=== PATIENT | female | born 1940 | race Caucasian/White ===

== ENCOUNTER 2017-11-26 13:28 | Emergency (ER) | payer MEDICARE ==
[~2017-11-26] VITALS: Ht 162.6 cm; Wt 90.7 kg
[~2017-11-26 13:28] MED LIST: ALTOPREV20 MG PO; AMBIEN10 MG PO; BACTRIM 400-801 EACH PO; BACTRIM DS TAB1 EACH PO; CIPRO500 MG PO; CYCLOBENZAPRINE10 MG PO; FLAGYL500 MG PO; FORTAMET500 MG PO; HYDROCODON-ACE1 EA11 PO; LIPITOR10 MG PO; LISINOPRIL10 MG PO; LISINOPRIL20 MG PO; MELOXICAM15 MG PO; METFORMIN HCL500 M1 PO; METFORMIN HCL500 MG PO; MIRALAX17 GM PO; NORCO 5-325 TA1 EACH PO; NORCO 7.5-3251 EACH PO; OMEPRAZOLE20 MG PO; ONDANSETRON ODT4 MG SL; OXECTA7.5 MG PO; PAROXETINE HCL20 MG PO; PAXIL20 MG PO; PERCOCET 5-3251 EACH PO; POTASSIUM99 MG PO; SUDOGEST30 MG PO; TRAMADOL HCL50 MG PO; VITAMIN D2000 UNIT PO; XARELTO10 MG PO; ZOFRAN4 MG PO
== END 2017-11-26 13:44 | disposition home or self-care (01) ==
LOC: ED 13:28
DX: R30.9 Painful micturition, unspecified (principal); Z87.891 Personal history of nicotine dependence

== ENCOUNTER 2018-07-31 07:55 | Day surgery (SDC) | payer MEDICARE ==
[~2018-07-31] VITALS: Ht 162.6 cm; Wt 90.7 kg
[~2018-07-31 07:55] MED LIST changes: +COQ-10100 MG PO
--- NOTE | 2018-07-31 11:09 | NUR ---
07/31/18 1109 Frida Bryant 1005- PT ARRIVES TO PACU FROM OR ON 6 L MASK WITH SATS 100%. RESP EVEN AND UNLABORED. PT UNRESPONSIVE TO VERBAL STIMULUS. NASAL PACKING AND GAUZE CDI. 1009- PT SITS UP IN BED AND BEGINS COUGHING FORCEFULLY. RN SUCTIONS AT BEDISDE. SWING DRIVER TAKES OVER ON SUCTION AND PT'S AIRWAY SUCTIONED. BLOODY DRAINAGE.
--- NOTE | 2018-07-31 12:35 | NUR ---
1200: PATIENT BACK IN DAY SURGERY ROOM FROM PACU. PATIENT C/O HEADACHE. UNABLE TO RATE PAIN, BUT STATES SHE IS HAVING PAIN. USING ICE PACK TO FOREHEAD. PATIENT HAS NASAL PACKING IN PLACE WITH MOUSTACHE DRESSING WITH MODERATE RED DRAINAGE. LEFT SIDE OF FACE BOTTOM OF CHEEK SLIGHTLY SWOLLEN, SOFT. DR. BLACKWOOD AWARE. PATIENT OFFERED SOMETHING TO EAT SO SHE COULD BE MEDICATED WITH PO PAIN PILLS. PATIENT DECLINED EATING AT THIS TIME. VS CHECKED. CALL LIGHT WITHIN REACH. SCDs ON. 1225: MOUSTACHE DRESSING CHANGED. PATIENT COUGHING INTERMITTENTLY. PRODUCTIVE COUGH, WITH BLOOD TINGED SPUTUM. PATIENT ASSISTED OOB AND TO BATHROOM. GAIT STEADY. PATIENT HAD SOME INCONTINENCE IN BED. BED SHEETS CHANGED. VOID WITHOUT DIFFICULTY IN BATHROOM. PATIENT ASSISTED BACK TO ROOM. GAIT STEADY. SCDs REPLACED. CALL LIGHT WITHIN REACH. 1230: PATIENT GIVEN JELLO TO EAT, THEN MEDICATED FOR 5/10 HEADACHE PAIN WITH 2 TABS OF NORCO.
--- NOTE | 2018-07-31 13:02 | NUR ---
TOWEL GIVEN TO COVER HER HEAD D/T LIGHT COMING INTO THE ROOM. PATIENT DENIES WANTING THE CURTAIN CLOSED SHE IS "CLAUSTROPHOBIC". PATIENT ASSISTED TO THE BATHROOM. FAMILY @ BS. PATIENT AMBULATES WELL AND DENIES DIZZINESS. CALL LIGHT W/IN REACH.
[2018-07-31] MEDS ORDERED: KEFLEX500 MG PO (13:51)
[2018-07-31] MEDS ORDERED: NORCO 5-325 TA1 EACH PO (13:51)
--- NOTE | 2018-07-31 14:33 | NUR ---
1405: PATIENT TOLERATED MORE JELLO AND ICE CREAM. WATCHING TV. STATES SHE'S FEELING MUCH BETTER. CALL LIGHT WITHIN REACH. SCDs ON.
--- NOTE | 2018-07-31 14:40 | NUR ---
MOKAILEYACHE DRESSING CHANGED X 2.
--- NOTE | 2018-07-31 15:17 | NUR ---
1455: PATIENT STATES READY TO GO HOME. DRESSED WITH HELP FROM FRIEND. DISCHARGE INSTRUCTIONS GIVEN TO PATIENT AND FRIEND. IV DC'D WNL. TIP INTACT. DRESSING APPLIED. PATIENT DISCHARGED TO HOME WITH FRIEND VIA WHEELCHAIR.
--- NOTE | 2018-08-07 12:22 | OR ---
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 POSTOPERATIVE DIAGNOSIS: Nasal obstruction due to septal deformity and inferior turbinate hypertrophy. PROCEDURE: Septoplasty. Cautery of the inferior turbinates, submucosal. SURGEON: Erasmo Monson MD ANESTHESIA: General LMA. ROTARY LITHOGRAPHIC PRESS OPERATOR Philip. PREOPERATIVE HISTORY: Tree is a 78-year-old lady with nasal obstruction, sinus headaches due to inferior turbinate hypertrophy and septal deformity. Sinus CT has otherwise been negative. She is taken to the operating room for the above-mentioned procedures after failure of appropriate medications to alleviate her condition. OPERATIVE PROCEDURE AND FINDINGS: After informed consent, the patient was taken to the operating room, placed in the supine position where general LMA anesthesia was induced. The patient and procedure were verified. The patient received preoperative intranasal oxymetazoline and intravenous Ancef. Headlight speculum exam of the nasal cavity showed a significant septal deformity, left-sided, partially obstructive with this large spur back posteriorly. The septal mucosa was injected with 1% lidocaine with epi. The mucosa was elevated off the deviated bone and cartilage and that bone and cartilage was removed with the Arlene. The septum was medialized, and airway improved in this manner. The inferior turbinates were then cauterized with a long handle needle point cautery, multiple passes starting on the right medial and inferior surface of the inferior turbinate extending all the way back posteriorly. Excellent decongestion of the inferior turbinate, shrinkage in size was obtained. Same procedure on the left inferior turbinate. Bleeding was minimal, stopped afterwards. Packing was placed, trimmed. Electronically Signed By: ERASMO MONSON MD 08/07/18 1222 PATIENT NAME: TREE GARCIA OPERATIVE REPORT DATE OF : 44 REPORT #: [id number] PHYSICIAN: ERASMO MONSON MD PCP: KING CAPUTO REPORT IS CONFIDENTIAL AND NOT TO BE RELEASED WITHOUT AUTHORIZATION [facility] [address] [place], [place] [address] Signed Merocel equal amount each side coated with Neosporin tied anteriorly over a pad. The pharynx was suctioned clear of blood and secretions. The patient was then awakened, extubated, transported to the recovery room in good condition. No complications. BLOOD LOSS: Minimal. SPECIMENS: Septal cartilage to pathology packing one piece of mesh with Merocel each nostril. Blood loss minimal. No complications and no drains. Erasmo Monson MD GC/MODL /[id number] Copies: ~ Electronically Signed By: ERASMO MONSON MD 08/07/18 1222 PATIENT NAME: TREE GARCIA OPERATIVE REPORT DATE OF : 44 REPORT #: [id number] PHYSICIAN: ERASMO MONSON MD PCP: KING CAPUTO REPORT IS CONFIDENTIAL AND NOT TO BE RELEASED WITHOUT AUTHORIZATION
== END 2018-07-31 15:10 | disposition home or self-care (01) ==
LOC: DS 07:55
PROVIDERS: Otolaryngology
PROC: 09SM0ZZ Reposition Nasal Septum, Open Approach (ICD-10-PCS; principal; 2018-07-31 09:45)
PROC: 095L0ZZ Destruction of Nasal Turbinate, Open Approach (ICD-10-PCS; 2018-07-31 09:45)
DX: J34.2 Deviated nasal septum (principal); J34.3 Hypertrophy of nasal turbinates; J34.89 Other specified disorders of nose and nasal sinuses; I10 Essential (primary) hypertension; E78.00 Pure hypercholesterolemia, unspecified; H91.90 Unspecified hearing loss, unspecified ear; Z79.899 Other long term (current) drug therapy; Z79.84 Long term (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 hypoglycemic drugs
CPT/HCPCS: 00160; 88304; 88311; J0690; J2405; J2704; J2765; J3010; J7120

== ENCOUNTER 2019-03-21 04:41 | Emergency (ER) | payer MEDICARE ==
[~2019-03-21] VITALS: Ht 162.6 cm; Wt 90.7 kg
[~2019-03-21 04:41] MED LIST changes: +KEFLEX500 MG PO
--- OUTSIDE RECORDS SUMMARY | 2019-03-21 04:44 | XMS ---
PreManage Notification: TREE GARCIA Security Boiler Erector Events No recent Security Events currently on file CRITERIA MET - [facility] CARE PROVIDERS Johnathan Quintero Primary Care Current PHONE: Unknown yue Case or Cisco Certified Internetwork Expert Current PHONE: Unknown Fortunato Cavalier Baljeet Current Orthopedic Surgery \T\ Fracture Clinic PHONE: Unknown Artis has no Care Guidelines for this patient. ECherelle VISIT COUNT (12 MO.) [facility] TOTAL 2 NOTE: Visits indicate total known visits. ED/UCC VISIT TRACKING (12 MO.) 03/21/2019 04:42 [facility] TYPE: Emergency COMPLAINT: - FALL, DIZZINESS,BLOOD SUGAR PROBLEM 10/01/2018 00:50 [facility] TYPE: Emergency DIAGNOSES: - Low back pain - Dorsalgia, unspecified - Back Pain INPATIENT VISIT TRACKING (12 MO.) No inpatient visits to display in this time frame [email or web address]
[2019-03-21] MEDS ORDERED: LISINOPRIL10 MG PO (05:01)
[2019-03-21] MEDS ORDERED: NEURONTIN300 MG PO (05:07)
[2019-03-21] MEDS ORDERED: FLONASE ALLERG9.9 ML NAS (05:07)
[2019-03-21] MEDS ORDERED: KRILL OIL 3501 EACH PO (05:08)
[2019-03-21] MEDS ORDERED: ROSUVASTATIN CA10 MG PO (05:08)
[2019-03-21] MEDS ORDERED: TRAMADOL HCL50 MG PO (06:28)
--- NOTE | 2019-03-21 14:35 | EKG ---
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
== END 2019-03-21 06:50 | disposition home or self-care (01) ==
LOC: ED 04:41
DX: S06.0X0A Concussion without loss of consciousness, initial encounter (principal); S80.01XA Contusion of right knee, initial encounter; I10 Essential (primary) hypertension; E11.9 Type 2 diabetes mellitus without complications; E78.5 Hyperlipidemia, unspecified; Z87.891 Personal history of nicotine dependence; Z88.5 Allergy status to narcotic agent; Z79.84 Long term (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 hypoglycemic drugs; Z79.899 Other long term (current) drug therapy; W01.198A Fall on same level from slipping, tripping and stumbling with subsequent striking against other object, initial encounter
CPT/HCPCS: 70450; 72125; 73560; 80053; 81001; 83735; 84484; 85025; 85610; 85730; 93005; 93010; 96361; 96374; 96375; 99285-25; J2270; J2405; J7040

== ENCOUNTER 2019-03-31 23:55 | Day surgery (SDC) | payer MEDICARE ==
[~2019-03-31] VITALS: Ht 162.6 cm; Wt 88.5 kg
[~2019-03-31 23:55] MED LIST changes: +FLONASE ALLERG9.9 ML NAS; +KRILL OIL 3501 EACH PO; +NEURONTIN300 MG PO; +ROSUVASTATIN CA10 MG PO
--- OUTSIDE RECORDS SUMMARY | 2019-03-31 23:58 | XMS ---
PreManage Notification: TREE GARCIA Security Court Registry Officer Events No recent Security Events currently on file CRITERIA MET - [facility] - [facility] - 2 Visits in 30 Days CARE PROVIDERS KING CAPUTO Nurse Practitioner: 03/21/2019-Current PHONE: Unknown Johnathan Quintero Primary Care Current PHONE: Unknown yue Case or Straddle Truck Operator Current PHONE: Unknown Fortunato Delong Current Orthopedic Surgery \T\ Fracture Clinic PHONE: Unknown Artis has no Care Guidelines for this patient. Angelica VISIT COUNT (12 MO.) 1 [facility] 2 [facility] TOTAL 3 NOTE: Visits indicate total known visits. ED/UCC VISIT TRACKING (12 MO.) 03/31/2019 23:55 [facility] TYPE: Emergency COMPLAINT: - CHEST PAIN 03/21/2019 04:42 [facility] TYPE: Emergency COMPLAINT: - FALL, DIZZINESS,BLOOD SUGAR PROBLEM DIAGNOSES: - Contusion of right knee, initial encounter - Fall on same level from slipping, tripping and stumbling with subsequent striking against other object, initial encounter - Personal history of nicotine dependence - Hyperlipidemia, unspecified - Allergy status to narcotic agent status - skilled nursing (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 hypoglycemic drugs - Type 2 diabetes mellitus without complications - Other buttermaker continuous churn (current) drug therapy - Concussion without loss of consciousness, initial encounter - Dizziness and giddiness - Essential (primary) hypertension [facility]01/2018 00:50 [facility]: [facility] DIAGNOSES: - Low back pain - Dorsalgia, unspecified - Back Pain INPATIENT VISIT TRACKING (12 MO.) No inpatient visits to display in this time frame [email or web address]
--- NOTE | 2019-04-01 09:32 | NUR ---
PT CALL LIGHT ALARMING. PT REQUESTS TO USE BATHROOM. PT AMBULATES IN [place] WITH STAND BY ASSIST FROM THIS RN. PT ABLE TO VOID WITHOUT DIFFICULTY AND AMBULATES BACK TO BED. CALL LIGHT WITHIN REACH
--- NOTE | 2019-04-01 09:59 | NUR ---
04/01/19 0959 Malathi Sheppard 0902 PT ARRIVED TO PACU ON 4L VIA NC, RESP EVEN AND UNLABORED.
--- NOTE | 2019-04-02 09:18 | EKG ---
[facility] [address] 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
--- NOTE | 2019-04-02 12:36 | OR ---
[facility] [address] [place], [place] [address] Signed DATE OF OPERATION: SURGEON: Marcelo Long MD PREOPERATIVE DIAGNOSIS: Dysphagia. POSTOPERATIVE DIAGNOSES: 1. Dysphagia. 2. Erosive gastritis. PROCEDURE PERFORMED: EGD with biopsies. ANESTHESIA: MAC sedation. ESTIMATED BLOOD LOSS: Scant. SPECIMENS ACQUIRED: Biopsies of distal antrum, angularis, and EG junction. COMPLICATIONS: No complications incurred. INDICATIONS FOR PROCEDURE: This 78-year-old woman experienced dysphagia with lodging of a meat bolus in her esophagus 4 days ago that she was able to dislodge and expectorate within 5 minutes. However, she thereafter experienced ongoing dysphagia and pain in her mid chest from swallowing solid foods, radiating into her back and right shoulder. She was able to ingest liquids without difficulty and experienced no recurrent obstruction of her esophagus. FINDINGS AND DESCRIPTION OF PROCEDURE: The patient was maintained in the left recumbent position while time was paused to verify her identity, proposed procedure and safety check list. After induction of MAC sedation, a bite block was placed and the flexible gastroscope inserted, passed uneventfully beyond the esophagus and into the stomach that was insufflated Electronically Signed By: MARCELO LONG MD 04/02/19 1236 PATIENT NAME: TREE GARCIA OPERATIVE REPORT DATE OF : 44 REPORT #: [id number] PHYSICIAN: MARCELO LONG MD PCP: KING CAPUTO VAMP STITCHER REPORT IS CONFIDENTIAL AND NOT TO BE RELEASED WITHOUT AUTHORIZATION [facility] [address] [place], [place] [address] Signed for better visualization. Retroflexion of the endoscope to view the esophageal inlet revealed no varices, Agueda-Sams tear, stenosis, neoplasia, hiatal hernia, or active ulcers. Scattered superficial erosive gastritis was present in the fundus and antrum, with a questionable small prepyloric ulcer versus nondescript mucosal edema. The endoscope was advanced beyond the pylorus into the duodenum, inspecting the bulb, second portion and third portions of the duodenum and noting no evidence of active ulcers, erosion, duodenitis, Dieulafoy lesion, stenosis, neoplasia, or other visible abnormalities. The endoscope was retracted into the stomach and the distal antrum once again inspected, next acquiring biopsies for histology as well as JAMARCUS test. Blood loss was scant and hemostasis was spontaneous, then careful re-inspection of the cardia, fundus, body and antrum revealed no additional abnormalities. The stomach was desufflated and the endoscope retracted into the distal esophagus, identifying the EG junction at 35 cm from the incisors. No varices, Gonzalez changes, web, ring, achalasia, neoplasm, mass impingement or stenosis were recognized. An additional biopsy was acquired from the EG junction, then the endoscope carefully withdrawn throughout the length of the esophagus to inspect the distal, middle, proximal and inlet regions of the esophagus where no stenosis, narrowing, mass impingement or inflammation was identified. Secretions were aspirated from the pharynx and the larynx briefly examined, noting no gross abnormalities. Again, no pharyngeal neoplasm was recognized, therefore, the endoscope was removed to conclude the endoscopic procedure. The patient was awakened from her sedation and transported to the PACU in satisfactory condition prior to her release. She may thereafter follow up with her PCP. Marcelo Long MD Electronically Signed By: MARCELO LONG MD 04/02/19 1236 PATIENT NAME: TREE GARCIA OPERATIVE REPORT DATE OF : 44 REPORT #: [id number] PHYSICIAN: MARCELO LONG MD PCP: KING CAPUTO REPORT IS CONFIDENTIAL AND NOT TO BE RELEASED WITHOUT AUTHORIZATION [facility] [address] [place] [address] Signed ZAHRA /[id number] Copies: ~ Electronically Signed By: MARCELO LONG MD 04/02/19 1236 PATIENT NAME: TREE GARCIA OPERATIVE REPORT DATE OF : 44 REPORT #: [id number] PHYSICIAN: MARCELO LONG MD PCP: KING CAPUTO REPORT IS CONFIDENTIAL AND NOT TO BE RELEASED WITHOUT AUTHORIZATION
--- NOTE | 2019-04-02 12:45 | HP ---
[facility] [address] [place], [place] [address] Signed ADMISSION DATE: 04/01/2019 DATE OF ADMISSION: 04/01/2019 HISTORICAL SUMMARY: This 78-year-old female was evaluated in the emergency department today with complaints of ongoing dysphagia for the last 4 days. She swallowed a bolus of meat 4 days ago and experienced dysphagia with the bolus sticking in her mid esophagus, causing pain in the mid chest region radiating into her back and right shoulder. After 5 minutes, she was able to dislodge and expectorate the meat bolus, but has since experienced ongoing discomfort in the same region of her chest for the last 4 days with eating. She is able to handle her oral secretions and drink water and other liquids without difficulty, yet has confined herself to a soft diet that still causes her discomfort when she swallows. She denied GI bleeding or prior history of food impactions. Aside from GERD, for which she takes Tums, she denied ulcers or other gastrointestinal disorders. PAST MEDICAL HISTORY: Remarkable for hypercholesterolemia for which she takes statin drugs every other day, hypertension treated with lisinopril and prediabetes managed with Metformin. She also has restless leg syndrome for which she takes gabapentin and occasionally Flexeril, and has an "attitude" problem that is treated with Paxil. She denied any other illnesses, prescription medications or history of venous thromboembolism, use of anticoagulants or tobacco consumption. Her surgical history was remarkable for a tubal treated with left salpingectomy in 1972 with incidental appendectomy. She also underwent D&C's for miscarriages, right hip replacement in January of 2003, left hip replacement in May of 2003, right shoulder replacement in 2006, left shoulder replacement in 2010, EGD more than 5 years ago and left knee replacement in 2016. Electronically Signed By: KAMI CHENG MD 04/02/19 1245 PATIENT NAME: TREE GARCIA HISTORY AND PHYSICAL DATE OF : 44 REPORT #: [id number] PHYSICIAN: KAMI CHENG MD PCP: KING CAPUTO REPORT IS CONFIDENTIAL AND NOT TO BE RELEASED WITHOUT AUTHORIZATION [facility] [address] [place], [place] [address] Signed There were no other operations recalled and she denied additional chronic medical illnesses. Ethanol intake is occasional and she is allergic to Dilaudid that causes headaches and vomiting. She received a blood transfusion in 1969 during one of her miscarriages. REVIEW OF SYSTEMS: Noncontributory. PHYSICAL EXAMINATION: GENERAL: Revealed a well-developed, well-nourished, overweight elderly female who was alert and articulate, in no acute physical discomfort. HEENT: Negative for jaundice, pallor, cyanosis, cervical lymphadenopathy, thyromegaly, crepitus, edema, masses, bruits, hemangiomas or tenderness. NECK: Muscles were supple with full range of motion, no acute oropharyngeal lesions were recognized and Mallampati was type 2. HEART: Tones were distant with no audible murmur, gallop, click or rub. LUNGS: Clear by ausculation bilaterally with full and symmetrical breath sounds heard posteriorly and no audible rales, wheezes, stridor or rhonchi. STUDIES: A chest x-ray film obtained in the emergency department overnight was unremarkable. ECG illustrated an inferior infarction, age undetermined, with no other acute changes described. IMPRESSION: A 78-year-old female with persistent dysphagia after a solitary initial episode of food impaction 4 days ago. Consideration must be given to esophagitis, neoplasia or stricture as potential underlying causes. PLAN: The patient was counseled about the possibilities, her treatment alternatives, the scope in nature of EGD with possible biopsies, rationale, risks, potential complications and other relevant concerns. Her questions were answered fully to her understanding and satisfaction and she granted her informed consent for esophagogastroduodenoscopy with possible biopsies that will be conducted under MAC sedation with anesthesia standby. Electronically Signed By: KAMI CHENG MD 04/02/19 1245 PATIENT NAME: TREE GARCIA HISTORY AND PHYSICAL DATE OF : 44 REPORT #: [id number] PHYSICIAN: KAMI CHENG MD PCP: KING CAPUTO REPORT IS CONFIDENTIAL AND NOT TO BE RELEASED WITHOUT AUTHORIZATION [address] [address] Signed The endoscopy staff has been notified and arrangements are pending. MD IGNACIO Duran/OMER /[id number] Copies: ~ Electronically Signed By: KAMI CHENG MD 04/02/19 1245 PATIENT NAME: TREE GARCIA HISTORY AND PHYSICAL DATE OF : 44 REPORT #: [id number] PHYSICIAN: KAMI CHENG MD PCP: KING CAPUTO REPORT IS CONFIDENTIAL AND NOT TO BE RELEASED WITHOUT AUTHORIZATION
== END 2019-04-01 10:55 | disposition home or self-care (01) ==
LOC: ED 23:55 → DS 04-01 08:18
PROVIDERS: Surgery
PROC: 0DB68ZX Excision of Stomach, Via Natural or Artificial Opening Endoscopic, Diagnostic (ICD-10-PCS; 2019-04-01)
PROC: 0DB48ZX Excision of Esophagogastric Junction, Via Natural or Artificial Opening Endoscopic, Diagnostic (ICD-10-PCS; principal; 2019-04-01 10:00)
DX: K29.60 Other gastritis without bleeding (principal); K20.9 Esophagitis, unspecified; I10 Essential (primary) hypertension; E78.00 Pure hypercholesterolemia, unspecified
CPT/HCPCS: 71046; 80053; 84484; 85025; 85610; 85730; 86677; 93005; 93010; 96365; 96366; 99285-25; J2704; J3480; J7040; J7120

== ENCOUNTER 2019-04-04 16:56 | Emergency (ER) | payer MEDICARE ==
[~2019-04-04] VITALS: Ht 162.6 cm; Wt 88.5 kg
--- OUTSIDE RECORDS SUMMARY | 2019-04-04 17:00 | XMS ---
PreManage Notification: TREE GARCIA Security Automobile Service Advisor Events No recent Security Events currently on file CRITERIA MET - [facility] - Has Care Guidelines - PDMP - [facility] - 2 Visits in 30 Days CARE PROVIDERS KING CAPUTO Nurse Practitioner: 03/21/2019-Current PHONE: Unknown Johnathan Quintero Primary Care Ann LOPEZ PHONE: Unknown yue Case or Punch Press Feeder Current PHONE: Unknown Fortunato Delong Current Orthopedic Surgery \T\ Fracture Clinic PHONE: Unknown Artis has no Care Guidelines for this patient. Care History Medical/Surgical 04/02/2019 [facility] - Patient is currently established with [facility]. If patient is seen in the ED during business hours. Please contact CHWs at [facility]. Care Recommendation: This patient has had 5 or more Emergency Department visits in the last 12 months.\T\nbsp; Patient requires education on the scope and purpose of the ED as an acute care provider not a Primary Care Provider and should not be utilized for chronic conditions.\T\nbsp; These are guidelines and the provider should exercise clinical judgment when providing care. E.D. VISIT COUNT (12 MO[address] 1 [facility] 3 [facility] TOTAL 4 NOTE: Visits indicate total known visits. ED/UCC VISIT TRACKING (12 MO.) 04/04/2019 16:57 [facility] TYPE: Emergency COMPLAINT: - HEAD/ LEFT ELBOW INJURY 03/31/2019 23:55 [facility] TYPE: Emergency [...] Allergy status to narcotic agent status - global consumer sector vice president (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 hypoglycemic drugs - Type 2 diabetes mellitus without complications - Other nursing home (current) drug therapy - Concussion without loss of consciousness, initial encounter - Dizziness and giddiness - Essential (primary) hypertension [facility]/2018 00:[facility] TYPE: Emergency DIAGNOSES: - Low back pain - Dorsalgia, unspecified - Back Pain INPATIENT VISIT TRACKING (12 MO.) No inpatient visits to display in this time frame [email or web address]
== END 2019-04-04 17:52 | disposition home or self-care (01) ==
LOC: ED 16:56
DX: S50.312A Abrasion of left elbow, initial encounter (principal); I10 Essential (primary) hypertension; E11.9 Type 2 diabetes mellitus without complications; E78.5 Hyperlipidemia, unspecified; Z88.5 Allergy status to narcotic agent; Z79.899 Other long term (current) drug therapy; Z79.84 Long term (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 hypoglycemic drugs; W18.30XA Fall on same level, unspecified, initial encounter
CPT/HCPCS: 99283

== ENCOUNTER 2019-05-29 07:45 | Emergency (ER) | payer MEDICARE ==
[~2019-05-29] VITALS: Ht 162.6 cm; Wt 88.5 kg
--- OUTSIDE RECORDS SUMMARY | ~2019-05-29 | XMS | Encounter Summary ---
Demographics + + + | Address | [address] | | | [place] [address] | + + + | Home Phone | | + + + | Preferred Language | Unknown | + + + | Marital Status | | + + + | Restorationist Affiliation | 1041 | + + + | Race | Unknown | + + + | Ethnic Group | Unknown | + + + Author + + + | Author | [facility] | | | and [place] | + + + | Organization | [facility] | | | and [...] [place], [place] | | | | | [address] | | + + + + + | Mercedes Lemus | ECON | [place] | | | | | [address] | | + + + + + Care Team Providers + +------+ + | Care Shovel Mechanic Name | Role | Phone | + +------+ + | Martell Hilario NP | PCP | | + +------+ + Encounter Details +--------+ + + + + | Date | Type | Department | Care Team | Description | +--------+ + + + + | 03/21/ | Imaging | JESIKA ARMANDO | Provider, | | | 2019 | Exam | [facility] | MD [address] | | | | | IMAGING | Gagandeep Tran | | | | | [phone] | [place] [address] | | +--------+ + + + + [...] + +---------+ + | Alcohol Use | Drinks/We | oz/Week | Comments | | | ek | | | + + +---------+ + | Yes | 0 | 0.0 | Alcoholic Drinks/day: socially | | | Standard | | | | | drinks or | | | | | | | | | | equivalen | | | | | t | | | + + +---------+ + [...] this | | CONTRAST | e | 0:00 PDT | | procedure are in the | | | | | | results section. | + +--------+ + + + documented in this encounter Results CT Cervical Spine wo Contrast (03/21/2019 0:00 PDT) + + | Specimen | + [...]
--- OUTSIDE RECORDS SUMMARY | ~2019-05-29 | XMS | Encounter Summary ---
Demographics + + + | Address | [address] | | | [place] [address] | + + + | Home Phone | | + + + | Preferred Language | Unknown | + + + | Marital Status | | + + + | Druze Affiliation | 1041 | + + + | Race | Unknown | + + + | Ethnic Group | Unknown | + + + Author + + + | Author | [facility] | | | and [place] | + + + | Organization | [facility] | | | [...] [place], [place] | | | | | [address] | | + + + + + | Mercedes Lemus | ECON | [place] | | | | | [address] | | + + + + + Care Team Providers + +------+ + | Care Method Consultant Name | Role | Phone | + [...] Gagandeep Tran | | | | | [phone] | [place] [address] | | +--------+ + + + + [...] + documented in this encounter Results CT Head wo Contrast (03/21/2019 0:05 [...]
--- OUTSIDE RECORDS SUMMARY | ~2019-05-29 | XMS | Encounter Summary ---
Demographics + + + | Address | [address] | | | [place] [address] | + + + | Home Phone | | + + + | Preferred Language | Unknown | + + + | Marital Status | | + + + | Tenriism Affiliation | 1041 | + + + | Race | Unknown | + + + | Ethnic Group | Unknown | + + + Author + + + | Author | [facility] | | | and [place] | + + + | Organization | [facility] | | | [...] [place], [place] | | | | | [address] | | + + + + + | Mercedes Lemus | ECON | [place] | | | | | [address] | | + + + + + Care Team Providers + +------+ + | Care Medical Office Manager Name | Role | Phone | [...] Gagandeep Tran | | | | | [phone] | [place] [address] | | +--------+ + + + + [...]
--- OUTSIDE RECORDS SUMMARY | ~2019-05-29 | XMS | Clinical Summary ---
Demographics + + + | Address | [address] | | | [place] [address] | + + + | Home Phone | | + + + | Preferred Language | Unknown | + + + | Marital Status | | + + + | Caodaism Affiliation | 1041 | + + + | Race | Unknown | + + + | Ethnic Group | Unknown | + + + Author + + + | Author | [facility] | | | and [place] | + + + | Organization | [facility] | | | and [...] [place], [place] | | | | | [address] | | + + + + + | Mercedes Lemus | ECON | [place] | | | | | [address] | | + + + + + Care Team Providers + +------+ + | Care Contact Center Agent Name | Role | Phone | + [...] +--------+ +---------+--------+ | MEDICARE | MEDICA | [id number] | | [phone] | | Medica | [...] | Self | [birth year] | [address] | | | al/[place]quale | | 1940 | [phone] | [place] | | | dayna | | | 1 (Home) | [address] | + +--------+ +--------+ + + Advance Directives Patient has advance care planning documents on file. For more information, please contact:[facility] [place] [address]
--- OUTSIDE RECORDS SUMMARY | ~2019-05-29 | XMS | Clinical Summary ---
Demographics + + + | Address | [address] | | | [place] [address] | + + + | Home Phone | | + + + | Preferred Language | Unknown | + + + | Marital Status | | + + + | Advent Affiliation | 1041 | + + + | Race | Unknown | + + + | Ethnic Group | Unknown | + + + Author + + + | Author | [facility] | | | and [place] | + + + | Organization | [facility] | | [...] [place], [place] | | | | | [address] | | + + + + + | Mercedes Lemus | ECON | [place] | | | | | [address] | | + + + + + Care Team Providers + +------+ + | Care Animal Rides Manager Name | Role | Phone | [...] +--------+ +---------+--------+ | MEDICARE | MEDICA | [id number] | | [phone] | | Medica | [...] | Self | [birth year] | | [address] | | | al/[place] | | 1940 | [phone] | [place] | | | dayna | | | 1 (Home) | [address] | + +--------+ +--------+ + + Advance Directives Patient has advance care planning documents on file. For more information, please contact:[facility] [place] [address]
--- OUTSIDE RECORDS SUMMARY | ~2019-05-29 | XMS | Clinical Summary ---
Demographics + + + | Address | [address] | | | [place] [address] | + + + | Home Phone | | + + + | Preferred Language | Unknown | + + + | Marital Status | | + + + | Episcopal Affiliation | 1041 | + + + | Race | Unknown | + + + | Ethnic Group | Unknown | + + + Author + + + | Author | [employer] (Historical as of | | | 03-09-19) | + + + | Organization | [facility] (Historical as of | | | 03-09-19) [...] [place] | | | | | [address] | | + + + + + | Mercedes Lemus | ECON | Unknown | | + + + + + Care Team Providers + +------+ + | Care Water Resource Agent Name | Role | Phone | [...] +------+-------+ + | MEDICARE | MEDICA | [id number] | | | [address] | | | RE | | | | [place] [address] | | | IP-OP | | | [...] Self | [birth year] | Home: | [address] | | | al/Fam | | 1940 | [phone] | [place] | | | [place] | | | [address] | [address] | + +--------+ +--------+ + +
--- OUTSIDE RECORDS SUMMARY | ~2019-05-29 | XMS | Encounter Summary ---
Demographics + + + | Address | [address] | | | [place] [address] | + + + | Home Phone | | + + + | Preferred Language | Unknown | + + + | Marital Status | | + + + | Samaritan Affiliation | 1041 | + + + | Race | Unknown | + + + | Ethnic Group | Unknown | + + + Author + + + | Author | [facility] | | | and [place] | + + + | Organization | [facility] | | | [...] [place], [place] | | | | | [address] | | + + + + + | Mercedes Lemus | ECON | [place] | | | | | [address] | | + + + + + Care Team Providers + +------+ + | Care Strap Buckler Name | Role | Phone | + [...] Gagandeep Tran | | | | | [phone] | [place] [address] | | +--------+ + + + + [...]
--- OUTSIDE RECORDS SUMMARY | ~2019-05-29 | XMS | Clinical Summary ---
Demographics + + + | Address | [address] | | | [place] [address] | + + + | Home Phone | | + + + | Preferred Language | Unknown | + + + | Marital Status | | + + + | Tenriism Affiliation | 1041 | + + + | Race | Unknown | + + + | Ethnic Group | Unknown | + + + Author + + + | Author | [employer] (Historical as of | | | 03-09-19) | + + + | Organization | [facility] [employer] (Historical as of | | | 03-09-19) [...] [place] | | | | | [address] | | + + + + + | Mercedes Lemus | ECON | Unknown | | + + + + + Care Team Providers + +------+ + | Care Event Planning Intern Name | Role | Phone | + [...] +------+-------+ + | MEDICARE | MEDICA | [id number] | | | [address] | | | RE | | | | [place] [address] | | | IP-OP | | | [...] Self | [birth year] | Home: | [address] | | | al/Fam | | 1940 | [phone] | [place] | | | [place] | | | [address] | [address] | + +--------+ +--------+ + +
--- OUTSIDE RECORDS SUMMARY | 2019-05-29 07:46 | XMS ---
PreManage Notification: TREE GARCIA Security Music Typographer Events No recent Security Events currently on file CRITERIA MET - [facility] KING CAPUTO Nurse Practitioner: 03/21/2019-Current PHONE: Unknown Jonhathan Quintero Primary Care Current PHONE: Unknown yue Suazo or Marketing Director Current PHONE: Unknown Fortunato Delong Current Orthopedic Surgery \T\ Fracture Clinic PHONE: Unknown Artis has no Care Guidelines for this patient. Care History Medical/Surgical 04/02/2019 [facility] - PATIENT HAS PCP FOLLOW UP APT ON 04/18/19 WITH KING CAPUTO. - Patient is currently established with [facility]. If patient is seen in the ED during business hours. Please contact CHWs at [facility]. Care Recommendation: This patient has had 5 [...] care. E.D. VISIT COUNT (12 MO.) [address] TOTAL 5 NOTE: Visits indicate total known visits. ED/UCC VISIT TRACKING (12 MO.) 05/29/2019 07:45 [facility] TYPE: Emergency COMPLAINT: - VOMITING 04/04/2019 16:57 [facility] TYPE: Emergency COMPLAINT: - HEAD/ LEFT ELBOW INJURY DIAGNOSES: - terminal supervisor (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 hypoglycemic drugs - Essential (primary) hypertension - Unspecified injury of head, initial encounter - Other intermodal owner operator truck driver (current) drug therapy - Abrasion of left elbow, initial encounter - 1 Type 2 diabetes mellitus without complications - Fall on same level, unspecified, initial encounter - Hyperlipidemia, unspecified - Allergy status to narcotic agent status 03/31/2019 23:55 [facility] TYPE: Emergency COMPLAINT: - CHEST PAIN 03/21/2019 04:42 [facility] TYPE: Emergency COMPLAINT: - FALL, DIZZINESS,BLOOD SUGAR PROBLEM DIAGNOSES: - Contusion of right knee, initial encounter - Fall same lev from slip/trip w strike agnst oth object, init - Personal history of nicotine dependence - Hyperlipidemia, unspecified - Allergy status to narcotic agent status - detention (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 hypoglycemic drugs - 1 Type 2 diabetes mellitus without complications - Other intermodal owner operator truck driver (current) drug therapy - Concussion without loss of consciousness, initial encounter - Dizziness and giddiness - Essential (primary) hypertension [facility]01/2018 00:50 [facility] DIAGNOSES: - Low back pain - Dorsalgia, unspecified - Back Pain INPATIENT VISIT TRACKING (12 MO.) No inpatient visits to display in this time frame [email or web address]
[2019-05-29] MEDS ORDERED: ZOFRAN4 MG PO (09:53)
[2019-05-30] MEDS ORDERED: REGLAN10 MG PO (21:16)
[2019-05-30] MEDS ORDERED: POTASSIUM CHLO10 MEQ PO (21:16)
== END 2019-05-29 10:09 | disposition home or self-care (01) ==
LOC: ED 07:45
DX: R11.2 Nausea with vomiting, unspecified (principal); E11.9 Type 2 diabetes mellitus without complications; I10 Essential (primary) hypertension; E78.5 Hyperlipidemia, unspecified; Z87.891 Personal history of nicotine dependence; Z79.899 Other long term (current) drug therapy; Z79.84 Long term (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 hypoglycemic drugs
CPT/HCPCS: 80048; 96374; 99284-25; J1885; J7030

== ENCOUNTER 2019-05-30 19:16 | Emergency (ER) | payer MEDICARE ==
[~2019-05-30] VITALS: Ht 162.6 cm; Wt 88.5 kg
--- OUTSIDE RECORDS SUMMARY | ~2019-05-30 | XMS | Clinical Summary ---
Demographics + + + | Address | [address] | | | [place] [address] | + + + | Home Phone | | + + + | Preferred Language | Unknown | + + + | Marital Status | | + + + | Anabaptist Affiliation | 1041 | + + + | Race | Unknown | + + + | Ethnic Group | Unknown | + + + Author + + + | Author | [facility] | | | and [place] | + + + | Organization | [facility] | | | and [place] | + + + | Address | Unknown | + + + | Phone | Unavailable | + + + Support + + + + + | Name | Relationship | Address | Phone | + + + + + | Law Collado | ECON | [address] | | | | | [place], [place] | | | | | [address] | | + + + + + | Mercedes Lemus | ECON | [place] | | | | | [address] | | + + + + + Care Team Providers + +------+ + | Care Retail Client Manager Name | Role | Phone | + [...] fusion | 11/05/2012 | + + + Encounters +--------+ + + + + | Date | Type | Specialty | Care Team | Description | +--------+ + + + + | 03/21/ | Imaging | Radiology | Provider, | | | 2018 | Exam | | MD Kristin | | +--------+ + + + + | 03/21/ | Imaging | Radiology | Provider, | | | 2018 | Exam | | MD Kristin | | +--------+ + + + + from Last 3 Months Family History + + +------+ + | [...] Filed Vital Signs + + + + | Vital Sign | Reading | Time Taken | + + + + | Blood Pressure | 174/78 | 10/01/2018 0258 PDT | + + + + | Pulse | 69 | 10/01/2018257 PDT | + + + + | Temperature | 36.5 C (97.7 F) | 10/01/2018257 PDT | + + + + | Respiratory Rate | 17 | 10/01/2018257 PDT | + + + + | Oxygen Saturation | - | - | + + + + | Inhaled Oxygen | - | - | | Concentration | | | + + + + | Weight | 88.5 kg (195 lb) | 10/01/2018257 PDT | + + + + | Height | 162.6 cm (5' 4") | 04/11/2018 1050 PDT | + + + + | Body Mass Index | 33.47 | 04/11/2018 1050 PDT | + + + + Plan of Treatment + + + + + | Health Maintenance | Due Date | Last Done | Comments | + + + + + | Vaccine: | | | | | Dtap/Tdap/Td (1 - | 1 | | | | Tdap) | | | | + + + + + | Vaccine: Zoster (1 | | | | | of 2) | 2 | | | + + + + + | Breast Cancer | | | | | Screening | 7 | | | + + + + + | Vaccine: | | | | | Pneumococcal 65+ | 7 | | | | Low/Medium Risk (1 | | | | | of 2 - PCV13) | | | | + + + + + | Adult Annual | | | | | Wellness Visit | 5 | | | + + + + + | Vaccine: Influenza | | 06/13/2018, 03/15/2017, | | | (#1) | 9 | 05/12/2016, Additional history | | | | | exists | | + + + + + Procedures + +--------+ + + + | Procedure Name | Priori | Date/Time | Associated Diagnosis | Comments | | | ty | | | | + +--------+ + + + | CT HEAD WO CONTRAST | Routin | 03/21/2019 | | Results for this | | | e | 0:05 PDT | | procedure are in the | | | | | | results section. | + +--------+ + + + | CT CERVICAL SPINE WO | Routin | 03/21/2019 | | Results for this | | CONTRAST | e | 0:00 PDT | | procedure are in the | | | | | | results section. | + +--------+ + + + from Last [address] Head wo Contrast (03/21/2019 0:05 PDT) + + | Specimen | + [...] | | | + +---------+ + + CT Cervical Spine wo Contrast (03/21/2019 0:00 [...] | | | + +---------+ + + from Last 3 Months Insurance + +--------+ +--------+ +---------+--------+ | Payer | Benefi | Subscriber | Effect | Phone | Address | Type | | | t Plan | ID | danial | | | | | | / | | Dates | | | | | | Group | | | | | | + +--------+ +--------+ +---------+--------+ | MEDICARE | MEDICA | [id number] | | [phone] | | Medica | [...] | Self | [birth year] | [address] | | | al/[place] | | 1940 | [phone] | [place] | | | [place] | | | 1 (Home) | [address] | + +--------+ +--------+ + + Advance Directives Patient has advance care planning documents on file. For more information, please contact:[facility] [place] [address]
--- OUTSIDE RECORDS SUMMARY | ~2019-05-30 | XMS | Clinical Summary ---
Demographics + + + | Address | [address] | | | [place] [address] | + + + | Home Phone | | + + + | Preferred Language | Unknown | + + + | Marital Status | | + + + | Church Affiliation | 1041 | + + + | Race | Unknown | + + + | Ethnic Group | Unknown | + + + Author + + + | Author | [employer] (Historical as of | | | 03-09-19) | + + + | Organization | [facility] [employer] (Historical as of | | | 03-09-19) | + + + | Address | Unknown | + + + | Phone | Unavailable | + + + Support + + + + + | Name | Relationship | Address | Phone | + + + + + | Law Collado | ECON | [address] | | | | | [place] | | | | | [address] | | + + + + + | Mercedes Lemus | ECON | Unknown | | + + + + + Care Team Providers + +------+ + | Care Paste Up Artist Name | Role | Phone | + +------+ + | Ron Mccoy DO | PP | | + +------+ + Allergies + + + + + + | Active Allergy | Reactions | Severity | Noted | Comments | | | | | Date | | + + + + + + | Hydromorphone | GI Distress | Low | 12/09/19 | | | | | | 15 | | + + + + + + Current Medications + + +--------+---------+------+------+-------+ | Prescription | Sig. | Disp. | Refills | Star | End | Statu | | | | | | t | Date | s | | | | | | Date | | | + + +--------+---------+------+------+-------+ | zolpidem (AMBIEN) | Take 5 mg by mouth | | | | | Activ | | 5 MG tablet | nightly as needed | | | | | e | | | for Sleep. | | | | | | + + +--------+---------+------+------+-------+ | | Take 1 tablet by | | | | | Activ | | oxyCODONE-acetaminop | mouth every 4 (four) | | | | | e | | hen (PERCOCET) 5-325 | hours as needed for | | | | | | | MG per tablet | Pain. | | | | | | + + +--------+---------+------+------+-------+ | cyclobenzaprine | Take 10 mg by mouth | | | | | Activ | | (FLEXERIL) 10 MG | 3 (three) times | | | | | e | | tablet | daily as needed for | | | | | | | | Muscle spasms. | | | | | | + + +--------+---------+------+------+-------+ | | Take 1 tablet by | | | | | Activ | | HYDROcodone-acetamin | mouth every 6 (six) | | | | | e | | ophen (NORCO) 5-325 | hours as needed for | | | | | | | MG per tablet | Pain. | | | | | | + + +--------+---------+------+------+-------+ | | Take 1 tablet by | 20 | 0 | 03/ | | Activ | | acetaminophen-codein | mouth every 6 (six) | tablet | | 08/12 | | e | | e (TYLENOL #3) | hours as needed for | | | 19 | | | | 300-30 MG per tablet | Pain. Do not take | | | | | | | | Tylenol with this | | | | | | | | medication. It has | | | | | | | | Tylenol in it. | | | | | | + + +--------+---------+------+------+-------+ Active Problems + + + | Problem | Noted Date | + + + | Chest pain, unspecified | 12/09/2014 | + + + | Unspecified essential hypertension | 12/09/2014 | + + + | Chronic back pain | 12/09/2014 | + + + Social History + +-------+ +--------+------+ | Tobacco Use | Types | Packs/Day | Years | Date | | | | | Used | | + +-------+ +--------+------+ | Never Smoker | | | | | + +-------+ +--------+------+ + +---+---+---+ | Smokeless Tobacco: | | | | | Never Used | | | | + +---+---+---+ + + +---------+ + | Alcohol Use | Drinks/We | oz/Week | Comments | | | ek | | | + + +---------+ + | Yes | | | socially | + + +---------+ + + + + | Sex Assigned at | Date Recorded | | | | + + + | Not on file | | + + + Last Filed Vital Signs + + + + | Vital Sign | Reading | Time Taken | + + + + | Blood Pressure | 174/78 | 10/01/2018 2:58 AM PDT | + + + + | Pulse | 69 | 10/01/2018 2:58 AM PDT | + + + + | Temperature | 36.5 C (97.7 F) | 10/01/2018 12:54 AM PDT | + + + + | Respiratory Rate | 17 | 10/01/2018 2:58 AM PDT | + + + + | Oxygen Saturation | 96% | 10/01/2018 2:58 AM PDT | + + + + | Inhaled Oxygen | - | - | | Concentration | | | + + + + | Weight | 88.5 kg (195 lb) | 10/01/2018 12:54 AM PDT | + + + + | Height | 162.6 cm (5' 4") | 12/09/2014 2:24 AM PDT | + + + + | Body Mass Index | 33.47 | 10/01/2018 12:54 AM PDT | + + + + Plan of Treatment Not on file Results Not on filefrom Last 3 Months Insurance + +--------+ +------+-------+ + | Payer | Benefi | Subscriber | Type | Phone | Address | | | t Plan | ID | | | | | | / | | | | | | | Group | | | | | + +--------+ +------+-------+ + | MEDICARE | MEDICA | [id number] | | | [address] | | | RE | | | | [place] [address] | | | IP-OP | | | | | + +--------+ +------+-------+ + + +--------+ +--------+ + + | Guarantor Name | Accoun | Relation to | Date | Phone | Billing Address | | | t Type | Patient | of | | | | | | | | | | + +--------+ +--------+ + + | MARY COLLADO | Person | Self [birth year] | Home: | [address] | | | al/Fam | | 1940 | [phone] | [place] | | | [place] | | | [address] | [address] | + +--------+ +--------+ + +
--- OUTSIDE RECORDS SUMMARY | ~2019-05-30 | XMS | Encounter Summary ---
Demographics + + + | Address | [address] | | | [place] [address] | + + + | Home Phone | | + + + | Preferred Language | Unknown | + + + | Marital Status | | + + + | Latter-Day Affiliation | 1041 | + + + [...] [place], [place] | | | | | [address] | | + + + + + | Mercedes Lemus | ECON | [place] | | | | | [address] | | + + + + + Care Team Providers + +------+ + | Care Application Integration Architect Name | Role | Phone | + [...] Gagandeep Tran | | | | | [phone] | [place] [address] | | +--------+ + + + + [...]
--- OUTSIDE RECORDS SUMMARY | ~2019-05-30 | XMS | Encounter Summary ---
Demographics + + + | Address | [address] | | | [place] [address] | + + + | Home Phone [...] [place], [place] | | | | | [address] | | + + + + + | Mercedes Lemus | ECON | [place] | | | | | [address] | | + + + + + Care Team Providers + +------+ + | Care Art History Instructor Name | Role | Phone | + [...] Gagandeep Tran | | | | | [phone] | [place] [address] | | +--------+ + + + + [...]
--- OUTSIDE RECORDS SUMMARY | ~2019-05-30 | XMS | Encounter Summary ---
Demographics + + + | Address | [address] | | | [place] [address] | + + + | Home Phone | | + + + | Preferred Language | Unknown | + + + | Marital Status | | + + + | Jehovah'S Witness Affiliation | 1041 | + + + | Race | Unknown | + + + | Ethnic Group | Unknown | + + + Author + + + | Author | [facility] | | | and [place] | + + + | Organization | [facility] | | | [...] [place], [place] | | | | | [address] | | + + + + + | Mercedes Lemus | ECON | [place] | | | | | [address] | | + + + + + Care Team Providers + +------+ + | Care Hospice Bereavement Coordinator Name | Role | Phone | [...] Gagandeep Tran | | | | | [phone] | [place] [address] | | +--------+ + + + + [...]
--- OUTSIDE RECORDS SUMMARY | ~2019-05-30 | XMS | Clinical Summary ---
Demographics + + + | Address | [address] | | | [place] [address] | + + + | Home Phone | | + + + | Preferred Language | Unknown | + + + | Marital Status | | + + + | Temple Affiliation | 1041 | + + + | Race | Unknown | + + + | Ethnic Group | Unknown | + + + Author + + + | Author | [employer] (Historical as of | | | 03-09-19) | + + + | Organization | [facility] [employer] (Historical as of | | | 03-09-19) [...] [place] | | | | | [address] | | + + + + + | Mercedes Lemus | ECON | Unknown | | + + + + + Care Team Providers + +------+ + | Care School Crossing Guard Supervisor Name | Role | Phone | [...] +------+-------+ + | MEDICARE | MEDICA | [id number] | | | [address] | | | RE | | | | [place] [address] | | | IP-OP | | | [...] Self | [birth year] | Home: | [address] | | | al/Fam | | 1940 | [phone] | [place] | | | [place] | | | [address] | [address] | + +--------+ +--------+ + +
--- OUTSIDE RECORDS SUMMARY | ~2019-05-30 | XMS | Encounter Summary ---
Demographics + + + | Address | [address] | | | [place] [address] | + + + | Home Phone | | + + + | Preferred Language | Unknown | + + + | Marital Status | | + + + | Christianity Affiliation | 1041 | + + + | Race | Unknown | + + + | Ethnic Group | Unknown | + + + Author + + + | Author | [facility] | | | and [place] | + + + | Organization | [facility] | | [...] [place], [place] | | | | | [address] | | + + + + + | Mercedes Lemus | ECON | [place] | | | | | [address] | | + + + + + Care Team Providers + +------+ + | Care Seat Cover Maker Name | Role | Phone | + [...] Gagandeep Tran | | | | | [phone] | [place] [address] | | +--------+ + + + + [...]
--- OUTSIDE RECORDS SUMMARY | ~2019-05-30 | XMS | Clinical Summary ---
Demographics + + + | Address | [address] | | | [place] [address] | + + + | Home Phone | | + + + | Preferred Language | Unknown | + + + | Marital Status | | + + + | Synagogue Affiliation | 1041 | + + + | Race | Unknown | + + + | Ethnic Group | Unknown | + + + Author + + + | Author | [facility] | | | and [place] | + + + | Organization | [facility] | | | [...] [place], [place] | | | | | [address] | | + + + + + | Mercedes Lemus | ECON | [place] | | | | | [address] | | + + + + + Care Team Providers + +------+ + | Care Retail Training Manager Name | Role | Phone | [...] +--------+ +---------+--------+ | MEDICARE | MEDICA | [id number] | | [phone] | | Medica | [...] | Self | [birth year] | [address] | | | al/Pasquale | | 1940 | [phone] | [place] | | | dayna | | | 1 (Home) | [address] | + +--------+ +--------+ + + Advance Directives Patient has advance care planning documents on file. For more information, please contact:[facility] [place] [address]
--- OUTSIDE RECORDS SUMMARY | 2019-05-30 19:20 | XMS ---
PreManage Notification: TREE GARCIA Security Urgent Care Physician Events No recent Security Events currently on file CRITERIA MET - [facility] - Has Care Guidelines - PDMP - [facility] - 2 Visits in 30 Days CARE PROVIDERS KING CAPUTO Nurse Practitioner: 03/21/2019-Current PHONE: Unknown Johnathan Quintero Primary Care Ann LOPEZ PHONE: Unknown yue Case or Wireless Sales Manager Current PHONE: Unknown Fortunato Delong Current Orthopedic Surgery \T\ Fracture Clinic PHONE: Unknown [facility] has no Care Guidelines for this patient. Care History Medical/Surgical 04/02/2019 [facility] - PATIENT HAS PCP FOLLOW UP APT ON 04/18/19 WITH KING CAPUTO. - Patient is currently established with [facility]. If patient is seen in the ED during business hours. Please contact [facility] at [facility]. Care Recommendation: This patient has had 5 [...] care. E.D. VISIT COUNT (12 MO.) 1 [facility] 5 [facility] TOTAL 6 NOTE: Visits indicate total known visits. 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 - Abrasion of left elbow, initial encounter - 1 Type 2 diabetes mellitus without complications - Fall on same level, unspecified, initial encounter - Hyperlipidemia, unspecified - Allergy status to narcotic agent status 03/31/2019 23:55 [facility] Maloneony Rosa Isela [place] TYPE: Emergency COMPLAINT: - CHEST PAIN 03/21/2019 04:42 [facility] Weinstein AgustinaSwapna [place] TYPE: Emergency COMPLAINT: - FALL, DIZZINESS,BLOOD SUGAR PROBLEM DIAGNOSES: - Contusion of right knee, initial encounter - Fall same lev from slip/trip w strike agnst oth object, init - Personal history of nicotine dependence - Hyperlipidemia, unspecified - Allergy status to narcotic agent status - 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: Emergency DIAGNOSES: - Low back pain - Dorsalgia, unspecified - Back Pain INPATIENT VISIT TRACKING (12 MO.) No inpatient visits to display in this time frame [email or web address]
[2019-05-30] MEDS ORDERED: REGLAN10 MG PO (21:16)
[2019-05-30] MEDS ORDERED: POTASSIUM CHLO10 MEQ PO (21:16)
== END 2019-05-30 21:30 | disposition home or self-care (01) ==
LOC: ED 19:16
DX: B34.9 Viral infection, unspecified (principal); E11.9 Type 2 diabetes mellitus without complications; I10 Essential (primary) hypertension; E78.5 Hyperlipidemia, unspecified; Z87.891 Personal history of nicotine dependence; Z79.899 Other long term (current) drug therapy; Z79.84 Long term (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 hypoglycemic drugs
CPT/HCPCS: 70450; 80053; 81001; 83690; 85025; 96361; 96374; 96375; 99284-25; J1200; J2765; J7030

== ENCOUNTER 2019-12-13 11:15 | Emergency (ER) | payer MEDICARE ==
[~2019-12-13] VITALS: Ht 162.6 cm; Wt 88.5 kg
--- OUTSIDE RECORDS SUMMARY | ~2019-12-13 | XMS | Encounter Summary ---
Demographics + + + | Address | [address] | | | [place] [address] | + + + | Home Phone | | + + + | Preferred Language | Unknown | + + + | Marital Status | | + + + | Taoism Affiliation | 1041 | + + + | Race | Unknown | + + + | Ethnic Group | Unknown | + + + Author + + + | Author | [facility] | | | and [place] | + + + | Organization | [facility] | | | and [place] | + + + | Address | Unknown | + + + | Phone | Unavailable | + + + Support + + + + + | Name | Relationship | Address | Phone | + + + + + | Law Collado | ECON | [address] | | | | | [place], [place] | | | | | [address] | | + + + + + | Mercedes Lemus | ECON | [place] | | | | | [address] | | + + + + + Care Team Providers + +------+ + | Care Plywood And Veneer Repairer Name | Role | Phone | + +------+ + | Hector Mccoy DO | PCP | | + +------+ + Reason for Visit +--------+ + | Reason | Comments | +--------+ + | Other | restrictions | +--------+ + Encounter Details +--------+ + + + + | Date | Type | Department | Care Team | Description | +--------+ + + + + | 06/20/ | Telephone | [facility] | Jose Juan Bo | Other (restrictions) | | 2011 | | NEUROSURGERY [address] | [address] | | | | | [address] [facility] [address] | [place], [place] | | | | | [place], [place] | [address] | | | | | [address] | [phone] | | | | [phone] | | | +--------+ + + + + Social History + +-------+ +--------+------+ | Tobacco Use | Types | Packs/Day | Years | Date | | | | | Used | | + +-------+ +--------+------+ | Never Smoker | | | | | + +-------+ +--------+------+ + + + | Sex Assigned at | Date Recorded | | | | + + + | Not on file | | + + + + + + + | Job Start Date | Occupation | Industry | + + + + | Not on file | Not on file | Not on file | + + + + + + + + | Travel History | Travel Start | Travel End | + + + + + + | No recent travel history available. | + + documented as of this encounter Plan of Treatment Not on filedocumented as of this encounter Visit Diagnoses Not on filedocumented in this encounter"
--- OUTSIDE RECORDS SUMMARY | ~2019-12-13 | XMS | Encounter Summary ---
Demographics + + + | Address | [address] | | | [place] [address] | + + + | Home Phone | | + + + | Preferred Language | Unknown | + + + | Marital Status | | + + + | Temple Affiliation | 1041 | + + + | Race | Unknown | + + + | Ethnic Group | Unknown | + + + Author + + + | Author | [facility] | | | and [place] | + + + | Organization | [facility] | | | [...] [place], [place] | | | | | [address] | | + + + + + | Mercedes Lemus | ECON | [place] | | | | | [address] | | + + + + + Care Team Providers + +------+ + | Care Batch Heat Treat Operator Name | Role | Phone | + +------+ + | Hector Mccoy DO | PCP | | + +------+ + Encounter Details +--------+ + + + + | Date | Type | Department | Care Team | Description | +--------+ + + + + | 06/19/ | Hospital | [facility] | Jose Juan Bo | Status post lumbar | | 2011 - | Encounter | MED CTR XRAY [address] | [address] | spinal fusion | | | | [address] [place] | [place], [place] | | | 06/21/ | | [place] [address] | [address] | | | 2011 | | [phone] | | | | | | | | +--------+ + + + [...] + + documented as of this encounter Medications at Time of Discharge + + + +---------+--------+ + | Medication | Sig | Dispensed | Refills | Start | End Date | | | | | | Date | | + + + +---------+--------+ + | lisinopril | Take 20 mg by mouth | | 0 | | | | (PRINIVIL, ZESTRIL) | Daily. | | | | | | 20 mg tablet | | | | | | + + + +---------+--------+ + | metFORMIN | Take 500 mg by mouth | | 0 | | | | (GLUCOPHAGE) 500 mg | daily (with | | | | | | tablet | breakfast). | | | | | + + + +---------+--------+ + | PARoxetine (PAXIL) | Take 20 mg by mouth | | 0 | | | | 20 mg tablet | nightly. | | | | | + + + +---------+--------+ + | zolpidem (AMBIEN) | Take 5 mg by mouth | | 0 | | | | 10 mg tablet | nightly as needed. | | | | | + + + +---------+--------+ + | cyclobenzaprine | Take 10 mg by mouth | | 0 | | | | (FLEXERIL) 10 mg | 3 times daily as | | | | 7 | | tablet | needed. | | | | | + + + +---------+--------+ + | lovastatin | Take 20 mg by mouth | | 0 | | | | (MEVACOR) 20 mg | Daily (with dinner). | | | | 7 | | tablet | | | | | | + + + +---------+--------+ + | | Take 1-2 tablets by | | 0 | | | | oxyCODONE-acetaminop | mouth every 4 hours | | | | 3 | | hen (PERCOCET) | as needed. | | | | | | 7.5-325 mg per | | | | | | | tablet | | | | | | + + + +---------+--------+ + documented as of this encounter Plan of Treatment Not on filedocumented as of this encounter Procedures + +--------+ + + + | Procedure Name | Priori | Date/Time | Associated Diagnosis | Comments | | | ty | | | | + +--------+ + + + | XR LUMBAR SPINE 2 OR | Routin | 06/19/2012 | Status post lumbar | Results for this | | 3 VW | e | 3:19 PM | spinal fusion | procedure are in the | | | | PST | | results section. | + +--------+ + + + documented in this encounter Results XR Lumbar Spine 2 or 3 Vw (06/19/2012 3:19 PM PST) + + | Specimen | + + | | + + + + + | Narrative | Performed At | + + + | [facility] | [place] | | Department [address] [place], [place] [address] | [facility] | | [ rep [address]] [ rep [facility] | | st zip] Signed | - IMAGING | | | | | Patient Name: MARY COLLADO Physician: | | | ARRE.01 : 1940 Age: 71 Sex: F Unit #: [id number] | | | Exam Date: 06/19/12 Location: [facility] | | | Report #: [id number] Page: | | | %(RAD)RES..mtdd.print.filter("pg") of %(RAD) | | | RES..mtdd.print.filter("tpg") | | | | | | Accession Number: [id number] | | | LUMBAR SPINE CLINICAL HISTORY: FOLLOW UP FUSION. | | | COMPARISON: 05/18/2012 FINDINGS: Posterior | | | pedicle screw and cate fixation is present across L4-5 and L5-S1 with | | | interbody spacers at each interspace. Fixation components are in | | | stable position. Vertebral alignment is normal and unchanged. 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 Heavy aortic calcification is also seen with | | | normal caliber to the aorta. IMPRESSION: 1. | | | STABLE L4-5, L5-S1 POSTERIOR PEDICLE SCREW AND INTERBODY FUSIONS. | | | Dictated Date/Time: 06/19/2012 15:19 Transcribed | | | Date/Time: 06/19/2012 15:31 Ecologist Technician: | | | <<Signature on File>> | | | | | | Johnathan Alford MD06/19/12 7730 <Electronically signed by | | | Johnathan Alford MD> Johnathan Alford MD 06/19/12 | | | 1519 Ecologist Technician: Lubna Mqvvscvtuuxve04/27/12 1531 | | | Jose Juan Bo MD | | + + + + + + + + | Performing | Address | City/State/Zipcode | Phone Number | | Organization | | | | + + + + + | [address] | [address] | [place] | [phone] | | [facility] | | [address] | | | - IMAGING | | | | + + + + + documented in this encounter Visit Diagnoses + + | Diagnosis | + + | Status post lumbar spinal fusion Arthrodesis status | + + documented in this encounter
--- OUTSIDE RECORDS SUMMARY | ~2019-12-13 | XMS | Encounter Summary ---
Demographics + + + | Address | [address] | | | [place] [address] | + + + | Home Phone | | + + + | Preferred Language | Unknown | + + + | Marital Status | | + + + | Baptism Affiliation | 1041 | + + + | Race | Unknown | + + + | Ethnic Group | Unknown | + + + Author + + + | Author | [facility] | | | and [place] | + + + | Organization | [facility] | | | and [...] [place], [place] | | | | | [address] | | + + + + + | Mercedes Lemus | ECON | [place] | | | | | [address] | | + + + + + Care Team Providers + +------+ + | Care Family Practice Medical Doctor Name | Role | Phone | + +------+ + | Martell Hilario NP | PCP | | + +------+ + Reason for Referral Diagnostic/Screening (Routine) +--------+--------+ + + + + | Status | Reason | Specialty | Diagnoses / | Referred By | Referred To | | | | | Procedures | Contact | Contact | +--------+--------+ + + + + | Closed | | Radiology | Diagnoses | | | | | | | Chronic | Radhadalaz, | | | | | | pain of | Ana, | | | | | | right knee | PA-C [address] | | | | | | Procedures | [address], | | | | | | [place] Asp | [address] | | | | | | and/or Inj | [place] | | | | | | Major Joint | [address] | | | | | | Right | Phone: | | | | | | | [phone] | | | | | | | Fax: | | | | | | | [phone] | | +--------+--------+ + + + + Reason for Visit Service/Procedure (Routine) +--------+--------+ + + + + | Status | Reason | Specialty | Diagnoses / | Referred By | Referred To | | | | | Procedures | Contact | Contact | +--------+--------+ + + + + | Closed | | Radiology | Diagnoses | | [facility] | | | | | Lumbar | [place], | [address] | | | | | radiculopath | Cecilio Ortiz MD | [place], | | | | | y | [address] | [place] | | | | | Procedures | ST [place] | [address] | | | | | OR INJECT | [place], [place] | Phone: | | | | | ANES/STEROID | [address] | [phone] | | | | | FORAMEN | Phone: | Fax: | | | | | LUMBAR/SACRA | [phone] | [phone] | | | | | [address] IMG | Fax: | | | | | | GUIDE ,1 | [phone] | | | | | | LEVEL OR | | | | | | | TRIAMCINOLON | | | | | | | E ACET INJ | | | | | | | NOS, 10 MG | | | | | | | Bilateral | | | | | | | L4-L5 TFESI | | | +--------+--------+ + + + + Encounter Details +--------+ + + + + | Date | Type | Department | Care Team | Description | +--------+ + + + + | 04/16/ | Hospital | [facility] | Angus, | Spinal stenosis of | | 2018 | Encounter | MED CTR XRAY [address] | DANIA Perez [address] | lumbar region with | | | | [place] | [address] | radiculopathy; S/P | | | | [place] [address] | [place] [address] | lumbar fusion; | | | | [phone] | [phone] | Chronic pain of | | | | | | right knee | | | | | [place] [employer] | | | | | | [place] | | +--------+ + + + + [...] this encounter Last Filed Vital Signs + +---------+ + + | Vital Sign | Reading | Time Taken | Comments | + +---------+ + + | Blood Pressure | 165/88 | 04/16/2018 2:00 PM | | | | | PDT | | + +---------+ + + | Pulse | 91 | 04/16/2018 2:00 PM | | | | | PDT | | + +---------+ + + | Temperature | - | - | | + +---------+ + + | Respiratory Rate | - | - | | + +---------+ + + | Oxygen Saturation | - | - | | + +---------+ + + | Inhaled Oxygen | - | - | | | Concentration | | | | + +---------+ + + | Weight | - | - | | + +---------+ + + | Height | - | - | | + +---------+ + + | Body Mass Index | - | - | | + +---------+ + + documented in this encounter Medications at Time of Discharge + + + +---------+--------+ + | Medication | Sig | Dispensed | Refills | Start | End Date | | | | | | Date | | + + + +---------+--------+ + | Cholecalciferol | Take 1 tablet by | | 0 | | | | (VITAMIN D-1000 MAX | mouth Daily. | | | | | | ST PO) | | | | | | + + + +---------+--------+ + | Coenzyme Q10 | Take 1 capsule by | | 0 | | | | (COQ10) 100 MG CAPS | mouth Daily. | | | | | + + + +---------+--------+ + | cyclobenzaprine | Take 5 mg by mouth | | 0 | | | | (FLEXERIL) 5 MG | as needed for Muscle | | | | | | tablet | spasms. | | | | | + + + +---------+--------+ + | | Take by mouth. | [...] | + + + +---------+--------+ + | meloxicam (MOBIC) | Take 15 [...] | + + + +---------+--------+ + | omeprazole | Take 20 mg by mouth | | 0 | | | | (PRILOSEC) 20 mg | every morning | | | | | | capsule | (before breakfast). | | | | | + + + +---------+--------+ + | | Take 1 tablet by [...] | + + + +---------+--------+ + | ROSUVASTATIN | Take by mouth. [...] as of this encounter Plan of Treatment + +---------+--------+ + + | Name | Type | Priori | Associated Diagnoses | Order Schedule | | | | ty | | | + +---------+--------+ + + | FL Asp and/or Inj | Imaging | Routin | Chronic pain of | 1 Occurrences | | Major Joint Right | | e | right knee | starting 04/16/2018 | | | | | | until 04/16/2018 | + +---------+--------+ + + documented as of this encounter Procedures + +--------+ + + + | Procedure Name | Priori | Date/Time | Associated Diagnosis | Comments | | | ty | | | | + +--------+ + + + | FL EPIDURAL STEROID | Routin | 04/16/2018 | Spinal stenosis of | Results for this | | INJECTION LUMBAR | e | 1:55 PM | lumbar region with | procedure are in the | | TRANSFORAMINAL | | PDT | radiculopathy S/P | results section. | | | | | lumbar fusion | | + +--------+ + + + documented in this encounter Results FL ELOISA Lumbar Transforaminal [...] Spinal stenosis of lumbar region with radiculopathy Spinal stenosis, lumbar region, | | without neurogenic claudication | + + | S/P lumbar fusion Arthrodesis status | + + | Chronic pain of right knee | + + documented in this encounter Administered Medications + +--------+ +-------+------+------+ | Medication Order | MAR | Action | Dose | Rate | Site | | | Action | Date | | | | + +--------+ +-------+------+------+ | dexamethasone (PF) 10 mg/mL | Given | 04/16/20 | 10 mg | | | | injection 15 mg 15 mg, Other, | | 18 2:00 | | | | | ONCE, Mon04/16/18 at 1400, For 1 | | PM PDT | | | | | dose | | | | | | + +--------+ +-------+------+------+ +---+---+ | | | +---+---+ + +-------+ +-------+---+---+ | iohexol (OMNIPAQUE 300) 300 | Given | 04/16/20 | 4 mLs | | | | mg/mL injection 4 mL 4 mL, | | 18 2:06 | | | | | Other, ONCE, Mon04/16/18 at 1400, | | PM PDT | | | | | For 1 dose | | | | | | + +-------+ +-------+---+---+ +---+---+ | | | +---+---+ + +-------+ +-------+---+---+ | lidocaine (PF) 1% injection 2 | Given | 04/16/20 | 2 mLs | | | | mL 2 mL, Other, ONCE, Mon | | 18 2:06 | | | | | 04/16/18 at 1400, For 1 dose | | PM PDT | | | | + +-------+ +-------+---+---+ +---+---+ | | | +---+---+ + +-------+ +-------+---+ + | lidocaine buffered 1.3% | Given | 04/16/20 | 6 mLs | | Other | | injection 6 mL 6 mL, | | 18 2:06 | | | (Comment | | Intradermal, ONCE, 04/16/18 at | | PM PDT | | | ) | | 1400, For 1 dose | | | | | | + +-------+ +-------+---+ + +---+---+ | | | +---+---+ + +-------+ +-------+---+---+ | triamcinolone acetonide | Given | 04/16/20 | 40 mg | | | | (KENALOG-40) 40 mg/mL injection | | 18 2:06 | | | | | 40 mg 40 mg, Intra-articular, | | PM PDT | | | | | ONCE, 04/16/18 at 1430, For 1 | | | | | | | dose, Shake well. Not for IV | | | | | | | use., | | | | | | + +-------+ +-------+---+---+ +---+---+ | | | +---+---+ documented in this encounter"
--- OUTSIDE RECORDS SUMMARY | ~2019-12-13 | XMS | Encounter Summary ---
Demographics + + + | Address | [address] | | | [place] [address] | + + + | Home Phone | | + + + | Preferred Language | Unknown | + + + | Marital Status | | + + + | Taoism Affiliation | 1041 | + + + | Race | Unknown | + + + | Ethnic Group | Unknown | + + + Author + + + | Author | [facility] | | | and [place] | + + + | Organization | [facility] | | | [...] [place], [place] | | | | | [address] | | + + + + + | Mercedes Lemus | ECON | [place] | | | | | [address] | | + + + + + Care Team Providers + +------+ + | Care Title One Teacher Name | Role | Phone | + +------+ + | Hector Mccoy DO | PCP | | + +------+ + Reason for Visit + + + | Reason | Comments | + + + | Back Pain | 2 Month Post Op | + + + Encounter Details +--------+---------+ + + + | Date | Type | Department | Care Team | Description | +--------+---------+ + + + | 06/19/ | Office | [facility] | Shen Guston | Scoliosis of lumbar | | 2011 | Visit | NEUROSURGERY [address] | [address] | spine (Primary Dx); | | | | [address] | [address] | Spondylolisthesis of | | | | [place], [place] | [place] [address] | lumbar region; | | | | [address] | [phone] | Degenerative disc | | | | [phone] | | disease, lumbar; | | | | | | Neurogenic | | | | | | claudication due to | | | | | | lumbar spinal | | | | | | stenosis; Spinal | | | | | | stenosis | +--------+---------+ + + + Social History + +-------+ [...] + + + | Blood Pressure | 130/88 | 06/19/2012 1:48 PM | | | | | PST | | + + + + + | Pulse | 95 | 06/19/2012 1:48 PM | | | | | PST | | + + + + + | Temperature | - | - | | + + + + + | Respiratory Rate | 18 | 06/19/2012 1:48 PM | | | | | PST | | + + + + + | Oxygen Saturation | - | - | | + + + + + | Inhaled Oxygen | - | - | | | Concentration | | | | + + + + + | Weight | 87.1 kg (192 lb) | 06/19/2012 1:48 PM | | | | | PST | | + + + + + | Height | 162.6 cm (5' 4") | 06/19/2012 1:48 PM | | | | | PST | | + + + + + | Body Mass Index | 32.96 | 06/19/2012 1:48 PM | | | | | PST | | + + + + + documented in this encounter Patient Instructions Patient Instructions Nish Gotti PA-C - 06/19/2012 2:11 PM PSTWean your brace. Continue with your walking. Follow up with your primary Dr and see us in about 1 year with Xrays. documented in this encounter Progress Notes Nish Gotti PA-C - 06/19/2012 3:11 PM PSTFormatting of this note might be differ ent from the original. MARIJA Brooks [address] [place] [address], [address] [place], [place] [id number] FAX: NEUROSURGERY SURGICAL FOLLOW-UP CHIEF COMPLAINT: Chief Complaint Patient presents with Back Pain 2 Month Post Op HISTORY OF PRESENT ILLNESS: The patient is a 71 y.o. female that had a lateral anterior in terbody fusion of L4-5 L5-S1. Shows had posterior pedicle screws with onlay fusion. She is here for her 6 week followup. The patient feels like she is doing very well prior to her s urgery she has significant problems with balance issue leg weakness with walking and inabili ty to stand because of back discomfort. All of these symptoms have resolved since having he r surgery. She is quite happy with the way she feels. She has been using her bone stimulat or has finished with physical therapy. She has been walking up to a mile a day. She has al ready been weaning herself off of her brace and only uses it when she is out of the house. CURRENT MEDICATIONS: Current Outpatient Prescriptions Medication Sig Dispense Refill zolpidem (AMBIEN) 10 mg tablet Take 10 mg by mouth nightly as needed. PARoxetine (PAXIL) 20 mg tablet Take 20 mg by mouth every morning. oxyCODONE-acetaminophen (PERCOCET) 7.5-325 mg per tablet Take 1-2 tablets by mouth ever y 4 hours as needed. metFORMIN (GLUCOPHAGE) 500 mg tablet Take 500 mg by mouth daily (with breakfast). lovastatin (MEVACOR) 20 mg tablet Take 20 mg by mouth Daily (with dinner). lisinopril (PRINIVIL, ZESTRIL) 20 mg tablet Take 20 mg by mouth Daily. cyclobenzaprine (FLEXERIL) 10 mg tablet Take 10 mg by mouth 3 times daily as needed. ALLERGIES: No Known Allergies SOCIAL HISTORY: The patient does not have a smoking history on file. She does not have any smokeless tobac co history on file. INTERIM PHYSICAL EXAMINATION: Blood pressure 130/88, pulse 95, resp. rate 18, height 1.626 m (5' 4"), weight 87.091 kg (1 92 lb). Body mass index is 32.96 kg/(m^2). GENERAL: Mary Collado is in no acute distress with unlabored respirations. SPINE: The patient s incisions are healing well without drainage, significant erythema, o r discharge EXTREMITIES: No lower extremity edema. NEUROLOGICAL EXAMINATION: MENTAL STATUS: The patient is awake, alert, and oriented. She follows simple and complex commands MOTOR EXAM: Motor strength is improved from the preoperative exam with now 5 over 5 strengt h. SENSORY EXAM: The sensory examination improved from the preoperative exam. REFLEXES: Reflexes are unchanged from her preoperative history and physical.with patellar r eflexes being absent RADIOGRAPHIC REVIEW: The patient s postoperative x-rays show stable instrumentation and alignment and were rev iewed with the patient today. There have been no interval changes since the immediate posto perative films. Complete fusion has not yet occurred, but this is normal and would not be e xpected at this time. ASSESSMENT: S/P lateral anterior interbody fusion with posterior pedicle screw fixation L4-5 L5-S1 and significant improvement of neurologic symptoms. Encounter Diagnoses Name Primary? Scoliosis of lumbar spine Yes Spondylolisthesis of lumbar region Degenerative disc disease, lumbar Neurogenic claudication due to lumbar spinal stenosis Spinal stenosis History reviewed. No pertinent past medical history. PLAN: Overall, the patient is doing well I increased the patient s activities slowly now allowing 15 pound lifting and also will b egin the process of brace weaning. I would like the patient to advance slowly with this pro cess and discussed this at length during today's visit. I would also like the patient to co ntinue with postoperative rehabilitation and to advance with therapy as tolerated. I am hoping to see improvement over the coming weeks to months. Best the patient to continue following with her primary care provider in to see us in about one year with x-rays but have encouraged her to call with any problems questions or concern s or any changes in her condition. ELECTRONICALLY SIGNED BY: MARIJA Brooks, 06/19/2012 15:11 documented in this encounter Plan of Treatment Not on filedocumented as of this encounter Visit Diagnoses + + | Diagnosis | + + | Scoliosis of lumbar spine - Primary Scoliosis (and kyphoscoliosis), idiopathic | + + | Spondylolisthesis of lumbar region Acquired spondylolisthesis | + + | Degenerative disc disease, lumbar Degeneration of lumbar or lumbosacral | | intervertebral disc | + + | Neurogenic claudication due to lumbar spinal stenosis Spinal stenosis, lumbar region, | | with neurogenic claudication | + + | Spinal stenosis Spinal stenosis, unspecified region other than cervical | + + documented in this encounter
--- OUTSIDE RECORDS SUMMARY | ~2019-12-13 | XMS | Encounter Summary ---
Demographics + + + | Address | [address] | | | [place] [address] | + + + | Home Phone | | + + + | Preferred Language | Unknown | + + + | Marital Status | | + + + | Pentecostalism Affiliation | 1041 | + + + | Race | Unknown | + + + | Ethnic Group | Unknown | + + + Author + + + | Author | [facility] | | | and [place] | + + + | Organization | [facility] | | | [...] [place], [place] | | | | | [address] | | + + + + + | Mercedes Lemus | ECON | [place] | | | | | [address] | | + + + + + Care Team Providers + +------+ + | Care Inside Parts Sales Name | Role | Phone | + +------+ + | Martell Hilario NP | PCP | | + +------+ + Encounter Details +--------+ + + + + | Date | Type | Department | Care Team | Description | +--------+ + + + + | 03/22/ | Imaging | [facility] | Provider, | | | 2019 | Exam | [facility] | MD Kristin [address] | | | | | IMAGING [address] | [address] | | | | | [address] | [place] [address] | | | | | [place] [address] | | | | | | [phone] | | | +--------+ + + + [...] | + +--------+ + + + | CT CERVICAL SPINE WO | Routin | 03/21/2019 | | Results for this | | CONTRAST | e | 12:00 AM | | procedure are in the | | | | PDT | | results section. | + +--------+ + + + documented in this encounter Results CT Cervical Spine wo Contrast (03/21/2019 12:00 AM PDT) + + | Specimen | + + | | + + + + + | Narrative | Performed At | + + + | External films for comparison only | [facility] | | | | | No results will be in the chart. | | + + + + +---------+ + + | Performing | Address | City/State/Zipcode | Phone Number | | Organization | | | | + +---------+ + + | [facility] | | | | + +---------+ + + documented in this encounter Visit Diagnoses Not on filedocumented in this encounter"
--- OUTSIDE RECORDS SUMMARY | ~2019-12-13 | XMS | Clinical Summary ---
Demographics + + + | Address | [address] | | | [place] [address] | + + + | Home Phone | | + + + | Preferred Language | Unknown | + + + | Marital Status | | + + + | Druze Affiliation | 1041 | + + + | Race | Unknown | + + + | Ethnic Group | Unknown | + + + Author + + + | Author | [facility] | | | and [place] | + + + | Organization | [facility] | | | and [...] [place], [place] | | | | | [address] | | + + + + + | Mercedes Lemus | ECON | [place] | | | | | [address] | | + + + + + Care Team Providers + +------+ + | Care Chemical Processing Supervisor Name | Role | Phone | + +------+ + | Martell Hilario NP | PCP | | + +------+ + Allergies + + + + + + | Active Allergy | Reactions | Severity | Noted | Comments | | | | | Date | | + + + + + + | Hydromorphone | Nausea And Vomiting | Low | 12/09/19 | | | | | | 15 | | + + + + + + Medications + + + +---------+------+------+-------+ | Medication | Sig | Dispensed | Refills | Star | End | Statu | | | | | | t | Date | s | | | | | | Date | | | + + + +---------+------+------+-------+ | zolpidem (AMBIEN) | Take 5 mg by mouth | | 0 | | | Activ | | 10 mg tablet | nightly as needed. | | | | | e | + + + +---------+------+------+-------+ | PARoxetine (PAXIL) | Take 20 mg by mouth | | 0 | | | Activ | | 20 mg tablet | nightly. | | | | | e | + + + +---------+------+------+-------+ | metFORMIN | Take 500 mg by mouth | | 0 | | | Activ | | (GLUCOPHAGE) 500 mg | daily (with | | | | | e | | tablet | breakfast). | | | | | | + + + +---------+------+------+-------+ | lisinopril | Take 20 mg by mouth | | 0 | | | Activ | | (PRINIVIL, ZESTRIL) | Daily. | | | | | e | | 20 mg tablet | | | | | | | + + + +---------+------+------+-------+ | | Take by mouth. | | 0 | | | Activ | | Hydrocodone-Acetamin | | | | | | e | | ophen (NORCO PO) | | | | | | | + + + +---------+------+------+-------+ | | Take 1 tablet by | | 0 | | | Activ | | oxyCODONE-acetaminop | mouth every 4 hours | | | | | e | | hen (PERCOCET) 5-325 | as needed for Pain. | | | | | | | mg per tablet | | | | | | | + + + +---------+------+------+-------+ | meloxicam (MOBIC) | Take 15 mg by mouth | | 0 | | | Activ | | 15 mg tablet | Daily. | | | | | e | + + + +---------+------+------+-------+ | omeprazole | Take 20 mg by mouth | | 0 | | | Activ | | (PRILOSEC) 20 mg | every morning | | | | | e | | capsule | (before breakfast). | | | | | | + + + +---------+------+------+-------+ | cyclobenzaprine | Take 5 mg by mouth | | 0 | | | Activ | | (FLEXERIL) 5 MG | as needed for Muscle | | | | | e | | tablet | spasms. | | | | | | + + + +---------+------+------+-------+ | Coenzyme Q10 | Take 1 capsule by | | 0 | | | Activ | | (COQ10) 100 MG CAPS | mouth Daily. | | | | | e | + + + +---------+------+------+-------+ | Cholecalciferol | Take 1 tablet by | | 0 | | | Activ | | (VITAMIN D-1000 MAX | mouth Daily. | | | | | e | | ST PO) | | | | | | | + + + +---------+------+------+-------+ | ROSUVASTATIN | Take by mouth. | | 0 | | | Activ | | CALCIUM PO | Patient takes | | | | | e | | | medication on | | | | | | | | Monday, Monday, | | | | | | | | and Monday | | | | | | + + + +---------+------+------+-------+ | | Take 1 tablet by | | 0 | 09/21 | | Activ | | acetaminophen-codein | mouth every 6 (six) | | | 08/12 | | e | | e (TYLENOL #3) | hours as needed for | | | 19 | | | | 300-30 mg per tablet | Pain. Do not take | | | | | | | | Tylenol with this | | | | | | | | medication. It has | | | | | | | | Tylenol in it. | | | | | | + + + +---------+------+------+-------+ Active Problems + + + | Problem | Noted Date | + + + | Spinal stenosis of lumbar region with radiculopathy | 10/14/2016 | + + + | Lumbar radiculopathy | 10/11/2016 | + + + | S/P lumbar fusion | 10/11/2016 | + + + | Osteoarthritis of spine with radiculopathy, lumbar region | 10/11/2016 | + + + | Essential hypertension | 12/09/2014 | + + + | Chest pain, unspecified | 12/09/2014 | + + + | Status post lumbar spinal fusion | 11/05/2012 | + + + Family History + + +------+ + | Medical History | Relation | Name | Comments | + + +------+ + | No known problems | Child | | | + + +------+ + | No known problems | Child | | | + + +------+ + | Colon cancer | Father | | | + + +------+ + | Gout | Father | | | + + +------+ + | Cancer | Maternal | | | | | Aunt | | | + + +------+ + | Stroke | Maternal | | | | | Grandfath | | | | | er | | | + + +------+ + | Cancer | Maternal | | | | | Grandmoth | | | | | er | | | + + +------+ + | No known problems | Maternal | | | | | Uncle | | | + + +------+ + | Alcohol abuse | Mother | | | + + +------+ + | Cancer | Mother | | | + + +------+ + | No known problems | Paternal | | | | | Aunt | | | + + +------+ + | Colon cancer | Paternal | | | | | Grandfath | | | | | er | | | + + +------+ + | No known problems | Paternal | | | | | Grandmoth | | | | | er | | | + + +------+ + | No known problems | Paternal | | | | | Uncle | | | + + +------+ + | Breast cancer | Sister | | | + + +------+ + | Cancer | Sister | | Bladder | + + +------+ + | Cancer | Sister | | Uterine | + + +------+ + + +------+--------+ + | Relation | Name | Status | Comments | + +------+--------+ + | Child | | Alive | | + +------+--------+ + | Child | | Alive | | + +------+--------+ + | Child | | | | + +------+--------+ + | Child | | | | + +------+--------+ + | Father | | Other | Status Unknown | + +------+--------+ + | Maternal Aunt | | Other | | + +------+--------+ + | Maternal Aunt | | | | + +------+--------+ + | Maternal Grandfather | | Other | Status Unknown | + +------+--------+ + | Maternal Grandmother | | Other | Status Unknown | + +------+--------+ + | Maternal Uncle | | Other | | + +------+--------+ + | Maternal Uncle | | | | + +------+--------+ + | Mother | | Other | Status Unknown | + +------+--------+ + | Paternal Aunt | | Other | Status Unknown | + +------+--------+ + | Paternal Aunt | | | | + +------+--------+ + | Paternal Grandfather | | Other | Status Unknown | + +------+--------+ + | Paternal Grandmother | | Other | Status Unknown | + +------+--------+ + | Paternal Uncle | | Other | Status Unknown | + +------+--------+ + | Paternal Uncle | | | | + +------+--------+ + | Sister | | Other | Status Unknown | + +------+--------+ + | Sister | | | | + +------+--------+ + | Sister | | | | + +------+--------+ + | Sister | | | | + +------+--------+ + Social History + + + +--------+ [...] recent travel history available. | + + Last Filed Vital Signs + + + [...] Height | 162.6 cm (5' 4") | 04/11/2018 10:50 AM | | | | | PDT | | + + + + + | Body Mass Index | 33.3 | 04/11/2018 10:50 AM | | | | | PDT | | + + + + + Plan of Treatment + + + + + | Health Maintenance | Due Date | Last Done | Comments | + + + + + | Vaccine: | | | | | Dtap/Tdap/Td (1 - | 3 | | | | Tdap) | | | | + + + + + | Vaccine: Zoster (1 | | | | | of 2) | 2 | | | + + + + + | Breast Cancer | | | | | Screening | 7 | | | + + + + + | Vaccine: | | | | | Pneumococcal 65+ (1 | 7 | | | | of 2 - PCV13) | | | | + + + + + | Adult Annual | | | | | Wellness Visit | 5 | | | + + + + + | Vaccine: Influenza | Completed | 06/05/2019, 06/13/2018, | | | | | 03/15/2017, Additional history | | | | | exists | | + + + + + Results Not on filefrom Last 3 Months Insurance + +--------+ +--------+ +---------+--------+ | Payer | Benefi | Subscriber | Effect | Phone | Address | Type | | | t Plan | ID | danial | | | | | | / | | Dates | | | | | | Group | | | | | | + +--------+ +--------+ +---------+--------+ | MEDICARE | MEDICA | [id number] | | [phone] | | Medica | | | RE | | 007-Pr | 5 | | re | | | PART A | | esent | | | | | | AND B | | | | | | + +--------+ +--------+ +---------+--------+ | MEDICARE | MEDICA | [id number] | | [phone] | | Medica | | | RE | | 012-Pr | 5 | | re | | | PART A | | esent | | | | | | AND B | | | | | | + +--------+ +--------+ +---------+--------+ + +--------+ +--------+ + + | Guarantor Name | Accoun | Relation to | Date | Phone | Billing Address | | | t Type | Patient | of | | | | | | | | | | + +--------+ +--------+ + + | Mary Collado | Person | Self [birth year] | [address] | | | al/Fam [birth year] | 1940 | [phone] | [place], [place] | | | [place]na | | | 1 (Home) | [address] | + +--------+ +--------+ + + | Mary Collado | Person | Self [birth year] | [address] | | | al/Fam | | 1940 | [phone] | [place], [place] | | | [place] | | | 1 (Home) | [address] | + +--------+ +--------+ + + Advance Directives + + + + + | Type | Date Recorded | Patient | Explanation | | | | 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
--- OUTSIDE RECORDS SUMMARY | ~2019-12-13 | XMS | Encounter Summary ---
Demographics + + + | Address | [address] | | | [place] [address] | + + + | Home Phone | | + + + | Preferred Language | Unknown | + + + | Marital Status | | + + + | Cheondoism Affiliation | 1041 | + + + | Race | Unknown | + + + | Ethnic Group | Unknown | + + + Author + + + | Author | [facility] | | | and [place] | + + + | Organization | [facility] | | [...] [place], [place] | | | | | [address] | | + + + + + | Mercedes Lemus | ECON | [place] | | | | | [address] | | + + + + + Care Team Providers + +------+ + | Care Waiter/Waitress Third Class Name | Role | Phone | + +------+ + | Hector Mccoy DO | PCP | | + +------+ + Reason for Visit +--------+ + | Reason | Comments | +--------+ + | Other | One year x-ray results | +--------+ + Encounter Details +--------+ + + + + | Date | Type | Department | Care Team | Description | +--------+ + + + + | 06/07/ | Telephone | [facility] | Jose Juan Bo | Other (One year | | 2012 | | [address] | MD [address] [place] | x-ray results ) | | | | [address] | [place], [place] | | | | | [place], [place] | [address] | | | | | [address] | [phone] | | | | | [phone] | | | +--------+ + + + + Social History + +-------+ +--------+ + | Tobacco Use | Types | Packs/Day | Years | Date | | | | | Used | | + +-------+ +--------+ + | Former Smoker | | | | Quit: 11/05/1989 | + +-------+ +--------+ + + +---+---+---+ | Smokeless Tobacco: | | | | | Never Used | | | | + +---+---+---+ + + +---------+ + | Alcohol Use | Drinks/Week | oz/Week | Comments | + + +---------+ + | Yes | | | Rarely | + + +---------+ + + + [...]
--- OUTSIDE RECORDS SUMMARY | ~2019-12-13 | XMS | Encounter Summary ---
Demographics + + + | Address | [address] | | | [place] [address] | + + + | Home Phone | | + + + | Preferred Language | Unknown | + + + | Marital Status | | + + + | Druze Affiliation | 1041 | + + + | Race | Unknown | + + + | Ethnic Group | Unknown | + + + Author + + + | Author | [facility] | | | and [place] | + + + | Organization | [facility] | | | [...] [place], [place] | | | | | [address] | | + + + + + | Mercedes Lemus | ECON | [place] | | | | | [address] | | + + + + + Care Team Providers + +------+ + | Care Padded Box Sewer Name | Role | Phone | + +------+ + | Hector Mccoy DO | PCP | | + +------+ + Reason for Visit + + + | Reason | Comments | + + + | Back Pain | low back radiating into left leg | + + + Encounter Details +--------+---------+ + + + | Date | Type | Department | Care Team | Description | +--------+---------+ + + + | 03/14/ | Office | [facility] | Cecilio Ram | Lumbar radiculopathy | | 2017 | Visit | PHYSIATRY [address] | MD Diana [address] | (Primary Dx); | | | | [address] | [facility] [place] [facility] [place] | Status post lumbar | | | | [place] | [id number] | spinal fusion; | | | | [address] | | Spinal stenosis of | | | | [phone] | | lumbar region with | | | | | | radiculopathy | +--------+---------+ + + + Social History + + [...] + + + | Blood Pressure | 126/81 | 03/14/2017 10:57 AM | | | | | PDT | | + + + + + | Pulse | 87 | 03/14/2017 10:57 AM | | | | | PDT | | + + + + + | Temperature | - | - | | + + + + + | Respiratory Rate | - | - | | + + + + + | Oxygen Saturation | - | - | | + + + + + | Inhaled Oxygen | - | - | | | Concentration | | | | + + + + + | Weight | 87.1 kg (192 lb) | 03/14/2017 10:57 AM | | | | | PDT | | + + + + + | Height | 162.6 cm (5' 4") | 03/14/2017 10:57 AM | | | | | PDT | | + + + + + | Body Mass Index | 32.96 | 03/14/2017 10:57 AM | | | | | PDT | | + + + + + documented in this encounter Patient Instructions Patient Instructions Jessica Stewart Aide - 03/14/2017 10:50 AM PDT Follow-up at the hospital thirty minutes before your scheduled procedure to allow for time to check in. You may eat and drink as usual on the day of the procedure. If you are scheduled for an epidural injection do not take any blood thinning medications f or at least 5-7 days prior to your procedure unless you have been instructed by another phys ician not to discontinue blood thinning medications. If you are having a procedure other than an epidural injection (i.e. facet injection, media l branch block, SI joint injection or other joint injection) it is not absolutely necessary to discontinue blood thinning medications but doing so will decrease the risk of bruising or bleeding. If you have had a prior stroke, DVT or PE or if you are taking blood thinning medication be cause you have atrial fibrillation, a prosthetic cardiac valve replacement or heart stenting do not stop taking your blood thinning medications unless you have permission from your car diologist or primary care provider. All other medications should be taken as usual on the day of the procedure. Common blood thinning medications include: Aspirin (a baby aspirin is o.k.) Ibuprofen (Advil or Motrin) Naproxen (Aleve) Nabumetone (Relafen) Clopidogrel (Plavix) Dipyridamole/ASA (Aggrenox) Warfarin (Coumadin) Dabigatran (Pradaxa) Rivaroxaban (Xarelto) There are many others. If you have questions about your medications and whether or not you should stop any medications please contact our office. If you are having an epidural injection or if you take any medication for relaxation/sedati on on the day of the procedure you must provide a backhaul driver to take you home. For all procedur es it is recommended that someone else drive you home. documented in this encounter Progress Notes Cecilio Ram MD - 03/14/2017 10:50 AM PDT Cecilio Ram MD [address] [facility], [address] [place], [place] [address] FAX: PHYSICAL MEDICINE AND REHABILITATION H&P CHIEF COMPLAINT: Chief Complaint Patient presents with Back Pain low back radiating into left leg HISTORY OF PRESENT ILLNESS: The patient is a 76 y.o. female being seen today in follow up for the complaint of low back pain that began in 1984 when the patient reports that she was jumping into a pool and twisted wrong when she jumped in noticing immediate pain at that rubio e. The symptoms have been gradually worsening. The patient has a history of a prior lumbar fusion at L4-L5, L5-S1 which was performed by Dr. Jose Juan Simmons on May 082011 . The patient reports 1-2 years of relief following this surgery. At the end of the patient' s last visit I recommended she have a new MRI done. That MRI did show spinal stenosis above her fusion. The results were discussed with the patient by phone and an epidural steroid in jection was recommended. However the patient was already scheduled to have a total knee rep lacement and she did not want to do anything that might postpone the surgery so an injection was never performed. The patient did have the surgery, a left knee replacement in November 2016 . She rates the pain as moderate. The symptoms are continuous. She describes the pain as ac bruna, sharp and throbbing. The patient describes leg symptoms that occur on the left side. The leg symptoms account f or greater than or equal to 50% of her symptoms. The leg symptoms are persistent and the sy mptoms travel from the low back to below the knee. The patient does report numbness in the left leg. She does report weakness of the left leg. The patient does not report any change in bowel or bladder function or saddle anesthesia re cently. Her symptoms improve with rest. Her symptoms worsen with standing,walking for long distances and prolonged sitting. She has tried PT, NSAIDS and Braces. The patient had prior lumbar surgery with Dr. Jose Juan Bo as noted above in HPI. CURRENT MEDICATIONS: Current Outpatient Prescriptions Medication Sig Dispense Refill cyclobenzaprine (FLEXERIL) 5 MG tablet Take 5 mg by mouth as needed for Muscle spasms. Hydrocodone-Acetaminophen (NORCO PO) Take by mouth. lisinopril (PRINIVIL, ZESTRIL) 20 mg tablet Take 20 mg by mouth Daily. meloxicam (MOBIC) 15 mg tablet Take 15 mg by mouth Daily. metFORMIN (GLUCOPHAGE) 500 mg tablet Take 500 mg by mouth daily (with breakfast). omeprazole (PRILOSEC) 20 mg capsule Take 20 mg by mouth every morning (before breakfast ). oxyCODONE-acetaminophen (PERCOCET) 5-325 mg per tablet Take 1 tablet by mouth every 4 h ours as needed for Pain. PARoxetine (PAXIL) 20 mg tablet Take 20 mg by mouth nightly. zolpidem (AMBIEN) 10 mg tablet Take 5 mg by mouth nightly as needed. No current facility-administered medications for this visit. ALLERGIES: No Known Allergies REVIEW OF SYSTEMS: GENERALLY: No fever, no night sweats, no anemia, no fatigue, no recent profound weight ch anges. EYES: No eye problems, no use of corrective lenses, no eye injury, no double vision, no bl indness. EARS, NOSE, AND THROAT: No changes in taste or smell, no hearing difficulty, no ringing in the ears, no ear drainage, no dizziness, no voice changes, no difficulty swallowing, no sig nificant snoring, no sleep apnea, no sinus problems, no major dental work. NEUROLOGICALLY:The patient has no numbness/pain of arms, + numbness/pain of legs, no awake with numbness/pain, + weakness, no muscle aching, no coordination difficulty, no change in w alk, no head injury, no neck injury, + back injury, + pain in neck, + pain in back, no strok e, no fainting spells, no loss of consciousness, no tremor/shaking, no seizures, + headaches , no migraine, no memory loss, no speech difficulty, no confusion and no numbness of face. PSYCHIATRIC: + depression, + sleep disorders, no anxiety, no bipolar disorder, no psychoti c episodes. CARDIOVASCULAR: No heart attacks, no heart murmur, no heart fluttering, no chest pain, no ankle swelling. LUNG DISEASE: No shortness of breath, no cough, no tuberculosis, no bloody cough, no asth ma, no emphysema/COPD. GASTROINTESTINAL: No bowel disease, no nausea or vomiting, no rectal bleeding, no constipa tion, no stool incontinence, no liver disease, no gallbladder disease, no abdominal pain, no ulcers. KIDNEY DISEASE: No urinary frequency, no painful or difficult urination, no incontinence. ENDOCRINE: No diabetes, no thyroid disease, no osteopenia or osteoporosis, no breast drain age. SKIN: No breast lumps, no skin changes, no rashes, no itches. HEMATOLOGIC/LYMPHATIC: No enlarged lymph nodes, no easy or unusual bleeding, no personal h istory of cancer. RHEUMATOLOGIC: + joint arthritis, no rheumatoid arthritis. PHYSICAL EXAMINATION: Blood pressure 126/81, pulse 87, height 1.626 m (5' 4"), weight 87.1 kg (192 lb). Body mass index is 32.96 kg/m. GENERAL: The patient is well developed and well nourished. She does not appear uncomfortab le when seated. HEENT: HEAD/FACE: EYES: Normocephalic and atraumatic. There are no areas of recent trauma. Normal sclerae without icterus. SKIN Limited skin exam shows no significant rashes or lesions. There are scars in the lumb ar region. CHEST: The patient is in no acute respiratory distress with unlabored respirations. HEART: There is not lower extremity edema. ABDOMEN: The patient is overweight. NEUROLOGIC: The patient is awake, alert, and oriented to time, place, person. She follows simple and complex commands. Her speech is fluent. She comprehends speech well. She has no apparent deficits with short or usp memory. She has appropriate fund of knowledge Cranial nerves 2-12 appear grossly intact. Sensory exam does not show diminished sensation to light touch in the upper and lower extre mities. REFLEX: RIGHT LEFT PATELLAR 1+ 1+ ACHILLES 1+ 1+ PLANTAR Downgoing Downgoing MUSCULOSKELETAL There is no major palpable deformity of the spine. Straight leg raise and slump-sit are positive on the left. Edy's maneuver and impingem ent testing were negative for any groin pain. There was no tenderness to palpation over th e greater trochanters or sacral sulci. The patient localized the majority of the pain to th e left lower lumbar region and radiating down the left leg in an L5 distribution. Lumbar fa cet loading was positive. She also had increased pain with leaning backwards. Strength testi ng showed 5/5 strength throughout the lower extremities. The patient was able to heel and to e walk without difficulty. There was no redness, effusion, warmth or joint line tenderness in the knees or ankles. RADIOGRAPHIC REVIEW: The patient's imaging was reviewed with her an her daughter in detail. An MRI of the lumba r spine from 10/25/2016 shows evidence of the lumbar fusion from L4-S1 and central canal steno sis above that at L3-L4. IMPRESSION: Encounter Diagnoses Name Primary? Lumbar radiculopathy Yes Status post lumbar spinal fusion Spinal stenosis of lumbar region with radiculopathy PLAN: 1. Previously it has been recommended the patient have a trial of lumbar epidural steroid injection below the level of greatest stenosis. Her symptoms are primarily on the left side and therefore I did offer a left L4 transforaminal epidural steroid injection. The patient was interested in pursuing that option and so be scheduled for the near future. 2. The patient has several medications for pain already. I did not make any changes in he r medications today. I, Dr. Cecilio Ram, personally performed the services described in this documentatio n, as scribed by SANCHEZ Edgar in my presence, and it is both accurate and complete. ELECTRONICALLY EDITED AND SIGNED BY: Cecilio Ram MD, 03/15/2017 documented in this encounter Plan of Treatment Not on filedocumented as of this encounter Results [facility] ELOISA Lumbar Transforaminal (04/05/2017 4:02 PM PDT) + + | Specimen | + + | | + + + + + | Narrative | Performed At | + + + | 04/05/2017 | [facility] | | Transforaminal Epidural Steroid InjectionDiagnosis: Lumbar | [facility] | | radiculopathyICD-10 Code M54.16 Mary Collado presents to the [facility] | | fluoroscopy suite for a fluoroscopically-guided left L4-L5 | - IMAGING | | transforaminal epidural steroid injection as part of conservative | | | management for chronic pain with lumbar radiculopathy and degenerative | | | disk disease. After informed consent was obtained, the patient lay | | | in the prone position on the fluoroscopy table. The area was | | | identified under fluoroscopic guidance. The area was prepped and | | | draped in sterile fashion. A 25-gauge, 1.5-inch needle was inserted | | | into this region and approximately 3 mL of buffered 1% lidocaine was | | | infused. Then, a 22-gauge spinal needle was inserted into the | | | posterior superior transforaminal space and advanced into the epidural | | | space under fluoroscopic guidance. Confirmation into the epidural | | | space was obtained with infusion of approximately 1 mL of Omnipaque | | | contrast which showed epidural flow as well as nerve sheath flow. | | | Then, a combination of 1.5 mL of 1% lidocaine and 1 mL of 10 | | | mg/mL Dexamethasone was infused. The patient tolerated the procedure | | | well without complications. Pre- and post-procedure blood pressures | | | were stable. The patient was given verbal as well as written | | | follow-up instructions. Prior to the start of the procedure, the | | | following were performed and/or verified, including correct patient | | | identity, correct site/side marked and visible, agreement on the | | | procedure to be done, correct patient positioning and an accurate | | | procedure consent form. Any safety precautions based on clinical | | | history and/or medication use have been addressed. I personally | | | performed the procedure above. Estimated blood loss: | | | MinimalComplications: NoneFindings: As expectedAnesthesia: Local | | | 1% Lidocaine | | |I personally performed the procedure above. | | | | | |Estimated blood loss: Minimal | | |Complications: None | | |Findings: As expected | | |Anesthesia: Local 1% Lidocaine | | | | | + + + + + + + + | Performing | Address | City/State/Zipcode | Phone Number | | Organization | | | | + + + + + | [facility] | [address] | [place] | [phone] | | [facility] | | [id number] | | | - IMAGING | | | | + + + + + documented in this encounter Visit Diagnoses + + | Diagnosis | + + | Lumbar radiculopathy - Primary Thoracic or lumbosacral neuritis or radiculitis, | | unspecified | + + | Status post lumbar spinal fusion Arthrodesis status | + + | Spinal stenosis of lumbar region with radiculopathy Spinal stenosis, lumbar region, | | without neurogenic claudication | + + documented in this encounter
--- OUTSIDE RECORDS SUMMARY | ~2019-12-13 | XMS | Encounter Summary ---
Demographics + + + | Address | [address] | | | [place] [address] | + + + | Home Phone | | + + + | Preferred Language | Unknown | + + + | Marital Status | | + + + | Bahai Affiliation | 1041 | + + + | Race | Unknown | + + + | Ethnic Group | Unknown | + + + Author + + + | Author | [facility] | | | and [place] | + + + | Organization | [facility] | | | and [place] | + + + | Address | Unknown | + + + | Phone | Unavailable | + + + Support + + + + + | Name | Relationship | Address | Phone | + + + + + | Law Collado | ECON | [address] | | | | | [place], [place] | | | | | [address] | | + + + + + | Mercedes Lemus | ECON | [place] | | | | | [address] | | + + + + + Care Team Providers + +------+ + | Care Circuit Breaker Assembler Name | Role | Phone | + +------+ + PCP | Unavailable | + +------+ + Encounter Details +--------+ + + + + | Date | Type | Department | Care Team | Description | +--------+ + + + + | 03/21/ | Hospital | [facility] | Jose Juan Bo | | | 2011 | Encounter | [facility] | MD [place] [address] | | | | | [address] [place] | [address] [place], [place] | | | | | [place], [place] | [address] | | | | | [address] | [phone] | | | | | [phone] | | | +--------+ + + + [...] | + +--------+ + + + | CULTURE, MRSA | Routin | 03/21/2012 | | | | | e | 4:17 PM | | | | | | PDT | | | + +--------+ + + + | PTT | Routin | 03/21/2012 | | Results for this | | | e | 4:17 PM | | procedure are in the | | | | PDT | | results section. | + +--------+ + + + | PROTIME INR | Routin | 03/21/2012 | | Results for this | | | e | 4:17 PM | | procedure are in the | | | | PDT | | results section. | + +--------+ + + + | CBC NO DIFFERENTIAL | Routin | 03/21/2012 | | Results for this | | | e | 4:17 PM | | procedure are in the | | | | PDT | | results section. | + +--------+ + + + | COMPREHENSIVE | Routin | 03/21/2012 | | Results for this | | METABOLIC PANEL | e | 4:17 PM | | procedure are in the | | | | PDT | | results section. | + +--------+ + + + documented in this encounter Results Culture, MRSA (03/21/2012 4:17 PM PDT) + + | Specimen | + + | | + + + + + + + | Performing | Address | City/State/Zipcode | Phone Number | | Organization | | | | + + + + + | [facility] | [address] | [place] | [phone] | | [facility] | | [address] | | | - LABORATORY | | | | + + + + + Protime INR (03/21/2012 4:17 PM PDT) + + + + + + | Component | Value | Ref Range | Performed | Pathologist | | | | | At | Signature | + + + + + + | Prothrombin | 12.9 | 11.3 - 13.9 | [facility] | | | Time | | seconds | [facility] | | | | | | MEDICAL | | | | | | CENTER - | | | | | | LABORATORY | | + + + + + + | PATIENT | 12.9 | seconds | [facility] | | | NORMAL MEAN | | | [facility] | | | | | | MEDICAL | | | | | | CENTER - | | | | | | LABORATORY | | + + + + + + | INR | 1.0Comment: INR: USUAL | 0.9 - 1.1 | [facility] | | | | ORAL ANTICOAGULATION | | [facility] | | | | RANGE | | MEDICAL | | | | 2.0-3.0 | | CENTER - | | | | HIGH LEVEL ORAL | | LABORATORY | | | | ANTICOAGULATION RANGE | | | | | | 2.5-3.5 | | | | + + + + + + + + | Specimen | + + | | + + + + + + + | Performing | Address | City/State/Zipcode | Phone Number | | Organization | | | | + + + + + | [facility] | [address] | [place], [place] | [phone] | | [facility] | | [address] | | | - LABORATORY | | | | + + + + + | [facility] | [address] | [place], [place] | | | [facility] | | [address], [facility] | | | - LABORATORY | | | | + + + + + PTT (03/21/2012 4:17 PM PDT) + + + + + + | Component | Value | Ref Range | Performed | Pathologist | | | | | At | Signature | + + + + + + | aPTT | 32.6Comment: Normal | 22.1 - 36.0 | [facility] | | | | Patient Mean Value: 29.0 | seconds | [facility] | | | | seconds | | MEDICAL | | | | | | CENTER - | | | | | | LABORATORY | | + + + + + + + + | Specimen | + + | | + + + + + + + | Performing | Address | City/State/Zipcode | Phone Number | | Organization | | | | + + + + + | [facility] | [address] | [place] | [phone] | | [facility] | | [address] | | | - LABORATORY | | | | + + + + + | [facility] | [address] | [place] | | | [facility] | | [address], [facility] | | | - LABORATORY | | | | + + + + + Comprehensive Metabolic Panel (03/21/2012 4:17 PM PDT) + + + + + + | Component | Value | Ref Range | Performed | Pathologist | | | | | At | Signature | + + + + + + | Glucose | 102 | 70 - 109 mg/dL | [facility] | | | | | | [facility] | | | | | | MEDICAL | | | | | | CENTER - | | | | | | LABORATORY | | + + + + + + | Calcium | 8.5 | 8.3 - 10.5 | [facility] | | | | | mg/dL | [facility] | | | | | | MEDICAL | | | | | | CENTER - | | | | | | LABORATORY | | + + + + + + | Alkaline | 90 | 40 - 110 IU/L | [facility] | | | Phosphatase | | | [facility] | | | | | | MEDICAL | | | | | | CENTER - | | | | | | LABORATORY | | + + + + + + | AST | 62 (H) | 10 - 42 IU/L | [facility] | | | | | | [facility] | | | | | | MEDICAL | | | | | | CENTER - | | | | | | LABORATORY | | + + + + + + | ALT | 57 (H) | 6 - 45 IU/L | [facility] | | | | | | [facility] | | | | | | MEDICAL | | | | | | CENTER - | | | | | | LABORATORY | | + + + + + + | Bilirubin | 0.8 | 0.2 - 1.0 mg/dL | [facility] | | | Total | | | [facility] | | | | | | MEDICAL | | | | | | CENTER - | | | | | | LABORATORY | | + + + + + + | Total | 6.2 | 6.0 - 7.8 gm/dL | [facility] | | | Protein | | | [facility] | | | | | | MEDICAL | | | | | | CENTER - | | | | | | LABORATORY | | + + + + + + | Albumin | 3.7 | 3.2 - 5.0 gm/dL | [facility] | | | | | | [facility] | | | | | | MEDICAL | | | | | | CENTER - | | | | | | LABORATORY | | + + + + + + | BUN | 7 | 7 - 18 mg/dL | [facility] | | | | | | [facility] | | | | | | MEDICAL | | | | | | CENTER - | | | | | | LABORATORY | | + + + + + + | Creatinine | 0.62 | 0.60 - 1.30 | [facility] | | | | | mg/dL | [facility] | | | | | | MEDICAL | | | | | | CENTER - | | | | | | LABORATORY | | + + + + + + | Estimated | >60Comment: For | >60 mL/min/A | [facility] | | | GFR | -Americans, | | [facility] | | | | please multiply the | | MEDICAL | | | | result by 1.210 | | CENTER - | | | | This is an estimated | | LABORATORY | | | | GFR and is based on a | | | | | | standard adult | | | | | | body mass (A=1.73m2) and | | | | | | serum creatinine | | | | + + + + + + | BUN/Creatin | 11.3 (L) | 12 - 20 | [facility] | | | ine Ratio | | | [facility] | | | | | | MEDICAL | | | | | | CENTER - | | | | | | LABORATORY | | + + + + + + | Na | 134 (L) | 136 - 149 mEq/L | [facility] | | | | | | [facility] | | | | | | MEDICAL | | | | | | CENTER - | | | | | | LABORATORY | | + + + + + + | K | 3.5 | 3.5 - 5.1 mEq/l | [facility] | | | | | | [facility] | | | | | | MEDICAL | | | | | | CENTER - | | | | | | LABORATORY | | + + + + + + | Cl | 103 | 98 - 109 mEq/l | [facility] | | | | | | [facility] | | | | | | MEDICAL | | | | | | CENTER - | | | | | | LABORATORY | | + + + + + + | CO2 | 26 | 24 - 31 mEq/L | [facility] | | | | | | [facility] | | | | | | MEDICAL | | | | | | CENTER - | | | | | | LABORATORY | | + + + + + + | Anion Gap | 8.5 | 6.0 - 17.0 | [facility] | | | | | | [facility] | | | | | | MEDICAL | | | | | | CENTER - | | | | | | LABORATORY | | + + + + + + + + | Specimen | + + | | + + + + + + + | Performing | Address | City/State/Zipcode | Phone Number | | Organization | | | | + + + + + | [facility] | [address] | [place], [place] | [phone] | | [facility] | | [address] | | | - LABORATORY | | | | + + + + + | [facility] | [address] | [place], [place] | | | [facility] | | [address], [facility] | | | - LABORATORY | | | | + + + + + CBC no Differential (03/21/2012 4:17 PM PDT) + +-------+ + + + | Component | Value | Ref Range | Performed | Pathologist | | | | | At | Signature | + +-------+ + + + | WBC | 5.1 | 4.0 - 11.0 K/uL | [facility] | | | | | | [facility] | | | | | | MEDICAL | | | | | | CENTER - | | | | | | LABORATORY | | + +-------+ + + + | RBC | 4.12 | 3.70 - 5.20 | [facility] | | | | | M/uL | [facility] | | | | | | MEDICAL | | | | | | CENTER - | | | | | | LABORATORY | | + +-------+ + + + | Hemoglobin | 13.7 | 11.5 - 16.0 | [facility] | | | | | gm/dL | [facility] | | | | | | MEDICAL | | | | | | CENTER - | | | | | | LABORATORY | | + +-------+ + + + | Hematocrit | 39.9 | 34.0 - 47.0 % | [facility] | | | | | | [facility] | | | | | | MEDICAL | | | | | | CENTER - | | | | | | LABORATORY | | + +-------+ + + + | MCV | 96.9 | 83.0 - 101.0 fL | [facility] | | | | | | [facility] | | | | | | MEDICAL | | | | | | CENTER - | | | | | | LABORATORY | | + +-------+ + + + | MCH | 33.3 | 28.0 - 35.0 pg | [facility] | | | | | | [facility] | | | | | | MEDICAL | | | | | | CENTER - | | | | | | LABORATORY | | + +-------+ + + + | MCHC | 34.4 | 32.0 - 36.0 | [facility] | | | | | g/dL | [facility] | | | | | | MEDICAL | | | | | | CENTER - | | | | | | LABORATORY | | + +-------+ + + + | RDW-CV | 12.6 | <15.0 % | [facility] | | | | | | [facility] | | | | | | MEDICAL | | | | | | CENTER - | | | | | | LABORATORY | | + +-------+ + + + | Platelet | 203 | 140 - 440 K/uL | [facility] | | | Count | | | [facility] | | | | | | MEDICAL | | | | | | CENTER - | | | | | | LABORATORY | | + +-------+ + + + + + | Specimen | + + | | + + + + + + + | Performing | Address | City/State/[facility] | Phone Number | | Organization | | | | + + + + + | [facility] | [address] | [place] | [phone] | | [facility] | | [address] | | | - LABORATORY | | | | + + + + + | [facility] | [address] | [place] | | | [facility] | | [address], [facility] | | | - LABORATORY | | | | + + + + + documented in this encounter Visit Diagnoses Not on filedocumented in this encounter"
--- OUTSIDE RECORDS SUMMARY | ~2019-12-13 | XMS | Encounter Summary ---
Demographics + + + | Address | [address] | | | [place] [address] | + + + | Home Phone | | + + + | Preferred Language | Unknown | + + + | Marital Status | | + + + | Zoroastrianism Affiliation | 1041 | + + + | Race | Unknown | + + + | Ethnic Group | Unknown | + + + Author + + + | Author | [facility] | | | and [place] | + + + | Organization | [facility] | | | [...] [place], [place] | | | | | [address] | | + + + + + | Mercedes Lemus | ECON | [place] | | | | | [address] | | + + + + + Care Team Providers + +------+ + | Care Cardiovascular Radiologic Technologist Name | Role | Phone | + +------+ + | Hector Mccoy DO | PCP | | + +------+ + Encounter Details +--------+ + + + + | Date | Type | Department | Care Team | Description | +--------+ + + + + | 08/24/ | Abstract | [facility] [place] | [facility], | | | 2016 | | PHYSIATRY [address] | DANIA Perez [address] | | | | | [address] | [address] | | | | | [place], [place] | [place] [address] | | | | | [address] | [phone] | | | | | [phone] | | | +--------+ + + + [...]
--- OUTSIDE RECORDS SUMMARY | ~2019-12-13 | XMS | Encounter Summary ---
Demographics + + + | Address | [address] | | | [place] [address] | + + + | Home Phone | | + + + | Preferred Language | Unknown | + + + | Marital Status | | + + + | Catholic Affiliation | 1041 | + + + | Race | Unknown | + + + | Ethnic Group | Unknown | + + + Author + + + | Author | [facility] | | | and [place] | + + + | Organization | [facility] | | | [...] [place], [place] | | | | | [address] | | + + + + + | Mercedes Lemus | ECON | [place] | | | | | [address] | | + + + + + Care Team Providers + +------+ + | Care Geodetic Technician Name | Role | Phone | + +------+ + | Hector Harris DO | PCP | | + +------+ + Encounter Details +--------+ + + + + | Date | Type | Department | Care Team | Description | +--------+ + + + + | 12/08/ | Hospital | [facility] | Zac, | Chest pain | | 2015 - | Encounter | [facility] | MD [address] | | | | | CLINICAL DECISION | [address] | | | 12/09/ | | [address] | [place] [address] | | | 2015 | | [place], [place] | [phone] | | | | | [address] | | | | | | [phone] | | | +--------+ + + + [...] Summaries by Scott Woods MD at 12/09/14 1853 Author: Scott Woods MD Service: Hospitalist Author Type: Physician Filed: 12/14/14 4004 Date of Service: 12/09/14 0449 Status: Signed Email Campaign Manager: Scott Woods MD (Physician) Related Notes: Original Note by Scott Woods MD (Physician) filed at 12/09/14 16 42 [facility] Service: Hospitalist Physician Discharge Summary Pt: Tree Collado AGE/SEX: 74 y.o. female ROOM: 1121/1121-1 PCP: SUSIE HARRIS : 1940 Admit date: [...] of cardiac enzymes were negative for acute MD. Nuclear m edicine stress test was ordered [...] aortic stenosis and I would suggest to [facility] physician to repeat echocardiogram in about 1 year from now. In my opinion, the patie nt can be discharged home as she insists on going home today and does not to wait until wilma rrow. I will request primary care physician to [...] NEUTOPHILPCT 54.12 MONOPCT 11.70 Recent Labs Lab 12/09/14414 NA 137 K 3.8 CL 103 CO2 26 BUN 21 CREATININE 0.72 PROT 6.2* BILITOT 0.6 ALT 42 AST 43 Invalid input(s): LABALBU Recent Labs Lab 12/09/14414 MG 2.1 No results for input(s): AMYLASE in the last 168 hours. No results for input(s): PHART, PO2ART, WEM2HIS, B0XHKTBC, BEART in the last 168 hours. No results for input(s): APTT, INR, PTT in the last 168 hours. Recent Labs Lab 12/09/14414 CKTOTAL 53 TROPONINI <0.020 CKMBINDEX 1.1 Disposition: [...] documented as of this encounter Progress Notes Conversion Transaction, Provider Unknown - 12/09/2014 4:45 PM PDTFormatting of this note m ight be different from the original. Nurse Progress Note by Abby Weeks RN at 12/09/141644 Author: Abby Weeks RN Service: (none) Author Type: Registered Nurse Filed: 12/09/14 1648 Date of Service: 12/09/141644 Status: Signed Email Campaign Manager: Abby Weeks RN (Registered Nurse) Pt stable [...] Nurse Filed: 12/09/14 1622 Date of Service: 12/09/141609 Status: Signed Email Campaign Manager: Abby Weeks RN (Registered Nurse) Dr Chuck perla. onver wong Transaction, Provider Unknown - 12/09/2014 3:34 PM PDT Case Management by Kristi Perez RN at 12/09/141533 Author: Kristi Perez RN Service: (none) Author Type: Registered Nurse Filed: 12/09/141533 Date of Service: 12/09/141533 Status: Signed Email Campaign Manager: Kristi Perez RN (Registered Nurse) Discharge planning: [...] Progress Note by Abby Weeks RN at 12/09/14422 Author: Abby Weeks RN Service: (none) Author Type: Registered Nurse Filed: 12/09/14 1520 Date of Service: 12/09/14422 Status: Addendum Email Campaign Manager: Abby Weeks RN (Registered Nurse) Related Notes: Original Note by Abby Weeks RN (Registered Nurse) filed at 12/09/14 14 55 Removed nitro patch now. onver wong Transaction, Provider Unknown - 12/09/2014 4:16 AM PDT Progress Notes by Carlita Aj RPH at 12/09/14415 Author: Carlita Aj RPH Service: (none) Author Type: Pharmacist Filed: 12/09/14415 Date of Service: 12/09/14415 Status: Signed Email Campaign Manager: Carlita Aj RPH (Pharmacist) Clinical Pharmacy Note: Renal Monitoring Tree Collado 74 y.o. female Height: 162.6 cm Weight: 91.2 kg Serum Creatinine: 0.64 mg/dL (from [facility]) Estimated creatinine clearance - Cockcroft-Gault CrCl: 87 mL/min Pharmacy dosing for renal function per Dr. Gaspar. Currently there are no medications needing to be adjusted. Pharmacy will continue to monito r for changes in medication orders and in renal function and adjust accordingly per protocol . Carlita Aj, PharmD 12/09/2014 4:15 AM docume nted in this encounter Plan of [...] | | D-E Excursion: 1.62 cm E-F Mcminn: 0.04 m/s EPSS: 0.48 cm | | [...] | | | 0.53 m/s TV Dec Mcminn: 3.06 m/s2 TV Dec Time: 141.74 ms TV E | | | Darrell: 0.43 m/s TV E/A Ratio: 0.80 Laminating Press Operator: LUDY | | | Authenticated by: Lawrence Ortiz MD, FACC, FACP, FASDC Report | | | Date/Time: -- [id number] | | + + + + + | Procedure Note | + + | Scottie, Rad Conversion - 03/08/2019 12:59 AM PDT Patient Name: Yo COLLADO | | of : 1940 Performing Physician: Lawrence Ortiz MD, FACC, | | FACP, | | FASNC INDICATIONS--------- [...] mlLAESV Index (A-L): 17.95 ml/m2LAAs A2C: 13.96 [id number] A-L A2C: 33.02 mlLALs | | A2C: 5.01 cmLAAs A4C: 13.50 [id number] A-L A4C: 34.03 mlLALs A4C: 4.54 cm%FS: | | 45.07 %EDV(Teich): 82.16 mlEF(Teich): 76.69 %ESV(Teich): 19.14 mlIVSd: 1.08 | | cmIVSs: 1.80 cmLVIDd: 4.28 cmLVIDs: 2.35 cmLVPWd: 1.26 cmLVPWs: 1.44 | | cmSV(Teich): 63.01 mlD-E Excursion: 1.62 cmE-F Mcminn: 0.04 m/sEPSS: 0.48 cmIVC | | diameter: 1.95 cmIVC collapse: 1.02 cmIVC % collapse: 45.86 %HR: 77.28 BPMAV | | maxP.15 mmHgAV meanP.15 mmHgAV Vmax: 2.07 m/Magdaleno Vmean: 1.68 m/Magdaleno VTI: | | 44.75 cmAVA Vmax: 1.46 cm2AVA (VTI): 1.35 ej3EMXC Dopp: 2.72 l/ljmc8HXEG Dopp: | | 5.34 l/minHR: 87.96 BPMLVOT [...] A Darrell: | | 0.53 m/sTV Dec Mcminn: 3.06 m/s2TV Dec Time: 141.74 msTV E Darrell: 0.43 m/sTV E/A | | Ratio: 0.80 Laminating Press Operator: MIKAuthenticated by: Lawrence Ortiz MD, FACC, FACP, | | FASNCReport Date/Time: -- [id number] IMPRESSION: 1. Overall left ventricular | | [...] | |D-E Excursion: 1.62 cm | |E-F Mcminn: 0.04 m/s | |EPSS: 0.48 cm | [...] A Darrell: 0.53 m/s | |TV Dec Mcminn: 3.06 m/s2 | |TV Dec Time: 141.74 ms | |TV E Darrell: 0.43 m/s | |TV E/A Ratio: 0.80 | | | |Laminating Press Operator: LUDY | |Authenticated by: Lawrence Ortiz MD, FAC, FACP, [facility] | |Report Date/Time: -- [id number] | | | |IMPRESSION: | |1. Overall [...] + + | Historically converted procedure from [facility] Epic environment | EXTERNAL LAB | + + + + +---------+ + + | Performing | Address | City/State/Zipcode | Phone Number | | Organization | | | | + +---------+ + + | EXTERNAL LAB | | | | + +---------+ + + CK-[facility] (12/09/2014 4:15 AM PDT) + + + + + -+ | Component | Value | Ref Range | Performed | Pathologist | | | | | At | Signature | + + + + + -+ | CK-MB | 0.6Comment: Testing | 0.5 - 3.6 ng/mL | EXTERNAL | | | | performed at [facility];[address] | | LAB | | | | [address];[place], [place] | | | | | | [address] | | | | + + + [...] | | | | | | ACUTE MD Testing | | | | | | performed at [facility];[address] | | | | | | [facility];[place], [place] | | | | | | [address] | | | | + + + + + + + + | Specimen | + + | Blood specimen | | (specimen) | + + + +---------+ + + | Performing | Address | City/State/Zipcode | Phone Number | | Organization | | | | + +---------+ + + | EXTERNAL LAB | | | | + +---------+ + + External Lab: CBC (12/09/2014 4:15 AM PDT) + + + + + + | Component | Value | Ref Range | Performed | Pathologist | | | | | At | Signature | + + + + + + | WBC | 7.55Comment: Testing | 3.80 - 11.00 | EXTERNAL | | | | performed at [facility], [address] | K/uL | LAB | | | | [address], | | | | | | [place] [address] | | | | + + + + + + | Red Blood | 4.39Comment: Testing | 3.70 - 5.10 | EXTERNAL | | | Cells | performed at [facility], [address] | M/uL | LAB | | | Counted | [address], | | | | | | [place], [place] [address] | | | | + + + + + + | Hemoglobin | 14.3Comment: Testing | 11.3 - 15.5 | EXTERNAL | | | | performed at [facility], [address] | g/dL | LAB | | | | [address], | | | | | | [place] [address] | | | | + + + + + + | Hematocrit, | 43.1Comment: Testing | 34.0 - 46.0 % | EXTERNAL | | | POC | performed at [facility], [address] | | LAB | | | | [address], | | | | | | [place] [address] | | | | + + + + + + | MCV | 98.2Comment: Testing | 80.0 - 100.0 fl | EXTERNAL | | | | performed at [facility], [address] | | LAB | | | | [address], | | | | | | [place] [address] | | | | + + + + + + | MCH | 32.7Comment: Testing | 27.0 - 34.0 pg | EXTERNAL | | | | performed at [facility], [address] | | LAB | | | | [address], | | | | | | [place] [address] | | | | + + + + + + | MCHC | 33.3Comment: Testing | 32.0 - 35.5 | EXTERNAL | | | | performed at [facility], [address] | g/dL | LAB | | | | [address], | | | | | | [place] [address] | | | | + + + + + + | RDW-CV | 44.2Comment: Testing | 37 - 53 fl | EXTERNAL | | | | performed at [facility], [address] | | LAB | | | | [address], | | | | | | [place] [address] | | | | + + + + + + | Platelet | 251Comment: Testing | 150 - 400 K/uL | EXTERNAL | | | Count | performed at [facility], [address] | | LAB | | | Plasma | [address], | | | | | | [place] [address] | | | | + + + + + + | MPV | 9.0Comment: Testing | fl | EXTERNAL | | | | performed at [facility], [address] | | LAB | | | | [address], | | | | | | [place] [address] | | | | + + + + + + | Differentia | AUTOMATEDComment: | | EXTERNAL | | | l Type | Testing performed at | | LAB | | | | [facility], [address] | | | | | | [place] | | | | | | [address] | | | | + + + + + + | % Segmented | 54.12Comment: Testing | % | EXTERNAL | | | | performed at [facility], [address] | | LAB | | | Neutrophils | [address], | | | | | | [place] [address] | | | | + + + + + + | % | 27.06Comment: Testing | % | EXTERNAL | | | Lymphocytes | performed at [facility], [address] | | LAB | | | | [address], | | | | | | [place], [place] [address] | | | | + + + + + + | % Monocytes | 11.70Comment: Testing | % | EXTERNAL | | | | performed at [facility], [address] | | LAB | | | | [address], | | | | | | [place], [place] [address] | | | | + + + + + + | % | 6.04Comment: Testing | % | EXTERNAL | | | Eosinophils | performed at [facility], [address] | | LAB | | | | [address], | | | | | | [place] [address] | | | | + + + + + + | % Basophils | 1.08Comment: Testing | % | EXTERNAL | | | | performed at [facility], [address] | | LAB | | | | [address], | | | | | | [place] [address] | | | | + + + + + + | Absolute | 4.09Comment: Testing | 1.90 - 7.40 | EXTERNAL | | | Segmented | performed at [facility], [address] | K/uL | LAB | | | Neutrophils | [address], | | | | | | [place] [address] | | | | + + + + + + | Absolute | 2.04Comment: Testing | 1.00 - 3.90 | EXTERNAL | | | Lymphocytes | performed at [facility], [address] | K/uL | LAB | | | | [address], | | | | | | [place] [address] | | | | + + + + + + | Absolute | 0.88 (H)Comment: Testing | 0.00 - 0.80 | EXTERNAL | | | Monocytes | performed at [facility], [address] | K/uL | LAB | | | | [address], | | | | | | [place] [address] | | | | + + + + + + | Absolute | 0.46Comment: Testing | 0.00 - 0.50 | EXTERNAL | | | Eosinophils | performed at [facility], [address] | K/uL | LAB | | | | [address], | | | | | | [place] [address] | | | | + + + + + + | Absolute | 0.08Comment: Testing | 0.00 - 0.10 | EXTERNAL | | | Basophils | performed at [facility], [address] | K/uL | LAB | | | | [address], | | | | | | [place] [address] | | | | + + + [...] EXTERNAL | | | | performed at [facility], [address] | uIU/mL | LAB | | | | [address], | | | | | | [place] [address] | | | | + + + [...] EXTERNAL | | | | performed at [facility], [address] | | LAB | | | | [address], | | | | | | [place] [address] | | | | + + + [...] EXTERNAL | | | | performed at [facility], [address] | | LAB | | | | [address], | | | | | | [place] [address] | | | | + + + [...] EXTERNAL | | | | performed at [facility];[address] | | LAB | | | | [address];[place], [place] | | | | | | [address] | | | | + + + [...] | | | | | [place] [address] | | | | + + + + + + | Triglycerid | 174 (H)Comment: Testing | mg/dL | EXTERNAL | | | es | performed at [facility], [address] | | LAB | | | | [address], | | | | | | [place] [address] | | | | + + + + + + | HDL | 46Comment: Testing | mg/dL | EXTERNAL | | | | performed at [facility], [address] | | LAB | | | | [address], | | | | | | [place] [address] | | | | + + + + + + | LDL, | 115 (H)Comment: Testing | mg/dL | EXTERNAL | | | Calculated | performed at [facility], [address] | | LAB | | | | [address], | | | | | | [place] [address] | | | | + + + [...] mmol/L | LAB | | | | [address], | | | | | | [place] [address] | | | | + + + + + + | K | 3.8Comment: Testing | 3.5 - 4.9 | EXTERNAL | | | | performed at [facility], [address] | mmol/L | LAB | | | [address], | | | | | | [place] [address] | | | | + + + + + + | Cl | 103Comment: Testing | 99 - 109 mmol/L | EXTERNAL | | | | performed at [facility], [address] | | LAB | | | | [address], | | | | | | [place] [address] | | | | + + + + + + | CO2 | 26Comment: Testing | 23 - 32 mmol/L | EXTERNAL | | | | performed at [facility], [address] | | LAB | | | | [address], | | | | | | [place] [address] | | | | + + + + + + | Anion Gap | 12Comment: Testing | 5 - 20 mmol/L | EXTERNAL | | | | performed at [facility], [address] | | LAB | | | | [address], | | | | | | [place] [address] | | | | + + + + + + | Glucose, | 134 (H)Comment: Testing | 65 - 99 mg/dL | EXTERNAL | | | Fasting | performed at [facility], [address] | | LAB | | | | [address], | | | | | | [place] [address] | | | | + + + + + + | BUN | 21Comment: Testing | 8 - 25 mg/dL | EXTERNAL | | | | performed at [facility], [address] | | LAB | | | | [address], | | | | | | [place] [address] | | | | + + + + + + | Creatinine | 0.72Comment: Testing | 0.50 - 1.00 | EXTERNAL | | | | performed at [facility], [address] | mg/dL | LAB | | | | [address], | | | | | | [place] [address] | | | | + + + + + + | BUN/Creatin | 29Comment: Testing | | EXTERNAL | | | ine Ratio | performed at [facility], [address] | | LAB | | | | [address], | | | | | | [place] [address] | | | | + + + + + + | Calcium | 9.0Comment: Testing | 8.5 - 10.5 | EXTERNAL | | | | performed at [facility], [address] | mg/dL | LAB | | | | [address], | | | | | | [place] [address] | | | | + + + + + + | Protein, | 6.2 (L)Comment: Testing | 6.3 - 8.2 g/dL | EXTERNAL | | | Total | performed at [facility], [address] | | LAB | | | | [address], | | | | | | [place] [address] | | | | + + + + + + | Albumin | 3.6Comment: Testing | 3.3 - 4.8 g/dL | EXTERNAL | | | | performed at [facility], [address] | | LAB | | | | [address], | | | | | | [place] [address] | | | | + + + + + + | Globulin | 2.6Comment: Testing | 1.3 - 4.9 g/dL | EXTERNAL | | | | performed at [facility], [address] | | LAB | | | | [address], | | | | | | [place] [address] | | | | + + + + + + | A/G Ratio | 1.4Comment: Testing | 1.0 - 2.4 | EXTERNAL | | | | performed at [facility], [address] | | LAB | | | | [address], | | | | | | [place] [address] | | | | + + + + + + | Bilirubin | 0.6Comment: Testing | 0.1 - 1.5 mg/dL | EXTERNAL | | | Total | performed at [facility], [address] | | LAB | | | | [address], | | | | | | [place] [address] | | | | + + + + + + | ALP, | 106Comment: Testing | 35 - 115 U/L | EXTERNAL | | | External | performed at [facility], [address] | | LAB | | | | [address], | | | | | | [place] [address] | | | | + + + + + + | AST | 43Comment: Testing | 10 - 45 U/L | EXTERNAL | | | | performed at [facility], [address] | | LAB | | | | [address], | | | | | | [place] [address] | | | | + + + + + + | ALT | 42Comment: Testing | 10 - 65 U/L | EXTERNAL | | | | performed at [facility], [address] | | LAB | | | | [address], | | | | | | [place] [address] | | | | + + + [...] | | | | | | at [facility], [address] | | | | | | [address], | | | | | | [place] [address] | | | | + + + [...] | | | | | performed at [facility] | | | | | | [facility];[place], [place] | | | | | | [address] | | | | + + + [...] | | | | | ONLY, -COMPUTER ([id number]), | | | | | | development editor Bruna Torre | | | | | | (25) on 12/09/2014 | | | | | | 1:40:05 AM | | | | + + + + + + + + | Specimen | + + | | + + + + + | Narrative | Performed At | + + + | [facility] | EXTERNAL LAB | + + [...] unspecified | + + documented in this encounter"
--- OUTSIDE RECORDS SUMMARY | ~2019-12-13 | XMS | Encounter Summary ---
Demographics + + + | Address | [address] | | | [place] [address] | + + + | Home Phone | | + + + | Preferred Language | Unknown | + + + | Marital Status | | + + + | Moravian Affiliation | 1041 | + + + | Race | Unknown | + + + | Ethnic Group | Unknown | + + + Author + + + | Author | [facility] | | | and [place] | + + + | Organization | [facility] | [...] [place], [place] | | | | | [address] | | + + + + + | Mercedes Lemus | ECON | [place] | | | | | [address] | | + + + + + Care Team Providers + +------+ + | Care Fruit Culler Name | Role | Phone | + +------+ + | Hector Mccoy DO | PCP | | + +------+ + Reason for Visit + + + | Reason | Comments | + + + | Injections | | + + + Encounter Details +--------+ + + + + | Date | Type | Department | Care Team | Description | +--------+ + + + + | 09/01/ | Telephone | [facility] | Cecilio Ram | Injections | | 2017 | | PHYSIATRY [address] | [address] | | | | [address] | [place], [place] | | | | | [place], [place] | [address] | | | | | [address] | | | | | | [phone] | | | +--------+ + + + [...]
--- OUTSIDE RECORDS SUMMARY | ~2019-12-13 | XMS | Encounter Summary ---
Demographics + + + | Address | [address] | | | [place] [address] | + + + | Home Phone | | + + + | Preferred Language | Unknown | + + + | Marital Status | | + + + | Baptist Affiliation | 1041 | + + + | Race | Unknown | + + + | Ethnic Group | Unknown | + + + Author + + + | Author | [facility] | | | and [place] | + + + | Organization | [facility] | | | [...] [place], [place] | | | | | [address] | | + + + + + | Mercedes Lemus | ECON | [place] | | | | | [address] | | + + + + + Care Team Providers + +------+ + | Care Craft Coordinator Name | Role | Phone | + +------+ + | Martell Hilario NP | PCP | | + +------+ + Encounter Details +--------+ + + + + | Date | Type | Department | Care Team | Description | +--------+ + + + + | 10/01/ | Emergency | [facility] | Wilman Campbell, | Acute left-sided low | | 2019 | | MEDICAL CENTER | MD [address]ae[address] | back pain without | | | | EMERGENCY CENTER | [place] [address] | sciatica | | | | [address] | [phone] | | | | | [place], [place] | | | | | | [address] | | | | | | [phone] | | | +--------+ + + + [...] + + + | Blood Pressure | 174/78 | 10/01/2018 2:58 AM | | | | | PDT | | + + + + + | Pulse | 69 | 10/01/2018 2:58 AM | | | | | PDT | | + + + + + | Temperature | 36.5 C (97.7 F) | 10/01/2018 2:58 AM | | | | | PDT | | + + + + + | Respiratory Rate | 17 | 10/01/2018 2:58 AM | | | | | PDT | | + + + + + | Oxygen Saturation | - | - | | + + + + + | Inhaled Oxygen | - | - | | | Concentration | | | | + + + + + | Weight | 88.5 kg (195 lb) | 10/01/2018 2:58 AM | | | | | PDT | | + + + + + | Height | - | - | | + + + + + | Body Mass Index | 33.47 | 04/11/2018 10:50 AM | | | | | PDT | | + + + + + documented in this encounter Medications [...] LUMBAR SPINE 2 OR | Routin | 10/01/2018 | | Results for this | | 3 VW | e | 1:54 AM | | procedure are in the | | | | PDT | | results section. | + +--------+ + + + documented in this encounter Results XR Lumbar Spine 2 or 3 Vw (10/01/2018 1:54 AM PDT) + + | Specimen | + + | | + + + + + | Impressions | Performed At | + + + | No definite acute findings. Stable appearing postsurgical changes | | | of a lumbosacral fusion from L4 through S1. Signed by: MD Soledad, | | | Yg Sign Date/Time: 10/01/2018 2:25 AM | | + + + + + + | Narrative | Performed At | + + + | LUMBAR SPINE TWO VIEWS CLINICAL INFORMATION: Lower back pain after | | | a fall. COMPARISON: [place] EPIDURAL STEROID INJECTION LUMBAR | | | TRANSFORAMINAL (04/16/2018); [place] EPID[place]ID INJECTION LUMBAR | | | TRANSFORAMINAL (08/31/2017); [place] EPID[place]EROID INJECTION LUMBAR | | | TRANSFORAMINAL (04/05/2017); MRI LUMBAR SPINE WO CONTRAST (10/25/2016); | | | CT LUMBAR SPINE WO CONTRAST (05/26/2016); FINDINGS: Alignment: | | | Stable subtle retrolisthesis of L1 on L2. Alignment otherwise | | | normal. Vertebrae: Stable postsurgical changes of a lumbosacral | | | fusion from L4 through S1. Hardware is stable in position with no | | | evidence of hardware fracture or loosening. Intervertebral disc | | | cages stable. No vertebral fractures. Diffuse mild spondylosis. | | | Lumbar Disc Levels: Stable mild narrowing of the intervertebral disc | | | spaces at L1-L2 and L2-L3. anterior fusions at L4-L5 and L5-S1. | | | Facets and Posterior Spinal Elements: Grossly intact. | | + + + + + | Procedure Note | + + | Scottie, Rad Conversion - 03/05/2019 6:35 PM PDT LUMBAR SPINE TWO VIEWS | | CLINICAL INFORMATION: | | Lower back pain after a fall. | | COMPARISON: | | [place] EP[place]ID INJECTION LUMBAR TRANSFORAMINAL (04/16/2018); [place] | | EPID[place]EROID INJECTION LUMBAR TRANSFORAMINAL (08/31/2017); [place] | | EPIDURAL STEROID INJECTION LUMBAR TRANSFORAMINAL (04/05/2017); MRI | | LUMBAR SPINE WO CONTRAST (10/25/2016); CT LUMBAR SPINE WO CONTRAST | | (05/26/2016); | | FINDINGS: | | Alignment: Stable subtle retrolisthesis of L1 on L2. Alignment | | otherwise normal. | | Vertebrae: Stable postsurgical changes of a lumbosacral fusion from L4 | | through S1. Hardware is stable in position with no evidence of | | hardware fracture or loosening. Intervertebral disc cages stable. No | | vertebral fractures. Diffuse mild spondylosis. | | Lumbar Disc Levels: Stable mild narrowing of the intervertebral disc | | spaces at L1-L2 and L2-L3. anterior fusions at L4-L5 and L5-S1. | | Facets and Posterior Spinal Elements: Grossly intact. | | IMPRESSION: | | No definite acute findings. Stable appearing postsurgical changes of a | | lumbosacral fusion from L4 through S1. | | Signed by: MD Rowe Robin | | Sign Date/Time: 10/01/2018 2:25 AM | + + documented in this encounter Visit Diagnoses + + | Diagnosis | + + | Acute left-sided low back pain without sciatica | + + documented in this encounter"
--- OUTSIDE RECORDS SUMMARY | ~2019-12-13 | XMS | Encounter Summary ---
Demographics + + + | Address | [address] | | | [place] [address] | + + + | Home Phone | | + + + | Preferred Language | Unknown | + + + | Marital Status | | + + + | Christian Affiliation | 1041 | + + + | Race | Unknown | + + + | Ethnic Group | Unknown | + + + Author + + + | Author | [facility] | | | and [place] | + + + | Organization | [facility] | | | [...] [place], [place] | | | | | [address] | | + + + + + | Mercedes Lemus | ECON | [place] | | | | | [address] | | + + + + + Care Team Providers + +------+ + | Care Elevator Examiner And Adjuster Name | Role | Phone | + [...] | | | | Major Joint | [address] | | | | | | Right | Phone: | | | | | | | [phone] | | | | | | | Fax: | | | | | | | [phone] | | +--------+--------+ + + + + [...] | Lumbar | [place], | [address] | | | | | radiculopath | Cecilio Ortiz MD | [place], | | | | | y | [address] | [place] | | | | | Procedures | [place] | [address] | | | | | [place] INJECT | [place], [place] | Phone: | | | | | ANES/STEROID | [address] | [phone] | | | | | FORAMEN | Phone: | Fax: | | | | | LUMBAR/SACRA | [phone] | [phone] | | | | | L W IMG | Fax: | | | | | | GUIDE ,1 | [phone] | | | | | | [place]EVEL [place] | | | | | | | [...] + + | 04/16/ | Hospital | [facility] | Angus, | Spinal stenosis of | | 2018 | Encounter | MED CTR XRAY [address] | DANIA [address] | lumbar region with | | | | [place] [place] | [address] , [address] | radiculopathy; S/P | | | | [place] [address] | [place] [address] | lumbar fusion; | | | | [phone] | [phone] | Chronic pain of | | | | | | right knee | | | | | International 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
--- OUTSIDE RECORDS SUMMARY | ~2019-12-13 | XMS | Encounter Summary ---
Demographics + + + | Address | [address] | | | [place] [address] | + + + | Home Phone [...] [place], [place] | | | | | [address] | | + + + + + | Mercedes Lemus | ECON | [place] | | | | | [address] | | + + + + + Care Team Providers + +------+ + | Care Buttermilk Drier Operator Name | Role | Phone | [...] [address] | MD Kelby [address] [place] | spondylolisthesis | | | | [address] | [place] | (Primary Dx) | | | | [place] | [address] | | | | | [address] | [phone] | | | | | [phone] | | | +--------+ + + + [...]
--- OUTSIDE RECORDS SUMMARY | ~2019-12-13 | XMS | Encounter Summary ---
Demographics + + + | Address | [address] | | | [place] [address] | + + + | Home Phone | | + + + | Preferred Language | Unknown | + + + | Marital Status | | + + + | Presybeterian Affiliation | 1041 | + + + | Race | Unknown | + + + | Ethnic Group | Unknown | + + + Author + + + | Author | [facility] | | | and [place] | + + + | Organization | [facility] | | | [...] [place], [place] | | | | | [address] | | + + + + + | Mercedes Lemus | ECON | [place] | | | | | [address] | | + + + + + Care Team Providers + +------+ + | Care Fbi Sharpshooter Name | Role | Phone | + +------+ + | Hector Mccoy DO | PCP | | + +------+ + Reason for Referral Evaluate & Treat (Routine) +--------+ + + + + + | Status | Reason | Specialty | Diagnoses / | Referred By | Referred To | | | | | Procedures | Contact | Contact | +--------+ + + + + + | Closed | Specialty | Physical | Diagnoses | [facility] | | | | Services | Therapy | Status post | Neurosurgery | | | | Required | | lumbar | [address] | | | | | | spinal | [address] | | | | | | fusion | [address] | | | | | | Procedures | [place], | | | | | | PT | [place] | | | | | | | [address] | | | | | | | Phone: | | | | | | | [phone] | | | | | | | Fax: | | | | | | | [phone] | | +--------+ + + + + + + + | Scheduling Instructions | + + | PHYSICAL THERAPY: TEACH LUMBAR HYGIENE; SAFETY, ERGONOMICS, MECHANICS, POSTURE, & | | BALANCE FOR 1-2 VISITS. LIFTING LIMITS ARE FOLLOWS: MONTH 1: 5 POUNDS | | MONTH 2: 15-25 POUNDS MONTH 3: 25-30 POUNDS AFTER THAT TOLERATED PLEASE FAX | | RESULTS UPON COMPLETION TO [phone] | + + Reason for Visit + + + | Reason | Comments | + + + | Wound Check | Post-op 2 week follow-up | + + + Encounter Details +--------+ + + + + | Date | Type | Department | Care Team | Description | +--------+ + + + + | 05/22/ | Clinical | [facility] | | Status post lumbar | | 2011 | Support | NEUROSURGERY [address] | | spinal fusion | | | | [address] | | (Primary Dx) | | | | [place] | | | | | | [address] | | | | | | [phone] | | | +--------+ + + + [...] + + documented as of this encounter Patient Instructions Patient Instructions Kamini Alegria - 05/22/2012 9:29 AM PDTLIFTING LIMITS ARE FOLL OWS: MONTH 1: 5 POUNDS MONTH 2: 15-25 POUNDS MONTH 3: 25-30 POUNDS AFTER THAT TOLERATED Physical Therapy and lifting limits to began on 06/07/12. documented in this encounter Progress Notes Kamini Alegria - 05/22/2012 9:52 AM PDT Neurosurgery Postoperative Wound Check/Nurse Visit Wound Information: Location: Back Photo Attached: no Wound Type: Surgical Incisions-X3 Wound Size: Wound Bed: WNL Wound Edges: Well approximated and intact Drainage (Amount): no Drainage (Color): no Odor: no Treatment/Dressing: Open to air Lab Orders: None Clinical/Plan: Pain (0-10): 4-5/10 Pain Management: Percocet 7.5/325mg, 1-3 tabs daily Effective Pain Mgmt: Yes Refill Needed: No Notes: Tree states that she has fall twice last week, the last fall was on Monday. She was taken to [facility] on 05/18/12, and was released that same day. Tree sta lissa that the falls were a result of her not using her FWW and losing her balance. She state s that she will be using her walker at all times. No complaints of numbness or tingling sin ce surgery. She is up walking as much as she can, using her FWW. Therapy Plans: Given X-Rays: Prior to next appointment Plan/Follow-Up: Appointment with Dr. Bo in about one month documented in this en counter Plan of Treatment + + +--------+ + + | Name | Type | Priori | Associated Diagnoses | Order Schedule | | | | ty | | | + + +--------+ + + | Ambulatory referral | Outpatient | Routin | Status post lumbar | 1 Occurrences | | to Physical Therapy | Referral | e | spinal fusion | starting 05/22/2012 | | | | | | until 07/08/2012 | + + +--------+ + + documented as of this encounter Results XR Lumbar Spine 2 or 3 Vw (06/19/2012 3:19 PM PST) + + | Specimen | + + | | + + + + + | Narrative | Performed At | + + + | [facility] | [place] | | Department [facility] [place] | [facility] | | [ rep ct [phone]] [ rep ct [facility] | | st zip] Signed | - IMAGING | | | | | Patient Name: TREE COLLADO Physician: | | | ARRE. : 1940 Age: 71 Sex: F Unit #: [id number] | | | Exam Date: 06/19/12 Location: [facility] | | | Report #: [id number] Page: | | | %(RAD)RES..mtdd.print.filter("pg") of %(RAD) | | | RES..mtdd.print.filter("tpg") | | | | | | Accession Number: [id number] | | | LUMBAR SPINE CLINICAL HISTORY: [...] Transcribed | | | Date/Time: 06/19/2012 15:31 Space Control Agent: | | | <<Signature on File>> | | | | | | Johnathan Alford MD06/19/12 1720 <Electronically signed by | | | Johnathan Alford MD> Johnathan Alford MD 06/19/12 | | | 1519 Space Control Agent: [employer] [id number]/27/12 1530 | | | Jose Juan Bo MD | | + + + + + + + + | Performing | Address | City/State/Zipcode | Phone Number | | Organization | | | | + + + + + | [facility] | [address] | [place] | [phone] | | [facility] | | [address] | | | - IMAGING | | | | + + + + + documented in this encounter Visit Diagnoses + + | Diagnosis | + + | Status post lumbar spinal fusion - Primary Arthrodesis status | + + documented in this encounter
--- OUTSIDE RECORDS SUMMARY | ~2019-12-13 | XMS | Encounter Summary ---
Demographics + + + | Address | [address] | | | [place] [address] | + + + | Home Phone | | + + + | Preferred Language | Unknown | + + + | Marital Status | | + + + | Jewish Affiliation | 1041 | + + + | Race | Unknown | + + + | Ethnic Group | Unknown | + + + Author + + + | Author | [facility] | | | and [place] | + + + | Organization | [facility] | | [...] [place], [place] | | | | | [address] | | + + + + + | Mercedes Lemus | ECON | [place] | | | | | [address] | | + + + + + Care Team Providers + +------+ + | Care Tax Expert Name | Role | Phone | + +------+ + | Hector Mccoy DO | PCP | | + +------+ + Reason for Visit +---------+ + | Reason | Comments | +---------+ + | Results | | +---------+ + Encounter Details +--------+ + + + + | Date | Type | Department | Care Team | Description | +--------+ + + + + | 11/02/ | Telephone | [facility] | Cecilio Ram | Results | | 2016 | | PHYSIATRY [address] | TMD [address] | | | | | [address] | [place], [place] | | | | | [place], [place] | [address] | | | | | [address] | | | | | | [phone] | | | +--------+ + + + [...]
--- OUTSIDE RECORDS SUMMARY | ~2019-12-13 | XMS | Encounter Summary ---
Demographics + + + | Address | [address] | | | [place] [address] | + + + | Home Phone | | + + + | Preferred Language | Unknown | + + + | Marital Status | | + + + | Episcopal Affiliation | 1041 | + + + | Race | Unknown | + + + | Ethnic Group | Unknown | + + + Author + + + | Author | [facility] | | | and [place] | + + + | Organization | [facility] | | | [...] [place], [place] | | | | | [address] | | + + + + + | Mercedes Lemus | ECON | [place] | | | | | [address] | | + + + + + Care Team Providers + +------+ + | Care Mobile Designer Name | Role | Phone | + [...] | | | | | Chronic | Bogdanowicz, | | | | | | pain of | Ana, | | | | | | right knee | PA-C [address] | | | | | | Procedures | [address], | | | | | | [place] Asp | [address] | | | | | | and/or Inj | [place] | | | | | | Major Joint | [address] | | | | | | Right | Phone: | | | | | | | [phone] | | | | | | | Fax: | | | | | | | [phone] | | +--------+--------+ + + + + Reason for Visit + + + | Reason | Comments | + + + | Back Pain | | + + + Encounter Details +--------+---------+ + + + | Date | Type | Department | Care Team | Description | +--------+---------+ + + + | 04/11/ | Office | [facility] | Bogdakendallcz, | Lumbar radiculopathy | | 2017 | Visit | PHYSIATRY [address] | [address]IA [address] | (Primary Dx); | | | | [address] | [address] | Spinal stenosis of | | | | [place], [place] | [place] [address] | lumbar region with | | | | [address] | [phone] | radiculopathy; S/P | | | | [phone] | | lumbar fusion; | | | | | | Osteoarthritis of | | | | | | spine with | | | | | | radiculopathy, | | | | | | lumbar region; | | | | | | Status post lumbar | | | | | | spinal fusion; | | | | | | Chronic pain of | | | | | | right knee | +--------+---------+ + + + Social History [...] + + + | Blood Pressure | 145/91 | 04/11/2018 10:50 AM | | | | | PDT | | + + + + + | Pulse | 77 | 04/11/2018 10:50 AM | | | [...] Weight | 87.1 kg (192 lb) | 04/11/2018 10:50 AM | | | | | PDT | | + + + + + | Height | 162.6 cm (5' 4") | 04/11/2018 10:50 AM | | | | | PDT | | + + + + + | Body Mass Index | 32.96 | 04/11/2018 10:50 AM | | | | | PDT | | + + + + + documented in this encounter Patient Instructions Patient Instructions Ana Greco PA-C - 04/11/2018 10:40 AM PDTEpidural steroid in jection with Dr. Ram Spinal Stenosis: Stenosis refers to the narrowing of the spinal cord. This most often occurs with age and generative changes of the spine. Narrowing of the spinal cord causes compression and inflam mation of nerves in the lower back and can cause numbness, pain, and weakness in the back, b uttocks and legs. You may notice you have more pain with standing and walking. It feels be tter to walk more bent over at the waist, while pushing a grocery cart or walker. You get r elief with sitting down. Treatment includes pain medicine, gabapentin, transforaminal epidu ral steroid injections to help reduce swelling, physical therapy and surgery. Steroids are a very strong anti-inflammatory, this helps reduce pain by reducing swelling. Complications of steroids are bleeding, infection, and an increase of blood sugars if you are diabetic. MCFP risk can lead to osteoporosis which is why we limited the number of injections to 3 times per year. Epidural injections target the spinal stenosis by putting the steroid around the nerves that come out of the spine with hopes the steroid gets into t he region of the stenosis. The procedure is about 20 minutes long. You will lie on your marco k while x-rays are taken. Once the region is marked, it is numbed and then injected with st eroids. Follow-up at the hospital thirty minutes before [...] of the procedure you must provide a tractor trailer truck driver to take you home. For all procedur es it is recommended that someone else drive you home. documented in this encounter Progress Notes Ana Greco PA-C - 04/11/2018 10:40 AM PDTFormatting of this note might be differe nt from the original. Ana Greco PA-C [address] [facility], [address] [place] [address] FAX: PHYSICAL MEDICINE AND REHABILITATION H&P CHIEF COMPLAINT: Chief Complaint Patient presents with Back Pain HISTORY OF PRESENT ILLNESS: The patient is a 77 y.o. female being seen today in follow up for the complaint of low back pain. The patient has a history of a prior lumbar fusion at L 4-L5, L5-S1 which was performed by Dr. Jose Juan Simmons on May 082011. She has d eveloped adjacent segment disease, a bilateral L4/L5 TFESI was performed by Dr. Yo sanchez on 08/31/2017 giving her over 80% relief for 4 months. She rates the pain as moderate. The symptoms are continuous. She describes the pain as ac bruna, sharp and throbbing. Her symptoms improve with rest and prior injection. Her symptoms worsen with standing,walking for long distances and prolonged sitting. The patient describes leg symptoms that occur on the left side. The leg symptoms account f or greater than or equal to 40% of her symptoms. The leg symptoms are persistent and the sy mptoms travel from the low back to below the knee. The patient does report numbness in the left leg. She does report weakness of the left leg. She fell in January onto her right knee an d now walks with a limp. She received xray of the right knee and was told she has arthritis . She is wondering if she can have a right knee injection performed. The patient does not report any change in bowel or bladder function or saddle anesthesia re cently. She has tried PT, NSAIDS and Braces. [...] tablet Take 20 mg by mouth nightly. ROSUVASTATIN CALCIUM PO Take by mouth. Patient takes medication on Monday, Monday, and Monday zolpidem (AMBIEN) 10 mg tablet Take 5 mg by mouth nightly as needed. No current facility-administered medications for this visit. ALLERGIES: Allergies Allergen Reactions Hydromorphone Nausea And Vomiting REVIEW OF SYSTEMS: A multisystem review of system checklist was reviewed with the patient and shows only the p ain and/or parasthesias and other complaints as in HPI. All remaining review of systems was negative. PHYSICAL EXAMINATION: Vitals: 04/11/18 1050 BP: (!) 145/91 Pulse: 77 PainSc: 3 PainLoc: Back Body mass index is 32.96 kg/m. GENERAL: [...] has no apparent deficits with short or senior living memory. She has appropriate fund of knowledge [...] difficulty. There was no redness, effusion, warmth in the knees or ankles. She does have right medial joint line tenderness. RADIOGRAPHIC REVIEW: The patient's imaging was reviewed [...] Osteoarthritis of spine with radiculopathy, lumbar region Status post lumbar spinal fusion PLAN: 1. The patient has had significant conservative care including medications (NSAIDS and jose roberto cotics), PT (multiple sessions over the years) and ostomy care nurse. Unfortunately she cont inues to have significant discomfort. It appears to me that the pain is primarily coming fr om the adjacent segment disease above the fusion. I did feel that she would be a good andrade date for interventional procedures and I offered bilateral L4-L5 transforaminal epidural [place] roid injections as the next step as this has helped in the past to be done along with a righ t knee steroid injection by Dr. Ram as requested by the patient. 2. The patient has several medications for pain already. I did not make any changes in he r medications today. 3. She will be scheduled for a same day injection the end of July 2018 ELECTRONICALLY EDITED AND SIGNED BY: Ana Greco PA-C, 04/11/2018 documented in t his encounter Plan of Treatment + +---------+--------+ + + | Name | Type | Priori | Associated Diagnoses | Order Schedule | | | | ty | | | + +---------+--------+ + + | FL Asp and/or Inj | Imaging | Routin | Chronic pain of | Expected: | | Major Joint Right | | e | right knee | 04/11/2018, Expires: | | | | | | 04/12/2019 | + +---------+--------+ + + documented as of this encounter Visit Diagnoses + [...] with radiculopathy, lumbar region | + + | Status post lumbar spinal fusion Arthrodesis status | + + | Chronic pain of right knee | + + documented in this encounter
--- OUTSIDE RECORDS SUMMARY | ~2019-12-13 | XMS | Encounter Summary ---
Demographics + + + | Address | [address] | | | [place] [address] | + + + | Home Phone | | + + + | Preferred Language | Unknown | + + + | Marital Status | | + + + | Druze Affiliation | 1041 | + + + | Race | Unknown | + + + | Ethnic Group | Unknown | + + + Author + + + | Author | [facility] | | | and [place] | + + + | Organization | [facility] | | | [...] [place], [place] | | | | | [address] | | + + + + + | Mercedes Lemus | ECON | [place] | | | | | [address] | | + + + + + Care Team Providers + +------+ + | Care Vehicle Painter Name | Role | Phone | + [...] [address] | MD Kelby [address] [place] | spondylolisthesis | | | | [address] | [place] | (Primary Dx) | | | | [place] | [address] | | | | | [address] | [phone] | | | | | [phone] | | | +--------+ + + + [...]
--- OUTSIDE RECORDS SUMMARY | ~2019-12-13 | XMS | Encounter Summary ---
Demographics + + + | Address | [address] | | | [place] [address] | + + + | Home Phone [...] [place], [place] | | | | | [address] | | + + + + + | Mercedes Lemus | ECON | [place] | | | | | [address] | | + + + + + Care Team Providers + +------+ + | Care Out Of School Hours Care Worker Name | Role | Phone | [...] + + + | Closed | | | Diagnoses | | [facility] | | | | | Lumbar | Yo, | [facility] | | | | | radiculopath | Cecilio Ortiz MD | [facility] | | | | | y S/P | [address] | MEDICAL | | | | | lumbar | [place] | CENTER [address] | | | | | fusion | [place], [place] | [place] | | | | | Procedures | [address] | [place], | | | | | MRI Lumbar | Phone: | [place] [address] | | | | | Spine wo | [phone] | Phone: | | | | | Contrast | Fax: | [phone] | | | | | Faxed 10/20 | [phone] | Fax: | | | | | | | [phone] | +--------+--------+ + + + + Reason for Visit + + + | Reason | Comments | + + + | Back Pain | Low back pain that radiates into the left leg | + + + Evaluate & Treat (Routine) +--------+--------+ + + + + | Status | Reason | Specialty | Diagnoses / | Referred By | Referred To | | | | | Procedures | Contact | Contact | +--------+--------+ + + + + | Closed | | Physical | Diagnoses | Nadine, | Yo, | | | | Medicine and | Other | Hector Jameson, | Cecilio Ortiz MD | | | | Rehabilitatio | intervertebr | DO [address] | [address] | | | | n | al disc | [place] | [place] | | | | | degeneration | [place], [place] | [place], [place] | | | | | , lumbar | [address] | [address] Phone: | | | | | region | Phone: | [phone] | | | | | | [phone] | Fax: | | | | | | Fax: | [phone] | | | | | | [phone] | | +--------+--------+ + + + + Encounter Details +--------+---------+ + + + | Date | Type | Department | Care Team | Description | +--------+---------+ + + + | 10/05/ | Office | [facility] | Cecilio Ram | Lumbar radiculopathy | | 2017 | Visit | PHYSIATRY [address] | TMD [address] | (Primary Dx); S/P | | | | [address] | [place] | lumbar fusion; | | | | [place] | [address] | Osteoarthritis of | | | | [address] | | spine with | | | | [phone] | | radiculopathy, | | | | | | lumbar region; | | | | | | Status post lumbar | | | | | | spinal fusion; | | | | | | Spinal stenosis of | | | | | | lumbar region with | | [...] + + + | Blood Pressure | 128/76 | 10/11/2016 11:16 AM | | | | | PDT | | + + + + + | Pulse | 63 | 10/11/2016 11:16 AM | | | | | PDT [...] Weight | 87.1 kg (192 lb) | 10/11/2016 11:16 AM | | | | | PDT | | + + + + + | Height | 162.6 cm (5' 4") | 10/11/2016 11:16 AM | | | | | PDT | | + + + + + | Body Mass Index | 32.96 | 10/11/2016 11:16 AM | | | | | PDT | | + + + + + documented in this encounter Progress Notes Cecilio Ram MD - 10/11/2016 11:17 AM PDT Cecilio Ram MD [address] [facility], [address] [place] [address] FAX: PHYSICAL MEDICINE AND REHABILITATION H&P CHIEF COMPLAINT: Chief Complaint Patient presents with Back Pain Low back pain that radiates into the left leg HISTORY OF PRESENT ILLNESS: The patient is a 76 y.o. female being seen today at the [facility] t of Dr. Ron Mccoy for the complaint of low back pain that began in 1984 when the patien t reports that she was jumping into a pool and twisted wrong when she jumped in noticing imm ediate pain at that time. The symptoms have been gradually worsening. The patient has a his tory of a prior lumbar fusion at L4-L5, L5-S1 which was performed by Dr. Jose Juan Simmons on May 082011. The patient reports 1-2 years of relief following this surgery. She rates the pain as moderate to severe. The symptoms are continuous. She describes the pain as aching, sharp and throbbing. The patient describes leg symptoms that occur on left side. The leg symptoms account for g reater than or equal to 50% of her symptoms. The leg symptoms are persistent and the sympto ms travel from the low back to below [...] Juan Bo as noted above in HPI. PAST MEDICAL HISTORY: Past Medical History Diagnosis Date Hypertension Hyperlipidemia Arthritis Degeneration of intervertebral disc of lumbar region Abnormal kidney function Actinic keratosis Cellulitis of ankle RIGHT Cervical spondylosis Chronic liver disease Lymphadenopathy Type 2 diabetes mellitus (HCC) Dyslipidemia Hypertension, benign Neoplasm Sciatica Seborrheic keratoses Acute sialoadenitis Skin neoplasm UTI (urinary tract infection) Xerosis cutis Miscarriage 1967, 1968,1977 Depression Acute bronchitis Cervical dysphagia Osteoarthritis Diverticulosis History of blood transfusion Facet syndrome Lumbar spondylosis Lumbar radiculopathy S/P lumbar fusion 10/11/2016 Spondylosis of lumbar region without myelopathy or radiculopathy 10/11/2016 PAST SURGICAL HISTORY: Past Surgical History Procedure Laterality Date Total hip arthroplasty 2002 Shoulder arthroplasty Right 2008 Ectopic surgery 1973 Skin lesion resected Tonsillectomy and adenoidectomy Colonoscopy 2013 Lumbar disc surgery 2012 L4-S1 arthrodesis and pedicle screw fixation and decompression Shoulder arthroplasty Left 2009 CURRENT MEDICATIONS: Current Outpatient Prescriptions Medication Sig Dispense Refill atorvaSTATin (LIPITOR) 10 mg tablet Take 10 mg by mouth nightly. calcium carbonate (TUMS) 500 mg chewable tablet Take 1 tablet by mouth Daily. Cholecalciferol (VITAMIN D3) 2000 UNITS CAPS Take 2,000 Units by mouth nightly. cyclobenzaprine (FLEXERIL) 5 MG tablet Take 5 mg by mouth as needed for Muscle spasms. Hydrocodone-Acetaminophen (NORCO PO) Take by mouth. lisinopril (PRINIVIL, ZESTRIL) 20 mg tablet Take 20 mg by mouth Daily. LORazepam (ATIVAN) 1 mg tablet Take 1 tablet by mouth an hour prior to procedure, repea t in 30 minutes if needed. Patient must have a over the road driver. 2 tablet 0 lovastatin (MEVACOR) 20 mg tablet Take 20 mg by mouth Daily (with dinner). meloxicam (MOBIC) 15 mg tablet Take 15 [...] tablet Take 20 mg by mouth nightly. traMADol (ULTRAM) 50 mg tablet Take 50 mg by mouth every 6 hours as needed for Pain. zolpidem (AMBIEN) 10 mg tablet Take 5 mg by mouth nightly as needed. No current facility-administered medications for this visit. ALLERGIES: No Known Allergies SOCIAL HISTORY: The patient reports that she quit smoking about 26 years ago. Her smoking use included Cig arettes. She has a 30 pack-year smoking history. She has never used smokeless tobacco. She r eports that she drinks alcohol. She reports that she does not use illicit drugs. FAMILY HISTORY: Family History Problem Relation Age of Onset Gout Father Colon cancer Father Cancer Mother Alcohol abuse Mother Breast cancer Sister Cancer Sister Bladder Cancer Sister Uterine No Known Problems Child No Known Problems Child Colon cancer Paternal Grandfather No Known Problems Paternal Grandmother Stroke Maternal Grandfather Cancer Maternal Grandmother No Known Problems Paternal Uncle No Known Problems Paternal Aunt No Known Problems Maternal Uncle Cancer Maternal Aunt REVIEW OF SYSTEMS: GENERALLY: No fever, no [...] no rheumatoid arthritis. PHYSICAL EXAMINATION: Blood pressure 128/76, pulse 63, height 1.626 m (5' 4"), weight 87.091 kg (192 lb). Body ma ss index is 32.94 kg/(m^2). GENERAL: The patient is well developed and [...] has no apparent deficits with short or skilled nursing memory. She has appropriate fund of knowledge Cranial nerves 2-12 appear grossly intact. Sensory exam does not show diminished sensation to light touch in the upper and lower extre mities. REFLEX: RIGHT LEFT PATELLAR 1+ 1+ ACHILLES 1+ 1+ PLANTAR Downgoing Downgoing MUSCULOSKELETAL There is no major palpable deformity of the spine. Straight leg raise and slump-sit are negative. Edy's maneuver and impingement testing were negative for any groin pain. There was no tenderness to palpation over the greater tr ochanters or sacral sulci. The patient localized the majority of the pain to the middle of the fusion, possibly as low as the L5-S1 region. Lumbar facet loading was positive especial ly to the left. She also had increased pain with leaning backwards. Strength testing showed 5/5 strength throughout the lower extremities. The patient was able to heel and toe walk wit hout difficulty. There was no redness, effusion, warmth or joint line tenderness in the kne es or ankles. RADIOGRAPHIC REVIEW: The patient's imaging was reviewed personaly by me in detail with the patient during today' s visit. The non-myelogram CT from 05/26/16 shows transitional lumbar anatomy with sacraliza tion of the L5 vertebral body. This makes counting somewhat difficult but the fusion is moon cribed as being from L3-L5 which would suggest counting down from the first non-rib bearing vertebrae. There is severe facet arthritis at the L2-L3 level which appears to result in fa irly severe central canal stenosis, although this is difficult to assess completely in a non -myelogram study. IMPRESSION: Encounter Diagnoses Name Primary? Lumbar radiculopathy Yes S/P lumbar fusion Spondylosis of lumbar region without myelopathy or radiculopathy PLAN: 1. We discussed that she has not had an MRI recently and I don't see an obvious reason why she couldn't have an MRI. I recommend an MRI of the lumbar spine as the next step. An order for this MRI will be placed today. She wishes to have this done in [place] as [place] irena ser to home. 2. Patient reports that she is claustrophobic and does not feel that she can tolerate the M RI machine without a medication for anxiety. The patient was offered a prescription for Ativ an 1 mg which she agrees to try. A prescription for this medication will be called in to the patient's pharmacy today. 3. Further plan of care will be determined after the MRI of the lumbar spine is reviewed. ELECTRONICALLY EDITED AND SIGNED BY: MD Kishan Harris MA-R am personally scribing these notes in presence of Dr. Cecilio almanzar on 10/05/16 documented in this encounter Plan of Treatment + +---------+--------+ + + | Name | Type | Priori | Associated Diagnoses | Order Schedule | | | | ty | | | + +---------+--------+ + + | MRI Lumbar Spine wo | Imaging | Routin | Lumbar | Expected: | | Contrast | | e | radiculopathy S/P | 10/11/2016, Expires: | | | | | lumbar fusion | 10/11/2017 | + +---------+--------+ + + documented as of this encounter Visit Diagnoses + + | Diagnosis | + + | Lumbar radiculopathy - Primary Thoracic or lumbosacral neuritis or radiculitis, | | unspecified | + + | S/P lumbar fusion [...]
--- OUTSIDE RECORDS SUMMARY | ~2019-12-13 | XMS | Encounter Summary ---
Demographics + + + | Address | [address] | | | [place] [address] | + + + | Home Phone | | + + + | Preferred Language | Unknown | + + + | Marital Status | | + + + | Sabianism Affiliation | 1041 | + + + | Race | Unknown | + + + | Ethnic Group | Unknown | + + + Author + + + | Author | [facility] | | | and [place] | + + + | Organization | [facility] | | | [...] [place], [place] | | | | | [address] | | + + + + + | Mercedes Lemus | ECON | [place] | | | | | [address] | | + + + + + Care Team Providers + +------+ + | Care Nuclear Security Officer Name | Role | Phone | + +------+ + | Hector Mccoy DO | PCP | | + +------+ + Reason for Visit +--------+ + | Reason | Comments | +--------+ + | Other | One year post operative update | +--------+ + Encounter Details +--------+ + + + + | Date | Type | Department | Care Team | Description | +--------+ + + + + | 05/14/ | Telephone | [facility] | Jose Juan Bo | Other (One year post | | 2012 | | NEUROSURGERY [address] | F[address] | operative update ) | | | | [address] | [address] [place] | | | | | [place] | [address] | | | | | [address] | [phone] | | | | | [phone] | | | +--------+ + + + [...]
--- OUTSIDE RECORDS SUMMARY | ~2019-12-13 | XMS | Encounter Summary ---
Demographics + + + | Address | [address] | | | [place] [address] | + + + | Home Phone | | + + + | Preferred Language | Unknown | + + + | Marital Status | | + + + | Faith Affiliation | 1041 | + + + [...] [place], [place] | | | | | [address] | | + + + + + | Mercedes Lemus | ECON | [place] | | | | | [address] | | + + + + + Care Team Providers + +------+ + | Care Broach Setter Name | Role | Phone | + +------+ + PCP | Unavailable | + +------+ + Encounter Details +--------+ + + + + | Date | Type | Department | Care Team | Description | +--------+ + + + + | 10/07/ | Hospital | [facility] | Vance Joel | Coronary | | 2010 | Encounter | [facility] | MD [address] | atherosclerosis of | | | | CLINICAL DECISION | Marguerite Lance | [place] coronary | | | | [address] | [place] [address] | artery | | | | [place], [place] | [phone] | | | | | [address] | | | | | | [phone] | | | +--------+ + + + [...] (RUIZ caudal, RUIZ cranial, | | | GERMAN cranial and GERMAN caudal). After this, the injection system was [...] and standard views | | | obtained (GERMAN cranial, RUIZ). After this, the injection system [...] 50 mL. | | | P A HANG/terry/[id number]/ | | | Read by VANCE JOEL DO 10/11/2010 01:08 P Electronically | | | signed by Vance Joel DO on 06/04/2013 2:48 PM | | + + + + + | Procedure Note | + + | Scottie, Niranjan Conversion - 03/16/2019 5:20 PM PDT PREOPERATIVE [...] | | views (RUIZ caudal, RUIZ cranial, GERMAN cranial and GERMAN caudal). After this, | | the injection [...] ostium and standard | | views obtained (GERMAN cranial, RUIZ). After this, the injection system [...] | P | | A | | HANG/terry/[id number]/ | | | | Read by | | VANCE JOEL DO 10/11/2010 01:08 P | | | | | + + documented in this encounter Visit Diagnoses + + | Diagnosis | + + | Coronary atherosclerosis of [place] coronary artery | + + documented in this encounter"
--- OUTSIDE RECORDS SUMMARY | ~2019-12-13 | XMS | Encounter Summary ---
Demographics + + + | Address | [address] | | | [place] [address] | + + + | Home Phone | | + + + | Preferred Language | Unknown | + + + | Marital Status | | + + + | Yarsanism Affiliation | 1041 | + + + [...] [place], [place] | | | | | [address] | | + + + + + | Mercedes Lemus | ECON | [place] | | | | | [address] | | + + + + + Care Team Providers + +------+ + | Care Front Office Associate Name | Role | Phone | + [...] | | fusion | [place], [place] | [place] | | | | | Procedures | [address] | [place], | | | | | MRI Lumbar | Phone: | [place] [address] | | | | | Spine wo | [phone] | Phone: | | | | | Contrast | Fax: | [phone] | | | | | Faxed 10/20 | [phone] | Fax: | | | | | | | [phone] | +--------+--------+ + + + + Reason [...] | | | | , lumbar | [address] | [address] Phone: | | | | | region | Phone: | [phone] | | | | | | [phone] | Fax: | | | | | | Fax: | [phone] | | | | | | [phone] | | +--------+--------+ + + + + Encounter Details +--------+---------+ + + + | Date | Type | Department | Care Team | Description | +--------+---------+ + + + | 10/05/ | Office | [facility] | Cecilio Ram | Lumbar radiculopathy | | 2017 | Visit | PH[address]SIATRY [address] | TMD [address] | (Primary Dx); S/P | | | | [address] | [address] [place] | lumbar fusion; | | | | [place] | [address] | Osteoarthritis of | | | | [address] | | spine with | | | | [phone] | | radiculopathy, | | | | [...] 11:17 AM PDT Cecilio Ram MD [address] [facility], [address] [place] [address] FAX: PHYSICAL MEDICINE AND REHABILITATION H&P CHIEF COMPLAINT: Chief Complaint Patient presents with Back Pain Low back pain that radiates into the left leg HISTORY OF PRESENT ILLNESS: The patient is a 76 y.o. female being seen today at the [facility] t of Dr. Ron Mccoy for the [...] minutes if needed. Patient must have a utility worker driver. 2 tablet 0 lovastatin (MEVACOR) 20 [...] has no apparent deficits with short or correction memory. She has appropriate fund of knowledge [...] She wishes to have this done in [place] as [place] is irena ser to home. [...]
--- OUTSIDE RECORDS SUMMARY | ~2019-12-13 | XMS | Encounter Summary ---
Demographics + + + | Address | [address] | | | [place] [address] | + + + | Home Phone | | + + + | Preferred Language | Unknown | + + + | Marital Status | | + + + | Jain Affiliation | 1041 | + + + | Race | Unknown | + + + | Ethnic Group | Unknown | + + + Author + + + | Author | [facility] | | | and [place] | + + + | Organization | [facility] | | | [...] [place], [place] | | | | | [address] | | + + + + + | Mercedes Lemus | ECON | [place] | | | | | [address] | | + + + + + Care Team Providers + +------+ + | Care Property Worker Name | Role | Phone | + +------+ + | Hector Mccoy DO | PCP | | + +------+ + Reason for Visit Service/Procedure (Urgent) +--------+--------+ + + + + | Status | Reason | Specialty | Diagnoses / | Referred By | Referred To | | | | | Procedures | Contact | Contact | +--------+--------+ + + + + | Closed | | Radiology | Diagnoses | | [facility] | | | | | Lumbar | Yo, | [address] | | | | | radiculopath | Cecilio Ortiz MD | [place], | | | | | y | [address] | [place] | | | | | Procedures | [place] | [address] | | | | | [place] INJECT | [place], [place] | Phone: | | | | | ANES/STEROID | [address] | [phone] | | | | | FORAMEN | Phone: | Fax: | | | | | LUMBAR/SACRA | [phone] | [phone] | | | | | L W IMG | Fax: | | | | | | GUIDE ,1 | [phone] | | | | | | LEVEL NM | | | | | | | TRIAMCINOLON | | | | | | | E ACET INJ | | | | | | | NOS, 10 MG | | | | | | | Bilateral | | | | | | | L4-L5 | | | | | | | TFESI-TODAY | | | +--------+--------+ + + + + Encounter Details +--------+ + + + + | Date | Type | Department | Care Team | Description | +--------+ + + + + | 08/31/ | Hospital | [facility] | Cecilio Ram | Lumbar radiculopathy | | 2018 | Encounter | MED CTR XRAY [address] | T, [address] | | | | | [place] | [place] | | | | | [place] [address] | [address] | | | | | [phone] | | | | | | | Branch Sales ManagerShukri | | | | | [...] +---------+ + + | Blood Pressure | 152/70 | 08/31/2017 2:07 PM | | | | | PST | | + +---------+ + + | Pulse | - | - | | + [...] | [place] EPIDURAL STEROID | Routin | 08/31/2017 | Lumbar | Results for this | | INJECTION LUMBAR | e | 2:34 PM | radiculopathy | procedure are in the | | TRANSFORAMINAL | | PST | | results section. [...] + + | Performing | Address | City/State/[facility] | Phone Number | | Organization | | | | + +---------+ + + | [facility] | | | | + +---------+ + + documented in this encounter Visit Diagnoses + + | Diagnosis | + + | Lumbar radiculopathy Thoracic or lumbosacral neuritis or radiculitis, unspecified | + + documented in this encounter Administered Medications + +--------+ +-------+------+------+ | Medication Order | MAR | Action | Dose | Rate | Site | | | Action | Date | | | | + +--------+ +-------+------+------+ | dexamethasone (PF) 10 mg/mL | Given | 08/31/19 | 15 mg | | | | injection 15 mg 15 mg, Other, | | 18 2:15 | | | | | ONCE, [facility] 08/31/17 at 1430, For 1 | | PM PST | | | | | dose | | | | | | + +--------+ +-------+------+------+ +---+---+ | | | +---+---+ + +-------+ +-------+---+---+ | iohexol (OMNIPAQUE 300) 300 | Given | 08/31/19 | 4 mLs | | | | mg/mL injection 4 mL 4 mL, | | 18 2:10 | | | | | Other, ONCE, [facility] 08/31/17 at 1430, | | PM PST | | | | | For 1 dose | | | | | | + +-------+ +-------+---+---+ +---+---+ | | | +---+---+ + +-------+ +-------+---+---+ | lidocaine (PF) 1% injection 2 | Given | 08/31/19 | 2 mLs | | | | mL 2 mL, Other, ONCE, [facility] 08/31/17 | | 18 2:15 | | | | | at 1430, For 1 dose | | PM PST | | | | + +-------+ +-------+---+---+ +---+---+ | | | +---+---+ + +-------+ +--------+---+ + | lidocaine buffered 1% injection | Given | 08/31/19 | 10 mLs | | Other | | 10 mL 10 mL, Intradermal, ONCE, | | 18 2:05 | | | (Comment | | [facility] 08/31/17 at 1430, For 1 dose | | PM PST | | | ) | + +-------+ +--------+---+ + +---+---+ | | | +---+---+ documented in this encounter"
--- OUTSIDE RECORDS SUMMARY | ~2019-12-13 | XMS | Encounter Summary ---
Demographics + + + | Address | [address] | | | [place] [address] | + + + | Home Phone | | + + + | Preferred Language | Unknown | + + + | Marital Status | | + + + | Anabaptism Affiliation | 1041 | + + + [...] [place], [place] | | | | | [address] | | + + + + + | Mercedes Lemus | ECON | [place] | | | | | [address] | | + + + + + Care Team Providers + +------+ + | Care Assembly Machine Tool Setter Name | Role | Phone | [...] + + | 06/19/ | Office | [facility] | [place] | Scoliosis of lumbar | | 2011 | Visit | NEUROSURGERY [address] | [address] | spine (Primary Dx); | | | | [address] | [address] | Spondylolisthesis of | | | | [place], [place] | [place] [address] | lumbar region; | | | | [address] | [phone] | Degenerative disc | | | | [phone] | | disease, lumbar; | | | [...] differ ent from the original. MARIJA Brooks [address] [place] [address], [address] [place], [place] [id number] FAX: NEUROSURGERY SURGICAL FOLLOW-UP CHIEF COMPLAINT: Chief [...]
--- OUTSIDE RECORDS SUMMARY | ~2019-12-13 | XMS | Encounter Summary ---
Demographics + + + | Address | [address] | | | [place] [address] | + + + | Home Phone | | + + + | Preferred Language | Unknown | + + + | Marital Status | | + + + | Adventist Affiliation | 1041 | + + + | Race | Unknown | + + + | Ethnic Group | Unknown | + + + Author + + + | Author | [facility] | | | and [place] | + + + | Organization | [facility] | | [...] [place], [place] | | | | | [address] | | + + + + + | Mercedes Lemus | ECON | [place] | | | | | [address] | | + + + + + Care Team Providers + +------+ + | Care Suction Drum Drier Operator Name | Role | Phone [...] | | | | | | | [address] | | | | | | | Phone: | | | | | | | [phone] | | | | | | | Fax: | | | | | | | [phone] | | +--------+ + + + + + + + | Scheduling Instructions | + + | PHYSICAL THERAPY: TEACH LUMBAR HYGIENE; SAFETY, ERGONOMICS, MECHANICS, POSTURE, & | | BALANCE FOR 1-2 VISITS. LIFTING LIMITS ARE FOLLOWS: MONTH 1: 5 POUNDS | | MONTH 2: 15-25 POUNDS MONTH 3: 25-30 POUNDS AFTER THAT TOLERATED PLEASE FAX | | RESULTS UPON COMPLETION TO [phone] | + + Reason for Visit + [...] [place] | | | | | | [address] | | | | | | [phone] | | | +--------+ + + + [...] was on Monday. She was taken to [facility] on 05/18/12, and was released that same [...] Performed At | + + + | [facility] | [place] | | Department [facility] [place] | [facility] | | [ rep [address]] [ rep ct [facility] | | st zip] Signed | - IMAGING | | | | | Patient Name: TREE COLLADO Physician: | | | ARRE. : 1940 Age: 71 Sex: F Unit #: [id number] | | | Exam Date: 06/19/12 Location: [facility] | | | Report #: [id number] Page: | | | %(RAD)RES..mtdd.print.filter("pg") of %(RAD) | | | RES..mtdd.print.filter("tpg") | | | | | | Accession Number: [id number] | | | LUMBAR SPINE CLINICAL HISTORY: [...] Transcribed | | | Date/Time: 06/19/2012 15:31 Cafe Worker: | | | <<Signature on File>> | | | | | | Johnathan Alford MD06/19/12 1720 <Electronically signed by | | | Johnathan Alford MD> Johnathan Alford MD 06/19/12 | | | 1519 Cafe Worker: Cadent Tnopoovweeqss90/27/12 1538 | | | Jose Juan Bo MD | | + + + + + + + + | Performing | Address | City/State/Zipcode | Phone Number | | Organization | | | | + + + + + | [address] | [address] | [place] | [phone] | | [facility] | | [address] | | | - IMAGING | | | | + + + + + documented in this encounter Visit Diagnoses + + | Diagnosis | + + | Status post lumbar spinal fusion - Primary Arthrodesis status | + + documented in this encounter
--- OUTSIDE RECORDS SUMMARY | ~2019-12-13 | XMS | Encounter Summary ---
Demographics + + + | Address | [address] | | | [place] [address] | + + + | Home Phone | | + + + | Preferred Language | Unknown | + + + | Marital Status | | + + + | Anabaptist Affiliation | 1041 | + + + | Race | Unknown | + + + | Ethnic Group | Unknown | + + + Author + + + | Author | [facility] | | | and [place] | + + + | Organization | [facility] | | | and [place] | + + + | Address | Unknown | + + + | Phone | Unavailable | + + + Support + + + + + | Name | Relationship | Address | Phone | + + + + + | Law Collado | ECON | [address] | | | | | [place], [place] | | | | | [address] | | + + + + + | Mercedes Lemus | ECON | [place] | | | | | [address] | | + + + + + Care Team Providers + +------+ + | Care Outside Industrial Sales Representative Name | Role | Phone | + +------+ + PCP | Unavailable | + +------+ + Encounter Details +--------+ + + + + | Date | Type | Department | Care Team | Description | +--------+ + + + + | 05/10/ | Hospital | [facility] | Delbert Castro | | | 2011 - | Encounter | MED CTR IRF [address] | [address] | | | | | [employer] [place], | [place] [facility] [place] | | | 05/16/ | | [place] [address] | [place] [address] | | | 2011 | | [phone] | [phone] | | | | | | | [...] documented as of this encounter Discharge Summaries Delbert Castro MD - 05/16/2012 11:09 AM [facility] [place] [id number] Patient Name: TREE COLLADO Provider: Fercho Castro MD [id number] 1940 ADMISSION DATE: 05/10/2012 DISCHARGE DATE: 05/16/2012 DISCHARGE DIAGNOSES 1. LUMBAR STENOSIS WITH L4 THROUGH S1 DECOMPRESSION, FUSION AND ARTHRODESIS, WITH LEFT ANK LE WEAKNESS. 2. URINARY RETENTION. 3. OBESITY. 4. DIABETES. 5. BILATERAL KNEE OSTEOARTHRITIS. 6. DELIRIUM. HISTORY: This 71-year-old woman had progressive back and left leg pain and weakness, refra ctory to conservative treatment. Thus, on 05/07/2012, Jose Juan Bo MD, did an L4 t hrough S1 arthrodesis and pedicle screw fixation and decompression, with excellent benefit. Postoperatively, she had problems with left leg pain and weakness, with comorbid issues of obesity, diabetes and transient delirium. Thus, once she was medically ready, she was magaña sferred to [facility] for further rehabilitation o n 05/11/2012. She was minimal assistance for lower body dressing, moderate assistance in to ileting and in and out of bed, prior to admission to rehabilitation. PERTINENT POSITIVES ON PHYSICAL EXAMINATION ON ADMISSION: Shoulder strength 4, elbow stren gth and airconditioning plant operator 4+, right hip strength 3, left hip 2+, right knee 4, left 4-, right ankle 4, l eft 2+. She could feel light touch in the lower extremities. She was slightly sedated, but could follow 1- and 2-step commands, and knew approximately the right date, as well as the name of the hospital. This is consistent with the resolving delirium. HOSPITAL COURSE: Overall, she did very well and is able to be discharged home in [facility] care actually sooner than I expected. Her delirium resolved through adjustment of the medications. No significant problems with her diabetes during her hospitalization. Blood sugars 103 thr ough 141 shortly before discharge. Followup labs showed hemoglobin still good at 13.3. WBC normal 8.9. Sodium 136, potassium 4.1, BUN 8. Creatinine 0.65. Urinalysis on admission nega tive for any sign of infection. Blood pressure was good in the 118 through 148 range, heart rate in the 70s to 90s. O2 saturations 93% on room air. No incontinence of bowel and bladd er during hospitalization. Good fluid intake. She reported significant osteoarthritis of her knees, but it was not a serious barrier dur ing therapies in that she did not have a flare-up. Her obesity did slow her rehab some. BMI is about 35, so it is not morbid obesity, but it still was more of a minor barrier. She had some mild urinary retention initially, with a PVR of 320 mL, but this resolved. It was down to 75 mL by discharge. Shortly before discharge, right hip strength 3+, knee 4+, ankle 4, left hip 3+, knee 4, an kle 3. She could feel light touch in the lower extremities. She was oriented x3 and alert. THERAPIES: By discharge the patient was modified independent in bed mobility, transfers an d gait over 150 feet with a front-wheel walker, as well as standby to modified independent in dressing. came in for training and is able to manage her at the level of [facility], and thus she was able to be discharge home to [place] about 2 days earlier than I expe cted. On discharge the patient did not want home health nor did she want outpatient therapies, s aying she was tired of getting therapies. In discussing with PT, they thought that was acce ptable, given her high level of function. The gait was over 150 feet, 200 to 300 feet. DISCHARGE MEDICATIONS 1. Flexeril 10 mg t.i.d. p.r.n. 2. Lortab 7.5/325, dispensed #60, 1 to 2 q 4 hours p.r.n. 3. Lovastatin 20 mg daily. 4. Metformin 500 mg daily. 5. Paxil 20 mg in the morning. 6. Prinivil 20 mg in the morning. 7. Zolpidem 10 mg at bedtime p.r.n. 8. Detrol 2 mg twice a day. 9. Percocet 7.5/325, 1 to 2 tablets q 4 to 6 hours for severe pain. She was given #50 of t he Percocet. 10. Gaston for more moderate pain. FOLLOWUP: Follow up with Ron Mccoy DO, in approximately 2 weeks. No home health or ou tpatient therapies are set up, the patient did not feel she needed them or wanted them. Fol low up with Dr. Bo in 3 weeks. DICTATED BY: Fercho Castro MD, PHD Physiatry JOB #: [id number] EXT JOB #:[id number] cc: Ron Mccoy, DO Jose Juan Bo MD <<Signature on File>> Fercho Castro MD05/16/12 9022 < documented in this encounter Plan of Treatment Not on filedocumented as of this encounter Procedures + +--------+ + + + | Procedure Name | Priori | Date/Time | Associated Diagnosis | Comments | | | ty | | | | + +--------+ + + + | URINALYSIS, REFLEX | Routin | 05/11/2012 | | Results for this | | MICROSCOPIC AND/OR | e | 6:27 PM | | procedure are in the | | CULTURE | | PDT | | results section. | + +--------+ + + + | CBC WITH | Routin | 05/11/2012 | | Results for this | | DIFFERENTIAL | e | 7:01 AM | | procedure are in the | | | | PDT | | results section. | + +--------+ + + + | BASIC METABOLIC | Routin | 05/11/2012 | | Results for this | | PANEL | e | 7:01 AM | | procedure are in the | | | | PDT | | results section. | + +--------+ + + + | UA, MICROSCOPIC, | Routin | 05/10/2012 | | Results for this | | REFLEX | e | 9:18 PM | | procedure are in the | | | | PDT | | results section. | + +--------+ + + + | URINALYSIS, REFLEX | Routin | 05/10/2012 | | Results for this | | MICROSCOPIC AND/OR | e | 9:18 PM | | procedure are in the | | CULTURE | | PDT | | results section. | + +--------+ + + + documented in this encounter Results Urinalysis, Reflex Microscopic and/or Culture (05/11/2012 6:27 PM PDT) + + + + + + | Component | Value | Ref Range | Performed | Pathologist | | | | | At | Signature | + + + + + + | COLLECTION | VOID | | [facility] | | | METHOD [...] + + | Specific | 1.015 | 1.001 - 1.030 | [facility] | | | [place], | | | [facility] | | [...] + + + | pH, Urine | 6.0 | 5.0 - 8.0 | [facility] | [...] + | [facility] | [address] | [place], [place] | [phone] | | [facility] | | [address] | | | - LABORATORY | | | | + + + + + | [facility] | [address] | [place] | | | [facility] | | [address] [place] [place] [address] | | | - LABORATORY | | | | + + + + + CBC with Differential (05/11/2012 7:01 AM PDT) + + + + + + | Component | Value | Ref Range | Performed | Pathologist | | | | | At | Signature | + + + + + + | MANUAL | NO | | [facility] | | | DIFFERENTIA | | | [facility] | | | L ? | | | MEDICAL | | | | | | CENTER - | | | | | | LABORATORY | | + + + + + + | WBC | 8.9 | 4.0 - 11.0 K/uL | [facility] | | | | | | [facility] | | | | | | MEDICAL | | | | | | CENTER - | | | | | | LABORATORY | | + + + + + + | RBC | 3.95 | 3.70 - 5.20 | [facility] | | | | | M/uL | [facility] | | | | | | MEDICAL | | | | | | CENTER - | | | | | | LABORATORY | | + + + + + + | Hemoglobin | 13.3 | 11.5 - 16.0 | [facility] | | | | | gm/dL | [facility] | | | | | | MEDICAL | | | | | | CENTER - | | | | | | LABORATORY | | + + + + + + | Hematocrit | 38.6 | 34.0 - 47.0 % | [facility] | | | | | | [facility] | | | | | | MEDICAL | | | | | | CENTER - | | | | | | LABORATORY | | + + + + + + | MCV | 98.0 | 83.0 - 101.0 fL | [facility] | | | | | | [facility] | | | | | | MEDICAL | | | | | | CENTER - | | | | | | LABORATORY | | + + + + + + | MCH | 33.6 | 28.0 - 35.0 pg | [facility] | | | | | | [facility] | | | | | | MEDICAL | | | | | | CENTER - | | | | | | LABORATORY | | + + + + + + | MCHC | 34.3 | 32.0 - 36.0 | [facility] | | | | | g/dL | [facility] | | | | | | MEDICAL | | | | | | CENTER - | | | | | | LABORATORY | | + + + + + + | RDW-CV | 13.6 | <15.0 % | [facility] | | | | | | [facility] | | | | | | MEDICAL | | | | | | CENTER - | | | | | | LABORATORY | | + + + + + + | Platelet | 257 | 140 - 440 K/uL | [facility] | | | Count | | | [facility] | | | | | | MEDICAL | | | | | | CENTER - | | | | | | LABORATORY | | + + + + + + | % | 68.0 | 45 - 75 % | [facility] | | | Neutrophils | | | [facility] | | | | | | MEDICAL | | | | | | CENTER - | | | | | | LABORATORY | | + + + + + + | % | 14.2 (L) | 20 - 45 % | [facility] | | | Lymphocytes | | | [facility] | | | | | | MEDICAL | | | | | | CENTER - | | | | | | LABORATORY | | + + + + + + | % Monocytes | 11.9 | 4 - 12 % | [facility] | | | | | | [facility] | | | | | | MEDICAL | | | | | | CENTER - | | | | | | LABORATORY | | + + + + + + | % | 5.5 (H) | 0 - 5 % | [facility] | | | Eosinophils | | | [facility] | | | | | | MEDICAL | | | | | | CENTER - | | | | | | LABORATORY | | + + + + + + | % Basophils | 0.4 | 0 - 1 % | [facility] | | | | | | [facility] | | | | | | MEDICAL | | | | | | CENTER - | | | | | | LABORATORY | | + + + + + + | Absolute | 6.0 | 1.5 - 6.6 K/uL | [facility] | | | Neutrophils | | | [facility] | | | | | | MEDICAL | | | | | | CENTER - | | | | | | LABORATORY | | + + + + + + | Absolute | 1.3 | 0.6 - 3.2 K/uL | [facility] | | | Lymphocytes | | | [facility] | | | | | | MEDICAL | | | | | | CENTER - | | | | | | LABORATORY | | + + + + + + | Absolute | 1.1 (H) | 0.0 - 1.0 K/uL | [facility] | | | Monocytes | | | [facility] | | | | | | MEDICAL | | | | | | CENTER - | | | | | | LABORATORY | | + + + + + + | Absolute | 0.5 (H) | 0.0 - 0.4 K/uL | [facility] | | | Eosinophils | | | [facility] | | | | | | MEDICAL | | | | | | CENTER - | | | | | | LABORATORY | | + + + + + + | Absolute | 0.0 | 0.0 - 0.1 K/uL | [facility] | | | Basophils | | | [facility] | | [...] | [facility] | [address] | [place] | [phone] | | [facility] | | [address] | | | - LABORATORY | | | | + + + + + | [facility] | [address] | [place] | | | [facility] | | [id number] | | | - LABORATORY | | | | + + + + + Basic Metabolic Panel (05/11/2012 7:01 AM PDT) + + + + + + | Component | Value | Ref Range | Performed | Pathologist | | | | | At | Signature | + + + + + + | Glucose | 99 | 70 - 109 mg/dL | [facility] | | | | | | [facility] | | | | | | MEDICAL | | | | | | CENTER - | | | | | | LABORATORY | | + + + + + + | Calcium | 8.4 | 8.3 - 10.5 | [facility] | | | | | mg/dL | [facility] | | | | | | MEDICAL | | | | | | CENTER - | | | | | | LABORATORY | | + + + + + + | BUN | 8 | 7 - 18 mg/dL | [facility] | | | | | | [facility] | | | | | | MEDICAL | | | | | | CENTER - | | | | | | LABORATORY | | + + + + + + | Creatinine | 0.65 | 0.60 - 1.30 | [facility] | | | | | mg/dL | [facility] | | | | | | MEDICAL | | | | | | CENTER - | | | | | | LABORATORY | | + + + + + + | Estimated | >60Comment: For | >60 mL/min/A | [facility] | | | GFR | -Americans, | | [facility] | | | | please multiply the [...] + + + + | BUN/Creatin | 12.3 | 12 - 20 | [facility] | | | ine Ratio | | | [facility] | | | | | | MEDICAL | | | | | | CENTER - | | | | | | LABORATORY | | + + + + + + | Na | 136 | 136 - 149 mEq/L | [facility] | | | | | | [facility] | | | | | | MEDICAL | | | | | | CENTER - | | | | | | LABORATORY | | + + + + + + | K | 4.1 | 3.5 - 5.1 mEq/l | [facility] | | | | | | [facility] | | | | | | MEDICAL | | | | | | CENTER - | | | | | | LABORATORY | | + + + + + + | Cl | 99 | 98 - 109 mEq/l | [facility] | | | | | | [facility] | | | | | | MEDICAL | | | | | | CENTER - | | | | | | LABORATORY | | + + + + + + | CO2 | 31 | 24 - 31 mEq/L | [facility] | | | | | | [facility] | | | | | | MEDICAL | | | | | | CENTER - | | | | | | LABORATORY | | + + + + + + | Anion Gap | 10.1 | 6.0 - 17.0 | [facility] | [...] + | [facility] | [address] | [place], [place] | [phone] | | [facility] | | [address] | | | - LABORATORY | | | | + + + + + | [facility] | [address] | [place], [place] | | | [facility] | | [address], [facility] | | | - LABORATORY | | | | + + + + + Bam NAJERA, Serafin (05/10/2012 9:18 PM PDT) + + + + + + | Component | Value | Ref Range | Performed | Pathologist | | | | | At | Signature | + + + + + + | White Blood | 0-2 | 0 - 1 /hpf | [facility] | | | Cells, | | | [facility] | | | Urine | | | MEDICAL | | | | | | CENTER - | | | | | | LABORATORY | | + + + + + + | Red Blood | NONE | 0 - 4 /hpf | [facility] | | | Cells, | | | [facility] | | | Urine | | | MEDICAL | | | | | | CENTER - | | | | | | LABORATORY | | + + + + + + | Squamous | FEW | FEW /hps | [facility] | | | Epithelial | | | [facility] | | | Cells, | | | MEDICAL | | | Urine | | | CENTER - | | | | | | LABORATORY | | + + + + + + | Bacteria, | MODERATE | NONE /hpf | [facility] | | | Urine | | | [facility] | | | | | | MEDICAL | | | | | | CENTER - | | | | | | LABORATORY | | + + + + + + | Culture | NO | | [facility] | | | Indicated | | | [facility] | | [...] | [facility] | [address] | [place] | [phone] | | [facility] | | [address] | | | - LABORATORY | | | | + + + + + | [facility] | [address] | [place] | | | [facility] | | [address], [facility] | | | - LABORATORY | | | | + + + + + Urinalysis, Reflex Microscopic and/or Culture (05/10/2012 9:18 PM PDT) + + + + + + | Component | Value | Ref Range | Performed | Pathologist | | | | | At | Signature | + + + + + + | COLLECTION | VOID | | [facility] | | | METHOD 1 | | | [facility] | | | | | | MEDICAL | | | | | | CENTER - | | | | | | LABORATORY | | + + + + + + | Color, | KELLI | | [facility] | | | Urine | | | [facility] | | | | | | MEDICAL | | | | | | CENTER - | | | | | | LABORATORY | | + + + + + + | Clarity | HAZY | | [facility] | | | | [...] + + + + | Specific | 1.010 | 1.001 - 1.030 | [facility] | | | [place], | | | [facility] | | [...] + + + | pH, Urine | 7.0 | 5.0 - 8.0 | [facility] | [...] + + + + | Nitrite, | POSITIVE | NEGATIVE | [facility] | | | Urine | | | [facility] | | | | | | MEDICAL | | | | | | CENTER - | | | | | | LABORATORY | | + + + + + + | Leukocyte | TRACE | NEGATIVE | [facility] | | | Esterase, | | | [facility] | | | Urine | | | MEDICAL | | | | | | CENTER - | | | | | | LABORATORY | | + + + + + + | MICROSCOPIC | YES | | [facility] | | | ? [...] + | [facility] | [address] | [place], [place] | [phone] | | [facility] | | [address] | | | - LABORATORY | | | | + + + + + | [facility] | [address] | [place], [place] | | | [facility] | | [id number] [place] [address] | | | - LABORATORY | | | | + + + + + documented in this encounter Visit Diagnoses Not on filedocumented in this encounter"
--- OUTSIDE RECORDS SUMMARY | ~2019-12-13 | XMS | Encounter Summary ---
Demographics + + + | Address | [address] | | | [place] [address] | + + + | Home Phone [...] + + | Author | [facility] | | | and [place] | + + + | Organization | [facility] | | | and [place] | + [...] [place], [place] | | | | | [address] | | + + + + + | Mercedes Lemus | ECON | [place] | | | | | [address] | | + + + + + Care Team Providers + +------+ + | Care Surgical Garment Fitter Name | Role | Phone | + +------+ + | Hector Mccoy DO | PCP | | + +------+ + Reason for Visit Service/Procedure (Routine) +--------+--------+ [...] | Lumbar | [place], | [address] | | | | | radiculopath | Cecilio Ortiz MD | [facility], | | | | | y | [address] | [place] | | | | | Procedures | [place] | [address] | | | | | DE INJECT | [place], [place] | Phone: | | | | | ANES/STEROID | [address] | [phone] | | | | | FORAMEN | Phone: | Fax: | | | | | LUMBAR/SACRA | [phone] | [phone] | | | | | L W IMG | Fax: | | | | | | GUIDE ,1 | [phone] | | | | | | LEVEL DE | | | | | | | TRIAMCINOLON | | | | | | | E ACET INJ | | | | | | | NOS, 10 MG | | | | | | | Appt: 04/05 | | | | | | | -Left L4/5 | | | | | | | TFESI | | | +--------+--------+ + + + + Encounter Details +--------+ + + + + | Date | Type | Department | Care Team | Description | +--------+ + + + + | 04/05/ | [facility] | [facility] | Cecilio Ram | Lumbar radiculopathy | | 2017 | Encounter | MED CTR XRAY [address] | T, [address] | | | | | [place] | [facility] [place] [address] | | | | | [place] [address] | [address] | | | | | [phone] | | | | | | | Back Roll Lathe OperatorShukri | | | | | | bac[place] | | +--------+ + + + + [...] +---------+ + + | Blood Pressure | 176/84 | 04/05/2017 4:20 PM | | | | | PDT [...] | FL EPIDURAL STEROID | Routin | 04/05/2017 | Lumbar | Results for this | | INJECTION LUMBAR | e | 4:02 PM | radiculopathy | procedure are in the | | TRANSFORAMINAL | | PDT | | results section. | + +--------+ + + + documented in this encounter Results FL ELOISA Lumbar Transforaminal (04/05/2017 4:02 PM PDT) + + | Specimen | + + | | + + + + + | Narrative | Performed At | + + + | 04/05/2017 | [facility] | | Transforaminal Epidural Steroid InjectionDiagnosis: Lumbar | [facility] | | radiculopathyICD-10 Code M54.16 Mary Collado presents to the | [facility] | | fluoroscopy suite for a fluoroscopically-guided [...] ST. | [address] | [place] | [phone] | | [facility] | | [address] | | | - IMAGING | | [...] dexamethasone (PF) 10 mg/mL | Given | 04/05/20 | 20 mg | | | | injection 20 mg 20 mg, | | 17 4:12 | | | | | Intra-articular, ONCE, Wed | | PM PDT | | | | | 04/05/17 at 1615, For 1 dose | | | | | | + +--------+ +-------+------+------+ +---+---+ | | | +---+---+ + +-------+ +-------+---+---+ | iohexol (OMNIPAQUE 300) 300 | Given | 04/05/20 | 4 mLs | | | | mg/mL injection 4 mL 4 mL, | | 17 4:10 | | | | | INTRATHECAL, ONCE, 04/05/17 at | | PM PDT | | | | | 1615, For 1 dose | | | | | | + +-------+ +-------+---+---+ +---+---+ | | | +---+---+ + +-------+ +-------+---+---+ | lidocaine (PF) 1% injection 2 | Given | 04/05/20 | 2 mLs | | | | mL 2 mL, Other, ONCE, Wed | | 17 4:12 | | | | | 04/05/17 at 1615, For 1 dose | | PM PDT | | | | + +-------+ +-------+---+---+ +---+---+ | | | +---+---+ + +-------+ +--------+---+ + | lidocaine buffered 1% injection | Given | 04/05/20 | 10 mLs | | Other | | 10 mL 10 mL, Intradermal, ONCE, | | 17 4:08 | | | (Comment | | 04/05/17 at 1615, For 1 dose | | PM PDT | | | ) | + +-------+ +--------+---+ + +---+---+ | | | +---+---+ documented in this encounter"
--- OUTSIDE RECORDS SUMMARY | ~2019-12-13 | XMS | Encounter Summary ---
Demographics + + + | Address | [address] | | | [place] [address] | + + + | Home Phone | | + + + | Preferred Language | Unknown | + + + | Marital Status | | + + + | Scientology Affiliation | 1041 | + + + | Race | Unknown | + + + | Ethnic Group | Unknown | + + + Author + + + | Author | [facility] | | | and [place] | + + + | Organization | [facility] | | | [...] [place], [place] | | | | | [address] | | + + + + + | Mercedes Lemus | ECON | [place] | | | | | [address] | | + + + + + Care Team Providers + +------+ + | Care Professor Of Early Childhood Education Name | Role | Phone | + [...] + + | 11/02/ | Telephone | [facility] | Cecilio Ram | Results | | 2016 | | PHYSIATRY [address] | [address] | | | | | [address] | [place], [place] | | | | | [place], [place] | [address] | | | | | [address] | | | | | | [phone] | | | +--------+ + + + [...]
--- OUTSIDE RECORDS SUMMARY | ~2019-12-13 | XMS | Encounter Summary ---
Demographics + + + | Address | [address] | | | [place] [address] | + + + | Home Phone | | + + + | Preferred Language | Unknown | + + + | Marital Status | | + + + | Yazidism Affiliation | 1041 | + + + | Race | Unknown | + + + | Ethnic Group | Unknown | + + + Author + + + | Author | [facility] | | | and [place] | + + + | Organization | [facility] | | | and [...] [place], [place] | | | | | [address] | | + + + + + | Mercedes Lemus | ECON | [place] | | | | | [address] | | + + + + + Care Team Providers + +------+ + | Care Carpenters Supervisor Name | Role | Phone | + +------+ + | Martell Hilario NP | PCP | | + +------+ + Reason for Visit + + + | Reason | Comments | + + + | Hyperglycemia | | + + + Encounter Details +--------+ + + + + | Date | Type | Department | Care Team | Description | +--------+ + + + + | 04/17/ | Telephone | [facility] | Cecilio Ram | Hyperglycemia | | 2018 | | PHYSIATRY [address] | [address] | | | | | [address] | [place] | | | | | [place] | [address] | | | | | [address] | | | | | | [phone] | | | +--------+ + + + [...]
--- OUTSIDE RECORDS SUMMARY | ~2019-12-13 | XMS | Encounter Summary ---
Demographics + + + | Address | [address] | | | [place] [address] | + + + | Home Phone | | + + + | Preferred Language | Unknown | + + + | Marital Status | | + + + | Congregation Affiliation | 1041 | + + + | Race | Unknown | + + + | Ethnic Group | Unknown | + + + Author + + + | Author | [facility] | | | and [place] | + + + | Organization | [facility] | | | [...] [place], [place] | | | | | [address] | | + + + + + | Mercedes Lemus | ECON | [place] | | | | | [address] | | + + + + + Care Team Providers + +------+ + | Care Pediatrician Managing Partner Name | Role | Phone | + [...] + + | 09/01/ | Telephone | [facility] | Cecilio Ram | Injections | | 2017 | | PHYSIATRY [address] | [address] | | | | | [address] | [place], [place] | | | | | [place], [place] | [address] | | | | | [address] | | | | | | [phone] | | | +--------+ + + + [...]
--- OUTSIDE RECORDS SUMMARY | ~2019-12-13 | XMS | Encounter Summary ---
Demographics + + + | Address | [address] | | | [place] [address] | + + + | Home Phone | | + + + | Preferred Language | Unknown | + + + | Marital Status | | + + + | Gnosticism Affiliation | 1041 | + + + [...] [place], [place] | | | | | [address] | | + + + + + | Mercedes Lemus | ECON | [place] | | | | | [address] | | + + + + + Care Team Providers + +------+ + | Care Radiologic Technology Teacher Name | Role | Phone | + +------+ + PCP | Unavailable | + +------+ + Encounter Details +--------+ + + + + | Date | Type | Department | Care Team | Description | +--------+ + + + + | 03/21/ | Hospital | [facility] | Jose Juan Bo | | | 2011 | Encounter | MED CTR LABORATORY | MD Kelby [address] | | | | | [address] [place] | [address] [place], [place] | | | | | [place], [place] | [address] | | | | | [address] | [phone] | | | | [phone] | | | +--------+ + + + [...] + | [facility] | [address] | [place] | [phone] | | [facility] | | [address] | | | - LABORATORY | | [...] + | [facility] | [address] | [place], [place] | [phone] | | [facility] | | [address] | | | - LABORATORY | | | | + + + + + | [facility] | [address] | [place], [place] | | | [facility] | | [address], [facility] | | | - LABORATORY | | [...] [address] | [place] | [phone] | | [facility] | | [address] | | | - LABORATORY | | | | + + + + + | [facility] | [address] | [place] | | | [facility] | | [address], [facility] | | | - LABORATORY | | [...] 7 | 7 - 18 mg/dL | [facility] | | | | | | Swapna [...] + | [facility] | [address] | [place], [place] | [phone] | | [facility] | | [address] | | | - LABORATORY | | | | + + + + + | [facility] | [address] | [place], [place] | | | [facility] | | [address], [facility] | | | - LABORATORY | | [...] + + | Performing | Address | City/State/[facility] | Phone Number | | Organization | | | | + + + + + | [facility] | [address] | [place] | [phone] | | [facility] | | [address] | | | - LABORATORY | | | | + + + + + | [facility] | [address] | [place] | | | [facility] | | [address], [facility] | | | - LABORATORY | | | | + + + + + documented in this encounter Visit Diagnoses Not on filedocumented in this encounter"
--- OUTSIDE RECORDS SUMMARY | ~2019-12-13 | XMS | Encounter Summary ---
Demographics + + + | Address | [address] | | | [place] [address] | + + + | Home Phone | | + + + | Preferred Language | Unknown | + + + | Marital Status | | + + + | Protestant Affiliation | 1041 | + + + | Race | Unknown | + + + | Ethnic Group | Unknown | + + + Author + + + | Author | [facility] | | | and [place] | + + + | Organization | 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 For all procedur es it is recommended that someone else drive you home. documented in this encounter Progress Notes Cecilio Ram MD - 08/31/2017 9:30 AM PST Cecilio Ram MD [address] [place] [address], [address] [place] [address] FAX: PHYSICAL MEDICINE AND REHABILITATION H&P CHIEF [...] has no apparent deficits with short or superintendent terminal memory. She has appropriate fund of knowledge [...] increased pain with leaning backwards. Strength testi showed 5/5 strength throughout the lower extremities. [...] | | radiculopathy ICD-10 Code M54.16 Mary oCllado presents to the | | | fluoroscopy [...]
--- OUTSIDE RECORDS SUMMARY | ~2019-12-13 | XMS | Encounter Summary ---
Demographics + + + | Address | [address] | | | [place] [address] | + + + | Home Phone [...] [place], [place] | | | | | [address] | | + + + + + | Mercedes Lemus | ECON | [place] | | | | | [address] | | + + + + + Care Team Providers + +------+ + | Care Sharepoint Designer Developer Name | Role | Phone | + [...] | | | [address] [place] | [place] [address] | | | | | [place] [address] | | | | | | [phone] | | | +--------+ + + + [...]
--- OUTSIDE RECORDS SUMMARY | ~2019-12-13 | XMS | Encounter Summary ---
Demographics + + + | Address | [address] | | | [place] [address] | + + + | Home Phone | | + + + | Preferred Language | Unknown | + + + | Marital Status | | + + + | Islam Affiliation | 1041 | + + + | Race | Unknown | + + + | Ethnic Group | Unknown | + + + Author + + + | Author | [facility] | | | and [place] | + + + | Organization | [facility] | | | [...] [place], [place] | | | | | [address] | | + + + + + | Mercedes Lemus | ECON | [place] | | | | | [address] | | + + + + + Care Team Providers + +------+ + | Care Typewriter Tester Name | Role | Phone | + +------+ + | Hector Mccoy DO | PCP | | + +------+ + Encounter Details +--------+ + + + + | Date | Type | Department | Care Team | Description | +--------+ + + + + | 11/05/ | Hospital | [facility] | Jose Juan Bo | Status post lumbar | | 2012 | Encounter | MED CTR XRAY [address] | FMD [address] | spinal fusion | | | | [place] | [place], [place] | | | | | [place] [address] | [address] | | | | | [phone] | [phone] | | | | | | | [...] Performed At | + + + | [facility] | [facility] | | Department [address] [facility] | [facility] | | [ rep ct street[address]] [ rep [facility] | | [facility]] Signed | - IMAGING | | | | | Patient Name: TREE COLLADO Physician: | | | ARRE.01 : 1940 Age: 72 Sex: F Unit #: [id number] | | | Exam Date: 11/05/12 Location: [facility] | | | Report #: [id number] Page: | | | %(RAD)RES..mtdd.print.filter("pg") of %(RAD) | | | RES..mtdd.print.filter("tpg") | | | | | | Accession Number: [id number] | | | LUMBAR SPINE LIMITED X-RAY, [...] Transcribed Date/Time: | | | 11/05/2012 11:58 Mail Clerks Supervisor: | | | <<Signature on File>> | | | Parker | | | Gisell Deluna MD11/05/12 1944 <Electronically signed by Parker Jameson | | | Regi LOPEZ> Parker Deluna MD 11/05/12 110 | | | Mail Clerks Supervisor: Lubna Eofhygqpxryhi00/15/13 0178 | | | Jose Juan Bo MD | | + + + + + + + + | Performing | Address | City/State/Zipcode | Phone Number | | Organization | | | | + + + + + | [facility] | [address] | [place] | [phone] | | [facility] | | [address] | | | - IMAGING | | | | + + + + + documented in this encounter Visit Diagnoses + + | Diagnosis | + + | Status post lumbar spinal fusion Arthrodesis status | + + documented in this encounter
--- OUTSIDE RECORDS SUMMARY | ~2019-12-13 | XMS | Encounter Summary ---
Demographics + + + | Address | [address] | | | [place] [address] | + + + | Home Phone [...] [place], [place] | | | | | [address] | | + + + + + | Mercedes Lemus | ECON | [place] | | | | | [address] | | + + + + + Care Team Providers + +------+ + | Care Trolley Wire Installer Name | Role | Phone | [...] + + | 08/03/ | Emergency | [facility] | Parker Arellano, | Cough (Primary Dx); | | 2019 | | MEDICAL CENTER | [address] | Rib pain on right | | | | EMERGENCY CENTER | [place] [address] | side | | | | [address] | [phone] | | | | | [place], [place] | | | | | | [address] | | | | | | [phone] | | | +--------+ + + + [...] through Care Everywhere.Chest Pain, Unc ertain Cause (Comoran)Cough, Chronic, Uncertain Cause (Adult) (Comoran)documented in this en counter Medications at Time [...] of this encounter Plan of Treatment + +------+--------+ + + [...] - | | | | | | 2019 | | | 11:13 | | | [...] | | | FICATI | | | ON?/ | | | | | | 0 | | | 12? | | | BANDUC | | | CI, | | | MARILO | | | U?MRN: | | | | | | [id number] | | | [id number] | | | riteri | | | [...] | | | St. | | | [place] | | | y | | | [...] | | | St | | | [place] | | | y | | | [...] St | | | | | | [place] | | | y | | | [...] | | | St. | | | [place] | | | y | | | [...] | | | St. | | | [place] | | | y H. | | [...] | | | St. | | | [place] | | | y H. | | [...] | | | St. | | | [place] | | | y H. | | [...] | | | St. | | | [place] | | | y H. | | [...] | | | St. | | | [place] | | | y H. | | [...] | | [place] | | | R, BREAST SURGEON | | | Nurse | | | [...] | | | n | | | [place] | | | | | | Orthop [...] | | | | Signed by: Christiano Aldana, Joe | | Sign Date/Time: 08/03/2019 1:08 PM [...] - 1.030 | [facility] | | | [place], | | | LABORATORY | | | [...] | | | Urine | performed at [facility] | | LABORATORY | | | | [address];[place] | | | | | | [address] | | | | + + + [...] | + + + + + | [facility] | [address] | [place] [address] | [phone] | + + + + + documented [...]
--- OUTSIDE RECORDS SUMMARY | ~2019-12-13 | XMS | Clinical Summary ---
Demographics + + + | Address | [address] | | | [place] [address] | + + + | Home Phone | | + + + | Preferred Language | Unknown | + + + | Marital Status | | + + + | Latter-Day Affiliation | 1041 | + + + | Race | Unknown | + + + | Ethnic Group | Unknown | + + + Author + + + | Author | [facility] (Historical as of | | | 03-09-19) | + + + | Organization | [facility] (Historical as of | | | 03-09-19) [...] [place] | | | | | [address] | | + + + + + | Mercedes Lemus | ECON | Unknown | | + + + + + Care Team Providers + +------+ + | Care Applications Systems Engineer Name | Role | Phone | + [...] +------+-------+ + | MEDICARE | MEDICA | [id number] | | | [address] | | | RE | | | | [place] [address] | | | IP-OP | | | [...] Self | [birth year] | Home: | [address] | | | al/Fam | | 1940 | [phone] | [place] | | | dayna | | | [birth year] | [address] | + +--------+ +--------+ + +
--- OUTSIDE RECORDS SUMMARY | ~2019-12-13 | XMS | Encounter Summary ---
Demographics + + + | Address | [address] | | | [place] [address] | + + + | Home Phone [...] [place], [place] | | | | | [address] | | + + + + + | Mercedes Lemus | ECON | [place] | | | | | [address] | | + + + + + Care Team Providers + +------+ + | Care Release Of Information Clerk Name | Role | Phone | + [...] + + | 06/20/ | Telephone | [facility] | Jose Juan Bo | Other (restrictions) | | 2011 | | NEUROSURGERY [address] | FMD [address] | | | | | [address] [facility] | [place], [place] | | | | | [place], [place] | [address] | | | | | [address] | [phone] | | | | | [phone] | | | +--------+ + + + [...]
--- OUTSIDE RECORDS SUMMARY | ~2019-12-13 | XMS | Encounter Summary ---
Demographics + + + | Address | [address] | | | [place] [address] | + + + | Home Phone | | + + + | Preferred Language | Unknown | + + + | Marital Status | | + + + | Samaritan Affiliation | 1041 | + + + [...] [place], [place] | | | | | [address] | | + + + + + | Mercedes Lemus | ECON | [place] | | | | | [address] | | + + + + + Care Team Providers + +------+ + | Care Scout Sniper Name | Role | Phone | + +------+ + | Martell Hilario NP | PCP | | + +------+ + Encounter Details +--------+ + + + + | Date | Type | Department | Care Team | Description | +--------+ + + + + | 10/01/ | Emergency | [facility] | Wilman Campbell, | Acute left-sided low | | 2019 | | MEDICAL CENTER | MD [address] | back pain without | | | | EMERGENCY CENTER | [place] [address] | sciatica | | | | [address] | [phone] | | | | | [place], [place] | | | | | | [address] | | | | | | [phone] | | | +--------+ + + + [...]
--- OUTSIDE RECORDS SUMMARY | ~2019-12-13 | XMS | Encounter Summary ---
Demographics + + + | Address | [address] | | | [place] [address] | + + + | Home Phone | | + + + | Preferred Language | Unknown | + + + | Marital Status | | + + + | Cheondoism Affiliation | 1041 | + + + | Race | Unknown | + + + | Ethnic Group | Unknown | + + + Author + + + | Author | [facility] | | | and [place] | + + + | Organization | [facility] | | | and [place] | + + + | Address | Unknown | + + + | Phone | Unavailable | + + + Support + + + + + | Name | Relationship | Address | Phone | + + + + + | Law Collado | ECON | [address] | | | | | [place], [place] | | | | | [address] | | + + + + + | Mercedes Lemus | ECON | [place] | | | | | [address] | | + + + + + Care Team Providers + +------+ + | Care Balancer Scale Name | Role | Phone | + +------+ + | Hector Mccoy DO | PCP | | + +------+ + Encounter Details +--------+ + + + + | Date | Type | Department | Care Team | Description | +--------+ + + + + | 11/05/ | Hospital | [facility] | Jose Juan Bo | Status post lumbar | | 2012 | Encounter | MED CTR XRAY [address] | FMD [address] | spinal fusion | | | | [address] [place] | [place], [place] | | | | | [place] [address] | [address] | | | | | [phone] | | | | | | | [...] Performed At | + + + | [facility] Diagnostic Imaging | [place] | | Department [address] [facility] | [facility] | | [ rep ct street1[address]] [ rep [facility] | | st [facility]] Signed | - IMAGING | | | | | Patient Name: TREE COLLADO Physician: | | | ARRE.01 : 1940 Age: 72 Sex: F Unit #: [id number] | | | Exam Date: 11/05/12 Location: [facility] | | | Report #: [id number] Page: | | | %(RAD)RES..mtdd.print.filter("pg") of %(RAD) | | | RES..mtdd.print.filter("tpg") | | | | | | Accession Number: [id number] | | | LUMBAR SPINE LIMITED X-RAY, [...] Transcribed Date/Time: | | | 11/05/2012 11:58 Coffee Supervisor: | | | <<Signature on File>> | | | Parker | | | Gisell Deluna MD11/05/12 1944 <Electronically signed by Parker Jameson | | | Regi LOPEZ> Parker Deluna MD 11/05/12 110 | | | Coffee Supervisor: Lubna Txqaodzfzbuzf92/15/13 3548 | | | Jose Juan Bo MD | | + + + + + + + + | Performing | Address | City/State/Zipcode | Phone Number | | Organization | | | | + + + + + | [facility] | [address] | [place] | [phone] | | [facility] | | [address] | | | - IMAGING | | | | + + + + + documented in this encounter Visit Diagnoses + + | Diagnosis | + + | Status post lumbar spinal fusion Arthrodesis status | + + documented in this encounter
--- OUTSIDE RECORDS SUMMARY | ~2019-12-13 | XMS | Encounter Summary ---
Demographics + + + | Address | [address] | | | [place] [address] | + + + | Home Phone | | + + + | Preferred Language | Unknown | + + + | Marital Status | | + + + | Hoahaoism Affiliation | 1041 | + + + | Race | Unknown | + + + | Ethnic Group | Unknown | + + + Author + + + | Author | [facility] | | | and [place] | + + + | Organization | [facility] | | | [...] [place], [place] | | | | | [address] | | + + + + + | Mercedes Lemus | ECON | [place] | | | | | [address] | | + + + + + Care Team Providers + +------+ + | Care Dowel Pin Man Name | Role | Phone | + [...] + + | 11/05/ | Office | [facility] | Jose Juan Bo | Status post lumbar | | 2012 | Visit | NEUROSURGERY [address] | FMD [address] | spinal fusion | | | | [address] | St [place] [employer] | (Primary Dx) | | | | [place] | [address] | | | | | [address] | [phone] | | | | | [phone] | | | +--------+---------+ + + + [...] stimulator! documented in this encounter Progress Notes Bo, Jose Juan F, MD - 11/05/2012 10:42 AM PDTFormatting of this note might be differen t from the original. Jose Juan Bo MD [address] [facility] [address] [place] [address] FAX: NEUROSURGERY FOLLOW-UP CHIEF COMPLAINT: Chief Complaint [...] Surgical History Procedure Date Topical hip replacement 2001 Shoulder replacement bilaterally Miscarriages 1967, 1968, and [...] At | + + + | [facility] Diagnostic Imaging | [place] | | Department [address] [facility] [place] [facility] | | [ rep ct [address]2] [ rep ct [facility] | | st zip] Signed | - IMAGING | | | | | Patient Name: TREE COLLADO Physician: | | | ARRE.01 : 1940 Age: 72 Sex: F Unit #: [id number] | | | Exam Date: 11/05/12 Location: [facility] | | | Report #: [id number] Page: | | | %(RAD)RES..mtdd.print.filter("pg") of %(RAD) | | | RES..mtdd.print.filter("tpg") | | | | | | Accession Number: [id number] | | | LUMBAR SPINE LIMITED X-RAY, [...] Transcribed Date/Time: | | | 11/05/2012 11:58 Cash Management Clerk: | | | <<Signature on File>> | | | Parker | | | Gisell Deluna MD11/05/121943 <Electronically signed by Parker Jameson | | | Regi LOPEZ> Parker Deluna MD 11/05/12 1102 | | | Cash Management Clerk: [employer] Epeupydzubgbr58/15/13 1158 | | | Jose Juan Bo MD | | + + + + + + + + | Performing | Address | City/State/Zipcode | Phone Number | | Organization | | | | + + + + + | [facility] | [address] | [place] | [phone] | | [facility] | | [address] | | | - IMAGING | | | | + + + + + documented in this encounter Visit Diagnoses + + | Diagnosis | + + | Status post lumbar spinal fusion - Primary Arthrodesis status | + + documented in this encounter
--- OUTSIDE RECORDS SUMMARY | ~2019-12-13 | XMS | Encounter Summary ---
Demographics + + + | Address | [address] | | | [place] [address] | + + + | Home Phone | | + + + | Preferred Language | Unknown | + + + | Marital Status | | + + + | Tenriism Affiliation | 1041 | + + + | Race | Unknown | + + + | Ethnic Group | Unknown | + + + Author + + + | Author | [facility] | | | and [place] | + + + | Organization | [facility] | | | [...] [place], [place] | | | | | [address] | | + + + + + | Mercedes Lemus | ECON | [place] | | | | | [address] | | + + + + + Care Team Providers + +------+ + | Care Prop Sawyer Name | Role | Phone | [...] | | | | Major Joint | [address] | | | | | | Right | Phone: | | | | | | | [phone] | | | | | | | Fax: | | | | | | | [phone] | | +--------+--------+ + + + + Reason for Visit + + + | Reason | Comments | + + + | Back Pain | | + + + Encounter Details +--------+---------+ + + + | Date | Type | Department | Care Team | Description | +--------+---------+ + + + | 04/11/ | Office | [facility] | Bogdakendallcz, | Lumbar radiculopathy | | 2017 | Visit | PHYSIATRY [address] | [address] | (Primary Dx); | | | | [address] | [address] | Spinal stenosis of | | | | [place], [place] | [place] [address] | lumbar region with | | | | [address] | [phone] | radiculopathy; S/P | | | | [phone] | | lumbar fusion; | | | [...] of blood sugars if you are diabetic. FDC risk can lead to osteoporosis which is [...] of the procedure you must provide a solid waste truck driver to take you home. For all procedur es it is recommended that someone else drive you home. documented in this encounter Progress Notes Ana Greco PA-C - 04/11/2018 10:40 AM PDTFormatting of this note might be differe nt from the original. Ana Greco PA-C [address] [facility] [place], [address] [place] [address] FAX: PHYSICAL MEDICINE AND REHABILITATION H&P CHIEF [...] has no apparent deficits with short or long-term memory. She has appropriate fund of knowledge [...] PT (multiple sessions over the years) and health care coach. Unfortunately she cont inues to have significant [...]
--- OUTSIDE RECORDS SUMMARY | ~2019-12-13 | XMS | Encounter Summary ---
Demographics + + + | Address | [address] | | | [place] [address] | + + + | Home Phone | | + + + | Preferred Language | Unknown | + + + | Marital Status | | + + + | Shinto Affiliation | 1041 | + + + | Race | Unknown | + + + | Ethnic Group | Unknown | + + + Author + + + | Author | [facility] | | | and [place] | + + + | Organization | [facility] | | [...] [place], [place] | | | | | [address] | | + + + + + | Mercedes Lemus | ECON | [place] | | | | | [address] | | + + + + + Care Team Providers + +------+ + | Care Side Sawyer Name | Role | Phone | [...] | Lumbar | Yo, | [address] | | | | | radiculopath | Cecilio Ortiz MD | [place], | | | | | y | [address] | [place] | | | | | Procedures | [place] | [address] | | | | | [place] INJECT | [place], [place] | Phone: | | | | | ANES/STEROID | [address] | [phone] | | | | | FORAMEN | Phone: | Fax: | | | | | LUMBAR/SACRA | [phone] | [phone] | | | | | L W IMG | Fax: | | | | | | GUIDE ,1 | [phone] | | | | | | LEVEL SC | | | | | | | [...] + + + + | 04/05/ | [facility] | [facility] | Cecilio Ram | Lumbar radiculopathy | | 2017 | Encounter | MED CTR XRAY [address] | T, [address] | | | | | [place] | [facility] [place] | | | | | [place] [address] | [id number] | | | | | [phone] | | | | | | | Scrub NurseShukri | | | | | | bacilio [...] | Transforaminal Epidural Steroid InjectionDiagnosis: Lumbar | [facility] | | radiculopathyICD-10 Code M54.16 Mary Collado presents to the | [facility] | | fluoroscopy suite for a [...] [address] | [place] | [phone] | | [facility] | | [address] | | | - IMAGING | | [...]
--- OUTSIDE RECORDS SUMMARY | ~2019-12-13 | XMS | Encounter Summary ---
Demographics + + + | Address | [address] | | | [place] [address] | + + + | Home Phone | | + + + | Preferred Language | Unknown | + + + | Marital Status | | + + + | Restorationism Affiliation | 1041 | + + + | Race | Unknown | + + + | Ethnic Group | Unknown | + + + Author + + + | Author | [facility] | | | and [place] | + + + | Organization | [facility] | | | and [...] [place], [place] | | | | | [address] | | + + + + + | Mercedes Lemus | ECON | [place] | | | | | [address] | | + + + + + Care Team Providers + +------+ + | Care Tour Production Supervisor Name | Role | Phone | + +------+ + | Hector Mccoy DO | PCP | | + +------+ + Reason for Visit +--------+ + | Reason | Comments | +--------+ + | Other | return to work | +--------+ + Encounter Details +--------+ + + + + | Date | Type | Department | Care Team | Description | +--------+ + + + + | 05/22/ | Telephone | [facility] | Jose Juan Bo | Other (return to | | 2011 | | NEUROSURGERY [address] | F, [address] | work ) | | | | [address] | [place] | | | | | [place] | [address] | | | | | [address] | [phone] | | | | | [phone] | | | +--------+ + + + [...]
--- OUTSIDE RECORDS SUMMARY | ~2019-12-13 | XMS | Encounter Summary ---
Demographics + + + | Address | [address] | | | [place] [address] | + + + | Home Phone | | + + + | Preferred Language | Unknown | + + + | Marital Status | | + + + | Orthodoxy Affiliation | 1041 | + + + | Race | Unknown | + + + | Ethnic Group | Unknown | + + + Author + + + | Author | [facility] | | | and [place] | + + + | Organization | [facility] | | | [...] [place], [place] | | | | | [address] | | + + + + + | Mercedes Lemus | ECON | [place] | | | | | [address] | | + + + + + Care Team Providers + +------+ + | Care Construction Producer Name | Role | Phone | + +------+ + PCP | Unavailable | + +------+ + Encounter Details +--------+ + + + + | Date | Type | Department | Care Team | Description | +--------+ + + + + | 05/07/ | Hospital | [facility] | Jose Juan Bo | | | 2011 - | Encounter | MED CTR SURGICAL | MD Kelby [address] | | | | | [address] | St [place], [place] | | | 05/10/ | | [place] [address] | [address] | | | 2011 | | [phone] | | | | | | | [...] Pako Norman PA-C - 08/10/2012 2:35 [place] [address] Patient Name: TREE COLLADO Provider: Jose Juan Bo MD Unit #: [id number] Locati on: 3ES : 1940 ADMISSION DATE: [...] well and postoperatively was [facility] where she remained hemodynamically stable and afebrile [...] condition and ready for discharge to rehab [facility]. DISCHARGE DISPOSITION: To Rehab DISCHARGE CONDITION: Good [...] Jose Juan Bo MD Neurosurgery JOB #: [id number] EXT JOB #:[id number] documented in t his encounter Plan of Treatment Not on filedocumented [...] - 1.030 | [facility] | | | [place], | | | [facility] | | [...] | | ? | | | [facility] | | [...] | [facility] [facility] | [address] | [place] | [phone] | | [facility] | | [address] | | | - LABORATORY | | | | + + + + + | [address] [facility] | [address] [facility] | [place], [place] | | | [facility] | | [address], [facility] | | | - LABORATORY | | | | + + + + + XR Lumbar Spine 2 or 3 Vw (05/08/2012 11:18 AM PDT) + + | Specimen | + + | | + + + + + | Narrative | Performed At | + + + | [facility] Diagnostic Imaging | [place] | | Department [address] , [place] | [facility] | | [ rep ct street[address]] [ rep [facility] | | st zip] Signed | - IMAGING | | | | | Patient Name: TREE COLLADO Physician: | | | JOSIE. : 1940 Age: 71 Sex: F Unit #: [id number] | | | Exam Date: 05/08/12 Location: [address] [place] [address] | | | Report #: [id number] Page: | | | %(RAD)RES..mtdd.print.filter("pg") of %(RAD) | | | RES..mtdd.print.filter("tpg") | | | | | | Accession Number: [id number] | | | LUMBAR SPINE LIMITED, 05/08/2012 CLINICAL HISTORY: | | | POSTOP SURGERY. COMPARISON: Preoperative radiograph | | | 01/26/2012 from [facility]. FINDINGS: | | | Frontal and [...] | | | Transcribed Date/Time: 05/08/2012 11:47 Lieutenant General: | | | MR.MS1 <<Signature on File>> | | | Roger | | | Diana Leonard MD05/08/12 1718 <Electronically signed by Roger Ortiz | | | Aisha LOPEZ> Roger Leonard MD 05/08/12 1118 | | | Lieutenant General: To8to Lrjwkxornnacu40/16/12 1137 | | | Jose Juan Bo MD | | + + + + + + + + | Performing | Address | City/State/Zipcode | Phone Number | | Organization | | | | + + + + + | [facility] | [address] | [place] | [phone] | | [facility] | | [address] | | | - IMAGING | | | | + + + + + documented in this encounter Visit Diagnoses Not on filedocumented in this encounter
--- OUTSIDE RECORDS SUMMARY | ~2019-12-13 | XMS | Encounter Summary ---
Demographics + + + | Address | [address] | | | [place] [address] | + + + | Home Phone | | + + + | Preferred Language | Unknown | + + + | Marital Status | | + + + | Mosque Affiliation | 1041 | + + + [...] [place], [place] | | | | | [address] | | + + + + + | Mercedes Lemus | ECON | [place] | | | | | [address] | | + + + + + Care Team Providers + +------+ + | Care Neuropathologist Name | Role | Phone | + [...] + + | 05/22/ | Telephone | [facility] | Jose Juan Bo | Other (return to | | 2011 | | NEUROSURGERY [address] | F, [address] | work ) | | | | [address] | [place] | | | | | [place] | [address] | | | | | [address] | [phone] | | | | | [phone] | | | +--------+ + + + [...]
--- OUTSIDE RECORDS SUMMARY | ~2019-12-13 | XMS | Clinical Summary ---
Demographics + + + | Address | [address] | | | [place] [address] | + + + | Home Phone | | + + + | Preferred Language | Unknown | + + + | Marital Status | | + + + | Rastafari Affiliation | 1041 | + + + | Race | Unknown | + + + | Ethnic Group | Unknown | + + + Author + + + | Author | [employer] (Historical as of | | | 03-09-19) | + + + | Organization | [facility] [employer] (Historical as of | | | 03-09-19) [...] [place] | | | | | [address] | | + + + + + | Mercedes Lemus | ECON | Unknown | | + + + + + Care Team Providers + +------+ + | Care Color Blender Name | Role | Phone | + [...] +------+-------+ + | MEDICARE | MEDICA | [id number] | | | [address] | | | [place] | | | | [place] [address] | | | IP-OP | | | [...] Self | [birth year] | Home: | [address] | | | al/Fam | | 1940 | [phone] | [place] | | | [place] | | | [phone] | [address] | + +--------+ +--------+ + +
--- OUTSIDE RECORDS SUMMARY | ~2019-12-13 | XMS | Encounter Summary ---
Demographics + + + | Address | [address] | | | [place] [address] | + + + | Home Phone | | + + + | Preferred Language | Unknown | + + + | Marital Status | | + + + | Rastafarian Affiliation | 1041 | + + + [...] [place], [place] | | | | | [address] | | + + + + + | Mercedes Lemus | ECON | [place] | | | | | [address] | | + + + + + Care Team Providers + +------+ + | Care Survey Analyst Name | Role | Phone | + [...] | | | [address] [place] | [place] [address] | | | | | [place] [address] | | | | | | [phone] | | | +--------+ + + + [...]
--- OUTSIDE RECORDS SUMMARY | ~2019-12-13 | XMS | Encounter Summary ---
Demographics + + + | Address | [address] | | | [place] [address] | + + + | Home Phone | | + + + | Preferred Language | Unknown | + + + | Marital Status | | + + + | Muslim Affiliation | 1041 | + + + [...] [place], [place] | | | | | [address] | | + + + + + | Mercedes Lemus | ECON | [place] | | | | | [address] | | + + + + + Care Team Providers + +------+ + | Care Vice President Lending Name | Role | Phone | + [...] | Lumbar | Yo, | [address] | | | | | radiculopath | Cecilio Ortiz MD | [place], | | | | | y | [address] | [place] | | | | | Procedures | [place] | [address] | | | | | [place] INJECT | [place], [place] | Phone: | | | | | ANES/STEROID | [address] | [phone] | | | | | FORAMEN | Phone: | Fax: | | | | | LUMBAR/SACRA | [phone] | [phone] | | | | | L W IMG | Fax: | | | | | | GUIDE ,1 | [phone] | | | | | | [place] | | | | | | [...] | 08/31/ | Hospital | [facility] | Cecilio Ram | Lumbar radiculopathy | | 2018 | Encounter | MED CTR XRAY [address] | T, [address] | | | | | [place] | ST [place] | | | | | [place] [address] | [address] | | | | | [phone] | | | | | | | Dishwashing Machine RepairerShukri | | | | | | [place] [...] + + | Performing | Address | City/State/[facility] | Phone Number | | Organization | [...] 2:15 | | | | | ONCE, [facility] 08/31/17 at 1430, For 1 | | [...]
--- OUTSIDE RECORDS SUMMARY | ~2019-12-13 | XMS | Encounter Summary ---
Demographics + + + | Address | [address] | | | [place] [address] | + + + | Home Phone | | + + + | Preferred Language | Unknown | + + + | Marital Status | | + + + | Uatsdin Affiliation | 1041 | + + + | Race | Unknown | + + + | Ethnic Group | Unknown | + + + Author + + + | Author | [facility] | | | and [place] | + + + | Organization | [facility] | | | [...] [place], [place] | | | | | [address] | | + + + + + | Mercedes Lemus | ECON | [place] | | | | | [address] | | + + + + + Care Team Providers + +------+ + | Care Staff Developer Name | Role | Phone | [...] | | | [place] | [place] [address] | (Primary Dx); S/P | | | | [address] | [phone] | lumbar fusion | | | | [phone] | | | +--------+ + + + [...]
--- OUTSIDE RECORDS SUMMARY | ~2019-12-13 | XMS | Encounter Summary ---
Demographics + + + | Address | [address] | | | [place] [address] | + + + | Home Phone | | + + + | Preferred Language | Unknown | + + + | Marital Status | | + + + | Scientologist Affiliation | 1041 | + + + | Race | Unknown | + + + | Ethnic Group | Unknown | + + + Author + + + | Author | [facility] | | | and [place] | + + + | Organization | [facility] | | | and [...] [place], [place] | | | | | [address] | | + + + + + | Mercedes Lemus | ECON | [place] | | | | | [address] | | + + + + + Care Team Providers + +------+ + | Care Foundry Engineer Name | Role | Phone | [...] | | | [place] | [place] [address] | (Primary Dx); S/P | | | | [address] | [phone] | lumbar fusion | | | | [phone] | | | +--------+ + + + [...]
--- OUTSIDE RECORDS SUMMARY | ~2019-12-13 | XMS | Encounter Summary ---
Demographics + + + | Address | [address] | | | [place] [address] | + + + | Home Phone [...] [place], [place] | | | | | [address] | | + + + + + | Mercedes Lemus | ECON | [place] | | | | | [address] | | + + + + + Care Team Providers + +------+ + | Care Asbestos Cloth Inspector Name | Role | Phone | [...] + + | 06/07/ | Telephone | [facility] | Jose Juan Bo | Other (One year | | 2012 | | [address] | MD Kelby [address] | x-ray results ) | | | | [address] | St [place], [place] | | | | | [place], [place] | [address] | | | | | [address] | [phone] | | | | | [phone] | | | +--------+ + + + [...]
--- OUTSIDE RECORDS SUMMARY | ~2019-12-13 | XMS | Encounter Summary ---
Demographics + + + | Address | [address] | | | [place] [address] | + + + | Home Phone [...] [place], [place] | | | | | [address] | | + + + + + | Mercedes Lemus | ECON | [place] | | | | | [address] | | + + + + + Care Team Providers + +------+ + | Care Crewman Armoured Personnel Carrier M113 Name | Role | Phone | + [...] + + | 05/14/ | Telephone | [facility] | Jose Juan Bo | Other (One year post | | 2012 | | NEUROSURGERY [address] | [address] | operative update ) | | | | [address] | [address] [place] | | | | | [place] | [address] | | | | | [address] | [phone] | | | | | [phone] | | | +--------+ + + + [...]
--- OUTSIDE RECORDS SUMMARY | ~2019-12-13 | XMS | Encounter Summary ---
Demographics + + + | Address | [address] | | | [place] [address] | + + + | Home Phone | | + + + | Preferred Language | Unknown | + + + | Marital Status | | + + + | Zoroastrianism Affiliation | 1041 | + + + | Race | Unknown | + + + | Ethnic Group | Unknown | + + + Author + + + | Author | [facility] | | | and [place] | + + + | Organization | [facility] | | | [...] [place], [place] | | | | | [address] | | + + + + + | Mercedes Lemus | ECON | [place] | | | | | [address] | | + + + + + Care Team Providers + +------+ + | Care Homeland Security Program Specialist Name | Role | Phone | [...] + + | 04/17/ | Telephone | [facility] | Cecilio Ram | Hyperglycemia | | 2018 | | PHYSIATRY [address] | T, [address] | | | | | [address] | [place] | | | | | [place] | [address] | | | | | [address] | | | | | | [phone] | | | +--------+ + + + [...]
--- OUTSIDE RECORDS SUMMARY | ~2019-12-13 | XMS | Encounter Summary ---
Demographics + + + | Address | [address] | | | [place] [address] | + + + | Home Phone [...] [place], [place] | | | | | [address] | | + + + + + | Mercedes Lemus | ECON | [place] | | | | | [address] | | + + + + + Care Team Providers + +------+ + | Care Turf Grower Name | Role | Phone | + +------+ + | Martell Hilario NP | PCP | | + +------+ + Encounter Details +--------+ + + + + | Date | Type | Department | Care Team | Description | +--------+ + + + + | 02/20/ | Orders Only | [facility] | Provider, | | | 2019 | | SYSTEM GENERIC OP | MD [address] | | | | | CONVERSION [address] | [address] | | | | | [address] [place], [place] | [place] [address] | | | | | [address] | | | | | | [phone] | | | +--------+ + + + [...]
--- OUTSIDE RECORDS SUMMARY | ~2019-12-13 | XMS | Clinical Summary ---
Demographics + + + | Address | [address] | | | [place] [address] | + + + | Home Phone [...] [place], [place] | | | | | [address] | | + + + + + | Mercedes Lemus | ECON | [place] | | | | | [address] | | + + + + + Care Team Providers + +------+ + | Care Molder Inflated Ball Name | Role | Phone | + [...] +--------+ +---------+--------+ | MEDICARE | MEDICA | [id number] | | [phone] | | Medica | | | RE | | 007-Pr | 5 | | re | | | PART A | | esent | | | | | | AND B | | | | | | + +--------+ +--------+ +---------+--------+ | MEDICARE | MEDICA | [id number] | | [phone] | | Medica | [...] [place] | | | 1 (Home) | [address] | + +--------+ +--------+ + + | Mary Collado | Person | Self | [birth year] | [address] | | | al/Fam | | 1940 | [phone] | [place], [place] | | | [place] | | | 1 (Home) | [address] | + +--------+ +--------+ + + Advance Directives + + + + + | Type | Date Recorded | Patient | Explanation | | | | Kier Drier | | + + + + + | Power of | | | | | Meringuer | | | | + + + + + | Advance | 04/16/2018 12:20 | | | | Directive | PM | | | + + + + +
--- OUTSIDE RECORDS SUMMARY | ~2019-12-13 | XMS | Encounter Summary ---
Demographics + + + | Address | [address] | | | [place] [address] | + + + | Home Phone | | + + + | Preferred Language | Unknown | + + + | Marital Status | | + + + | Muslim Affiliation | 1041 | + + + | Race | Unknown | + + + | Ethnic Group | Unknown | + + + Author + + + | Author | [facility] | | | and [place] | + + + | Organization | [facility] | | [...] [place], [place] | | | | | [address] | | + + + + + | Mercedes Lemus | ECON | [place] | | | | | [address] | | + + + + + Care Team Providers + +------+ + | Care Clinical Trials Assistant Name | Role | Phone | + [...] + + | 03/14/ | Office | [facility] | Cecilio Ram | Lumbar radiculopathy | | 2017 | Visit | [address]SIATRY [address] | MD Diana [address] | (Primary Dx); | | | | [address] | [address] [place] [facility] [place] | Status post lumbar | | | | [place] | [address] | spinal fusion; | | | | [address] | | Spinal stenosis of | | | | [phone] | | lumbar region with | | [...] of the procedure you must provide a show horse driver to take you home. For all procedur es it is recommended that someone else drive you home. documented in this encounter Progress Notes Cecilio Ram MD - 03/14/2017 10:50 AM PDT Cecilio Ram MD [address] [facility], [address] [place], [place] [address] FAX: PHYSICAL MEDICINE AND REHABILITATION H&P CHIEF [...] has no apparent deficits with short or shelter memory. She has appropriate fund of knowledge [...] | Transforaminal Epidural Steroid InjectionDiagnosis: Lumbar | [facility] | | radiculopathyICD-10 Code M54.16 Mary Collado presents to the [facility] | | fluoroscopy suite for a [...] + | [facility] [facility] | [address] | [place] | [phone] | | [facility] | | [address] | | | - IMAGING | | [...]
--- OUTSIDE RECORDS SUMMARY | ~2019-12-13 | XMS | Encounter Summary ---
Demographics + + + | Address | [address] | | | [place] [address] | + + + | Home Phone | | + + + | Preferred Language | Unknown | + + + | Marital Status | | + + + | Baptist Affiliation | 1041 | + + + | Race | Unknown | + + + | Ethnic Group | Unknown | + + + Author + + + | Author | [facility] | | | and [place] | + + + | Organization | [facility] | | [...] [place], [place] | | | | | [address] | | + + + + + | Mercedes Lemus | ECON | [place] | | | | | [address] | | + + + + + Care Team Providers + +------+ + | Care Industrial Machine Assembler Name | Role | Phone | + +------+ + | Hector Mccoy DO | PCP | | + +------+ + Encounter Details +--------+ + + + + | Date | Type | Department | Care Team | Description | +--------+ + + + + | 06/19/ | Hospital | [facility] | Jose Juan Bo | Status post lumbar | | 2011 - | Encounter | MED CTR XRAY [address] | [address] | spinal fusion | | | | [address] [place] | [place], [place] | | | 06/21/ | | [place] [address] | [address] | | | 2011 | | [phone] | | | | | | | [...] Performed At | + + + | [facility] | [place] | | Department [address] [place], [place] [address]MyriamHoward [place] | [facility] | | [ rep ct [address]] [ rep [facility] | | st zip] Signed | - IMAGING | | | | | Patient Name: MARY COLLADO Physician: | | | ARRE.01 : 1940 Age: 71 Sex: F Unit #: [id number] | | | Exam Date: 06/19/12 [place] [facility] | | | Report #: [id number] Page: | | | %(RAD)RES..mtdd.print.filter("pg") of %(RAD) | | | RES..mtdd.print.filter("tpg") | | | | | | Accession Number: [id number] | | | LUMBAR SPINE CLINICAL HISTORY: [...] Transcribed | | | Date/Time: 06/19/2012 15:31 Scientific Programmer Analyst: | | | <<Signature on File>> | | | | | | Johnathan Alford MD06/19/12 0010 <Electronically signed by | | | Johnathan Alford MD> Johnathan Alford MD 06/19/12 | | | 1519 Scientific Programmer Analyst: Lubna Nlnnujvyjjjdv00/27/12 1531 | | | Jose Juan Bo MD | | + + + + + + + + | Performing | Address | City/State/Zipcode | Phone Number | | Organization | | | | + + + + + | [address] | [address] | [place] | [phone] | | [facility] | | [address] | | | - IMAGING | | | | + + + + + documented in this encounter Visit Diagnoses + + | Diagnosis | + + | Status post lumbar spinal fusion Arthrodesis status | + + documented in this encounter
--- OUTSIDE RECORDS SUMMARY | ~2019-12-13 | XMS | Encounter Summary ---
Demographics + + + | Address | [address] | | | [place] [address] | + + + | Home Phone [...] [place], [place] | | | | | [address] | | + + + + + | Mercedes Lemus | ECON | [place] | | | | | [address] | | + + + + + Care Team Providers + +------+ + | Care Pit Furnace Melter Name | Role | Phone | + [...] + + | 08/31/ | Office | [facility] | Cecilio Ram | Lumbar radiculopathy | | 2018 | Visit | PHYSIATRY [address] | MD Diana [address] | (Primary Dx); | | | | [address] | ST [place], [place] | Spinal stenosis of | | | | [place], [place] | [address] | lumbar region with | | | | [address] | | radiculopathy; S/P | | | | [phone] | | lumbar fusion; | | | [...] of the procedure you must provide a cab driver to take you home. For all procedur es it is recommended that someone else drive you home. documented in this encounter Progress Notes Cecilio Ram MD - 08/31/2017 9:30 AM PST Cecilio Ram MD [address] [place] [address], [address] [place] [address] FAX: PHYSICAL MEDICINE AND REHABILITATION H&P CHIEF [...] has no apparent deficits with short or music therapy teacher memory. She has appropriate fund of knowledge [...]
--- OUTSIDE RECORDS SUMMARY | ~2019-12-13 | XMS | Encounter Summary ---
Demographics + + + | Address | [address] | | | [place] [address] | + + + | Home Phone | | + + + | Preferred Language | Unknown | + + + | Marital Status | | + + + | Latter-Day Affiliation | 1041 | + + + | Race | Unknown | + + + | Ethnic Group | Unknown | + + + Author + + + | Author | [facility] | | | and [place] | + + + | Organization | [facility] | | | [...] [place], [place] | | | | | [address] | | + + + + + | Mercedes Lemus | ECON | [place] | | | | | [address] | | + + + + + Care Team Providers + +------+ + | Care Counselor Nurs[employer] Name | Role | Phone | + [...] | | | | | [place], [place] | [place] [address] | | | | | [address] | [phone] | | | | | [phone] | | | +--------+ + + + [...]
--- OUTSIDE RECORDS SUMMARY | ~2019-12-13 | XMS | Encounter Summary ---
Demographics + + + | Address | [address] | | | [place] [address] | + + + | Home Phone [...] [place], [place] | | | | | [address] | | + + + + + | Mercedes Lemus | ECON | [place] | | | | | [address] | | + + + + + Care Team Providers + +------+ + | Care Corporate Director Name | Role | Phone | + +------+ + PCP | Unavailable | + +------+ + Encounter Details +--------+ + + + + | Date | Type | Department | Care Team | Description | +--------+ + + + + | 05/07/ | Hospital | [facility] | Jose Juan Bo | | | 2011 - | Encounter | MED CTR SURGICAL | MD [address]by [address] | | | | | [address] | [address] [place], [place] | | | 05/10/ | | [place] [address] | [address] | | | 2011 | | [phone] | [phone] | | | | | | [...] Norman PA-C - 08/10/2012 2:35 PM [place] [address] Patient Name: TREE COLLADO Provider: Jose Juan Bo MD Unit #: [id number] Locati on: 3ES : 1940 ADMISSION DATE: [...] well and postoperatively was transferred to the [facility] where she remained hemodynamically stable and afebrile [...] condition and ready for discharge to rehab [facility]. DISCHARGE DISPOSITION: To Rehab DISCHARGE [...] Jose Juan Bo MD Neurosurgery JOB #: [id number] EXT JOB #:[id number] documented in t his encounter Plan of [...] - 1.030 | [facility] | | | [place], | | | [facility] | | [...] [address] | [place] | [phone] | | [facility] | | [address] | | | - LABORATORY | | | | + + + + + | [address] | [address] [facility] | [place], [place] | | | [facility] | | [address], [facility] | | | - LABORATORY | | | | + + + + + XR Lumbar Spine 2 or 3 Vw (05/08/2012 11:18 AM PDT) + + | Specimen | + + | | + + + + + | Narrative | Performed At | + + + | [facility] Diagnostic Imaging | [facility] | | Department [address] , [place] | [facility] | | [ rep ct [address]] [ rep ct [facility] | | st zip] Signed | - IMAGING | | | | | Patient Name: TREE COLLADO Physician: | | | JOSIE. : 1940 Age: 71 Sex: F Unit #: [id number] | | | Exam Date: 05/08/12 Location: [address] [place] [address] | | | Report #: [id number] Page: | | | %(RAD)RES..mtdd.print.filter("pg") of %(RAD) | | | RES..mtdd.print.filter("tpg") | | | | | | Accession Number: [id number] | | | LUMBAR SPINE LIMITED, 05/08/2012 CLINICAL HISTORY: | | | POSTOP SURGERY. COMPARISON: Preoperative radiograph | | | 01/26/2012 from [facility]. FINDINGS: | | | Frontal [...] | | | Transcribed Date/Time: 05/08/2012 11:47 Packing Machine Can Feeder: | | | MR.MS1 <<Signature on File>> | | | Roger | | | Diana Leonard MD05/08/12 1718 <Electronically signed by Roger Ortiz | | | Aisha LOPEZ> Roger Leonard MD 05/08/12 1118 | | | Packing Machine Can Feeder: [employer] Tkjjetuvrxeer88/16/12 1357 | | | Jose Juan Bo MD | | + + + + + + + + | Performing | Address | City/State/Zipcode | Phone Number | | Organization | | | | + + + + + | [facility] | [address] | [place] | [phone] | | [facility] | | [address] | | | - IMAGING | | | | + + + + + documented in this encounter Visit Diagnoses Not on filedocumented in this encounter
--- OUTSIDE RECORDS SUMMARY | ~2019-12-13 | XMS | Encounter Summary ---
Demographics + + + | Address | [address] | | | [place] [address] | + + + | Home Phone | | + + + | Preferred Language | Unknown | + + + | Marital Status | | + + + | Jain Affiliation | 1041 | + + + | Race | Unknown | + + + | Ethnic Group | Unknown | + + + Author + + + | Author | [facility] | | | and [place] | + + + | Organization | [facility] | | | [...] [place], [place] | | | | | [address] | | + + + + + | Mercedes Lemus | ECON | [place] | | | | | [address] | | + + + + + Care Team Providers + +------+ + | Care Location Man Name | Role | Phone | [...] | | | [address] | [place] [address] | | | | | [place] [address] | | | | | | [phone] | | | +--------+ + + + [...]
--- OUTSIDE RECORDS SUMMARY | ~2019-12-13 | XMS | Encounter Summary ---
Demographics + + + | Address | [address] | | | [place] [address] | + + + | Home Phone | | + + + | Preferred Language | Unknown | + + + | Marital Status | | + + + | Pentecostal Affiliation | 1041 | + + + | Race | Unknown | + + + | Ethnic Group | Unknown | + + + Author + + + | Author | [facility] | | | and [place] | + + + | Organization | [facility] | | [...] [place], [place] | | | | | [address] | | + + + + + | Mercedes Lemus | ECON | [place] | | | | | [address] | | + + + + + Care Team Providers + +------+ + | Care Intelligence Specialist Name | Role | Phone | + +------+ + PCP | Unavailable | + +------+ + Encounter Details +--------+ + + + + | Date | Type | Department | Care Team | Description | +--------+ + + + + | 10/07/ | Hospital | [facility] | Vance Joel | Coronary | | 2010 | Encounter | [facility] | MD [address] | atherosclerosis of | | | | CLINICAL DECISION | Marguerite Lance | [place] coronary | | | | [address] | [place] [address] | artery | | | | [place], [place] | [phone] | | | | | [address] | | | | | | [phone] | | | +--------+ + + + [...] (RUIZ caudal, RUIZ cranial, | | | CZECH cranial and CZECH caudal). After this, the injection system was [...] and standard views | | | obtained (CZECH cranial, RUIZ). After this, the injection system [...] 50 mL. | | | P A HANG/terry/[id number]/ | | | Read by VANCE JOEL [...] | | views (RUIZ caudal, RUIZ cranial, CZECH cranial and CZECH caudal). After this, | | the injection [...] ostium and standard | | views obtained (CZECH cranial, RUIZ). After this, the injection system [...] | P | | A | | HANG/terry/[id number]/ | | | | Read by | | VANCE JOEL DO 10/11/2010 01:08 P | | | | | + + documented in this encounter Visit Diagnoses + + | Diagnosis | + + | Coronary atherosclerosis of [place] coronary artery | + + documented in this encounter"
--- OUTSIDE RECORDS SUMMARY | ~2019-12-13 | XMS | Encounter Summary ---
Demographics + + + | Address | [address] | | | [place] [address] | + + + | Home Phone | | + + + | Preferred Language | Unknown | + + + | Marital Status | | + + + | Yazidi Affiliation | 1041 | + + + | Race | Unknown | + + + | Ethnic Group | Unknown | + + + Author + + + | Author | [facility] | | | and [place] | + + + | Organization | [facility] | | [...] [place], [place] | | | | | [address] | | + + + + + | Mercedes Lemus | ECON | [place] | | | | | [address] | | + + + + + Care Team Providers + +------+ + | Care Alignment Mechanic Name | Role | Phone | + +------+ + | Hector Harris DO | PCP | | + +------+ + Encounter Details +--------+ + + + + | Date | Type | Department | Care Team | Description | +--------+ + + + + | 12/08/ | Hospital | [facility] | Zac, | Chest pain | | 2015 - | Encounter | [facility] | MD [address] | | | | | CLINICAL DECISION | [address] | | | 12/09/ | | [address] | [place] [address] | | | 2015 | | [place], [place] | [phone] | | | | | [address] | | | | | | [phone] | | | +--------+ + + + [...] Summaries by Scott Woods MD at 12/09/14 8898 Author: Scott Woods MD Service: Hospitalist Author Type: Physician Filed: 12/14/14 4827 Date of Service: 12/09/14 0087 Status: Signed Resident Manager: Scott Woods MD (Physician) Related Notes: Original Note by Scott Woods MD (Physician) filed at 12/09/14 16 42 [facility] Service: Hospitalist Physician Discharge Summary Pt: Tree [...] of cardiac enzymes were negative for acute LA. Nuclear m edicine stress test was ordered [...] aortic stenosis and I would suggest to [facility] physician to repeat echocardiogram in about 1 [...] hours. No results for input(s): PHART, PO2ART, KRH5EES, I7EFOSEG, BEART in the last 168 hours. No [...] 1648 Date of Service: 12/09/141644 Status: Signed Resident Manager: Abby Weeks RN (Registered Nurse) Pt [...] 1622 Date of Service: 12/09/141609 Status: Signed Resident Manager: Abby Weeks RN (Registered Nurse) Dr Chuck perla. onver wong Transaction, Provider Unknown - 12/09/2014 3:34 PM PDT Case Management by Kristi Perez RN at 12/09/141533 Author: Kristi Perez RN Service: (none) Author Type: Registered Nurse Filed: 12/09/141533 Date of Service: 12/09/141533 Status: Signed Resident Manager: Kristi Perez RN (Registered Nurse) Discharge [...] 1520 Date of Service: 12/09/14422 Status: Addendum Resident Manager: Abby Weeks RN (Registered Nurse) Related Notes: Original Note by Abby Weeks RN (Registered Nurse) filed at 12/09/14 14 55 Removed nitro patch now. onver wong Transaction, Provider Unknown - 12/09/2014 4:16 AM PDT Progress Notes by Carlita Aj RPH at 12/09/14415 Author: Carlita Aj RPH Service: (none) Author Type: Pharmacist Filed: 12/09/14415 Date of Service: 12/09/14415 Status: Signed Resident Manager: Carlita Aj RPH (Pharmacist) Clinical Pharmacy Note: Renal Monitoring Tree Collado 74 y.o. female Height: 162.6 cm Weight: 91.2 kg Serum Creatinine: 0.64 mg/dL (from [facility]) Estimated creatinine clearance - Cockcroft-Gault CrCl: 87 mL/min Pharmacy dosing for renal function per Dr. Gaspar. Currently there are no medications needing to be adjusted. Pharmacy will continue to monito r for changes in medication orders and in renal function and adjust accordingly per protocol . Calrita Aj, PharmD 12/09/2014 4:15 AM docume nted [...] | | D-E Excursion: 1.62 cm E-F Comanche: 0.04 m/s EPSS: 0.48 cm | | [...] | | | 0.53 m/s TV Dec Comanche: 3.06 m/s2 TV Dec Time: 141.74 ms TV E | | | Darrell: 0.43 m/s TV E/A Ratio: 0.80 Microwave Supervisor: LUDY | | | Authenticated by: Lawrence Ortiz MD, FACC, FACP, FASSC Report | | | Date/Time: -- 05_31-99-5223_74:27:20 | | + + + + + | Procedure Note | + + | Scottie, Rad Conversion - 03/08/2019 12:59 AM PDT Patient Name: Yo COLLADO | | of : 1940 Performing Physician: Lawrence Oritz MD, FACC, | | FACP, | | [...] mlLAESV Index (A-L): 17.95 ml/m2LAAs A2C: 13.96 mr5JGCWQ A-L A2C: 33.02 mlLALs | | A2C: 5.01 cmLAAs A4C: 13.50 wc0USFWT A-L A4C: 34.03 mlLALs A4C: 4.54 cm%FS: | | 45.07 %EDV(Teich): 82.16 mlEF(Teich): 76.69 %ESV(Teich): 19.14 mlIVSd: 1.08 | | cmIVSs: 1.80 cmLVIDd: 4.28 cmLVIDs: 2.35 cmLVPWd: 1.26 cmLVPWs: 1.44 | | cmSV(Teich): 63.01 mlD-E Excursion: 1.62 cmE-F Comanche: 0.04 m/sEPSS: 0.48 cmIVC | | diameter: 1.95 cmIVC collapse: 1.02 cmIVC % collapse: 45.86 %HR: 77.28 BPMAV | | maxP.15 mmHgAV meanP.15 mmHgAV Vmax: 2.07 m/Magdaleno Vmean: 1.68 m/Magdaleno VTI: | | 44.75 cmAVA Vmax: 1.46 cm2AVA (VTI): 1.35 wt6XSOV Dopp: 2.72 l/qsbi5HRMY Dopp: | | 5.34 l/minHR: 87.96 BPMLVOT [...] A Darrell: | | 0.53 m/sTV Dec Comanche: 3.06 m/s2TV Dec Time: 141.74 msTV E Darrell: 0.43 m/sTV E/A | | Ratio: 0.80 Microwave Supervisor: MIKAuthenticated by: Lawrence Ortiz MD, FACC, FACP, | | FASNCReport Date/Time: -- 84_[id number]:27:20 IMPRESSION: 1. Overall left ventricular | | [...] | |D-E Excursion: 1.62 cm | |E-F Comanche: 0.04 m/s | |EPSS: 0.48 cm | [...] A Darrell: 0.53 m/s | |TV Dec Comanche: 3.06 m/s2 | |TV Dec Time: 141.74 ms | |TV E Darrell: 0.43 m/s | |TV E/A Ratio: 0.80 | | | |Microwave Supervisor: LUDY | |Authenticated by: Lawrence Ortiz MD, FAC, FACP, [facility] | |Report Date/Time: -- 53_[id number]:27:20 | | | |IMPRESSION: | |1. Overall [...] + + | Historically converted procedure from [facility] Epic environment | EXTERNAL LAB | + [...] EXTERNAL | | | | performed at [facility];[address] | | LAB | | | | [address];[place], [place] | | | | | | [address] | | | | + + + [...] | | | | | | ACUTE LA Testing | | | | | | performed at [facility];[address] | | | | | | [facility];[place], [place] | | | | | | [address] | | | | + + + [...] EXTERNAL | | | | performed at [facility], [address] | K/uL | LAB | | | | [address], | | | | | | [place] [address] | | | | + + + + + + | Red Blood | 4.39Comment: Testing | 3.70 - 5.10 | EXTERNAL | | | Cells | performed at [facility], [address] | M/uL | LAB | | | Counted | [address], | | | | | | [place], [place] [address] | | | | + + + + + + | Hemoglobin | 14.3Comment: Testing | 11.3 - 15.5 | EXTERNAL | | | | performed at [facility], [address] | g/dL | LAB | | | | [address], | | | | | | [place] [address] | | | | + + + + + + | Hematocrit, | 43.1Comment: Testing | 34.0 - 46.0 % | EXTERNAL | | | POC | performed at [facility], [address] | | LAB | | | | [address], | | | | | | [place] [address] | | | | + + + + + + | MCV | 98.2Comment: Testing | 80.0 - 100.0 fl | EXTERNAL | | | | performed at [facility], [address] | | LAB | | | | [address], | | | | | | [place] [address] | | | | + + + + + + | MCH | 32.7Comment: Testing | 27.0 - 34.0 pg | EXTERNAL | | | | performed at [facility], [address] | | LAB | | | | [address], | | | | | | [place] [address] | | | | + + + + + + | MCHC | 33.3Comment: Testing | 32.0 - 35.5 | EXTERNAL | | | | performed at [facility], [address] | g/dL | LAB | | | | [address], | | | | | | [place] [address] | | | | + + + + + + | RDW-CV | 44.2Comment: Testing | 37 - 53 fl | EXTERNAL | | | | performed at [facility], [address] | | LAB | | | | [address], | | | | | | [place] [address] | | | | + + + + + + | Platelet | 251Comment: Testing | 150 - 400 K/uL | EXTERNAL | | | Count | performed at [facility], [address] | | LAB | | | Plasma | [address], | | | | | | [place] [address] | | | | + + + + + + | MPV | 9.0Comment: Testing | fl | EXTERNAL | | | | performed at [facility], [address] | | LAB | | | | [address], | | | | | | [place] [address] | | | | + + + + + + | Differentia | AUTOMATEDComment: | | EXTERNAL | | | l Type | Testing performed at | | LAB | | | | [facility], [address] | | | | | | [place] | | | | | | [address] | | | | + + + + + + | % Segmented | 54.12Comment: Testing | % | EXTERNAL | | | | performed at [facility], [address] | | LAB | | | Neutrophils | [address], | | | | | | [place] [address] | | | | + + + + + + | % | 27.06Comment: Testing | % | EXTERNAL | | | Lymphocytes | performed at [facility], [address] | | LAB | | | | [address], | | | | | | [place], [place] [address] | | | | + + + + + + | % Monocytes | 11.70Comment: Testing | % | EXTERNAL | | | | performed at [facility], [address] | | LAB | | | | [address], | | | | | | [place], [place] [address] | | | | + + + + + + | % | 6.04Comment: Testing | % | EXTERNAL | | | Eosinophils | performed at [facility], [address] | | LAB | | | | [address], | | | | | | [place] [address] | | | | + + + + + + | % Basophils | 1.08Comment: Testing | % | EXTERNAL | | | | performed at [facility], [address] | | LAB | | | | [address], | | | | | | [place] [address] | | | | + + + + + + | Absolute | 4.09Comment: Testing | 1.90 - 7.40 | EXTERNAL | | | Segmented | performed at [facility], [address] | K/uL | LAB | | | Neutrophils | [address], | | | | | | [place] [address] | | | | + + + + + + | Absolute | 2.04Comment: Testing | 1.00 - 3.90 | EXTERNAL | | | Lymphocytes | performed at [facility], [address] | K/uL | LAB | | | | [address], | | | | | | [place] [address] | | | | + + + + + + | Absolute | 0.88 (H)Comment: Testing | 0.00 - 0.80 | EXTERNAL | | | Monocytes | performed at [facility], [address] | K/uL | LAB | | | | [address], | | | | | | [place] [address] | | | | + + + + + + | Absolute | 0.46Comment: Testing | 0.00 - 0.50 | EXTERNAL | | | Eosinophils | performed at [facility], [address] | K/uL | LAB | | | | [address], | | | | | | [place] [address] | | | | + + + + + + | Absolute | 0.08Comment: Testing | 0.00 - 0.10 | EXTERNAL | | | Basophils | performed at [facility], [address] | K/uL | LAB | | | | [address], | | | | | | [place] [address] | | | | + + + [...] EXTERNAL | | | | performed at [facility], [address] | uIU/mL | LAB | | | | [address], | | | | | | [place] [address] | | | | + + + [...] EXTERNAL | | | | performed at [facility], [address] | | LAB | | | | [address], | | | | | | [place] [address] | | | | + + + [...] EXTERNAL | | | | performed at [facility], [address] | | LAB | | | | [address], | | | | | | [place] [address] | | | | + + + [...] EXTERNAL | | | | performed at [facility];[address] | | LAB | | | | [address];[place], [place] | | | | | | [address] | | | | + + + [...] | | | | | [place] [address] | | | | + + + + + + | Triglycerid | 174 (H)Comment: Testing | mg/dL | EXTERNAL | | | es | performed at [facility], [address] | | LAB | | | | [address], | | | | | | [place] [address] | | | | + + + + + + | HDL | 46Comment: Testing | mg/dL | EXTERNAL | | | | performed at [facility], [address] | | LAB | | | | [address], | | | | | | [place] [address] | | | | + + + + + + | LDL, | 115 (H)Comment: Testing | mg/dL | EXTERNAL | | | Calculated | performed at [facility], [address] | | LAB | | | | [address], | | | | | | [place] [address] | | | | + + + [...] | | | | | [place] [address] | | | | + + + + + + | K | 3.8Comment: Testing | 3.5 - 4.9 | EXTERNAL | | | | performed at [facility], [address] | mmol/L | LAB | | | [address], | | | | | | [place] [address] | | | | + + + + + + | Cl | 103Comment: Testing | 99 - 109 mmol/L | EXTERNAL | | | | performed at [facility], [address] | | LAB | | | | [address], | | | | | | [place] [address] | | | | + + + + + + | CO2 | 26Comment: Testing | 23 - 32 mmol/L | EXTERNAL | | | | performed at [facility], [address] | | LAB | | | | [address], | | | | | | [place] [address] | | | | + + + + + + | Anion Gap | 12Comment: Testing | 5 - 20 mmol/L | EXTERNAL | | | | performed at [facility], [address] | | LAB | | | | [address], | | | | | | [place] [address] | | | | + + + + + + | Glucose, | 134 (H)Comment: Testing | 65 - 99 mg/dL | EXTERNAL | | | Fasting | performed at [facility], [address] | | LAB | | | | [address], | | | | | | [place] [address] | | | | + + + + + + | BUN | 21Comment: Testing | 8 - 25 mg/dL | EXTERNAL | | | | performed at [facility], [address] | | LAB | | | | [address], | | | | | | [place] [address] | | | | + + + + + + | Creatinine | 0.72Comment: Testing | 0.50 - 1.00 | EXTERNAL | | | | performed at [facility], [address] | mg/dL | LAB | | | | [address], | | | | | | [place] [address] | | | | + + + + + + | BUN/Creatin | 29Comment: Testing | | EXTERNAL | | | ine Ratio | performed at [facility], [address] | | LAB | | | | [address], | | | | | | [place] [address] | | | | + + + + + + | Calcium | 9.0Comment: Testing | 8.5 - 10.5 | EXTERNAL | | | | performed at [facility], [address] | mg/dL | LAB | | | | [address], | | | | | | [place] [address] | | | | + + + + + + | Protein, | 6.2 (L)Comment: Testing | 6.3 - 8.2 g/dL | EXTERNAL | | | Total | performed at [facility], [address] | | LAB | | | | [address], | | | | | | [place] [address] | | | | + + + + + + | Albumin | 3.6Comment: Testing | 3.3 - 4.8 g/dL | EXTERNAL | | | | performed at [facility], [address] | | LAB | | | | [address], | | | | | | [place] [address] | | | | + + + + + + | Globulin | 2.6Comment: Testing | 1.3 - 4.9 g/dL | EXTERNAL | | | | performed at [facility], [address] | | LAB | | | | [address], | | | | | | [place] [address] | | | | + + + + + + | A/G Ratio | 1.4Comment: Testing | 1.0 - 2.4 | EXTERNAL | | | | performed at [facility], [address] | | LAB | | | | [address], | | | | | | [place] [address] | | | | + + + + + + | Bilirubin | 0.6Comment: Testing | 0.1 - 1.5 mg/dL | EXTERNAL | | | Total | performed at [facility], [address] | | LAB | | | | [address], | | | | | | [place] [address] | | | | + + + + + + | ALP, | 106Comment: Testing | 35 - 115 U/L | EXTERNAL | | | External | performed at [facility], [address] | | LAB | | | | [address], | | | | | | [place] [address] | | | | + + + + + + | AST | 43Comment: Testing | 10 - 45 U/L | EXTERNAL | | | | performed at [facility], [address] | | LAB | | | | [address], | | | | | | [place] [address] | | | | + + + + + + | ALT | 42Comment: Testing | 10 - 65 U/L | EXTERNAL | | | | performed at [facility], [address] | | LAB | | | | [address], | | | | | | [place] [address] | | | | + + + [...] | | | | | | at [facility], [address] | | | | | | [address], | | | | | | [place] [address] | | | | + + + [...] | | | | | performed at [facility] | | | | | | [facility];[place], [place] | | | | | | [address] | | | | + + + [...] | | | | | ONLY, -COMPUTER ([id number]), | | | | | | editorial specialist Bruna Torre | | | | | | (25) on 12/09/2014 | | | | | | 1:40:05 AM | | | | + + + + + + + + | Specimen | + + | | + + + + + | Narrative | Performed At | + + + | [facility] | EXTERNAL LAB | + + [...]
--- OUTSIDE RECORDS SUMMARY | ~2019-12-13 | XMS | Encounter Summary ---
Demographics + + + | Address | [address] | | | [place] [address] | + + + | Home Phone [...] [place], [place] | | | | | [address] | | + + + + + | Mercedes Lemus | ECON | [place] | | | | | [address] | | + + + + + Care Team Providers + +------+ + | Care Guard Lieutenant Name | Role | Phone | + +------+ + | Martell Hilario NP | PCP | | + +------+ + Encounter Details +--------+ + + + + | Date | Type | Department | Care Team | Description | +--------+ + + + + | 02/20/ | Orders Only | [facility] | Provider, | | | 2019 | | SYSTEM GENERIC OP | MD [address] | | | | | CONVERSION [address] | [address] | | | | | [address] [place], [place] | [place] [address] | | | | | [address] | | | | | | [phone] | | | +--------+ + + + [...]
--- OUTSIDE RECORDS SUMMARY | ~2019-12-13 | XMS | Encounter Summary ---
Demographics + + + | Address | [address] | | | [place] [address] | + + + | Home Phone [...] [place], [place] | | | | | [address] | | + + + + + | Mercedes Lemus | ECON | [place] | | | | | [address] | | + + + + + Care Team Providers + +------+ + | Care Radio Repairer Name | Role | Phone | + +------+ + PCP | Unavailable | + +------+ + Encounter Details +--------+ + + + + | Date | Type | Department | Care Team | Description | +--------+ + + + + | 05/10/ | Hospital | [facility] | Delbert Castro | | | 2011 - | Encounter | MED CTR IRF [address] | [address] | | | | | [place], | [place] | | | 05/16/ | | [place] [address] | [place] [address] | | | 2011 | | [phone] | [phone] | | | | | | | [...] Delbert Castro MD - 05/16/2012 11:09 AM [facility] [place] [address] Patient Name: TREE COLLADO Provider: Fercho Castro MD Unit [facility] [id number] [facility] : 1940 ADMISSION DATE: 05/10/2012 [...] once she was medically ready, she was magñaa sferred to [facility] for further rehabilitation o n 05/11/2012. She was minimal assistance for lower body dressing, moderate assistance in to ileting and in and out of bed, prior to admission to rehabilitation. PERTINENT POSITIVES ON PHYSICAL EXAMINATION ON ADMISSION: Shoulder strength 4, elbow stren gth and rn integrated 4+, right hip strength 3, left hip [...] able to be discharged home in her [facility] care actually sooner than I expected. Her [...] to manage her at the level of [facility], and thus she was able to be discharge home to [place] about 2 days earlier than I expe [...] given #50 of t he Percocet. 10. [place] for more moderate pain. FOLLOWUP: Follow up with Ron Mccoy DO, in approximately 2 weeks. No home health or ou tpatient therapies are set up, the patient did not feel she needed them or wanted them. Fol low up with Dr. Bo in 3 weeks. DICTATED BY: Fercho Castro MD, PHD Physiatry JOB #: [id number] EXT JOB #:[id number] cc: Ron Mccoy, DO Jose Juan Bo MD <<Signature on File>> Fercho Castro MD05/16/12 6762 < documented in this encounter Plan of [...] - 1.030 | [facility] | | | [place], | | | [facility] | | [...] + | [facility] | [address] | [place], [place] | [phone] | | [facility] | | [address] | | | - LABORATORY | | | | + + + + + | [facility] | [address] | [place] | | | [facility] | | [address] [place] [address] | | | - LABORATORY | | [...] [address] | [place] | [phone] | | [facility] | | [address] | | | - LABORATORY | | | | + + + + + | [facility] | [address] | [place] | | | [facility] | | [address] | | | - LABORATORY [...] + | [facility] | [address] | [place], [place] | [phone] | | [facility] | | [address] | | | - LABORATORY | | | | + + + + + | [facility] | [address] | [place], [place] | | | [facility] | | [address], [facility] | | | - [...] [address] | [place] | [phone] | | [facility] | | [address] | | | - LABORATORY | | | | + + + + + | [facility] | [address] | [place] | | | [facility] | | [address], [facility] | | | - [...] - 1.030 | [facility] | | | [place], | | | [facility] | | [...] + | [facility] | [address] | [place], [place] | [phone] | | [facility] | | [address] | | | - LABORATORY | | | | + + + + + | [facility] | [address] | [place], [place] | | | [facility] | | [id number] [place] [address] | | | - LABORATORY | | | | + + + + + documented in this encounter Visit Diagnoses Not on filedocumented in this encounter"
--- OUTSIDE RECORDS SUMMARY | ~2019-12-13 | XMS | Encounter Summary ---
Demographics + + + | Address | [address] | | | [place] [address] | + + + | Home Phone [...] [place], [place] | | | | | [address] | | + + + + + | Mercedes Lemus | ECON | [place] | | | | | [address] | | + + + + + Care Team Providers + +------+ + | Care Clothes Drier Repairer Name | Role | Phone | [...] + + | 11/05/ | Office | [facility] | Jose Juan Bo | Status post lumbar | | 2012 | Visit | NEUROSURGERY [address] | [facility] [address] [place] | spinal fusion | | | | [address] | [place], [place] | (Primary Dx) | | | | [place] | [address] | | | | | [address] | [phone] | | | | | [phone] | | | +--------+---------+ + + + [...] the original. Jose Juan Bo MD [address] [facility], [address] [place] [address] FAX: NEUROSURGERY FOLLOW-UP CHIEF COMPLAINT: Chief Complaint [...] [facility] | [place] | | Department [address] [facility] [place] | [facility] | | [ rep ct street[address]] [ rep ct [facility] | | st zip] Signed | - IMAGING | | | | | Patient Name: TREE COLLADO Physician: | | | ARRE.01 : 1940 Age: 72 Sex: F Unit #: [id number] | | | Exam Date: 11/05/12 Location: [facility] | | | Report #: [id number] Page: | | | %(RAD)RES..mtdd.print.filter("pg") of %(RAD) | | | RES..mtdd.print.filter("tpg") | | | | | | Accession Number: [id number] | | | LUMBAR SPINE LIMITED X-RAY, [...] Transcribed Date/Time: | | | 11/05/2012 11:58 Director Of Estate: | | | <<Signature on File>> | | | Parker | | | Gisell Deluna MD11/05/121943 <Electronically signed by Parker Jameson | | | Regi LOPEZ> Parker Deluna MD 11/05/12 1102 | | | Director Of Estate: [employer] Utrgptqzhuisw13/15/13 1158 | | | Jose Juan Bo MD | | + + + + + + + + | Performing | Address | City/State/Zipcode | Phone Number | | Organization | | | | + + + + + | [facility] | [address] | [place] | [phone] | | [facility] | | [address] | | | - IMAGING | | | | + + + + + documented in this encounter Visit Diagnoses + + | Diagnosis | + + | Status post lumbar spinal fusion - Primary Arthrodesis status | + + documented in this encounter
--- OUTSIDE RECORDS SUMMARY | ~2019-12-13 | XMS | Encounter Summary ---
Demographics + + + | Address | [address] | | | [place] [address] | + + + | Home Phone [...] [place], [place] | | | | | [address] | | + + + + + | Mercedes Lmeus | ECON | [place] | | | | | [address] | | + + + + + Care Team Providers + +------+ + | Care On Air Host Name | Role | Phone | + [...] + + | 08/03/ | Emergency | [facility] | Parker Arellano, | Cough (Primary Dx); | | 2019 | | MEDICAL CENTER | [address] | Rib pain on right | | | | EMERGENCY CENTER | [place] [address] | side | | | | [address] | [phone] | | | | | [place], [place] | | | | | | [address] | | | | | | [phone] | | | +--------+ + + + [...] through Care Everywhere.Chest Pain, Unc ertain Cause (Bhutanese)Cough, Chronic, Uncertain Cause (Adult) (Bhutanese)documented in this en counter Medications at Time [...] U?MRN: | | | | | | [id number] | | | [id number] | | | riteri | | | [...] | | | St. | | | [place] | | | y | | | [...] | | | St | | | [place] | | | y | | | [...] St | | | | | | [place] | | | y | | | [...] | | | St. | | | [place] | | | y | | | [...] | | | St. | | | [place] | | | y H. | | [...] | | | St. | | | [place] | | | y H. | | [...] | | | St. | | | [place] | | | y H. | | [...] | | | St. | | | [place] | | | y H. | | [...] | | | St. | | | [place] | | | y H. | | [...] | | MARTELL | | | R, BRAILLE TYPIST | | | Nurse | | | [...] | | n | | | [place] | | | | | | Orthop [...] - 1.030 | [facility] | | | [place], | | | LABORATORY | | | [...] | | | Urine | performed at [facility] | | LABORATORY | | | | [address];[place] | | | | | | [address] | | | | + + + [...] | + + + + + | [facility] | [address] | [place] [address] | [phone] | + + + + + documented [...]
[~2019-12-13 11:15] MED LIST changes: +POTASSIUM CHLO10 MEQ PO; +REGLAN10 MG PO
--- OUTSIDE RECORDS SUMMARY | 2019-12-13 11:18 | XMS ---
PreManage Notification: TREE GARCIA Security Butcher Head Events No recent Security Events currently on file CRITERIA MET - [facility] - Has Care Guidelines CARE PROVIDERS KING CAPUTO Nurse Practitioner: Family 03/21/2019-Current PHONE: [phone] Artis has no Care Guidelines for this patient. Care History Medical/Surgical 04/02/2019 [facility] - PATIENT HAS PCP FOLLOW UP APT ON 04/18/19 WITH KING CAPUTO. - Patient is currently established with [facility]. If patient is seen in the ED during business hours. Please contact CHWs at [facility]. Care Recommendation: This patient has [...] care. E.D. VISIT COUNT (12 MO.) [address] [place] [address] [place] TOTAL 7 NOTE: Visits indicate total known visits. ED/UCC VISIT TRACKING (12 MO.) 12/13/2019 11:15 [facility] [place] TYPE: Emergency COMPLAINT: - EYE PAIN 08/03/2019 11:[address] 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 - Other intermediate (current) drug therapy - Personal history of nicotine dependence - Headache - Hyperlipidemia, unspecified - Essential (primary) hypertension - Viral infection, unspecified 05/29/2019 07:45 [facility] [place] TYPE: Emergency COMPLAINT: - VOMITING DIAGNOSES: - Nausea with vomiting, unspecified - termite exterminator helper (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 hypoglycemic drugs - Other terminal clerk (current) drug therapy - Essential (primary) hypertension - Hyperlipidemia, unspecified - Type 2 diabetes mellitus without complications - Personal history of nicotine dependence 04/04/2019 16:57 [facility] [place] TYPE: Emergency COMPLAINT: - HEAD/ LEFT ELBOW INJURY DIAGNOSES: - nursing home (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 hypoglycemic drugs - Essential (primary) hypertension - Unspecified injury of head, initial encounter - Other intermediate (current) drug therapy - Abrasion of left elbow, initial encounter - Type 2 diabetes mellitus without complications [...] level from slipping, tripping and stumbling with - Personal history of nicotine dependence - Hyperlipidemia, unspecified - Allergy status to narcotic agent status - termite exterminator helper (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
[2019-12-13] MEDS ORDERED: ERYTHROMYCIN1 GM OP (12:27)
== END 2019-12-13 12:48 | disposition home or self-care (01) ==
LOC: ED 11:15
DX: H57.12 Ocular pain, left eye (principal); H57.89 Other specified disorders of eye and adnexa; E11.9 Type 2 diabetes mellitus without complications; I10 Essential (primary) hypertension; E78.5 Hyperlipidemia, unspecified; Z87.891 Personal history of nicotine dependence; Z79.899 Other long term (current) drug therapy
CPT/HCPCS: 99283

== ENCOUNTER 2020-01-18 16:10 | Emergency (ER) | payer MEDICARE ==
[~2020-01-18] VITALS: Ht 162.6 cm; Wt 88.5 kg
--- OUTSIDE RECORDS SUMMARY | ~2020-01-18 | XMS | Encounter Summary ---
Demographics + + + | Address | [address] | | | [place] [address] | + + + | Home Phone | | + + + | Preferred Language | Unknown | + + + | Marital Status | | + + + | Druze Affiliation | [id number] | + + + | Race | Unknown | + + + | Ethnic Group | Unknown | + + + Author + + + | Author | [facility] | | | and [place] | + + + | Organization | [facility] | | | [...] [place], [place] | | | | | [address] | | + + + + + | Mercedes Lemus | ECON | [place] | | | | | [address] | | + + + + + Care Team Providers + +------+ + | Care Waterproof Bag Sewer Name | Role | Phone | + +------+ + | Martell Hilario NP | PCP | | + +------+ + Reason for Visit + + + | Reason | Comments | + + + | Flank Pain | x couple days. left sided flank pain. | + + + Encounter Details +--------+ + + + + | Date | Type | Department | Care Team | Description | +--------+ + + + + | 08/03/ | Emergency | [facility] | Parker Arellano, | Cough (Primary Dx); | | 2019 | | MEDICAL CENTER | [address] | Rib pain on right | | | | EMERGENCY CENTER | [place] [address] | side | | | | [address] | [phone] | | | | | [place], [place] | | | | | | [address] | | | | | | [phone] | | | +--------+ + + + + Social History + + + +--------+ + | Tobacco Use | Types | Packs/Day | Years | Date | | | | | Used | | + + + +--------+ + | Never Smoker | Cigarettes | 1.5 | 20 | Quit: 11/05/1989 | + + + +--------+ + + +---+---+---+ | Smokeless Tobacco: | | | | | Never Used | | | | + +---+---+---+ + + +---------+ + | Alcohol Use | Drinks/Week | oz/Week | Comments | + + +---------+ + | Yes | 0 Standard drinks | 0.0 | Alcoholic | | | or equivalent | | Drinks/day: socially | + + +---------+ + + + + | Sex Assigned at | Date Recorded | | | | + + + | Not on file | | + + + documented as of this encounter Last Filed Vital Signs + + + + + | Vital Sign | Reading | Time Taken | Comments | + + + + + | Blood Pressure | 161/80 | 08/03/2019 1:26 PM | | | | | PST | | + + + + + | Pulse | 97 | 08/03/2019 1:26 PM | | | | | PST | | + + + + + | Temperature | 37.2 C (99 F) | 08/03/2019 11:16 AM | | | | | PST | | + + + + + | Respiratory Rate | 19 | 08/03/2019 1:26 PM | | | | | PST | | + + + + + | Oxygen Saturation | 95% | 08/03/2019 1:26 PM | | | | | PST | | + + + + + | Inhaled Oxygen | - | - | | | Concentration | | | | + + + + + | Weight | 88 kg (194 lb 0.1 | 08/03/2019 11:16 AM | | | | oz) | PST | | + + + + + | Height | - | - | | + + + + + | Body Mass Index | 33.3 | 04/11/2018 10:50 AM | | | | | PDT | | + + + + + documented in this encounter Discharge Instructions AttachmentsThe following attachments cannot be sent through Care Everywhere.Chest Pain, Unc ertain Cause (Bulgarian)Cough, Chronic, Uncertain Cause (Adult) (Bulgarian)documented in this en counter Medications at Time of Discharge + + + +---------+ + + | Medication | Sig | Dispensed | Refills | Start | End Date | | | | | | Date | | + + + +---------+ + + | | Take 1 tablet by | | 0 | 10/02/19 | | | acetaminophen-codein | mouth every 6 (six) | | | 19 | | | e (TYLENOL #3) | hours as needed for | | | | | | 300-30 mg per tablet | Pain. Do not take | | | | | | | Tylenol with this | | | | | | | medication. It has | | | | | | | Tylenol in it. | | | | | + + + +---------+ + + | Cholecalciferol | Take 1 tablet by | | 0 | | | | (VITAMIN D-1000 MAX | mouth Daily. | | | | | | ST PO) | | | | | | + + + +---------+ + + | Coenzyme Q10 | Take 1 capsule by | | 0 | | | | (COQ10) 100 MG CAPS | mouth Daily. | | | | | + + + +---------+ + + | cyclobenzaprine | Take 5 mg by mouth | | 0 | | | | (FLEXERIL) 5 MG | as needed for Muscle | | | | | | tablet | spasms. | | | | | + + + +---------+ + + | | Take by mouth. | | 0 | | | | Hydrocodone-Acetamin | | | | | | | ophen (NORCO PO) | | | | | | + + + +---------+ + + | lisinopril | Take 20 mg by mouth | | 0 | | | | (PRINIVIL, ZESTRIL) | Daily. | | | | | | 20 mg tablet | | | | | | + + + +---------+ + + | meloxicam (MOBIC) | Take 15 mg by mouth | | 0 | | | | 15 mg tablet | Daily. | | | | | + + + +---------+ + + | metFORMIN | Take 500 mg by mouth | | 0 | | | | (GLUCOPHAGE) 500 mg | daily (with | | | | | | tablet | breakfast). | | | | | + + + +---------+ + + | omeprazole | Take 20 mg by mouth | | 0 | | | | (PRILOSEC) 20 mg | every morning | | | | | | capsule | (before breakfast). | | | | | + + + +---------+ + + | | Take 1 tablet by | | 0 | | | | oxyCODONE-acetaminop | mouth every 4 hours | | | | | | hen (PERCOCET) 5-325 | as needed for Pain. | | | | | | mg per tablet | | | | | | + + + +---------+ + + | PARoxetine (PAXIL) | Take 20 mg by mouth | | 0 | | | | 20 mg tablet | nightly. | | | | | + + + +---------+ + + | ROSUVASTATIN | Take by mouth. | | 0 | | | | CALCIUM PO | Patient takes | | | | | | | medication on | | | | | | | Monday, Monday, | | | | | | | and Monday | | | | | + + + +---------+ + + | zolpidem (AMBIEN) | Take 5 mg by mouth | | 0 | | | | 10 mg tablet | nightly as needed. | | | | | + + + +---------+ + + documented as of this encounter ED Notes Parker Arellano MD - 08/03/2019 2:05 PM PSTFormatting of this note might be different fro m the original. [facility] Department of Emergency Medicine History of Present Illness Patient Identification Mary Collado is a 79 y.o. female. Patient presented to the Emergency Department by: Car Chief Complaint Chief Complaint Patient presents with Flank Pain x couple days. left sided flank pain. 79 y.o. female presenting with a chief complaint of flank pain Location: left upper Onset/Duration: several days Quality: achy Severity: moderate Associated Symptoms: cough Context: She has been coughing now for a week. She started having pain over the left later al chest wall left lower ribs. The pain is worse with any type of movement. The pain is wo rse with coughing. The pain is fine when she is still. PCP: Martell Hilario NP Past Medical History: Diagnosis Date Abnormal kidney function Actinic keratosis Acute bronchitis Acute sialoadenitis Arthritis Cellulitis of ankle RIGHT Cervical dysphagia Cervical spondylosis Chronic liver disease Coronary artery disease Degeneration of intervertebral disc of lumbar region Depression Diabetes mellitus, type 2 (HCC) Diverticulosis Dyslipidemia Facet syndrome History of blood transfusion Hyperlipidemia Hyperlipidemia Hypertension Hypertension Hypertension, benign Lumbar radiculopathy Lumbar spondylosis Lymphadenopathy Miscarriage 1967, 1968,1977 Neoplasm Osteoarthritis S/P lumbar fusion 10/11/2016 Sciatica Seborrheic keratoses Skin neoplasm Spondylosis of lumbar region without myelopathy or radiculopathy 10/11/2016 Type 2 diabetes mellitus (HCC) UTI (urinary tract infection) Xerosis cutis Past Surgical History: Procedure Laterality Date COLONOSCOPY 2013 ECTOPIC SURGERY 1973 KNEE SURGERY Left 11/21/2016 [facility] LUMBAR DISC SURGERY 2012 L4-S1 arthrodesis and pedicle screw fixation and decompression SHOULDER ARTHROPLASTY Right 2008 SHOULDER ARTHROPLASTY Left 2009 Skin Lesion Resected TONSILLECTOMY AND ADENOIDECTOMY TOTAL HIP ARTHROPLASTY 2001 Prior to Admission medications Medication Sig Start Date End Date Taking? Authorizing Provider acetaminophen-codeine (TYLENOL #3) 300-30 mg per tablet Take 1 tablet by mouth every 6 (six ) hours as needed for Pain. Do not take Tylenol with this medication. It has Tylenol in it. 10/01/18 Historical Provider, Cholecalciferol (VITAMIN D-[address] PO) Take 1 tablet by mouth Daily. Historical Prov MD nain Coenzyme Q10 (COQ10) 100 MG CAPS Take 1 capsule by mouth Daily. Historical Provider, cyclobenzaprine (FLEXERIL) 5 MG tablet Take 5 mg by mouth as needed for Muscle spasms. H istorical Provider, Hydrocodone-Acetaminophen (NORCO PO) Take by mouth. Historical Provider, lisinopril (PRINIVIL, ZESTRIL) 20 mg tablet Take 20 mg by mouth Daily. Historical Daniella gillette MD meloxicam (MOBIC) 15 mg tablet Take 15 mg by mouth Daily. Historical Provider, metFORMIN (GLUCOPHAGE) 500 mg tablet Take 500 mg by mouth daily (with breakfast). Hist orical Provider, omeprazole (PRILOSEC) 20 mg capsule Take 20 mg by mouth every morning (before breakfast). Historical Provider, oxyCODONE-acetaminophen (PERCOCET) 5-325 mg per tablet Take 1 tablet by mouth every 4 hours as needed for Pain. Historical Provider, PARoxetine (PAXIL) 20 mg tablet Take 20 mg by mouth nightly. Historical Provider, ROSUVASTATIN CALCIUM PO Take by mouth. Patient takes medication on Monday, Monday, and Monday Historical Provider, zolpidem (AMBIEN) 10 mg tablet Take 5 mg by mouth nightly as needed. Historical Provider , Allergies Allergen Reactions Hydromorphone Nausea And Vomiting Social History Socioeconomic History Marital status: Spouse name: Law Number of children: 2 Years of education: AA Highest education level: Not on file Occupational History Not on file Social Needs Financial resource strain: Not on file Food insecurity: Worry: Not on file Inability: Not on file Transportation needs: Medical: Not on file Non-medical: Not on file Tobacco Use Smoking status: Never Smoker Smokeless tobacco: Never Used Substance and Sexual Activity Alcohol use: Yes Alcohol/week: 0.0 standard drinks Comment: Alcoholic Drinks/day: socially Drug use: No Comment: Drug use: No Sexual activity: Never Lifestyle Physical activity: Days per week: Not on file Minutes per session: Not on file Stress: Not on file Relationships Social connections: Talks on phone: Not on file Gets together: Not on file Attends latter-day service: Not on file Active member of club or organization: Not on file Attends meetings of clubs or organizations: Not on file Relationship status: Not on file Intimate partner violence: Fear of current or ex partner: Not on file Emotionally abused: Not on file Physically abused: Not on file Forced sexual activity: Not on file Other Topics Concern Not on file Social History Narrative Not on file Family History Problem Relation Age of Onset Gout Father Colon cancer Father Cancer Mother Alcohol abuse Mother Colon cancer Paternal Grandfather No known problems Paternal Grandmother Stroke Maternal Grandfather Cancer Maternal Grandmother Breast cancer Sister Cancer Sister Bladder Cancer Sister Uterine No known problems Child No known problems Child No known problems Paternal Uncle No known problems Paternal Aunt No known problems Maternal Uncle Cancer Maternal Aunt Review of Systems Constitutional: Negative for fever Eyes: Negative for vision changes ENT: Negative for earache CV positive for chest pain, Resp: Negative for [id number], positive for cough GI: Negative for abdominal pain, nausea, vomiting, diarrhea : Negative for urinary problems Musculoskeletal: Negative for back pain, joint pain Skin: Negative for rash Neuro/Psych: Negative for headache Physical Exam Temp: 37.2 C (99 F) Pulse: 107 Resp: 17 BP: 170/81 SpO2: 97 % Vital signs interpretation: Mild tachycardia General: Alert, in no apparent distress Eyes: Normal inspection, pupils equal and round, non-icteric ENT: MMM, NCAT Neck: Normal inspection, Supple CV: Mild tachycardia, no murmurs. Tenderness palpation of left lower lateral chest wall. No rashes to suggest shingles Respiratory: Lungs clear to auscultation bilaterally, Normal WOB Abdomen: Soft, non-tender, non-distended, No rebound or guarding Ext: No edema or trauma noted Skin: Warm and dry, No rash Neuro: Normal facial symmetry, Moving extremities spontaneously Medical Decision Making and Emergency Department Course ED Department Course Patient presents to ED with complaints of flank/chest wall pain. Labs/EKG/Imaging: Chest x-ray, rib x-rays are negative for acute process. I do not feel the patient symptoms are indicative of ACS. I discussed all ED results and my clinical impression with the patient. Patient is ready fo r discharge. I advised patient to follow up with a PCP and we discussed the emergent signs a nd symptoms that would necessitate a return to ED. All questions and concerns addressed. Vitals: 08/03/19 1116 08/03/19 1326 BP: 170/81 161/80 Pulse: 107 97 Resp: 17 19 Temp: 37.2 C (99 F) TempSrc: Temporal SpO2: 97% 95% Weight: 88 kg (194 lb 0.1 oz) Medications - No data to display Records Reviewed Old Medical Records Laboratory Evaluation Results Procedure Component Value Ref Range Date/Time Urinalysis With Microscopic [[id number]] (Abnormal) Collected: 08/03/19 1148 Order Status: Completed Specimen: Urine, Clean Catch Updated: 08/03/19 1156 Color, UA YELLOW Clarity, UA CLEAR Specific Latimer, Urine 1.015 1.002 - 1.030 Leukocyte esterase, UA NEGATIVE NEG Nitrite, UA NEGATIVE NEG Urobilinogen, Ur NORMAL <1.6 mg/dL Protein, Urine (mg/dL) NEGATIVE NEG mg/dL pH, Urine 5.0 5.0 - 8.0 Blood, UA SMALL NEG Ketones, UA NEGATIVE NEG mg/dL Bilirubin, UA NEGATIVE NEG Glucose, Ur NEGATIVE NEG mg/dL WBC UA 0-2 0 - 5 /hpf RBC UA 0-2 0 - 5 /hpf SQUAMOUS EPITHELIAL UA 11-15 /lpf BACTERIA UA 1+ NONE MUCUS UA 1+ I personally reviewed the lab results and they have been posted to the chart. Pertinent po sitive and negative findings have been addressed appropriately. Radiology Evaluation Imaging Results XR Ribs Left w PA Chest (Final result) Result time 08/03/19 13:08:49 Final result by Joe Aldana MD (08/03/19 13:08:49) Impression: Negative left ribs and PA chest. Signed by: Christiano Aldana Jeffrey Sign Date/Time: 08/03/2019 1:08 PM Narrative: LEFT RIBS THREE-VIEWS AND PA CHEST CLINICAL INFORMATION: Flank pain. COMPARISON: None FINDINGS: Heart, lungs and vessels normal. No pneumothorax, pleural effusion or adenopathy. No displaced left rib fractures. Discharge Diagnosis: 1. Cough 2. Rib pain on right side Disposition: ED Disposition Discharge Stable Follow-up Information Schedule an appointment as soon as possible for a visit with Martell Hilario NP. Specialty: Nurse Practitioner Contact information: [address] [facility] [address] [place] [address] [facility]. Specialty: Emergency Medicine Why: If symptoms worsen Contact information: [address] [facility] [address] Discharge Medications: Dictation software, [employer], used which may contain error for similar sounding words even af ter review. Personal communication requested for any clarification. MD Parker Kahn MD 08/03/19 1405 documented in this en counter Plan of Treatment + +------+--------+ + + | Name | Type | Priori | Associated Diagnoses | Date/Time | | | | ty | | | + +------+--------+ + + | ED INFORMATION | CARLITA | Routin | | 08/03/2019 11:12 AM | | EXCHANGE | | e | | PST | + +------+--------+ + + documented as of this encounter Procedures + +--------+ + + + | Procedure Name | Priori | Date/Time | Associated Diagnosis | Comments | | | ty | | | | + +--------+ + + + | XR RIBS LEFT W PA | NIKOLE | 08/03/2019 | | Results for this | | CHEST | | 1:04 PM | | procedure are in the | | | | PST | | results section. | + +--------+ + + + | URINALYSIS WITH | STAT | 08/03/2019 | | Results for this | | MICROSCOPIC | | 11:48 AM | | procedure are in the | | | | PST | | results section. | + +--------+ + + + | ED INFORMATION | Routin | 08/03/2019 | | | | EXCHANGE | e | 11:12 AM | | | | | | PST | | | + +--------+ + + + +---+--------+ | | | | | Proced | | | ure | | | Note - | | | Scottie, | | | Lab In | | | | | | Hlseve | | | n - | | | | | | 2020 | | | 11:13 | | | AM PST | | | | | | Format | | | ting | | | of | | | this | | | note | | | might | | | be | | | differ | | | ent | | | from | | | the | | | origin | | | al.COL | | | LECTIV | | | E?NOTI | | | FICATI | | | ON?01/ | | | 11/202 | | | 0 | | | 11:12? | | | BANDUC | | | CI, | | | MARILO | | | U?MRN: | | | | | | [id number] | | | [id number] | | | riteri | | | a Met | | | Care | | | Guidel | | | inesSe | | | curity | | | and | | | Safety | | | No | | | recent | | | | | | Securi | | | ty | | | Events | | | | | | curren | | | tly on | | | | | | fileED | | | Care | | | Guidel | | | inesTh | | | ere | | | are | | | curren | | | tly no | | | ED | | | Care | | | Guidel | | | idalia | | | for | | | this | | | patien | | | t. | | | Please | | | check | | | your | | | facili | | | ty's | | | medica | | | l | | | record | | | s | | | system | | | .Care | | | Histor | | | yMedic | | | al/Rachel | | | [email or web address] | | | /10/19 | | | 12:00 | | | AM | | | [facility] | | | al | | | PATIEN | | | T HAS | | | PCP | | | FOLLOW | | | UP | | | APT ON | | | | | | 09/26/ | | | 19 | | | WITH | | | [facility] | | | [facility] | | | ER. | | | Patien | | | t is | | | curren | | | tly | | | establ | | | ished | | | with | | | St | | | [facility] | | | . If | | | patien | | | t is | | | seen | | | in the | | | ED | | | during | | | | | | busine | | | ss | | | hours. | | | | | | Please | | | | | | contac | | | t [facility] at [facility] | | | | | [facility] | | | Clinic | | | .Care | | | Recomm | | | endati | | | on:Thi | | | s | | | patien | | | t has | | | had 5 | | | or | | | more | | | Emerge | | | ncy | | | Depart | | | ment | | | visits | | | in | | | the | | | last | | | 12 | | | months | | | .? | | | Patien | | | t | | | requir | | | es | | | educat | | | ion on | | | the | | | scope | | | and | | | purpos | | | e of | | | the ED | | | as an | | | acute | | | care | | | provid | | | er not | | | a | | | Primar | | | y Care | | | | | | Provid | | | er and | | | | | | should | | | not | | | be | | | utiliz | | | ed for | | | | | | chroni | | | c | | | condit | | | ions.? | | | These | | | are | | | guidel | | | idalia | | | and | | | the | | | provid | | | er | | | should | | | | | | exerci | | | se | | | clinic | | | al | | | judgme | | | nt | | | when | | | provid | | | ing | | | care.P | | | rescri | | | ption | | | Drug | | | Report | | | (12 | | | Mo.)PD | | | MP | | | query | | | found | | | no | | | report | | | .E.D. | | | Visit | | | Count | | | (12 | | | mo.)Fa | | | cility | | | | | | Visits | | | Low | | | [facility] | | | | | | [facility] | | | | | | [facility] | | | al | | | Medica | | | l | | | Center | | | 2 0 | | | [facility] | | [facility] | | | al 5 0 | | | Total | | | 7 0 | | | Note: | | | Visits | | | | | | indica | | | te | | | total | | | known | | | visits | | | . | | | Medica | | | id Low | | | | | | Acuity | | | Dx | | | are | | | the | | | number | | | of | | | primar | | | y | | | diagno | | | ses on | | | the | | | Medica | | | id's | | | Low | | | Acuity | | | dx | | | list. | | | | | | Recent | | | | | | Emerge | | | ncy | | | Depart | | | ment | | | Visit | | | [facility] | | | yDate | | | Facili | | | ty | | | City | | | State | | | Type | | | Diagno | | | ses or | | | Chief | | | | | | Compla | | | int | | | Jay | | | 11, | | | 2020 | | | [facility] | | | | | | [facility] | | | al | | | [facility] | | | [place] | | | [place] | | | Emerge | | | ncy | | | Nov 7, | | | 2019 | | | [facility] | [facility] | | | [place] | | | [place] | | | Emerge | | | ncy | | | | | | Headac | | | he | | | Viral | | | infect | | | ion, | | | unspec | | | ified | | | 1 | | | Type 2 | | | | | | diabet | | | es | | | mellit | | | us | | | withou | | | t | | | compli | | | cation | | | s | | | Long | | | term | | | (curre | | | nt) | | | use of | | | oral | | | hypogl | | | ycemic | | | drugs | | | | | | Other | | | long | | | term | | | (curre | | | nt) | | | drug | | | therap | | | y | | | Person | | | al | | | histor | | | y of | | | nicoti | | | ne | | | depend | | | ence | | | | | | Hyperl | | | ipidem | | | ia, | | | unspec | | | ified | | | | | | Essent | | | ial | | | (prima | | | ry) | | | hypert | | | ension | | | Nov | | | 6, | | | 2019 | | | [facility] | | | [place] | | | [place] | | | Emerge | | | ncy | | | | | | Nausea | | | with | | | vomiti | | | ng, | | | unspec | | | ified | | | | | | Long | | | term | | | (curre | | | nt) | | | use of | | | oral | | | hypogl | | | ycemic | | | drugs | | | | | | Other | | | long | | | term | | | (curre | | | nt) | | | drug | | | therap | | | y | | | Essent | | | ial | | | (prima | | | ry) | | | hypert | | | ension | | | | | | Hyperl | | | ipidem | | | ia, | | | unspec | | | ified | | | 1 | | | Type 2 | | | | | | diabet | | | es | | | mellit | | | us | | | withou | | | t | | | compli | | | cation | | | s | | | Person | | | al | | | histor | | | y of | | | nicoti | | | ne | | | depend | | | ence | | | Sep | | | 12, | | | 2019 | | | [facility] | | | [place] | | | [place] | | | Emerge | | | ncy | | | | | | Essent | | | ial | | | (prima | | | ry) | | | hypert | | | ension | | | | | | Unspec | | | ified | | | injury | | | of | | | head, | | | initia | | | l | | | encoun | | | ter | | | Other | | | long | | | term | | | (curre | | | nt) | | | drug | | | therap | | | y | | | Abrasi | | | on of | | | left | | | elbow, | | | | | | initia | | | l | | | encoun | | | ter | | | 1 | | | Type 2 | | | | | | diabet | | | es | | | mellit | | | us | | | withou | | | t | | | compli | | | cation | | | s | | | Fall | | | on | | | same | | | level, | | | | | | unspec | | | ified, | | | | | | initia | | | l | | | encoun | | | ter | | | | | | Hyperl | | | ipidem | | | ia, | | | unspec | | | ified | | | | | | Allerg | | | y | | | status | | | to | | | narcot | | | ic | | | agent | | | status | | | | | | Long | | | term | | | (curre | | | nt) | | | use of | | | oral | | | hypogl | | | ycemic | | | drugs | | | Sep | | | 8, | | | 2019 | | | [facility] | | | [place] | | | [place] | | | Emerge | | | ncy | | | Chief | | | Compla | | | int: | | | CHEST | | | PAIN | | | Aug | | | 29, | | | 2019 | | | [facility] | | | [place] | | | [place] | | | Emerge | | | ncy | | | | | | Contus | | | ion of | | | right | | | knee, | | | | | | initia | | | l | | | encoun | | | ter | | | Fall | | | same | | | lev | | | from | | | slip/t | | | rip w | | | strike | | | agnst | | | oth | | | object | | | , init | | | | | | Person | | | al | | | histor | | | y of | | | nicoti | | | ne | | | depend | | | ence | | | | | | Hyperl | | | ipidem | | | ia, | | | unspec | | | ified | | | | | | Allerg | | | y | | | status | | | to | | | narcot | | | ic | | | agent | | | status | | | | | | Long | | | term | | | (curre | | | nt) | | | use of | | | oral | | | hypogl | | | ycemic | | | drugs | | | 1 | | | Type 2 | | | | | | diabet | | | es | | | mellit | | | us | | | withou | | | t | | | compli | | | cation | | | s | | | Other | | | long | | | term | | | (curre | | | nt) | | | drug | | | therap | | | y | | | Concus | | | wong | | | withou | | | t loss | | | of | | | consci | | | ousnes | | | s, | | | initia | | | l | | | encoun | | | ter | | | | | | Dizzin | | | ess | | | and | | | giddin | | | ess | | | Mar | | | 11, | | | 2019 | | | [facility] | | | | | | [facility] | | | al | | | [facility] | | | [place] | | | [place] | | | Emerge | | | ncy | | | Back | | | Pain | | | | | | Dorsal | | | rodrigue, | | | unspec | | | ified | | | Low | | | back | | | pain | | | Recent | | | | | | Inpati | | | ent | | | Visit | | | [facility] | | | yNo | | | record | | | ed | | | inpati | | | ent | | | visits | | | . Care | | | | | | TeamPr | | | ovider | | | | | | Specia | | | lty | | | Phone | | | Fax | | | Servic | | | e | | | Dates | | | [facility] | | | ER, | | | [facility] | | | R, [employer] | | | Nurse | | | | | | Practi | | | tioner | | | : | | | Family | | | Aug | | | 29, | | | 2019 - | | | | | | Curren | | | t | | | Quintero, | | | | | | Bradle | | | y | | | Emeka | | | MD | | | Primar | | | y Care | | | | | | Curren | | | t | | | or_pra | | | xis | | | Case | | | or | | | Care | | | Manage | | | r | | | Curren | | | t | | | Easter | | | n | | | [place] | | | | | | Orthop | | | edic | | | Surger | | | y and | | | Fractu | | | re | | | Clinic | | | Other | | | | | | Curren | | | t | | | Collec | | | tive | | | Portal | | | This | | | patien | | | t has | | | regist | | | ered | | | at the | | | | | | [facility] | | | | | | Region | | | al | | | Medica | | | l | | | Center | | | | | | Emerge | | | ncy | | | Depart | | | ment | | | For | | | more | | | inform | | | ation | | | visit: | | | | | | https: | | | //secu | | | [email or web address] | | | lectiv | | | emedic | | | [email or web address] | | | /notif | | | [email or web address] | | | [id number] | | | [email or web address] | | | [email or web address] | | | [email or web address] | | | [email or web address] | | | 7a | | | PLEASE | | | NOTE: | | | 1. | | | Any | | | care | | | recomm | | | endati | | | ons | | | and | | | other | | | clinic | | | al | | | inform | | | ation | | | are | | | provid | | | ed as | | | guidel | | | idalia | | | or for | | | | | | histor | | | ical | | | purpos | | | es | | | only, | | | and | | | provid | | | ers | | | should | | | | | | exerci | | | se | | | their | | | own | | | clinic | | | al | | | judgme | | | nt | | | when | | | provid | | | ing | | | care. | | | 2. | | | You | | | may | | | only | | | use | | | this | | | inform | | | ation | | | for | | | purpos | | | es of | | | treatm | | | ent, | | | paymen | | | t or | | | health | | | care | | | operat | | | ions | | | activi | | | ties, | | | and | | | subjec | | | t to | | | the | | | limita | | | tions | | | of | | | applic | | | able | | | Collec | | | tive | | | Polici | | | es. | | | 3. | | | You | | | should | | | | | | consul | | | t | | | direct | | | ly | | | with | | | the | | | organi | | | zation | | | that | | | provid | | | ed a | | | care | | | guidel | | | ine or | | | other | | | | | | clinic | | | al | | | histor | | | y with | | | any | | | questi | | | ons | | | about | | | additi | | | onal | | | inform | | | ation | | | or | | | accura | | | cy or | | | comple | | | teness | | | of | | | inform | | | ation | | | provid | | | ed.? | | | 2019 | | | Collec | | | tive | | | Medica | | | l | | | Techno | | | logies | | | , Inc. | | | - | | | [email or web address] | | | llecti | | | vemedi | | | [email or web address] | | | m | +---+--------+ documented in this encounter Results XR Ribs Left w PA Chest (08/03/2019 1:04 PM PST) + + | Specimen | + + | | + + + + + | Impressions | Performed At | + + + | Negative left ribs and PA chest. Signed by: Christiano Aldana, | [facility] | | Joe Sign Date/Time: 08/03/2019 1:08 PM | | + + + + + + | Narrative | Performed At | + + + | LEFT RIBS THREE-VIEWS AND PA CHEST CLINICAL INFORMATION: | [facility] | | Flank pain. COMPARISON: None FINDINGS: Heart, lungs and | | | vessels normal. No pneumothorax, pleural effusion or adenopathy. | | | No displaced left rib fractures. | | + + + + + | Procedure Note | + + | Scottie, Rad Results In - 08/03/2019 1:12 PM PST | | LEFT RIBS THREE-VIEWS AND PA CHEST | | | | CLINICAL INFORMATION: | | Flank pain. | | | | COMPARISON: | | None | | | | FINDINGS: | | Heart, lungs and vessels normal. No pneumothorax, pleural effusion or | | adenopathy. | | | | No displaced left rib fractures. | | | | IMPRESSION: | | Negative left ribs and PA chest. | | | | | | | | Signed by: Christiano Aldana Jeffrey | | Sign Date/Time: 08/03/2019 1:08 PM | + + + +---------+ + + | Performing | Address | City/State/Zipcode | Phone Number | | Organization | | | | + +---------+ + + | [facility] | | | | + +---------+ + + Urinalysis With Microscopic (08/03/2019 11:48 AM PST) + + + + + + | Component | Value | Ref Range | Performed | Pathologist | | | | | At | Signature | + + + + + + | Color, UA | YELLOW | | [facility] | | | | | | LABORATORY | | + + + + + + | Clarity, UA | CLEAR | | [facility] | | | | | | LABORATORY | | + + + + + + | Specific | 1.015 | 1.002 - 1.030 | [facility] | | | [place], | | | LABORATORY | | | Urine | | | | | + + + + + + | Leukocyte | NEGATIVE | NEG | [facility] | | | esterase, | | | LABORATORY | | | UA | | | | | + + + + + + | Nitrite, UA | NEGATIVE | NEG | [facility] | | | | | | LABORATORY | | + + + + + + | Urobilinoge | NORMAL | <1.6 mg/dL | [facility] | | | n, Ur | | | LABORATORY | | + + + + + + | Protein, | NEGATIVE | NEG mg/dL | [facility] | | | Urine | | | LABORATORY | | | (mg/dL) | | | | | + + + + + + | pH, Urine | 5.0 | 5.0 - 8.0 | [facility] | | | | | | LABORATORY | | + + + + + + | Blood, UA | SMALL (A) | NEG | [facility] | | | | | | LABORATORY | | + + + + + + | Ketones, UA | NEGATIVE | NEG mg/dL | [facility] | | | | | | LABORATORY | | + + + + + + | Bilirubin, | NEGATIVE | NEG | [facility] | | | UA | | | LABORATORY | | + + + + + + | Glucose, Ur | NEGATIVE | NEG mg/dL | [facility] | | | | | | LABORATORY | | + + + + + + | WBC UA | 0-2 | 0 - 5 /hpf | [facility] | | | | | | LABORATORY | | + + + + + + | Red Blood | 0-2 | 0 - 5 /hpf | [facility] | | | Cells, | | | LABORATORY | | | Urine | | | | | + + + + + + | Squamous | 11-15 | /lpf | [facility] | | | Epithelial | | | LABORATORY | | | Cells, | | | | | | Urine | | | | | + + + + + + | Bacteria, | 1+ (A) | NONE | [facility] | | | Urine | | | LABORATORY | | + + + + + + | Mucus, | 1+Comment: Testing | | [facility] | | | Urine | performed at [facility];[address] | | LABORATORY | | | | [address];[place] | | | | | | [address] | | | | + + + + + + + + | Specimen | + + | Urine - Urine | | specimen obtained by | | clean catch | | procedure (specimen) | + + + + + + + | Performing | Address | City/State/Zipcode | Phone Number | | Organization | | | | + + + + + | [facility] | [address] | [place] [address] | [phone] | + + + + + documented in this encounter Visit Diagnoses + + | Diagnosis | + + | Cough - Primary | + + | Rib pain on right side Chest pain, unspecified | + + documented in this encounter Administered Medications + +--------+ +--------+------+------+ | Medication Order | MAR | Action | Dose | Rate | Site | | | Action | Date | | | | + +--------+ +--------+------+------+ | acetaminophen (TYLENOL) tablet | Given | 08/03/19 | 650 mg | | | | 650 mg 650 mg, Oral, ONCE, Sat | | 20 2:15 | | | | | 08/03/19 at 1415, For 1 dose | | PM PST | | | | + +--------+ +--------+------+------+ +---+---+ | | | +---+---+ documented in this encounter"
--- OUTSIDE RECORDS SUMMARY | ~2020-01-18 | XMS | Encounter Summary ---
Demographics + + + | Address | [address] | | | [place] [address] | + + + | Home Phone | | + + + | Preferred Language | Unknown | + + + | Marital Status | | + + + | Jewish Affiliation | 1041 | + + + | Race | Unknown | + + + | Ethnic Group | Unknown | + + + Author + + + | Author | [facility] | | | and [place] | + + + | Organization | [facility] | | | and [...] [place], [place] | | | | | [address] | | + + + + + | Mercedes Lemus | ECON | [place] | | | | | [address] | | + + + + + Care Team Providers + +------+ + | Care Hardness Inspector Name | Role | Phone | + [...] [address] | MD Kelby [address] [place] | spondylolisthesis | | | | [address] | [place] | (Primary Dx) | | | | [place] | [address] | | | | | [address] | [phone] | | | | | [phone] | | | +--------+ + + + [...]
--- OUTSIDE RECORDS SUMMARY | ~2020-01-18 | XMS | Encounter Summary ---
Demographics + + + | Address | [address] | | | [place] [address] | + + + | Home Phone | | + + + | Preferred Language | Unknown | + + + | Marital Status | | + + + | Adventism Affiliation | 1041 | + + + | Race | Unknown | + + + | Ethnic Group | Unknown | + + + Author + + + | Author | [facility] | | | and [place] | + + + | Organization | [facility] | | | [...] [place], [place] | | | | | [address] | | + + + + + | Mercedes Lemus | ECON | [place] | | | | | [address] | | + + + + + Care Team Providers + +------+ + | Care Cook Railroad Name | Role | Phone | + [...] | | | [address] | [place] [address] | | | | | [place] [address] | | | | | | [phone] | | | +--------+ + + + [...]
--- OUTSIDE RECORDS SUMMARY | ~2020-01-18 | XMS | Encounter Summary ---
Demographics + + + | Address | [address] | | | [place] [address] | + + + | Home Phone | | + + + | Preferred Language | Unknown | + + + | Marital Status | | + + + | Caodaism Affiliation | 1041 | + + + [...] [place], [place] | | | | | [address] | | + + + + + | Mercedes Lemus | ECON | [place] | | | | | [address] | | + + + + + Care Team Providers + +------+ + | Care Biomass Facilitator Name | Role | Phone | + +------+ + | Hector Mccoy DO | PCP | | + +------+ + Encounter Details +--------+ + + + + | Date | Type | Department | Care Team | Description | +--------+ + + + + | 06/19/ | Hospital | [facility] | Jose Juan Bo | Status post lumbar | | 2011 - | Encounter | MED CTR XRAY [address] | F[address] | spinal fusion | | | | [place] | [place], [place] | | | 06/21/ | | [place] [address] | [address] | | | 2011 | | [phone] | [phone] | | | | | | | [...] Performed At | + + + | [facility] | [place] | | Department [facility] [address] [facility] | [facility] | | [ rep ct [address]] [ rep ct [facility] | | st zip] Signed | - IMAGING | | | | | Patient Name: MARY COLLADO Physician: | | | ARRE.01 : 1940 Age: 71 Sex: F Unit #: [id number] | | | Exam Date: 06/19/12 Location: [facility] | | | Report #: [id number] Page: | | | %(RAD)RES..mtdd.print.filter("pg") of %(RAD) | | | RES..mtdd.print.filter("tpg") | | | | | | Accession Number: [id number] | | | LUMBAR SPINE CLINICAL HISTORY: [...] Transcribed | | | Date/Time: 06/19/2012 15:31 [facility] Psychiatrist: | | | <<Signature on File>> | | | | | | Johnathan Alford MD06/19/12 1720 <Electronically signed by | | | Johnathan Alford MD> Johnathan Alford MD 06/19/12 | | | 1519 [facility] Psychiatrist: Omedix Fhoopygkawqer14/27/12 1531 | | | Jose Juan Bo MD | | + + + + + + + + | Performing | Address | City/State/[facility] | Phone Number | | Organization | | | | + + + + + | J[facility]IKA [facility] | [address] | [place] | [phone] | | [facility] | | [address] | | | - IMAGING | | | | + + + + + documented in this encounter Visit Diagnoses + + | Diagnosis | + + | Status post lumbar spinal fusion Arthrodesis status | + + documented in this encounter
--- OUTSIDE RECORDS SUMMARY | ~2020-01-18 | XMS | Encounter Summary ---
Demographics + + + | Address | [address] | | | [place] [address] | + + + | Home Phone | | + + + | Preferred Language | Unknown | + + + | Marital Status | | + + + | Zoroastrianism Affiliation | 1041 | + + + | Race | Unknown | + + + | Ethnic Group | Unknown | + + + Author + + + | Author | [facility] | | | and [place] | + + + | Organization | [facility] | [...] [place], [place] | | | | | [address] | | + + + + + | Mercedes Lemus | ECON | [place] | | | | | [address] | | + + + + + Care Team Providers + +------+ + | Care Ship'S Master Name | Role | Phone | + +------+ + | Hector Mccoy DO | PCP | | + +------+ + Encounter Details +--------+ + + + + | Date | Type | Department | Care Team | Description | +--------+ + + + + | 11/05/ | Hospital | [facility] | Jose Juan Bo | Status post lumbar | | 2012 | Encounter | MED CTR XRAY [address] | F[address] | spinal fusion | | | | [place] | [place], [place] | | | | | [place] [address] | [address] | | | | | [phone] | | | | | | | [...] LUMBAR SPINE 2 OR | Routin | 11/05/2012 | Status post lumbar | Results for this | | 3 VW | e | 11:02 AM | spinal fusion | procedure are in the | | | | PDT | | results section. | + +--------+ + + + documented in this encounter Results XR Lumbar Spine 2 or 3 Vw (11/05/2012 11:02 AM PDT) + + | Specimen | + + | | + + + + + | Narrative | Performed At | + + + | [facility] | [place] | | Department [address] [facility] | [facility] | | [ rep ct [address]] [ rep [facility] | | st zip] Signed | - IMAGING | | | | | Patient Name: TREE COLLADO Physician: | | | Oliver : 1940 Age: 72 Sex: F Unit #: [id number] | | | Exam Date: 11/05/12 Location: [facility] | | | Report #: [id number] Page: | | | %(RAD)RES..mtdd.print.filter("pg") of %(RAD) | | | RES..mtdd.print.filter("tpg") | | | | | | Accession Number: [id number] | | | LUMBAR SPINE LIMITED X-RAY, 11/05/2012 CLINICAL HISTORY: | | | STATUS POST LUMBAR FUSION. COMPARISON: 06/19/2012. | | | FINDINGS: Posterior spinal fusion hardware is again seen | | | extending from the levels of L4 through S1, with disk spacers at the | | | intervening levels. Hardware is in stable position. Vertebral body | | | alignment is normal and unchanged, as are vertebral body heights. | | | Bilateral hip prostheses are seen. There is extensive | | | atherosclerotic calcification of the aorta and its branches. | | | IMPRESSION: STABLE L4-5, L5-S1 POSTERIOR PEDICLE SCREW AND | | | INTERBODY FUSIONS, WITHOUT EVIDENCE OF COMPLICATION. | | | Dictated Date/Time: 11/05/2012 11:02 Transcribed Date/Time: | | | 11/05/2012 11:58 Auto Machinist: ELVI | | | <<Signature on File>> | | | Parker | | | Gisell Deluna MD11/05/121943 <Electronically signed by Parker Elena | | Regi LOPEZ> Parker Deluna MD 11/05/12 1102 | | | Auto Machinist: Supercool Schoolchrystal Hbulvmrfrzjeb10/15/13 1158 | | | Jose Juan Bo MD | | + + + + + + + + | Performing | Address | City/State/Zipcode | Phone Number | | Organization | | | | + + + + + | [address] | [address] | [place] | [phone] | | [facility] | | [address] | | | - IMAGING | | | | + + + + + documented in this encounter Visit Diagnoses + + | Diagnosis | + + | Status post lumbar spinal fusion Arthrodesis status | + + documented in this encounter
--- OUTSIDE RECORDS SUMMARY | ~2020-01-18 | XMS | Encounter Summary ---
Demographics + + + | Address | [address] | | | [place] [address] | + + + | Home Phone | | + + + | Preferred Language | Unknown | + + + | Marital Status | | + + + | Episcopal Affiliation | 1041 | + + + | Race | Unknown | + + + | Ethnic Group | Unknown | + + + Author + + + | Author | [facility] | | | and [place] | + + + | Organization | [facility] | | | [...] [place], [place] | | | | | [address] | | + + + + + | Mercedes Lemus | ECON | [place] | | | | | [address] | | + + + + + Care Team Providers + +------+ + | Care Rv Body Mechanic Name | Role | Phone | + +------+ + | Hector Mccoy DO | PCP | | + +------+ + Reason for Visit +--------+--------+ + | Reason | Onset | Comments | | | Date | | +--------+--------+ + | Other | 06/20/ | restrictions | | | 2011 | | +--------+--------+ + Encounter Details +--------+ + + + + | Date | Type | Department | Care Team | Description | +--------+ + + + + | 06/20/ | Telephone | [facility] | Jose Juan Bo | Other (restrictions) | | 2011 | | NEUROSURGERY [address] | [address] | | | | | [address] | [address] [place] | | | | | [place] | [address] | | | | | [address] | [phone] | | | | | [phone] | | | +--------+ + + + [...] Miscellaneous Notes Telephone Encounter - Bonny Decker - 07/31/2012 2:56 PM PSTScheduled in October 2012Electro nically signed by Bonny Decker at 07/31/2012 2:57 PM PSTTelephone Encounter - Deana Bo MD - 07/31/2012 2:27 PM PSTSure!Electronically signed by MD cleopatra Portillo t 07/31/2012 2:27 PM PSTTelephone Encounter - Bonny Decker - 07/31/2012 11:46 AM PSTWould a 6 month post op appointment with you be acceptable? Thank you, Bonny elephone Encounter - Bonny Decker - 06/21/2012 1:10 PM PSTI spoke with Mary and she is feeling well, but is requesting to see before her one year follow-up. When would you like to see her back? Bonny elephone Encounter - Bonny Decker - 06/21/2012 9:17 AM PSTLeft message requesting a call back to discuss return to work. Bonny elephone Encounter - Jose Juan Bo MD - 06/21/2012 8:22 AM PSTUntil at least Aug 08.Electronically sig cruz by Jose Juan Bo MD at 06/21/2012 8:23 AM PSTTelephone Encounter - Bonny Decker - 06/20/2012 3:57 PM PSTMarilou calls asking how long she has to remain on light duty with work. She saw Bob in office yesterday for her two month post op appointment. Please advi se. Bonny documented in this enc ounter Plan of Treatment Not on filedocumented as of this encounter Visit Diagnoses Not on filedocumented in this encounter"
--- OUTSIDE RECORDS SUMMARY | ~2020-01-18 | XMS | Encounter Summary ---
Demographics + + + | Address | [address] | | | [place] [address] | + + + | Home Phone | | + + + | Preferred Language | Unknown | + + + | Marital Status | | + + + | Worship Affiliation | 1041 | + + + [...] [place], [place] | | | | | [address] | | + + + + + | Mercedes Lemus | ECON | [place] | | | | | [address] | | + + + + + Care Team Providers + +------+ + | Care Type Caster Name | Role | Phone | + +------+ + | Hector Mccoy DO | PCP | | + +------+ + Reason for Visit +--------+--------+ + | Reason | Onset | Comments | | | Date | | +--------+--------+ + | Other | 05/22/ | return to work | | | 2011 | | +--------+--------+ + Encounter Details +--------+ + + + + | Date | Type | Department | Care Team | Description | +--------+ + + + + | 05/22/ | Telephone | [facility] | Jose Juan Bo | Other (return to | | 2011 | | NEUROSURGERY [address] | [address] | work ) | | | | [address] | [address] [place] | | | | | [place] | [address] | | | | | [address] | [phone] | | | | | [phone] | | | +--------+ + + + [...] Notes Telephone Encounter - Bonny Decker - 05/23/2012 11:27 AM PDTSpoke with Mary, she is oka y with the restrictions. I will fax the letter to her employer today. Bonny Decker elephone Shahbaz lewis - Jose Juan Bo MD - 05/23/2012 11:07 AM PDTWow, that's quick. 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 Don't say progress as tolerated. Let's keep it restrictive. Thank you. eleph one Encounter - Bonny Decker - 05/23/2012 9:58 AM PDTWants the note to say "can work no mo re than 4 hours daily, as tolerated by pain." Electronically signed by Bonny Decker at 05/23 9:58 AM PDTTelephone Encounter - Bonny Decker - 05/22/2012 1:05 PM Babs calls today and wants to know when she can return to work? 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 Please advise. Bonny Decker documented in this encounter Plan of Treatment Not on filedocumented as of this encounter Visit Diagnoses Not on filedocumented in this encounter
--- OUTSIDE RECORDS SUMMARY | ~2020-01-18 | XMS | Encounter Summary ---
Demographics + + + | Address | [address] | | | [place] [address] | + + + | Home Phone [...] [place], [place] | | | | | [address] | | + + + + + | Mercedes Lemus | ECON | [place] | | | | | [address] | | + + + + + Care Team Providers + +------+ + | Care Ash Pit Worker Name | Role | Phone | + +------+ + | Martell Hilario NP | PCP | | + +------+ + Reason for Visit + +--------+ + | Reason | Onset | Comments | | | Date | | + +--------+ + | Hyperglycemia | 04/17/ | | | | 2017 | | + +--------+ + Encounter Details +--------+ + + + + | Date | Type | Department | Care Team | Description | +--------+ + + + + | 04/17/ | Telephone | [facility] | Cecilio Ram | Hyperglycemia | | 2017 | | PHYSIATRY [address] | [address] | | | | | [address] | [address] [place] | | | | | [place] | [address] | | | | | [address] | | | | | | [phone] | | | +--------+ + + + [...] this encounter Miscellaneous Notes Telephone Encounter - Ting Rutherford - 04/17/2018 10:58 AM PDTPatient called to make sure t hat Dr. Ram was aware that after steroid injection yesterday she had elevated blood s ugar (over 400) that night. She states that it has now gone down and seems to be resolving, but just wanted Dr. Enriquez to be aware. documented in this encounter Plan of Treatment Not on filedocumented as of this encounter Visit Diagnoses Not on filedocumented in this encounter"
--- OUTSIDE RECORDS SUMMARY | ~2020-01-18 | XMS | Encounter Summary ---
Demographics + + + | Address | [address] | | | [place] [address] | + + + | Home Phone | | + + + | Preferred Language | Unknown | + + + | Marital Status | | + + + | Sabianist Affiliation | 1041 | + + + | Race | Unknown | + + + | Ethnic Group | Unknown | + + + Author + + + | Author | [facility] | | | and [place] | + + + | Organization | [facility] | | [...] [place], [place] | | | | | [address] | | + + + + + | Mercedes Lemus | ECON | [place] | | | | | [address] | | + + + + + Care Team Providers + +------+ + | Care Swimming Pool Maintenance Name | Role | Phone | + [...] | | | | [place] | [address] | | | | | | Right | Phone: | | | | | | | [phone] | | | | | | | Fax: | | | | | | | [phone] | | +--------+--------+ + + + + Reason for Visit + + + | Reason | Comments | + + + | Back Pain | | + + + Encounter Details +--------+---------+ + + + | Date | Type | Department | Care Team | Description | +--------+---------+ + + + | 04/11/ | Office | [facility] | Bogdakendallcz, | Lumbar radiculopathy | | 2017 | Visit | PHYSIATRY [address] | [address]ANIA [address] | (Primary Dx); | | | | [address] | [address] | Spinal stenosis of | | | | [place], [place] | [place] [address] | lumbar region with | | | | [address] | [phone] | radiculopathy; S/P | | | | [phone] | | lumbar fusion; | | | [...] of blood sugars if you are diabetic. FCI risk can lead to osteoporosis which is [...] of the procedure you must provide a assembly line driver to take you home. For all procedur es it is recommended that someone else drive you home. documented in this encounter Progress Notes Ana Greco PA-C - 04/11/2018 10:40 AM PDTFormatting of this note might be differe nt from the original. Ana Greco PA-C [address] [facility], [address] [place], [place] [id number] FAX: PHYSICAL MEDICINE AND REHABILITATION H&P CHIEF [...] has no apparent deficits with short or fci memory. 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 Unfortunately she cont inues to have significant [...]
--- OUTSIDE RECORDS SUMMARY | ~2020-01-18 | XMS | Encounter Summary ---
Demographics + + + | Address | [address] | | | [place] [address] | + + + | Home Phone | | + + + | Preferred Language | Unknown | + + + | Marital Status | | + + + | Bahai Affiliation | 1041 | + + + | Race | Unknown | + + + | Ethnic Group | Unknown | + + + Author + + + | Author | [facility] | | | and [place] | + + + | Organization | [facility] | | | [...] [place], [place] | | | | | [address] | | + + + + + | Mercedes Lemus | ECON | [place] | | | | | [address] | | + + + + + Care Team Providers + +------+ + | Care Security Shift Supervisor Name | Role | Phone | + +------+ + PCP | Unavailable | + +------+ + Encounter Details +--------+ + + + + | Date | Type | Department | Care Team | Description | +--------+ + + + + | 05/07/ | Hospital | [facility] | Jose Juan Bo | | | 2011 - | Encounter | MED CTR SURGICAL | MD [place] [address] | | | | | [address] | [address] [place], [place] | | | 05/10/ | | [place] [address] | [address] | | | 2011 | | [phone] | [phone] | | | | | | | [...] documented as of this encounter Discharge Summaries Pako Norman PA-C - 08/10/2012 2:35 PM [place], [place] [address] Patient Name: TREE COLLADO Provider: Jose Juan Bo MD Unit #: [id number] Locati on: 3ES : 1940 ADMISSION DATE: 05/07/2012 DISCHARGE DATE: 05/10/2012 ADMITTING DIAGNOSIS: 1. Scoliosis. 2. Lumbar instability. 3. Lumbar spondylolisthesis. DISCHARGE DIAGNOSIS: 1. SCOLIOSIS. 2. LUMBAR INSTABILITY. 3. LUMBAR SPONDYLOLISTHESIS 4. S/P L4-5 LAIF and L5-S1 TLIF PROCEDURES: L4-5 Lateral anterior interbody fusion and L5-S1 TLIF with bilateral pedicle sc rew fixation CONSULTS: Dr. Castro, Rehab Medicine. BRIEF HISTORY:MRs. Collado is a 72 year old female with a long standing history of severe back pain. She has attempted conservative therapy and failed this. Therefore after a disc ussion of the risks, alternatives, and benefits of surgical intervention she has elected to proceed with surgical treatment. HOSPITAL COURSE: Mrs. Collado was admitted and underwnet the surgical procedure the same day. SHe tolerated the procedure well and postoperatively was transferred to the [facility] where she remained hemodynamically stable and afebrile during the course of her stay. Neurologically she remained excellenet with good strength and improved sensation in both l ower extremeties. Pain control was eventually achieved with oral medications. She worked well with physical therapy and was able to ambulate progressively. Therefore on postoperat danial day she was deemed to be stable in good condition and ready for discharge to rehab [facility]. DISCHARGE DISPOSITION: To Rehab DISCHARGE CONDITION: Good DISCHARGE DIET: She is instructed to resume her preoperative diet. DISCHARGE INSTRUCTIONS: She is to remain on lumbrosacral precautions. This includes no hea vy lifting anything greater than 5 pounds for the first month. No bending or twisting. No sitting for greater than 45 minutes at a time. She is to be up and out of bed most of the day. She is to wear her LSO brace at all times when she is up and out of bed. She is to remove it when she is in bed. She is encouraged to wear this brace over a shirt. She is t o keep her incisions clean and dry. She may shower but it to avoid baths, hot tubs, swimmi ng pools, or any immersion of the wounds in water for 1 month. Should her dressings become wet for any reason she is instructed to change them. She may removed the current dressing after approximately 4 days. DISCHARGE MEDICATIONS: She is to resume her preoperatived medications with the following e xceptions: Aspirin she is to hold for one week. Plavix she is to hold for two weeks. Enb rel she is to hold for one month. She is to avoid all nonsteroidal anti-inflammatory medic ations until further notice. Additionally she is provided with prescriptions for tranxene and percocet. FOLLOWUP: With Dr. Bo's office as previously scheduled in approximately two weeks. DICTATED BY: HUMBERTO Steele Dictated For: Jose Juan Bo MD Neurosurgery JOB #: [id number] EXT JOB #:[id number] documented in t his encounter Miscellaneous Notes Op Note - Jose Juan Bo MD - 05/07/2012 6:40 PM [place] [address] Patient Name: TREE COLLADO Provider: Jose Juan Bo MD Unit #: [id number] Locati on: 3ES : 1940 DATE: 05/07/2012 PROCEDURE TITLE 1. L4-5 lateral anterior arthrodesis with interbody device. 2. L5-S1 lateral anterior a rthrodesis with interbody device. 3. L4-5 and L5-S1 bilateral posterior segmental pedicle screw arthrodesis. 4. L4-L5 and L5-S1 posterior onlay arthrodesis. 5. Intraoperative neuromonitoring. 6. Microsurgical technique. 7. Bone marrow aspirate. SURGEON: Jose Juan Bo MD CHICKEN VACCINATOR: MARIJA Lowe ANESTHESIA: General endotracheal by Bakari Ryan MD PREOPERATIVE DIAGNOSES 1. Scoliosis. 2. Lumbar spondylolisthesis L4-L5, L5-S1. 3. Lumbar instability L4-5, L5-S1. 4. Neural foraminal stenosis L4-5, L5-S1. 5. Degenerative disk disease. 6. Diabetes. 7. Obesity. 8. Hypertension. 9. Hyperlipidemia. POSTOPERATIVE DIAGNOSES: 1. SCOLIOSIS. 2. LUMBAR SPONDYLOLISTHESIS L4-L5, L5-S1. 3. LUMBAR INSTABILITY L4-5, L5-S1. 4. NEURAL FORAMINAL STENOSIS L4-5, L5-S1. 5. DEGENERATIVE DISK DISEASE. 6. DIABETES. 7. OBESITY. 8. HYPERTENSION. 9. HYPERLIPIDEMIA. INTRAOPERATIVE FINDINGS 1. Scoliosis. 2. Lumbar spondylolisthesis L4-L5, L5-S1. 3. Lumbar instability L4-5, L5-S1. 4. Neural foraminal stenosis L4-5, L5-S1. 5. Degenerative disk disease. 6. Diabetes. 7. Obesity. 8. Hypertension. 9. Hyperlipidemia. SPECIMENS: None. ESTIMATED BLOOD LOSS: 55 mL. COMPLICATIONS: None. PROCEDURE TIME: 3-1/2 hours. INDICATIONS: Ms. Collado is a 71-year-old female with a significant history of back and l eft lower extremity pain that has been refractory to conservative management and progressiv e. After discussion of the risks, alternatives, and benefits of surgical intervention in cl in, she has elected to provide informed consent for the following procedure. PROCEDURE DESCRIPTION: Ms. Collado was brought in the operative suite in supine position on a stretcher and placed under general anesthesia without difficulty. She received 2 g Anc ef prophylactic antibiosis, also 5 mg Decadron and 20 mg of Pepcid. She then had neuromonit oring placed and a Reagan catheter placed in a sterile technique. She was then placed in the left lateral decubitus position on the OSI axis imaging flat top table and all the pressur e points carefully padded and cushioned. This included maintaining neutral cervical alignme nt, axillary roll placement, and flexing her hips and knees and placing a pillow between he r legs. She was then flexed to approximately 25 degrees. The right lateral flank was then m arked with assistance of AP and lateral fluoroscopy for access into the L4-5 and L5-S1 inte rspaces. The skin was prepped and draped in usual sterile fashion. A #10 blade was employed to perform a 3 cm transverse incision. Immaculate hemostasis was obtained with monopolar cautery and then a blunt dissection ensued down to the external obl ique muscle fascia. The muscle fascia and the muscle was then split in a muscle-splitting, muscle-sparing technique, which allowed access to the retroperitoneum. The retroperitoneum was then dissected in a blunt finger- sweeping fashion and this allowed access to the later al psoas. The [place] Cross-Fusion retractor system was employed to perform a transpsoas ap proach employing intraoperative neuromonitoring. It should be noted that there were no sign ificant neural elements in the vicinity of the dissection. Once the retractor was positione d, then good visualization of the lateral annulus at L4-5 was obtained. The diskectomy then ensued. The diskectomy was to prepare the endplates for arthrodesis as well as provide for direct and indirect decompression. The cartilaginous endplates were resected and the bony endplates were preserved. A combination of broaches, rongeurs and curettes were employed to perform the diskectomy. Once performed, then biomechanical spacer trials were placed. Ultim ately, a 22 mm x 50 mm x 13 mm, 60 degree lordotic biomechanical spacer was placed and felt to be appropriate. The Jamshidi style needle was employed to perform a bone marrow aspirat e of the body of L4, and then this was combined with Mastergraft and Eric and extra, ext ra small bone morphogenic protein. This was then placed into position under direct visualiz ation as well as assistance of AP and lateral fluoroscopy. Once positioned, then copious ir rigation was applied, immaculate hemostasis obtained. The retractor was collapsed and then withdrawn under direct visualization to ensure immaculate hemostasis. Attention was then turned to the L5-S1 level, where, in a similar fashion through a separa te fascial incision, a muscle-splitting, muscle-sparing technique was employed to access th e retroperitoneum and then a transpsoas approach was performed in a similar fashion. Once again diskectomy was performed and at this level an 18 mm x 45 mm x 11 mm biomechanical 60 degree lordotic biomechanical spacer was placed. This again was packed with extra, extra s mall bone morphogenic protein, Mastergraft, and [place] with bone marrow aspirate. Once aga in, copious irrigation was applied, immaculate hemostasis obtained. The retractor was colla psed and withdrawn under direct visualization to ensure immaculate hemostasis. The external oblique muscle fascia was closed and reapproximated with interrupted inverted 0 Vicryl sut ure, Nguyen fascia closed with interrupted inverted 0 Vicryl sutures, deep dermis was close d with interrupted inverted 2-0 Vicryl sutures, and the dermis was closed with interrupted inverted 3-0 Vicryl sutures, and over the surface of the skin Dermabond was applied. The pat ient was turned to the neutral position, returned to the supine position, and then returned to regular stretcher while the bed was converted to a Kurt frame. Once the bed was converted, the patient was placed in the prone position with a ProneView pillow and all her pressure points were carefully padded and cushioned. The lumbar skin was prepped and draped in usual sterile fashion. With assistance of AP and lateral fluoroscopy and a spinal needle two 3 cm longitudinal incisions were marked approximately 3.5 cm later al to midline. This was to allow access to the pedicles of L4, L5, and S1. Once the incisio ns were marked, then the skin was infused with approximately 10 mL of 0.5% Marcaine with ep inephrine on each side and then a #10 blade was employed to perform the longitudinal incisi ons. Immaculate hemostasis was obtained with monopolar cautery and then the I-PAS needles w ere employed to cannulate the pedicles. This was performed without difficulty with AP and l ateral fluoroscopy as well as with intraoperative neuromonitoring. The right-sided L4 pedic le cannulation was redirected due to an unacceptably low EMG stimulation. However, once re positioned good signal was obtained. Once cannulation was performed, then bone marrow aspira te was obtained and then the guidewires were placed, then the needles were withdrawn. Attention was then turned to the posterior onlay arthrodesis was performed at L4-5 as well as L5-S1 on the left side at the facet joint and through the METRx sequential tubular dila tion system was performed a transmuscular muscle-splitting, muscle-sparing approach to the L4-5 and L5-S1 levels. A microscope was brought in the field and then the facet was denuded . The pars and spinous process as well as the root of the transverse process were visualize d and then roughed up and then a combination of Eric and Mastergraft with bone marrow as pirate were placed in onlay fashion. The retractor was withdrawn and then once this was per formed at both L4-5 and L5-S1, attention was turned to placing pedicle screws. These were t he Orthofix minimally invasive screw set. At the L4 and S1 levels they were 7.5 x 40 mm sc rews, and, at the L5 level, 7.5 x 45 mm screws. Once these screws were positioned, then the guidewires were removed. Copious irrigation was applied, immaculate hemostasis obtained. Th e two 65 mm rods were passed in a submuscular fashion into the tulips and then locked into position with top nuts and then torqued to ball holder specification. Towers were then bro allyssa off. Copious irrigation was applied, immaculate hemostasis obtained. The external muscl e fascia was then closed and reapproximated with interrupted inverted 0 Vicryl sutures. Sca rpa fascia was closed with interrupted inverted 0 Vicryl sutures. The deep dermis was close d with interrupted inverted 2-0 Vicryl sutures, and the dermis was closed with interrupted inverted 3-0 Vicryl sutures, and then over the surface of the skin Dermabond was applied. The patient was then returned to the supine position, the Reagan catheter and the neuromoni toring electrodes were removed and she was awoken from general anesthesia without apparent complications, having tolerated the procedure well. It should be noted that timeout was per formed prior to initiation of the procedure, and all counts were reported as correct at the end of the procedure. DICTATED BY: Jose Juan Bo MD Neurosurgery JOB #: [id number] EXT JOB #:[id number] cc: MARIJA Bearden <<Signature on File>> Jose Juan Bo MD05/16/12 1733 < documented in this encounter Plan of Treatment Not on filedocumented as of this encounter Procedures + +--------+ + + + | Procedure Name | Priori | Date/Time | Associated Diagnosis | Comments | | | ty | | | | + +--------+ + + + | URINALYSIS, REFLEX | Routin | 05/08/2012 | | Results for this | | MICROSCOPIC AND/OR | e | 6:46 PM | | procedure are in the | | CULTURE | | PDT | | results section. | + +--------+ + + + | XR LUMBAR SPINE 2 OR | Routin | 05/08/2012 | | Results for this | | 3 VW | e | 11:18 AM | | procedure are in the | | | | PDT | | results section. | + +--------+ + + + documented in this encounter Results Urinalysis, Reflex Microscopic and/or Culture (05/08/2012 6:46 PM PDT) + + + + + + | Component | Value | Ref Range | Performed | Pathologist | | | | | At | Signature | + + + + + + | COLLECTION | . | | [facility] | | | [facility] | | | [facility] | | | | | | [facility] | | | | | | [facility] - | | | | | | LABORATORY | | + + + + + + | Color, | YELLOW | | [facility] | | | Urine | | | [facility] | | | | | | [facility] | | | | | | C[facility] - | | | | | | LABORATORY | | + + + + + + | Clarity | CLEAR | | [facility] | | | | | | [facility] | | | | | | [facility] | | | | | | [facility] - | | | | | | LABORATORY | | + + + + + + | Glucose, | NEGATIVE | NEGATIVE mg/dL | [facility] | | | Urine | | | [facility] | | | | | | MEDICAL | | | | | | CENTER - | | | | | | LABORATORY | | + + + + + + | Bilirubin, | NEGATIVE | NEGATIVE | [facility] | | | Urine | | | [facility] | | | | | | MEDICAL | | | | | | CENTER - | | | | | | LABORATORY | | + + + + + + | Ketones, | NEGATIVE | NEGATIVE | [facility] | | | Urine | | | [facility] | | | | | | MEDICAL | | | | | | CENTER - | | | | | | LABORATORY | | + + + + + + | Specific | 1.020 | 1.001 - 1.030 | [facility] | | | [place], | | | [facility] | | | Urine | | | MEDICAL | | | | | | CENTER - | | | | | | LABORATORY | | + + + + + + | Blood, | NEGATIVE | NEGATIVE | [facility] | | | Urine | | | [facility] | | | | | | MEDICAL | | | | | | CENTER - | | | | | | LABORATORY | | + + + + + + | pH, Urine | 5.5 | 5.0 - 8.0 | [facility] | | | | | | [facility] | | | | | | MEDICAL | | | | | | CENTER - | | | | | | LABORATORY | | + + + + + + | Protein, | NEGATIVE | NEGATIVE mg/dL | [facility] | | | Urine | | | [facility] | | | | | | MEDICAL | | | | | | CENTER - | | | | | | LABORATORY | | + + + + + + | Urobilinoge | NORMAL | NORMAL EU/dL | [facility] | | | n, Urine | | | [facility] | | | | | | MEDICAL | | | | | | CENTER - | | | | | | LABORATORY | | + + + + + + | Nitrite, | NEGATIVE | NEGATIVE | [facility] | | | Urine | | | [facility] | | | | | | MEDICAL | | | | | | CENTER - | | | | | | LABORATORY | | + + + + + + | Leukocyte | NEGATIVE | NEGATIVE | [facility] | | | Esterase, | | | [facility] | | | Urine | | | MEDICAL | | | | | | CENTER - | | | | | | LABORATORY | | + + + + + + | MICROSCOPIC | NO | | [facility] | | | ? | | | [facility] | | [...] + | [facility] | [address] | [place], [place] | [phone] | | [facility] | | [address] | | | - LABORATORY | | | | + + + + + | [facility] | [address] | [place], [place] | | | [facility] | | [address], [facility] | | | - LABORATORY | | | | + + + + + XR Lumbar Spine 2 or 3 Vw (05/08/2012 11:18 AM PDT) + + | Specimen | + + | | + + + + + | Narrative | Performed At | + + + | [facility] | [facility] | | Department [address] [facility] [address] [place] | [facility] | | [ rep [address]] [ rep [facility] | | st zip] Signed | - IMAGING | | | | | Patient Name: TREE COLLADO Physician: | | | [email or web address] : 1940 Age: 71 Sex: F Unit #: [id number] | | | Exam Date: 05/08/12 Location: [address] [place] [address] | | | Report #: [id number] Page: | | | %(RAD)RES..mtdd.print.filter("pg") of %(RAD) | | | RES..mtdd.print.filter("tpg") | | | | | | Accession Number: [id number] | | | LUMBAR SPINE LIMITED, 05/08/2012 CLINICAL HISTORY: | | | POSTOP SURGERY. COMPARISON: Preoperative radiograph | | | 01/26/2012 from [facility]. FINDINGS: | | | Frontal and lateral views of the lumbar spine. Interval fusion | | | with posterior transpedicular screws and vertical rods at L3, L4, | | | L5, and S1. Interbody grafts at the intervening disk spaces. No | | | evidence for immediate complication. Less scoliotic curvature. No | | | interval compression deformities. Operative changes in both hips, | | | incompletely evaluated. IMPRESSION: 1. | | | POSTOPERATIVE FUSION OF L3 THROUGH S1 WITHOUT EVIDENCE FOR IMMEDIATE | | | COMPLICATION. Dictated Date/Time: 05/08/2012 11:18 | | | Transcribed Date/Time: 05/08/2012 11:47 [employer] Administrator: | | | <<Signature on File>> | | | Roger | | | Diana Leonard MD05/08/12 6751 <Electronically signed by Roger Ortiz | | | Aisha LOPEZ> Roger Leonard MD 05/08/12 1118 | | | [employer] Administrator: Lubna Rasheed05/08/12 1147 | | | Jose Juan Bo MD | | + + + + + + + + | Performing | Address | City/State/Zipcode | Phone Number | | Organization | | | | + + + + + | [facility] | [address] | [place] | [phone] | | [facility] | | [address] | | | - IMAGING | | | | + + + + + documented in this encounter Visit Diagnoses Not on filedocumented in this encounter
--- OUTSIDE RECORDS SUMMARY | ~2020-01-18 | XMS | Clinical Summary ---
Demographics + + + | Address | [address] | | | [place] [address] | + + + | Home Phone | | + + + | Preferred Language | Unknown | + + + | Marital Status | | + + + | Moravian Affiliation | 1041 | + + + | Race | Unknown | + + + | Ethnic Group | Unknown | + + + Author + + + | Author | [facility] | | | and [place] | + + + | Organization | [facility] | | | and [...] [place], [place] | | | | | [address] | | + + + + + | Mercedes Lemus | ECON | [place] | | | | | [address] | | + + + + + Care Team Providers + +------+ + | Care Client Services Vice President Name | Role | Phone | + [...] Health Maintenance | Due Date | Last | Comments | | | | Done | | + + + + + [...] | 7 | | | | of 1 - PPSV23) | | | | + + + + + | Adult Annual | | | | | Wellness Visit | 5 | | | + + + + + | Vaccine: Influenza | Completed | 06/05/20 | | | | | 19, | | | | | 06/13/20 | | | | | 18, | | | | | 03/15/20 | | | | | 17, | | | | | Addition | | | | | al | | | | | history | | | | | exists [...] +--------+ +---------+--------+ | MEDICARE | MEDICA | [id number] | | [phone] | | Medica | | | RE | | 007-Pr | 5 | | re | | | PART A | | esent | | | | | | AND B | | | | | | + +--------+ +--------+ +---------+--------+ | MEDICARE | MEDICA | [id number] | | [phone] | | Medica | [...] [place] | | | 1 (Home) | [phone] | + +--------+ +--------+ + + | Mary Collado | Person | Self [birth year] | [address] | | | al/Fam | | 1940 | [phone] | [place], [place] | | | [place] | | | 1 (Home) | [phone] | + +--------+ +--------+ + + Advance Directives + + + + + | Type | Date Recorded | Patient | Explanation | | | | 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
--- OUTSIDE RECORDS SUMMARY | ~2020-01-18 | XMS | Encounter Summary ---
Demographics + + + | Address | [address] | | | [place] [address] | + + + | Home Phone [...] [place], [place] | | | | | [address] | | + + + + + | Mercedes Lemus | ECON | [place] | | | | | [address] | | + + + + + Care Team Providers + +------+ + | Care Architectural Representative Name | Role | Phone | + +------+ + PCP | Unavailable | + +------+ + Encounter Details +--------+ + + + + | Date | Type | Department | Care Team | Description | +--------+ + + + + | 10/07/ | Hospital | [facility] | Vance Joel | Coronary | | 2010 | Encounter | [facility] | [address] | atherosclerosis of | | | | CLINICAL DECISION | Marguerite Lance | lac vieux coronary | | | | [address] | [place] [address] | artery | | | | [place], [place] | [phone] | | | | | [address] | | | | | | [phone] | | | +--------+ + + + [...] | + +--------+ + + + | CV CARDIAC PROCEDURE | Routin | 10/07/2010 | | Results for this | | | e | 1:15 PM | | procedure are in the | | | | PDT | | results section. | + +--------+ + + + documented in this encounter Results CV CARDIAC PROCEDURE (10/07/2010 1:15 PM PDT) + + | Specimen | + + | | + + + + + | Narrative | Performed At | + + + | PREOPERATIVE DIAGNOSES 1. Chest pain. 2. Coronary artery disease. | | | POSTOPERATIVE DIAGNOSES 1. Chest pain. 2. Coronary artery | | | disease. PROCEDURES 1. Left heart catheterization. 2. Left | | | ventriculogram. 3. Coronary angiography. INDICATIONS This is a | | | 70-year-old white female with left shoulder discomfort thought to be | | | arthritic in nature. Orthopedic procedure anticipated. She has a | | | number of risk factors for coronary disease. Undergoes noninvasive | | | evaluation. Found to have abnormal stress test. With this in mind | | | coronary angiography is recommended. CONSENT Risks and benefits | | | explained. Informed consent was obtained. PROCEDURES PERFORMED | | | Left heart catheterization via the right femoral artery, a Kyle | | | technique. At the end of the procedure, hemostasis was obtained with a | | | Mynx closure device. For complete details, see the procedural logs. | | | FINDINGS 1. The coronary angiography reveals a co-dominant | | | system. The left main is free of focal stenosis. Trifurcates into an | | | LAD, ramus, and left circumflex system. The LAD has a 40% proximal | | | lesion slightly after a small first diagonal vessel. The remainder of | | | the LAD is free of significant disease. The LAD is perhaps 2.75 mm | | | at its origin. The ramus vessel is a moderate-sized vessel, perhaps 2 | | | mm at its origin, and supplies the lateral wall. The left circumflex | | | is a 2.75 mm vessel at its origin, giving off a principal marginal | | | vessel that is perhaps 2.5 mm at its origin; and then the left | | | posterolateral branches come from the circumflex. The left circumflex | | | and its branches are free of significant disease. The right coronary | | | artery is a codominant vessel, perhaps 2.75 mm at its origin, giving | | | off a clonus branch, RV branch, and the true posterior descending | | | artery. The system is free of focal stenosis. 2. Left heart | | | catheterization reveals a systemic blood pressure of 143/80 with left | | | ventricular end-diastolic pressure 10 mmHg. There is no significant | | | transaortic gradient. 3. Left ventriculogram demonstrates normal | | | contractility. Ejection fraction is 60%. No obvious wall motion | | | abnormalities. The mitral valve is competent with no evidence of | | | mitral regurgitation. The aortic valve appears normal. IMPRESSION | | | Low-grade single-vessel coronary artery disease with normal left | | | ventricular systolic and diastolic function. RECOMMENDATIONS | | | Medical therapy. DESCRIPTION OF PROCEDURE After the patient | | | arrived in the cardiac catheterization lab, prepped and draped in a | | | sterile manner, the right groin was anesthetized with 1% lidocaine, | | | plain. Using a large-bore needle, a single-wall puncture was made, | | | with entry into the right femoral artery. Through this needle, a | | | guidewire was inserted into the right femoral artery, the needle | | | removed, and then a hemostatic sheath with its dilator was advanced | | | over the guidewire into the right femoral artery. The guidewire and | | | the dilator were removed; the hemostatic sheath was then flushed with | | | normal saline. After this, the pigtail catheter was inserted with | | | its guidewire through the hemostatic sheath and passed into the left | | | ventricular cavity. This guidewire was then removed and the pigtail | | | catheter was then connected to the injection system. Left ventricular | | | pressures were obtained. After this, the left ventriculogram was | | | obtained in the standard RUIZ view. After this, the drawback pressure | | | was obtained, pulling the pigtail catheter back from the left | | | ventricle across the aortic valve into the aortic root. After this, | | | the injection system was disconnected from the pigtail catheter, a | | | guidewire was inserted into the catheter and the catheter removed | | | leaving the guidewire in place. After this, the left coronary | | | catheter was advanced over the guidewire to the aortic root. The | | | guidewire was removed and then the left coronary catheter connected | | | to the injection system. The left main ostium was then engaged | | | with the catheter, and multiple injections of the left coronary | | | system were obtained in the standard views (RUIZ caudal, RUIZ cranial, | | | CYMRAES cranial and CYMRAES caudal). After this, the injection system was | | | disengaged from the catheter, a guidewire inserted up the catheter, | | | and the left coronary catheter removed, leaving the guidewire in | | | place. The right coronary catheter was then advanced over the | | | guidewire up to the aortic root, the guidewire removed and the right | | | coronary catheter attached to the injection system. The catheter was | | | then engaged into the right coronary ostium and standard views | | | obtained (CYMRAES cranial, RUIZ). After this, the injection system was | | | disconnected from the catheter, the guidewire was advanced up the | | | catheter, and the catheter and guidewire removed intact. The injection | | | system was then attached to the hemostatic sheath and an injection | | | was made of the right iliac artery. For complete details, see | | | procedural logs. ESTIMATED BLOOD LOSS Less than 50 mL. | | | P A HANG/terry/[id number]/ | | | Read by VANCE JOEL DO 10/11/2010 01:08 P Electronically | | | signed by Vance Joel DO on 06/04/2013 2:48 PM | | + + + + + | Procedure Note | + + | Scottie, Rad Conversion - 03/16/2019 5:20 PM PDT PREOPERATIVE DIAGNOSES | | 1. Chest pain. | | 2. Coronary artery disease. | | | | POSTOPERATIVE DIAGNOSES | | 1. Chest pain. | | 2. Coronary artery disease. | | | | PROCEDURES | | 1. Left heart catheterization. | | 2. Left ventriculogram. | | 3. Coronary angiography. | | | | INDICATIONS | | This is a 70-year-old white female with left shoulder discomfort thought | | to be arthritic in nature. Orthopedic procedure anticipated. She has a | | number of risk factors for coronary disease. Undergoes noninvasive | | evaluation. Found to have abnormal stress test. With this in mind | | coronary angiography is recommended. | | | | CONSENT | | Risks and benefits explained. Informed consent was obtained. | | | | PROCEDURES PERFORMED | | Left heart catheterization via the right femoral artery, a Kyle | | technique. At the end of the procedure, hemostasis was obtained with a | | Mynx closure device. For complete details, see the procedural logs. | | | | FINDINGS | | 1. The coronary angiography reveals a co-dominant system. The left main | | is free of focal stenosis. Trifurcates into an LAD, ramus, and left | | circumflex system. The LAD has a 40% proximal lesion slightly after a | | small first diagonal vessel. The remainder of the LAD is free of | | significant disease. The LAD is perhaps 2.75 mm at its origin. The | | ramus vessel is a moderate-sized vessel, perhaps 2 mm at its origin, | | and supplies the lateral wall. The left circumflex is a 2.75 mm | | vessel at its origin, giving off a principal marginal vessel that is | | perhaps 2.5 mm at its origin; and then the left posterolateral | | branches come from the circumflex. The left circumflex and its | | branches are free of significant disease. The right coronary artery | | is a codominant vessel, perhaps 2.75 mm at its origin, giving off a | | clonus branch, RV branch, and the true posterior descending artery. | | The system is free of focal stenosis. | | 2. Left heart catheterization reveals a systemic blood pressure of | | 143/80 with left ventricular end-diastolic pressure 10 mmHg. There is | | no significant transaortic gradient. | | 3. Left ventriculogram demonstrates normal contractility. Ejection | | fraction is 60%. No obvious wall motion abnormalities. The mitral | | valve is competent with no evidence of mitral regurgitation. The | | aortic valve appears normal. | | | | IMPRESSION | | Low-grade single-vessel coronary artery disease with normal left | | ventricular systolic and diastolic function. | | | | RECOMMENDATIONS | | Medical therapy. | | | | DESCRIPTION OF PROCEDURE | | After the patient arrived in the cardiac catheterization lab, prepped | | and draped in a sterile manner, the right groin was anesthetized with 1% | | lidocaine, plain. | | | | Using a large-bore needle, a single-wall puncture was made, with entry | | into the right femoral artery. Through this needle, a guidewire was | | inserted into the right femoral artery, the needle removed, and then a | | hemostatic sheath with its dilator was advanced over the guidewire into | | the right femoral artery. The guidewire and the dilator were removed; | | the hemostatic sheath was then flushed with normal saline. After this, | | the pigtail catheter was inserted with its guidewire through the | | hemostatic sheath and passed into the left ventricular cavity. This | | guidewire was then removed and the pigtail catheter was then connected | | to the injection system. Left ventricular pressures were obtained. After | | this, the left ventriculogram was obtained in the standard RUIZ view. | | After this, the drawback pressure was obtained, pulling the pigtail | | catheter back from the left ventricle across the aortic valve into the | | aortic root. After this, the injection system was disconnected from the | | pigtail catheter, a guidewire was inserted into the catheter and the | | catheter removed leaving the guidewire in place. After this, the left | | coronary catheter was advanced over the guidewire to the aortic root. | | The guidewire was removed and then the left coronary catheter connected | | to the injection system. | | | | The left main ostium was then engaged with the catheter, and multiple | | injections of the left coronary system were obtained in the standard | | views (RUIZ caudal, RUIZ cranial, CYMRAES cranial and CYMRAES caudal). After this, | | the injection system was disengaged from the catheter, a guidewire | | inserted up the catheter, and the left coronary catheter removed, | | leaving the guidewire in place. The right coronary catheter was then | | advanced over the guidewire up to the aortic root, the guidewire removed | | and the right coronary catheter attached to the injection system. The | | catheter was then engaged into the right coronary ostium and standard | | views obtained (CYMRAES cranial, RUIZ). After this, the injection system was | | disconnected from the catheter, the guidewire was advanced up the | | catheter, and the catheter and guidewire removed intact. The injection | | system was then attached to the hemostatic sheath and an injection was | | made of the right iliac artery. For complete details, see procedural | | logs. | | | | ESTIMATED BLOOD LOSS | | Less than 50 mL. 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
--- OUTSIDE RECORDS SUMMARY | ~2020-01-18 | XMS | Encounter Summary ---
Demographics + + + | Address | [address] | | | [place] [address] | + + + | Home Phone [...] [place], [place] | | | | | [address] | | + + + + + | Mercedes Lemus | ECON | [place] | | | | | [address] | | + + + + + Care Team Providers + +------+ + | Care Sheeter Operator Name | Role | Phone | [...] + + | 03/14/ | Office | [facility] | Cecilio Ram | Lumbar radiculopathy | | 2017 | Visit | PHYSIATRY [address] | MD [address] | (Primary Dx); | | | | [address] | [address] [facility] [place] | Status post lumbar | | | | [place] | [id number] | spinal fusion; | | | | [address] | | Spinal stenosis of | | | | [phone] | | lumbar region with | | [...] of the procedure you must provide a truck driver rubbish collector to take you home. For all procedur es it is recommended that someone else drive you home. documented in this encounter Progress Notes Cecilio Ram MD - 03/14/2017 10:50 AM PDT Cecilio Ram MD [address] [facility] [place], [place] [address] FAX: PHYSICAL MEDICINE AND REHABILITATION H&P CHIEF [...] has no apparent deficits with short or intermediate memory. She has appropriate fund of knowledge [...] | Transforaminal Epidural Steroid InjectionDiagnosis: Lumbar | [facility] | | radiculopathyICD-10 Code M54.16 Mary Collado presents to the [facility] | | fluoroscopy suite for [...] + + | Performing | Address | City/State/[facility] | Phone Number | | Organization | | | | + + + + + | [facility] | [address] | [place] | [phone] | | [facility] | | [address] | | | - IMAGING | | [...]
--- OUTSIDE RECORDS SUMMARY | ~2020-01-18 | XMS | Encounter Summary ---
Demographics + + + | Address | [address] | | | [place] [address] | + + + | Home Phone | | + + + | Preferred Language | Unknown | + + + | Marital Status | | + + + | Scientologist Affiliation | 1041 | + + + | Race | Unknown | + + + | Ethnic Group | Unknown | + + + Author + + + | Author | [facility] | | | and [place] | + + + | Organization | [facility] | | | [...] [place], [place] | | | | | [address] | | + + + + + | Mercedes Lemus | ECON | [place] | | | | | [address] | | + + + + + Care Team Providers + +------+ + | Care Mounted Police Name | Role | Phone | + +------+ + | Hector Harris DO | PCP | | + +------+ + Encounter Details +--------+ + + + + | Date | Type | Department | Care Team | Description | +--------+ + + + + | 12/08/ | Hospital | [facility] | Zac, | Chest pain | | 2015 - | Encounter | [facility] | MD [address] | | | | | CLINICAL DECISION | [address] | | | 12/09/ | | [address] | [place] [address] | | | 2015 | | [place], [place] | [phone] | | | | | [address] | | | | | | [phone] | | | +--------+ + + + [...] Service: Hospitalist Author Type: Physician Filed: 12/14/14 1028 Date of Service: 12/09/141633 Status: Signed Hardener Helper: Scott Woods MD (Physician) Related Notes: Original Note by Scott Woods MD (Physician) filed at 12/09/14 16 42 [facility] Service: Hospitalist Physician Discharge Summary Pt: Tree Collado AGE/SEX: 74 y.o. female ROOM: [facility]/1121-1 PCP: SUSIE HARRIS : 1940 Admit date: [...] of cardiac enzymes were negative for acute [place]. Nuclear m edicine stress test was ordered [...] aortic stenosis and I would suggest to [place] to repeat echocardiogram in about [...] hours. No results for input(s): PHART, PO2ART, QEA3OLJ, C2GQLKRF, BEART in the last 168 hours. No [...] 12/09/141647 Date of Service: 12/09/141644 Status: Signed Hardener Helper: Abby Weeks RN (Registered Nurse) Pt stable [...] Date of Service: 12/09/14 1610 Status: Signed Hardener Helper: Abby Weeks RN (Registered Nurse) Dr Chuck perla. onver wong Transaction, Provider Unknown - 12/09/2014 3:34 PM PDT Case Management by Kristi Perez RN at 12/09/14 1534 Author: Kristi Perez RN Service: (none) Author Type: Registered Nurse Filed: 12/09/14 1534 Date of Service: 12/09/14 1534 Status: Signed Hardener Helper: Kristi Perez RN (Registered Nurse) Discharge planning: [...] Date of Service: 12/09/14 0423 Status: Addendum Hardener Helper: Abby Weeks RN (Registered Nurse) Related Notes: Original Note by Abby Weeks RN (Registered Nurse) filed at 12/09/14 14 55 Removed nitro patch now. onver wong Transaction, Provider Unknown - 12/09/2014 4:16 AM PDT Progress Notes by Carlita Aj RPH at 12/09/14415 Author: Carlita Aj RPH Service: (none) Author Type: Pharmacist Filed: 12/09/14415 Date of Service: 12/09/14415 Status: Signed Hardener Helper: Carlita Aj RPH (Pharmacist) Clinical Pharmacy Note: Renal Monitoring Tree Collado 74 y.o. female Height: 162.6 cm Weight: 91.2 kg Serum Creatinine: 0.64 mg/dL (from [facility]) Estimated creatinine clearance - Cockcroft-Gault CrCl: [...] 0103 Date of Service: 12/09/1440 Status: Signed Hardener Helper: Tod Frank MD (Physician) [facility] Service: Hospitalist Admission History & Physical Date of Admission: 12/08/2014 Requesting Physician: Dr Guillen, Emergency Department Reason for Admission: Chest pain / Transfer from [facility] History Obtained From: patient CHIEF COMPLAINT: Chest [...] Component Value Units Date/Time D -Dimer, Quantitative [[id number]] Collected: 12/08/145 Specimen Information: Blood Updated: 12/09/14 [...] Notes by Parag Guillen MD at 12/08/14 8589 Author: Parag Guillen MD Service: (none) Author Type: Physician Filed: 12/09/14 0454 Date of Service: 12/08/142307 Status: Signed Hardener Helper: Parag Guillen MD (Physician) [facility] Department of Emergency Medicine History of Present Illness Patient Identification Tree Collado is a 74 y.o. female. Patient information was obtained from patient. History/Exam limitations: none. Patient presented to the Emergency Department [facility] Room:1121/1121-1 Chief Complaint Chief Complaint Patient presents with Chest Pain transfer from [facility] The patient presents to ED with [...] arm. She states she prese nted to [facility] for evaluation and she was transferred to [facility] ED for further evaluat ion. Patient reports pain with inspiration, SOB, nausea, vomiting, and headache. Patient den ies fever, vision changes, cough, diarrhea, leg pain/swelling, or skin rash. Patient reports she was given NTG at [facility] with some relief. Patient reports she [...] alexis with its contents. Parag Guillen MD [facility] Parag Guillen MD 12/09/14 0454 onversio n Transaction, Provider Unknown - 12/08/2014 10:29 PM PDTFormatting of this note might be di fferent from the original. ED Notes by Cyndie Sousa at 12/08/142228 Author: Cyndie Sousa Service: (none) Author Type: Production Control Coordinator Filed: 12/08/142228 Date of Service: 12/08/142228 Status: Signed Hardener Helper: Cyndie Sousa (Production Control Coordinator) Michelle/Service Unit Operator contacted Cyndie Sousa 12/08/142228 onver wong Transaction, Provider Unknown - 12/08/2014 10:28 PM PDT ED Notes by Cyndie Sousa at 12/08/142227 Author: Cyndie Sousa Service: (none) Author Type: Production Control Coordinator Filed: 12/08/142227 Date of Service: 12/08/142227 Status: Signed Hardener Helper: Cyndie Sousa (Production Control Coordinator) EKG reviewed by Dr. Wilmer Sousa 12/08/142227 onver wong Transaction, Provider Unknown - 12/08/2014 10:26 PM PDT ED Notes by Mayte Velasquez RN at 12/08/142225 Author: Mayte Velasquez RN Service: (none) Author Type: Registered Nurse Filed: 12/08/142225 Date of Service: 12/08/142225 Status: Signed Hardener Helper: Mayte Velasquez RN (Registered Nurse) Bed: 11 Expected date: Expected time: Means of arrival: Comments: onver wong Transaction, Provider Unknown - 12/08/2014 10:24 PM PDT ED Notes by Mayte Velasquez RN at 12/08/142223 Author: Mayte Velasquez RN Service: (none) Author Type: Registered Nurse Filed: 12/08/142223 Date of Service: 12/08/142223 Status: Signed Hardener Helper: Mayte Velasquez RN (Registered Nurse) EKG in progress by MAUREEN Agee RN 12/08/142223 onver wong Transaction, Provider Unknown - 12/08/2014 8:52 PM PDT ED Notes by Sherif Edwards RN at 12/08/142051 Author: Sherif Edwards RN Service: (none) Author Type: Registered Nurse Filed: 12/08/142054 Date of Service: 12/08/142051 Status: Signed Hardener Helper: Sherif Edwards RN (Registered Nurse) Report from [facility]. Pt c/o chest pain while eating today. 3 sublingual nitro , 324 aspirin, 4 mg morhpine, and 20 mg metoprolol at [facility]. Hx: Smoking, , diabet es, HTN, [...] | | D-E Excursion: 1.62 cm E-F Mccone: 0.04 m/s EPSS: 0.48 cm | | [...] | | | 0.53 m/s TV Dec Mccone: 3.06 m/s2 TV Dec Time: 141.74 ms TV E | | | Darrell: 0.43 m/s TV E/A Ratio: 0.80 Iron Launder Operator: LUDY | | | Authenticated by: Lawrence Ortiz MD, FACC, FACP, FASIA Report | | | Date/Time: -- [id number] | | + + + + + | Procedure Note | + + | Scottie Rad Conversion - 03/08/2019 12:59 AM PDT Patient Name: Yo COLLADO | | of : 1940 Performing Physician: Lawrence Ortiz MD, [facility], | | FACP, | | FASNC [...] mlLAESV Index (A-L): 17.95 ml/m2LAAs A2C: 13.96 zq2PLSEK A-L A2C: 33.02 mlLALs | | A2C: 5.01 cmLAAs A4C: 13.50 ct7NLKMP A-L A4C: 34.03 mlLALs A4C: 4.54 cm%FS: | | 45.07 %EDV(Teich): 82.16 mlEF(Teich): 76.69 %ESV(Teich): 19.14 mlIVSd: 1.08 | | cmIVSs: 1.80 cmLVIDd: 4.28 cmLVIDs: 2.35 cmLVPWd: 1.26 cmLVPWs: 1.44 | | cmSV(Teich): 63.01 mlD-E Excursion: 1.62 cmE-F Mccone: 0.04 m/sEPSS: 0.48 cmIVC | | diameter: 1.95 cmIVC collapse: 1.02 cmIVC % collapse: 45.86 %HR: 77.28 BPMAV | | maxP.15 mmHgAV meanP.15 mmHgAV Vmax: 2.07 m/Magdaleno Vmean: 1.68 m/Magdaleno VTI: | | 44.75 cmAVA Vmax: 1.46 cm2AVA (VTI): 1.35 gz1IGMP Dopp: 2.72 l/dowj1NTFH Dopp: | | 5.34 l/minHR: 87.96 BPMLVOT [...] A Darrell: | | 0.53 m/sTV Dec Mccone: 3.06 m/s2TV Dec Time: 141.74 msTV E Darrell: 0.43 m/sTV E/A | | Ratio: 0.80 Iron Launder Operator: MIKAuthenticated by: Lawrence Ortiz MD, FACC, FACP, | | FASNCReport Date/Time: [id number]:27:20 IMPRESSION: 1. Overall left ventricular | | [...] | |D-E Excursion: 1.62 cm | |E-F Mccone: 0.04 m/s | |EPSS: 0.48 cm | [...] A Darrell: 0.53 m/s | |TV Dec Mccone: 3.06 m/s2 | |TV Dec Time: 141.74 ms | |TV E Darrell: 0.43 m/s | |TV E/A Ratio: 0.80 | | | |Iron Launder Operator: LUDY | |Authenticated by: Lawrence Ortiz MD, FACC, FACP, [facility] | |Report Date/Time: -- [id number]:27:20 | | | |IMPRESSION: | |1. Overall [...] + + | Historically converted procedure from [facility] environment | EXTERNAL LAB | + + [...] EXTERNAL | | | | performed at [facility];[address] | | LAB | | | | [facility];[place], [place] | | | | | | [address] | | | | + + + [...] | | | | | | ACUTE [place] Testing | | | | | | performed at [facility];[address] | | | | | | [facility];[place], [place] | | | | | | [address] | | | | + + + [...] | | | | | [place] [address] | | | | + + + + + + | Red Blood | 4.39Comment: Testing | 3.70 - 5.10 | EXTERNAL | | | Cells | performed at [facility], [address] | M/uL | LAB | | | Counted | [place], | | | | | | [place] [address] | | | | + + + + + + | Hemoglobin | 14.3Comment: Testing | 11.3 - 15.5 | EXTERNAL | | | | performed at [facility], [address] | g/dL | LAB | | | | [place], | | | | | | [place] [address] | | | | + + + + + + | Hematocrit, | 43.1Comment: Testing | 34.0 - 46.0 % | EXTERNAL | | | POC | performed at [facility], [address] | | LAB | | | | [address], | | | | | | [place] [address] | | | | + + + + + + | MCV | 98.2Comment: Testing | 80.0 - 100.0 fl | EXTERNAL | | | | performed at [facility], [address] | | LAB | | | | [address], | | | | | | [place] [address] | | | | + + + + + + | MCH | 32.7Comment: Testing | 27.0 - 34.0 pg | EXTERNAL | | | | performed at [facility], [address] | | LAB | | | | [address], | | | | | | [place] [address] | | | | + + + + + + | MCHC | 33.3Comment: Testing | 32.0 - 35.5 | EXTERNAL | | | | performed at [facility], [address] | g/dL | LAB | | | | [address], | | | | | | [place] [address] | | | | + + + + + + | RDW-CV | 44.2Comment: Testing | 37 - 53 fl | EXTERNAL | | | | performed at [facility], [address] | | LAB | | | | [address], | | | | | | [place] [address] | | | | + + + + + + | Platelet | 251Comment: Testing | 150 - 400 K/uL | EXTERNAL | | | Count | performed at [facility], [address] | | LAB | | | Plasma | [address], | | | | | | [place] [address] | | | | + + + + + + | MPV | 9.0Comment: Testing | fl | EXTERNAL | | | | performed at [facility], [address] | | LAB | | | | [address], | | | | | | [place] [address] | | | | + + + + + + | Differentia | AUTOMATEDComment: | | EXTERNAL | | | l Type | Testing performed at | | LAB | | | | [facility], [address] | | | | | | [place] | | | | | | [address] | | | | + + + + + + | % Segmented | 54.12Comment: Testing | % | EXTERNAL | | | | performed at [facility], [address] | | LAB | | | Neutrophils | [address], | | | | | | [place] [address] | | | | + + + + + + | % | 27.06Comment: Testing | % | EXTERNAL | | | Lymphocytes | performed at [facility], [address] | | LAB | | | | [place] [address], | | | | | | [place] [address] | | | | + + + + + + | % Monocytes | 11.70Comment: Testing | % | EXTERNAL | | | | performed at [facility], [address] | | LAB | | | | [address], | | | | | | [place] [address] | | | | + + + + + + | % | 6.04Comment: Testing | % | EXTERNAL | | | Eosinophils | performed at [facility], [address] | | LAB | | | | [address], | | | | | | [place] [address] | | | | + + + + + + | % Basophils | 1.08Comment: Testing | % | EXTERNAL | | | | performed at [facility], [address] | | LAB | | | | [address], | | | | | | [place] [address] | | | | + + + + + + | Absolute | 4.09Comment: Testing | 1.90 - 7.40 | EXTERNAL | | | Segmented | performed at [facility], [address] | K/uL | LAB | | | Neutrophils | [address], | | | | | | [place] [address] | | | | + + + + + + | Absolute | 2.04Comment: Testing | 1.00 - 3.90 | EXTERNAL | | | Lymphocytes | performed at [facility], [address] | K/uL | LAB | | | | [address], | | | | | | [place] [address] | | | | + + + + + + | Absolute | 0.88 (H)Comment: Testing | 0.00 - 0.80 | EXTERNAL | | | Monocytes | performed at [facility], [address] | K/uL | LAB | | | | [address], | | | | | | [place] [address] | | | | + + + + + + | Absolute | 0.46Comment: Testing | 0.00 - 0.50 | EXTERNAL | | | Eosinophils | performed at [facility], [address] | K/uL | LAB | | | | [address], | | | | | | [place] [address] | | | | + + + + + + | Absolute | 0.08Comment: Testing | 0.00 - 0.10 | EXTERNAL | | | Basophils | performed at [facility], [address] | K/uL | LAB | | | | [address], | | | | | | [place] [address] | | | | + + + [...] | | | | | [place] [address] | | | | + + + [...] EXTERNAL | | | | performed at [facility], [address] | | LAB | | | | [place] [address], | | | | | | [place] [address] | | | | + + + [...] EXTERNAL | | | | performed at [facility], [address] | | LAB | | | | [place] [address], | | | | | | [place] [address] | | | | + + + [...] EXTERNAL | | | | performed at [facility];[address] | | LAB | | | | [address] [place] | | | | | | [address] | | | | + + + [...] EXTERNAL | | | | performed at [facility], [address] | | LAB | | | | [address], | | | | | | [place], [place] [address] | | | | + + + + + + | Triglycerid | 174 (H)Comment: Testing | mg/dL | EXTERNAL | | | es | performed at [facility], [address] | | LAB | | | | [address], | | | | | | [place], [place] [address] | | | | + + + + + + | HDL | 46Comment: Testing | mg/dL | EXTERNAL | | | | performed at [facility], [address] | | LAB | | | | [address], | | | | | | [place], [place] [address] | | | | + + + + + + | LDL, | 115 (H)Comment: Testing | mg/dL | EXTERNAL | | | Calculated | performed at [facility], [address] | | LAB | | | | [address], | | | | | | [place], [place] [address] | | | | + + + [...] | | | | | [place] [address] | | | | + + + + + + | K | 3.8Comment: Testing | 3.5 - 4.9 | EXTERNAL | | | | performed at [facility], [address] | mmol/L | LAB | | | | [address], | | | | | | [place] [address] | | | | + + + + + + | Cl | 103Comment: Testing | 99 - 109 mmol/L | EXTERNAL | | | | performed at [facility], [address] | | LAB | | | | [address], | | | | | | [place] [address] | | | | + + + + + + | CO2 | 26Comment: Testing | 23 - 32 mmol/L | EXTERNAL | | | | performed at [facility], [address] | | LAB | | | | [address], | | | | | | [place] [address] | | | | + + + + + + | Anion Gap | 12Comment: Testing | 5 - 20 mmol/L | EXTERNAL | | | | performed at [facility], [address] | | LAB | | | | [address], | | | | | | [place] [address] | | | | + + + + + + | Glucose, | 134 (H)Comment: Testing | 65 - 99 mg/dL | EXTERNAL | | | Fasting | performed at [facility], [address] | | LAB | | | | [address], | | | | | | [place] [address] | | | | + + + + + + | BUN | 21Comment: Testing | 8 - 25 mg/dL | EXTERNAL | | | | performed at [facility], [address] | | LAB | | | | [address], | | | | | | [place] [address] | | | | + + + + + + | Creatinine | 0.72Comment: Testing | 0.50 - 1.00 | EXTERNAL | | | | performed at [facility], [address] | mg/dL | LAB | | | | [address], | | | | | | [place] [address] | | | | + + + + + + | BUN/Creatin | 29Comment: Testing | | EXTERNAL | | | ine Ratio | performed at [facility], [address] | | LAB | | | | [address], | | | | | | [place] [address] | | | | + + + + + + | Calcium | 9.0Comment: Testing | 8.5 - 10.5 | EXTERNAL | | | | performed at [facility], [address] | mg/dL | LAB | | | | [address], | | | | | | [place] [address] | | | | + + + + + + | Protein, | 6.2 (L)Comment: Testing | 6.3 - 8.2 g/dL | EXTERNAL | | | Total | performed at [facility], [address] | | LAB | | | | [place] [address], | | | | | | [place] [address] | | | | + + + + + + | Albumin | 3.6Comment: Testing | 3.3 - 4.8 g/dL | EXTERNAL | | | | performed at [facility], [address] | | LAB | | | | [place], | | | | | | [place] [address] | | | | + + + + + + | Globulin | 2.6Comment: Testing | 1.3 - 4.9 g/dL | EXTERNAL | | | | performed at [facility], [address] | | LAB | | | | [place], | | | | | | [place] [address] | | | | + + + + + + | A/G Ratio | 1.4Comment: Testing | 1.0 - 2.4 | EXTERNAL | | | | performed at [facility], [address] | | LAB | | | | [place] [address], | | | | | | [place] [address] | | | | + + + + + + | Bilirubin | 0.6Comment: Testing | 0.1 - 1.5 mg/dL | EXTERNAL | | | Total | performed at [facility], [address] | | LAB | | | | [address], | | | | | | [place] [address] | | | | + + + + + + | ALP, | 106Comment: Testing | 35 - 115 U/L | EXTERNAL | | | External | performed at [facility], [address] | | LAB | | | | [address], | | | | | | [place] [address] | | | | + + + + + + | AST | 43Comment: Testing | 10 - 45 U/L | EXTERNAL | | | | performed at [facility], [address] | | LAB | | | | [address], | | | | | | [place] [address] | | | | + + + + + + | ALT | 42Comment: Testing | 10 - 65 U/L | EXTERNAL | | | | performed at [facility], [address] | | LAB | | | | [address] [place], | | | | | | [place] [address] | | | | + + + [...] | | | | | | at [facility], [address] | | | | | | [address], | | | | | | [place] [address] | | | | + + + [...] | | | | | performed at [facility];[address] | | | | | | [facility];[place], [place] | | | | | | [address] | | | | + + + [...] (500), | | | | | | make up editor Bruna Torre | | | | | | (25) on 12/09/2014 | | | | | | 1:40:05 AM | | | | + + + + + + + + | Specimen | + + | | + + + + + | Narrative | Performed At | + + + | Historically converted procedure from [facility] environment | EXTERNAL LAB | + [...]
--- OUTSIDE RECORDS SUMMARY | ~2020-01-18 | XMS | Encounter Summary ---
Demographics + + + | Address | [address] | | | [place] [address] | + + + | Home Phone [...] [place], [place] | | | | | [address] | | + + + + + | Mercedes Lemus | ECON | [place] | | | | | [address] | | + + + + + Care Team Providers + +------+ + | Care Health Science Instructor Name | Role | Phone | + +------+ + PCP | Unavailable | + +------+ + Encounter Details +--------+ + + + + | Date | Type | Department | Care Team | Description | +--------+ + + + + | 03/21/ | Hospital | [facility] | Jose Juan Bo | | | 2011 | Encounter | [facility] | MD [address]by [address] | | | | | [address] [place] | [address] [place], [place] | | | | | [place], [place] | [address] | | | | | [address] | [phone] | | | | | [phone] | | | +--------+ + + + [...] | [facility] | [address] | [place] | [phone] | | [facility] | | [address] | | | - LABORATORY | | [...] | | Time | | seconds | [facility] | | | | [...] + | [facility] | [address] | [place] | [phone] | | [facility] | | [address] | | | - LABORATORY | | | | + + + + + | [facility] | [address] | [place], [place] | | | [facility] | | [address] [place] [address] | | | - LABORATORY | | [...] + | [facility] | [address] | [place], [place] | [phone] | | [facility] | | [address] | | | - LABORATORY | | | | + + + + + | [facility] | [address] | [place], [place] | | | [facility] | | [address], [facility] | | | - LABORATORY | | | | + + + + + Comprehensive Metabolic Panel (03/21/2012 4:17 PM PDT) + + + + + + | Component | Value | Ref Range | Performed | Pathologist | | | | | At | Signature | + + + + + + | Glucose | 102 | 70 - 109 mg/dL | [facility] | | | | [...] | | | Protein | | | [facility] | | | | | | [facility] | | | | | | C[facility] - | | | | | | LABORATORY | | + + + + + + | Albumin | 3.7 | 3.2 - 5.0 gm/dL | [facility] | | | | | | [facility] | | | | | [facility] | | | | | | [facility] - | | | | | | LABORATORY | | + + + + + + | BUN | 7 | 7 - 18 mg/dL | [facility] | | | | | | [facility] | | | | | | MEDICAL | | | | | | CENTER - | | | | | | LABORATORY | | + + + + + + | Creatinine | 0.62 | 0.60 - 1.30 | [facility] | | | | | mg/dL | [facility] | | | | | | MEDICAL [...] | | ine Ratio | | | [facility] | | | [...] + | [facility] | [address] | [place], [place] | [phone] | | [facility] | | [address] | | | - LABORATORY | | | | + + + + + | [facility] | [address] | [place], [place] | | | [facility] | | [id number] [place] [address] | | | - LABORATORY | | [...] + | [facility] | [address] | [place], [place] | [phone] | | [facility] | | [address] | | | - LABORATORY | | | | + + + + + | [facility] | [address] | [place], [place] | | | [facility] | | [address] | | | - LABORATORY | | | | + + + + + documented in this encounter Visit Diagnoses Not on filedocumented in this encounter"
--- OUTSIDE RECORDS SUMMARY | ~2020-01-18 | XMS | Encounter Summary ---
Demographics + + + | Address | [address] | | | [place] [address] | + + + | Home Phone | | + + + | Preferred Language | Unknown | + + + | Marital Status | | + + + | Roman Catholic Affiliation | 1041 | + + [...] [place], [place] | | | | | [address] | | + + + + + | Mercedes Lemus | ECON | [place] | | | | | [address] | | + + + + + Care Team Providers + +------+ + | Care Director Religious Education Name | Role | Phone | [...] + + | 06/07/ | Telephone | [facility] | Jose Juan Bo | Other (One year | | 2012 | | NEUROSURGERY [address] | MD [address] | x-ray results ) | | | | [address] [facility] [address] | [address] [place] | | | | | [place] | [address] | | | | | [address] | [phone] | | | | | [phone] | | | +--------+ + + + [...]
--- OUTSIDE RECORDS SUMMARY | ~2020-01-18 | XMS | Encounter Summary ---
Demographics + + + | Address | [address] | | | [place] [address] | + + + | Home Phone | | + + + | Preferred Language | Unknown | + + + | Marital Status | | + + + | Pentecostal Affiliation | 1041 | + + + [...] [place], [place] | | | | | [address] | | + + + + + | Mercedes Lemus | ECON | [place] | | | | | [address] | | + + + + + Care Team Providers + +------+ + | Care Fruit Grader Operator Name | Role | Phone | [...] | | | | Major Joint | [address] | | | | | | Right | Phone: | | | | | | | [phone] | | | | | | | Fax: | | | | | | | [phone] | | +--------+--------+ + + + + [...] | Lumbar | [place], | [address] | | | | | radiculopath | Cecilio Ortiz MD | [place], | | | | | y | [address] | [place] | | | | | Procedures | [place] | [address] | | | | | AL INJECT | [place], [place] | Phone: | | | | | ANES/STEROID | [address] | [phone] | | | | | FORAMEN | Phone: | Fax: | | | | | LUMBAR/SACRA | [phone] | [phone] | | | | | L W IMG | Fax: | | | | | | GUIDE ,1 | [phone] | | | | | | LEVEL AL | | | | | | | [...] + + | 04/16/ | Hospital | [facility] | Angus, | Spinal stenosis of | | 2018 | Encounter | MED CTR XRAY [address] | DANIA Perez [address] | lumbar region with | | | | [place] | [address] , [address] | radiculopathy; S/P | | | | [place] [address] | [place] [address] | lumbar fusion; | | | | [phone] | [phone] | Chronic pain of | | | | | | right knee | | | | | Business Development ProfessionalShukri | | | | | | [place] [...] + + | Performing | Address | City[facility] | Phone Number | | Organization | [...] 2:00 | | | | | ONCE, 04/16/18 at 1400, For 1 | | PM [...] | | | | | Other, ONCE, 04/16/18 at 1400, | | PM PDT | [...] | | (Comment | | Intradermal, ONCE, Mon04/16/18 at | | PM PDT | | [...] PDT | | | | | ONCE, Mon04/16/18 at 1430, For 1 | | | | | | | dose, Shake well. Not for IV | | | | | | | use., | | | | | | + +-------+ +-------+---+---+ +---+---+ | | | +---+---+ documented in this encounter"
--- OUTSIDE RECORDS SUMMARY | ~2020-01-18 | XMS | Encounter Summary ---
Demographics + + + | Address | [address] | | | [place] [address] | + + + | Home Phone | | + + + | Preferred Language | Unknown | + + + | Marital Status | | + + + | Lutheran Affiliation | 1041 | + + + [...] [place], [place] | | | | | [address] | | + + + + + | Mercedes Lemus | ECON | [place] | | | | | [address] | | + + + + + Care Team Providers + +------+ + | Care Billet Sawyer Name | Role | Phone | + [...] + + | 08/31/ | Office | [facility] | Cecilio Ram | Lumbar radiculopathy | | 2018 | Visit | PHYSIATRY [address] | MD Diana [address] | (Primary Dx); | | | | [address] | ST [place], [place] | Spinal stenosis of | | | | [place], [place] | [address] | lumbar region with | | | | [address] | | radiculopathy; S/P | | | | [phone] | | lumbar fusion; | | | [...] of the procedure you must provide a regional refrigerated cdl truck driver to take you home. For all procedur es it is recommended that someone else drive you home. documented in this encounter Progress Notes Cecilio Ram MD - 08/31/2017 9:30 AM PST Cecilio Ram MD [address] [facility], [address] [place] [address] FAX: PHYSICAL MEDICINE AND REHABILITATION [...] and the sy mptoms [facility] back to below the knee. The [...] has no apparent deficits with short or horse racing analyst memory. She has appropriate fund of knowledge [...]
--- OUTSIDE RECORDS SUMMARY | ~2020-01-18 | XMS | Encounter Summary ---
Demographics + + + | Address | [address] | | | [place] [address] | + + + | Home Phone | | + + + | Preferred Language | Unknown | + + + | Marital Status | | + + + | Religion Affiliation | 1041 | + + + | Race | Unknown | + + + | Ethnic Group | Unknown | + + + Author + + + | Author | [facility] | | | and [place] | + + + | Organization | [facility] | | | [...] [place], [place] | | | | | [address] | | + + + + + | Mercedes Lemus | ECON | [place] | | | | | [address] | | + + + + + Care Team Providers + +------+ + | Care Aircraft Electronics Technical Officer Name | Role | Phone | [...] | | fusion | [place], [place] | [place] | | | | | Procedures | [address] | [place], | | | | | MRI Lumbar | Phone: | [place] [address] | | | | | Spine wo | [phone] | Phone: | | | | | Contrast | Fax: | [phone] | | | | | Faxed 10/20 | [phone] | Fax: | | | | | | | [phone] | +--------+--------+ + + + + Reason [...] | | | | , lumbar | [address] | [address] Phone: | | | | | region | Phone: | [phone] | | | | | | [phone] | Fax: | | | | | | Fax: | [phone] | | | | | | [phone] | | +--------+--------+ + + + + Encounter Details +--------+---------+ + + + | Date | Type | Department | Care Team | Description | +--------+---------+ + + + | 10/05/ | Office | [facility] | Cecilio Ram | Lumbar radiculopathy | | 2017 | Visit | [address]YSIATRY [address] | TMD [address] | (Primary Dx); S/P | | | | [address] | [place] | lumbar fusion; | | | | [place] | [address] | 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 female being seen today at the [facility] t of Dr. Ron Mccoy for [...] minutes if needed. Patient must have a warehouse associate driver. 2 tablet 0 lovastatin (MEVACOR) 20 [...] has no apparent deficits with short or termite renewal inspector memory. She has appropriate fund of knowledge [...] She wishes to have this done in [place] as that is irena ser to home. [...]
--- OUTSIDE RECORDS SUMMARY | ~2020-01-18 | XMS | Encounter Summary ---
Demographics + + + | Address | [address] | | | [place] [address] | + + + | Home Phone | | + + + | Preferred Language | Unknown | + + + | Marital Status | | + + + | Rastafari Affiliation | 1041 | + + + [...] [place], [place] | | | | | [address] | | + + + + + | Mercedes Lemus | ECON | [place] | | | | | [address] | | + + + + + Care Team Providers + +------+ + | Care Graduate Advisor Name | Role | Phone | + [...] + + | 09/01/ | Telephone | [facility] | Cecilio Ram | Injections | | 2017 | | PHYSIATRY [address] | T, [address] | | | | | [address] | [place] | | | | | [place] | [address] | | | | | [address] | | | | | | [phone] | | | +--------+ + + + [...]
--- OUTSIDE RECORDS SUMMARY | ~2020-01-18 | XMS | Encounter Summary ---
Demographics + + + | Address | [address] | | | [place] [address] | + + + | Home Phone [...] [place], [place] | | | | | [address] | | + + + + + | Mercedes Lemus | ECON | [place] | | | | | [address] | | + + + + + Care Team Providers + +------+ + | Care Lacing Operator Name | Role | Phone | [...] with | | | | [address] | [address] | radiculopathy | | | | [place] | [place] [address] | (Primary Dx); S/P | | | | [address] | [phone] | lumbar fusion | | | | [phone] | | | +--------+ + + + [...]
--- OUTSIDE RECORDS SUMMARY | ~2020-01-18 | XMS | Encounter Summary ---
Demographics + + + | Address | [address] | | | [place] [address] | + + + | Home Phone | | + + + | Preferred Language | Unknown | + + + | Marital Status | | + + + | Jain Affiliation | 1041 | + + + | Race | Unknown | + + + | Ethnic Group | Unknown | + + + Author + + + | Author | [facility] | | | and [place] | + + + | Organization | [facility] | | [...] [place], [place] | | | | | [address] | | + + + + + | Mercedes Lemus | ECON | [place] | | | | | [address] | | + + + + + Care Team Providers + +------+ + | Care Timber Girdler Name | Role | Phone | + [...] | Lumbar | [place], | [address] | | | | | radiculopath | Cecilio Ortiz MD | [place], | | | | | y | [address] | [place] | | | | | Procedures | [place] | [address] | | | | | [place] INJECT | [place], [place] | Phone: | | | | | ANES/STEROID | [address] | [phone] | | | | | FORAMEN | Phone: | Fax: | | | | | LUMBAR/SACRA | [phone] | [phone] | | | | | [address] W IMG | Fax: | | | | | | GUIDE ,1 | [phone] | | | | | | LEVEL [place] | | | | | | | [...] + + + + | 04/05/ | [facility] | [facility] | Cecilio Ram | Lumbar radiculopathy | | 2017 | Encounter | MED CTR XRAY [address] | T, [address] | | | | | [place] | [facility] [place] | | | | | [place] [address] | [address] | | | | | [phone] | | | | | | | Administrative Assistant Office ManagerShukri | | | | | | evans [...] Code M54.16 Mary Collado presents to the [facility] | | fluoroscopy suite for a [...] [address] | [address] | [place] | [phone] | | [facility] | | [address] | | | - IMAGING | | [...]
--- OUTSIDE RECORDS SUMMARY | ~2020-01-18 | XMS | Encounter Summary ---
Demographics + + + | Address | [address] | | | [place] [address] | + + + | Home Phone [...] [place], [place] | | | | | [address] | | + + + + + | Mercedes Lemus | ECON | [place] | | | | | [address] | | + + + + + Care Team Providers + +------+ + | Care Device Test Engineer Name | Role | Phone | [...] | Lumbar | [place], | [address] | | | | | radiculopath | Cecilio Ortiz MD | [place], | | | | | y | [address] | [place] | | | | | Procedures | [place] | [address] | | | | | [place] INJECT | [place], [place] | Phone: | | | | | ANES/STEROID | [address] | [phone] | | | | | [place] | Phone: | Fax: | | | | | LUMBAR/SACRA | [phone] | [phone] | | | | | [address] W IMG | Fax: | | | | | | GUIDE ,1 | [phone] | | | | | | LEVEL [...] + + | 08/31/ | Hospital | [facility] | Cecilio Ram | Lumbar radiculopathy | | 2018 | Encounter | MED CTR XRAY [address] | T, [address] | | | | | [place] | [place] | | | | | [place] [address] | [address] | | | | | [phone] | | | | | | | Platform AttendantShukri | | | | | | [place] [...] 2:15 | | | | | ONCE, [facility] 08/31/17 at 1430, For 1 | | [...] | | | | | Other, ONCE, [facility] 08/31/17 at 1430, | | PM PST [...]
--- OUTSIDE RECORDS SUMMARY | ~2020-01-18 | XMS | Encounter Summary ---
Demographics + + + | Address | [address] | | | [place] [address] | + + + | Home Phone | | + + + | Preferred Language | Unknown | + + + | Marital Status | | + + + | Taoist Affiliation | 1041 | + + + | Race | Unknown | + + + | Ethnic Group | Unknown | + + + Author + + + | Author | [facility] | | | and [place] | + + + | Organization | [facility] | | | [...] [place], [place] | | | | | [address] | | + + + + + | Mercedes Lemus | ECON | [place] | | | | | [address] | | + + + + + Care Team Providers + +------+ + | Care Division Leader Name | Role | Phone | + [...] | | | [address] [place] | [place] [address] | | | | | [place] [address] | | | | | | [phone] | | | +--------+ + + + [...]
--- OUTSIDE RECORDS SUMMARY | ~2020-01-18 | XMS | Encounter Summary ---
Demographics + + + | Address | [address] | | | [place] [address] | + + + | Home Phone | | + + + | Preferred Language | Unknown | + + + | Marital Status | | + + + | Oriental Orthodox Affiliation | 1041 | + + + | Race | Unknown | + + + | Ethnic Group | Unknown | + + + Author + + + | Author | [facility] | | | and [place] | + + + | Organization | [facility] | | | [...] [place], [place] | | | | | [address] | | + + + + + | Mercedes Lemus | ECON | [place] | | | | | [address] | | + + + + + Care Team Providers + +------+ + | Care Job Developer Name | Role | Phone | + +------+ + | Martell Hilario NP | PCP | | + +------+ + Encounter Details +--------+ + + + + | Date | Type | Department | Care Team | Description | +--------+ + + + + | 02/20/ | Orders Only | [facility] | Provider, | | | 2019 | | SYSTEM GENERIC OP | MD [address] | | | | | [address] | [address] | | | | | [address] [place], [place] | [place] [address] | | | | | [address] | | | | | | [phone] | | | +--------+ + + + [...]
--- OUTSIDE RECORDS SUMMARY | ~2020-01-18 | XMS | Encounter Summary ---
Demographics + + + | Address | [address] | | | [place] [address] | + + + | Home Phone | | + + + | Preferred Language | Unknown | + + + | Marital Status | | + + + | Voodoo Affiliation | 1041 | + + + | Race | Unknown | + + + | Ethnic Group | Unknown | + + + Author + + + | Author | [facility] | | | and [place] | + + + | Organization | [facility] | | | and [...] [place], [place] | | | | | [address] | | + + + + + | Mercedes Lemus | ECON | [place] | | | | | [address] | | + + + + + Care Team Providers + +------+ + | Care Assembling Inspector Name | Role | Phone | [...] | | PHYSIATRY [address] | [address]IA [address] | | | | | [address] | [address] | | | | | [place], [place] | [place] [address] | | | | | [address] | [phone] | | | | | [phone] | | | +--------+ + + + [...]
--- OUTSIDE RECORDS SUMMARY | ~2020-01-18 | XMS | Encounter Summary ---
Demographics + + + | Address | [address] | | | [place] [address] | + + + | Home Phone | | + + + | Preferred Language | Unknown | + + + | Marital Status | | + + + | Congregational Affiliation | 1041 | + + + | Race | Unknown | + + + | Ethnic Group | Unknown | + + + Author + + + | Author | [facility] | | | and [place] | + + + | Organization | [facility] | | | [...] [place], [place] | | | | | [address] | | + + + + + | Mercedes Lemus | ECON | [place] | | | | | [address] | | + + + + + Care Team Providers + +------+ + | Care Department Head [employer] Name | Role | Phone | + [...] + + | 11/05/ | Office | [facility] | Jose Juan Bo | Status post lumbar | | 2012 | Visit | NEUROSURGERY [address] | F[address] | spinal fusion | | | | [address] | [place], [place] | (Primary Dx) | | | | [place] | [address] | | | | | [address] | [phone] | | | | | [phone] | | | +--------+---------+ + + + [...] [address] [facility], [address] [place] [id number] FAX: NEUROSURGERY FOLLOW-UP CHIEF COMPLAINT: Chief Complaint [...] Performed At | + + + | [facility] | [facility] | | Department [address] [facility] | [facility] | | [ rep [address]] [ rep [facility] | | [facility]] Signed | - IMAGING | | | | | Patient Name: TREE COLLADO Physician: | | | ARRE.01 : 1940 Age: 72 Sex: F Unit #: [id number] | | | Exam Date: 11/05/12 Location: [facility] | | | Report #: [id number] Page: | | | %(RAD)RES..mtdd.print.filter("pg") of %(RAD) | | | RES..mtdd.print.filter("tpg") | | | | | | Accession Number: [id number] | | | LUMBAR SPINE LIMITED X-RAY, [...] Transcribed Date/Time: | | | 11/05/2012 11:58 Communications Coordinator: | | | <<Signature on File>> | | | Parker | | | Gisell Deluna MD11/05/124 <Electronically signed by Parker Jameson | | | Regi LPOEZ> Pakrer Deluna MD 11/05/12 1102 | | | Communications Coordinator: Notchblu Lggyzzbrksdaw49/15/13 2768 | | | Jose Juan Bo MD | | + + + + + + + + | Performing | Address | City/State/Zipcode | Phone Number | | Organization | | | | + + + + + | [address] | [address] | [place] | [phone] | | [facility] | | [address] | | | - IMAGING | | | | + + + + + documented in this encounter Visit Diagnoses + + | Diagnosis | + + | Status post lumbar spinal fusion - Primary Arthrodesis status | + + documented in this encounter
--- OUTSIDE RECORDS SUMMARY | ~2020-01-18 | XMS | Encounter Summary ---
Demographics + + + | Address | [address] | | | [place] [address] | + + + | Home Phone | | + + + | Preferred Language | Unknown | + + + | Marital Status | | + + + | Hinduism Affiliation | 1041 | + + + [...] [place], [place] | | | | | [address] | | + + + + + | Mercedes Lemus | ECON | [place] | | | | | [address] | | + + + + + Care Team Providers + +------+ + | Care Account Support Manager Name | Role | Phone | + +------+ + | Hector cMcoy DO | PCP | | + +------+ + Reason for Visit +---------+--------+ + | Reason | Onset | Comments | | | Date | | +---------+--------+ + | Results | 11/02/ | | | | 2016 | | +---------+--------+ + Encounter Details +--------+ + + + + | Date | Type | Department | Care Team | Description | +--------+ + + + + | 11/02/ | Telephone | [facility] | Cecilio Ram | Results | | 2016 | | PHYSIATRY [address] | [address] | | | | | [address] | [place] | | | | | [place] | [address] | | | | | [address] | | | | | | [phone] | | | +--------+ + + + [...] this encounter Miscellaneous Notes Telephone Encounter - Emperatriz Gomez CMA - 11/14/2016 10:23 AM PDTPatient states she does no t want to cancel or postpone her surgery so she will call to schedule injection after she aguilar s recovered. Patient states she picked up some Dr Cote relax and relief medicated foaming bath at [facility] and states this has helped with her back tremendously. elephone Encounter - Emperatriz Gomez CMA - 11/11/2016 10 :40 AM PDTRestrictions with steroid injections prior to surgery vary with orthopedic provide rs. Patient will need to find out how close to her surgery she can have the injection. Valenzuela d to inform patient. Unable to leave voicemail. elephone Encounter - Ting Rutherford - 11/11/2016 9:16 AM PDTLeann gallego states that orthopedic surgeon is recommending that she take care of her back pain before she undergoes surgery. She would like to proceed with injections. She is hoping to get sched uled for this before November 21. She was informed at this time that there are currently no open ings but that we could contact her if there were any cancellations once injection is authori gricel. elephone Encounter - Marina Giraldo CMA - 11/07/2016 2:46 PM PDTPatient states that she did do PT approximate ly 1 year ago which she reports did not help. She was informed that Dr. Ram recommend ed a trial of an epidural steroid injection. She does report that she is scheduled to have a knee replacement on November 21 so she would have to wait until after then. She was advised autumn t it might not be a bad idea to run this by her orthopedic surgeon as well as see how long a fter she has the surgery he would recommend she wait. Patient reports that she is already me ntally foggy and doesn't want to add on a medication that could potentially worsen that. Jocelyn diaz will call our office back when she is ready to proceed with injections.Electronically sign ed by Marina Cassidy CMA at 11/07/2016 2:52 PM PDTTelephone Encounter - Marina Cassidy CMA - 11/07/2016 2:06 PM PDTCalled patient to discuss MRI results. Home number just ring s and rings, no voicemail box set up. Cell phone number states that she is not currently acc epting calls. elep jam Encounter - Cecilio Ram MD - 11/04/2016 1:10 PM PDTThe [facility]. 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 The report says mild to moderate but I thi nk it is worse than that. The stenosis is the likely source of her current symptoms. Need to clarify if she has had recent PT. If she has and if it didn't help then the next s tep would be an epidural injection, left L4-L5 TFESI which would put the medication right be low the area of worst stenosis. Gabapentin could also be an option if she wants to give that a try. elephone Ting Samson - 11/02/2016 10:39 AM PDTPatient would like to discuss results of recent lumbar MRI. Images are on isite. A M PDTdocumented in this encounter Plan of Treatment Not on filedocumented as of this encounter Visit Diagnoses Not on filedocumented in this encounter"
--- OUTSIDE RECORDS SUMMARY | ~2020-01-18 | XMS | Encounter Summary ---
Demographics + + + | Address | [address] | | | [place] [address] | + + + | Home Phone | | + + + | Preferred Language | Unknown | + + + | Marital Status | | + + + | Christianity Affiliation | 1041 | + + + | Race | Unknown | + + + | Ethnic Group | Unknown | + + + Author + + + | Author | [facility] | | | and [place] | + + + | Organization | [facility] | | [...] [place], [place] | | | | | [address] | | + + + + + | Mercedes Lemus | ECON | [place] | | | | | [address] | | + + + + + Care Team Providers + +------+ + | Care Antenna Machine Operator Name | Role | Phone | + +------+ + PCP | Unavailable | + +------+ + Encounter Details +--------+ + + + + | Date | Type | Department | Care Team | Description | +--------+ + + + + | 05/10/ | Hospital | [facility] | Delbert Castro | | | 2011 - | Encounter | MED CTR IRF [address] | MD Dereck [address] | | | | | [place], | [address] [place] | | | 05/16/ | | [place] [address] | [place] [address] | | | 2011 | | [phone] | [phone] | | | | | | | [...] Delbert Castro MD - 05/16/2012 11:09 [place] [address] Patient Name: TREE COLLADO Provider: Fercho Castro MD Unit #: [id number] Locatio n: 3ER : 1940 ADMISSION DATE: 05/10/2012 [...] medically ready, she was magaña sferred to [facility] for further rehabilitation o n 05/11/2012. She was minimal assistance for lower body dressing, moderate assistance in to ileting and in and out of bed, prior to admission to rehabilitation. PERTINENT POSITIVES ON PHYSICAL EXAMINATION ON ADMISSION: Shoulder strength 4, elbow stren gth and lip reading teacher 4+, right hip strength 3, left hip [...] be discharged home in her [facility]'s care actually sooner than I expected. Her [...] to manage her at the level of [facility], and thus she was able to be discharge home to [place] about 2 days earlier than I expe [...] given #50 of t he Percocet. 10. Parkston for more moderate pain. FOLLOWUP: Follow up with Ron Mccoy DO, in approximately 2 weeks. No home health or ou tpatient therapies are set up, the patient did not feel she needed them or wanted them. Fol low up with Dr. Bo in 3 weeks. DICTATED BY: Fercho Castro MD, PHD Physiatry JOB #: [id number] EXT JOB #:[id number] cc: DO Jose Juan Henley MD <<Signature on File>> Fercho Castro MD05/16/12 1652 < documented in this encounter Consult Notes Delbert Castro MD - 05/11/2012 5:31 PM PDT [place], [place] [address] Patient Name: TREE COLLADO Provider: Fercho Castro MD Unit #: [id number] Locatio n: 3ER : 1940 DATE: 05/11/2012 CONSULTING PHYSICIAN: Fercho Castro MD, PHD COMBINATION HISTORY AND PHYSICAL/POST-ADMISSION PHYSICIAN EVALUATION/OVERALL PLAN OF CARE CHIEF COMPLAINT: Back pain and left leg pain. PRINCIPAL ILLNESS: This 71-year-old woman has had progressive back, left leg pain and weak ness that was refractory to conservative treatment, and was progressing in this. On 012 Dr. Bo did an L4 through S1 arthrodesis and pedicle screw fixation with excellen t benefit. Postoperatively, she only had some problems still with her left leg pain and wea kness. She had comorbid issues of obesity, diabetes, and transiently a delirium due to medi cations to control her pain. Thus, once she was medically ready she was transferred to [facility] [place] for further rehabilitation on 05/11/2012. Prior to this I reviewed the case with the ambulatory care nurse and the first day she was too darío patricia, the second day she participated very well, with the pain better controlled increased p ain medications. She is min assist lower body dressing, moderate assistance toileting and i n and out of bed. Thus, we thought she would be a good inpatient rehabilitation candidate. THIS IS A POST-ADMISSION REASSESSMENT: On followup she still needs min assist lower body d ressing, standby assistance upper body dressing, still moderate assistance for toileting, b ut transfers in and out of bed have improved to min assist. I did give some premedication t his morning and she reported the pain is better controlled with that. She has not yet done steps and gait is still limited due to pain, but is between 50 and 150 feet, contact guard assistance with close assistance when her left knee odessa. She still has some hip weaknes s that is contributing to this. Blood pressure is okay, 111 systolic up to 147. Heart rate in the 80s-90s. Orthostatic blo od pressure was checked and increases from 119-136, so no significant problems there. Heart rate went from 91-104 with standing, but in looking at the other heart rates it is general ly in the 70s-90s, but looking at some of yesterday's notes it was up to 109 heart rate, bu t that appears to be improving, it has been down to 78 at times. Thus, I also did some followup labs to make sure she does not have any significant anemia issues and her hemoglobin this morning was 13.3 and normal, and thus this is not related to her tachycardia. WBC 8.9, sodium 136, and normalized from 134, potassium 4.1, BUN 8, creat inine 0.65, glucose normal at 99. Urinalysis was positive for nitrites, but not for blood o r leukocytes, they are only trace and thus it was not felt to need a culture. She has been afebrile, also does not have any bladder symptomatology. However, her PVRs are slightly stefani vated at 240 up to 320. Thus, I will repeat the UA in case it has progressed, since I noted under the microscopic there was some bacteria. This can potentiate some bladder retention issues. REVIEW OF SYSTEMS CONSTITUTIONAL: No fever or chills. No weight gain or weight loss. HEENT: No problem with hearing, vision or swallowing. ENDOCRINE: She notes some diabetes issues, but the blood sugar was 132 when I saw her at 4 :30 p.m. today, so no significant problems there. SKIN: No unusual bruising or bleeding. MUSCULOSKELETAL: Left leg is still weak, but she actually feels like it is definitely bett er and it certainly was improved from yesterday. NEUROLOGIC: She has lumbar stenosis issues, but no Parkinson's disease or stroke problems. PSYCHIATRIC: No psychiatric issues. CARDIAC: No chest pain or angina. PULMONARY: No pulmonary issues. Good O2 saturations. : No incontinence of bowel or bladder, but she does have this mild urinary retention, 32 0 mL on last void. GI: She has occasional nausea but no vomiting, hematemesis, diarrhea or bright red blood p er rectum, so I did continue her Zofran. PAST MEDICAL HISTORY: Diabetes, obesity, hypertension, hyperlipidemia, bilateral knee oste oarthritis with total hip replacements bilaterally. ALLERGIES: NO KNOWN ALLERGIES. PRESENT MEDICATIONS 1. Zofran p.r.n., but not needed any since on rehabilitation. 2. Tylenol p.r.n. 3. Prinivil 20 mg daily. 4. Maalox p.r.n. 5. Paxil 20 mg daily. 6. Ambien 10 mg at bedtime p.r.n. 7. Glucophage 500 mg in the morning. 8. D50 p.r.n. 9. Dulcolax p.r.n. 10. Colace 100 mg twice a day and p.r.n. 11. Milk of magnesia p.r.n. 12. GlycoLax p.r.n. 13. Senna p.r.n. and 2 tablets daily, but stop if she has any diarrhea. 14. Fleets p.r. n. 15. Cyclobenzaprine 10 mg t.i.d. p.r.n. muscle spasms. 16. Detrol 2 mg twice a day. 17. Glucagon p.r.n. 18. Simvastatin 10 mg daily. 19. Insulin sliding scale. 20. Cepacol p.r.n. 21. Parkston 7.5, last dose at 1 p.m. today. 22. Percocet 7.5, last dose at 5 p.m. today. She did get her morning and noon dose and she noted that helped control the pain, and she does note she still has some mild secondary se dation from that, but was still able to do therapies. She is just aware she is not at her normal mental status. She does continue to episodicall y forget things and she forgot something that she had told the nurse previously while I was there, and repeated it about 3 minutes later. SOCIAL HISTORY: Her is Law, who is in fairly good condition. He is somewhat overw eight himself and he does have some back problems, so cannot do any lifting. They live in [facility] in a 1- story home, 2 steps in. PHYSICAL EXAMINATION GENERAL: She is awake and reports some mild sedation from just getting her pain medication , but it is controlling her pain well. HEENT: EOMI, PEERL. TMs not evaluated. Throat normal gag, no erythema. Tongue protrudes in midline. NECK: Supple. CARDIOVASCULAR: Regular rate and rhythm, rate 72. LUNGS: Decreased at the bases but otherwise clear. ABDOMEN: Very obese and slightly decreased bowel sounds, but no masses or tenderness appre ciated. EXTREMITIES: No unusual tone in the lower extremities. She has about 1+ ankle edema. NEUROLOGIC: Cranial nerves 2-12 are grossly intact. Muscle strength upper extremities: Scarlet ulder strength 4, elbow and lip reading teacher 4+, right hip 3, left 2+, right knee 4, left 4-, right ank le 4, left 2+. It is improved apparently from the surgery. Sensory evaluation: Normal light touch in the upper and lower extremities. Cerebellar exam: Normal lfqhwy-gktk-wujmjy, heel -to-buchanan not tested, no nystagmus, she knew approximately the right date and name of the ho spital, could follow 1 and 2-step commands in spite of being slightly sedated, but this is apparently transient and pain is controlled and she is still able to do therapies. Overall, she appears to have good insight and is not overdoing it. IMPRESSION 1. DECREASED ACTIVITIES OF DAILY LIVING AND MOBILITY DUE TO LUMBAR STENOSIS, STATUS POST DECOMPRESSION AND FUSION, PLUS DELIRIUM, DIABETES, OBESITY, AND OTHER COMORBIDITIES. She cou ld benefit from a short stay in inpatient rehabilitation since she needs PT, OT, Speech The rapy to do a cognitive screen and treat as appropriate, Frame Bender, Physiatric and Ac sing Intervention. PT will be working with bed mobility, transfers, and gait, with OT with ADLs and self-cares. 2. LUMBAR STENOSIS AND INSTABILITY WITH SCOLIOSIS, STATUS POST L4 THROUGH S1 DECOMPRESSION AND FUSION , WELL ARTHRODESIS PLACEMENT. She still has a mild left footdrop, but it is improved. The other ankle is a little bit weak, but not nearly so, and both hips are a l ittle bit weak, but part of this is simply due to back pain. Her pain is controlled, so abl e to do full therapies. 3. OBESITY. This is moderate, with BMI somewhat over 30, but less than 40. She is 5 feet 4 inches, 200 pounds. This will slow rehab slightly, but I do not think seriously. 4. DELIRIUM. This is clearing up, she is more active and pain is improving, and at this po int I think we have about the right balance so she able to do therapies without serious urvashi n. In 2-3 days, however , I have automatically ordered to taper it down and I will be evalu ating as this occurs. 5. MILD URINARY RETENTION. PVR up to 320 mL. Note: She has Detrol and so this is probably for some overactive bladder and so with the pain medications it may be causing this retenti on, so expect that will resolve, so will simply continue monitoring for now and treat if it is significant, say over 500 mL and unable to void. 6. DIABETES. Blood sugars less than 150-200 usually, on sliding scale insulin. 7. BILATERAL KNEE OSTEOARTHRITIS. This appears to be only playing a mild part in her rehab ilitation so far, it is not a serious problem. 8. HYPERTENSION. No problems. She did have some tachycardia spells, but expect this will a lso resolve when her deconditioning resolves. PLAN: A comprehensive plan of rehabilitation has been instituted through PT, OT, Speech Th erapy, Frame Bender, Physiatric and Nursing Intervention. PT is working with bed mobilit y, transfers, gait , balance and making sure the left leg does not give way her left ankle. OT is working with ADLs on self-cares, adaptive equipment, donning and doffing LSO during ADLs. Her home is too far away for home eval, so will have home health PT do that. Speech i s doing some cognitive screens serially. Rehab Nursing is working with bowel and bladder an d following the PVRs, as well as the pain medications, and overall doing very well in this somewhat complex patient. GOALS: Independent and safe in bed mobility, transfers and 250 feet ambulation with a fron t-wheel walker. Independent in feeding, grooming and hygiene as well as upper and lower ext remity dressing. She may need a little help with socks and shoes on the left, but her husba nd should be able to do that. Light homemaking and meal preparation through the annabel ld be my initial estimate, but will review this in the social service assist meeting next , during the team conference regarding the specifics of that and his ability to help. PVRs less than 200 mL, with no UTI, and hopefully just down the hydrocodone that she was o n before she came in to the hospital. PROGNOSIS: Good. ELOS: 7 days. POST-ADMISSION PHYSICIAN EVALUATION: Compared to the preadmission screen, the patient has done as well as I had hoped with the premedications. It is safe to initiate therapies, but the left ankle is still quite weak, and given her ob esity she is at high risk for falls and still has the episodic delirium issues, and so need s close monitoring for that. This admission is reasonable and necessary as she has both medical and functional problems as noted previously. The medical history is reviewed and notable for the L4 through S1 decompression arthrodesi s, fusion for scoliosis and instability with the left foot drop, obesity, diabetes and deli rium. This is to validate the patient's condition on admission, describe the clinical rehabilita tion complications and adverse medical conditions she is at risk for due to her comorbiditi es as well as the rigors of the rehab program, and the specific plan to avoid them. In 2-3 days if the left ankle is not better will look into an AFO. Meantime, will mainly work with protecting it, but it is coming along well, so I do not expect that to be a problem. Also, following PVRs to make sure this is not a problem, and I have ordered a followup UA. FUNCTIONAL GOALS: Predicted as under goals. OVERALL PLAN OF CARE: This individualized plan of care was developed today after discussin g the therapies with Nursing and reviewing all the data and seeing the patient. ESTIMATED LENGTH OF STAY: 7 days. MEDICAL PROGNOSIS: Good. ANTICIPATED INTERVENTIONS: Noted as under impression and plan. FUNCTIONAL OUTCOMES: Noted as under goals. DISCHARGE DESTINATION: Home with her in [place] in a 1-story home, 2 steps in, w [facility] home health PT to their home safety eval. EXPECTED THERAPIES: PT 1-1/2 hours a day 7 days a week. OT 1-1/4 to 1-1/2 hours a day 6 da ys a week. Speech 1/4 to 1/2 hour a day, probably on 3-4 occasions, and once they sign off then OT will go up to 1 -1/2 hours a day. This care plan will be updated as the patient's condition changes and with input from the interdisciplinary team. Will have a team conference next Monday for this. At that time liat carpenter review the 's ability to help, also. DICTATED BY: Fercho Castro MD, PHD Physiatry JOB #: [id number] EXT JOB #:[id number] <<Signature on File>> Fercho Castro MD05/12/12 1245 < documented in this encounter Plan of [...] - 1.030 | [facility] | | | [place], | | | [facility] | | [...] [address] | [place] | [phone] | | [facility] | | [address] | | | - LABORATORY | | | | + + + + + | [facility] | [address] | [place] | | | [facility] | | [address], [facility] | | | - LABORATORY | [...] | | | DIFFERENTIA | | | ST[facility]ap[facility] BHATIA | | | L ? | [...] 0.0 | 0.0 - 0.1 K/uL | [facility] | | | Basophils | | | [facility] | | [...] + | [facility] | [address] | [place], [place] | [phone] | | [facility] | | [address] | | | - LABORATORY | | | | + + + + + | [facility] | [address] | [place], [place] | | | [facility] | | [address], [facility] | | | - LABORATORY | [...] 99 | 70 - 109 mg/dL | [facility] [...] | | GFR | -Americans, | | [facility] | | | | please multiply [...] | 10.1 | 6.0 - 17.0 | [facility] | | | | | [...] [address] | [place] | [phone] | | [facility] | | [address] | | | - LABORATORY | | | | + + + + + | [facility] | [address] | [place] | | | [facility] | | [address], [facility] | | | - LABORATORY | | | | + + + + + UA, Microscopic, Reflex (05/10/2012 9:18 PM PDT) + + + [...] + | Culture | NO | | [facility] | | | Indicated | | | [facility] | | [...] + | [facility] | [address] | [place], [place] | [phone] | | [facility] | | [address] | | | - LABORATORY | | | | + + + + + | [facility] | [address] | [place] | | | [facility] | | [phone] [place] [address] | | | - LABORATORY | | [...] - 1.030 | [facility] | | | [place], | | | [facility] | | [...] + | [facility] | [address] | [place] | [phone] | | [facility] | | [address] | | | - LABORATORY | | | | + + + + + | [facility] | [address] | [place] | | | [facility] | | [address] [place] [address] | | | - LABORATORY | | | | + + + + + documented in this encounter Visit Diagnoses Not on filedocumented in this encounter"
--- OUTSIDE RECORDS SUMMARY | ~2020-01-18 | XMS | Encounter Summary ---
Demographics + + + | Address | [address] | | | [place] [address] | + + + | Home Phone [...] + + | Author | [facility] | | | and [place] | + + + | Organization | [facility] | | | [...] [place], [place] | | | | | [address] | | + + + + + | Mercedes Lemus | ECON | [place] | | | | | [address] | | + + + + + Care Team Providers + +------+ + | Care Rack Cleaner Name | Role | Phone | [...] | | | | | | | [address] | | | | | | | Phone: | | | | | | | [phone] | | | | | | | Fax: | | | | | | | [phone] | | +--------+ + + + + + + + | Scheduling Instructions | + + | PHYSICAL THERAPY: TEACH LUMBAR HYGIENE; SAFETY, ERGONOMICS, MECHANICS, POSTURE, & | | BALANCE FOR 1-2 VISITS. LIFTING LIMITS ARE FOLLOWS: MONTH 1: 5 POUNDS | | MONTH 2: 15-25 POUNDS MONTH 3: 25-30 POUNDS AFTER THAT TOLERATED PLEASE FAX | | RESULTS UPON COMPLETION TO [phone] | + + Reason for Visit + [...] [place] | | | | | | [address] | | | | | | [phone] | | | +--------+ + + + [...] was on Monday. She was [facility] to [facility] on 05/18[facility]12, and was released that [...] [facility] | MUNDAY | | Department [address] [place] | [facility] | | [ rep ct [address]] [ rep ct [facility] | | st zip] Signed | - IMAGING | | | | | Patient Name: TREE COLLADO Physician: | | | [email or web address] : 1940 Age: 71 Sex: F Unit #: [id number] | | | Exam Date: 06/19/12 Location[place] [facility] | | | Report #: [id number] Page: | | | %(RAD)RES..mtdd.print.filter("pg") of %(RAD) | | | RES..mtdd.print.filter("tpg") | | | | | | Accession Number: [id number] | | | LUMBAR SPINE CLINICAL HISTORY: [...] Transcribed | | | Date/Time: 06/19/2012 15:31 Proj Mgr: | | | <<Signature on File>> | | | | | | Johnathan Alford MD06/19/12 1720 <Electronically signed by | | | Johnathan Alford MD> Johnathan Alford MD 06/19/12 | | | 1519 Proj Mgr: Coiney [id number]/27/12 1531 | | | Jose Juan Bo MD | | + + + + + + + + | Performing | Address | City/State/Zipcode | Phone Number | | Organization | | | | + + + + + | [facility] | [address] | [place] | [phone] | | [facility] | | [address] | | | - IMAGING | | | | + + + + + documented in this encounter Visit Diagnoses + + | Diagnosis | + + | Status post lumbar spinal fusion - Primary Arthrodesis status | + + documented in this encounter
--- OUTSIDE RECORDS SUMMARY | ~2020-01-18 | XMS | Encounter Summary ---
Demographics + + + | Address | [address] | | | [place] [address] | + + + | Home Phone [...] [place], [place] | | | | | [address] | | + + + + + | Mercedes Lemus | ECON | [place] | | | | | [address] | | + + + + + Care Team Providers + +------+ + | Care Molecular Biology Director Name | Role | Phone | [...] + + | 06/19/ | Office | [facility] | Nish Gotti | Scoliosis of lumbar | | 2011 | Visit | NEUROSURGERY [address] | [address] | spine (Primary Dx); | | | | [address] | [address] [place], [place] | Spondylolisthesis of | | | | [place], [place] | [phone] | lumbar region; | | | | [address] | | Degenerative disc | | | | [phone] | | disease, lumbar; | | | [...] differ ent from the original. MARIJA Brooks [address] [place] [address], [address] [place], [place] [address] FAX: NEUROSURGERY SURGICAL FOLLOW-UP CHIEF COMPLAINT: Chief [...]
--- OUTSIDE RECORDS SUMMARY | ~2020-01-18 | XMS | Encounter Summary ---
Demographics + + + | Address | [address] | | | [place] [address] | + + + | Home Phone [...] [place], [place] | | | | | [address] | | + + + + + | Mercedes Lemus | ECON | [place] | | | | | [address] | | + + + + + Care Team Providers + +------+ + | Care Qm Nurse Name | Role | Phone | + +------+ + | Martell Hilario NP | PCP | | + +------+ + Encounter Details +--------+ + + + + | Date | Type | Department | Care Team | Description | +--------+ + + + + | 10/01/ | Emergency | [facility] | Wilman Campbell, | Acute left-sided low | | 2019 | | MEDICAL CENTER | MD Baeza Rodriguez Blrohan | back pain without | | | | EMERGENCY CENTER | [place] [address] | sciatica | | | | [address] | [phone] | | | | | [place], [place] | | | | | | [address] | | | | | | [phone] | | | +--------+ + + + [...] 0750 Date of Service: 10/01/18108 Status: Signed Die Attacher: Wilman Campbell MD (Physician) [facility] Department of Emergency Medicine 1:09 AM 10/01/2018 [...] and landed on her back. No care BLOOD SPLATTER ANALYST was reported. PCP: RON HARRIS Past Medical [...] 10/01/18122) Records Reviewed Nursing notes. No previous [facility] [place] visits available in [facility] for review. Labs & Radiology Results Laboratory [...] [place] [address] [place] [address] [facility] Emergency Department Emergency Medicine If symptoms worsen [address] [place] [address] Discharge Medications: Discharge Medication List as of [...] presence of Wilman Campbell MD. Signed by: Alexis Chairez 10/01/2018 2:38 AM Wilman Campbell MD 10/01/18 0750 onversion Transact ion, Provider Unknown - 10/01/2018 1:03 AM PDTFormatting of this note might be different fr om the original. ED Notes by Moira Juarez RN at 10/01/18102 Author: Moira Juarez RN Service: (none) Author Type: Registered Nurse Filed: 10/01/18103 Date of Service: 10/01/18102 Status: Signed Die Attacher: Moira Juarez RN (Registered Nurse) Pt's spouse [...]
--- OUTSIDE RECORDS SUMMARY | ~2020-01-18 | XMS | Encounter Summary ---
Demographics + + + | Address | [address] | | | [place] [address] | + + + | Home Phone | | + + + | Preferred Language | Unknown | + + + | Marital Status | | + + + | Alevism Affiliation | 1041 | + + + | Race | Unknown | + + + | Ethnic Group | Unknown | + + + Author + + + | Author | [facility] | | | and [place] | + + + | Organization | [facility] | | [...] [place], [place] | | | | | [address] | | + + + + + | Mercedes Leums | ECON | [place] | | | | | [address] | | + + + + + Care Team Providers + +------+ + | Care Rod And Tube Straightener Name | Role | Phone | + [...] + + | 05/14/ | Telephone | [facility] | Jose Juan Bo | Other (One year post | | 2012 | | NEUROSURGERY [address] | [facility] [address] | operative update ) | | | | [address] | [address] [place] | | | | | [place] | [address] | | | | | [address] | [phone] | | | | | [phone] | | | +--------+ + + + [...] be having X-rays done for review at [facility] Bon[facility] elephone Encount er - [place] [place] [...]
[~2020-01-18 16:10] MED LIST changes: +ERYTHROMYCIN1 GM OP
--- OUTSIDE RECORDS SUMMARY | 2020-01-18 16:14 | XMS ---
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 Care History Medical/Surgical 04/02/2019 [facility] - PATIENT HAS PCP FOLLOW UP APT ON 04/18/19 WITH KING CAPUTO. - Patient is currently established with [facility]. If patient is seen in the ED during business hours. Please contact CHWs at [facility]. Care Recommendation: This patient has had 5 [...] care. E.D. VISIT COUNT (12 MO.) [address] Anthony H. TOTAL 8 NOTE: Visits indicate total known visits. ED/C VISIT TRACKING (12 MO.) 01/18/2020 16:11 [facility] [place] TYPE: Emergency COMPLAINT: - WRIST PAIN 12/13/2019 11:15 [facility] TYPE: Emergency COMPLAINT: - EYE PAIN DIAGNOSES: - Ocular pain, left eye - Other watermelon inspector (current) drug therapy - Personal history of nicotine dependence - Hyperlipidemia, unspecified - Ocular pain, left eye - Essential (primary) hypertension - Other specified disorders of eye and adnexa - Type 2 diabetes mellitus without complications 08/03/2019 11:12 [facility] TYPE: Emergency DIAGNOSES: - Cough - Flank Pain - Pleurodynia 05/30/2019 19:17 [facility] TYPE: Emergency COMPLAINT: - NAUSEA, HEADACHE DIAGNOSES: - Type 2 diabetes mellitus without complications - USP (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 hypoglycemic drugs - Other jail (current) drug therapy - Personal history of nicotine dependence - Headache - Hyperlipidemia, unspecified - Essential (primary) hypertension - Viral infection, unspecified 05/29/2019 07:45 [facility] TYPE: Emergency COMPLAINT: - VOMITING DIAGNOSES: - Nausea with vomiting, unspecified - USP (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 hypoglycemic drugs - Other watermelon inspector (current) drug therapy - Essential (primary) hypertension - Hyperlipidemia, unspecified - Type 2 diabetes mellitus without complications - Personal history of nicotine dependence 04/04/2019 16:57 [facility] [place] TYPE: Emergency COMPLAINT: - HEAD/ LEFT ELBOW INJURY DIAGNOSES: - USP (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 hypoglycemic drugs - Essential (primary) hypertension - Unspecified injury of head, initial encounter - Other jail (current) drug therapy - Abrasion of left [...] Allergy status to narcotic agent status - USP (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 hypoglycemic drugs - Type 2 diabetes mellitus without complications - Other watermelon inspector (current) drug therapy - Concussion without loss of consciousness, initial encounter - Dizziness and giddiness - Essential (primary) hypertension INPATIENT VISIT TRACKING (12 MO.) No inpatient visits to display in this time frame [email or web address]
== END 2020-01-18 19:03 | disposition home or self-care (01) ==
LOC: ED 16:10
DX: M71.331 Other bursal cyst, right wrist (principal); E11.9 Type 2 diabetes mellitus without complications; I10 Essential (primary) hypertension; E78.5 Hyperlipidemia, unspecified; Z87.891 Personal history of nicotine dependence; Z88.5 Allergy status to narcotic agent; Z79.899 Other long term (current) drug therapy
CPT/HCPCS: 73110; 99283-25

== ENCOUNTER 2020-03-05 20:27 | Emergency (ER) | payer MEDICARE ==
[~2020-03-05] VITALS: Ht 162.6 cm; Wt 81.7 kg
--- OUTSIDE RECORDS SUMMARY | ~2020-03-05 | XMS | Encounter Summary ---
Demographics + + + | Address | [address] | | | [place] [address] | + + + | Home Phone | | + + + | Preferred Language | Unknown | + + + | Marital Status | | + + + | Mandaen Affiliation | 1041 | + + + | Race | Unknown | + + + | Ethnic Group | Unknown | + + + Author + + + | Author | [facility] | | | and [place] | + + + | Organization | [facility] | | | and [place] | + + + | Address | Unknown | + + + | Phone | Unavailable | + + + Support + + + + + | Name | Relationship | Address | Phone | + + + + + | Law Collado | ECON | [address] | | | | | [place], [place] | | | | | [address] | | + + + + + | Mercedes Lemus | ECON | [place] | | | | | [address] | | + + + + + Care Team Providers + +------+ + | Care Medical Superintendent Name | Role | Phone | + +------+ + | Hector Mccoy DO | PCP | | + +------+ + Encounter Details +--------+ + + + + | Date | Type | Department | Care Team | Description | +--------+ + + + + | 05/23/ | Orders Only | [facility] [place] | [facility] Bo | Acquired | | 2011 | | [address] | MD Kelby [address] | spondylolisthesis | | | | [address] | [place] | (Primary Dx) | | | | [place] | [address] | | | | | [address] | [phone] | | | | | [phone] | | | +--------+ + + + + Social History + +-------+ +--------+------+ | Tobacco Use | Types | Packs/Day | Years | Date | | | | | Used | | + +-------+ +--------+------+ | Never Assessed | | | | | + +-------+ +--------+------+ + + + | Sex Assigned at | Date Recorded | | | | + + + | Not on file | | + + + documented as of this encounter Plan of Treatment Not on filedocumented as of this encounter Visit Diagnoses + + | Diagnosis | + + | Acquired spondylolisthesis - Primary | + + documented in this encounter"
--- OUTSIDE RECORDS SUMMARY | ~2020-03-05 | XMS | Encounter Summary ---
Demographics + + + | Address | [address] | | | [place] [address] | + + + | Home Phone | | + + + | Preferred Language | Unknown | + + + | Marital Status | | + + + | Voodoo Affiliation | 1041 | + + + | Race | Unknown | + + + | Ethnic Group | Unknown | + + + Author + + + | Author | [facility] | | | and [place] | + + + | Organization | [facility] | | | [...] [place], [place] | | | | | [address] | | + + + + + | Mercedes Lemus | ECON | [place] | | | | | [address] | | + + + + + Care Team Providers + +------+ + | Care Sign Builder Supervisor Name | Role | Phone | + +------+ + | Hector Mccoy DO | PCP | | + +------+ + Encounter Details +--------+ + + + + | Date | Type | Department | Care Team | Description | +--------+ + + + + | 03/15/ | Orders Only | [facility] [place] | Angus, | Spinal stenosis of | | 2018 | | [address]SIATRY [address] | [address]ANIA [address] | lumbar region with | | | | [address] | [address] | radiculopathy | | | | [place] | [place] [address] | (Primary Dx); S/P | | | | [address] | [phone] | lumbar fusion | | | | [phone] | | | +--------+ + + + + Social History + + + +--------+ + | Tobacco Use | Types | Packs/Day | Years | Date | | | | | Used | | + + + +--------+ + | Former Smoker | Cigarettes | 1.5 | 20 | Quit: 11/05/1989 | + + + +--------+ + + +---+---+---+ | Smokeless Tobacco: | | | | | Never Used | | | | + +---+---+---+ + + +---------+ + | Alcohol Use | Drinks/Week | oz/Week | Comments | + + +---------+ + | Yes | 0 Standard drinks | 0.0 | Social | | | or equivalent | | | + + +---------+ + + + + | Sex Assigned at | Date Recorded | | | | + + + | Not on file | | + + + documented as of this encounter Plan of Treatment Not on filedocumented as of this encounter Results [place] ELOISA Lumbar Transforaminal (04/16/2018 1:55 PM PDT) + + | Specimen | + + | | + + + + -+ | Narrative | Performed At | + + -+ | 04/16/2018 | [facility] | | Bilateral Transforaminal Epidural Steroid Injections and Right Knee | | | Injection Diagnosis: Lumbar radiculopathy and Right Knee Pain With | | | Arthritis Mary Collado presents to the fluoroscopy suite for | | | fluoroscopically-guided bilateral L4-L5 transforaminal epidural | | | steroid injections as part of conservative management for chronic pain | | | with lumbar radiculopathy and degenerative disc disease. After | | | informed consent was obtained, the patient lay in the prone position | | | on the fluoroscopy table. The areas were identified under fluoroscopic | | | guidance. The areas were prepped and draped in sterile fashion. A | | | 25-gauge, 1.5-inch needle was inserted into each region and | | | approximately 3 mL of buffered 1% lidocaine was infused. Then, a | | | 22-gauge spinal needle was inserted into the posterior superior | | | transforaminal space bilaterally and advanced into the epidural space | | | under fluoroscopic guidance. Confirmation into the epidural space was | | | obtained with infusion of approximately 1 mL of Omnipaque contrast | | | which showed epidural flow as well as nerve sheath flow. Then, a | | | combination of 2 mL of 1% lidocaine and 1 mL of 10 mg/mL dexamethasone | | | was infused, divided between the two sides. A right knee injection | | | was also performed. The area was then prepped with chlorhexidine. | | | A 25 gauge 1 1/2 inch needle was then inserted into the joint | | | capsule. Attempted aspiration showed no fluid in the needle hub. A | | | combination of 1 mL of 40 mg/mL Kenalog and 4 ml 1% Lidocaine was | | | injected. The patient tolerated the procedures well and was | | | instructed to ice the areas for 15-20 minutes several times over the | | | next few days and to watch for any signs of infection. The patient | | | tolerated the procedure well without complications. Pre- and | | | post-procedure blood pressures were stable. The patient was given | | | verbal as well as written follow-up instructions. Prior to the start | | | of the procedure, the following were performed and/or verified, | | | including correct patient identity, correct site/side marked and | | | visible, agreement on the procedure to be done, correct patient | | | positioning and an accurate procedure consent form. Any safety | | | precautions based on clinical history and/or medication use have been | | | addressed. I personally performed the procedure above. Estimated blood | | | loss: MinimalComplications: NoneFindings: As expectedAnesthesia: | | | Local 1% Lidocaine | | |Prior to the start of the procedure, the following were performed and/or | | |verified, including correct patient identity, correct site/side marked and | | |visible, agreement on the procedure to be done, correct patient | | |positioning and an accurate procedure consent form. Any safety precautions | | |based on clinical history and/or medication use have been addressed. I | | |personally performed the procedure above. | | | | | |Estimated blood loss: Minimal | | |Complications: None | | |Findings: As expected | | |Anesthesia: Local 1% Lidocaine | | | | | | | | + + -+ + +---------+ + + | Performing | Address | City/State/Zipcode | Phone Number | | Organization | | | | + +---------+ + + | [facility] | | | | + +---------+ + + documented in this encounter Visit Diagnoses + + | Diagnosis | + + | Spinal stenosis of lumbar region with radiculopathy - Primary Spinal stenosis, lumbar | | region, without neurogenic claudication | + + | S/P lumbar fusion Arthrodesis status | + + documented in this encounter"
--- OUTSIDE RECORDS SUMMARY | ~2020-03-05 | XMS | Encounter Summary ---
Demographics + + + | Address | [address] | | | [place] [address] | + + + | Home Phone | | + + + | Preferred Language | Unknown | + + + | Marital Status | | + + + | Cheondoism Affiliation | 1041 | + + + [...] [place], [place] | | | | | [address] | | + + + + + | Mercedes Lemus | ECON | [place] | | | | | [address] | | + + + + + Care Team Providers + +------+ + | Care Plastics Factory Worker Name | Role | Phone | + +------+ + | Martell Hilario NP | PCP | | + +------+ + Encounter Details +--------+ + + + + | Date | Type | Department | Care Team | Description | +--------+ + + + + | 02/20/ | Orders Only | [facility] | Provider, | | | 2019 | | SYSTEM GENERIC OP | MD [address] | | | | | [address] | [address] | | | | | [address] [place], [place] | [place] [address] | | | | | [address] | | | | | | [phone] | | | +--------+ + + + [...]
--- OUTSIDE RECORDS SUMMARY | ~2020-03-05 | XMS | Encounter Summary ---
Demographics + + + | Address | [address] | | | [place] [address] | + + + | Home Phone | | + + + | Preferred Language | Unknown | + + + | Marital Status | | + + + | Sabianism Affiliation | 1041 | + + + | Race | Unknown | + + + | Ethnic Group | Unknown | + + + Author + + + | Author | [facility] | | | and [place] | + + + | Organization | [facility] | | | [...] [place], [place] | | | | | [address] | | + + + + + | Mercedes Lemus | ECON | [place] | | | | | [address] | | + + + + + Care Team Providers + +------+ + | Care Custom Home Installer Name | Role | Phone | + +------+ + | Hector Mccoy DO | PCP | | + +------+ + Encounter Details +--------+ + + + + | Date | Type | Department | Care Team | Description | +--------+ + + + + | 06/19/ | Hospital | [facility] | Jose Juan Bo | Status post lumbar | | 2011 - | Encounter | MED CTR XRAY [address] | [facility] [address] | spinal fusion | | | | [place] | [place], [place] | | | 06/21/ | | [place] [address] | [address] | | | 2011 | | [phone] | [phone] | | | | | | | [...] Performed At | + + + | [facility] | [place] | | Department [facility] [address] [place] | [facility] | | [ rep ct [address]] [ rep ct [facility] | | st zip] Signed | - IMAGING | | | | | Patient Name: MARY COLLADO Physician: | | | ARRE.01 : 1940 Age: 71 Sex: F Unit #: [id number] | | | Exam Date: 06/19/12 Location: [facility] | | | Report #: [id number] Page: | | | %(RAD)RES..mtdd.print.filter("pg") of %(RAD) | | | RES..mtdd.print.filter("tpg") | | | | | | Accession Number: [id number] | | | LUMBAR SPINE CLINICAL HISTORY: [...] Transcribed | | | Date/Time: 06/19/2012 15:31 Manager Rn Case: | | | <<Signature on File>> | | | | | | Johnathan Alford MD06/19/12 1720 <Electronically signed by | | | Johnathan Alford MD> Johnathan Alford MD 06/19/12 | | | 1519 Manager Rn Case: [employer] [id number]/27/12 1531 | | | Jose Juan Bo MD | | + + + + + + + + | Performing | Address | City/State/[facility] | Phone Number | | Organization | | | | + + + + + | [facility] | [address] | [place] | [phone] | | [facility] | | [address] | | | - IMAGING | | | | + + + + + documented in this encounter Visit Diagnoses + + | Diagnosis | + + | Status post lumbar spinal fusion Arthrodesis status | + + documented in this encounter
--- OUTSIDE RECORDS SUMMARY | ~2020-03-05 | XMS | Encounter Summary ---
Demographics + + + | Address | [address] | | | [place] [address] | + + + | Home Phone | | + + + | Preferred Language | Unknown | + + + | Marital Status | | + + + | Hindu Affiliation | [id number] | + + + | Race | Unknown | + + + | Ethnic Group | Unknown | + + + Author + + + | Author | [facility] | | | and [place] | + + + | Organization | [facility] | | | and [...] [place], [place] | | | | | [address] | | + + + + + | Mercedes Lemus | ECON | [place] | | | | | [address] | | + + + + + Care Team Providers + +------+ + | Care Machine Bander And Cellophaner Helper Name | Role | Phone | + +------+ + | Hector Harris DO | PCP | | + +------+ + Encounter Details +--------+ + + + + | Date | Type | Department | Care Team | Description | +--------+ + + + + | 12/08/ | Hospital | [facility] | Zac, | Chest pain | | 2015 - | Encounter | [facility] | MD [address] | | | | | CLINICAL DECISION | [address] | | | 12/09/ | | [address] | [place] [address] | | | 2015 | | [place], [place] | [phone] | | | | | [address] | | | | | | [phone] | | | +--------+ + + + [...] + + documented as of this encounter Discharge Summaries Scott Woods MD - 12/09/2014 4:34 PM PDTFormatting of this note might be differe nt from the original. Discharge Summaries by Scott Woods MD at 12/09/14 1634 Author: Scott Woods MD Service: Hospitalist Author Type: Physician Filed: 12/14/14 5244 Date of Service: 12/09/141633 Status: Signed General Surgeon: Scott Woods MD (Physician) Related Notes: Original Note by Scott Woods MD (Physician) filed at 12/09/14 16 42 [facility]: Hospitalist Physician Discharge Summary Pt: Tree Collado AGE/SEX: 74 y.o. female ROOM: [facility]/1121-1 PCP: SUSIE HARRIS : 1940 Admit date: 12/08/2014 Discharge date and time: 12/09/14 Admitting Physician: Tod Frank MD Discharge Physician: Scott Woods MD Consults: Primary Discharge Diagnoses: Principal Problem: Chest pain, unspecified Active Problems: Unspecified essential hypertension Chronic back pain Resolved Problems: * No resolved hospital problems. * Secondary Discharge Diagnoses: DM type 2. Discharged Condition: stable Significant Diagnostic Studies: Echo Cardiac Adult Complete 12/09/2014 1. Overall left ventricular systolic function is normal with, an EF between 65 - 70 %. 2. There is mild concentric left ventricular hypertrophy. 3. The diastolic filling p attern indicates impaired relaxation consistent with mild dysfunction (Grade I), which is no rmal for the patient's age. 4. There is mild aortic stenosis present. HPI and Hospital Course: Mrs. Collado is a 74-year-old female who has past medical history of type 2 diabetes raquel itus, hypertension, hyperlipidemia, chronic back pain with substernal chest pain. According to the patient, she was having lunch when she developed sudden severe substernal chest pain. The intensity of pain was around 10 out of 10. There was some radiation of pain to the righ t shoulder. The patient vomited once and had some shortness of breath and broke out into swe ating. She took some nitroglycerin with partial relief of pain. The patient called her famil y physician who suggested that she come to the emergency department. In the emergency room, the patient's blood pressure was normal but she was running a temperature of 100 degrees Fah renheit. Physical examination revealed tenderness over the left third costochondral junction that was reproducible in nature. D-dimer was normal. EKG showed normal sinus rhythm with no nspecific ST T wave abnormalities. HOSPITAL COURSE The patient received aspirin, Lipitor, and metoprolol. There was no recurrence of chest urvashi n while in the hospital. Three sets of cardiac enzymes were negative for acute VT. Nuclear m edicine stress test was ordered but patient had nitroglycerin paste until this morning hence this could not be done. It was suggested that the patient be in the hospital for one more n ight to have stress test done tomorrow. However, the patient wanted to go home and stated th at pain had been going on for some time now, off and on and had stress test done in August of this year that was read as normal. The patient most likely has costochondritis as she aguilar s reproducible tenderness over the costochondral junction and enzymes have been negative. Ec hocardiogram did not show any wall motion abnormalities and ejection fraction is normal. She has mild systolic murmur and echo showed mild aortic stenosis and I would suggest to straughnar care physician to repeat echocardiogram in about 1 year from now. In my opinion, the patie nt can be discharged home as she insists on going home today and does not to wait until wilma ow. I will request primary care physician to reassess her on next visit and make a decisio n whether the patient will need outpatient stress test or not. Meanwhile, I have advised the patient to resume lisinopril and metformin and continue to take the rest of her pain medica tions for chronic back pain. Discharge Vitals: Filed Vitals: 12/09/14 0426 12/09/14 0732 12/09/14 1134 12/09/14 1622 BP: 140/67 133/69 147/86 136/80 Pulse: 94 76 78 82 Temp: 97.9 F (36.6 C) 97.8 F (36.6 C) 98.1 F (36.7 C) 98 F (36.7 C) TempSrc: Oral Oral Oral Resp: 18 18 18 16 Height: Weight: SpO2: 96% 98% 94% 95% Discharge Exam: Constitutional: Alert and oriented to person, place, and time. Appears well-developed and w ell-nourished. Cardiovascular: Normal rate, regular rhythm, normal heart sounds with S1 and S2 and intact distal pulses. Exam reveals no gallop and no friction rub. Systolic murmur grade II/ ove r aortic area. Pulmonary/Chest: Effort normal and breath sounds normal. No stridor. No respiratory distres s. no wheezes. no rales. exhibits no tenderness. Abdominal: Soft. Bowel sounds are normal. exhibits no distension and no mass. There is no t enderness. There is no rebound and no guarding. Musculoskeletal: Normal range of motion.exhibits no tenderness. exhibits no edema. Neurological: Alert and oriented to person, place, and time. Has normal reflexes. display s normal reflexes. No cranial nerve deficit. Exhibits normal muscle tone. Coordination norm al. Skin: Skin is warm and dry. No rash noted. No erythema. No pallor. Psychiatric: Has a normal mood and affect. Behavior is normal. Judgment normal. LABS: Recent Labs Lab 12/09/14414 WBC 7.55 HGB 14.3 HCT 43.1 PLT 251 NEUTOPHILPCT 54.12 MONOPCT 11.70 Recent Labs Lab 12/09/145 NA 137 K 3.8 CL 103 CO2 26 BUN 21 CREATININE 0.72 PROT 6.2* BILITOT 0.6 ALT 42 AST 43 Invalid input(s): LABALBU Recent Labs Lab 12/09/14 0415 MG 2.1 No results for input(s): AMYLASE in the last 168 hours. No results for input(s): PHART, PO2ART, AKF1TGR, C1TPRIKZ, BEART in the last 168 hours. No results for input(s): APTT, INR, PTT in the last 168 hours. Recent Labs Lab 12/09/145 CKTOTAL 53 TROPONINI <0.020 CKMBINDEX 1.1 Disposition: Home. Patient Instructions: Medication List CONTINUE taking these medications AMBIEN 5 MG tablet Refills: 0 Generic drug: zolpidem cyclobenzaprine 10 MG tablet Refills: 0 Commonly known as: FLEXERIL HYDROcodone-acetaminophen 5-325 MG per tablet Refills: 0 Commonly known as: NORCO oxyCODONE-acetaminophen 5-325 MG per tablet Refills: 0 Commonly known as: PERCOCET Activity: activity as tolerated Diet: cardiac diet Wound Care: not applicable Total time of discharge: 35 minutes. This included talking to patient, examining patient, d iscussing outpatient plan of care, reconciling home medications and dictating discharge summ leigh. Follow-up with PCP in 1 week. Signed: Scott Woods MD 12/09/2014 4:34 PM documented in this encounter Medications at Time [...] + +---------+--------+ + | Cholecalciferol | Take 2,000 Units by | | 0 | | | | (VITAMIN D3) 2000 | mouth nightly. | | | | 7 | | UNITS CAPS | | | | | | + [...] +---------+--------+ + documented as of this encounter Progress Notes Anna Transaction, Provider Unknown - 12/09/2014 4:45 PM PDTFormatting of this note m ight be different from the original. Nurse Progress Note by Abby Weeks RN at 12/09/141644 Author: Abby Weeks RN Service: (none) Author Type: Registered Nurse Filed: 12/09/141647 Date of Service: 12/09/141644 Status: Signed General Surgeon: Abby Weeks RN (Registered Nurse) Pt stable and ambulated self from CDU for discharge home with family member here to provide transportation. Pt voices understanding of discharge instructions. Personal belongings with pt. onver wong Transaction, Provider Unknown - 12/09/2014 4:10 PM PDT Nurse Progress Note by Abby Weeks RN at 12/09/14 1610 Author: Abby Weeks RN Service: (none) Author Type: Registered Nurse Filed: 12/09/14 1622 Date of Service: 12/09/14 1610 Status: Signed General Surgeon: Abby Weeks RN (Registered Nurse) Dr Chuck perla. onver wong Transaction, Provider Unknown - 12/09/2014 3:34 PM PDT Case Management by Kristi Perez RN at 12/09/14 1534 Author: Kristi Perez RN Service: (none) Author Type: Registered Nurse Filed: 12/09/14 1534 Date of Service: 12/09/14 1534 Status: Signed General Surgeon: Kristi Perez RN (Registered Nurse) Discharge planning: CM spoke with the RN lead and/or the pt s RN regarding discharge need s. Per their report they did not identify financial, transportation, support or home safety needs at this time. I encouraged them to contact their RN to enter a CM consult as needs or questions arise. onver wong Transaction, Provider Unknown - 12/09/2014 4:23 AM PDT Nurse Progress Note by Abby Weeks RN at 12/09/14 0423 Author: Abby Weeks RN Service: (none) Author Type: Registered Nurse Filed: 12/09/14 1520 Date of Service: 12/09/14 0423 Status: Addendum General Surgeon: Abby Weeks RN (Registered Nurse) Related Notes: Original Note by Abby Weeks RN (Registered Nurse) filed at 12/09/14 14 55 Removed nitro patch now. onver wong Transaction, Provider Unknown - 12/09/2014 4:16 AM PDT Progress Notes by Carlita Aj RPH at 12/09/14415 Author: Carlita Aj RPH Service: (none) Author Type: Pharmacist Filed: 12/09/14415 Date of Service: 12/09/14415 Status: Signed General Surgeon: Carlita Aj RPH (Pharmacist) Clinical Pharmacy Note: Renal Monitoring Tree Collado 74 y.o. female Height: 162.6 cm Weight: 91.2 kg Serum Creatinine: 0.64 mg/dL (from [facility]) Estimated creatinine clearance - Cockcroft-Gault CrCl: 87 mL/min Pharmacy dosing for renal function per Dr. Gaspar. Currently there are no medications needing to be adjusted. Pharmacy will continue to monito r for changes in medication orders and in renal function and adjust accordingly per protocol . Carlita Aj PharmWilfredo 12/09/2014 4:15 AM docume nted in this encounter H&P Notes Tod Frank MD - 12/09/2014 12:41 AM PDTFormatting of this note might be diffe rent from the original. H&P by Tod Frank MD at 12/09/1440 Author: Tod Frank MD Service: Hospitalist Author Type: Physician Filed: 12/09/14 0103 Date of Service: 12/09/1440 Status: Signed General Surgeon: Tod Frank MD (Physician) [facility]: Hospitalist Admission History & Physical Date of Admission: 12/08/2014 Requesting Physician: Dr Guillen, Emergency Department Reason for Admission: Chest pain / Transfer from [facility] History Obtained From: patient CHIEF COMPLAINT: Chest pain HISTORY OF PRESENT ILLNESS The patient is a 74 y.o. female with significant past medical history of Hypertension, chr onic back pain who presents with Chest pain Patient refers having chest discomfort on and off for at least one year. Yesterday around 3 PM before having lunch she started developing severe chest discomfort. Located in the ret rosternal area. 10 out of 10 of intensity. Stabbing in quality. Radiated to her right ruiz ulder. Accompained with nausea and vomiting 1. Positive sweating and positive dyspnea. She tried to take some nitroglycerin sublingual with modest improvement of her pain. The pa in resolve spontaneously after 20-30 minutes. The patient called her medical provider who r ecommended to go to the ED for further assessment. The patient denies any recent cough, spu shilo production, fever, chills or night sweats. No history of lower extremity edema, paroxys mal nocturnal dyspnea or orthopnea. The patient is to refers some intermittent episodes of chest discomfort currently minimal. Right now refers being chest pain-free. In the ED EKG shows normal sinus rhythm, no acute ST changes. Q waves in the inferior leads. First set o f cardiac enzymes is negative. D-dimer is negative. A chest x-ray is negative for acute co nsolidation. Patient will be admitted under the hospital service for further management REVIEW OF SYSTEMS Review of Systems Constitutional: Positive for diaphoresis and fatigue. Negative for fever and chills. HENT: Negative for postnasal drip and rhinorrhea. Respiratory: Positive for shortness of breath. Negative for apnea, cough, choking and wheez ing. Cardiovascular: Positive for chest pain. Negative for palpitations and leg swelling. Gastrointestinal: Positive for nausea and vomiting. Negative for abdominal pain, diarrhea a nd abdominal distention. Genitourinary: Negative for dysuria and difficulty urinating. Musculoskeletal: Negative for arthralgias. Skin: Negative for color change. Neurological: Negative for dizziness, syncope, light-headedness and headaches. Psychiatric/Behavioral: Negative for confusion and agitation. History reviewed. No pertinent past medical history. History reviewed. No pertinent past surgical history. No current facility-administered medications on file prior to encounter. No current outpatient prescriptions on file prior to encounter. Allergies Allergen Reactions Dilaudid [Hydromorphone] GI Distress Immunizations: Influenza: Pneumoccocal: Allergies Allergen Reactions Dilaudid [Hydromorphone] GI Distress (Not in a hospital admission) History reviewed. No pertinent family history. History Social History Marital Status: Spouse Name: N/A Number of Children: N/A Years of Education: N/A Occupational History Not on file. Social History Main Topics Smoking status: Not on file Smokeless tobacco: Not on file Alcohol Use: Not on file Drug Use: Not on file Sexual Activity: Not on file Other Topics Concern Not on file Social History Narrative No narrative on file PHYSICAL EXAM Vital Signs: BP 137/74 | Pulse 80 | Temp(Src) 100 F (37.8 C) (Oral) | Resp 16 | Wt 91.173 kg (201 lb ) | SpO2 94% Physical Exam Constitutional: She is oriented to person, place, and time. She appears well-developed. HENT: Head: Normocephalic and atraumatic. Eyes: EOM are normal. Pupils are equal, round, and reactive to light. Neck: Neck supple. No JVD present. Cardiovascular: Normal rate. Exam reveals no gallop and no friction rub. Murmur heard. Aortic murmur systolic 3/6 Pulmonary/Chest: Effort normal. No respiratory distress. She has no wheezes. She has no ral es. She exhibits no tenderness. Abdominal: Soft. She exhibits no distension and no mass. There is no tenderness. There is n o rebound and no guarding. No hernia. Musculoskeletal: She exhibits no edema. Neurological: She is alert and oriented to person, place, and time. DATA Results Procedure Component Value Units Date/Time D -Dimer, Quantitative [[id number]] Collected: 12/08/145 Specimen Information: Blood Updated: 12/09/14 0002 D DIMER, QUANTITATIVE 0.39 mg/L FEU While blood cell 8.6, hemoglobin 16.3, hematocrit 49.2, platelet count 273. Sodium 138, potassium 3.7, chloride under 5, creatinine 0.64, glucose of 105, LFTs within n ormal limits BNP less than 5. Chest x-ray negative for acute consolidation. PROBLEM LIST Principal Problem: Chest pain, unspecified Active Problems: Unspecified essential hypertension Chronic back pain ASSESSMENT & PLAN Impression patient is a 74 y.o. female with significant past medical history of Hypertension, chronic back pain who presents with Chest pain TPN I - 0.00 EKG - normal sinus rhythm with no acute ST changes. Q waves in inferior leads. CxR -no obvious consolidation Assessment -Chest pain. History concerning for acute coronary syndrome. If workup is negative probab ly GERD in etiology -Aortic murmur,Systolic. Probably aortic stenosis -Hypertension Plan Will admit to observation Telemetry Cardiac enzymes 2 (moderate risk for acute coronary syndrome) EKG in the morning A1c and lipid panel in the morning If cardiac enzymes are negative will do a nuclear stress test in the morning Echocardiogram Nitroglycerin sublingual and morphine when necessary for pain Aspirin, beta kina, statin therapy DVT GI prophylaxis Code status - full code Disposition: Observation Code Status: No Order Primary Care Physician: SUSIE Frank MD 12/09/2014 documented i n this encounter ED Notes Parag Guillen MD - 12/08/2014 11:08 PM PDTFormatting of this note might be different fr om the original. ED Provider Notes by Parag Guillen MD at 12/08/14 9838 Author: Parag Guillen MD Service: (none) Author Type: Physician Filed: 12/09/14 0454 Date of Service: 12/08/142307 Status: Signed General Surgeon: Parag Guillen MD (Physician) [facility] Department of Emergency Medicine History of Present Illness Patient Identification Tree Collado is a 74 y.o. female. Patient information was obtained from patient. History/Exam limitations: none. Patient presented to the Emergency Department [facility] Room:1121/1121-1 Chief Complaint Chief Complaint Patient presents with Chest Pain transfer from [facility] The patient presents to ED with complaints of chest pain. Onset of symptoms was around 3:30 PM today with an improving course since that time. Symptoms are described to be of moderate severity and described as a "sharp, stabbing" sensation. Patient states her pain onset whil e she was at dinner and states it was the worst pain she has ever felt. She located her pain to the L side of the chest and reports she had radiation to her R arm. She states she prese nted to [facility] for evaluation and she was transferred to [facility] ED for further evaluat ion. Patient reports pain with inspiration, SOB, nausea, vomiting, and headache. Patient den ies fever, vision changes, cough, diarrhea, leg pain/swelling, or skin rash. Patient reports she was given NTG at [facility] with some relief. Patient reports she had an Angiogram in 2007 that showed 40% lesion. Primary Care Doctor: SUSIE HARRIS Past Medical History Diagnosis Date Hyperlipidemia Hypertension Diabetes mellitus, type 2 Coronary artery disease History reviewed. No pertinent past surgical history. Prior to Admission medications Not on File Allergies Allergen Reactions Dilaudid [Hydromorphone] GI Distress History Social History Marital Status: Spouse Name: N/A Number of Children: N/A Years of Education: N/A Occupational History Not on file. Social History Main Topics Smoking status: Never Smoker Smokeless tobacco: Not on file Alcohol Use: No Drug Use: No Sexual Activity: No Other Topics Concern Not on file Social History Narrative No narrative on file History reviewed. No pertinent family history. Review of Systems No fevers No chills Yes nausea Yes vomiting No decreased vision No hearing loss No difficulty swallowing Yes difficulty breathing Yes headache Yes chest pain No abdominal pain No weakness No rash No difficulty with urination No difficulty with bowel movement Pt does not report other relevant complaints except as described in the HPI See HPI for further relevant details. All systems otherwise negative, except as recorded above and as recorded in the HPI. Physical Exam BP 146/71 | Pulse 79 | Temp(Src) 100 F (37.8 C) (Oral) | Resp 16 | Wt 91.173 kg (201 lb ) | SpO2 92% INTERPRETATION OF VITALS Hypertensive, otherwise normal Pulse Oximetry interpretation: Hypoxemic PHYSICAL EXAM Appearance: Alert. No acute distress. Head: Normal external exam. No visible deformity. Eyes: Normal inspection. Clear. Equal. ENT: Normal external inspection of ears, nose, face. Neck: Supple. Moves without difficulty. CVS: Normal heart rate and rhythm. Pulse normal. Heart sounds normal. Equal radial pulses. Respiratory: No respiratory distress. Breath sounds normal. No rales or rhonchi. Abdomen: Soft and nontender. No rebound or guarding. Back: Moves without difficulty. Skin: Skin warm. Extremities: No deformity. No calf compression tenderness. No lower extremity edema. Neuro: Oriented. Moves all extremities. GCS 15. Medical Decision Making and Emergency Department Course ED Medical Decision Making: Patient has been having some chest pain. Could be cardiac cause and has been transferred fo r that reason. Will repeat troponin. She has had some dyspnea so will order D-dimer. Patient is well appearing and stable at this time. Will plan for admission. Per report from ony's, pt's CBC and CMP was normal. Troponin was normal ED Department Course: 11:49 PM. Discussed patient case with , hospitalist, who accepts patient for admi ssion and will evaluate her in the ED. 11:55 PM. Repeat troponin negative. 12:17 AM. Reviewed labs from 'danny: WBC normal, HGB 16.3, PLT 273, CMP: Normal- creatinine normal, glucose 105, AST 60, ALT 55, Alk Phos 137 Troponin normal, BNP is <5, CXR radiology read describes no acute findings. 12:18 AM. Patients d-dimer is negative. Reported results to Dr. Gaspar. Visit Vitals Filed Vitals: 12/09/14 0101 12/09/14 0213 12/09/14 0224 12/09/14 0426 BP: 135/74 127/66 145/81 140/67 Pulse: 80 84 80 94 Temp: 97 F (36.1 C) 98.5 F (36.9 C) 97.9 F (36.6 C) TempSrc: Oral Oral Oral Resp: 16 16 18 Height: 1.626 m (5' 4") Weight: 91.173 kg (201 lb) SpO2: 94% 94% 95% 96% Records Reviewed Reviewed nursing triage notes available to me at time of initial pt encounter. Orders Placed Orders Placed This Encounter Procedures NM myocardial perfusion SPECT (stress and rest) D -Dimer, Quantitative CBC W/Auto Diff (Reflex to Manual) CK MB Comprehensive metabolic panel CPK Lipid panel Magnesium Phosphorus Troponin I TSH Diet cardiac Diet NPO after midnight ISTAT Troponin Nursing communication Vital signs Telemetry - continuous Notify physician (SBP <100) Notify physician (chest pain) I/O - strict Weigh patient Measure height Hold beta blockers Oxygen instructions - prn Notify physician Place Compression Device; below knee Place anti-embolism; knee Place anti-embolism; thigh Pulse oximetry - continuous Up with assistance Full Code Adjust medication for creatinine clearance EKG Electrocardiogram, 12-lead Echo cardiac adult complete saline lock IV Refer to Observation Bed Request for Admission Fall precautions Aspiration precautions Fall precautions Laboratory Evaluation Labs Reviewed D-DIMER, QUANTITATIVE POC CARDIAC TROPONIN I have reviewed lab results from the emergency department workup. Abnormal results have bee n posted to the chart. Pertinent positive and negative findings have been addressed appropri ately. Radiology and EKG Evaluation Imaging Results None EKG Interpretation Time: 1624 Rate: 104 Rhythm: Sinus tachycardia T wave inversion in III, Q wave in III and AVF Interpreted by Gilmar Guillen MD EKG Interpretation Time: 1720 Rate: 97 Rhythm: Sinus T wave inversion in III Interpreted by Gilmar Guillen MD EKG Interpretation Time: 6 Rate: 79 Rhythm: Normal sinus T waves, unspecific ST changes, T wave inversion in V2 Interpreted by Gilmar Guillen MD ED Diagnosis Final diagnosis Chest pain Disposition: ED Disposition Admit/Observation Bed request special needs: None Diagnosis?: chest pain Additional Documentation Procedures Attending Note: Documentation assistance provided by Samanta Candelario (Scribe). Information recorded by the scribe has been reviewed and validated by me. Kishan alexis with its contents. Parag Guillen MD [facility] Parag Guillen MD 12/09/14 0454 onversio n Transaction, Provider Unknown - 12/08/2014 10:29 PM PDTFormatting of this note might be di fferent from the original. ED Notes by Cyndie Sousa at 12/08/142228 Author: Cyndie Sousa Service: (none) Author Type: Machine Filler Filed: 12/08/142228 Date of Service: 12/08/142228 Status: Signed General Surgeon: Cyndie Sousa (Machine Filler) Michelle/Disk Recordist contacted Cyndie Sousa 12/08/142228 onver wong Transaction, Provider Unknown - 12/08/2014 10:28 PM PDT ED Notes by Cyndie Sousa at 12/08/142227 Author: Cyndie Sousa Service: (none) Author Type: Machine Filler Filed: 12/08/142227 Date of Service: 12/08/142227 Status: Signed General Surgeon: Cyndie Sousa (Machine Filler) EKG reviewed by Dr. Wilmer Sousa 12/08/142227 onver wong Transaction, Provider Unknown - 12/08/2014 10:26 PM PDT ED Notes by Mayte Velasquez RN at 12/08/142225 Author: Mayte Velasquez RN Service: (none) Author Type: Registered Nurse Filed: 12/08/142225 Date of Service: 12/08/142225 Status: Signed General Surgeon: Mayte Velasquez RN (Registered Nurse) Bed: 11 Expected date: Expected time: Means of arrival: Comments: onver wong Transaction, Provider Unknown - 12/08/2014 10:24 PM PDT ED Notes by Mayte Velasquez RN at 12/08/142223 Author: Mayte Velasquez RN Service: (none) Author Type: Registered Nurse Filed: 12/08/142223 Date of Service: 12/08/142223 Status: Signed General Surgeon: Mayte Velasquez RN (Registered Nurse) EKG in progress by MAUREEN Agee RN 12/08/142223 onver wong Transaction, Provider Unknown - 12/08/2014 8:52 PM PDT ED Notes by Sherif Edwards RN at 12/08/142051 Author: Sherif Edwards RN Service: (none) Author Type: Registered Nurse Filed: 12/08/142054 Date of Service: 12/08/142051 Status: Signed General Surgeon: Sherif Edwards RN (Registered Nurse) Report from [facility]. Pt c/o chest pain while eating today. 3 sublingual nitro , 324 aspirin, 4 mg morhpine, and 20 mg metoprolol at [facility]. Hx: Smoking, , diabet es, HTN, high cholesterol. Sx: Tubal ligation, right shoulder. HR 79- R 16- BP 148/76. To us for chest pain rule out/cardiology. ETA 2199. Sherif Edwards RN 12/08/142054 docume nted in this encounter Plan of Treatment Not on filedocumented as of this encounter Procedures + +--------+ + + + | Procedure Name | Priori | Date/Time | Associated Diagnosis | Comments | | | ty | | | | + +--------+ + + + | ECHO COMPLETE | Routin | 12/09/2014 | | Results for this | | | e | 10:25 AM | | procedure are in the | | | | PDT | | results section. | + +--------+ + + + | ECG 12 LEAD | Routin | 12/09/2014 | | Results for this | | | e | 6:09 AM | | procedure are in the | | | | PDT | | results section. | + +--------+ + + + | EXTERNAL LAB: CBC | Routin | 12/09/2014 | | Results for this | | | e | 4:15 AM | | procedure are in the | | | | PDT | | results section. | + +--------+ + + + | LIPID PANEL | Routin | 12/09/2014 | | Results for this | | | e | 4:15 AM | | procedure are in the | | | | PDT | | results section. | + +--------+ + + + | TROPONIN I | Routin | 12/09/2014 | | Results for this | | | e | 4:15 AM | | procedure are in the | | | | PDT | | results section. | + +--------+ + + + | CK-MB | Routin | 12/09/2014 | | Results for this | | | e | 4:15 AM | | procedure are in the | | | | PDT | | results section. | + +--------+ + + + | TSH | Routin | 12/09/2014 | | Results for this | | | e | 4:15 AM | | procedure are in the | | | | PDT | | results section. | + +--------+ + + + | PHOSPHORUS | Routin | 12/09/2014 | | Results for this | | | e | 4:15 AM | | procedure are in the | | | | PDT | | results section. | + +--------+ + + + | MAGNESIUM | Routin | 12/09/2014 | | Results for this | | | e | 4:15 AM | | procedure are in the | | | | PDT | | results section. | + +--------+ + + + | CK TOTAL | Routin | 12/09/2014 | | Results for this | | | e | 4:15 AM | | procedure are in the | | | | PDT | | results section. | + +--------+ + + + | COMPREHENSIVE | Routin | 12/09/2014 | | Results for this | | METABOLIC PANEL | e | 4:15 AM | | procedure are in the | | | | PDT | | results section. | + +--------+ + + + | D-DIMER | Routin | 12/08/2014 | | Results for this | | | e | 11:25 PM | | procedure are in the | | | | PDT | | results section. | + +--------+ + + + | ECG 12 LEAD | Routin | 12/08/2014 | | Results for this | | | e | 10:26 PM | | procedure are in the | | | | PDT | | results section. | + +--------+ + + + documented in this encounter Results ECHO Complete (12/09/2014 10:25 AM PDT) + + | Specimen | + + | | + + + + + | Impressions | Performed At | + + + | 1. Overall left ventricular systolic function is normal with, an EF | | | between 65 - 70 %. 2. There is mild concentric left ventricular | | | hypertrophy. 3. The diastolic filling pattern indicates impaired | | | relaxation consistent with mild dysfunction (Grade I), which is normal | | | for the patient's age. 4. There is mild aortic stenosis present. | | + + + + + + | Narrative | Performed At | + + + | Patient Name: TREE COLLADO Date of : 1940 | | | Performing Physician: Lawrence Ortiz MD, | | | FACC, FACP, FASNC | | | | | | INDICATIONS Chest pain. CONCLUSIONS 1. | | | Overall left ventricular systolic function is normal with, an EF | | | between 65 - 70 %. 2. There is mild concentric left ventricular | | | hypertrophy. 3. The diastolic filling pattern indicates impaired | | | relaxation consistent with mild dysfunction (Grade I), which is normal | | | for the patient's age. 4. There is mild aortic stenosis present. | | | FINDINGS -------- ECG rhythm: Sinus rhythm with extra systolic | | | beats. Study: A 2-dimensional transthoracic echocardiogram with | | | m-mode, spectral and color flow Doppler was perfomed. Study: This was | | | a technically adequate study. Left Ventricle: Overall left | | | ventricular systolic function is normal with, an EF between 65 - 70 %. | | | Left Ventricle: Left Ventricle ejection fraction by m-mode measures | | | 77%. Left Ventricle: The left ventricle cavity size is normal. Left | | | Ventricle: There is mild concentric left ventricular hypertrophy. | | | Left Ventricle: The diastolic filling pattern indicates impaired | | | relaxation consistent with mild dysfunction (Grade I), which is normal | | | for the patient's age. Right Ventricle: The right ventricle is | | | normal in size. Right Ventricle: The right ventricular systolic | | | function is normal. Left Atrium: The left atrial size is normal Left | | | Atrium: , and the LA measures 3.1cm. Right Atrium: The right atrial | | | size is normal Right Atrium: , and the RA measures 4.1cm. Aortic | | | Valve: The aortic valve is trileaflet and appears structurally normal. | | | Aortic Valve: The aortic valve is mildly calcified. Aortic Valve: | | | There is no evidence of aortic regurgitation. Aortic Valve: There is | | | mild aortic stenosis present. Mitral Valve: The mitral valve is | | | normal. Mitral Valve: There is trace mitral regurgitation. Mitral | | | Valve: Mild mitral annular calcification present. Tricuspid Valve: | | | The tricuspid valve appears structurally normal. Tricuspid Valve: | | | Trace tricuspid regurgitation present. Tricuspid Valve: Right | | | ventricular systolic pressure (pulmonary artery systolic pressure) is | | | normal at < 35 mmHg. Pulmonic Valve: The pulmonic valve was not well | | | visualized. Pericardium: There is no pericardial effusion. | | | IVC/Hepatic Veins: The IVC is normal size (1.5-2.5cm) and collapses | | | <50% with sniff, consistent with central venous pressures of | | | 10-15mmHg. Mass: No mass visualized MEASUREMENTS | | | Ao Diam: 2.84 cm LA Diam: 3.13 cm LA Major: 3.91 cm | | | EDV(Teich): 74.43 ml IVSd: 0.97 cm LVIDd: 4.10 cm LVPWd: | | | 1.14 cm LVOT Diam: 1.98 cm %FS: 35.57 % EF(Teich): | | | 65.51 % ESV(Teich): 25.66 ml IVSs: 1.18 cm LVIDs: 2.64 cm | | | LVPWs: 1.16 cm SV(Teich): 48.76 ml RA Major: 4.05 cm | | | RVIDd: 3.04 cm LVEF MOD A2C: 66.95 % SV MOD A2C: 56.22 ml | | | LVEF MOD A4C: 63.77 % SV MOD A4C: 51.06 ml EF Biplane: | | | 65.35 % LVEDV MOD BP: 82.34 ml LVESV MOD BP: 28.52 ml LVEDV | | | MOD A2C: 83.98 ml LVLd A2C: 6.82 cm LVEDV MOD A4C: 80.06 ml | | | LVLd A4C: 6.74 cm LVESV MOD A2C: 27.75 ml LVLs A2C: 5.34 | | | cm LVESV MOD A4C: 28.99 ml LVLs A4C: 5.20 cm CO Biplane: | | | 4.15 l/min HR: 77.28 BPM R-R: 776.34 ms LAESV(A-L): 35.19 | | | ml LAESV Index (A-L): 17.95 ml/m2 LAAs A2C: 13.96 cm2 LAESV | | | A-L A2C: 33.02 ml LALs A2C: 5.01 cm LAAs A4C: 13.50 cm2 | | | LAESV A-L A4C: 34.03 ml LALs A4C: 4.54 cm %FS: 45.07 % | | | EDV(Teich): 82.16 ml EF(Teich): 76.69 % ESV(Teich): 19.14 | | | ml IVSd: 1.08 cm IVSs: 1.80 cm LVIDd: 4.28 cm LVIDs: | | | 2.35 cm LVPWd: 1.26 cm LVPWs: 1.44 cm SV(Teich): 63.01 ml | | | D-E Excursion: 1.62 cm E-F Hooker: 0.04 m/s EPSS: 0.48 cm | | | IVC diameter: 1.95 cm IVC collapse: 1.02 cm IVC % collapse: | | | 45.86 % HR: 77.28 BPM AV maxP.15 mmHg AV meanPG: | | | 12.15 mmHg AV Vmax: 2.07 m/s AV Vmean: 1.68 m/s AV VTI: | | | 44.75 cm BARI Vmax: 1.46 cm2 BARI (VTI): 1.35 cm2 LVCI Dopp: | | | 2.72 l/minm2 LVCO Dopp: 5.34 l/min HR: 87.96 BPM LVOT maxPG: | | | 3.87 mmHg LVOT meanP.40 mmHg LVSI Dopp: 31.02 ml/m2 | | | LVSV Dopp: 60.80 ml LVOT Vmax: 0.98 m/s LVOT Vmean: 0.74 | | | m/s LVOT VTI: 19.75 cm MCO: 487.98 ms MV A Darrell: 1.00 m/s | | | MV DecT: 203.72 ms MV E Darrell: 0.84 m/s MV E/A Ratio: 0.84 | | | MV PHT: 61.74 ms MVA By PHT: 3.56 cm2 MV A Dur: 99.81 ms | | | Septal e': 0.05 m/s Septal E/e': 14.29 Lateral e': 0.05 m/s | | | Lateral E/e': 14.29 P Vein A: 0.30 m/s P Vein A Dur: | | | 94.26 ms P Vein D: 0.33 m/s P Vein S/D Ratio: 1.66 P Vein S: | | | 0.54 m/s HR: 78.40 BPM PV maxP.47 mmHg PV meanPG: | | | 2.16 mmHg PV Vmax: 1.05 m/s PV Vmean: 0.69 m/s PV VTI: | | | 18.39 cm TR maxP.59 mmHg TR Vmax: 1.84 m/s TV A Darrell: | | | 0.53 m/s TV Dec Hooker: 3.06 m/s2 TV Dec Time: 141.74 ms TV E | | | Darrell: 0.43 m/s TV E/A Ratio: 0.80 Ultrasound Technologist: LUDY | | | Authenticated by: Lawrence Ortiz MD, FACC, FACP, FASHI Report | | | Date/Time: -- [id number] | | + + + + + | Procedure Note | + + | Scottie Rad Conversion - 03/08/2019 12:59 AM PDT Patient Name: Yo COLLADO | | of : 1940 Performing Physician: Lawrence Ortiz MD, [facility], | | FACP, | | FASNC INDICATIONS--------- | | --Chest pain. CONCLUSIONS 1. Overall left ventricular systolic function is | | normal with, an EF between 65 - 70 %.2. There is mild concentric left ventricular | | hypertrophy.3. The diastolic filling pattern indicates impaired relaxation consistent | | with mild dysfunction (Grade I), which is normal for the patient's age.4. There is mild | | aortic stenosis present. FINDINGS--------ECG rhythm: Sinus rhythm with extra systolic | | beats.Study: A 2-dimensional transthoracic echocardiogram with m-mode, spectral and | | color flow Doppler was perfomed.Study: This was a technically adequate study.Left | | Ventricle: Overall left ventricular systolic function is normal with, an EF between 65 - | | 70 %.Left Ventricle: Left Ventricle ejection fraction by m-mode measures 77%.Left | | Ventricle: The left ventricle cavity size is normal.Left Ventricle: There is mild | | concentric left ventricular hypertrophy.Left Ventricle: The diastolic filling pattern | | indicates impaired relaxation consistent with mild dysfunction (Grade I), which is | | normal for the patient's age.Right Ventricle: The right ventricle is normal in | | size.Right Ventricle: The right ventricular systolic function is normal.Left Atrium: The | | left atrial size is normalLeft Atrium: , and the LA measures 3.1cm.Right Atrium: The | | right atrial size is normalRight Atrium: , and the RA measures 4.1cm.Aortic Valve: The | | aortic valve is trileaflet and appears structurally normal.Aortic Valve: The aortic | | valve is mildly calcified.Aortic Valve: There is no evidence of aortic | | regurgitation.Aortic Valve: There is mild aortic stenosis present.Mitral Valve: The | | mitral valve is normal.Mitral Valve: There is trace mitral regurgitation.Mitral Valve: | | Mild mitral annular calcification present.Tricuspid Valve: The tricuspid valve appears | | structurally normal.Tricuspid Valve: Trace tricuspid regurgitation present.Tricuspid | | Valve: Right ventricular systolic pressure (pulmonary artery systolic pressure) is | | normal at < 35 mmHg.Pulmonic Valve: The pulmonic valve was not well | | visualized.Pericardium: There is no pericardial effusion.IVC/Hepatic Veins: The IVC is | | normal size (1.5-2.5cm) and collapses <50% with sniff, consistent with central venous | | pressures of 10-15mmHg.Mass: No mass visualized MEASUREMENTS Ao Diam: 2.84 | | cmLA Diam: 3.13 cmLA Major: 3.91 cmEDV(Teich): 74.43 mlIVSd: 0.97 cmLVIDd: | | 4.10 cmLVPWd: 1.14 cmLVOT Diam: 1.98 cm%FS: 35.57 %EF(Teich): 65.51 %ESV(Teich): | | 25.66 mlIVSs: 1.18 cmLVIDs: 2.64 cmLVPWs: 1.16 cmSV(Teich): 48.76 mlRA Major: | | 4.05 cmRVIDd: 3.04 cmLVEF MOD A2C: 66.95 %SV MOD A2C: 56.22 mlLVEF MOD A4C: | | 63.77 %SV MOD A4C: 51.06 mlEF Biplane: 65.35 %LVEDV MOD BP: 82.34 mlLVESV MOD BP: | | 28.52 mlLVEDV MOD A2C: 83.98 mlLVLd A2C: 6.82 cmLVEDV MOD A4C: 80.06 mlLVLd A4C: | | 6.74 cmLVESV MOD A2C: 27.75 mlLVLs A2C: 5.34 cmLVESV MOD A4C: 28.99 mlLVLs A4C: | | 5.20 cmCO Biplane: 4.15 l/minHR: 77.28 BPMR-R: 776.34 msLAESV(A-L): 35.19 | | mlLAESV Index (A-L): 17.95 ml/m2LAAs A2C: 13.96 [id number] A-L A2C: 33.02 mlLALs | | A2C: 5.01 cmLAAs A4C: 13.50 [id number] A-L A4C: 34.03 mlLALs A4C: 4.54 cm%FS: | | 45.07 %EDV(Teich): 82.16 mlEF(Teich): 76.69 %ESV(Teich): 19.14 mlIVSd: 1.08 | | cmIVSs: 1.80 cmLVIDd: 4.28 cmLVIDs: 2.35 cmLVPWd: 1.26 cmLVPWs: 1.44 | | cmSV(Teich): 63.01 mlD-E Excursion: 1.62 cmE-F Hooker: 0.04 m/sEPSS: 0.48 cmIVC | | diameter: 1.95 cmIVC collapse: 1.02 cmIVC % collapse: 45.86 %HR: 77.28 BPMAV | | maxP.15 mmHgAV meanP.15 mmHgAV Vmax: 2.07 m/Magdaleno Vmean: 1.68 m/Magdaleno VTI: | | 44.75 cmAVA Vmax: 1.46 cm2AVA (VTI): 1.35 dm1SIXX Dopp: 2.72 l/vwyn3VKPG Dopp: | | 5.34 l/minHR: 87.96 BPMLVOT maxP.87 mmHgLVOT meanP.40 mmHgLVSI Dopp: | | 31.02 ml/m2LVSV Dopp: 60.80 mlLVOT Vmax: 0.98 m/sLVOT Vmean: 0.74 m/sLVOT VTI: | | 19.75 cmMCO: 487.98 msMV A Darrell: 1.00 m/sMV DecT: 203.72 msMV E Darrell: 0.84 m/sMV | | E/A Ratio: 0.84MV PHT: 61.74 msMVA By PHT: 3.56 cm2MV A Dur: 99.81 msSeptal e': | | 0.05 m/sSeptal E/e': 14.29Lateral e': 0.05 m/sLateral E/e': 14.29P Vein A: | | 0.30 m/sP Vein A Dur: 94.26 msP Vein D: 0.33 m/sP Vein S/D Ratio: 1.66P Vein S: | | 0.54 m/sHR: 78.40 BPMPV maxP.47 mmHgPV meanP.16 mmHgPV Vmax: 1.05 m/sPV | | Vmean: 0.69 m/sPV VTI: 18.39 cmTR maxP.59 mmHgTR Vmax: 1.84 m/sTV A Darrell: | | 0.53 m/sTV Dec Hooker: 3.06 m/s2TV Dec Time: 141.74 msTV E Darrell: 0.43 m/sTV E/A | | Ratio: 0.80 Ultrasound Technologist: MIKAuthenticated by: Lawrence Ortiz MD, FACC, FACP, | | FASNCReport Date/Time: [id number] IMPRESSION: 1. Overall left ventricular | | systolic function is normal with, an EF between 65 - 70 %.2. There is mild concentric | | left ventricular hypertrophy.3. The diastolic filling pattern indicates impaired | | relaxation consistent with mild dysfunction (Grade I), which is normal for the patient's | | age.4. There is mild aortic stenosis present. | |ESV(Teich): 25.66 ml | |IVSs: 1.18 cm | |LVIDs: 2.64 cm | |LVPWs: 1.16 cm | |SV(Teich): 48.76 ml | |RA Major: 4.05 cm | |RVIDd: 3.04 cm | |LVEF MOD A2C: 66.95 % | |SV MOD A2C: 56.22 ml | |LVEF MOD A4C: 63.77 % | |SV MOD A4C: 51.06 ml | |EF Biplane: 65.35 % | |LVEDV MOD BP: 82.34 ml | |LVESV MOD BP: 28.52 ml | |LVEDV MOD A2C: 83.98 ml | |LVLd A2C: 6.82 cm | |LVEDV MOD A4C: 80.06 ml | |LVLd A4C: 6.74 cm | |LVESV MOD A2C: 27.75 ml | |LVLs A2C: 5.34 cm | |LVESV MOD A4C: 28.99 ml | |LVLs A4C: 5.20 cm | |CO Biplane: 4.15 l/min | |HR: 77.28 BPM | |R-R: 776.34 ms | |LAESV(A-L): 35.19 ml | |LAESV Index (A-L): 17.95 ml/m2 | |LAAs A2C: 13.96 cm2 | |LAESV A-L A2C: 33.02 ml | |LALs A2C: 5.01 cm | |LAAs A4C: 13.50 cm2 | |LAESV A-L A4C: 34.03 ml | |LALs A4C: 4.54 cm | |%FS: 45.07 % | |EDV(Teich): 82.16 ml | |EF(Teich): 76.69 % | |ESV(Teich): 19.14 ml | |IVSd: 1.08 cm | |IVSs: 1.80 cm | |LVIDd: 4.28 cm | |LVIDs: 2.35 cm | |LVPWd: 1.26 cm | |LVPWs: 1.44 cm | |SV(Teich): 63.01 ml | |D-E Excursion: 1.62 cm | |E-F Hooker: 0.04 m/s | |EPSS: 0.48 cm | |IVC diameter: 1.95 cm | |IVC collapse: 1.02 cm | |IVC % collapse: 45.86 % | |HR: 77.28 BPM | |AV maxP.15 mmHg | |AV meanP.15 mmHg | |AV Vmax: 2.07 m/s | |AV Vmean: 1.68 m/s | |AV VTI: 44.75 cm | |BARI Vmax: 1.46 cm2 | |BARI (VTI): 1.35 cm2 | |LVCI Dopp: 2.72 l/minm2 | |LVCO Dopp: 5.34 l/min | |HR: 87.96 BPM | |LVOT maxP.87 mmHg | |LVOT meanP.40 mmHg | |LVSI Dopp: 31.02 ml/m2 | |LVSV Dopp: 60.80 ml | |LVOT Vmax: 0.98 m/s | |LVOT Vmean: 0.74 m/s | |LVOT VTI: 19.75 cm | |MCO: 487.98 ms | |MV A Darrell: 1.00 m/s | |MV DecT: 203.72 ms | |MV E Darrell: 0.84 m/s | |MV E/A Ratio: 0.84 | |MV PHT: 61.74 ms | |MVA By PHT: 3.56 cm2 | |MV A Dur: 99.81 ms | |Septal e': 0.05 m/s | |Septal E/e': 14.29 | |Lateral e': 0.05 m/s | |Lateral E/e': 14.29 | |P Vein A: 0.30 m/s | |P Vein A Dur: 94.26 ms | |P Vein D: 0.33 m/s | |P Vein S/D Ratio: 1.66 | |P Vein S: 0.54 m/s | |HR: 78.40 BPM | |PV maxP.47 mmHg | |PV meanP.16 mmHg | |PV Vmax: 1.05 m/s | |PV Vmean: 0.69 m/s | |PV VTI: 18.39 cm | |TR maxP.59 mmHg | |TR Vmax: 1.84 m/s | |TV A Darrell: 0.53 m/s | |TV Dec Hooker: 3.06 m/s2 | |TV Dec Time: 141.74 ms | |TV E Darrell: 0.43 m/s | |TV E/A Ratio: 0.80 | | | |Ultrasound Technologist: LUDY | |Authenticated by: Lawrence Ortiz MD, FACC, FACP, [facility] | |Report Date/Time: -- [id number] | | | |IMPRESSION: | |1. Overall left ventricular systolic function is normal with, an EF between 65 - 70 %. | |2. There is mild concentric left ventricular hypertrophy. | |3. The diastolic filling pattern indicates impaired relaxation consistent with mild dysfunc tion (Grade I), which is normal for the patient's age. | |4. There is mild aortic stenosis present. | + + ECG 12 lead (12/09/2014 6:09 AM PDT) + + + + + + | Component | Value | Ref Range | Performed | Pathologist | | | | | At | Signature | + + + + + + | DIAGNOSIS: | Normal sinus | | EXTERNAL | | | | rhythmInferior infarct | | LAB | | | | (cited on or before | | | | | | 07-OCT-2010)Nonspecific | | | | | | ST and/or T wave | | | | | | abnormalitiesAbnormal | | | | | | ECGWhen compared with | | | | | | ECG of 08-DEC-2014 | | | | | | 22:26,No significant | | | | | | change was | | | | | | foundConfirmed by DES | | | | | | PENELOPE ([id number]) on 12/09/2014 | | | | | | 1:31:33 PM | | | | + + + + + + + + | Specimen | + + | | + + + + + | Narrative | Performed At | + + + | Historically converted procedure from [facility] environment | EXTERNAL LAB | + + + + +---------+ + + | Performing | Address | City/State/Zipcode | Phone Number | | Organization | | | | + +---------+ + + | EXTERNAL LAB | | | | + +---------+ + + CK-MARY (12/09/2014 4:15 AM PDT) + + + + + -+ | Component | Value | Ref Range | Performed | Pathologist | | | | | At | Signature | + + + + + -+ | CK-MB | 0.6Comment: Testing | 0.5 - 3.6 ng/mL | EXTERNAL | | | | performed at [facility] [place];[address] | | LAB | | | | [facility];[place], [place] | | | | | | [address] | | | | + + + + + -+ | CK-MB Index | 1.1Comment: CK INDEX | | EXTERNAL | | | | INTERPRETATION: | | LAB | | | | MMB ng/mL | | | | | | | | | | | |CK INDEX INTERPRETATION: | | | | | | MMB ng/mL | | | | | | | | | | + + + + + -+ + + | Specimen | + + | | + + + +---------+ + + | Performing | Address | City/State/Zipcode | Phone Number | | Organization | | | | + +---------+ + + | EXTERNAL LAB | | | | + +---------+ + + Troponin I (12/09/2014 4:15 AM PDT) + + + + + + | Component | Value | Ref Range | Performed | Pathologist | | | | | At | Signature | + + + + + + | Troponin I, | <0.020Comment: 0.00 to | 0.00 - 0.10 | EXTERNAL | | | Qual | 0.10 CONSISTENT WITH | ng/mL | LAB | | | | NORMAL POPULATION0.11 | | | | | | to 0.60 CONSISTENT | | | | | | WITH INCREASED RISK FOR | | | | | | ADVERSE OUTCOMES> 0.60 | | | | | | CONSISTENT | | | | | | WITH WHO CRITERIA FOR | | | | | | ACUTE VT Testing | | | | | | performed at [facility] [place];[address] | | | | | | [facility];[place], [place] | | | | | | [address] | | | | + + + + + + + + | Specimen | + + | Blood specimen | | (specimen) | + + + +---------+ + + | Performing | Address | City/State/Zipcode | Phone Number | | Organization | | | | + +---------+ + + | EXTERNAL LAB | | | | + +---------+ + + External Lab: ELYSE (12/09/2014 4:15 AM PDT) + + + + + + | Component | Value | Ref Range | Performed | Pathologist | | | | | At | Signature | + + + + + + | WBC | 7.55Comment: Testing | 3.80 - 11.00 | EXTERNAL | | | | performed at [facility], [address] | K/uL | LAB | | | | [place], | | | | | | [place] [address] | | | | + + + + + + | Non- | 4.39Comment: Testing | 3.70 - 5.10 | EXTERNAL | | | Red Blood | performed at [facility], [address] | M/uL | LAB | | | Cells | [place], | | | | | Counted | [place] [address] | | | | + + + + + + | Hemoglobin | 14.3Comment: Testing | 11.3 - 15.5 | EXTERNAL | | | | performed at [facility], [address] | g/dL | LAB | | | | [place], | | | | | | [place] [address] | | | | + + + + + + | Hematocrit, | 43.1Comment: Testing | 34.0 - 46.0 % | EXTERNAL | | | POC | performed at [facility], [address] | | LAB | | | | [address], | | | | | | [place] [address] | | | | + + + + + + | MCV | 98.2Comment: Testing | 80.0 - 100.0 fl | EXTERNAL | | | | performed at [facility], [address] | | LAB | | | | [address], | | | | | | [place] [address] | | | | + + + + + + | MCH | 32.7Comment: Testing | 27.0 - 34.0 pg | EXTERNAL | | | | performed at [facility], [address] | | LAB | | | | [place], | | | | | | [place] [address] | | | | + + + + + + | MCHC | 33.3Comment: Testing | 32.0 - 35.5 | EXTERNAL | | | | performed at [facility], [address] | g/dL | LAB | | | | [address], | | | | | | [place] [address] | | | | + + + + + + | RDW-CV | 44.2Comment: Testing | 37 - 53 fl | EXTERNAL | | | | performed at [facility], [address] | | LAB | | | | [address], | | | | | | [place] [address] | | | | + + + + + + | Platelet | 251Comment: Testing | 150 - 400 K/uL | EXTERNAL | | | Count | performed at [facility], [address] | | LAB | | | Plasma | [address], | | | | | | [place] [address] | | | | + + + + + + | MPV | 9.0Comment: Testing | fl | EXTERNAL | | | | performed at [facility], [address] | | LAB | | | | [address], | | | | | | [place] [address] | | | | + + + + + + | Differentia | AUTOMATEDComment: | | EXTERNAL | | | l Type | Testing performed at | | LAB | | | | [facility], [address] | | | | | | [place] | | | | | | [address] | | | | + + + + + + | % Segmented | 54.12Comment: Testing | % | EXTERNAL | | | | performed at [facility], [address] | | LAB | | | Neutrophils | [address], | | | | | | [place] [address] | | | | + + + + + + | % | 27.06Comment: Testing | % | EXTERNAL | | | Lymphocytes | performed at [facility], [address] | | LAB | | | | [address], | | | | | | [place] [address] | | | | + + + + + + | % Monocytes | 11.70Comment: Testing | % | EXTERNAL | | | | performed at [facility], [address] | | LAB | | | | [address], | | | | | | [place] [address] | | | | + + + + + + | % | 6.04Comment: Testing | % | EXTERNAL | | | Eosinophils | performed at [facility], [address] | | LAB | | | | [address], | | | | | | [place] [address] | | | | + + + + + + | % Basophils | 1.08Comment: Testing | % | EXTERNAL | | | | performed at [facility], [address] | LAB | | | | [address], | | | | | | [place] [address] | | | | + + + + + + | Absolute | 4.09Comment: Testing | 1.90 - 7.40 | EXTERNAL | | | Segmented | performed at [facility], [address] | K/uL | LAB | | | Neutrophils | [address], | | | | | | [place] [address] | | | | + + + + + + | Absolute | 2.04Comment: Testing | 1.00 - 3.90 | EXTERNAL | | | Lymphocytes | performed at [facility], [address] | K/uL | LAB | | | | [address], | | | | | | [place] [address] | | | | + + + + + + | Absolute | 0.88 (H)Comment: Testing | 0.00 - 0.80 | EXTERNAL | | | Monocytes | performed at [facility], [address] | LAB | | | | [address], | | | | | | [place] [address] | | | | + + + + + + | Absolute | 0.46Comment: Testing | 0.00 - 0.50 | EXTERNAL | | | Eosinophils | performed at [facility], [address] | K/u[address] | LAB | | | | [address], | | | | | | [place] [address] | | | | + + + + + + | Absolute | 0.08Comment: Testing | 0.00 - 0.10 | EXTERNAL | | | Basophils | performed at [facility], [address] | LAB | | | | [address], | | | | | | [place] [address] | | | | + + + + + + + + | Specimen | + + | Blood specimen | | (specimen) | + + + +---------+ + + | Performing | Address | City/State/Zipcode | Phone Number | | Organization | | | | + +---------+ + + | EXTERNAL LAB | | | | + +---------+ + + TSH (12/09/2014 4:15 AM PDT) + + + + + + | Component | Value | Ref Range | Performed | Pathologist | | | | | At | Signature | + + + + + + | TSH | 5.58 (H)Comment: Testing | 0.45 - 5.10 | EXTERNAL | | | | performed at [facility], [address] | [address] | LAB | | | | [address], | | | | | | [place] [address] | | | | + + + + + + + + | Specimen | + + | | + + + +---------+ + + | Performing | Address | City/State/Zipcode | Phone Number | | Organization | | | | + +---------+ + + | EXTERNAL LAB | | | | + +---------+ + + Phosphorus (12/09/2014 4:15 AM PDT) + + + + + + | Component | Value | Ref Range | Performed | Pathologist | | | | | At | Signature | + + + + + + | PHOSPHORUS | 4.2Comment: Testing | 2.3 - 4.8 mg/dL | EXTERNAL | | | | performed at [facility], [address] | | LAB | | | | [address], | | | | | | [place] [address] | | | | + + + + + + + + | Specimen | + + | Blood specimen | | (specimen) | + + + +---------+ + + | Performing | Address | City/State/Zipcode | Phone Number | | Organization | | | | + +---------+ + + | EXTERNAL LAB | | | | + +---------+ + + Magnesium (12/09/2014 4:15 AM PDT) + + + + + + | Component | Value | Ref Range | Performed | Pathologist | | | | | At | Signature | + + + + + + | Magnesium | 2.1Comment: Testing | 1.7 - 2.4 mg/dL | EXTERNAL | | | | performed at [facility], [address] | | LAB | | | | [facility], | | | | | | [place] [address] | | | | + + + + + + + + | Specimen | + + | Blood specimen | | (specimen) | + + + +---------+ + + | Performing | Address | City/State/Zipcode | Phone Number | | Organization | | | | + +---------+ + + | EXTERNAL LAB | | | | + +---------+ + + CK Total (12/09/2014 4:15 AM PDT) + + + + + + | Component | Value | Ref Range | Performed | Pathologist | | | | | At | Signature | + + + + + + | CK, Total | 53Comment: Testing | 30 - 240 U/L | EXTERNAL | | | | performed at [facility];[address] | | LAB | | | | [address];[place] | | | | | | [address] | | | | + + + + + + + + | Specimen | + + | Blood specimen | | (specimen) | + + + +---------+ + + | Performing | Address | City/State/Zipcode | Phone Number | | Organization | | | | + +---------+ + + | EXTERNAL LAB | | | | + +---------+ + + Lipid Panel (12/09/2014 4:15 AM PDT) + + + + + + | Component | Value | Ref Range | Performed | Pathologist | | | | | At | Signature | + + + + + + | Cholesterol | 196Comment: Testing | mg/dL | EXTERNAL | | | | performed at [facility], [address] | | LAB | | | | [address], | | | | | | [place], [place] [address] | | | | + + + + + + | Triglycerid | 174 (H)Comment: Testing | mg/dL | EXTERNAL | | | es | performed at [facility], [address] | | LAB | | | | [address], | | | | | | [place], [place] [address] | | | | + + + + + + | HDL | 46Comment: Testing | mg/dL | EXTERNAL | | | | performed at [facility], [address] | | LAB | | | | [address], | | | | | | [place], [place] [address] | | | | + + + + + + | LDL, | 115 (H)Comment: Testing | mg/dL | EXTERNAL | | | Calculated | performed at [facility], [address] | | LAB | | | | [address], | | | | | | [place] [address] | | | | + + + + + + + + | Specimen | + + | Blood specimen | | (specimen) | + + + +---------+ + + | Performing | Address | City/State/Zipcode | Phone Number | | Organization | | | | + +---------+ + + | EXTERNAL LAB | | | | + +---------+ + + Comprehensive Metabolic Panel (12/09/2014 4:15 AM PDT) + + + + + + | Component | Value | Ref Range | Performed | Pathologist | | | | | At | Signature | + + + + + + | Na | 137Comment: Testing | 135 - 143 | EXTERNAL | | | | performed at [facility], [address] | mmol/L | LAB | | | | [address], | | | | | | [place] [address] | | | | + + + + + + | K | 3.8Comment: Testing | 3.5 - 4.9 | EXTERNAL | | | | performed at [facility], [address] | mmol/L | LAB | | | | [address], | | | | | | [place] [address] | | | | + + + + + + | Cl | 103Comment: Testing | 99 - 109 mmol/L | EXTERNAL | | | | performed at [facility], [address] | | LAB | | | | [address], | | | | | | [place] [address] | | | | + + + + + + | CO2 | 26Comment: Testing | 23 - 32 mmol/L | EXTERNAL | | | | performed at [facility], [address] | | LAB | | | | [address], | | | | | | [place] [address] | | | | + + + + + + | Anion Gap | 12Comment: Testing | 5 - 20 mmol/L | EXTERNAL | | | | performed at [facility], [address] | | LAB | | | | [address], | | | | | | [place] [address] | | | | + + + + + + | Glucose, | 134 (H)Comment: Testing | 65 - 99 mg/dL | EXTERNAL | | | Fasting | performed at [facility], [address] | | LAB | | | | [address], | | | | | | [place] [address] | | | | + + + + + + | BUN | 21Comment: Testing | 8 - 25 mg/dL | EXTERNAL | | | | performed at [facility], [address] | | LAB | | | | [address], | | | | | | [place] [address] | | | | + + + + + + | Creatinine | 0.72Comment: Testing | 0.50 - 1.00 | EXTERNAL | | | | performed at [facility], [address] | mg/dL | LAB | | | | [address], | | | | | | [place] [address] | | | | + + + + + + | BUN/Creatin | 29Comment: Testing | | EXTERNAL | | | ine Ratio | performed at [facility], [address] | | LAB | | | | [address], | | | | | | [place] [address] | | | | + + + + + + | Calcium | 9.0Comment: Testing | 8.5 - 10.5 | EXTERNAL | | | | performed at [facility], [address] | mg/dL | LAB | | | | [address], | | | | | | [place] [address] | | | | + + + + + + | Protein, | 6.2 (L)Comment: Testing | 6.3 - 8.2 g/dL | EXTERNAL | | | Total | performed at [facility], [address] | | LAB | | | | [address], | | | | | | [place] [address] | | | | + + + + + + | Albumin | 3.6Comment: Testing | 3.3 - 4.8 g/dL | EXTERNAL | | | | performed at [facility], [address] | | LAB | | | | [address], | | | | | | [place] [address] | | | | + + + + + + | Globulin | 2.6Comment: Testing | 1.3 - 4.9 g/dL | EXTERNAL | | | | performed at [facility], [address] | | LAB | | | | [place] [address], | | | | | | [place] [address] | | | | + + + + + + | A/G Ratio | 1.4Comment: Testing | 1.0 - 2.4 | EXTERNAL | | | | performed at [facility], [address] | | LAB | | | | [address] [facility], | | | | | | [place] [address] | | | | + + + + + + | Bilirubin | 0.6Comment: Testing | 0.1 - 1.5 mg/dL | EXTERNAL | | | Total | performed at [facility], [address] | | LAB | | | | [address], | | | | | | [place] [address] | | | | + + + + + + | ALP, | 106Comment: Testing | 35 - 115 U/L | EXTERNAL | | | External | performed at [facility], [address] | | LAB | | | | [address], | | | | | | [place] [address] | | | | + + + + + + | AST | 43Comment: Testing | 10 - 45 U/L | EXTERNAL | | | | performed at [facility], [address] | | LAB | | | | [address], | | | | | | [place] [address] | | | | + + + + + + | ALT | 42Comment: Testing | 10 - 65 U/L | EXTERNAL | | | | performed at [facility], [address] | | LAB | | | | [place] [address], | | | | | | [place] [address] | | | | + + + + + + | Estimated | >60Comment: GFR <60: | mL/min/1.73m2 | EXTERNAL | | | GFR | CHRONIC KIDNEY DISEASE, | | LAB | | | | IF FOUND OVER A 3 MONTH | | | | | | PERIOD.GFR <15: KIDNEY | | | | | | FAILURE.FOR | | | | | | AMERICANS, MULTIPLY THE | | | | | | CALCULATED GFR BY | | | | | | 1.210.Testing performed | | | | | | at [facility], [address] | | | | | | [address], | | | | | | [place] [address] | | | | + + + + + + + + | Specimen | + + | Blood specimen | | (specimen) | + + + +---------+ + + | Performing | Address | City/State/Zipcode | Phone Number | | Organization | | | | + +---------+ + + | EXTERNAL LAB | | | | + +---------+ + + D-Dimer (12/08/2014 11:25 PM PDT) + + + + + + | Component | Value | Ref Range | Performed | Pathologist | | | | | At | Signature | + + + + + + | D-DIMER, | 0.39Comment: D Dimer | 0.19 - 0.50 | EXTERNAL | | | MANUAL | results less than 0.50 | mg/L FEU | LAB | | | | mg/L FEU may rule out | | | | | | DVT and PE. However, | | | | | | all laboratory results | | | | | | should be interpreted in | | | | | | the context of all | | | | | | available clinical, | | | | | | radiologic and | | | | | | laboratory | | | | | | information.Testing | | | | | | performed at [facility];[address] | | | | | | [facility];[place], [place] | | | | | | [address] | | | | + + + + + + + + | Specimen | + + | Blood specimen | | (specimen) | + + + +---------+ + + | Performing | Address | City/State/Zipcode | Phone Number | | Organization | | | | + +---------+ + + | EXTERNAL LAB | | | | + +---------+ + + ECG 12 lead (12/08/2014 10:26 PM PDT) + + + + + + | Component | Value | Ref Range | Performed | Pathologist | | | | | At | Signature | + + + + + + | DIAGNOSIS: | Normal sinus rhythmLeft | | EXTERNAL | | | | axis deviationInferior | | LAB | | | | infarct (cited on or | | | | | | before | | | | | | 07-OCT-2010)Abnormal | | | | | | ECGWhen compared with | | | | | | ECG of 07-OCT-2010 | | | | | | 11:55,Questionable | | | | | | change in initial forces | | | | | | of Inferior leadsT wave | | | | | | inversion no longer | | | | | | evident in Inferior | | | | | | leadsT wave inversion | | | | | | now evident in Lateral | | | | | | leadsThis ECG contains | | | | | | Unconfirmed | | | | | | Interpretation | | | | | | Statements. See ED | | | | | | Record for Physician | | | | | | Interpretation. | | | | | | Confirmed by MUSE READ | | | | | | ONLY, -COMPUTER ([id number]), | | | | | | video editor Bruna Torre | | | | | | (25) on 12/09/2014 | | | | | | 1:40:05 AM | | | | + + + + + + + + | Specimen | + + | | + + + + + | Narrative | Performed At | + + + | Historically converted procedure from [facility] Epic environment | EXTERNAL LAB | + + + + +---------+ + + | Performing | Address | City/State/Zipcode | Phone Number | | Organization | | | | + +---------+ + + | EXTERNAL LAB | | | | + +---------+ + + documented in this encounter Visit Diagnoses + + | Diagnosis | + + | Chest pain Chest pain, unspecified | + + documented in this encounter
--- OUTSIDE RECORDS SUMMARY | ~2020-03-05 | XMS | Encounter Summary ---
Demographics + + + | Address | [address] | | | [place] [address] | + + + | Home Phone | | + + + | Preferred Language | Unknown | + + + | Marital Status | | + + + | Sabianism Affiliation | 1041 | + + + | Race | Unknown | + + + | Ethnic Group | Unknown | + + + Author + + + | Author | [facility] | | | and [place] | + + + | Organization | [facility] | | [...] [place], [place] | | | | | [address] | | + + + + + | Mercedes Lemus | ECON | [place] | | | | | [address] | | + + + + + Care Team Providers + +------+ + | Care Power Distributor Name | Role | Phone | + +------+ + | Hector Mccoy DO | PCP | | + +------+ + Reason for Visit +--------+--------+ + | Reason | Onset | Comments | | | Date | | +--------+--------+ + | Other | 05/14/ | One year post operative update | | | 2012 | | +--------+--------+ + Encounter Details +--------+ + + + + | Date | Type | Department | Care Team | Description | +--------+ + + + + | 05/14/ | Telephone | [facility] [place] | Jose Juan Bo | Other (One year post | | 2012 | | NEUROSURGERY [address] | [facility] [address] | operative update ) | | | | [address] | [address] [place] | | | | | [place] | [address] | | | | | [address] | [phone] | | | | | [phone] | | | +--------+ + + + [...] + + documented as of this encounter Miscellaneous Notes Telephone Encounter - Bonny Decker CMA - 05/14/2013 2:55 PM Babs called back stati ng she is feeling well. She will be having X-rays done for review at [facility] Bonny elephone Encount er - Bonny Decker CMA - 05/14/2013 11:17 AM PDTLeft message requesting a call back to get one year post op update and have patient proceed with x-rays for review. Bonny documented in thi s encounter Plan of Treatment Not on filedocumented as of this encounter Visit Diagnoses Not on filedocumented in this encounter"
--- OUTSIDE RECORDS SUMMARY | ~2020-03-05 | XMS | Encounter Summary ---
Demographics + + + | Address | [address] | | | [place] [address] | + + + | Home Phone | | + + + | Preferred Language | Unknown | + + + | Marital Status | | + + + | Mormonism Affiliation | 1041 | + + + | Race | Unknown | + + + | Ethnic Group | Unknown | + + + Author + + + | Author | [facility] | | | and [place] | + + + | Organization | [facility] | | | [...] [place], [place] | | | | | [address] | | + + + + + | Mercedes Lemus | ECON | [place] | | | | | [address] | | + + + + + Care Team Providers + +------+ + | Care Pc Tech Name | Role | Phone | + +------+ + | Hector Mccoy DO | PCP | | + +------+ + Reason for Visit + + + | Reason | Comments | + + + | Back Pain | Low back pain | + + + Encounter Details +--------+---------+ + + + | Date | Type | Department | Care Team | Description | +--------+---------+ + + + | 08/31/ | Office | [facility] | Cecilio Ram | Lumbar radiculopathy | | 2018 | Visit | PHYSIATRY [address] | MD Diana [address] | (Primary Dx); | | | | [address] | [place], [place] | Spinal stenosis of | | | | [place], [place] | [address] | lumbar region with | | | | [address] | | radiculopathy; S/P | | | | [phone] | | lumbar fusion; | | | | | | Osteoarthritis of | | | | | | spine with | | | | | | radiculopathy, | | | | | | lumbar region | +--------+---------+ + + + Social History [...] + + + | Blood Pressure | 146/82 | 08/31/2017 9:45 AM | | | | | PST | | + + + + + | Pulse | 73 | 08/31/2017 9:45 AM | | | | | PST [...] Weight | 87.1 kg (192 lb) | 08/31/2017 9:45 AM | | | | | PST | | + + + + + | Height | 162.6 cm (5' 4") | 08/31/2017 9:45 AM | | | | | PST | | + + + + + | Body Mass Index | 32.96 | 08/31/2017 9:45 AM | | | | | PST | | + + + + + documented in this encounter Patient Instructions Patient Instructions Marina Cassidy, OMARI - 08/31/2017 9:30 AM PST Follow-up at the hospital thirty minutes before [...] of the procedure you must provide a delivery driver to take you home. For all procedur es it is recommended that someone else drive you home. documented in this encounter Progress Notes Cecilio Ram MD - 08/31/2017 9:30 AM PST Cecilio Ram MD [address], [address] [place] [address] FAX: PHYSICAL MEDICINE AND REHABILITATION H&P CHIEF COMPLAINT: Chief Complaint Patient presents with Back Pain Low back pain HISTORY OF PRESENT ILLNESS: The patient is a 77 y.o. female being seen today in follow up for the complaint of low back pain that began in 1984 when the patient reports that she was jumping into a pool and twisted wrong. When she jumped in she noticed immediate pain. The s ymptoms have been gradually worsening. The patient has a history of a prior lumbar fusion a t L4-L5, L5-S1 which was performed by Dr. Jose Juan Simmons on May 082011. At the patient's last visit I recommended a trial of a left L4-L5 transforaminal epidural steroid injection which was performed by me on 04/05/2017. The patient is here today to discuss the r esults of the injection with me today. She reports that she had 100% relief of her symptoms on the left side with this procedure. The left leg symptoms are just starting to come back. Unfortunately the day after the procedure she had a fall onto her right side. Today she is complaining of pain in the back and legs bilaterally but more pain on the right side at thi s time. She rates the pain as moderate. The symptoms are continuous. She describes the pain as ac bruna, sharp and throbbing. The patient describes leg symptoms that occur on the left side. The leg symptoms account f or greater than or equal to 40% of her symptoms. The leg symptoms are persistent and the sy mptoms travel from the [facility] back to below the knee. The patient does report numbness in the left leg. She does report weakness of the left leg. The patient does not report any change in bowel or bladder function or saddle anesthesia re cently. Her symptoms improve with rest. Improvement with prior injection. Her symptoms worsen with standing,walking for long distances and prolonged sitting. She has tried PT, NSAIDS and Braces. The patient had prior lumbar surgery with Dr. Jose Juan Bo as noted above in HPI. She also had the prior left L4-L5 transforaminal epidural steroid injection which was performed by me on 04/05/2017 as noted above in HPI. CURRENT MEDICATIONS: Current Outpatient Prescriptions Medication Sig Dispense Refill Cholecalciferol (VITAMIN D-[address] PO) Take 1 tablet by mouth Daily. Coenzyme Q10 (COQ10) 100 MG CAPS Take 1 capsule by mouth Daily. cyclobenzaprine (FLEXERIL) 5 MG tablet Take 5 [...] no rheumatoid arthritis. PHYSICAL EXAMINATION: Blood pressure 146/82, pulse 73, height 1.626 m (5' 4"), weight 87.1 [...] has no apparent deficits with short or long term care phlebotomist memory. She has appropriate fund of knowledge Cranial nerves 2-12 appear grossly intact. Sensory exam does not show diminished sensation to light touch in the upper and lower extre mities. REFLEX: RIGHT LEFT PATELLAR 1+ 1+ ACHILLES 1+ 1+ PLANTAR Downgoing Downgoing MUSCULOSKELETAL There is no major palpable deformity of the spine. Straight leg raise and slump-sit are positive bilaterally. Edy's maneuver and impingem ent testing were [...] of the lumbar fusion from L4-S1 and fairly severe centr al canal stenosis above that at L3-L4. IMPRESSION: Encounter Diagnoses Name Primary? Lumbar radiculopathy Yes Spinal stenosis of lumbar region with radiculopathy S/P lumbar fusion Osteoarthritis of spine with radiculopathy, lumbar region PLAN: 1. That patient was advised that I am not surprised that she is unfortunately having pain bilaterally at this time given the stenosis seen on her imaging. She had good relief with th e prior injection and wonders if she may be a candidate for additional injections. Because she is now having bilateral leg symptoms I did offer bilateral L4-L5 transforaminal epidural steroid injections as the next step. She would like to proceed with this. The patient will be scheduled for this procedure in the near future. 2. The patient has several medications for pain already. I did not make any changes in he r medications today. I, Dr. Cecilio Ram, personally performed the services described in this documentatio n, as scribed by SANCHEZ Suarez in my presence, and it is both accurate and complete. ELECTRONICALLY EDITED AND SIGNED BY: Cecilio Ram MD, 09/02/2017 documented in this encounter Plan of Treatment Not on filedocumented as of this encounter Results FL ELOISA Lumbar Transforaminal (08/31/2017 2:34 PM PST) + + | Specimen | + + | | + + + + -+ | Narrative | Performed At | + + -+ | 08/31/2017 | [facility] | | Bilateral Transforaminal Epidural Steroid Injections Diagnosis: Lumbar | | | radiculopathy ICD-10 Code M54.16 Mary Collado presents to the | | | fluoroscopy suite for fluoroscopically-guided bilateral L4-L5 | | | transforaminal epidural steroid injections as part of conservative | | | management for chronic pain with lumbar radiculopathy and degenerative | | | disc disease. After informed consent was obtained, the patient lay in | | | the prone position on the fluoroscopy table. The areas were | | | identified under fluoroscopic guidance. The areas were prepped and | | | draped in sterile fashion. A 25-gauge, 1.5-inch needle was inserted | | | into each region and approximately 3 mL of buffered 1% lidocaine was | | | infused. Then, a 22-gauge spinal needle was inserted into the | | | posterior superior transforaminal space bilaterally and advanced into | | | the epidural space under fluoroscopic guidance. Confirmation into the | | | epidural space was obtained with infusion of approximately 1 mL of | | | Omnipaque contrast which showed epidural flow as well as nerve sheath | | | flow. Then, a combination of 2 mL of 1% lidocaine and 1.5 mL of 10 | | | mg/mL dexamethasone was infused, divided between the two sides. The | | | patient tolerated the procedure well without complications. Pre- [...] | | Local 1% Lidocaine | | |visible, agreement on the procedure [...] | | unspecified | + + | Spinal stenosis of lumbar region with radiculopathy Spinal stenosis, lumbar region, | | without neurogenic claudication | + + | S/P lumbar fusion Arthrodesis status | + + | Osteoarthritis of spine with radiculopathy, lumbar region | + + documented in this encounter
--- OUTSIDE RECORDS SUMMARY | ~2020-03-05 | XMS | Encounter Summary ---
Demographics + + + | Address | [address] | | | [place] [address] | + + + | Home Phone | | + + + | Preferred Language | Unknown | + + + | Marital Status | | + + + | Mormon Affiliation | 1041 | + + + | Race | Unknown | + + + | Ethnic Group | Unknown | + + + Author + + + | Author | [facility] | | | and [place] | + + + | Organization | [facility] | | [...] [place], [place] | | | | | [address] | | + + + + + | Mercedes Lemus | ECON | [place] | | | | | [address] | | + + + + + Care Team Providers + +------+ + | Care Exceptional Student Education Aide Name | Role | Phone | + [...] | | | | | | | [address] | | | | | | | Phone: | | | | | | | [phone] | | | | | | | Fax: | | | | | | | [phone] | | +--------+ + + + + + + + | Scheduling Instructions | + + | PHYSICAL THERAPY: TEACH LUMBAR HYGIENE; SAFETY, ERGONOMICS, MECHANICS, POSTURE, & | | BALANCE FOR 1-2 VISITS. LIFTING LIMITS ARE FOLLOWS: MONTH 1: 5 POUNDS | | MONTH 2: 15-25 POUNDS MONTH 3: 25-30 POUNDS AFTER THAT TOLERATED PLEASE FAX | | RESULTS UPON COMPLETION TO [phone] | + + Reason for Visit + [...] [place] | | | | | | [address] | | | | | | [phone] | | | +--------+ + + + [...] was on Monday. She was taken to [facility] on 05/18/12, and was released that same [...] Performed At | + + + | [facility] | [place] | | Department [address] [place] | [facility] | | [ rep ct [address]] [ rep ct [facility] [place] | | st zip] Signed | - IMAGING | | | | | Patient Name: TREE COLLADO Physician: | | | [email or web address] : 1940 Age: 71 Sex: F Unit #: [id number] | | | Exam Date: 06/19/12 Location: [facility] | | | Report #: [id number] Page: | | | %(RAD)RES..mtdd.print.filter("pg") of %(RAD) | | | RES..mtdd.print.filter("tpg") | | | | | | Accession Number: [id number] | | | LUMBAR SPINE CLINICAL HISTORY: [...] Transcribed | | | Date/Time: 06/19/2012 15:31 Tractor Operator Battery: | | | <<Signature on File>> | | | | | | Johnathan Alford MD06/19/12 1720 <Electronically signed by | | | Johnathan Alford MD> Johnathan Alford MD 06/19/12 | | | 1519 Tractor Operator Battery: O2 [place] Oakmnhjdrxkcv21/27/12 1531 | | | Jose Juan Bo MD | | + + + + + + + + | Performing | Address | City/State/Zipcode | Phone Number | | Organization | | | | + + + + + | [facility] | [address] | [place] | [phone] | | [facility] | | [address] | | | - IMAGING | | | | + + + + + documented in this encounter Visit Diagnoses + + | Diagnosis | + + | Status post lumbar spinal fusion - Primary Arthrodesis status | + + documented in this encounter
--- OUTSIDE RECORDS SUMMARY | ~2020-03-05 | XMS | Encounter Summary ---
Demographics + + + | Address | [address] | | | [place] [address] | + + + | Home Phone | | + + + | Preferred Language | Unknown | + + + | Marital Status | | + + + | Buddhist Affiliation | 1041 | + + + [...] [place], [place] | | | | | [address] | | + + + + + | Mercedes Lemus | ECON | [place] | | | | | [address] | | + + + + + Care Team Providers + +------+ + | Care Medical Physicist Name | Role | Phone | + +------+ + | Martell Hilario NP | PCP | | + +------+ + Reason for Visit +--------+--------+ + | Reason | Onset | Comments | | | Date | | +--------+--------+ + | Other | 01/29/ | | | | 2020 | | +--------+--------+ + Encounter Details +--------+ + + + + | Date | Type | Department | Care Team | Description | +--------+ + + + + | 01/29/ | Telephone | [facility] | Keron Villeda, | Other | | 2019 | | PHYSIATRY [address] | PA-C [address] | | | | [address] | [facility] | | | | | [place], [place] | [place] [address] | | | | | [address] | [phone] | | | | | [phone] | | | +--------+ + + + [...] this encounter Miscellaneous Notes Telephone Encounter - Ellie Denny - 01/30/2020 2:04 PM Babs Collado calling to schedule repeat same day Injections, patient is scheduled on office visit caroline Cabrales at 145 pm and injection hold placed at 3pm please advise. documented in this encounter Plan of Treatment Not on filedocumented as of this encounter Visit Diagnoses Not on filedocumented in this encounter"
--- OUTSIDE RECORDS SUMMARY | ~2020-03-05 | XMS | Encounter Summary ---
Demographics + + + | Address | [address] | | | [place] [address] | + + + | Home Phone | | + + + | Preferred Language | Unknown | + + + | Marital Status | | + + + | Episcopal Affiliation | 1041 | + + + | Race | Unknown | + + + | Ethnic Group | Unknown | + + + Author + + + | Author | [facility] | | | and [place] | + + + | Organization | [facility] | | | [...] [place], [place] | | | | | [address] | | + + + + + | Mercedes Lemus | ECON | [place] | | | | | [address] | | + + + + + Care Team Providers + +------+ + | Care Spouting Installer Name | Role | Phone | + +------+ + | Martell Hilario NP | PCP | | + +------+ + Encounter Details +--------+ + + + + | Date | Type | Department | Care Team | Description | +--------+ + + + + | 10/01/ | Emergency | [facility] | Wilman Campbell, | Acute left-sided low | | 2019 | | MEDICAL CENTER | MD Baeza Rodriguez Blrohan | back pain without | | | | EMERGENCY CENTER | [place] [address] | sciatica | | | | [address] | [phone] | | | | | [place], [place] | | | | | | [address] | | | | | | [phone] | | | +--------+ + + + [...] documented as of this encounter ED Notes Wilman Campbell MD - 10/01/2018 1:09 AM PDTFormatting of this note might be different fr om the original. ED Provider Notes by Wilman Campbell MD at 10/01/18108 Author: Wilman Campbell MD Service: Emergency Department Author Type: Physician Filed: 10/01/18 0750 Date of Service: 10/01/18108 Status: Signed Embryology Professor: Wilman Campbell MD (Physician) [facility] Department of Emergency Medicine 1:09 AM 10/01/2018 History of Present Illness Patient Identification Mary Collado is a 78 y.o. female. Patient information was obtained from patient. History/Exam limitations: none. Patient presented to the Emergency Department by: Wheelchair (brought down in wheel chair f rom 7th floor from nurses) Chief Complaint Chief Complaint Patient presents with Back Pain this morning pt lost balance on the ice and caught herself on a truck with her hands, pt did not fall or hit her head, pt has acute pain for her chronic back pain from "a shit load of arthritis" that radiates down her right leg The patient presents to the emergency department with chief complaints of back pain. Onset of symptoms was yesterday, with a consistent course since that time. The symptoms are descri bed to be of moderate severity. The patient describes the quality and location of the sympto ms as the following: lower back pain that radiates down her right leg. Patient states she wa s walking to her car, when she slipped and twisted wrong. Patient denies falling today, ng roberto she reports she fell in her house two weeks ago and landed on her back. No care NURSES SUPERVISOR was reported. PCP: RON HARRIS Past Medical History Diagnosis Date Coronary artery disease Diabetes mellitus, type 2 (HCC) Hyperlipidemia Hypertension History reviewed. No pertinent surgical history. Prior to Admission medications Medication Sig Start Date End Date Taking? Authorizing Provider cyclobenzaprine (FLEXERIL) 10 MG tablet Take 10 mg by mouth 3 (three) times daily as needed for Muscle spasms. Yes Historical Provider HYDROcodone-acetaminophen (NORCO) 5-325 MG per tablet Take 1 tablet by mouth every 6 (six) hours as needed for Pain. Historical Provider oxyCODONE-acetaminophen (PERCOCET) 5-325 MG per tablet Take 1 tablet by mouth every 4 (four ) hours as needed for Pain. Historical Provider zolpidem (AMBIEN) 5 MG tablet Take 5 mg by mouth nightly as needed for Sleep. Historical Provider Allergies Allergen Reactions Dilaudid [Hydromorphone] GI Distress Social History Social History Marital status: Spouse name: N/A Number of children: N/A Years of education: N/A Occupational History Not on file. Social History Main Topics Smoking status: Never Smoker Smokeless tobacco: Never Used Alcohol use Yes Comment: socially Drug use: No Sexual activity: No Other Topics Concern Not on file Social History Narrative No narrative on file History reviewed. No pertinent family history. ROS Review of Systems Constitutional: Negative for: fever, chills or weight loss. HEENT: Negative for: head trauma, ear pain, sore throat or acute visual disturbance. Cardiovascular/Respiratory: Negative for: chest pain, syncope, shortness of breath or cough . Gastrointestinal: Negative for: abdominal pain, nausea, vomiting, diarrhea, or black or bl oody stools. Genitourinary: Negative for: dysuria or urinary problems. Musculoskeletal: Positive for: back pain Skin: Negative for: rash or lesions. Neuro: Negative for: headache, focal muscle weakness, seizure or acute neur ological problems. Physical Exam BP 190/82 (BP Location: Left upper arm) | Pulse 73 | Temp 97.7 F (36.5 C) (Oral) | R trey 17 | Wt 88.5 kg (195 lb) | SpO2 97% | BMI 33.47 kg/m Vitals Interpretation: Hypertensive, otherwise normal. Pulse Oximetry interpretation: Normal General: Alert, in no apparent distress Eyes: Normal inspection, pupils equal and round, non-icteric CVS: Rate and rhythm normal No murmurs, rubs or gallops Respiratory: Breath sounds normal bilaterally, no wheezing or crackles Abdomen: Soft, non-tender, non-distended No guarding or rebound Back: Lower lumbar tenderness, no step-off. Skin: Warm and dry No rash Musculoskeletal: Moves all extremities Neuro: No gross motosensory deficit Medical Decision Making and Emergency Department Course ED Department Course 1:14 AM. Patient presents with lower back pain. She states she twisted it on ice, however s he denies any fall. No numbness, no tingling, and no focal weakness. Has hx of lower chronic back pain. DDx includes strain, sprain, contusion. Unlikely fractures, however we will obtain an XR. 2:34 AM Imaging resulted showed no acute fracture 2:36 AM Pt reevaluation. Patient is stable at this time and reports improvement of her pain. Discus sed xray result The patient was clinically stable at discharge, no acute life or limb threatening condition noted. I have discussed s/s that would necessitate an immediate return visit to the ED. P t verbalized their understanding of the discharge instructions, and the need for outpatient follow up Vitals: 10/01/18 0054 10/01/18 0258 BP: 190/82 174/78 BP Location: Left upper arm Left upper arm Pulse: 73 69 Resp: 17 17 Temp: 97.7 F (36.5 C) TempSrc: Oral SpO2: 97% 96% Weight: 88.5 kg (195 lb) Medications oxyCODONE-acetaminophen (PERCOCET) 5-325 MG per tablet 2 tablet (2 tablets Oral Given 122) ketorolac (TORADOL) injection 30 mg (30 mg Intramuscular Given 10/01/18122) Records Reviewed Nursing notes. No previous [facility] ED visits available in [facility] for review. Labs & Radiology Results Laboratory Evaluation Results None Radiology and EKG Evaluation Imaging Results XR Lumbar Spine 3 View (Final result) Result time 10/01/18 02:28:49 Final result by Yg Rowe MD (10/01/18 02:28:49) Impression: No definite acute findings. Stable appearing postsurgical changes of a lumbosacral fusion from L4 through S1. Signed by: MD Soledad, Yg Sign Date/Time: 10/01/2018 2:25 AM Narrative: LUMBAR SPINE TWO VIEWS CLINICAL INFORMATION: Lower back pain after a fall. COMPARISON: [place] EPIDURAL STEROID INJECTION LUMBAR TRANSFORAMINAL (04/16/2018); [place] EPIDURAL STEROID INJECTION LUMBAR TRANSFORAMINAL (08/31/2017); [place] EPIDURAL STEROID INJECTION LUMBAR TRANSFORAMINAL (04/05/2017); MRI LUMBAR SPINE WO CONTRAST (10/25/2016); CT LUMBAR SPINE WO CONTRAST (05/26/2016); FINDINGS: Alignment: Stable subtle retrolisthesis of L1 on L2. Alignment otherwise normal. Vertebrae: Stable postsurgical changes of a lumbosacral fusion from L4 through S1. Hardware is stable in position with no evidence of hardware fracture or loosening. Intervertebral disc cages stable. No vertebral fractures. Diffuse mild spondylosis. Lumbar Disc Levels: Stable mild narrowing of the intervertebral disc spaces at L1-L2 and L2-L3. anterior fusions at L4-L5 and L5-S1. Facets and Posterior Spinal Elements: Grossly intact. Diagnosis & Disposition ED Diagnosis Final diagnosis Acute left-sided low back pain without sciatica Disposition: ED Disposition ED Disposition Condition Comment Discharge Stable Follow-up Information Follow up With Specialties Details Why Contact Info Ron Harris, DO Family Medicine Schedule an appointment as soon as possible for a visi [place] [address] [place] [address] [facility] Emergency Department Emergency Medicine If symptoms worsen [address] [place] [address] Discharge Medications: Discharge Medication List as of 10/01/2018 2:53 AM START taking these medications Details acetaminophen-codeine (TYLENOL #3) 300-30 MG per tablet Take 1 tablet by mouth every 6 (six ) hours as needed for Pain. Do not take Tylenol with this medication. It has Tylenol in it. , Starting 10/01/2018, Print Procedures Additional Documentation Procedures Attending Provider Note: IWilman MD personally performed the services described in this documentation, as scribed by Saritha Rayo in my presence, and it is both accurate an d complete. Chart Reviewed and Completed: 10/01/2018 7:50 AM Scribe: Alexis Kaplan, scribing for and in the presence of Wilman Campbell MD. Signed by: Aleixs Chairez 10/01/2018 2:38 AM Wilman Campbell MD 10/01/18 0750 onversion Transact ion, Provider Unknown - 10/01/2018 1:03 AM PDTFormatting of this note might be different fr om the original. ED Notes by Moira Juarez RN at 10/01/18102 Author: Moira Juarez RN Service: (none) Author Type: Registered Nurse Filed: 10/01/18103 Date of Service: 10/01/18102 Status: Signed Embryology Professor: Moira Juarez RN (Registered Nurse) Pt's spouse is currently admitted in room 7114. Pt requests to have a wheelchair upon disch arge up to her 's room. Moira Juarez RN 10/01/18103 docume nted in this encounter Plan of [...] sciatica | + + documented in this encounter
--- OUTSIDE RECORDS SUMMARY | ~2020-03-05 | XMS | Encounter Summary ---
Demographics + + + | Address | [address] | | | [place] [address] | + + + | Home Phone | | + + + | Preferred Language | Unknown | + + + | Marital Status | | + + + | Zoroastrian Affiliation | 1041 | + + + | Race | Unknown | + + + | Ethnic Group | Unknown | + + + Author + + + | Author | [facility] | | | and [place] | + + + | Organization | [facility] | | [...] [place], [place] | | | | | [address] | | + + + + + | Mercedes Lemus | ECON | [place] | | | | | [address] | | + + + + + Care Team Providers + +------+ + | Care Lip And Gate Builder Name | Role | Phone | + [...] + + | 06/20/ | Telephone | [facility] | Jose Juan Bo | Other (restrictions) | | 2011 | | NEUROSURGERY [address] | [address] | | | | | [address] | [address] [place] | | | | | [place] | [address] | | | | | [address] | [phone] | | | | | [phone] | | | +--------+ + + + [...]
--- OUTSIDE RECORDS SUMMARY | ~2020-03-05 | XMS | Encounter Summary ---
Demographics + + + | Address | [address] | | | [place] [address] | + + + | Home Phone | | + + + | Preferred Language | Unknown | + + + | Marital Status | | + + + | Yazidi Affiliation | 1041 | + + + | Race | Unknown | + + + | Ethnic Group | Unknown | + + + Author + + + | Author | [facility] | | | and [place] | + + + | Organization | [facility] | | [...] [place], [place] | | | | | [address] | | + + + + + | Mercedes Lemus | ECON | [place] | | | | | [address] | | + + + + + Care Team Providers + +------+ + | Care Hop Worker Name | Role | Phone | [...] + + | 08/03/ | Emergency | [facility] | Parker Arellano, | Cough (Primary Dx); | | 2019 | | MEDICAL CENTER | [address] | Rib pain on right | | | | EMERGENCY CENTER | [place] [address] | side | | | | [address] | [phone] | | | | | [place], [place] | | | | | | [address] | | | | | | [phone] | | | +--------+ + + + [...] through Care Everywhere.Chest Pain, Unc ertain Cause (Prydeinig)Cough, Chronic, Uncertain Cause (Adult) (Prydeinig)documented in this en counter Medications at Time [...] might be different fro m the original. [facility] Department of Emergency Medicine History of Present [...] ECTOPIC SURGERY 1973 KNEE SURGERY Left 11/21/2016 [facility] LUMBAR DISC SURGERY 2012 L4-S1 arthrodesis [...] file Gets together: Not on file Attends mosque service: Not on file Active member of [...] positive for chest pain, Resp: Negative for hsdixfitj-jn-gyhukh, positive for cough GI: Negative for abdominal [...] Value Ref Range Date/Time Urinalysis With Microscopic [[id number]] (Abnormal) Collected: 08/03/19 1148 Order Status: Completed Specimen: Urine, Clean Catch Updated: 08/03/19 1156 Color, UA YELLOW Clarity, UA CLEAR Specific [place], Urine 1.015 1.002 - 1.030 Leukocyte esterase, [...] NP. Specialty: Nurse Practitioner Contact information: [address] [place] [address] [facility]. Specialty: Emergency Medicine Why: If symptoms worsen Contact information: [address] [facility] [address] Discharge Medications: Dictation software, [employer], used which may contain error for similar sounding words even af ter review. Personal communication requested for any clarification. MD Parker Kahn MD 08/03/19 1401 documented in this en counter Plan of [...] U?MRN: | | | | | | [id number] | | | [id number] | | | riteri | | | [...] | | | St. | | | [place] | | | y | | | [...] | | | St | | | [place] | | | y | | | [...] St | | | | | | [place] | | | y | | | [...] | | | St. | | | [place] | | | y | | | [...] | | | St. | | | [place] | | | y H. | | [...] | | | St. | | | [place] | | | y H. | | [...] | | | St. | | | [place] | | | y H. | | [...] | | | St. | | | [place] | | | y H. | | [...] | | | St. | | | [place] | | | y H. | | [...] | | MARTELL | | | R, SUPERVISOR FORMING AND TEMPERING | | | Nurse | | | [...] | | | n | | | [place] | | | | | | Orthop [...] + + + + + | Clarity, | CLEAR | | [facility] | | | Urine | | | LABORATORY | | + + + + + + | Specific | 1.015 | 1.002 - 1.030 | [facility] | | | [place], | | | LABORATORY | | | [...] | | | Urine | performed at [facility];[address] | | LABORATORY | | | | [address];[place] | | | | | | [address] | | | | + + + [...] | + + + + + | [facility] | [address] | [place] [address] | [phone] | + + + + + documented [...]
--- OUTSIDE RECORDS SUMMARY | ~2020-03-05 | XMS | Encounter Summary ---
Demographics + + + | Address | [address] | | | [place] [address] | + + + | Home Phone | | + + + | Preferred Language | Unknown | + + + | Marital Status | | + + + | Hoahaoism Affiliation | 1041 | + + + | Race | Unknown | + + + | Ethnic Group | Unknown | + + + Author + + + | Author | [facility] | | | and [place] | + + + | Organization | [facility] | | | [...] [place], [place] | | | | | [address] | | + + + + + | Mercedes Lemus | ECON | [place] | | | | | [address] | | + + + + + Care Team Providers + +------+ + | Care Plumber Gasfitter Name | Role | Phone | + [...] | | | | | [place], [place] | [place] [address] | | | | | [address] | [phone] | | | | | [phone] | | | +--------+ + + + [...]
--- OUTSIDE RECORDS SUMMARY | ~2020-03-05 | XMS | Encounter Summary ---
Demographics + + + | Address | [address] | | | [place] [address] | + + + | Home Phone | | + + + | Preferred Language | Unknown | + + + | Marital Status | | + + + | Orthodox Affiliation | 1041 | + + + [...] [place], [place] | | | | | [address] | | + + + + + | Mercedes Lemus | ECON | [place] | | | | | [address] | | + + + + + Care Team Providers + +------+ + | Care Corporate Travel Counselor Name | Role | Phone | + +------+ + | Hector Mccoy DO | PCP | | + +------+ + Reason for Visit +--------+--------+ + | Reason | Onset | Comments | | | Date | | +--------+--------+ + | Other | 06/07/ | One year x-ray results | | | 2012 | | +--------+--------+ + Encounter Details +--------+ + + + + | Date | Type | Department | Care Team | Description | +--------+ + + + + | 06/07/ | Telephone | [facility] | Jose Juan Bo | Other (One year | | 2012 | | NEUROSURGERY [address] | MD [place] [address] [place] | x-ray results ) | | | | [address] [facility] [address] | [address] [place] | | | | | [place] | [address] | | | | | [address] | [phone] | | | | | [phone] | | | +--------+ + + + [...] this encounter Miscellaneous Notes Telephone Encounter - Jannette Decker, Master of Arts - 06/07/2013 9:12 AM HUMBERTO Cano, One year x-rays look great. Let patient know. JANNETTE DECKER documented in this encounter Plan of Treatment Not on filedocumented as of this encounter Visit Diagnoses Not on filedocumented in this encounter"
--- OUTSIDE RECORDS SUMMARY | ~2020-03-05 | XMS | Encounter Summary ---
Demographics + + + | Address | [address] | | | [place] [address] | + + + | Home Phone [...] + + | Author | [facility] | | | and [place] | + + + | Organization | [facility] | | [...] [place], [place] | | | | | [address] | | + + + + + | Mercedes Lemus | ECON | [place] | | | | | [address] | | + + + + + Care Team Providers + +------+ + | Care Ornamental Plasterer Helper Name | Role | Phone | [...] | | | [address] [place] | [place] [address] | | | | | [place] [address] | | | | | | [phone] | | | +--------+ + + + [...] for this | | | e | 12:05 AM | | procedure are in the | | | | PDT | | results section. | + +--------+ + + + documented in this encounter Results CT Head wo Contrast (03/21/2019 12:05 AM PDT) + + | Specimen | [...]
--- OUTSIDE RECORDS SUMMARY | ~2020-03-05 | XMS | Encounter Summary ---
Demographics + + + | Address | [address] | | | [place] [address] | + + + | Home Phone | | + + + | Preferred Language | Unknown | + + + | Marital Status | | + + + | Scientologist Affiliation | 1041 | + + + | Race | Unknown | + + + | Ethnic Group | Unknown | + + + Author + + + | Author | [facility] | | | and [place] | + + + | Organization | [facility] | | | and [...] [place], [place] | | | | | [address] | | + + + + + | Mercedes Lemus | ECON | [place] | | | | | [address] | | + + + + + Care Team Providers + +------+ + | Care Equity Trader Name | Role | Phone | + +------+ + | Hector Mccoy DO | PCP | | + +------+ + Reason for Visit + + + | Reason | Comments | + + + | Follow-up | 6 Month PO | + + + Encounter Details +--------+---------+ + + + | Date | Type | Department | Care Team | Description | +--------+---------+ + + + | 11/05/ | Office | [facility] | Jose Juan Bo | Status post lumbar | | 2012 | Visit | NEUROSURGERY [address] | F[address] | spinal fusion | | | | [address] | [place], [place] | (Primary Dx) | | | | [place] | [address] | | | | | [address] | [phone] | | | | [phone] | | | +--------+---------+ + + + Social History [...] + + + | Blood Pressure | 136/76 | 11/05/2012 10:45 AM | | | | | PDT | | + + + + + | Pulse | 77 | 11/05/2012 10:45 AM | | | | | PDT | | + + + + + | Temperature | - | - | | + + + + + | Respiratory Rate | 18 | 11/05/2012 10:45 AM | | | | | PDT | | + + + + + | Oxygen Saturation | - | - | | + + + + + | Inhaled Oxygen | - | - | | | Concentration | | | | + + + + + | Weight | 87.1 kg (192 lb) | 11/05/2012 10:45 AM | | | | | PDT | | + + + + + | Height | 162.6 cm (5' 4") | 11/05/2012 10:45 AM | | | | | PDT | | + + + + + | Body Mass Index | 32.96 | 11/05/2012 10:45 AM | | | | | PDT | | + + + + + documented in this encounter Patient Instructions Patient Instructions Pako Norman PA-C - 11/05/2012 11:38 AM PDTPlease continue to us e the bone growth stimulator! documented in this encounter Progress Notes Jose Juan Bo MD - 11/05/2012 10:42 AM PDTFormatting of this note might be differen t from the original. Jose Juan Bo MD [address] [facility], [address] [place] [id number] FAX: NEUROSURGERY FOLLOW-UP CHIEF COMPLAINT: Chief Complaint Patient presents with Follow-up 6 Month PO HISTORY OF PRESENT ILLNESS: The patient is a 72 y.o. female that had a L4-5, L5-S1 LAIF by Dr. Bo around 6 months ago. She returns and overall is doing well. The patient com plains of mild "old lady pains." She states she doing well, off of all pain medications and able to walk pain free. She is still using her bone growth stimulator. PAST MEDICAL HISTORY: Past Medical History Diagnosis Date Hypertension Hyperlipidemia Diabetes mellitus Arthritis PAST SURGICAL HISTORY: Past Surgical History Procedure Date Topical hip replacement 2002 Shoulder replacement bilaterally Miscarriages 1967, 1968, and 1977 Ectopic surgery 1972 Skin lesion resected CURRENT MEDICATIONS: Current Outpatient Prescriptions Medication Sig Dispense Refill Cholecalciferol (VITAMIN D3) 2000 UNITS CAPS Take 2,000 Units by mouth nightly. Hydrocodone-Acetaminophen (NORCO PO) Take by mouth. PARoxetine (PAXIL) 20 mg tablet Take 20 mg by mouth nightly. metFORMIN (GLUCOPHAGE) 500 mg tablet Take 500 mg by mouth daily (with breakfast). lovastatin (MEVACOR) 20 mg tablet Take 20 mg by mouth Daily (with dinner). lisinopril (PRINIVIL, ZESTRIL) 20 mg tablet Take 20 mg by mouth Daily. zolpidem (AMBIEN) 10 mg tablet Take 5 mg by mouth nightly as needed. cyclobenzaprine (FLEXERIL) 10 mg tablet Take 10 mg by mouth 3 times daily as needed. ALLERGIES: No Known Allergies SOCIAL HISTORY: The patient reports that she quit smoking about 23 years ago. She has never used smokeless tobacco. She reports that she drinks alcohol. She reports that she does not use illicit mohan gs. FAMILY HISTORY: History reviewed. No pertinent family history. INTERIM PHYSICAL EXAMINATION: Blood pressure 136/76, pulse 77, resp. rate 18, height 1.626 m (5' 4"), weight 87.091 kg (1 92 lb). Body mass index is 32.96 kg/(m^2). GENERAL: Tree Collado is in no acute distress with unlabored respirations. HEENT: HEAD/FACE: Normocephalic and atraumatic. There are no areas of recent trauma. CHEST: Clear to ausculation without crackles or wheeze. HEART: Regular rate and rhythm without murmurs. SPINE: The patient s incisions are healed well. EXTREMITIES: No lower extremity edema. NEUROLOGICAL EXAMINATION: MENTAL STATUS: The patient is awake, alert, and oriented. She follows simple and complex commands MOTOR EXAM: Motor strength is 5/5 in lower extremities, bilaterally. This is improved from the preoperative exam. SENSORY EXAM: The sensory examination improved from the preoperative exam. REFLEXES: Reflexes are unchanged from her preoperative history and physical. RADIOGRAPHIC REVIEW: The patient s postoperative x-rays show stable instrumentation and alignment and were rev iewed with the patient today during the visit. There has been increased arthrodesis since t he patient s last x-ray which was also reviewed for comparison. ASSESSMENT: S/P L4-5, L5-S1 LAIF: Encounter Diagnosis Name Primary? Status post lumbar spinal fusion Yes Past Medical History Diagnosis Date Hypertension Hyperlipidemia Diabetes mellitus Arthritis PLAN: Overall, the patient is doing well. She has no numbness, weakness or leg pain. She is sti ll using her bone growth stimulator. At this time we can stop that. I have increased the patient s activities further, and I would like the patient to contin ue to advance with activities as tolerated. It has been a pleasure caring for this patient to date and hope to see that the patient con tinues to improve over time and can take care of her back long-term. I greatly appreciate t his referral. I spent 20 minutes in visit with Tree Collado today with the majority of time spent cou nselling the patient on her recovery and coordinating her future care. The patient will follow-up with my clinic in around 6 months for her 1 year postoperative f ollow up visit. ELECTRONICALLY SIGNED BY: Jose Juan Bo MD, 11/05/2012 11:51 documented in this encounter Plan of Treatment + +---------+--------+ + + | Name | Type | Priori | Associated Diagnoses | Order Schedule | | | | ty | | | + +---------+--------+ + + | XR Lumbar Spine 2 or | Imaging | Routin | Status post lumbar | Expected: 05/04/2013 | | 3 Vw | | e | spinal fusion | (Approximate), | | | | | | Expires: 11/04/2013 | + +---------+--------+ + + documented as of this encounter Results XR Lumbar Spine 2 or 3 Vw (11/05/2012 11:02 AM PDT) + + | Specimen | + + | | + + + + + | Narrative | Performed At | + + + | [facility] | [place] | | Department [address] | [facility] | | [ rep [address]] [ rep [facility] | | [facility]] Signed | - IMAGING | | | | | Patient Name: TREE COLLADO Physician: | | | ARRE.[birth year] : 1940 Age: 72 Sex: F Unit #: [id number] | | | Exam Date: 11/05/12 Location: [facility] | | | Report #: [id number] Page: | | | %(RAD)RES..mtdd.print.filter("pg") of %(RAD) | | | RES..mtdd.print.filter("tpg") | | | | | | Accession Number: [id number] | | | LUMBAR SPINE LIMITED X-RAY, [...] Transcribed Date/Time: | | | 11/05/2012 11:58 Lamina Searcher: | | | <<Signature on File>> | | | Parker | | | Gisell Deluna MD11/05/124 <Electronically signed by Parker Jameson | | | Regi LOPEZ> Parker Deluna MD 11/05/12 1102 | | | Lamina Searcher: [employer] Ckougzfpnybih73/15/13 7048 | | | Jose Juan Bo MD | | + + + + + + + + | Performing | Address | City/State/Zipcode | Phone Number | | Organization | | | | + + + + + | [facility] | [address] | [place] | [phone] | | [facility] | | [address] | | | - IMAGING | | | | + + + + + documented in this encounter Visit Diagnoses + + | Diagnosis | + + | Status post lumbar spinal fusion - Primary Arthrodesis status | + + documented in this encounter
--- OUTSIDE RECORDS SUMMARY | ~2020-03-05 | XMS | Encounter Summary ---
Demographics + + + | Address | [address] | | | [place] [address] | + + + | Home Phone | | + + + | Preferred Language | Unknown | + + + | Marital Status | | + + + | Gnosticist Affiliation | 1041 | + + + [...] [place], [place] | | | | | [address] | | + + + + + | Mercedes Lemus | ECON | [place] | | | | | [address] | | + + + + + Care Team Providers + +------+ + | Care Biology Lecturer Name | Role | Phone | + [...] | Lumbar | Yo, | [address] | | | | | radiculopath | Cecilio Ortiz MD | [place], | | | | | y | [address] | [place] | | | | | Procedures | [place] | [address] | | | | | [place] INJECT | [place], [place] | Phone: | | | | | ANES/STEROID | [address] | [phone] | | | | | FORAMEN | Phone: | Fax: | | | | | LUMBAR/SACRA | [phone] | [phone] | | | | | L W IMG | Fax: | | | | | | GUIDE ,1 | [phone] | | | | | | LEVEL [place] | | | | | | | [...] + + + + | 04/05/ | [facility] | [facility] | Cecilio Ram | Lumbar radiculopathy | | 2017 | Encounter | MED CTR XRAY [address] | T, [address] | | | | | [address] [place] [place] | [facility] [place] | | | | | [place] [address] | [id number] | | | | | [phone] | | | | | | | Doughnut Batter MixerShukri | | | | | | evans savagea | | +--------+ + + + [...] | + + + | 04/05/2017 | [facility] | | Transforaminal Epidural Steroid InjectionDiagnosis: Lumbar | [facility] | | radiculopathyICD-10 Code M54.16 Mary Collado presents to the [facility] | | fluoroscopy suite for a fluoroscopically-guided [...] [address] | [address] | [place] | [phone] | | [facility] | | [address] | | | - IMAGING | | [...]
--- OUTSIDE RECORDS SUMMARY | ~2020-03-05 | XMS | Encounter Summary ---
Demographics + + + | Address | [address] | | | [place] [address] | + + + | Home Phone | | + + + | Preferred Language | Unknown | + + + | Marital Status | | + + + | Jewish Affiliation | 1041 | + + + | Race | Unknown | + + + | Ethnic Group | Unknown | + + + Author + + + | Author | [facility] | | | and [place] | + + + | Organization | [facility] | | | [...] [place], [place] | | | | | [address] | | + + + + + | Mercedes Lemus | ECON | [place] | | | | | [address] | | + + + + + Care Team Providers + +------+ + | Care Spray Worker Name | Role | Phone | + +------+ + PCP | Unavailable | + +------+ + Encounter Details +--------+ + + + + | Date | Type | Department | Care Team | Description | +--------+ + + + + | 10/07/ | Hospital | [facility] | Vance Joel | Coronary | | 2010 | Encounter | [facility] | MD [address] | atherosclerosis of | | | | CLINICAL DECISION | Marguerite Lance | [place] coronary | | | | [address] | [place] [address] | artery | | | | [place], [place] | [phone] | | | | | [address] | | | | | | [phone] | | | +--------+ + + + [...] (RUIZ caudal, RUIZ cranial, | | | CHILEAN cranial and CHILEAN caudal). After this, the injection system was [...] and standard views | | | obtained (CHILEAN cranial, RUIZ). After this, the injection system [...] 50 mL. | | | P A HANG/terry/[id number]/ | | | Read by VANCE JOEL [...] | | views (RUIZ caudal, RUIZ cranial, CHILEAN cranial and CHILEAN caudal). After this, | | the injection [...] ostium and standard | | views obtained (CHILEAN cranial, RUIZ). After this, the injection system [...] | P | | A | | HANG/terry/[id number]/ | | | | Read by | | VANEC JOEL DO 10/11/2010 01:08 P | | | | | + + documented in this encounter Visit Diagnoses + + | Diagnosis | + + | Coronary atherosclerosis of [place] coronary artery | + + documented in this encounter"
--- OUTSIDE RECORDS SUMMARY | ~2020-03-05 | XMS | Encounter Summary ---
Demographics + + + | Address | [address] | | | [place] [address] | + + + | Home Phone | | + + + | Preferred Language | Unknown | + + + | Marital Status | | + + + | Amish Affiliation | 1041 | + + + | Race | Unknown | + + + | Ethnic Group | Unknown | + + + Author + + + | Author | [facility] | | | and [place] | + + + | Organization | [facility] | | [...] [place], [place] | | | | | [address] | | + + + + + | Mercedes Lemus | ECON | [place] | | | | | [address] | | + + + + + Care Team Providers + +------+ + | Care Fiction And Nonfiction Prose Writer Name | Role | Phone | + +------+ + | Hector Mccoy DO | PCP | | + +------+ + Reason for Visit + +--------+ + | Reason | Onset | Comments | | | Date | | + +--------+ + | Injections | 09/01/ | | | | 2017 | | + +--------+ + Encounter Details +--------+ + + + + | Date | Type | Department | Care Team | Description | +--------+ + + + + | 09/01/ | Telephone | [facility] | Cecilio Ram | Injections | | 2017 | | [address]SIATRY [address] | T, [address] | | | | | [address] | [place], [place] | | | | | [facility] [place] | [address] | | | | | [address] | | | | | | [phone] | | | +--------+ + + + [...] this encounter Miscellaneous Notes Telephone Encounter - Jessica Stewart Aide - 09/04/2017 10:59 AM PSTCalled patient claudine, danny myers her headache has resolved and she thinks the problem was that she did not drink water after the injection. Telephone Encounter - Ann Marie Prado - 09/01/2017 8:17 AM PSTPatient has had serve dionicio adams since yesterday's injection. She has taken excedrin but hasn't helped. Please advise E lectronically signed by Ann Marie Prado at 09/01/2017 8:19 AM PSTdocumented in this enco unter Plan of Treatment Not on filedocumented as of this encounter Visit Diagnoses Not on filedocumented in this encounter"
--- OUTSIDE RECORDS SUMMARY | ~2020-03-05 | XMS | Encounter Summary ---
Demographics + + + | Address | [address] | | | [place] [address] | + + + | Home Phone | | + + + | Preferred Language | Unknown | + + + | Marital Status | | + + + | Yazidism Affiliation | 1041 | + + + | Race | Unknown | + + + | Ethnic Group | Unknown | + + + Author + + + | Author | [facility] | | | and [place] | + + + | Organization | [facility] | | | and [place] | + + + | Address | Unknown | + + + | Phone | Unavailable | + + + Support + + + + + | Name | Relationship | Address | Phone | + + + + + | Lwa Collado | ECON | [address] | | | | | [place], [place] | | | | | [address] | | + + + + + | Mercedes Lemus | ECON | [place] | | | | | [address] | | + + + + + Care Team Providers + +------+ + | Care Top Executive Name | Role | Phone | + [...] | | | | Major Joint | [address] | | | | | | Right | Phone: | | | | | | | [phone] | | | | | | | Fax: | | | | | | | [phone] | | +--------+--------+ + + + + [...] | Lumbar | [place], | [address] | | | | | radiculopath | Cecilio Ortiz MD | [place], | | | | | y | [address] | [place] | | | | | Procedures | [place] | [address] | | | | | [place] INJECT | [place], [place] | Phone: | | | | | ANES/STEROID | [address] | [phone] | | | | | FORAMEN | Phone: | Fax: | | | | | LUMBAR/SACRA | [phone] | [phone] | | | | | L W IMG | Fax: | | | | | | GUIDE ,1 | [phone] | | | | | | LEVEL [...] + + | 04/16/ | Hospital | [facility] | Angus, | Spinal stenosis of | | 2018 | Encounter | MED CTR XRAY [address] | [address] | lumbar region with | | | | [place] | [address] | radiculopathy; S/P | | | | [place] [address] | [place] [address] | lumbar fusion; | | | | [phone] | [phone] | Chronic pain of | | | | | | right knee | | | | | Chimney BuilderShukri | | | | | | [place] [...] + + | Performing | Address | City[facility]State[facility] | Phone Number | | Organization | [...]
--- OUTSIDE RECORDS SUMMARY | ~2020-03-05 | XMS | Encounter Summary ---
Demographics + + + | Address | [address] | | | [place] [address] | + + + | Home Phone [...] [place], [place] | | | | | [address] | | + + + + + | Mercedes Lemus | ECON | [place] | | | | | [address] | | + + + + + Care Team Providers + +------+ + | Care Electronic Publications Specialist Name | Role | Phone | + [...] | Lumbar | Yo, | [address] | | | | | radiculopath | Cecilio Ortiz MD | [place], | | | | | y | [address] | [place] | | | | | Procedures | [place] | [address] | | | | | [place] INJECT | [place], [place] | Phone: | | | | | ANES/STEROID | [address] | [phone] | | | | | FORAMEN | Phone: | Fax: | | | | | LUMBAR/SACRA | [phone] | [phone] | | | | | L W IMG | Fax: | | | | | | GUIDE ,1 | [phone] | | | | | | LEVEL [place] | | | | | | | [...] + + | 08/31/ | Hospital | [facility] | Cecilio Ram | Lumbar radiculopathy | | 2018 | Encounter | MED CTR XRAY [address] | T, [address] | | | | | [place] | ST [place] | | | | | [place] [address] | [address] | | | | | [phone] | | | | | | | Tack Puller MachineShukri | | | | | | [place] [...] 2:15 | | | | | ONCE, [facility] 08/31/17 at 1430, For 1 | [...] | | | | | Other, ONCE, [facility] 08/31/17 at 1430, | | PM PST [...]
--- OUTSIDE RECORDS SUMMARY | ~2020-03-05 | XMS | Encounter Summary ---
Demographics + + + | Address | [address] | | | [place] [address] | + + + | Home Phone [...] [place], [place] | | | | | [address] | | + + + + + | Mercedes Lemus | ECON | [place] | | | | | [address] | | + + + + + Care Team Providers + +------+ + | Care Customer Support Agent Name | Role | Phone | [...] + + | 04/17/ | Telephone | [facility] | Cecilio Ram | Hyperglycemia | | 2017 | | PHYSIATRY [address] | TMD [address] | | | | | [address] | [address] [place] | | | | | [place] | [address] | | | | | [address] | | | | | | [phone] | | | +--------+ + + + [...]
--- OUTSIDE RECORDS SUMMARY | ~2020-03-05 | XMS | Encounter Summary ---
Demographics + + + | Address | [address] | | | [place] [address] | + + + | Home Phone | | + + + | Preferred Language | Unknown | + + + | Marital Status | | + + + | Evangelical Affiliation | 1041 | + + + | Race | Unknown | + + + | Ethnic Group | Unknown | + + + Author + + + | Author | [facility] | | | and [place] | + + + | Organization | [facility] [...] [place], [place] | | | | | [address] | | + + + + + | Mercedes Lemus | ECON | [place] | | | | | [address] | | + + + + + Care Team Providers + +------+ + | Care Licensed Optical Dispenser Name | Role | Phone | + +------+ + | Martell Hilario NP | PCP | | + +------+ + Reason for Visit + +--------+ + | Reason | Onset | Comments | | | Date | | + +--------+ + | Injections | 01/27/ | | | | 2019 | | + +--------+ + Encounter Details +--------+ + + + + | Date | Type | Department | Care Team | Description | +--------+ + + + + | 01/27/ | Telephone | [facility] | Cecilio Ram | Injections | | 2019 | | [address]YSIATRY [address] | MD Diana [address] | | | | | [address] | [place], [place] | | | | | [place] | [address] | | | | | [address] | | | | | | [phone] | | | +--------+ + + + [...] Notes Telephone Encounter - Ellie Denny - 01/29/2020 3:19 PM PDTFirst attempt to schedule Same day injections LVM to call our office Electronically signed by Ellie Denny at 3:20 PM PDTTelephone Encounter - Cassie Ramos - 01/28/2020 2:50 PM PDTInjections are approved. Can she be scheduled for the injections or do we schedule for same day injec tions? Thanks. elephone Encounter - Marina Cassidy CMA - 01/28/2020 2:01 PM PDTReferral submitted to the gestigon. Medications look good.Electronically signed by Marina Cassidy CMA at 020 2:02 PM PDTTelephone Encounter - Cassie Ramos - 01/28/2020 11:18 AM PDTThe patient jazzmine led and is requesting a repeat same day injection. The patient was last seen in 2018, please advise if a same day would be allowed. documented in this encounter Plan of Treatment Not on filedocumented as of this encounter Visit Diagnoses Not on filedocumented in this encounter"
--- OUTSIDE RECORDS SUMMARY | ~2020-03-05 | XMS | Encounter Summary ---
Demographics + + + | Address | [address] | | | [place] [address] | + + + | Home Phone | | + + + | Preferred Language | Unknown | + + + | Marital Status | | + + + | Denominational Affiliation | 1041 | + + + | Race | Unknown | + + + | Ethnic Group | Unknown | + + + Author + + + | Author | [facility] | | | and [place] | + + + | Organization | [facility] | [...] [place], [place] | | | | | [address] | | + + + + + | Mercedes Lemus | ECON | [place] | | | | | [address] | | + + + + + Care Team Providers + +------+ + | Care Anime Artist Name | Role | Phone | [...] + + | 03/14/ | Office | [facility] | Cecilio Ram | Lumbar radiculopathy | | 2017 | Visit | [address]SIATRY [address] | MD Diana [address] | (Primary Dx); | | | | [address] | [place] [facility] [place] | Status post lumbar | | | | [place] | [address] | spinal fusion; | | | | [address] | | Spinal stenosis of | | | | [phone] | | lumbar region with | | [...] of the procedure you must provide a package delivery driver to take you home. For all procedur es it is recommended that someone else drive you home. documented in this encounter Progress Notes Cecilio Ram MD - 03/14/2017 10:50 AM PDT Cecilio Ram MD [address] [place], [place] [address] FAX: PHYSICAL MEDICINE AND REHABILITATION H&P CHIEF [...] has no apparent deficits with short or group home memory. She has appropriate fund of knowledge [...] | Transforaminal Epidural Steroid InjectionDiagnosis: Lumbar | [facility] | | radiculopathyICD-10 Code M54.16 Mary Collado presents to the [facility] | | fluoroscopy suite for [...] + + | Performing | Address | City/State/[facility] | Phone Number | | Organization | | | | + + + + + | [address] | [address] | [place] | [phone] | | [facility] | | [address] | | | - IMAGING | | [...]
--- OUTSIDE RECORDS SUMMARY | ~2020-03-05 | XMS | Clinical Summary ---
Demographics + + + | Address | [address] | | | [place] [address] | + + + | Home Phone [...] Law Collado | ECON | [address] | | | | | [place], [place] | | | | | [address] | | + + + + + | Mercedes Lemus | ECON | [place] | | | | | [address] | | + + + + + Care Team Providers + +------+ + | Care Gamb Cutter Name | Role | Phone | [...] + + | 01/29/ | Telephone | Physical Medicine | Keron Villeda, | Other | | 2020 | | and Rehabilitation | DANIA | | +--------+ + + + + | 01/27/ | Telephone | Physical Medicine | Cecilio Ram | Mallorie | | 2020 | | and Rehabilitation | MD Diana | | +--------+ + + + + [...] | + + + + + | Hepatitis C | | | | | Screening | 2 | | | + + + + + | Med Mgmt: HBA1C | | | | | | 2 | | | + + + + + | Medication | | | | | Management | 2 | | | + + [...] | + + + + + | Med Mgmt: BUN | | 12/10/19 | | | | 6 | 15, | | | | | 05/11/20 | | | | | 12, | | | | | 03/21/20 | | | | | 12 | | + + + + + | Med Mgmt: Cr | | 12/10/19 | | | | 6 | 15, | | | | | 05/11/20 | | | | | 12, | | | | | 03/21/20 | | | | | 12 | | + + + + + | Med Mgmt: K | | 12/10/19 | | | | 6 | 15, | | | | | 05/11/20 | | | | | 12, | | | | | 03/21/20 | | | | | 12 | | + + + + + | Med Mgmt: eGFR | | 12/10/19 | | | | 6 | 15, | | | | | 05/11/20 | | | | | 12, | | | | | 03/21/20 | | | | | 12 | | + + + + + | Vaccine: Influenza | | 06/05/20 | | | (#1) | 0 | 19, | | | | | [...] +--------+ +---------+--------+ | MEDICARE | MEDICA | [id number] | | [phone] | | Medica | | | RE | | 007-Pr | 5 | | re | | | PART A | | esent | | | | | | AND B | | | | | | + +--------+ +--------+ +---------+--------+ | MEDICARE | MEDICA | [id number] | | [phone] | | Medica | [...] | | al/Fam | | 1940 | [phone] | [place], [place] | | | dayna | | | 1 (Home) | [address] | + +--------+ +--------+ + + | Mary Collado | Person | Self | [birth year] | [address] | | | al/Fam | | 1940 | [phone] | [place], [place] | | | dayna | | | 1 (Home) | [address] | + +--------+ +--------+ + + Advance Directives + + + + + | Type | Date Recorded | Patient | Explanation | | | | Textile Science Technician | | + + + + + | Power of | | | | | Cylinder Worker | | | | + + + + + | Advance | 04/16/2018 12:20 | | | | Directive | PM | | | + + + + +
--- OUTSIDE RECORDS SUMMARY | ~2020-03-05 | XMS | Encounter Summary ---
Demographics + + + | Address | [address] | | | [place] [address] | + + + | Home Phone | | + + + | Preferred Language | Unknown | + + + | Marital Status | | + + + | Sikhism Affiliation | 1041 | + + + [...] [place], [place] | | | | | [address] | | + + + + + | Mercedes Lemus | ECON | [place] | | | | | [address] | | + + + + + Care Team Providers + +------+ + | Care Metal Miner Blasting Name | Role | Phone | + +------+ + | Hector Mccoy DO | PCP | | + +------+ + Encounter Details +--------+ + + + + | Date | Type | Department | Care Team | Description | +--------+ + + + + | 11/05/ | Hospital | [facility] | Jose Juan Bo | Status post lumbar | | 2012 | Encounter | MED CTR XRAY [address] | FMD [address] | spinal fusion | | | | [address] [place] | [place], [place] | | | | | [facility] [place] [address] | [address] | | | | | [phone] | [phone] | | | | | | [...] At | + + + | [facility] Diagnostic Imaging | [place] | | Department [address] [facility] | [facility] | | [ rep ct street[address]] [ rep [facility] | | st zip] Signed | - IMAGING | | | | | Patient Name: TREE COLLADO Physician: | | | Oliver : 1940 Age: 72 Sex: F Unit #: [id number] | | | Exam Date: 11/05/12 [place] [facility] | | | Report #: [id number] Page: | | | %(RAD)RES..mtdd.print.filter("pg") of %(RAD) | | | RES..mtdd.print.filter("tpg") | | | | | | Accession Number: [id number] | | | LUMBAR SPINE LIMITED X-RAY, [...] Transcribed Date/Time: | | | 11/05/2012 11:58 Home Connect Lpn: ELVI | | | <<Signature on File>> | | | Parker | | | Gisell Deluna MD11/05/121943 <Electronically signed by Parker Elena | | Regi LOPEZ> Parker Deluna MD 11/05/12 1102 | | | Home Connect Lpn: [employer] Hwmqmsgfjmnms04/15/13 1158 | | | Jose Juan Bo MD | | + + + + + + + + | Performing | Address | City/State/Zipcode | Phone Number | | Organization | | | | + + + + + | [facility] | [address] | [place] | [phone] | | [facility] | | [address] | | | - IMAGING | | | | + + + + + documented in this encounter Visit Diagnoses + + | Diagnosis | + + | Status post lumbar spinal fusion Arthrodesis status | + + documented in this encounter
--- OUTSIDE RECORDS SUMMARY | ~2020-03-05 | XMS | Encounter Summary ---
Demographics + + + | Address | [address] | | | [place] [address] | + + + | Home Phone [...] [place], [place] | | | | | [address] | | + + + + + | Mercedes Lemus | ECON | [place] | | | | | [address] | | + + + + + Care Team Providers + +------+ + | Care Check Inspector Name | Role | Phone | + +------+ + PCP | Unavailable | + +------+ + Encounter Details +--------+ + + + + | Date | Type | Department | Care Team | Description | +--------+ + + + + | 05/07/ | Hospital | [facility] | Jose Juan Bo | | | 2011 - | Encounter | MED CTR SURGICAL | MD Kelby [address] | | | | | [address] [place] | [place], [place] | | | 05/10/ | | [place] [address] | [address] | | | 2011 | | [phone] | | | | | | [...] Pako Norman PA-C - 08/10/2012 2:35 PM [place], [place] [address] Patient Name: TREE COLLADO Provider: Jose Juan Bo MD Unit #: [id number] Locati on: 3ES : 1940 ADMISSION DATE: 05/07/2012 DISCHARGE DATE: 05/10/2012 ADMITTING DIAGNOSIS: 1. Scoliosis. 2. Lumbar instability. 3. Lumbar spondylolisthesis. DISCHARGE DIAGNOSIS: 1. SCOLIOSIS. 2. LUMBAR INSTABILITY. 3. LUMBAR SPONDYLOLISTHESIS 4. S/P L4-5 LAIF and L5-S1 TLIF PROCEDURES: L4-5 Lateral anterior interbody fusion and L5-S1 TLIF with bilateral pedicle sc rew fixation CONSULTS: Dr. Csatro, Rehab Medicine. BRIEF HISTORY:MRs. Collado is a [...] and postoperatively was transferred to the regular [facility] where she remained hemodynamically stable and [...] condition and ready for discharge to rehab [facility]. DISCHARGE DISPOSITION: To Rehab DISCHARGE CONDITION: [...] Jose Juan Bo MD Neurosurgery JOB #: [id number] EXT JOB #:[id number] documented in t his encounter Miscellaneous Notes Op Note - Jose Juan Bo MD - 05/07/2012 6:40 PM [place] [address] Patient Name: TREE COLLADO Provider: Jose Juan Bo MD Unit #: [id number] Locati on: 3ES : 1940 DATE: 05/07/2012 PROCEDURE TITLE 1. L4-5 lateral anterior arthrodesis with interbody device. 2. L5-S1 lateral anterior a rthrodesis with interbody device. 3. L4-5 and L5-S1 bilateral posterior segmental pedicle screw arthrodesis. 4. L4-L5 and L5-S1 posterior onlay arthrodesis. 5. Intraoperative neuromonitoring. 6. Microsurgical technique. 7. Bone marrow aspirate. SURGEON: Jose Juan Bo MD BEHAVIOR SUPPORT SPECIALIST: MARIJA Lowe ANESTHESIA: General endotracheal by Bakari [...] access to the later al psoas. The [place] Cross-Fusion retractor system was employed to perform [...] s mall bone morphogenic protein, Mastergraft, and [place] with bone marrow aspirate. Once aga in, [...] with top nuts and then torqued to machine setup operator specification. Towers were then bro allyssa off. [...] Jose Juan Bo MD Neurosurgery JOB #: [id number] EXT JOB #:[id number] cc: MARIJA Bearden <<Signature on File>> Jose [...] + | Clarity, | CLEAR | | [facility] | | | Urine [...] - 1.030 | [facility] | | | [place], | | | [facility] | | [...] + | [facility] | [address] | [place], [place] | [phone] | | [facility] | | [address] | | | - LABORATORY | | | | + + + + + | [facility] | [address] | [place], [place] | | | [facility] | | [address] | | | - LABORATORY | | | | + + + + + XR Lumbar Spine 2 or 3 Vw (05/08/2012 11:18 AM PDT) + + | Specimen | + + | | + + + + + | Narrative | Performed At | + + + | [facility] | [place] | | Department [address] [place], [place] [address] | [facility] | | [ rep ct street1+[address]] [ rep [facility] | | st zip] Signed | - IMAGING | | | | | Patient Name: TREE COLLADO Physician: | | | JOSIE.[email or web address] : 1940 Age: 71 Sex: F Unit #: [id number] | | | Exam Date: 05/08/12 Location: [address] [place] [address] | | | Report #: [id number] Page: | | | %(RAD)RES..mtdd.print.filter("pg") of %(RAD) | | | RES..mtdd.print.filter("tpg") | | | | | | Accession Number: [id number] | | | LUMBAR SPINE LIMITED, 05/08/2012 CLINICAL HISTORY: | | | POSTOP SURGERY. COMPARISON: Preoperative radiograph | | | 01/26/2012 from [facility]. FINDINGS: | | | Frontal and lateral [...] | | | Transcribed Date/Time: 05/08/2012 11:47 Disposition Clerk: | | | <<Signature on File>> | | | Roger | | | Diana Leonard MD05/08/12 6162 <Electronically signed by Roger Ortiz | | | Aisha LOPEZ> Roger Leonard MD 05/08/12 1118 | | | Disposition Clerk: Lubna Rasheed05/08/12 1147 | | | Jose Juan Bo MD | | + + + + + + + + | Performing | Address | City/State/Zipcode | Phone Number | | Organization | | | | + + + + + | [facility] | [address] | [place] | [phone] | | [facility] | | [address] | | | - IMAGING | | | | + + + + + documented in this encounter Visit Diagnoses Not on filedocumented in this encounter
--- OUTSIDE RECORDS SUMMARY | ~2020-03-05 | XMS | Encounter Summary ---
Demographics + + + | Address | [address] | | | [place] [address] | + + + | Home Phone [...] [place], [place] | | | | | [address] | | + + + + + | Mercedes Lemus | ECON | [place] | | | | | [address] | | + + + + + Care Team Providers + +------+ + | Care Surface Room Shop Optician Name | Role | Phone | + [...] + + | 06/19/ | Office | [facility] | Nish Gotti | Scoliosis of lumbar | | 2011 | Visit | NEUROSURGERY [address] | DANIA D[address] | spine (Primary Dx); | | | | [address] | [address] [place], [place] | Spondylolisthesis of | | | | [place], [place] | [id number] | lumbar region; | | | | [address] | | Degenerative disc | | | | [phone] | | disease, lumbar; | | | [...] differ ent from the original. MARIJA Brooks [address] [place] [address], [address] [place], [place] [address] FAX: NEUROSURGERY SURGICAL FOLLOW-UP CHIEF COMPLAINT: Chief [...]
--- OUTSIDE RECORDS SUMMARY | ~2020-03-05 | XMS | Encounter Summary ---
Demographics + + + | Address | [address] | | | [place] [address] | + + + | Home Phone [...] [place], [place] | | | | | [address] | | + + + + + | Mercedes Lemus | ECON | [place] | | | | | [address] | | + + + + + Care Team Providers + +------+ + | Care Rn Hemodialysis Charge Name | Role | Phone | + [...] | | fusion | [place], [place] | Normanna | | | | | Procedures | [address] | [place], | | | | | MRI Lumbar | Phone: | [place] [address] | | | | | Spine wo | [phone] | Phone: | | | | | Contrast | Fax: | [phone] | | | | | Faxed 10/20 | [phone] | Fax: | | | | | | | [phone] | +--------+--------+ + + + + Reason [...] | | | | , lumbar | [address] | [address] Phone: | | | | | region | Phone: | [phone] | | | | | | [phone] | Fax: | | | | | | Fax: | [phone] | | | | | | [phone] | | +--------+--------+ + + + + Encounter Details +--------+---------+ + + + | Date | Type | Department | Care Team | Description | +--------+---------+ + + + | 10/05/ | Office | [facility] | Cecilio Ram | Lumbar radiculopathy | | 2017 | Visit | PHYSIATRY [address] | T[address] | (Primary Dx); S/P | | | | [address] | [place] | lumbar fusion; | | | | [place] | [address] | Osteoarthritis of | | | | [address] | | spine with | | | | [phone] | | radiculopathy, | | | | [...] 11:17 AM PDT Cecilio Ram MD [address] [facility], [address] [place], [place] [address] FAX: PHYSICAL MEDICINE AND REHABILITATION H&P CHIEF COMPLAINT: Chief Complaint Patient presents with Back Pain Low back pain that radiates into the left leg HISTORY OF PRESENT ILLNESS: The patient is a 76 y.o. female being [facility] today at [facility] t of Dr. Ron Mccoy for [...] minutes if needed. Patient must have a airport driver. 2 tablet 0 lovastatin (MEVACOR) 20 [...] has no apparent deficits with short or terminal makeup operator memory. She has appropriate fund of knowledge [...] She wishes to have this done in [place] as that is irena ser to home. [...]
--- OUTSIDE RECORDS SUMMARY | ~2020-03-05 | XMS | Encounter Summary ---
Demographics + + + | Address | [address] | | | [place] [address] | + + + | Home Phone [...] [place], [place] | | | | | [address] | | + + + + + | Mercedes Lemus | ECON | [place] | | | | | [address] | | + + + + + Care Team Providers + +------+ + | Care Bottle Cleaner Name | Role | Phone | + [...] + + | 05/22/ | Telephone | [facility] | Jose Juan Bo | Other (return to | | 2011 | | NEUROSURGERY [address] | [address] | work ) | | | | [address] | [address] [place] | | | | | [place] | [address] | | | | | [address] | [phone] | | | | | [phone] | | | +--------+ + + + [...] PDTWow, that's quick. 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 Don't say progress as tolerated. 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 Please advise. Bonny Decker documented in this encounter Plan of Treatment Not on filedocumented as of this encounter Visit Diagnoses Not on filedocumented in this encounter
--- OUTSIDE RECORDS SUMMARY | ~2020-03-05 | XMS | Encounter Summary ---
Demographics + + + | Address | [address] | | | [place] [address] | + + + | Home Phone | | + + + | Preferred Language | Unknown | + + + | Marital Status | | + + + | Quaker Affiliation | 1041 | + + + | Race | Unknown | + + + | Ethnic Group | Unknown | + + + Author + + + | Author | [facility] | | | and [place] | + + + | Organization | [facility] | | [...] [place], [place] | | | | | [address] | | + + + + + | Mercedes Lemus | ECON | [place] | | | | | [address] | | + + + + + Care Team Providers + +------+ + | Care Solvent Plant Operator Name | Role | Phone | + +------+ + PCP | Unavailable | + +------+ + Encounter Details +--------+ + + + + | Date | Type | Department | Care Team | Description | +--------+ + + + + | 03/21/ | Hospital | [facility] | Jose Juan Bo | | | 2011 | Encounter | MED CTR LABORATORY | MD Kelby [address] | | | | | [address] [place] | [place], [place] | | | | | [place], [place] | [address] | | | | | [address] | [phone] | | | | | [phone] | | | +--------+ + + + [...] [address] | [place] | [phone] | | [facility] | | [address] | | | - LABORATORY | | [...] + | [facility] | [address] | [place] | [phone] | | [facility] | | [address] | | | - LABORATORY | | | | + + + + + | [facility] | [address] | [place], [place] | | | [facility] | | [address] [place] [address] | | | - LABORATORY | | [...] + | [facility] | [address] | [place], [place] | [phone] | | [facility] | | [address] | | | - LABORATORY | | | | + + + + + | [facility] | [address] | [place], [place] | | | [facility] | | [address], [facility] | | | - LABORATORY | [...] + | [facility] | [address] | [place], [place] | [phone] | | [facility] | | [address] | | | - LABORATORY | | | | + + + + + | [facility] | [address] | [place], [place] | | | [facility] | | [address] [place] [address] | | | - LABORATORY | | | | + + + + + CBC no Differential (03/21/2012 4:17 PM PDT) + +-------+ + + + | Component | Value | Ref Range | Performed | Pathologist | | | | | At | Signature | + +-------+ + + + | White Blood | 5.1 | 4.0 - 11.0 K/uL | [facility] | | | Cells | | | [facility] | | | | | | MEDICAL | | | | | | CENTER - | | | | | | LABORATORY | | + +-------+ + + + | Red Blood | 4.12 | 3.70 - 5.20 | [facility] | | | Cells | | M/uL | [facility] | | | | | | MEDICAL | | | | | | CENTER - | | | | | | LABORATORY | | + +-------+ + + + | Hemoglobin | 13.7 | 11.5 - 16.0 | [facility] | | | | | gm/dL | [facility] | | | | [...] + | [facility] | [address] | [place] | [phone] | | [facility] | | [address] | | | - LABORATORY | | | | + + + + + | [facility] | [address] | [place] | | | [facility] | | [id number] [place] [address] | | | - LABORATORY | | | | + + + + + documented in this encounter Visit Diagnoses Not on filedocumented in this encounter"
--- OUTSIDE RECORDS SUMMARY | ~2020-03-05 | XMS | Encounter Summary ---
Demographics + + + | Address | [address] | | | [place] [address] | + + + | Home Phone | | + + + | Preferred Language | Unknown | + + + | Marital Status | | + + + | Judaism Affiliation | 1041 | + + + | Race | Unknown | + + + | Ethnic Group | Unknown | + + + Author + + + | Author | [facility] | | | and [place] | + + + | Organization | [facility] | | [...] [place], [place] | | | | | [address] | | + + + + + | Mercedes Lemus | ECON | [place] | | | | | [address] | | + + + + + Care Team Providers + +------+ + | Care Floral Specialist Name | Role | Phone | [...] | | | [address] [place] | [place] [address] | | | | | [place] [address] | | | | | | [phone] | | | +--------+ + + + [...]
--- OUTSIDE RECORDS SUMMARY | ~2020-03-05 | XMS | Encounter Summary ---
Demographics + + + | Address | [address] | | | [place] [address] | + + + | Home Phone | | + + + | Preferred Language | Unknown | + + + | Marital Status | | + + + | Bahai Affiliation | 1041 | + + + | Race | Unknown | + + + | Ethnic Group | Unknown | + + + Author + + + | Author | [facility] | | | and [place] | + + + | Organization | [facility] | | | [...] [place], [place] | | | | | [address] | | + + + + + | Mercedes Lemus | ECON | [place] | | | | | [address] | | + + + + + Care Team Providers + +------+ + | Care Swage Tender Name | Role | Phone | + [...] + + | 11/02/ | Telephone | [facility] | Cecilio Ram | Results | | 2016 | | PHYSIATRY [address] | [address] | | | | | [address] | [place] | | | | | [place] | [address] | | | | | [address] | | | | | | [phone] | | | +--------+ + + + [...] relax and relief medicated foaming bath at [facility] and states this has helped with her [...] is not currently acc epting calls. elep jma Encounter - Cecilio Ram MD - 11/04/2016 1:10 PM PDTThe [facility] from [facility]. This does show that there [...]
--- OUTSIDE RECORDS SUMMARY | ~2020-03-05 | XMS | Encounter Summary ---
Demographics + + + | Address | [address] | | | [place] [address] | + + + | Home Phone | | + + + | Preferred Language | Unknown | + + + | Marital Status | | + + + | Mandaeism Affiliation | 1041 | + + + | Race | Unknown | + + + | Ethnic Group | Unknown | + + + Author + + + | Author | [facility] | | | and [place] | + + + | Organization | [facility] | | | and [...] [place], [place] | | | | | [address] | | + + + + + | Mercedes Lemus | ECON | [place] | | | | | [address] | | + + + + + Care Team Providers + +------+ + | Care Radio Time Salesperson Name | Role | Phone | + +------+ + PCP | Unavailable | + +------+ + Encounter Details +--------+ + + + + | Date | Type | Department | Care Team | Description | +--------+ + + + + | 05/10/ | Hospital | [facility] | Delbert Castro | | | 2011 - | Encounter | MED CTR IRF [address] | MD Dereck [address] | | | | | [address] [place], | [address] [place] | | | 05/16/ | | [place] [address] | [place] [address] | | | 2011 | | [phone] | [phone] | | | | | | | [...] Delbert Castro MD - 05/16/2012 11:09 [place] [address] Patient Name: TREE COLLADO Provider: Fercho Castro MD Unit #: [id number] Locatio n: 3ER : 1940 ADMISSION DATE: [...] medically ready, she was magaña sferred to [facility] for further rehabilitation o n 05/11/2012. She was minimal assistance for lower body dressing, moderate assistance in to ileting and in and out of bed, prior to admission to rehabilitation. PERTINENT POSITIVES ON PHYSICAL EXAMINATION ON ADMISSION: Shoulder strength 4, elbow stren gth and vacuum caster 4+, right hip strength 3, left hip [...] able to be discharged home in her [facility]'s care actually sooner than I expected. Her [...] to manage her at the level of [facility], and thus she was able to be discharge home to [place] about 2 days earlier than I expe [...] given #50 of t he Percocet. 10. Springville for more moderate pain. FOLLOWUP: Follow up with Ron Mccoy DO, in approximately 2 weeks. No home health or ou tpatient therapies are set up, the patient did not feel she needed them or wanted them. Fol low up with Dr. Bo in 3 weeks. DICTATED BY: Fercho Castro MD, PHD Physiatry JOB #: [id number] EXT JOB #:[id number] cc: DO Jose Juan Henley MD <<Signature on File>> Fercho Castro MD05/16/12 1652 < documented in this encounter Consult Notes Delbert Castro MD - 05/11/2012 5:31 PM PDT [place], [place] [address] Patient Name: TREE COLLADO Provider: Fercho Castro MD Unit #: [id number] Locatio n: 3ER : 1940 DATE: 05/11/2012 [...] was medically ready she was transferred to [facility] for further rehabilitation on 05/11/2012. Prior to this I reviewed the case with the skin care instructor and the first day she was too [...] Insulin sliding scale. 20. Cepacol p.r.n. 21. Springville 7.5, last dose at 1 p.m. today. [...] cannot do any lifting. They live in [facility] in a 1- story home, 2 steps [...] extremities: Scarlet ulder strength 4, elbow and vacuum caster 4+, right hip 3, left 2+, right knee 4, left 4-, right ank le 4, left 2+. It is improved apparently from the surgery. Sensory evaluation: Normal light touch in the upper and lower extremities. Cerebellar exam: Normal xkznwp-[id number]-ebpswm, heel -to-buchanan not tested, no nystagmus, she [...] a cognitive screen and treat as appropriate, Cut Out Stitcher, Physiatric and Ac sing Intervention. PT will [...] instituted through PT, OT, Speech Th erapy, Cut Out Stitcher, Physiatric and Nursing Intervention. PT is working [...] goals. DISCHARGE DESTINATION: Home with her in [place] in a 1-story home, 2 steps in, w [facility] home health PT to their home safety [...] Fercho Castro MD, PHD Physiatry JOB #: [id number] EXT JOB #:[id number] <<Signature on File>> Fercho Castro MD05/12/12 1245 [...] - 1.030 | [facility] | | | [place], | | | [facility] | | [...] [address] | [place] | [phone] | | [facility] | | [id number] | | | - LABORATORY | | | | + + + + + | [address] | [address] | [place], [place] | | | [facility] | | [id number] | | | - LABORATORY | | [...] + + + | White Blood | 8.9 | 4.0 - 11.0 K/uL | [facility] | | | Cells | | | [facility] | | | | | | MEDICAL | | | | | | CENTER - | | | | | | LABORATORY | | + + + + + + | Red Blood | 3.95 | 3.70 - 5.20 | [facility] | | | Cells | | M/uL | [facility] | [...] + | [facility] | [address] | [place], [place] | [phone] | | [facility] | | [id number] | | | - LABORATORY | | | | + + + + + | [facility] | [address] | [place], [place] | | | [facility] | | [id number] | | | - LABORATORY | | [...] | | | | | | [facility] | | | | | | MEDICAL [...] [address] | [place] | [phone] | | [facility] | | [id number] | | | - LABORATORY | | | | + + + + + | [facility] | [address] | [place] | | | [facility] | | [id number] | | | - LABORATORY | | [...] + | [facility] | [address] | [place] | [phone] | | [facility] | | [address] | | | - LABORATORY | | | | + + + + + | [facility] | [address] | [place] | | | [facility] | | [id number] [place] [address] | | | - LABORATORY | | [...] + + + + | Clarity, | HAZY | | [facility] | | | Urine [...] - 1.030 | [facility] | | | [place], | | | [facility] | | | Urine | | | MEDICAL | | | | | | CENTER - | | | | | | LABORATORY | | + + + + + + | Blood, | NEGATIVE | NEGATIVE | [facility] | | | Urine | | | [facility] | | | | | | MEDICAL [...] + | [facility] | [address] | [place] | [phone] | | [facility] | | [phone] | | | - LABORATORY | | | | + + + + + | [facility] | [address] | [place], [place] | | | [facility] | | [phone] | | | - LABORATORY | | | | + + + + + documented in this encounter Visit Diagnoses Not on filedocumented in this encounter"
--- OUTSIDE RECORDS SUMMARY | ~2020-03-05 | XMS | Encounter Summary ---
Demographics + + + | Address | [address] | | | [place] [address] | + + + | Home Phone | | + + + | Preferred Language | Unknown | + + + | Marital Status | | + + + | Nondenominational Affiliation | 1041 | + + + [...] [place], [place] | | | | | [address] | | + + + + + | Mercedes Lemus | ECON | [place] | | | | | [address] | | + + + + + Care Team Providers + +------+ + | Care Configuration Management Architect Name | Role | Phone | [...] | | | | Major Joint | [id number] | | | | | | Right | Phone: | | | | | | | [phone] | | | | | | | Fax: | | | | | | | [phone] | | +--------+--------+ + + + + Reason for Visit + + + | Reason | Comments | + + + | Back Pain | | + + + Encounter Details +--------+---------+ + + + | Date | Type | Department | Care Team | Description | +--------+---------+ + + + | 04/11/ | Office | [facility] | Bogdakendallcz, | Lumbar radiculopathy | | 2017 | Visit | PHYSIATRY [address] | [address]ANIA [address] | (Primary Dx); | | | | [address] | [address] | Spinal stenosis of | | | | [place], [place] | [place] [address] | lumbar region with | | | | [address] | [phone] | radiculopathy; S/P | | | | [phone] | | lumbar fusion; | | | [...] of blood sugars if you are diabetic. longterm risk can lead to osteoporosis which is [...] of the procedure you must provide a jitney driver to take you home. For all procedur es it is recommended that someone else drive you home. documented in this encounter Progress Notes Ana Greco PA-C - 04/11/2018 10:40 AM PDTFormatting of this note might be differe nt from the original. Ana Greco PA-C [address], [address] [place], [place] [id number] FAX: PHYSICAL MEDICINE AND REHABILITATION H&P CHIEF [...] PT (multiple sessions over the years) and animal care giver. Unfortunately she cont inues to have significant [...]
--- OUTSIDE RECORDS SUMMARY | 2020-03-05 20:30 | XMS ---
PreManage Notification: TREE GARCIA [employer] Executive Events No recent Security Events currently on file CRITERIA MET - [facility] - Has Care Guidelines CARE PROVIDERS KING CAPUTO Nurse Practitioner: Family 03/21/2019-Current PHONE: [phone] Artis has no Care Guidelines for this patient. Care History Medical/Surgical 01/21/2020 [facility] Needed xrays for wrist pain.\T\nbsp; Patient stated that she does not need a follow up visit with PCP at this time. 04/02/2019 [facility] - PATIENT HAS PCP FOLLOW UP APT ON 04/18/19 WITH KING CAPUTO. - Patient is currently established with [facility]. If patient is seen in the ED during business hours. Please contact CHWs at [facility]. Care Recommendation: This patient has [...] COUNT (12 MO.) 1 [facility] 8 [facility] TOTAL 9 NOTE: Visits indicate total known visits. ED/UCC VISIT TRACKING (12 MO.) 03/05/2020 20:28 [facility] [place] TYPE: Emergency COMPLAINT: - FALL 01/18/2020 16:11 [facility] [place] TYPE: Emergency COMPLAINT: - WRIST PAIN DIAGNOSES: - Allergy status to narcotic agent status - Personal history of nicotine dependence - Essential (primary) hypertension - Pain in right wrist - Other senior care (current) drug therapy - Other bursal cyst, right wrist - Type 2 diabetes mellitus without complications - Hyperlipidemia, unspecified 12/13/2019 11:15 [facility] TYPE: Emergency COMPLAINT: - EYE PAIN DIAGNOSES: - Ocular pain, left eye - Other long term acute care registered nurse (current) drug therapy - Personal history of nicotine dependence - Hyperlipidemia, unspecified - Ocular pain, left eye - Essential (primary) hypertension - Other specified disorders of eye and adnexa - Type 2 diabetes mellitus without complications 08[facility]03[facility]2019 [facility] DIAGNOSES: - Cough - Flank Pain - Pleurodynia 05/30/2019 19:17 [facility] TYPE: Emergency COMPLAINT: - NAUSEA, HEADACHE DIAGNOSES: - Type 2 diabetes mellitus without complications - 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 - Other long term acute care registered nurse (current) drug therapy - Personal history of nicotine dependence - Headache - Hyperlipidemia, unspecified - Essential (primary) hypertension - Viral infection, unspecified 05/29/2019 07:45 [facility] [place] TYPE: Emergency COMPLAINT: - VOMITING DIAGNOSES: - Nausea with vomiting, unspecified - 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 - Other senior care (current) drug therapy - Essential (primary) hypertension - Hyperlipidemia, unspecified - Type 2 diabetes mellitus without complications - Personal history of nicotine dependence 04/04/2019 16:57 [facility] [place] TYPE: Emergency COMPLAINT: - HEAD/ LEFT ELBOW INJURY DIAGNOSES: - shelter (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 hypoglycemic drugs - Essential (primary) hypertension - Unspecified injury of head, initial encounter - Other long term acute care registered nurse (current) drug therapy - Abrasion of left elbow, initial encounter - Type 2 diabetes mellitus without complications - Fall on same level, unspecified, initial encounter - Hyperlipidemia, unspecified - Allergy status to narcotic agent status 03/31/2019 23:55 [facility] [place] TYPE: Emergency COMPLAINT: - CHEST PAIN 03/21/2019 04:[address] [facility] [place] TYPE: Emergency COMPLAINT: - FALL, DIZZINESS,BLOOD SUGAR PROBLEM DIAGNOSES: - Contusion of right knee, initial encounter - Fall on same level from slipping, tripping and stumbling with - Personal history of nicotine dependence - Hyperlipidemia, unspecified - Allergy status to narcotic agent status - shelter (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 hypoglycemic drugs - Type 2 diabetes mellitus without complications - Other long term acute care registered nurse (current) drug therapy - Concussion without loss of consciousness, initial encounter - Dizziness and giddiness - Essential (primary) hypertension INPATIENT VISIT TRACKING (12 MO.) No inpatient visits to display in this time frame [email or web address]
== END 2020-03-05 22:36 | disposition home or self-care (01) ==
LOC: ED 20:27
DX: S00.03XA Contusion of scalp, initial encounter (principal); S50.02XA Contusion of left elbow, initial encounter; E11.9 Type 2 diabetes mellitus without complications; I10 Essential (primary) hypertension; E78.5 Hyperlipidemia, unspecified; Z88.5 Allergy status to narcotic agent; Z79.899 Other long term (current) drug therapy; Z79.84 Long term (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 hypoglycemic drugs; W01.0XXA Fall on same level from slipping, tripping and stumbling without subsequent striking against object, initial encounter
CPT/HCPCS: 70450; 72125; 73080; 99284-25

== ENCOUNTER 2020-12-01 14:58 | Emergency (ER) | payer MEDICARE ==
[~2020-12-01] VITALS: Ht 162.6 cm; Wt 81.7 kg
--- OUTSIDE RECORDS SUMMARY | 2020-12-01 15:04 | XMS ---
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 Care History Medical/Surgical 03/09/2020 [facility] Patient stated no need for PCP follow up as she feels ok. 01/21/2020 [facility] Needed xrays for wrist pain.\T\nbsp; Patient stated that she does not need a follow up visit with PCP at this time. 04/02/2019 [facility] - PATIENT HAS PCP FOLLOW UP APT ON 04/18/19 WITH KING CAPUTO. - Patient is currently established with [facility]. If patient is seen in the ED during business hours. Please contact CHWs at [facility]. Care Recommendation: This patient has had [...] providing care. E.D. VISIT COUNT (12 MO.) [address] [facility] N[facility] TOTAL 4 NOTE: Visits indicate total known visits. ED/UCC VISIT TRACKING (12 MO.) 12/01/2020 14:58 [facility] [place] TYPE: Emergency COMPLAINT: - R EYE IRRITATION 03/05/2020 20:28 [facility] [place] TYPE: Emergency COMPLAINT: - FALL DIAGNOSES: - Contusion of scalp, initial encounter - Type 2 diabetes mellitus without complications - Hyperlipidemia, unspecified - Allergy status to narcotic agent - Contusion of left elbow, initial encounter - Fall on same level from slipping, tripping and stumbling without subsequent striking against object, initial encounter - Unspecified injury of head, initial encounter - prison (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 hypoglycemic drugs - Other termite helper (current) drug therapy - Essential (primary) hypertension 01/18/2020 16:11 [facility] [place] TYPE: Emergency COMPLAINT: - WRIST PAIN DIAGNOSES: - Allergy status to narcotic agent - Personal history of nicotine dependence - Essential (primary) hypertension - Pain in right wrist - Other chcf (current) drug therapy - Other bursal cyst, right wrist - Type 2 diabetes mellitus without complications - Hyperlipidemia, unspecified 12/13/2019 11:15 [facility] [place] TYPE: Emergency COMPLAINT: - EYE PAIN DIAGNOSES: - Ocular pain, left eye - Other chcf (current) drug therapy - Personal history of nicotine dependence - Hyperlipidemia, unspecified - Ocular pain, left eye - Essential (primary) hypertension - Other specified disorders of eye and adnexa - Type 2 diabetes mellitus without complications INPATIENT VISIT TRACKING ( MO.) No inpatient visits to display in this time frame [id number]
[2020-12-01] MEDS ORDERED: MAGNESIUM100 MG (15:10)
== END 2020-12-01 15:48 | disposition home or self-care (01) ==
LOC: ED 14:58
DX: H00.012 Hordeolum externum right lower eyelid (principal); E11.9 Type 2 diabetes mellitus without complications; I10 Essential (primary) hypertension; E78.5 Hyperlipidemia, unspecified; Z88.5 Allergy status to narcotic agent; Z79.899 Other long term (current) drug therapy
CPT/HCPCS: 99283

== ENCOUNTER 2021-05-25 14:46 | Emergency (ER) | payer MEDICARE ==
[~2021-05-25] VITALS: Ht 162.6 cm; Wt 90.7 kg
[~2021-05-25 14:46] MED LIST changes: +MAGNESIUM100 MG
--- OUTSIDE RECORDS SUMMARY | 2021-05-25 14:48 | XMS ---
PreManage Notification: TREE GARCIA Security Medical Billing Representative Events No recent Security Events currently on file CRITERIA MET - PDMP - [facility] - Has Care Guidelines CARE PROVIDERS KING CAPUTO Nurse Practitioner: Family 03/21/2019-Current PHONE: [phone] Artis has no Care Guidelines for this patient. Care History Medical/Surgical 03/09/2020 [facility] Patient stated no need for PCP follow up as she feels ok. 01/21/2020 [facility] Needed xrays for wrist pain.\T\nbsp; Patient stated that she does not need a follow up visit with PCP at this time. 04/02/2019 [facility] - PATIENT HAS PCP FOLLOW UP APT ON 04/18/19 WITH KING CAPUTO. - Patient is currently established with [facility]. If patient is seen in the ED during business hours. Please contact CHWs at [facility]. Care Recommendation: This patient has had [...] providing care. E.D. VISIT COUNT (12 MO.) 2 [facility] [place] TOTAL 2 NOTE: Visits indicate total known visits. ED/UCC VISIT TRACKING (12 MO.) 05/25/2021 14:46 [facility] [place] TYPE: Emergency COMPLAINT: - WEAKNESS, HEADACHE 12/01/2020 14:58 [facility] [place] TYPE: Emergency COMPLAINT: - R EYE IRRITATION DIAGNOSES: - Type 2 diabetes mellitus without complications - Hordeolum externum right lower eyelid - Hyperlipidemia, unspecified - Other shelter (current) drug therapy - Essential (primary) hypertension - Allergy status to narcotic agent INPATIENT VISIT TRACKING (12 MO.) No inpatient visits to display in this time frame [id number]
--- NOTE | 2021-05-25 20:09 | EKG ---
[facility] [address] [place], [place] [address] Signed Normal sinus rhythm Low voltage QRS Cannot rule out Anterior infarct , age undetermined Abnormal ECG When compared with ECG of 01-APR-2019 01:06, QRS duration has decreased Confirmed by MANJIT GHOSH MD ([id number]) on 05/25/2021 8:09:31 PM Electronically Signed By: MANJIT GHOSH MD 05/25/212008 PATIENT NAME: TREE GARCIA Electrocardiogram DATE OF : 44 PHYSICIAN: MANJIT GHOSH MD REPORT #: [id number] REPORT IS CONFIDENTIAL AND NOT TO BE RELEASED WITHOUT AUTHORIZATION
== END 2021-05-25 18:03 | disposition home or self-care (01) ==
LOC: ED 14:46
DX: D64.9 Anemia, unspecified (principal); E11.9 Type 2 diabetes mellitus without complications; I10 Essential (primary) hypertension; E78.5 Hyperlipidemia, unspecified; M19.90 Unspecified osteoarthritis, unspecified site; Z88.5 Allergy status to narcotic agent; Z79.899 Other long term (current) drug therapy
CPT/HCPCS: 51701; 71045; 80053; 81001; 83735; 84484; 85025; 93005; 93010; 99285-25; U0003

== ENCOUNTER 2021-07-09 15:56 | Emergency (ER) | payer MEDICARE ==
[~2021-07-09] VITALS: Ht 162.6 cm; Wt 90.7 kg
--- OUTSIDE RECORDS SUMMARY | 2021-07-09 15:58 | XMS ---
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 Care History Medical/Surgical 05/26/2021 [facility] Follow up visit with Dr. Garrido on 06/02/2021 03/09/2020 [facility] Patient stated no need for PCP follow up as she feels ok. 01/21/2020 [facility] Needed xrays for wrist pain.\T\nbsp; Patient stated that she does not need a follow up visit with PCP at this time. E.D. VISIT COUNT (12 MO.) 3 [facility] [place] TOTAL 3 NOTE: Visits indicate total known visits. ED/UCC VISIT TRACKING (12 MO.) 07/09/2021 15:56 [facility] [place] TYPE: Emergency COMPLAINT: - LOWER ABDOMINAL PAIN 05/25/2021 14:46 [facility] [place] TYPE: Emergency COMPLAINT: - WEAKNESS, HEADACHE DIAGNOSES: - Type 2 diabetes mellitus without complications - Unspecified osteoarthritis, unspecified site - Other supervisor intermediates (current) drug therapy - Anemia, unspecified - Allergy status to narcotic agent - Weakness - Essential (primary) hypertension - Hyperlipidemia, unspecified 12/01/2020 14:58 [facility] [place] TYPE: Emergency COMPLAINT: - R EYE IRRITATION DIAGNOSES: - Type 2 diabetes mellitus without complications - Hordeolum externum right lower eyelid - Hyperlipidemia, unspecified - Other supervisor intermediates (current) drug therapy - Essential (primary) hypertension - Allergy status to narcotic agent INPATIENT VISIT TRACKING (12 MO.) No inpatient visits to display in this time frame [id number]
[2021-07-09] MEDS ORDERED: K-TAB ER20 MEQ PO (17:31)
== END 2021-07-09 20:22 | disposition home or self-care (01) ==
LOC: ED 15:56
DX: R10.30 Lower abdominal pain, unspecified (principal); E11.9 Type 2 diabetes mellitus without complications; I10 Essential (primary) hypertension; E78.5 Hyperlipidemia, unspecified; Z88.5 Allergy status to narcotic agent; Z79.899 Other long term (current) drug therapy
CPT/HCPCS: 74177; 80053; 81001; 85025; 99284-25; J7030; Q9967

== ENCOUNTER 2021-08-08 20:32 | Emergency (ER) | payer MEDICARE ==
[~2021-08-08] VITALS: Ht 162.6 cm; Wt 107.5 kg
[~2021-08-08 20:32] MED LIST changes: +K-TAB ER20 MEQ PO
--- OUTSIDE RECORDS SUMMARY | 2021-08-08 20:34 | XMS ---
PreManage Notification: TREE GARCIA Security Weaver Dobby Loom Events No recent Security Events currently on file CRITERIA MET - [facility] - Has Care Guidelines - [facility] - 2 Visits in 30 Days - PDMP CARE PROVIDERS KING CAPUTO Nurse Practitioner: Family 03/21/2019-Current PHONE: Unknown KRUNAL GARRIDO Family Medicine 05/26/2021-Current PHONE: [phone] Artis has no Care Guidelines for this patient. Care History Medical/Surgical 07/13/2021 [facility] Frida Guillermo saw patient on 07/07/2021 for left side pain, due to falling at home, and advised if health/pain becomes worse to see PCP or go to ER. No follow up scheduled at this time. 07/12/2021 [facility] - Patient is currently established with [facility]. If patient is seen in the ED during business hours. Please contact CHWs at [facility]. Care Recommendation: This patient has had 5 or more Emergency Department visits in the last 12 months.\T\nbsp; Patient requires education on the scope and purpose of the ED as an acute care provider not a Primary Care Provider and should not be utilized for chronic conditions.\T\nbsp; These are guidelines and the provider should exercise clinical judgment when providing care. 05/26/2021 [facility] Follow up visit with Dr. Garrido on 06/02/2021 [place] [facility] NOTE: Visits indicate total known visits. ED/UCC VISIT TRACKING (12 MO.) [facility] [place] [facility] COMPLAINT: - ABD PAIN 07/09/2021 15:56 [facility] [place] TYPE: Emergency COMPLAINT: - LOWER ABDOMINAL PAIN DIAGNOSES: - Type 2 diabetes mellitus without complications - Hyperlipidemia, unspecified - Other terminal block assembler (current) drug therapy - Allergy status to narcotic agent - Essential (primary) hypertension - Lower abdominal pain, unspecified 05/25/2021 14:[address] [facility] [place] TYPE: Emergency COMPLAINT: - WEAKNESS, HEADACHE DIAGNOSES: - Type 2 diabetes mellitus without complications - Unspecified osteoarthritis, unspecified site - Other terminal block assembler (current) drug therapy - Anemia, unspecified - Allergy status to narcotic agent - Weakness - Essential (primary) hypertension - Hyperlipidemia, unspecified 12/01/2020 14:58 [facility] [place] TYPE: Emergency COMPLAINT: - R EYE IRRITATION DIAGNOSES: - Type 2 diabetes mellitus without complications - Hordeolum externum right lower eyelid - Hyperlipidemia, unspecified - Other care home (current) drug therapy - Essential (primary) hypertension - Allergy status to narcotic agent INPATIENT VISIT TRACKING (12 MO.) No inpatient visits to display in this time frame [id number]
[2021-08-08] MEDS ORDERED: LISINOPRIL20 MG PO (20:46)
[2021-08-08] MEDS ORDERED: PAXIL10 MG PO (20:47)
[2021-08-08] MEDS ORDERED: MAGNESIUM200 MG PO (20:48)
== END 2021-08-09 02:30 | disposition home or self-care (01) ==
LOC: ED 20:32
DX: R10.32 Left lower quadrant pain (principal); E11.9 Type 2 diabetes mellitus without complications; I10 Essential (primary) hypertension; E78.5 Hyperlipidemia, unspecified; M19.90 Unspecified osteoarthritis, unspecified site; Z88.5 Allergy status to narcotic agent; Z79.899 Other long term (current) drug therapy
CPT/HCPCS: 74177; 80053; 81001; 85025; 99284-25; J2405; Q9967

== ENCOUNTER 2021-10-18 21:15 | Emergency (ER) | payer MEDICARE ==
[~2021-10-18] VITALS: Ht 162.6 cm; Wt 107.5 kg
[~2021-10-18 21:15] MED LIST changes: +MAGNESIUM200 MG PO; +PAXIL10 MG PO
--- OUTSIDE RECORDS SUMMARY | 2021-10-18 21:18 | XMS ---
PreManage Notification: TREE GARCIA Security Drum Builder Events No recent Security Events currently on file CRITERIA MET - [facility] - Has Care Guidelines CARE PROVIDERS KING CAPUTO Nurse Practitioner: Family 03/21/2019-Current PHONE: Unknown KRUNAL GARRIDO Family Medicine 05/26/2021-Current PHONE: [phone] Artis has no Care Guidelines for this patient. Care History Medical/Surgical 07/13/2021 [facility] Frida Li saw patient on 07/07/2021 for left side pain, due to falling at home, and advised if health/pain becomes worse to see PCP or go to ER. No follow up scheduled at this time. 07/12/2021 [facility] - Patient is currently established with [facility]. If patient is seen in the ED during business hours. Please contact CHWs at [facility]. Care Recommendation: This patient has had 5 or more Emergency Department visits in the last 12 months.\T\nbsp; Patient requires education on the scope and purpose of the ED as an acute care provider not a Primary Care Provider and should not be utilized for chronic conditions.\T\nbsp; These are guidelines and the provider should exercise clinical judgment when providing care. 05/26/2021 [facility] Follow up visit with Dr. Garrido on 06/02/2021 [place] VISIT COUNT (12 MO.) 5 [facility] TOTAL 5 NOTE: Visits indicate total known visits. 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 [facility] [place] TYPE: Emergency COMPLAINT: - LOWER ABDOMINAL PAIN DIAGNOSES: - Type 2 diabetes mellitus without complications - Hyperlipidemia, unspecified - Other senior care (current) drug therapy - Allergy status to narcotic agent - Essential (primary) hypertension - Lower abdominal pain, unspecified 05/25/2021 14:[address] [facility] [facility] [place] TYPE: Emergency COMPLAINT: - WEAKNESS, HEADACHE DIAGNOSES: - Type 2 diabetes mellitus without complications - Unspecified osteoarthritis, unspecified site - Other senior care (current) drug therapy - Anemia, unspecified - Allergy status to narcotic agent - Weakness - Essential (primary) hypertension - Hyperlipidemia, unspecified 12/01/2020 14:[address] [facility] [place] TYPE: Emergency COMPLAINT: - R EYE IRRITATION DIAGNOSES: - Type 2 diabetes mellitus without complications - Hordeolum externum right lower eyelid - Hyperlipidemia, unspecified - Other senior care (current) drug therapy - Essential (primary) hypertension - Allergy status to narcotic agent INPATIENT VISIT TRACKING (12 MO.) No inpatient visits to display in this time frame [id number]
[2021-10-18] MEDS ORDERED: ULTRAM50 MG PO (23:12)
== END 2021-10-18 23:30 | disposition home or self-care (01) ==
LOC: ED 21:15
DX: S39.012A Strain of muscle, fascia and tendon of lower back, initial encounter (principal); E11.9 Type 2 diabetes mellitus without complications; I10 Essential (primary) hypertension; E78.5 Hyperlipidemia, unspecified; M19.90 Unspecified osteoarthritis, unspecified site; Z88.5 Allergy status to narcotic agent; Z79.899 Other long term (current) drug therapy; W18.30XA Fall on same level, unspecified, initial encounter
CPT/HCPCS: 36415; 70450; 72100; 80053; 80503; 85025; 85610; 99284-25

== ENCOUNTER 2021-10-20 22:29 | Inpatient (IN) | payer MEDICARE ==
[~2021-10-20] VITALS: Ht 162.6 cm; Wt 87.6 kg
[~2021-10-20 22:29] MED LIST changes: +ULTRAM50 MG PO
--- OUTSIDE RECORDS SUMMARY | 2021-10-20 22:32 | XMS ---
PreManage Notification: TREE GARCIA Security [employer]in[employer] Events No recent Security Events currently on file CRITERIA MET - [facility] - Has Care Guidelines - [facility] - 2 Visits in 30 Days CARE PROVIDERS KING CAPUTO Nurse Practitioner: Family 03/21/2019-Current PHONE: Unknown KRUNAL GARRIDO Family Medicine 05/26/2021-Current PHONE: [phone] [facility] has no Care Guidelines for this patient. Care History Medical/Surgical 07/13/2021 [facility] Fridaelizabeth Li saw patient on 07/07/2021 for left side pain, due to falling at home, and advised if health/pain becomes worse to see PCP or go to ER. No follow up scheduled at this time. 07/12/2021 [facility] - Patient is currently established with [facility]. If patient is seen in the ED during business hours. Please contact CHWs at [facility]. Care Recommendation: This patient has had 5 or more Emergency Department visits in the last 12 months.\T\nbsp; Patient requires education on the scope and purpose of the ED as an acute care provider not a Primary Care Provider and should not be utilized for chronic conditions.\T\nbsp; These are guidelines and the provider should exercise clinical judgment when providing care. 05/26/2021 [facility] Follow up visit with Dr. Garrido on 06/02/2021 [place] VISIT COUNT (12 MO.) [address] [facility] TOTAL 6 NOTE: Visits indicate total known visits. ED/UCC VISIT TRACKING (12 MO.) [facility] COMPLAINT: - WEAKNESS 10/18/2021 21:15 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 [place] TYPE: Emergency COMPLAINT: - LOWER ABDOMINAL PAIN DIAGNOSES: - Type 2 diabetes mellitus without complications - Hyperlipidemia, unspecified - Other ferry terminal agent (current) drug therapy - Allergy status to narcotic agent - Essential (primary) hypertension - Lower abdominal pain, unspecified 05/25/2021 14:46 [facility] [place] TYPE: Emergency COMPLAINT: - WEAKNESS, HEADACHE DIAGNOSES: - Type 2 diabetes mellitus without complications - Unspecified osteoarthritis, unspecified site - Other ferry terminal agent (current) drug therapy - Anemia, unspecified - Allergy status to narcotic agent - Weakness - Essential (primary) hypertension - Hyperlipidemia, unspecified 12/01/2020 14:58 [facility] [place] TYPE: Emergency COMPLAINT: - R EYE IRRITATION DIAGNOSES: - Type 2 diabetes mellitus without complications - Hordeolum externum right lower eyelid - Hyperlipidemia, unspecified - Other ferry terminal agent (current) drug therapy - Essential (primary) hypertension - Allergy status to narcotic agent INPATIENT VISIT TRACKING (12 MO.) No inpatient visits to display in this time frame [email or web address]
[2021-10-20] MEDS ORDERED: SPIRONOLACTONE100 MG PO (22:50)
--- NOTE | 2021-10-21 01:30 | NUR ---
PATIENT ARRIVED VIA STRETCHER. PATIENT ALERT AND ORIENTED. TOO WEAK TO MOVE HERSELF TO THE BED, 3PA TO SLIDE PATIENT OVER. PATIENT REPORTS PAIN FROM CABA. AREA CLEANED AND STAT LOCK REPLACED. IV BOLUS FROM ED FINISHING ON PUMP TUBING. IV SITE WNL X2. ORAL TEMP 99.7 F. TOLERATING ROOM AIR. DENIES GI UPSET, REPORTS NO BM FOR "A WEEK". BUT DENIES CONSTIPATION ADDING THAT SHE RECENTING WAS HAVING LOOSE STOOLS. NO NAUSEA. ICE WATER PROVIDED PER REQUEST. VS STABLE.
--- NOTE | 2021-10-21 02:00 | NUR ---
CRITICAL LAB RESULTS REPORTED TO . UPDATE PROVIDED ON VS AND OUTPUT. ORDERS TO PROVIDED ADDITIONAL 500 MLS LR BOLUS AND INCREASE FLUIDS TO 150 ML/HR.
--- NOTE | 2021-10-21 02:24 | NUR ---
PT CALLED, NEEDED BEDSIDE TABLE CLOSER. REPLACED CPOX, CELL PHONE PLACED ON BEDSIDE TABLE. NO OTHER NEEDS AT THIS TIME.
--- NOTE | 2021-10-21 03:00 | NUR ---
PATIENT CONTINUES TO REPORT PAIN IN CABA WITH MOVEMENT. VERY CAREFUL TO NOT ALLOW CABA TO BE MOVED AT ALL. PATIENT HOWEVER MOVES HER LEGS FREQUENTLY IN BED IN A WAY THAT FREQUENTLY RESULTS IN THE CABA TUBING BEING TANGLED WITH HER LEGS. PATIENT ENCOURAGED TO BE CAREFUL WITH CABA TUBING AND CALL FOR ASSIST.
--- NOTE | 2021-10-21 04:30 | NUR ---
PATIENT REQUEST HER LIGHTS BE TURNED BACK ON. PATIENT HAS NOT SLEPT THAT THIS RN HAS NOTICED. STAFF IN ROOM FREQUENTLY FOR IV ALARM DUE TO PATIENT BENDING HER ARM WHILE USING CELLPHONE. PATIENT DENIES ANY NEEDS AND IS ENCOURAGED TO REST. CALL LIGHT IN REACH. OUTPUT IMPROVED GREATLY, COLOR IS MANAGER ANALYTICAL YELLOW THAN PREVIOUSLY AND HOURLY OUTPUT AROUND 100 MLS.
--- NOTE | 2021-10-21 05:50 | NUR ---
PATIENT REQUEST TO SIT ON BEDPAN. PATIENT DOES THIS FOR SEVERAL MINS AND DECIDES IT WAS JUST GAS. PATIENT PROVIDED WITH MENU AND ASSISTED TO MAKE MENU CHANGES. PATIENT FEELS WELL AND ASK MORE THAN ONCE IF SHE CAN GO HOME TODAY. ENCOURAGED PATIENT TO DISCUSS WITH MD. PATIENT DECLINES OTHER NEEDS. CALL LIGHT IN REACH.
--- NOTE | 2021-10-21 06:44 | NUR ---
CABA EMPTIED. PATIENT RESTING IN BED USING CELLPHONE. IV FLUIDS PER ORDER, SITE WNL.
--- NOTE | 2021-10-21 07:50 | NUR ---
Spoke with Mary. She cont. to live in a mobile home without steps. She is . A friend has been helping her with cleaning, shopping, and house hold tasks. She has financial issues and is behind on her electricity by $700. She has used food fraser in the past. She agrees for a needs assessment from [employer] and I will call and request. She does not think she qualifies for services. Her monthly income is $1800. I will call to check if she qualifies for food stamps. She does not want to discuss placement to an assisted living. Pt plans on dc to home when cleared medically. She would like Nadia Silverio added as her emergency contact. Will notify admitting.
--- NOTE | 2021-10-21 08:00 | NUR ---
PT SITTING UP IN BED REQUESTING BREAKFAST. STATES HER CABA CATHETER CONTINUES TO BOTHER HER, BUT NO OTHER REQUESTS OR CONCERNS AT THIS TIME. PT REPOSITIONED IN BED AND HOB ELEVATED FOR BREAKFAST. PT ALERT, ORIENTED, STABLE, RESPIRATIONS EVEN AND UNLABORED. NO OTHER REQUESTS AT THIS TIME.
--- NOTE | 2021-10-21 09:15 | NUR ---
PT REPORTS VALDERRAMA, TYLENOL GIVEN. SCD'S PLACED ON PT PER DR SILVERIO'S ORDERS. PT ATE 100% BREAKFAST, IS SITTING UP IN BED, INTERMITTENTLY TALKING ON PHONE. PT HAS NO NEW REQUESTS. WARM BLANKETS GIVEN.
--- NOTE | 2021-10-21 10:00 | NUR ---
Called and spoke with Rolly from [facility]. Updated to needs for Mary and her income. She states 1 person house hold can earn $2300 a month. She will notify the watch caser in [place] and request a needs assessment. She feels pt will qualify for utilities and also meal delivery if she desires. She asked if pt has been given a shut off notice, I let her know pt spoke with the utility company yesterday and they had requested she pay $300 when she recieves her SS.
--- NOTE | 2021-10-21 11:06 | NUR ---
PT UP TO BSC WITH TWO PERSON STANDBY ASSIST. PT HAD SMALL, FORMED, DARK BROWN BM. PT ASSISTED TO WIPE AND BACK INTO BED. DESITIN POWDER APPLIED UNDER THE BREASTS, PANNUS, AND IN THE GROIN FOLDS. CLEAN GOWN AND LINENS PROVIDED. PT WASHED OWN FACE, AND BRUSHED HER TEETH. DENTURE CREAM PROVIDED. PT REQUESTED AND GIVEN WARM BLANKETS. PT NOW SITTING UP IN BED, CALL LIGHT WITHIN REACH, NO OTHER REQUESTS AT THIS TIME.
--- NOTE | 2021-10-21 11:44 | EKG ---
[facility] [address] [facility] [place] [address] Signed Sinus tachycardia Left axis deviation Inferior infarct , age undetermined Anterolateral infarct (cited on or before 25-OCT-2016) Abnormal ECG When compared with ECG of 25-MAY-2021 15:19, Inferior infarct is now present Questionable change in initial forces of Lateral leads Confirmed by MALLORY SILVERIO MD ([id number]) on 10/21/2021 11:44:15 AM Electronically Signed By: MALLORY SILVERIO MD 10/21/21 1144 PATIENT NAME: TREE GARCIA Electrocardiogram DATE OF : 44 PHYSICIAN: MALLORY SILVERIO MD REPORT #: [id number] REPORT IS CONFIDENTIAL AND NOT TO BE RELEASED WITHOUT AUTHORIZATION
--- NOTE | 2021-10-21 13:30 | NUR ---
PT WORKING WITH PHYSICAL THERAPY AT THIS TIME.
--- NOTE | 2021-10-21 14:42 | NUR ---
PT RESTING IN BED, AWAKEN TO MY VOICE. PT SOMEWHAT SARCASTIC-WHICH IS HER NORMALLY. PT WOULD LIKE TO SEE , WILL INFORM FR CLARK. GAVE BLESSING AND WILL FOLLOW NEEDED
[2021-10-21] MEDS ORDERED: PAROXETINE HCL20 MG PO (15:31)
--- NOTE | 2021-10-21 15:35 | NUR ---
PATIENT HAD CRITICAL LAB RETURN OF BLOOD CULTURES GRAM NEG WILLIE IN ANAROBIC AND AEROBIC BOTTLES. PATIENTS TEMP ALSO NOW NOTED TO BE 101.1. NEW ORDERS FOR 2 SETS BLOOD CULTURES AT THIS TIME PER MD GHOSH.
--- NOTE | 2021-10-21 17:02 | NUR ---
PT'S CBG CHECKED, 134, WILL DEFER INSULIN AT THIS TIME. PT REQUESTED AND GIVEN TYLENOL FOR FEVER/HEADACHE. REQUESTING TO SEE DR GHOSH. EXPLAINED TO PT THAT DR GHOSH WILL BE BY TO SEE HER SOON SHE IS AVAILABLE, POSSIBLY NOT UNTIL TOMORROW MORNING. PT STATES "UHH-HUHH YOU'RE JUST LYING FOR HER". EXPLAINED TO THE PT THAT THE HOSPITALIST IS VERY BUSY SEEING PTS ON 2 UNITS, AND ALSO ADMITTING PT'S TO HER SERVICE FROM THE ED. PT APPEARED TO UNDERSTAND THIS CONCEPT. PT REQUESTING PORTFOLIO ACCOUNTANT FOR HER TABLET AND DINNER. PORTFOLIO ACCOUNTANT FOUND, REPORTED DINNER WILL BE AVAILABLE AT APPROX 1700. PT ALERT, ORIENTED, AND STABLE. RESPIRATIONS EVEN AND UNLABORED. NO ACUTE DISTRESS NOTED.
--- NOTE | 2021-10-21 20:13 | NUR ---
PT UPT TO BSC WITH SBA. PT IS WEAK BUT ABLE TO BARE OWN WEIGHT. PT DENIES PAIN. PT DENIES NEEDS AT THIS TIME.
--- NOTE | 2021-10-21 21:27 | NUR ---
PT UOP HAS BEEN 25-30CC. UPDATED DR. GHOSH, WILL CONTININUE TO MONITOR UOP. GABAPENTIN REQUESTED BY PT, MEDICATION ORDERED PER DR. GHOSH.
--- NOTE | 2021-10-22 00:46 | NUR ---
PT SLEEPING, VSS. UOP MAINTAINING BETWEEN 25-35cc/HR. MAINTENACNE FLUIDS INFUSING PER ORDERS. WILL CONININUE TO MONIOTR.
--- NOTE | 2021-10-22 02:58 | NUR ---
PT UP TO BSC WITH SBA. COMPLAINS OF 8/10 HEADACHE, PRN TYLENOL ADMINISTERED.
--- NOTE | 2021-10-22 03:09 | NUR ---
PT TEMP 100.3 AXILLARY. PRN TYLENOL RECENTLY ADMINISTERED. WILL CONITNIUE TO MONITOR.
--- NOTE | 2021-10-22 04:11 | NUR ---
PT RESTING, LIGHT SNORING, WAKES EASILY TO VOICE. TEMP REMAINS ELEVATED AT 100.6 AXILLARY 1 HOUR POST PRN TYLENOL. PT REPORTS IMPROVED HEADACHE. DENIES NEEDS AT THIS TIME. VSS. NO CHANGE IN HEAD TO TOE ASSESSMENT FROM PRIOR ASSESSMENT. WILL CONTINUE TO MONITOR.
--- NOTE | 2021-10-22 08:20 | NUR ---
Updated Mary to discussion with [facility]. Let her know they will contact her next week. Pt would like meals on wheels if they are available to her.
--- NOTE | 2021-10-22 08:28 | NUR ---
Lying in bed with eyes closed, wakes to staff saying her name. Assessment completed. Repositioned in bed. Glucose taken, AM medications administered and breakfast provided. When asked patient where she is, she states "usp" does not answer further where she is, focuses on breakfast. Denies pain at this time. Call light in reach, bed rails up X2.
--- NOTE | 2021-10-22 08:28 | NUR ---
MED REC COMPLETE
--- NOTE | 2021-10-22 09:55 | NUR ---
Up to commode for bowel movement. Clear mucous noted in commode, no stool at this time. Returns to bed, repositioned with 2 staff.
--- NOTE | 2021-10-22 11:53 | NUR ---
PT RESTING IN BED-CM AMIE HAD JUST LEFT. PT WOULD LIKE VISIT FROM TODAY. INFORMED PT THAT SHE CAN NOW VIEW [employer] ON TV IN . I NOTIFIED , WILL FOLLOW NEEDED
--- NOTE | 2021-10-22 16:45 | NUR ---
REPORT TO Andrew SHEFFIELD RN. PATIENT WHEELED TO ROOM 112 FROM CCU ROOM 128 IN BED.
--- NOTE | 2021-10-22 16:59 | NUR ---
Patient arrived to medical floor from CCU. IV fluids restarted per provider order. Patient a&ox4, vital signs are stable. Dinner ordered for patient at this time. Patient denies pain and or distress. No current needs. Pt oriented to room and call light.
--- NOTE | 2021-10-22 19:46 | NUR ---
AWAKE, EATING, NO C/O PAIN OR DISTRESS, ON ROOM AIR, TELE#7 SINUS TACHY. CALL LIGHT AT HANDS REACH
--- NOTE | 2021-10-22 20:30 | NUR ---
IN TO ASSIST PT UP TO THE BSC, 1PA PIVOT WITH FWW, PT UNSTEADY AT FIRST, BACK TO BED, BED ALARM SET, BOOSTED IN BED
--- NOTE | 2021-10-22 21:12 | NUR ---
c/o h/a, medicated with 1 Tylenol 325mg po. helped with repositioning in bed. IVF infusing
--- NOTE | 2021-10-22 23:30 | NUR ---
PT CALLED, DROPPED CELL PHONE, ASSISTED, PT THEN WANTS TO PROVIDE BREAKFAST ORDER, THIS SIDE PANEL PADDER TOOK ORDER, WILL CALL FOR PT ONCE KITCHEN OPENS
--- NOTE | 2021-10-22 23:49 | NUR ---
CALL LIGHT ON, PT REQUESTED TO BOOSTED IN BED, PT ABLE TO ASSIST THIS SWINE NUTRITIONIST, WITH BED PLACED IN [place], BED ALARM RESET
--- NOTE | 2021-10-22 23:55 | NUR ---
CALL LIGHT ON AGAIN, PT NEEDED BEDSIDE TABLE CLOSER, PROVIDED
--- NOTE | 2021-10-23 00:35 | NUR ---
PT ASSISTED UP TO THE BSC, IV ALARMING, RN IN TO CHECK, PT REQUESTING PAIN MED, RN CHECKING WHAT IS AVALIBLE, PT BACK TO BED, BOOSTED, BED ALARM ON, NO FURTHER NEEDS AT THIS TIME
--- NOTE | 2021-10-23 00:46 | NUR ---
MEDICATED WITH ULTRAM 25MG PO C/O 03/02 BACK AND LEG PAIN. COOPERATIVE, REPOSITINED IN BED. IVF INFUSING W/O PROBLEMS
--- NOTE | 2021-10-23 01:40 | NUR ---
EYES CLOSED, NO DISTRESS, ONROOM AIR, FLUIDS AND CALL LIGHT AT HANDS REACH
--- NOTE | 2021-10-23 02:24 | NUR ---
up to bsc, 1pa/fww, unsteady gait, voided and had small bm. back to bed, w davin, tolerated well. on room air, ivf infusing, used call light, bed alarm on. pt alert to self,
--- NOTE | 2021-10-23 03:30 | NUR ---
IN TO ASSIST PT WITH BSC, 1PA PIVOT WITH FFW, BACK TO BED, BED ALARM SET
--- NOTE | 2021-10-23 03:35 | NUR ---
up to BSC with LICENSED FUNERAL DIRECTOR's help, voided, no bm. back to bed. see LICENSED FUNERAL DIRECTOR notes
--- NOTE | 2021-10-23 04:39 | NUR ---
used call light, up to br, voided, passed gas, back to bed, 1pa/fww, unsteady gait, pivots to bsc. tolerated well, back to bed, helped with repositioning. tolerating sips of fluids, no emesis. no further c/o pain. Coop with vitals and assessment.
--- NOTE | 2021-10-23 04:53 | NUR ---
pt has been taking small naps, awake most of this shift, was irritable at begining of shift, improved mood, calmer and follows instructions better. On room air, clear lungs, tele#7 in place, sr to st at times, denies CP or sob. 1pa/fww pivots to BSC, has voided QS and had a bm. helpes with repositioning, unsteady gait, bed alarm on for fall precautions. IVf infusing w/o problems scds off at this time right now for her requests. has been medicated per c/o back pain/h-a/legs pain with ultram and tylenol, effective. currently resting, eys closed, no distress
--- NOTE | 2021-10-23 07:37 | NUR ---
Ultram 25mg po admin for head/back pain.
--- NOTE | 2021-10-23 07:48 | NUR ---
Patient awake watching tv, no distress. Patient recently up to void, q/s urine output. Patient reports she slept well last night. [place] juice and snack provided for reported blood sugar of 77. Patient has no distress at this time. IV site patient, fluids infusing per provider order. Personal supplies and call light within reach.
--- NOTE | 2021-10-23 08:27 | NUR ---
patient in bed resting, offered to her up to the chair for breakfast, patient refused. blood sugar checked and reported to the nurse. call light within reach no further needs at this time.
--- NOTE | 2021-10-23 15:13 | NUR ---
Patient resting in bed, eyes closed, respirations even and non labored. Patient has no notable distress. Personal supplies and call light within reach.
--- NOTE | 2021-10-23 15:53 | NUR ---
Ultran 25mg po admin for reports of 4/10 back pain.
--- NOTE | 2021-10-23 19:00 | NUR ---
SHIFT REPORT RECEIVED FROM DAYSHIFT TITO ISAAC AT BEDSIDE. pt RESTING IN BED WITH EYES CLOSED, RR EVEN AND UNLABORED. NO DISTRESS NOTED. BED ALARM TURNED ON FOR SAFETY AND CALL LIGHT IN REACH.
--- NOTE | 2021-10-23 19:45 | NUR ---
IN TO ASSIST PT UP TO THE BSC, 1PA FWW PIVOT, WARM BLANKET GIVEN, NO FURTHER NEEDS AT THIS TIME, BED ALARM IS SET
--- NOTE | 2021-10-23 21:15 | NUR ---
IN TO ASSIST PT OFF OF THE BSC, BACK TO BED, VS DONE, ACCU CHECK COMPLETE, FRESH ICE WATER, BED ALARM ON
--- NOTE | 2021-10-23 21:44 | NUR ---
assessment complete, scheduled meds given-see emar. pt awake and resting in bed. vss, pt on ra. rr even and unlabored. pt interactive with blast furnace checker and jokes. denies pain and nausea. iv sites x3 wnl, iv abx infusing as directed. bed alarm on for safety after being boosted in bed. call light in reach.
--- NOTE | 2021-10-23 22:05 | NUR ---
IN TO ASSIST RN WITH BOOSTING PT IN BED
--- NOTE | 2021-10-23 23:30 | NUR ---
ASSISTED TO BSC, BACK TO BED, ALARM SET
--- NOTE | 2021-10-23 23:56 | NUR ---
pt AWAKE AND RESTING IN BED, ON RA. RR EVEN AND UNLABORED. NO DISTRESS OR NEEDS VERBALIZED. CALL LIGHT IN REACH. BED ALARM REMAINS ON FOR SAFETY.
--- NOTE | 2021-10-24 00:55 | NUR ---
PT ASSISTED TO BSC, PIVOT FWW, C/O HEADACHE, INFORMED RN
--- NOTE | 2021-10-24 01:01 | NUR ---
assisted PT back from bsc to bed, bed alarm on for safety. prn tylenol given for 3/10 pain r/t headache, call light in reach. no further needs.
--- NOTE | 2021-10-24 02:50 | NUR ---
PT ASSISTED TO AND FROM BSC, SBA FWW, FRESH ICE PROVIDED FOR WATER CUP
--- NOTE | 2021-10-24 03:04 | NUR ---
assessment complete, no acute changes. pt awake and resting in bed, playing on her ipad. no needs or concerns verbalized, call light in reach and bed alarm on. iv sites x3 wnl, all saline locked.
--- NOTE | 2021-10-24 04:50 | NUR ---
PT UP TO TRY AN VOID, UP TO BSC, SMALL AMT, BACK TO BED, VS DONE, NO FURTHER NEEDS
--- NOTE | 2021-10-24 05:50 | NUR ---
IN TO ASSIST PT TO THE BSC, PT TAKES SOME TIME TO VOID, GOT PT BACK TO BED, NO FURTHER NEEDS AT THIS TIME
--- NOTE | 2021-10-24 06:31 | NUR ---
ROUNDED ON pt, pt RESTING IN BED ON HER LEFT SIDE. BED ALARM ON AND CALL LIGHT IN REACH. RR EVEN AND UNLABORED.
--- NOTE | 2021-10-24 07:25 | NUR ---
Patient sleeping in bed, eyes closed, respirations even and non labored. Patient has no notable distress. Personal supplies and call light within reach.
--- NOTE | 2021-10-24 14:01 | NUR ---
pt repositioned at this time and medicated for pain at this time. Ultram 25mg po at this time.
--- NOTE | 2021-10-24 18:04 | NUR ---
Pt ate a sandwich for dinner due to she did not like what was set up for dinner. She re the sandwich well.
--- NOTE | 2021-10-24 18:42 | NUR ---
Pt has been up to the bathroom had bm x3 liquid stools yellow in color, but no smell.
--- NOTE | 2021-10-24 19:05 | NUR ---
SHIFT REPORT RECEIVED FROM DAYSHIFT TITO BRICENO. pt AWAKE AND RESTING IN BED, NO NEEDS OR CONCERNS VERBALIZED. BED ALARM REMAINS ON FOR SAFETY. CALL LIGHT IN REACH.
--- NOTE | 2021-10-24 19:30 | NUR ---
SBA PATIENT CALLED TO USE THE BATHROOM. ASSISTED IN NEVAEH WIPES. CHANGED PULL UPS. PATIENT IS BACK IN BED. NO OTHER NEEDS AT THIS TIME. BED ALARM FOR SAFETY.
--- NOTE | 2021-10-24 21:40 | NUR ---
SBA USING WALKER TO THE BATHROOM AND BACK TO BED. HELPED IN NEVAEH WIPES. V/S AND I&O'S AND BLOOD SUGAR CHECK DONE AND RECORDED. PRIMARY RN WAS IN THE ROOM.
--- NOTE | 2021-10-24 21:45 | NUR ---
ASSESSMENT COMPLETE, SCHEDULED MEDS GIVEN SEE EMAR. IV SITES X3 WNL, SALINE LOCKED. IV ABX INFUSING VIA RIGHT AC DIRECTED. pt DENIES PAIN AND NAUSEA. REDDENED AREA TO NEVAEH AREA, SCHEDULED DESENEX POWDER IN PLACE WITH CLEAN ATTENDS. NO FURTHER NEEDS, CALL LIGHT IN REACH. BED ALARM ON FOR SAFETY.
--- NOTE | 2021-10-24 22:41 | NUR ---
DR GHOSH UPDATED ON pt'S REPORTS DIARRHEA ON DAYSHIFT (3-4), YELLOW AND LOOSE IN APPEARANCE. NO NEW ORDERS pt WAS GIVEN LACTULOSE ON DAYSHIFT.
--- NOTE | 2021-10-25 00:03 | NUR ---
ROUNDED ON pt, pt AWAKE AND RESTING IN BED. ON RA, RR EVEN AND UNLABORED. BED ALARM ON FOR SAFETY AND CALL LIGHT IN REACH.
--- NOTE | 2021-10-25 00:31 | NUR ---
CALL LIGHT ANSWERED, pt ASKING FOR IV SITE TO BE "TAPED DOWN MORE". pt HAS 3 IV SITES, IV SITE TO RIGHT AC DC'D, CATHETER TIP INTACT. BLE ELVATED IN BED WITH PILLOW. NO FURTHER NEEDS, CALL LIGHT IN REACH.
--- NOTE | 2021-10-25 01:02 | NUR ---
CALL LIGHT ANSWERED, pt UP SBA WITH FWW TO VOID AND BACK IN BED. pt PASSING GAS. REPORTED SOME DIZZINESS WHILE AMBULATING BACK TO BED, RESOLVED AFTER BEING BOOSTED IN BED AND REPOSITIONED, WILL MONITOR. BED ALARM ON FOR SAFETY AND CALL LIGHT IN REACH.
--- NOTE | 2021-10-25 02:00 | NUR ---
OFFERED BEDSIDE COMMODE DUE TO C/O DIZZINESS WHEN UP. PATIENT VOIDED 100ML. PATIENT IS BACK IN BED. NO OTHER NEEDS AT THIS TIME. BED ALARM REMAIN ON.
--- NOTE | 2021-10-25 02:44 | NUR ---
PATIENT CALLED TO USE THE BEDSDIE COMMODE. VOIDED 50ML. PATIENT IS BACK IN BED. BED ALARM ON. CALL LIGHT WITHIN REACH.
--- NOTE | 2021-10-25 03:42 | NUR ---
CALL LIGHT ANSWERED, pt UP SBA WITH FWW TO BSC. pt STEADY ON FEET AND DENIED DIZZINESS. VS COLLECTED AND STABLE BEFORE AMBULATION. BED ALARM BACK ON. PRN TYLENOL GIVEN FOR 8/10 "THROBBING" PAIN R/T HEADACHE. NO FURTHER NEEDS, CALL LIGHT IN REACH.
--- NOTE | 2021-10-25 07:10 | NUR ---
UP TO BEDSIDE COMMODE 1PA USING WALKER ANDBACK TO BED. BED ALARM ON FOR SAFETY. NO OTHER NEEDS AT THIS TIME. CALL LIGHT WITHIN REACH.
--- NOTE | 2021-10-25 08:05 | NUR ---
Pt uses call light to request help to bedside commode, 1 person assist. Drowsy this morning. No difficulty voiding.
--- NOTE | 2021-10-25 08:29 | NUR ---
RN IN ROOM TO ADMINISTER SCHEDULED MEDS. PT AWAKE AND ALERT IN BED EATING BREAKFAST. PT DENIES NEEDS CURRENTLY. CALL LIGHT IN REACH.
--- NOTE | 2021-10-25 09:23 | NUR ---
PATIENT IN BED AT THIS TIME. VITALS AND I&O'S CHARTED. WARM WASH CLOTH GIVEN. PATIENT REFUSED ORAL CARE AND SHOWER. CALL LIGHT IN REACH. NO FURTHER NEEDS AT THIS TIME.
--- NOTE | 2021-10-25 09:26 | NUR ---
PATIENT UP TO COMMODE TO VOID, SBA WITH FWW, BACK TO BED. WARM BLANKET PROVIDED, CALL LIGHT WITHIN REACH.
--- NOTE | 2021-10-25 10:30 | NUR ---
Call light answered, pt requests to use BR, void and BM. Linens changed. Back to bed at this time, warm blankets provided. No other needs. Call light in reach
--- NOTE | 2021-10-25 11:00 | NUR ---
Spoke with pt. Denies needs.
--- NOTE | 2021-10-25 11:13 | NUR ---
RN IN ROOM TO ASSESS PT. PT ALERT AND ORIENTED, FIESTY WITH CONVERSATION BANTER. SHE DENIES PAIN AT THIS TIME. SHE HAS BEEN AMBULATING IN ROOM TO THE BATHROOM TO VOID FREQUENTLY TODAY. POWDER APPLIED TO FOLDS AFTER CLEANING WITH WIPES AND AIR DRYING. ASSESSMENT AND VS WNL. OT IN ROOM TO WORK WITH PT.
--- NOTE | 2021-10-25 13:29 | NUR ---
VITALS DONE, NO FURTHER NEEDS. PATIENT IN BED RESTING. CALL LIGHT IN REACH.
--- NOTE | 2021-10-25 14:06 | NUR ---
PT RESTING IN BED, RATHER LETHARGIC. ASKED IF PT WOULD LIKE FR CLARK TO VISIT TODAY. PT SAID YES BECAUSE HER BUILDER OPERATOR WON'T. CONNECTED WITH FR CLARK. GAVE PT ENCOURAGEMENT. WILL FOLLOW
--- NOTE | 2021-10-25 14:10 | NUR ---
PT IN HALLWAY WORKING WITH PT.
--- NOTE | 2021-10-25 14:53 | NUR ---
Verbal order from Dr Ji to keep IV site at this time as it is C/D/I, no redness or infiltration, dressing intact.
--- NOTE | 2021-10-25 15:51 | NUR ---
RN IN ROOM TO ASSESS PT AND ADMINISTER SCHEDULED MEDS. PT DENIES PAIN AT THIS TIME - RESTING IN BED WITH EYES OPEN. STATES SHE IS VOIDING FREQUENTLY BUT WITHOUT PAIN. ASSESSMENT AND VS WNL. CALL LIGHT IN REACH.
--- NOTE | 2021-10-25 17:58 | NUR ---
RN IN ROOM TO ADMINISTER SCHEDULED MEDICATIONS. PT SITTING IN CHAIR EATING DINNER. DENIES PAIN AT THIS TIME. STATES SHE LIKED DINNER - FINALLY. WARM WASHCLOTH PROVIDED TO WASH HANDS. BACK TO BED REQUESTED. CALL LIGHT IN REACH.
--- NOTE | 2021-10-25 18:15 | NUR ---
PATIENT IN BED RESTING AT THIS TIME. VITALS AND I&O'S CHARTED. CALL LIGHT IN REACH. NO FURTHER NEEDS AT THIS TIME.
--- NOTE | 2021-10-25 19:51 | NUR ---
REPORT RECEIVED FROM TITO AGUILA AND TITO SELLERS. pt RESTING IN BED AWAKE. USING CALL LIGHT RNS ENTER ROOM. MINIMAL ASSIST TO SIDE OF BED, SBA WITH FWW TO RESTROOM FOR VOID. TITO AGUILA REMAINS IN ROOM.
--- NOTE | 2021-10-25 21:30 | NUR ---
pt ASSESSMENT COMPLETE. pt RESTING IN BED, DENIES TOILETING NEEDS. pt DENIES PAIN AT REST. IV SITES FLUSHED WNL. IV ANTIBIOTIC INFUSING ORDERED. SCHEDULED MEDICATIONS ADMINISTERED. CBG WNL. VSS. CALL LIGHT IN REACH.
--- NOTE | 2021-10-25 22:00 | NUR ---
IV ANTIBIOTIC COMPLETE. SBA TO RESTROOM WITH FWW. pt TRYING TO HAVE BM, VERBALIZES UNDERSTANDING TO USE CALL LIGHT WHEN FINISHED.
--- NOTE | 2021-10-25 23:30 | NUR ---
TITO MCKENNA IN ROOM ASSISTED pt TO RESTROOM AT THIS TIME FOR VOID.
--- NOTE | 2021-10-26 01:08 | NUR ---
CALL LIGHT ANSWERED. 1PA TO BSC DUE TO URGENCY FOR 200 ML CONCENTRATED VOID. pt ATTEMPTED TO WIPE, INSTRUCTED TO WIPE FROM FRONT TO BACK. ASSISTED TO CLEAN UP WITH RN. ATTENDS IN PLACE. pt BACK IN BED WITH CALL LIGHT IN REACH. LIGHTS OFF IN ROOM.
--- NOTE | 2021-10-26 02:10 | NUR ---
PT CALLED TO USE BATHROOM, SBA TO AND FROM TOILET, DEPENDENT ON CLEANING AFTER VOIDING. ONCE IN BED, COVERED PER CHOICE, ALL PERSONAL SUPPLIES WITHIN REACH. CALL LIGHT WITHIN REACH.
--- NOTE | 2021-10-26 03:54 | NUR ---
CALL LIGHT ANSWERED. SBA WITH FWW TO BSC, pt WITH URINARY URGENCY. ATTENDS DRY. ASSISTED WITH WIPING. 300 ML VOID IN BSC. pt BACK TO BED. ASSESSMENT COMPLETE. 1+ EDEMA BLE, LEGS ELEVATED IN BED. CALL LIGHT IN REACH.
--- NOTE | 2021-10-26 05:12 | NUR ---
1PA TO RESTROOM AND BACK TO BED WITH EBENW, HAMILTON FLETCHER ASSIST. pt NOW RESTING IN BED. VSS. CALL LIGHT WITHIN REACH. LIGHTS OFF IN ROOM.
--- NOTE | 2021-10-26 07:20 | NUR ---
Report received from Kandi FRANCIS. Pt resting in bed with eyes closed, respirations even and unlabored. On room air. No distress noted. Will continue plan of care.
--- NOTE | 2021-10-26 08:01 | NUR ---
Rounded on patient who is resting in bed, awake and oriented x4. She reports no needs and states "had a good night". Reviewed plan of care for day and patient is agreeable. Call light in reach.
--- NOTE | 2021-10-26 09:00 | NUR ---
Scheduled medications administered, pt denies needs for PRN. Pt visitor in room, reviewed POC. Pt eats 75% of meal. She has no further needs at this time.
--- NOTE | 2021-10-26 09:53 | NUR ---
PATIENT IN BED, RN IN ROOM AT THIS TIME. VITALS AND I&O'S CHARTED. CALL LIGHT IN REACH. NO FURHTER NEEDS AT THIS TIME.
--- NOTE | 2021-10-26 11:30 | NUR ---
Spoke with Mary. She cont. to decline placements. Plans on dc to home. States she recieved a food stamp card today. Denies other needs. Pt 0830 meeting pt will need to cont. to work with PT as she is not safe walking at this point.
--- NOTE | 2021-10-26 12:05 | NUR ---
Rounded on patient who is resting in bed after ambulating to the bathroom. She states no pain or needs, no SOB or dizziness with exertion. All personal belongings in reach and call light in hand.
--- NOTE | 2021-10-26 13:43 | NUR ---
PATIENT IN BED LOOKING THROUGH PERSONAL MAIL. VITALS AND I&O'S CHARTED. CALL LIGHT IN REACH. NO FURTHER NEEDS AT THIS TIME.
--- NOTE | 2021-10-26 14:10 | NUR ---
PT LAYING IN BED READING. PT SARCASTIC WHICH IS HER BASELINE. ENGAGED IN A BRIEF CONVERSATION. PT ALERT AND FEELING BETTER. THANKFUL HER NEIGHBORS CAME OVER TO GIVE HER ASSISTANCE. GAVE BLESSING, WILL FOLLOW
--- NOTE | 2021-10-26 15:30 | NUR ---
Scheduled medications administered and assessment complete. Pt ambulates to BR SBA, states having no pain or discomfort. Discussed plan of care in detail regarding physical therapy, antibiotics, labwork and monitoring. Pt is agreeable and all questions answered. Pt resting in bed, stable condition with no needs. Call light in reach.
--- NOTE | 2021-10-26 17:49 | NUR ---
PATIENT SITTING IN CHAIR FOR DINNER, SBA FWW. VITALS AND I&O'S CHARTED. FRESH WATER GIVEN. CALL LIGHT IN REACH. NO FURTHER NEEDS AT THIS TIME.
--- NOTE | 2021-10-26 18:21 | NUR ---
Scheduled medication given, pt ambulates to BR and back SBA with no difficulty.
--- NOTE | 2021-10-26 19:30 | NUR ---
REPORT RECEIVED FROM TITO AGUILA. pt RESTING IN BED ON CELL PHONE. NO DISTRESS NOTED. CALL LIGHT UTILIZED BY pt, ASSISTANCE WITH FINDING REMOTE PROVIDED.
--- NOTE | 2021-10-26 20:02 | NUR ---
PT CALLED, SBA TO BATHROOM, INDEPENDENT IN BATHROOM, WASHED HANDS BEFORE AMBULATING WITH FWW TO BED, PUT SELF INTO BED, WITH REMOTE SHE ELEVATED HOB, ONCE SETTLED, PUZZLE BOOK GIVEN. CALL LIGHT WITHIN REACH.
--- NOTE | 2021-10-26 21:25 | NUR ---
pt RESTING IN BED AWAKE, PLAYING ON PHONE. CBG WNL. pt RATES PAIN 5/10 IN BACK AND RIGHT KNEE. pt STATES CHRONIC PAIN. PRN TYLENOL ADMINISTERED. ASSESSMENT COMPLETE. IV SITE FLUSHED WNL, IV ANTIBIOTIC INFUSING ORDERED. pt DENIES TOILETING NEEDS. CALL LIGHT IN REACH.
--- NOTE | 2021-10-26 22:00 | NUR ---
PT IV ALARMING, SALINE LOCKED AT THIS TIME.
--- NOTE | 2021-10-26 22:05 | NUR ---
PT CALLED, COULDN'T FIND HER ICE WATER. MOVED BEDSIDE TABLE CLOSER. NO OTHER NEEDS AT THIS TIME.
--- NOTE | 2021-10-26 23:18 | NUR ---
SBA TO THE BATHROOM AND BACK TO BED. NO OTHER NEEDS. CALL LIGHT WITHIN REACH.
--- NOTE | 2021-10-27 00:08 | NUR ---
CALL LIGHT ANSWERED. SBA WITH FWW TO RESTROOM FOR VOID AND BACK TO BED. pt ABLE TO WIPE SELF INDEPENDENTLY, GAIT STEADY WITH FWW, ABLE TO INDEPENDENTLY GET IN AND OUT OF BED. CALL LIGHT IN REACH. LIGHTS OFF IN ROOM.
--- NOTE | 2021-10-27 00:56 | NUR ---
CALL LIGHT ANSWERED. SBA WITH FWW TO RESTROOM FOR 225 ML VOID. pt BACK IN BED, BLADDER SCAN FOR 23 MLS. CALL LIGHT IN REACH. LIGHTS OFF IN ROOM.
--- NOTE | 2021-10-27 02:02 | NUR ---
CALL LIGHT ANSWERED. SBA WITH FWW TO RESTROOM FOR VOID, DRIBBLING IN ATTENDS AND VOID IN URINE HAT. NEW ATTENDS IN PLACE, pt REQUIRING ASSISTANCE WITH CHANGING ATTENDS. BACK IN BED. ASSESSMENT COMPLETE. pt DENIES ANY PAIN AT THIS TIME. CALL LIGHT IN REACH.
--- NOTE | 2021-10-27 03:13 | NUR ---
CALL LIGHT ANSWERED. SBA WITH FWW TO RESTROOM FOR UNMEASURED VOID AND BACK TO BED. pt INDEPENDENT WITH TRANSFER IN AND OUT OF BED. YOGURT PROVIDED REQUESTED. CALL LIGHT IN REACH.
--- NOTE | 2021-10-27 04:46 | NUR ---
CALL LIGHT ANSWERED. SBA WITH FWW TO RESTROOM FOR VOID AND BACK TO BED. VSS. pt DENIES PAIN. DENIES ANY NEEDS. LIGHTS OFF IN ROOM. CALL LIGHT IN REACH.
--- NOTE | 2021-10-27 04:49 | NUR ---
sba. got up to the bathroom using walker and back to bed. v/s and i&o's taken and recorded.
--- NOTE | 2021-10-27 06:00 | NUR ---
CALL LIGHT ANSWERED. SBA TO RESTROOM WITH FWW AND BACK TO BED AFTER VOID. pt INDEPENDENT WITH TRANSFER IN AND OUT OF BED AND WITH WIPING. BACK IN BED. CALL LIGHT IN REACH.
--- NOTE | 2021-10-27 07:15 | NUR ---
REPORT RECIEVED FROM CIRCULAR DISTRIBUTOR RN, PT RESTING IN BED, CALL LIGHT WITHIN REACH NO NEEDS AT THE MOMENT.
--- NOTE | 2021-10-27 10:07 | NUR ---
PT CALL LIGHT ON. PT REQUESTS ASSISTANCE TO USE THE RESTROOM. STAND BY ASSIST WITH FWW UP TO RESTROOM. PT VOIDS WITHOUT ISSUE. PT PERFORMS SELF NEVAEH CARE. STAND BY ASSIST BACK TO BED. VITAL SIGNS STABLE, MILD TACHY CARDIA NOTED. NO ADDITIONAL REQUESTS OR COMPLAINTS. CALL LIGHT WITHIN REACH. BED RAILS UP. PTS PRIMARY RN UPDATED.
--- NOTE | 2021-10-27 11:24 | NUR ---
RN IN ROOM TO ASSIST PT TO THE BSC, ABLE TO VOID DENIES ANY NEEDS
--- NOTE | 2021-10-27 12:00 | NUR ---
lunch time glucose wnl, no need for treatment. no needs at the moment
--- NOTE | 2021-10-27 12:00 | NUR ---
Spoke with Mary, she cont. to work with PT. Does not feel she is quite ready for dc. Plans to go home this week. Pt declines placement, lives alone. Neighbor across the road will assist.
--- NOTE | 2021-10-27 13:03 | NUR ---
PT ALERT, ORIENTED AND READING IN BED. PT LOOKS AND SOUNDS LIKE SHE IS IMPROVING. PT REQUESTED TO HAVE OTHER SPORTS COACH OR INSTRUCTOR VISIT-WILL INFORM. GAVE BLESSING AND WILL CONTINUE TO FOLLOW
--- NOTE | 2021-10-27 14:10 | NUR ---
pt working with pt at the moment
--- NOTE | 2021-10-27 15:15 | NUR ---
RN IN ROOM TO ADMINISTER 1500 GABAPENTIN, PT AWAKE AND IN BED RESTING COMFORTABLE ASSISTED UP TO THE BATHROOM NO OTHER NEEDS AT THE MOMENT
--- NOTE | 2021-10-27 16:50 | NUR ---
RN IN ROOM TO DO BLOOD GLUCOSE 104, NO SLIDING SCALE PROVIDED PER ORDERS
--- NOTE | 2021-10-27 17:48 | NUR ---
RN IN ROOM TO DO VITAL SIGNS AND i&O PT AWAKE AND IN BED RESTING DENIES ANY NEEDS AT THE MOMENT. CALL LIGHT WITHIN REACH
[2021-10-27] MEDS ORDERED: LACTULOSE10 GM/15 M PO (18:21)
[2021-10-27] MEDS ORDERED: CALCIUM CARBON500 MG PO (18:22)
[2021-10-27] MEDS ORDERED: VITAMIN D21250 MCG PO (18:23)
[2021-10-27] MEDS ORDERED: CEFPODOXIME PR200 MG PO (18:24)
--- NOTE | 2021-10-27 18:56 | NUR ---
RN IN ROOM TO HELP PT UP TO THE BEDISDE COMMOMDE, CLEAN ATTENDS PROVIDED, LINEN CHANGE DONE DUE TO SPILLING TEA
--- NOTE | 2021-10-27 19:15 | NUR ---
SHIFT REPORT RECEIVED FROM DAYSHIFT TITO CAT AT BEDSIDE. pt AWAKE AND RESTING IN BED, LAYING FLAT IN BED AND BLE ELEVATED. pt REPORTS COMFORT AND STATES, "I'M TRYING TO GET MY LEGS LESS SWOLLEN". NO NEEDS OR CONCERNS VERBALIZED, CALL LIGHT IN REACH.
--- NOTE | 2021-10-27 20:15 | NUR ---
IN TO ASSIST PT TO THE BATHROOM, SBA FWW, PT BACK TO BED, VS AND I&Os DONE, NO FURTHER NEEDS AT THIS TME
--- NOTE | 2021-10-27 20:44 | NUR ---
ASSESSMENT COMPLETE, SCHEDULED MEDS GIVEN (SEE EMAR). MEDS GIVEN WITHOUT ISSUE. pt DENIES PAIN AND NAUSEA, BOWEL TONES ACTIVE. DESENEX POWDER GIVEN TO REDDENED AREA TO PANNUS. NO FURTHER NEEDS, CALL LIGHT IN REACH.
--- NOTE | 2021-10-27 21:22 | NUR ---
PT CALLED, SBA TO BR, INDEPENDENT IN BATHROOM, WASHED OWN HANDS, AND BACK TO BED. SCD'S IN PLACE AND ALL PERSONAL SUPPLIES WITHIH REACH.
--- NOTE | 2021-10-27 22:30 | NUR ---
PT UP TO THE TOILET SBA FWW, BACK TO BED
--- NOTE | 2021-10-27 23:20 | NUR ---
IN TO ASSIST PT TO THE TOILET, SBA FWW, BACK TO BED, PT CHATS FOR A LITTLE BIT, NO FURTHER NEEDS AT THIS TIME
--- NOTE | 2021-10-28 00:20 | NUR ---
CALL LIGHT ANSWERED, pt UP SBA WITH FWW TO BATHROOM. INSTRUCTED TO USE CALL LIGHT WHEN FINISHED, pt VERBALIZED UNDERSTANDING. CALL LIGHT IN REACH.
--- NOTE | 2021-10-28 00:26 | NUR ---
PT RECENTLY ASSISTED UP TO THE TOILET BY RN, THIS LICENSED BONDSMAN ASSISTED PT BACK TO BED, SBA FWW, NO FURTHER NEEDS, SCDS IN PLACE
--- NOTE | 2021-10-28 00:46 | NUR ---
pt AWAKE AND RESTING IN BED, ON PHONE. CALL LIGHT IN REACH.
--- NOTE | 2021-10-28 02:28 | NUR ---
ROUNDED ON pt, pt AWAKE AND RESTING IN BED. ON RA, RR EVEN AND UNLABORED. DENIES PAIN AND NAUSEA. IV SITE REMAINS WNL, SALINE LOCKED. NO ADDITIOANL NEEDS, RECENTLY UP TO VOID WITH HELP FROM PATIENT CONSUMER MARKETER. CALL LIGHT IN REACH.
--- NOTE | 2021-10-28 03:59 | NUR ---
CALL LIGHT ANSWERED, pt UP TO VOID AND BACK TO BED. STEADY ON FEET, SBA WITH FWW. NO FURTHER NEEDS, CALL LIGHT IN REACH AND SCD'S ON.
--- NOTE | 2021-10-28 05:10 | NUR ---
IN TO ASSIST PT WITH TOILETING NEEDS, SBA FWW, BACK TO BED, VITALS DONE, NO FURTHER NEEDS
--- NOTE | 2021-10-28 06:35 | NUR ---
ASSISTED pt BACK FROM BATHROOM AND BACK TO BED. STEADY ON FEET, SBA WITH FWW. CALL LIGHT IN REACH AND BED ALARM ON FOR SAFETY.
--- NOTE | 2021-10-28 07:33 | NUR ---
report recieved from caustic cresylate shift superintendent RN, pt up in the bathroom with davon barker, no other needs at the moment
--- NOTE | 2021-10-28 08:37 | NUR ---
RN in room to do morning assessment pt awake and alert in bed, breakfast tray delivered, assisted up to the recliner dheeraj fww, denies pain at the moment, states she is ready to go home, call light within reach no other needs at the moment
--- NOTE | 2021-10-28 09:20 | NUR ---
Ramon Hernandez I havve an order for for PT/OT. She would like to use [facility] as she has used them in the past. I will fax chart. She states she has not heard from [facility]. She then admits she screens her calls and does not answer numbers she does not know. Gave her [facility] number to call. She is now wanting meals on wheels. Asked her to call [facility] as I have already called them and gave them her information. I will fax chart to [facility]. Let her now they are 2 weeks out for seeing pts, but will they will call her and scheduled appt.
--- NOTE | 2021-10-28 10:01 | NUR ---
DR Myrick order for DC , pt unable to find a ride will need a care ride, chief warden notified.
--- NOTE | 2021-10-28 11:25 | NUR ---
work study student assisted with getting dressed, IV removed with catheter in tact, packed up patient's belongings. Nurse discussed discharge instructions, patient understood instructions and denied any questions. Ordered a ham sandwich with juice before leaving. States ride will be here at noon.
--- NOTE | 2021-10-28 13:20 | NUR ---
Face sheet, referreral, dc summary, H&P, PT/OT notes faxed to [facility].
== END 2021-10-28 12:10 | disposition home health service (06) | DRG 872 ==
LOC: ED 22:29 → CCU 22:31 → MS 10-22 17:45
PROVIDERS: ADMIT Internal Medicine; ATTEND Internal Medicine
DX: A41.51 Sepsis due to Escherichia coli [E. coli] (principal); E87.1 Hypo-osmolality and hyponatremia; N30.90 Cystitis, unspecified without hematuria; K76.0 Fatty (change of) liver, not elsewhere classified; E83.51 Hypocalcemia; Z20.822 Contact with and (suspected) exposure to COVID-19; R65.20 Severe sepsis without septic shock; E55.9 Vitamin D deficiency, unspecified; R29.6 Repeated falls; D64.9 Anemia, unspecified; K74.60 Unspecified cirrhosis of liver; Z88.6 Allergy status to analgesic agent; Z91.018 Allergy to other foods
CPT/HCPCS: 36415; 51701; 70450; 71045; 72125; 72131; 80048; 80053; 81001; 82140; 82306; 83036; 83605; 83735; 85025; 85060; 86850; 86900; 86901; 86922; 87040; 87088; 87186; 93005; 93010; 97110; 97116; 97161; 97165; 97530; 97535; 99285-25; A9270; C9803; G0378; J0696; J7121; U0003

== ENCOUNTER 2021-11-07 19:01 | Emergency (ER) | payer MEDICARE ==
[~2021-11-07] VITALS: Ht 162.6 cm; Wt 87.5 kg
[~2021-11-07 19:01] MED LIST changes: +CALCIUM CARBON500 MG PO; +CEFPODOXIME PR200 MG PO; +LACTULOSE10 GM/15 M PO; +SPIRONOLACTONE100 MG PO; +VITAMIN D21250 MCG PO
--- OUTSIDE RECORDS SUMMARY | 2021-11-07 19:04 | XMS ---
PreManage Notification: TREE GARCIA Security Climate Change Analyst Events No recent Security Events currently on file CRITERIA MET - [facility] - Has Care Guidelines - 6 ED Visits in 6 Months - [facility] - 2 Visits in 30 Days CARE PROVIDERS KING CAPUTO Nurse Practitioner: Family 03/21/2019-Current PHONE: Unknown RKUNAL GARRIDO Family Medicine 05/26/2021-Current PHONE: [phone] [facility] has no Care Guidelines for this patient. Care History Medical/Surgical 10/21/2021 [facility] Patient has follow up with DR. Garrido on 10/27/2021 10/20/2021 [facility] - Patient is currently established with [facility]. If patient is seen in the ED during business hours. Please contact CHWs at [facility]. Care Recommendation: This patient has had 5 or more Emergency Department visits in the last 12 months.\T\nbsp; Patient requires education on the scope and purpose of the ED as an acute care provider not a Primary Care Provider and should not be utilized for chronic conditions.\T\nbsp; These are guidelines and the provider should exercise clinical judgment when providing care. 07/13/2021 [facility] Frida Li saw patient on 07/07/2021 for left side pain, due to falling at home, and advised if health/pain becomes worse to see PCP or go to ER. No follow up scheduled at this time. [facility] MO[facility] T[facility] NOTE: Visits indicate total known visits. 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 - Nausea with vomiting, unspecified - Fall on same level, unspecified, initial encounter - Hyperlipidemia, unspecified 08/08/2021 20:33 [facility] [place] TYPE: Emergency COMPLAINT: - ABD PAIN DIAGNOSES: - 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 [place] TYPE: Emergency COMPLAINT: - WEAKNESS, HEADACHE DIAGNOSES: - Type 2 diabetes mellitus without complications - Contact with and (suspected) exposure to COVID-19 - Unspecified osteoarthritis, unspecified site - Other half-way (current) drug therapy - Anemia, unspecified - Allergy status to narcotic agent - Weakness - Essential (primary) hypertension - Hyperlipidemia, unspecified 12/01/2020 14:[address] 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 [place] TYPE: Medical Surgical COMPLAINT: - SEVERE SEPSIS, UTI DIAGNOSES: - Unspecified cirrhosis of liver - Severe sepsis without septic shock - Contact with and (suspected) exposure to COVID-19 - Hypocalcemia - Fatty (change of) liver, not elsewhere classified - Hypo-osmolality and hyponatremia - Contact with and (suspected) exposure to COVID-19 - Vitamin D deficiency, unspecified - Allergy to other foods - Cystitis, unspecified without hematuria - Hypocalcemia - Anemia, unspecified - Unspecified cirrhosis of liver - Sepsis, unspecified organism - Repeated falls - Anemia, unspecified - Allergy status to analgesic agent - Sepsis due to Escherichia coli [E. coli] - Hypo-osmolality and hyponatremia - Cystitis, unspecified without hematuria - Fatty (change of) liver, not elsewhere classified - Allergy status to analgesic agent - Vitamin D deficiency, unspecified - Allergy to other foods - Repeated falls - Sepsis due to Escherichia coli [E. coli] - Severe sepsis without septic shock [email or web address]
[2021-11-07] MEDS ORDERED: CEFDINIR300 MG PO (20:41)
[2021-11-08] MEDS ORDERED: PYRIDIUM200 MG PO (05:36)
== END 2021-11-07 21:15 | disposition home or self-care (01) ==
LOC: ED 19:01
DX: N39.0 Urinary tract infection, site not specified (principal); E11.9 Type 2 diabetes mellitus without complications; I10 Essential (primary) hypertension; E78.5 Hyperlipidemia, unspecified; M19.90 Unspecified osteoarthritis, unspecified site; Z79.899 Other long term (current) drug therapy; Z88.5 Allergy status to narcotic agent; Z91.018 Allergy to other foods
CPT/HCPCS: 36415; 80048; 81001; 85025; 99283; J7040

== ENCOUNTER 2021-11-13 10:06 | Emergency (ER) | payer MEDICARE ==
[~2021-11-13] VITALS: Ht 162.6 cm; Wt 87.5 kg
[~2021-11-13 10:06] MED LIST changes: +CEFDINIR300 MG PO; +PYRIDIUM200 MG PO
--- OUTSIDE RECORDS SUMMARY | 2021-11-13 10:08 | XMS ---
PreManage Notification: TREE GARCIA Security Student Career Development Specialist Events No recent Security Events currently on file CRITERIA MET - 6 ED Visits in 6 Months - [facility] - 2 Visits in 30 Days - [facility] - Has Care Guidelines CARE PROVIDERS KING CAPUTO Nurse Practitioner: Family 03/21/2019-Current PHONE: Unknown KRUNAL GARRIDO Family Medicine 05/26/2021-Current PHONE: [phone] [facility] has no Care Guidelines for this patient. Care History Medical/Surgical 10/21/2021 [facility] Patient has follow up with DR. Garrido on 10/27/2021 10/20/2021 [facility] - Patient is currently established with [facility]. If patient is seen in the ED during business hours. Please contact CHWs at [facility]. Care Recommendation: This patient has had 5 or more Emergency Department visits in the last 12 months.\T\nbsp; Patient requires education on the scope and purpose of the ED as an acute care provider not a Primary Care Provider and should not be utilized for chronic conditions.\T\nbsp; These are guidelines and the provider should exercise clinical judgment when providing care. 07/13/2021 [facility] Frida Li saw patient on 07/07/2021 for left side pain, due to falling at home, and advised if health/pain becomes worse to see PCP or go to ER. No follow up scheduled at this time. [facility] T[facility] NOTE: Visits indicate total known visits. 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 - Essential (primary) hypertension - Unspecified osteoarthritis, unspecified site 10/20/2021 22:30 [facility] [place] TYPE: Emergency COMPLAINT: - WEAKNESS 10/18/2021 21:15 [facility] [place] TYPE: Emergency COMPLAINT: - FALL DIAGNOSES: - Type 2 diabetes mellitus without complications - Allergy status to narcotic agent - Essential (primary) hypertension - Unspecified osteoarthritis, unspecified site - Strain of muscle, fascia and tendon of lower back, initial encounter - Other guest services lead (current) 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 therapy - Nausea with vomiting, unspecified - Fall on same level, unspecified, initial encounter - Hyperlipidemia, unspecified 08/08/2021 20:33 [facility] [place] TYPE: Emergency COMPLAINT: - ABD PAIN DIAGNOSES: - Other guest services lead (current) drug therapy - Unspecified osteoarthritis, unspecified site - Allergy status to narcotic agent - Left lower quadrant pain - Essential (primary) hypertension - Hyperlipidemia, unspecified - Type 2 diabetes mellitus without complications 07/09/2021 15:56 [facility] [place] TYPE: Emergency COMPLAINT: - LOWER ABDOMINAL PAIN DIAGNOSES: - Type 2 diabetes mellitus without complications - Hyperlipidemia, unspecified - Other fpc (current) drug therapy - Allergy status to narcotic agent - Essential (primary) hypertension - Lower abdominal pain, unspecified 05/25/2021 14:46 [facility] [place] TYPE: Emergency COMPLAINT: - WEAKNESS, HEADACHE DIAGNOSES: - Type 2 diabetes mellitus without complications - Contact with and (suspected) exposure to COVID-19 - Unspecified osteoarthritis, unspecified site - Other guest services lead (current) drug therapy - Anemia, unspecified - Allergy status to narcotic agent - Weakness - Essential (primary) hypertension - Hyperlipidemia, unspecified 12/01/2020 14:58 [facility] [place] TYPE: Emergency COMPLAINT: - R EYE IRRITATION DIAGNOSES: - Type 2 diabetes mellitus without complications - Hordeolum externum right lower eyelid - Hyperlipidemia, unspecified - Other fpc (current) drug therapy - Essential (primary) hypertension - Allergy status to narcotic agent INPATIENT VISIT TRACKING (12 MO.) 10/21/2021 08:29 [facility] [place] TYPE: Medical Surgical COMPLAINT: - SEVERE [...] coli] - Severe sepsis without septic shock [email or web address]
[2021-11-13] MEDS ORDERED: SPIRONOLACTONE50 MG PO (10:37)
[2021-11-13] MEDS ORDERED: TRAMADOL HCL50 MG PO (10:37)
--- NOTE | 2021-11-17 19:05 | EKG ---
[facility] [address] [facility] [place], [place] [address] Signed Sinus tachycardia Left axis deviation Inferior infarct , age undetermined Possible Anterolateral infarct , age undetermined Abnormal ECG No previous ECGs available Confirmed by MALLORY SILVERIO MD ([id number]) on 11/17/2021 7:04:50 PM Electronically Signed By: MALLORY SILVERIO MD 11/17/21 1905 PATIENT NAME: TREE GARCIA Electrocardiogram DATE OF : 44 PHYSICIAN: MALLORY SILVERIO MD REPORT #: [id number] REPORT IS CONFIDENTIAL AND NOT TO BE RELEASED WITHOUT AUTHORIZATION
== END 2021-11-13 15:35 | disposition home or self-care (01) ==
LOC: ED 10:06
DX: J90 Pleural effusion, not elsewhere classified (principal); E11.9 Type 2 diabetes mellitus without complications; I10 Essential (primary) hypertension; E78.5 Hyperlipidemia, unspecified; M19.90 Unspecified osteoarthritis, unspecified site; Z88.8 Allergy status to other drugs, medicaments and biological substances; Z88.5 Allergy status to narcotic agent; Z79.899 Other long term (current) drug therapy
CPT/HCPCS: 36415; 71045; 71250; 80053; 83880; 84157; 84484; 85025; 85060; 89051; 93005; 93010; 96374; 96375; 99285-25; A9270; J1940; P9047

== ENCOUNTER 2021-11-14 11:06 | Inpatient (IN) | payer MEDICARE ==
[~2021-11-14] VITALS: Ht 162.6 cm; Wt 81.5 kg
[~2021-11-14 11:06] MED LIST changes: +SPIRONOLACTONE50 MG PO
--- OUTSIDE RECORDS SUMMARY | 2021-11-14 11:10 | XMS ---
PreManage Notification: TREE GARCIA Security Director Data Architecture Events No recent Security Events currently on file CRITERIA MET - [facility] - Has Care Guidelines - 6 ED Visits in 6 Months - [facility] - 2 Visits in 30 Days CARE PROVIDERS KING CAPUTO Nurse Practitioner: Family 03/21/2019-Current PHONE: Unknown KRUNAL GARRIDO Family Medicine 05/26/2021-Current PHONE: [phone] [facility] has no Care Guidelines for this patient. Care History Medical/Surgical 10/21/2021 [facility] Patient has follow up with DR. Garrido on 10/27/2021 10/20/2021 [facility] - Patient is currently established with [facility]. If patient is seen in the ED during business hours. Please contact CHWs at [facility]. Care Recommendation: This patient has had 5 or more Emergency Department visits in the last 12 months.\T\nbsp; Patient requires education on the scope and purpose of the ED as an acute care provider not a Primary Care Provider and should not be utilized for chronic conditions.\T\nbsp; These are guidelines and the provider should exercise clinical judgment when providing care. 07/13/2021 [facility] Frida Li saw patient on 07/07/2021 for left side pain, due to falling at home, and advised if health/pain becomes worse to see PCP or go to ER. No follow up scheduled at this time. E.D. VIS[facility] (12 MO.) [facility] TOTAL 9 NOTE: Visits indicate total known visits. 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 - Essential (primary) [...] of lower back, initial encounter - Other group home (current) drug therapy - Nausea with vomiting, unspecified - Fall on same level, unspecified, initial encounter - Hyperlipidemia, unspecified 08/08/2021 20:33 [facility] [place] TYPE: Emergency COMPLAINT: - ABD PAIN DIAGNOSES: - 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 - Unspecified osteoarthritis, unspecified site - Allergy status to narcotic agent - Left lower quadrant pain - Essential (primary) hypertension - Hyperlipidemia, unspecified - Type 2 diabetes mellitus without complications 07/09/2021 15:56 [facility] [place] TYPE: Emergency COMPLAINT: - LOWER ABDOMINAL PAIN DIAGNOSES: - Type 2 diabetes mellitus without complications - Hyperlipidemia, unspecified - Other group home (current) drug therapy - Allergy status to narcotic agent - Essential (primary) hypertension - Lower abdominal pain, unspecified 05/25/2021 14:46 [facility] [place] TYPE: Emergency COMPLAINT: - WEAKNESS, HEADACHE DIAGNOSES: - Type 2 diabetes mellitus without complications - Contact with and (suspected) exposure to COVID-19 - Unspecified osteoarthritis, unspecified site - Other group home (current) drug therapy - Anemia, unspecified - Allergy status to narcotic agent - Weakness - Essential (primary) hypertension - Hyperlipidemia, unspecified 12/01/2020 14:58 [facility] [place] TYPE: Emergency COMPLAINT: - R EYE IRRITATION DIAGNOSES: - Type 2 diabetes mellitus without complications - Hordeolum externum right lower eyelid - Hyperlipidemia, unspecified - 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
--- NOTE | 2021-11-14 17:14 | NUR ---
Patient arrived to the medical floor, a&ox4. Patient on 5L of oxygen per nc, respirations non labored. Patient reports shortness of breath for the last couple of days now. Vitals are stable, afebrile. Patient ate dinner, tolerated well. Patient oriented to room and call light. No current needs. Personal supplies and call light within reach.
--- NOTE | 2021-11-14 17:33 | NUR ---
Patient short of breath, respirations 28/min, sp02 89%. Patient found eating her dinner at time of sob complaint. This RN instructed patient to stop eating and take a braek until she recovers from the sob. Patient positioned to semi-fowlers for better lung expansion, pt improving and less anxious.. Patient encouraged to rest. SP02 90% on 5L. Call light within reach.
--- NOTE | 2021-11-14 18:59 | NUR ---
CALL TO DR. SILVERIO THAT PATIENT WAS NOT TOLERATING ACTIVITY OF FREQUENT BEDPAN AND ATTENDS CHANGES.
--- NOTE | 2021-11-14 19:40 | NUR ---
pt RFA iv sl dc'd, not patent. 2x2 in place.
--- NOTE | 2021-11-14 20:32 | NUR ---
ON 5LNC, NOT CHRONIC. TACHEIPNEIC, ANXIOUS, TACHYCHARDIC, REASSURES, SOB WITH REPOSITIONING NOTED. HOB ELEVATED TO COMOFRT, SATS 92%. LUNGS DIM AND CRACKLY AT BASES, F/C WAS PLACED EARLIER, VOIDING SMALL AMONTS OF YELLOW URINE. ABD ASCITIC, SKIN DRY, SLIGHT JAUNDICED PRESENT. SL RAC PATENT. TOOK MEDS WELL, TOLERATING LIQUIDS, CALL LIGHT AT HANDS REACH. BED ALAMR ON. CONTINUE TO REASSURE SAFETY, DECREASE ANXIETY AND FALL PRECAUTIONS. PT ALERT AND ORIENTED. CALMS DOWN EASILY WITH INSTRUCTIONS. DOOR AND CURTAINS OPEN DUE TO INCREAED ANXIETY.
--- NOTE | 2021-11-14 21:40 | NUR ---
IN TO ASSIST PT UNTO THE BEDPAN, WILL CALL WHEN READY
--- NOTE | 2021-11-14 22:00 | NUR ---
HOB ELEVATED TO HER COMFORT, O2 5LNC, SOB WITH TURNING AND EXERTION, TALKING IN PHONE. SL PATENT, F/C PATENT DRAINING SMALL AMOUNT OF YELLOW URINE, RED NEVAEH AREA, TOLERATINGLIQUIDS WELL, CALL LIGHT AT BEDSIDE
--- NOTE | 2021-11-14 23:00 | NUR ---
PT PROVIDED WITH WATER, BOOSTED IN BED WITH RN HELP, PT THEN PROVIDED BREAKFAST ORDER, NO FURTHER NEEDS AT THIS TIME
--- NOTE | 2021-11-15 00:16 | NUR ---
RESTING, EYS CLOSED, O2 5L NC, CALL LIGHT AT HANDS REACH. F/C PATENT.
--- NOTE | 2021-11-15 03:16 | NUR ---
awakes easily on 5lnc o2, sats 96%, lungs with fine crackles and dim. sob with turning noted, f/c patent, draining dark yellow urine. tolerating liquids . R abd dressing saturated w sanguineous drainage, changed gauze and allevyn applied. cooperative.
--- NOTE | 2021-11-15 04:23 | NUR ---
PT AWAKE, PLAYING ON HER PHONE, C/O UNABLE TO BREATHE. O2 5LNC, SPOT SATS 94%, P109, R 24 AFTER REPOSITIONING SELF IN BED, HOB ELEVATED, LUNGS NO CHAGNES FROM EARLIER, SITTING POSITION IN BED, BED ALARM ON
--- NOTE | 2021-11-15 05:12 | NUR ---
PT ON 5LO2 NC. SATS 94-97%, TACHEIPNEIC AND TACHYCHARDIAC AT TIMES WITH C/O SOB WITH [id number]. LUNGS COARSE WITH CRACKLES T/O AND DIM. ABD LARGE ASCITIC. GOT DRAINED IN ED PRIOR TO ADMIT TO MS. DRESSING R SIDED MID ABD CHAGNED DUE TO SEROUS SATURATION. REPLACED WITH GAUZE AND ALLEVYN. AND TENDER, ASCITIC, JAUNDICED DRY SKIN PRESENT. RED NEVAEH AND VAGINAL AREA. F/C PLACED AT BEGINING OF SHIFT. LIGHT RED STREAKS NOTED IN F/C DRAINAGE. DRAINING QS DARK YELLOW URINE. VERY STIFF AND WEAK LE NOTED. HOB ELEVATED TO HER COMOFRT, TOLERATING LIQUIDS WELL. INCREAED ANXIETY WHEN DOORS CLOSED. WILL KEEP CURTAINS AND DOORS OPEN. SL PATENT. ALERT AND COOPERATIVE,, HAS SLEPT 3-4 HRS THIS SHIFT.
--- NOTE | 2021-11-15 05:32 | NUR ---
PT WAS SWABBED FOR COVID 19
--- NOTE | 2021-11-15 05:51 | NUR ---
on 5lnc, sob with repositioning, drowsy, coop with labs and vitals. sats 99% on 5LNC. tolerating liquids well, f/c with small amount of dark yellow urine
--- NOTE | 2021-11-15 07:25 | NUR ---
REPORT RECEIVD FROM NIGHT RN-ANNEMARIE. PT RESTING IN BED WITH EYES CLOSED, RR EVEN, MODERATLEY LABORED, CALL LIGHT IN REACH.
--- NOTE | 2021-11-15 08:22 | NUR ---
RN IN ROOM TO ASSESS PT AND ADMINISTER SCHEDULED MEDICATIONS. PT WAKES EASILY TO SOUND AND TOUCH. PT AAO TIMES 3. RR 24, [id number] 90'S ON 5L VIA NC. PT WORK OF BREATHING MODERATE WITH ABDOMINAL MUSCLES IN USE DURING EXHALATION. LUNG SOUNDS DIM, MILD COUGH WITH WHEEZE NOTED WITH DEEP BREATH. PT DENIES PAIN AND NAUSEA. ABD DISTENDED, SOFT, NO BRUISING NOTED OTHER THAN AT PUNCTURE SITE - GUAZE AND ALLEVYN OVER SITE. CABA CATH OUTPUT DARK YELLOW WITH BLOOD NOTED IN TUBE. PT REPOSITIONED IN BED - PT HAD STRENGHT TO HELP WITH ARMS USING BED RAILS. PT DENIES FURTHER NEEDS, BED ALARM ON, CALL LIGHT IN REACH.
--- NOTE | 2021-11-15 08:34 | NUR ---
MED REC COMPLETE
--- NOTE | 2021-11-15 10:35 | NUR ---
RN IN ROOM TO ASSESS PT AND ADMINISTER NEW MEDICATIONS ORDERED. MEDICATIONS EXPLAINED TO PTS, ALSO EXPLAINED NEW ORDER FOR FLUID RESTRICTION. WORK OF BREATHING UNCHANGED, PT STATES SHE IS COMFORTABLE IN BED. CALL LIGHT IN REACH. DENIES FURTHER NEEDS. CURTAIN LEFT OPEN PER PT REQUEST.
--- NOTE | 2021-11-15 11:31 | NUR ---
RN IN ROOM TO ROUND ON PT- PT SITTING WITH HEAD OF BED ELEVATED ON BED WANG. PT STATES SHE DOES NOT WANT THE BED WANG REMOVED YET. CALL LIGHT IN REACH.
--- NOTE | 2021-11-15 12:13 | NUR ---
PATIENT UP TO CHAIR, REPORTS THAT HER LEGS ARE FEELING RESTLESS, DENIES NEED FOR TYLENOL.
--- NOTE | 2021-11-15 12:15 | NUR ---
PT C/O LEG CRAMPS, REPOSITIONED PT TO CHAIR FOR MEALS. CALL LIGHT WITHIN REACH, NO ASSISTANCE NEEDED AT THIS TIME.
--- NOTE | 2021-11-15 14:32 | NUR ---
PT ASLEEP, DID NOT DISTURB. WILL CONTINUE TO FOLLOW
--- NOTE | 2021-11-15 15:09 | NUR ---
I was able to meet with Mary and visit with her regarding her care here at the hospital. Mary shares with me that her care has been "very good" while here in the hospital. She feels like the staff answer her call light in a timely manner, and that she is getting an explanations of the medications given. Mary is very determined that she can return home with the continued assistance of her friend "Nadia" who does her shopping for food, picks up her medication, does her laundry and helps her at the house. Mary also relates she is planning on Nadia driving her to her appointments when she is discharged. She shared with me that Nadia lives in [place] but works in [place], and she feels that this situation will work. Mary would also like to have "Meals on Wheels" delivered. A referral will be made with our CHW to see if there are additional resources available for Mary.
--- NOTE | 2021-11-15 15:20 | NUR ---
RN IN ROOM TO ADMINISTER SCHEDULED MEDICAITONS AND ASSESS PT. VS STABLE-IMPROVED SPO2 WITH DIURESIS - TITRATED 02 DOWN TO 3L WITH SPO2 95%. ABDOMEN ASSESSMENT UNCHANGED BUT PT STATES SHE IS MORE COMFORTABLE. PT HAD PREVIOUSLY REPORTED DOUBLE VISION BUT STATES IT RESOLVED. MINI NEURO ASSESSMENT NORMAL. CALL LIGHT IN REACH. DENIES FURTHER NEEDS.
--- NOTE | 2021-11-15 16:43 | NUR ---
MD IN ROOM TO ROUND ON PT. RN ACCOMPANYING. PT VS STABLE WITH DECREASE IN O2 AT 3L VIA NC.
--- NOTE | 2021-11-15 16:58 | NUR ---
RT IN ROOM TO PUT PT ON BIPAP.
--- NOTE | 2021-11-15 17:44 | NUR ---
RN IN ROOM TO PUT CPAP BACK ON PT AFTER DINNER. PT REPOSITIONED IN BED. PT ASLEEP ALMOST IMMEDIATLY AFTER CPAP APPLIED. CPOX ON - 96% SP02 AND P 110. RR 24. CABA OUTPUT INCREASED WITH TOTAL OF 1025, PALE YELLOW. CALL LIGHT IN REACH.
--- NOTE | 2021-11-15 18:50 | NUR ---
RN IN ROOM TO ASSIST PT TO COMMODE. PT HAVING CRAMPS IN LEGS AND REQUESTS BREAK FROM CPAP. PT BACK TO BED AFTER RESTING AT BEDSIDE FOR APROX 10 MIN. CPAP REAPPLIED WITHOUT HEAT. PT EDUCATED AND ENCOURAGED TO LEAVE CPAP ON FOR HEALTH. CALL LIGHT IN REACH, CPOX ON.
--- NOTE | 2021-11-15 19:15 | NUR ---
REPORT RECEIVED FROM TITO SELLERS. pt RESTING IN BED WITH CPAP ON. ENCOURAGED TO STAY ON MASK LONG POSSIBLE. pt C/O DRY MOUTH. OFFERED MOUTH SWABS. SPO2 96% ON CPOX. RR 21. CABA WITH CLEAR YELLOW URINE NOTED IN DRAINAGE BAG, SIGNIFICANT OUTPUT. BED ALARM SET AT THIS TIME.
--- NOTE | 2021-11-15 19:39 | NUR ---
PT HAS VISITERS IN , WOULD LIKE TO BE OFF CPAP TO VISIT, VERIFIED WITH RN, PT MOVED TO O2 NC, NO FURTHER NEEDS AT THIS TIME
--- NOTE | 2021-11-15 20:01 | NUR ---
PATIENT WAS ALERT AND ORIENTED. PATIENT VOICED CANOCERN ABOUR HAVING TO WEAR CPAP AND HAVING A DRY MOUTH. TITO LEAL VOICED THAT WE WOULD BRING HER SOME MOUTH SWABS TO MOISTEN HER MOUTH. CALL LIGHT WITHIN REACH.
--- NOTE | 2021-11-15 22:10 | NUR ---
PATIENT CALLED AND REPORTED FEET CRAMPS. ASSISTED PATIENT TO SIT ON THE EDDGE OF THE BED. FLOAT RN PRESENT IN ROOM. PATIENT IS NOW RESTING IN BED. WARM BLANKET PROVIDED FOR PATIENT'S FEET. NO FURTHER NEEDS NOTED. CALL LIGHT WITHIN REACH. NO FURTHER NEEDS NOTED.
--- NOTE | 2021-11-15 22:45 | NUR ---
pt RESTING IN BED AWAKE. 3L OXYGEN BY NC IN PLACE. ASSESSMENT COMPLETE. CRACKLES AUSCULTATED RLL. SPO2 WNL. pt DENIES SOB. OCCASIONAL COUGH NOTED. EDUCATION PROVIDED REGARDING BIPAP USE. pt AGREEABLE TO TRY WITH SLEEP. BED ALARM ON.
--- NOTE | 2021-11-15 22:48 | NUR ---
PATIENT ALERT AND ORIENTED. PATIENT ON 3 LITERS OXYGEN NASAL CANNULA. VOICES HEADACHE BUT CANNOT RATE PAIN AT THIS TIME. PATIENT WAS GIVEN PAIN RX FOR HEADACHE WITH SIPS OF WATER. DIMINISHED LUNG SOUNDS IN RLQ. GAVE PATIENT EDUCATION ON BPAP AND PATIENT AGREEABLE. PATIENT DENIES NAUSEA. DRESSING IS CLEAN DRY AND INTACT. NO OTHER NEEDS VOICED AT THIS TIME. CALL LIGHT WITHIN REACH.
--- NOTE | 2021-11-15 23:21 | NUR ---
TOOK PATIENT OFF OF 3 L NASAL CANNULA AND PUT ON BIPAP MACHINE. PATIENT RESTING IN BED. NO OTHER NEEDS VOICED AT THIS TIME. CALL LIGHT WITHIN REACH.
--- NOTE | 2021-11-16 00:25 | NUR ---
PATIENT ALARM SOUND. BIPAP OXYGEN HOSE CAME DICONNECTED FROM MOUTH PIECE. GAVE PATIENT EDUCATION ON CONTINUED USE AND PATIENT AGREEABLE. NO OTHER NEEDS VOICED. CALL LIGHT WITHIN REACH.
--- NOTE | 2021-11-16 01:23 | NUR ---
PATIENT REQUESTED THE BIPAB BE TAKEN OFF. REPLACED WITH 3 L NASAL CANNULA. PROVIDED PATIENT EDUCATION AND PATIENT AGREES TO TRY BIPAP AGAIN IN AN HOUR. NO OTHER NEEDS VOICED. CALL LIGHT WITHIN REACH.
--- NOTE | 2021-11-16 02:51 | NUR ---
PATIENT SLOUCHED IN BED WITH LEFT LEG HANGING OVER THE SIDE. PATIENT ABDOMINAL BREATHING, SPO2 91% WITH 3 L OXYGEN NASAL CANNULA IN PLACE. PATIENT AWAKENS TO RN ENTERING ROOM. ASSISTED TO REPOSITION IN BED. BIPAP MASK APPLIED. CALL LIGHT WITHIN REACH.
--- NOTE | 2021-11-16 03:36 | NUR ---
CALL LIGHT ANSWERED. CAP FROM BIPAP UNPLUGGED. BIPAP MACHINE IN PLACE WNL. pt RESTING IN BED WITH EYES CLOSED. DENIES ADDITIONAL NEEDS. CALL LIGHT IN REACH.
--- NOTE | 2021-11-16 05:32 | NUR ---
CALL LIGHT ANSWERED. PATIENT REQUESED BIPAP BE REMOVED. PUT NASAL CANNULA 2 L OXYGEN BACK ON. CABA CATHETER CARE COMPLETED BY TITO SEGAL. ASSESSMENT COMPLETED AT THIS TIME. VSS. NO OTHER NEEDS VOICED AT THIS TIME. CALL LIGHT WITHIN REACH. LAB IN ROOM.
--- NOTE | 2021-11-16 06:40 | NUR ---
PATIENT REQUESTED SNACK BEFORE BREAKFAST. PROVIDED VANILLA PUDDING. NO OTHER NEEDS ADRESSED AT THIS TIME. CALL LIGHT WITHIN REACH.
--- NOTE | 2021-11-16 06:44 | NUR ---
PATIENT TOLERATED ROTATING 2 L NASAL CANNULA AND BIPAP THROUGHOUT THE NIGHT. PATIENT TOLERATING FLUID RESTRICTIONS. DIMINISHED LUNG SOUNDS IN RIGHT LOWER LOBE. VSS. CALLED APPROPRIATELY. PATIENT VOICED WANTING TO EAT AND WAS OFFERED A SNACK BEFOER BREAKFAST. NO OTHER NEEDS VOICED. CALL LIGHT WITHIN REACH.
--- NOTE | 2021-11-16 07:46 | NUR ---
REPORT RECEIVED FROM FANI PERALES. PT RESTING IN BED WITH EYES CLOSED, 02 VIA DC ON. RADIOLOGY IN ROOM TO COMPLETE CXR ORDER.
--- NOTE | 2021-11-16 08:48 | NUR ---
RN IN ROOM TO ADMINISTER SCHEDULED MEDICATIONS. PT BACK FROM CXR - TOLERATED TRANSPORATION IN WHEELCHAIR WITHOUT DIFFICULTY. 02 AT 2L VIA NC , SP02 93%, RR 22. WORK OF BREATHING IMPROVED FROM YESTERDAY. PT DENIES NEEDS AT THIS TIME. CALL LIGHT IN REACH.
--- NOTE | 2021-11-16 11:15 | NUR ---
PT UP TO BSC, WILL CALL WHEN READY TO GET OFF.
--- NOTE | 2021-11-16 11:34 | NUR ---
PT UP TO BSC WITH POSTER BUT UNABLE TO HAVE BM. PT REQUESTS LAXATIVE. ORDER RECEIVED YESTERDAY HOWEVER PT REFUSED AT THAT TIME. DOSE NOW ADMINISTERED. PT DENIES FURTHER NEEDS, CALL LIGHT IN REACH.
--- NOTE | 2021-11-16 13:19 | NUR ---
RN IN ROOM TO ROUND ON PT. PT COMPLAINS OF LEG AND FOOT CRAMPS - IMPROVES WITH MASSAGE. CRAMPS INCREASE WITH LASIX ADMINISTRATION. PT BP DECREASED SIGNIFICANTLY THIS AFTERNOON TO 90/40'S - PT UNSYMPTOMATIC LAYING IN BED. MD NOTIFIED - NO NEW ORDERS. PT DENIES FURTHER NEEDS, CALL LIGHT IN REACH.
--- NOTE | 2021-11-16 13:44 | NUR ---
HAMILTON PEREIRA REQUESTED MY ASSISTANCE IN LOCATED A PLAIN PENCIL FOR PT WITH COLLEEN WAS ABLE TO LOCATE AND GIVE TO STAFF TO PRESENT TO PT. WILL FOLLOW
--- NOTE | 2021-11-16 14:40 | NUR ---
RN IN ROOM TO ASSESS PT AND ADMINISTER SCHEDULED MEDS. PT RESTING WITH EYES CLOSED UPON ENTERING ROOM WAKES EASILY WITH NOISE. URINE OUTPUT INCREASED SINCE LASIX DOSE THIS AM. PT STILL C/O LEG CRAMPS, ENCOURAGED STRETCHING IN BED. ABD LESS FIRM THIS AFTERNOON - NON TENDER ACITIES. BP SOFT, MD AWARE. SPO2 92% ON 2L VIA NC. PT REPORTS SHE HAD LARGE BM IN BSC - INTEGRATED CIRCUIT LAYOUT DESIGNER ASSISTED. PT DENIES FURTHER NEEDS, CALL LIGHT IN REACH.
--- NOTE | 2021-11-16 16:58 | NUR ---
PT UP TO BSC - LARGE BM. BACK TO BED WITH CALL LIGHT IN REACH, NC ON. CALL LIGHT IN REACH.
--- NOTE | 2021-11-16 18:35 | NUR ---
PATIENT BACK TO BED FROM BSC, 1PA FWW. VITALS AND I&O'S CHARTED. CALL LIGHT IN REACH. NO FURTHER NEEDS AT THIS TIME.
--- NOTE | 2021-11-16 19:27 | NUR ---
REPORT RECIEVED FROM TITO FABIAN. PATIENT UP TO BEDSIDE COMMODE. NUISANCE WILDLIFE TRAPPER IN ROOM.
--- NOTE | 2021-11-16 20:12 | NUR ---
PATIENT REQUESTED BEDSIDE COMMODE. ASSISTED PATIENT TO COMMODE. PATIENT HAD MEDIUM BOWEL VOID. ASSISTED PATIENT BACK TO BED. PATIENT BREATHING LABORED, SPOT CHECKED SPO2 AND IT WAS 92%. EDUCATED PATIENT ON BIPAP. PATIENT DENIES USE OF BIPAP AT THIS TIME. NO OTHER NEEDS VOICED AT THIS TIME. CALL LIGHT WITHIN REACH.
--- NOTE | 2021-11-16 21:40 | NUR ---
ASSESSMENT COMPLETE. CABA CARE COMPLETE. DIMINISHED LUNG SOUNDS ON RIGHT SIDE. PATIENT RESTING IN BED 2 L NASAL CANNULA. NO NEEDS VOICED AT THIS TIME. CALL LIGHT WITHIN REACH.
--- NOTE | 2021-11-16 21:42 | NUR ---
CALL LIGHT ON. pt FINISHED ON BSC. pt REFUSED TO WIPE SELF, CLEANED PERIAREA FOR pt. pt BACK TO BED WITHOUT ASSISTANCE. SCDS ON, CALL LIGHT AND POSSESSIONS WITHIN REACH.
--- NOTE | 2021-11-16 23:16 | NUR ---
ANSWERED CALL LIGHT. PATIENT VOICED NEED TO USE BEDSIDE COMMODE. PATIENT AMBULATES TO COMMODE WITH ASSISTENCE FROM THIS STUDENT NURSE. PATIENT HAD SMALL BOWEL VOID. HELPED PATIENT WITH WIPING AND ASSISTED HER BACK TO BED. EDUCATED PATIENT ON IMPORTANCE OF BIPAP. PATIENT DENIES AND REMAINS ON 2 L NASAL CANNULA. SCD'D IN PLACE. NO OTHER NEEDS VOICED AT THIS TIME. CALL LIGHT WITHIN REACH.
--- NOTE | 2021-11-16 23:40 | NUR ---
RESPONDED TO CALL LIGHT. PATIENT REQUESTED ICE WATER. OFFERED 150 ML. EDUCATED PATIENT ON FLUID RESTRICTIONS. NO OTHER NEEDS VOICED AT THIS TIME. CALL IGHT WITHIN REACH.
--- NOTE | 2021-11-17 01:09 | NUR ---
CHECKED ON PATIENT. PATIENT AWAKE AND TRYING TO REACH CALL LIGHT. REMINDED PATIENT THAT THERE IS CALL LIGHTS ON BED. PATIENT VOICED NEED TO USE BEDSIDE COMMODE. ASSISTED PATIENT TO BEDSIDE CAOMMODE. PATIENT HAD SMALL BOWEL MOVEMENT. ASSISTED PATIENT BACK TO BED. SCD'S IN PLACE. BANDAGE FROM RIGHT SIDE OF STOMACH FELL OFF WHILE PATIENT USED THE COMMODE. THERE WAS NO DRAINAGE SO I LEFT IT OFF. NO FURTHER NEEDS VOICED AT [facility]. CALL LIGHT WITHIN REACH.
--- NOTE | 2021-11-17 03:11 | NUR ---
ANSWERED CALL LIGHT. PATIENT REQUESTED BED SIDE COMMODE. ASSISTED PATIENT TO COMMODE. PATIENT WAS UNABLE TO VOID. ASSISTED PATIENT BACK TO BED. PATIENT ASSESSMENT COMPLETED AT THIS TIME. VSS. SCD'S IN PLACE. PATIENT REFUSES BIPAP AND REMAINS ON 2 L NASAL CANNULA. PATIENT DENIES ANY PAIN OR NAUSEA. NO OTHER NEEDS VOICED AT THIS TIME. CALL LIGHT WITHIN REACH.
--- NOTE | 2021-11-17 04:44 | NUR ---
PATIENT REFUSED BIPAP BUT TOLERATED NASAL CANNULA THROUGHOUT THE NIGHT. PATIENT TOLERATING FLUID RESTRICTIONS. PATIENT FELT URGENCY TO MOVE BOWELS THROUGOUT THE NIGHT AND USED CALL LIGHT APPROPRIATELY. DIMINISHED LUNG SOUNDS IN RIGHT LOWER LOBE. VSS. NO OTHER NEEDS VOICED. CALL LIGHT IS WITHIN REACH.
--- NOTE | 2021-11-17 06:44 | NUR ---
CHECKED ON PATIENT. PATIENT RESTING N BED WITH EYES CLOSED. EMPTIED FOLY 150. CALL LIGHT WITHIN REACH.
--- NOTE | 2021-11-17 07:26 | NUR ---
REPORT RECEIVED FROM NIGHT RN TAWNY - PT RESTING IN BED WITH EYES CLOSED, RR EVEN AND NC IN PLACE. . CALL LIGHT IN REACH.
--- NOTE | 2021-11-17 08:57 | NUR ---
RN IN ROOM TO ADMINISTER SCHEDULED MEDICATIONS. PT AWAKE IN BED UPON ENTRY. SP02 91% ON 2l NC. STATES TO RT THAT SHE WAS NOT OFFERED CPAP LAST NIGHT DESPITE REPORT FROM NIGHT RN BEING DIFFERENT. PT SITTING UP IN BED TO EAT BREAKFAST BY SELF. ENCOURAGED SELF CARE TODAY SINCE PT STATES SHE ONLY WANTS TO BE DISCHARGED HOME. PLAN OF CARE DISCUSSED AND AGREED UPON BY PT. CALL LIGHT IN REACH.
--- NOTE | 2021-11-17 09:51 | NUR ---
JACEK IS LAYING IN BED. I&O AND VITALS CHARTED. CALL LIGHT WITHIN REACH NO FURTHER TASKS AT THIS TIME
--- NOTE | 2021-11-17 10:23 | NUR ---
RN IN ROOM TO ASSESS PT. ASSESSMENT MOSTLY UNCHANGED FROM PREVIOUS SHIFT. PT CONTINUES TO NEED 2L 02 VIA NC TO KEEP SP02 ABOVE 91%. LUNG SOUNDS HOLLOW ON RIGHT SIDE, DIMINISHED. ABDOMEN NONTENDER, SOFT. PT WEARING SCD'S IN BED. VS STABLE. PT REQUESTS BIPAP - PLACED ON BY RT SUMIT. CALL LIGHT IN REACH. CURTAIN OPEN.
--- NOTE | 2021-11-17 11:02 | NUR ---
RN ROUNDING ON PT - PT ASLEEP WITH BIPAP ON , HEAD OF BED ELEVATED, RR EVEN, NO INCREASE IN LABOR OF BREATHING NOTED. CALL LIGHT IN REACH.
--- NOTE | 2021-11-17 11:38 | NUR ---
Call light answered, pt SBA to BSC, no output at this time. On NC O2. Pt conversational with nurses. Able to wipe herself and transfer. Linens changed. Call light in reach, no further needs.
--- NOTE | 2021-11-17 12:09 | NUR ---
PT OFF BIPAP, ADMINSITERED SCHEDULED MEDDS. PT CURRENTLY HAS HELPER IN ROOM ASSISTING WITH FINANCIAL THINGS.
--- NOTE | 2021-11-17 12:48 | NUR ---
RN ROUNDING ON PT - SITTING UP IN BED ON PHONE. [address], RR EVEN WITH NO INCREASE IN LABORED BREATHING. CALL LIGHT IN REACH.
--- NOTE | 2021-11-17 13:30 | NUR ---
PT USES CALL LIGHT TO USE COMMODE FOR BM. NO BM PRODUCED, PT REQUESTS TO GO BACK TO BED. INCREASED DYSPNEA UPON REPOSITIONING IN BED. CALL LIGHT IN REACH.
--- NOTE | 2021-11-17 14:04 | NUR ---
ROUNDING ON PT - PT REQUESTS TO RETURN ON BIPAP - RN PLACED. SP02 AT 96%. CALL LIGHT IN REACH.
--- NOTE | 2021-11-17 14:10 | NUR ---
AGATA HOLLOWAY IN VISITING WITH PT. WILL CHECK BACK
--- NOTE | 2021-11-17 15:30 | NUR ---
Spoke with patient and she states she will have Nadia help her when she discharges. She is completely against placement to a SNF or an [facility]. She states she is trying to get her daughter to move from [place] to [place]. I told her my concern is she will fall and no one will find her for hours. She does state she will consider a Life Alert. We have discussed this in the past. I also tried to set up a needs assessment with [facility] last admission, but screened her phone calls and was never able to receive their call. S[facility]MER[facility] called and stated they could not reach as she never would answer their calls. She would like [facility] to contact her, but again does not want to answer calls she does not recognize.
--- NOTE | 2021-11-17 15:57 | NUR ---
RN IN ROOM TO ASSESS PT. PT JUST GETTING BACK IN TO BED AFTER WORKING WITH PT. PT SOB - SP02 STABLE AT 92% ON 2L VIA NC. ABDOMEN SOFT BUT INCREASED USE OF ACCESSORY MUSCLES NOTED WITH RESPIRATIONS. SCHEDULED IV LASIX ADMINISTERED. VS STABLE OTHERWISE. CALL LIGHT IN REACH.
--- NOTE | 2021-11-17 17:21 | NUR ---
RN ROUNDING ON PT - PT SITTING UP IN BED WAITING FOR DINNER.
--- NOTE | 2021-11-17 18:08 | NUR ---
RN IN ROOM TO COMPLETE VS AND I/O. PT RESTING IN BED AWAKE. FINISHED 75% OF HER DINNER. VS STABLE, URINE OUTPUT ADEQUATE AND APPROPRIATE FOR IV DIURETICS RECEIVED. PT REPOSITIONED IN BED, CALL LIGHT IN REACH.
--- NOTE | 2021-11-17 19:24 | NUR ---
RECIEVED REPORT FROM NURSE FABIAN. PATIENT RESTING IN BED WITH EYES CLOSED. CALL LIGHT WITHING REACH.
--- NOTE | 2021-11-17 20:35 | NUR ---
PATIENT ALERT AND ORIENTED. VSS. ASSESSMENT COMPLETE. RIGHT ANTICUBITAL IV DC'D BY THIS STUDENT NURSE. NEW IV STARTED IN RIGHT HAND BY THIS STUDENT NURSE. BIPAP PLACED. NO OTHER NEEDS VOICED AT THIS TIME. CALL LIGHT WITHIN REACH.
--- NOTE | 2021-11-17 21:45 | NUR ---
ANSWERED CALL LIGHT. PATIENT REQUESTED TO BE TAKEN OFF THE BIPAP AND RETURNED TO 2 L NASAL CANNULA. EDUCATED PATIENT ON IMPORTANCE OF BIPAP USE. BREATHING IS EVEN AND UNLABORED. NO OTHER NEEDS VOICED AT THIS TIME. CALL LIGHT WITHIN REACH.
--- NOTE | 2021-11-17 23:05 | NUR ---
ANSWERED CALL LIGHT. PATIENT REQUESTED TO USE THE BEDSIDE CAMMODE. PATIENT HAD FLATULENCE BUT NO BOWEL MOVEMENT. EDUCATED PATIENT ON IMPORTANCE OF BIPAP BUT PATIENT REFUSED. PATIENT REMAINS ON 2 L NASAL CANNULA. PATIENT TOLERATING FLUID RESTRICTIONS. NO OTHER NEEDS VOICED AT THIS TIME. CALL LIGHT WITHIN REACH.
--- NOTE | 2021-11-18 00:28 | NUR ---
ANSWERED CALL LIGHT. PATIENT REQUESTED THE SCD'S BE REMOVED. REMOVED SCD'S. NO OTHER NEEDS VOICED AT THIS TIME. CALL LIGHT WITHIN REACH.
--- NOTE | 2021-11-18 01:30 | NUR ---
ANSWERED CALL LIGHT. PATIENT NEEDED HELP WITH NASAL CANNULA. STRAIGHTENED OXYGEN TUBING AND ADJUSTED NASAL PIECE. NO OTHER NEEDS VOICED AT THIS TIME. CALL LIGHT WITHIN REACH.
--- NOTE | 2021-11-18 03:10 | NUR ---
PATIENT RESTING IN BED WITH EYES CLOSED. BREATHING EVEN AND UNLABORED. CALL LIGHT WITHIN REACH.
--- NOTE | 2021-11-18 06:27 | NUR ---
PATIENT ALERT AND ORIENTED. ASSESSMENT COMPLETE. VSS. CABA DRAINED. PATIENT TOLERATING FLUID RESTRICTIONS. ENCOURAGED PATIENT TO USE CPAP, PATIENT REFUSED. TOLERATING 2L NASAL CANNULA. BREATHING EVEN AND UNLABORED. NO OTHER NEEDS VOICED AT THIS TIME. CALL LIGHT WITHIN REACH.
--- NOTE | 2021-11-18 06:34 | NUR ---
PATIENT TOLERATING 2 L NASAL CANNULA. PATIENT DID USE THE CPAP ONCE AND REFUSED THE REST OF THE NIGHT. PATIENT TOLERATING FLUID RESTRICTIONS. DIMMINISHED LUNG SOUNDS IN RIGHT LOWER LOBE. VSS. USED CALL LIGHT APPROPRIATELY. NO OTHER NEEDS VOICED. CALL LIGHT WITHIN REACH.
--- NOTE | 2021-11-18 09:49 | NUR ---
PT IS INTERESTED IN A BED BATH LATER THIS AFTERNOON, AFTER A NAP
--- NOTE | 2021-11-18 11:48 | NUR ---
Patient resting in bed, eyes closed, respirations even and non labored. Patient remians on 2L oxygen per nc. Reagan intact/patent, clear yellow urine noted. Personal supplies and call light within reach.
--- NOTE | 2021-11-18 12:50 | NUR ---
Patient assisted to chair for lunch, 1PA with walker, tolerated well. This RN washed patient's hair at this time. Patient placed to room air at this time, sp02 92% at this time. No current needs. Will monitor patient to ensure sp02 sustains. Patient denies sob, respirations even and non labored.
--- NOTE | 2021-11-18 14:26 | NUR ---
JACEK IS LAYING IN BED RESTING. CALL LIGHT WITHIN REACH. NO FURTHER TASKS AT THIS TIME
--- NOTE | 2021-11-18 14:45 | NUR ---
Spoke with Mary. She is adamant she will not go to a SNF or [facility]. She cont. to plan on dc to home. States she is not feeling very well overall. She again asks me about services through [facility], but cont. to screen her calls. I returned to my office and called [facility]. They again state they have called multiple times and were unable to reach. I was able to speak with Jake, nutritional service/food home delivery. He gave me his work cell number and I will put this number and [facility] number in Mary's phone. He will call her tomorrow.
--- NOTE | 2021-11-18 14:56 | NUR ---
Ernesto LEYVA IN WITH PT, BEGINNING WORK OUT. GAVE ENCOURAGEMENT, PT STATED THAT HER MACHINE SLAT BASKET MAKER STOPPED BY AND SHE SEEMED PLEASED. WILL FOLLOW
--- NOTE | 2021-11-18 18:06 | NUR ---
JACEK IS SITTING UP IN BED. I&O AND VITALS CHARTED. CALL LIGHT WITHIN REACH. NO FURTHER TASKS AT THIS TIME
--- NOTE | 2021-11-18 19:49 | NUR ---
PT CALLED FOR HELP GETTING HER SOCKS OFF, ALSO PROVIDED TYLENOL FOR A HEADACHE 03/02. PT WOULD LIKE SOMETHING FOR SLEEP TONIGHT, WILL TELL PRIMARY RN. CALL LIGHT IS CLOSE.
--- NOTE | 2021-11-18 21:21 | NUR ---
PT CALLED TO HAVE SCDS ADJUSTED ON LEGS, SHE DENIES FURTHER NEEDS. CALL LIGHT IS CLOSE.
--- NOTE | 2021-11-18 23:15 | NUR ---
IN TO ASSIST PT UP TO THE BSC, 1PA PIVOT, BACK TO BED AFTER SMALL BM, NO FURTHER NEEDS AT THIS TIME
--- NOTE | 2021-11-19 00:48 | NUR ---
UP TO BSC. HAD A VERY SMALL FORMED BM. DENEIS ANY OTHER NEEDS. CALL LIGHT WITHIN REACH. SCD'S REPLACED ONCE BACK TO BED.
--- NOTE | 2021-11-19 02:02 | NUR ---
APPEARS ASLEEP. NO DISTRESS NOTED.
--- NOTE | 2021-11-19 04:29 | NUR ---
PT AWOKE AND REQUESTED ASSISTANCE. REPOSTIONED AND BEDDING STRAIGHTENED. OFFERED FRESH GOWN BUT PT DECLINED
--- NOTE | 2021-11-19 04:29 | NUR ---
IN THE GET VS, NO FURTHER NEEDS AT THIS TIME
--- NOTE | 2021-11-19 06:56 | NUR ---
PT DID NOT USE BIPAP DURING THE NIGHT. NO DISTRESS THROUGHOUT THE NIGHT. HAD 2 SMALL BM'S.
--- NOTE | 2021-11-19 07:42 | NUR ---
Patient in bed resting, eyes closed, respirations even and non labored. Patient is on room air, respirations even and non labored. Personal supplies and call light within reach.
--- NOTE | 2021-11-19 08:05 | NUR ---
Yordy is up in chair am cares done. call light within reach. no further tasks at this time
--- NOTE | 2021-11-19 08:07 | NUR ---
Tylenol 325mg po admin for reports of 5/10 headache.
--- NOTE | 2021-11-19 09:18 | NUR ---
cade is up in chair. i&o and vs charted. call light within reach. no further tasks at this time
--- NOTE | 2021-11-19 12:00 | NUR ---
PT ALERT, ORIENTED AND SITTING UP IN BED WITH TV ON. PT IS FEELING BETTER, HAD GOOD, LIVELY VISIT. GAVE BLESSING AND WILL FOLLOW
--- NOTE | 2021-11-19 12:40 | NUR ---
Removed amezquita catheter per provider order. 9ml sterile water removed from amezquita balloon prior to removal. Amezquita cath tip intact post removal. Patient tolerated well. Pt now due to void.
--- NOTE | 2021-11-19 13:00 | NUR ---
Spoke with Mary. She states she has not heard from [employer]. Encouraged her to call as the phone numbers are now in her phone. She denies other needs.
--- NOTE | 2021-11-19 14:38 | NUR ---
GUALBERTOT IS SITTING UP IN BED TALKING ON THE PHONE. VS AND I&O CHARTED. CALL LIGHT WITHIN REACH NO FURTHER TASKS AT THIS TME
--- NOTE | 2021-11-19 18:00 | NUR ---
REPORT FROM PONCHO FRANCIS, ASSUMED CARE OF PT, PT. RESTING IN BED, EYES CLOSED RESPIRATIONS EVEN, NO NEEDS
--- NOTE | 2021-11-19 19:30 | NUR ---
PT ASSISTED WITH ROOM LIGHTS TURNED OUT
--- NOTE | 2021-11-19 20:25 | NUR ---
IN TO ASSIST PT TO THE BSC, PROVIDED PT PRIVACY, WILL CALL WHEN READY
--- NOTE | 2021-11-19 22:20 | NUR ---
PT CALLED FOR HELP TO RESTROOM AND BACK BED. SHE VOIDED 200MLS OF URINE. SHE DENIES FURTHER NEEDS AT THIS TIME. SCDS ARE IN PLACE.
--- NOTE | 2021-11-20 01:48 | NUR ---
PT [place] [facility] [place] 150MLS OF URINE. PT DENIES FURTHER NEEDS. CALL LIGHT IS CLOSE.
--- NOTE | 2021-11-20 04:00 | NUR ---
PT CALLED TO GET BOOSTED, VITALS DONE, NO FURTHER NEEDS AT THSI TIME
--- NOTE | 2021-11-20 05:07 | NUR ---
UP AGAIN TO VOID. DENIES ANY OTHER NEEDS. EASILY MAINTAINING FLUID RESTRICTION.
--- NOTE | 2021-11-20 06:30 | NUR ---
PT REQUESTING TO GET WEIGHTED THIS MORNING, PROVIDED
--- NOTE | 2021-11-20 07:37 | NUR ---
Patient awake, alert and oriented x4. Patient denies pain and or sob at this time. Personal supplies and call light within reach.
--- NOTE | 2021-11-20 08:04 | NUR ---
zOFRAN 4MG IV ADMIN FOR REPORTS OF NAUSEA.
--- NOTE | 2021-11-20 12:32 | NUR ---
Patient resting in bed, eyes closed, respiration even and non labored. Patient has no notable distress. Personal supplies and call light within reach.
--- NOTE | 2021-11-20 15:31 | NUR ---
Patient asssited to restroom to void then back to bed. Patient reports she is doing well this afternoon, she denies sob and or cp. Patient reports she has no pain. Patient denies needs. Fresh water at bedside. Call light within reach.
--- NOTE | 2021-11-20 19:05 | NUR ---
IN ROOM FOR REPORT, PT IS AWAKE IN BED AND DENIES NEEDS AT THIS TIME. CALL LIGHT IS CLOSE.
--- NOTE | 2021-11-20 20:40 | NUR ---
IN TO ASSIST PT UP TO THE BSC, BACK TO BED
--- NOTE | 2021-11-20 21:42 | NUR ---
IN ROOM TO ASSESS PT AND ADMINISTER MEDICATIONS. PS USED BSC AND IS NOW BACK IN BED. SHE DENIES PAIN AND SOB. IV FLUSHES FINE. PT USED CORNET. PT DENIES FURTHER NEEDS, CALL LIGHT IS CLOSE.
--- NOTE | 2021-11-20 23:05 | NUR ---
PT IS RESTING WITH EYES CLOSED RR IS EVEN AND UNLABORED. CALL LIGHT IS CLOSE/
--- NOTE | 2021-11-21 00:20 | NUR ---
PT UP TO THE BSC TO VOID
--- NOTE | 2021-11-21 00:55 | NUR ---
PATIENT RESTING WITH NO SIGNS OF DISTRESS.
--- NOTE | 2021-11-21 01:33 | NUR ---
PT CALLED AFTER SPILLING WATER ON HER BED. REFILLED WATER AND CHANGED PT'S BEDDING WHILE SHE WAS UP TO THE BSC. SHE DENIES PAIN, SOB AND NAUSEA. PT DENIES FURTHER NEEDS AT THIS TIME AND CALL LIGHT IS CLOSE.
--- NOTE | 2021-11-21 01:38 | NUR ---
PT IS RESTING WITH EYES CLOSED, RR IS EVEN AND UNLABORED ON 2LNC CPOX READS 90%. CALL LIGHT IS CLOSE, SCDS IN PLACE, IV IS INFUSING FINE, AND OCEAN EXPORT COORDINATOR BUTTON IS ON CHEST.
--- NOTE | 2021-11-21 03:36 | NUR ---
PT IS RESTING WITH EYES CLOSED, RR IS EVEN AND UNLABORED. CALL LIGHT IS CLOSE.
--- NOTE | 2021-11-21 04:00 | NUR ---
PT ASSISTED TO THE BSC, BACK TO BED, NO FURTHER NEEDS
--- NOTE | 2021-11-21 05:12 | NUR ---
ASSISTED TO BOOST PT IN BED AFTER JOEL FRANCIS ASSISTED PT TO THE BSC. SHE DENIES FURTHER NEEDS. CALL LIGHT IS CLOSE.
--- NOTE | 2021-11-21 06:54 | NUR ---
IN ROOM TO GET VS/I&O'S WITH HELP OF JOEL FRANCIS. SHE REMAINS IN ROOM TALKING WITH PT AT THIS TIME. CALL LIGHT IS CLOSE.
--- NOTE | 2021-11-21 07:51 | NUR ---
Patient resting in bed, eyes closed, respirations even and non labored. No distress noted. Personal supplies and call light within reach.
--- NOTE | 2021-11-21 09:04 | NUR ---
Call light answered, assisted patient to BR to void and back to bed. Pt on RA, tolerates activity well with FWW and SBA. SCDs in place. No further needs
--- NOTE | 2021-11-21 12:35 | NUR ---
Patient resting in bed, no distress. This RN encouraged patient to shower, she is requesting a small nap first. This RN to return back to patient this afternoon for shower. Patient has no other needs. Personal supplies and call light within reach.
--- NOTE | 2021-11-21 15:27 | NUR ---
Patient in shower at this time with STONE GRADER assist.
--- NOTE | 2021-11-21 19:25 | NUR ---
BEDSIDE REPORT FROM PRETTY RN, PT UP TO COMMODE WITH BIODIESEL ENGINEERING MANAGER AT THIS TIME. PT ALERT AND ORIENTED ON ROOM AIR. PT JOKING AND LAUGHING WITH THIS RN. NO CONCERNS OR REQUESTS AT THIS TIME.
--- NOTE | 2021-11-21 19:30 | NUR ---
SBA. PATIENT CALLED TO USE THE BEDSIDE COMMODE. PATIENT USED WALKER. PATIENT IS BACK IN BED. SCD'S BACK ON. PUDDING AND JELLO PROVIDED PER REQUEST.
--- NOTE | 2021-11-21 20:15 | NUR ---
CALL LIGHT ANSWERED, pt UP TO VOID VIA BSC AND BACK TO BED, BED ALARM ON AND CALL LIGHT IN REACH. SCD'S ON.
[2021-11-21] MEDS ORDERED: SPIRONOLACTONE25 MG PO (20:44)
--- NOTE | 2021-11-21 21:00 | NUR ---
CALL LIGHT ANSWERED, pt UP TO VOID VIA BSC AND BACK TO BED, BED ALARM ON AND CALL LIGHT IN REACH. SCD'S ON. NO FURTHER NEEDS AT THIS TIME.
--- NOTE | 2021-11-21 21:58 | NUR ---
PT JUST BACK TO BED ALERT AND ORIENTED. JUST BACK TO BED FROM BS, SHE REPORTS NO PAIN OR NAUSEA AT THIS TIME. LAUGHING AND JOKING. SHE IS ON ROOM AIR NO SOB WITH ACTIVITY.
--- NOTE | 2021-11-21 22:10 | NUR ---
PT CALLED, REQUESTED TO GO TO BATHROOM. INDEPENDENTLY OUT OF BED, WITH HAND HOLD TO THE COMMODE. INDEPENDENT CLEANING SELF, AGAIN SBA TO BED. SCD'S IN PLACE, HOB ELEVATED WELL KNEES PER PT CHOICE. CALL LIGHT WITHIN REACH.
--- NOTE | 2021-11-21 22:50 | NUR ---
PT CALLED TO USE BSC. USING WALKER SBA, VOIDED, BACK TO BED, SCD'S ADJUSTED, ALL PERSONAL SUPPLIES WITHIN REACH.
--- NOTE | 2021-11-22 01:06 | NUR ---
PT CALLED TO VOID, SHE HAS NOT SLEPT WELL OVER SHIFT, UP TO VOID EVERY 30-45MIN. VOIDING 100ML OR LESS EACH TIME. BLADDER SCANNED AT THIS TIME POST VOID OF 100ML, ONLY 5ML REGISTERED ON BLADDER SCANNER, THREE CONSISTENT SCANS
--- NOTE | 2021-11-22 02:24 | NUR ---
CALL LIGHT ANSWERED, pt UP SBA TO VOID AND BACK IN BED. STEADY ON FEET. CALL LIGHT IN REACH.
--- NOTE | 2021-11-22 03:57 | NUR ---
PT CALLED NURSES STATION TO REQUEST ASSISTANCE TO USE BATHROOM AT THIS TIME. RETAIL DEPARTMENT RESET INTO ASSIST.
--- NOTE | 2021-11-22 07:48 | NUR ---
REPORT FROM FANI MALDONADO RN.
--- NOTE | 2021-11-22 09:15 | NUR ---
Morning assessment done. Pt is resting in bed, ate 100% of breakfast. SCDs applied. IV flushed and patent. Pt still have issues with urgency and frequency (trey. at night). Pt is hoping she'd be going home today.
--- NOTE | 2021-11-22 09:41 | NUR ---
PATIENT TO COMMODE WITH SBA AND FWW. PATIENT IS MODERATELY UNSTEADY ON HER FEET.
--- NOTE | 2021-11-22 11:27 | NUR ---
PT REFUSED OOB FOR MEAL, PT BOOSTED SELF IN BED, CALL LIGHT WITHIN REACH, NO FURTHER ASSISTANCE NEEDED AT THIS TIME
--- NOTE | 2021-11-22 12:16 | NUR ---
PT UP TO BSC, 1P SBA TO BSC, PT BACK TO BED, PERICARE BY SELF. CALL LIGHT WITHIN REACH, NO FURTHER ASSITANCE NEEDED AT THIS TIME.
--- NOTE | 2021-11-22 12:57 | NUR ---
PT ALERT, ORIENTED AND SITTNG UP IN BED WITH TV ON. PT WOULD LIKE VISIT FROM , WILL ARRANGE. PT STATED SHE HOPES TO DC LATER TODAY. HAD GOOD VISIT, JORGE A PERRY AND WILL FOLLOW NEEDED
--- NOTE | 2021-11-22 14:22 | NUR ---
ASSISTED PT INTO BR AND BACK TO BED, PT 1PA FWW CALL LIGHT WITHIN REACH NO FURTHER ASSISTANCE NEEDED AT THIS TIME.
--- NOTE | 2021-11-22 14:45 | NUR ---
Spoke with Mary, she states she did not get a call from [facility], I called on her phone and let her speak with [facility]. We then discussed her needs for dc and she cont. to say she will not move to an SHELTER and does not want anyone to live in her home. She will call the neighbors when she gets home and ask them to check on her. Pt denies needs.
--- NOTE | 2021-11-22 14:46 | NUR ---
PATIENT DISCHARGE INSTRUCTIONS GIVEN. RIGHT HAND IV D/C'D WITH CATHETER INTACT. PATIENT INDICATED THAT HER FRIEND LULY WOULD BE TRANSPORTING HER HOME.
== END 2021-11-22 16:00 | disposition home or self-care (01) | DRG 432 ==
LOC: ED 11:06 → MS 11:07
PROVIDERS: ADMIT Internal Medicine; ATTEND Internal Medicine
DX: K74.60 Unspecified cirrhosis of liver (principal); J96.21 Acute and chronic respiratory failure with hypoxia; J94.8 Other specified pleural conditions; F33.9 Major depressive disorder, recurrent, unspecified; D68.9 Coagulation defect, unspecified; Z20.822 Contact with and (suspected) exposure to COVID-19; G89.4 Chronic pain syndrome; Z79.01 Long term (current) use of anticoagulants; E55.9 Vitamin D deficiency, unspecified; Z88.8 Allergy status to other drugs, medicaments and biological substances; E78.5 Hyperlipidemia, unspecified; M19.90 Unspecified osteoarthritis, unspecified site; E11.9 Type 2 diabetes mellitus without complications; Z98.51 Tubal ligation status; Z96.643 Presence of artificial hip joint, bilateral; Z98.890 Other specified postprocedural states; Z96.652 Presence of left artificial knee joint; Z88.5 Allergy status to narcotic agent; Z91.018 Allergy to other foods; Z79.899 Other long term (current) drug therapy
CPT/HCPCS: 36415; 36600; 71045; 71046; 80048; 80053; 82803; 83735; 83880; 85025; 85610; 93005; 93010; 93306; 94660; 94667; 94668; 94760; 94762; 96365; 96366; 96375; 96376; 97110; 97116; 97161; 97530; 99285-25; A9270; G0378; J1940; J1956; J2405; J3475; U0003

== ENCOUNTER 2021-12-17 07:38 | Emergency (ER) | payer MEDICARE ==
[~2021-12-17] VITALS: Ht 162.6 cm; Wt 81.6 kg
[~2021-12-17 07:38] MED LIST changes: +SPIRONOLACTONE25 MG PO
--- OUTSIDE RECORDS SUMMARY | 2021-12-17 07:40 | XMS ---
PreManage Notification: TREE GARCIA [employer] Events No recent Security Events currently on file CRITERIA MET - 6 ED Visits in 6 Months - [facility] - Has Care Guidelines CARE PROVIDERS [place] CAPUTO Nurse Practitioner: Family 03/21/2019-Current PHONE: Unknown KRUNAL GARRIDO Family Medicine 05/26/2021-Current PHONE: [phone] [facility] has no Care Guidelines for this patient. Care History Medical/Surgical 10/21/2021 [facility] Patient has follow up with DR. Garrido on 10/27/2021 10/20/2021 [facility] - Patient is currently established with [facility]. If patient is seen in the ED during business hours. Please contact CHWs at [facility]. Care Recommendation: This patient has had 5 or more Emergency Department visits in the last 12 months.\T\nbsp; Patient requires education on the scope and purpose of the ED as an acute care provider not a Primary Care Provider and should not be utilized for chronic conditions.\T\nbsp; These are guidelines and the provider should exercise clinical judgment when providing care. 07/13/2021 [facility] Frida Li saw patient on 07/07/2021 for left side pain, due to falling at home, and advised if health/pain becomes worse to see PCP or go to ER. No follow up scheduled at this time. [facility] MO[facility] NOTE: Visits indicate total known visits. ED/UCC VISIT TRACKING (12 MO.) [facility] 07[facility] COMPLAINT: - R FLANK PAIN 11/14/2021 11:06 [facility] [place] TYPE: Emergency COMPLAINT: - DIFFICULLTY BREATHING 11/13/2021 10:06 [facility] [place] TYPE: Emergency COMPLAINT: - LEFT SIDE PAIN,MITESH DIAGNOSES: - Hyperlipidemia, unspecified - Pleural effusion, not elsewhere classified - Shortness of breath - Allergy status to narcotic agent - Unspecified osteoarthritis, unspecified site - Essential (primary) hypertension - Allergy status to other drugs, medicaments and biological substances - Other residential (current) drug therapy - Type 2 diabetes mellitus without complications 11/07/2021 19:03 [facility] [place] TYPE: Emergency COMPLAINT: - URINE PROBLEM DIAGNOSES: - Urinary tract infection, site not specified - Allergy status to narcotic agent - Allergy to other foods - Hyperlipidemia, unspecified - Type 2 diabetes mellitus without complications - Dysuria - Other ad terminal makeup operator (current) drug therapy - Essential (primary) hypertension [...] of lower back, initial encounter - Other ad terminal makeup operator (current) drug therapy - Nausea with vomiting, unspecified - Fall on same level, unspecified, initial encounter - Hyperlipidemia, unspecified 08/08/2021 20:33 [facility] [place] TYPE: Emergency COMPLAINT: - ABD PAIN DIAGNOSES: - Other ad terminal makeup operator (current) drug therapy - Unspecified osteoarthritis, unspecified site - Allergy status to narcotic agent - Left lower quadrant pain - Essential (primary) hypertension - Hyperlipidemia, unspecified - Type 2 diabetes mellitus without complications 07/09/2021 15:56 [facility] [place] TYPE: Emergency COMPLAINT: - LOWER ABDOMINAL PAIN DIAGNOSES: - Type 2 diabetes mellitus without complications - Hyperlipidemia, unspecified - Other ad terminal makeup operator (current) drug therapy - Allergy status to narcotic agent - Essential (primary) hypertension - Lower abdominal pain, unspecified 05/25/2021 14:46 [facility] [place] TYPE: Emergency COMPLAINT: - WEAKNESS, HEADACHE DIAGNOSES: - Type 2 diabetes mellitus without complications - Contact with and (suspected) exposure to COVID-19 - Unspecified osteoarthritis, unspecified site - Other ad terminal makeup operator (current) drug therapy - Anemia, unspecified - Allergy status to narcotic agent - Weakness - Essential (primary) hypertension - Hyperlipidemia, unspecified INPATIENT VISIT TRACKING (12 MO.) 11/16/2021 09:11 [facility] [place] TYPE: Medical Surgical COMPLAINT: - HEPATIC HYDROTHORAX DIAGNOSES: - Chronic pain syndrome - Allergy to other foods - Other specified postprocedural states - Coagulation defect, unspecified - Presence of left artificial knee joint - Hyperlipidemia, unspecified - Presence of artificial hip joint, bilateral - Type 2 diabetes mellitus without complications - Unspecified cirrhosis of liver - [facility]CI (current) use of anticoagulants - Other specified pleural conditions - Chronic pain syndrome - Unspecified cirrhosis of liver - Other ad terminal makeup operator (current) drug therapy - Contact with and (suspected) exposure to COVID-19 - Allergy status to narcotic agent - Vitamin D deficiency, unspecified - Acute respiratory failure with hypoxia - Allergy status to other drugs, medicaments and biological substances - Acute and chronic respiratory failure with hypoxia - Tubal ligation status - Major depressive disorder, recurrent, unspecified - Unspecified osteoarthritis, unspecified site 10/21/2021 08:[address] [facility] [place] [...] coli] - Severe sepsis without septic shock [email or web address]
[2021-12-17] MEDS ORDERED: SPIRONOLACTONE50 MG PO (07:57)
[2021-12-17] MEDS ORDERED: TRAMADOL HCL50 MG PO (07:57)
[2021-12-17] MEDS ORDERED: CEPHALEXIN500 MG PO (09:28)
== END 2021-12-17 09:51 | disposition home or self-care (01) ==
LOC: ED 07:38
DX: J90 Pleural effusion, not elsewhere classified (principal); E11.9 Type 2 diabetes mellitus without complications; I10 Essential (primary) hypertension; E78.5 Hyperlipidemia, unspecified; M19.90 Unspecified osteoarthritis, unspecified site; Z91.018 Allergy to other foods; Z88.5 Allergy status to narcotic agent; Z79.899 Other long term (current) drug therapy
CPT/HCPCS: 81001; 99283; A9270

== ENCOUNTER 2021-12-27 16:23 | Inpatient (IN) | payer MEDICARE ==
[~2021-12-27] VITALS: Ht 162.6 cm; Wt 83.5 kg
[~2021-12-27 16:23] MED LIST changes: +CEPHALEXIN500 MG PO
--- OUTSIDE RECORDS SUMMARY | 2021-12-27 16:26 | XMS ---
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 Care History Medical/Surgical 10/21/2021 [facility] Patient has follow up with DR. Garrido on 10/27/2021 10/20/2021 [facility] - Patient is currently established with [facility]. If patient is seen in the ED during business hours. Please contact CHWs at [facility]. Care Recommendation: This patient has had 5 or more Emergency Department visits in the last 12 months.\T\nbsp; Patient requires education on the scope and purpose of the ED as an acute care provider not a Primary Care Provider and should not be utilized for chronic conditions.\T\nbsp; These are guidelines and the provider should exercise clinical judgment when providing care. 07/13/2021 [facility] Frida Li saw patient on 07/07/2021 for left side pain, due to falling at home, and advised if health/pain becomes worse to see PCP or go to ER. No follow up scheduled at this time. [facility] NOTE: Visits indicate total known visits. ED/UCC VISIT TRACKING (12 MO.) [facility] COMPLAINT: - ABNORMAL LABS 12/17/2021 07:39 [facility] [place] TYPE: Emergency COMPLAINT: - R FLANK PAIN DIAGNOSES: - Shortness of breath - Essential (primary) hypertension - Hyperlipidemia, unspecified - Unspecified osteoarthritis, unspecified site - Pleural effusion, not elsewhere classified - Allergy status to narcotic agent - Other assisted (current) drug therapy - Type 2 diabetes mellitus without complications - Allergy to other foods 11/14/2021 11:06 [facility] [place] TYPE: Emergency [...] drugs, medicaments and biological substances - Other bed bug exterminator (current) drug therapy - Type 2 diabetes mellitus without complications 11/07/2021 19:03 [facility] [place] TYPE: Emergency COMPLAINT: - URINE PROBLEM DIAGNOSES: - Urinary tract infection, site not specified - Allergy status to narcotic agent - Allergy to other foods - Hyperlipidemia, unspecified - Type 2 diabetes mellitus without complications - Dysuria - Other assisted (current) drug therapy - Essential (primary) hypertension [...] of lower back, initial encounter - Other assisted (current) drug therapy - Nausea with vomiting, unspecified - Fall on same level, unspecified, initial encounter - Hyperlipidemia, unspecified 08/08/2021 20:33 [facility] [place] TYPE: Emergency COMPLAINT: - ABD PAIN DIAGNOSES: - Other assisted (current) drug therapy - Unspecified osteoarthritis, unspecified site - Allergy status to narcotic agent - Left lower quadrant pain - Essential (primary) hypertension - Hyperlipidemia, unspecified - Type 2 diabetes mellitus without complications 07/09/2021 15:56 [facility] [place] TYPE: Emergency COMPLAINT: - LOWER ABDOMINAL PAIN DIAGNOSES: - Type 2 diabetes mellitus without complications - Hyperlipidemia, unspecified - Other bed bug exterminator (current) drug therapy - Allergy status to narcotic agent - Essential (primary) hypertension - Lower abdominal pain, unspecified 05/25/2021 14:46 [facility] [place] TYPE: Emergency COMPLAINT: - WEAKNESS, HEADACHE DIAGNOSES: - Type 2 diabetes mellitus without complications - Contact with and (suspected) exposure to COVID-19 - Unspecified osteoarthritis, unspecified site - Other assisted (current) drug therapy - Anemia, unspecified - [...] complications - Unspecified cirrhosis of liver - manager terminal (current) use of anticoagulants - Other specified pleural conditions - Chronic pain syndrome - Unspecified cirrhosis of liver - Other assisted (current) drug therapy - Contact with and (suspected) exposure to COVID-19 - Allergy status to narcotic agent - Vitamin D deficiency, unspecified - Acute respiratory failure with hypoxia - Allergy status to other drugs, medicaments and biological substances - Acute and chronic respiratory failure with hypoxia - Tubal ligation status - Major depressive disorder, recurrent, unspecified - Unspecified osteoarthritis, unspecified site 10/21/2021 08:29 [facility] [place] TYPE: Medical [...] coli] - Severe sepsis without septic shock [email or web address]
[2021-12-27] MEDS ORDERED: CONSTULOSE10 GM/15 M PO (17:50)
[2021-12-27] MEDS ORDERED: BENADRYL25 MG PO (17:51)
[2021-12-27] MEDS ORDERED: VITAMIN D21250 MCG PO (20:01)
[2021-12-28] MEDS ORDERED: MAG GLYCINATE100 MG PO (11:20)
[2021-12-28] MEDS ORDERED: LACTULOSE10 GM/152 PO (11:35)
--- NOTE | 2021-12-28 19:07 | EKG ---
[facility] [address] [place] [address] Signed Sinus tachycardia Left axis deviation Inferior infarct (cited on or before 25-OCT-2016) Anterolateral infarct (cited on or before 25-OCT-2016) Abnormal ECG When compared with ECG of 13-NOV-2021 10:29, Questionable change in initial forces of Lateral leads Confirmed by MALLORY SILVERIO MD ([id number]) on 12/28/2021 7:06:55 PM Electronically Signed By: MALLORY SILVERIO MD 12/28/21 1907 PATIENT NAME: TREE GARCIA Electrocardiogram DATE OF : 44 PHYSICIAN: MALLORY SILVERIO MD REPORT #: [id number] REPORT IS CONFIDENTIAL AND NOT TO BE RELEASED WITHOUT AUTHORIZATION
--- NOTE | 2021-12-29 13:12 | OR ---
[facility] [address] [place], [place] [address] Signed DATE OF OPERATION: 12/29/2021 SURGEON: Kina Sherwood MD PREOPERATIVE DIAGNOSES: 1. Longstanding nonalcoholic steatohepatitis. 2. Anemia. POSTOPERATIVE DIAGNOSES: 1. Antral gastritis without sign of ulceration or bleeding. 2. Profound diverticular change of colon and polyp of transverse colon (excised). PROCEDURES: 1. Upper endoscopy with biopsy. 2. Total colonoscopy to cecum with cold snare polypectomy x1 (notably specimen lost). ANESTHESIA: Intravenous sedation, propofol infusion; Shirin Frederick CRNA INDICATIONS: This 81-year-old white woman was admitted to the hospital on December 27, [address] Dudley and care now assumed by Dr. Silverio. She came in with significant anemia. She is known to have nonalcoholic steatohepatitis and cirrhotic changes but no prior known varices. She is found to have anemia, which was rather significant and has had dark stool. She is admitted at this time to undergo upper endoscopy and colonoscopy to better characterize the source of her problem. FINDINGS: Upper endoscopy showed no evidence of esophageal varices. She had no stricture or neoplasm. Stomach had rather significant chronic gastritis but no sign of ulceration. CLOtest was negative 40 minutes post procedure. Colonoscopy showed a good prep. Complete colonoscopy was undertaken of the cecum, though it was extremely challenging and extremely prolonged. This was largely related to profound diverticular change of the sigmoid. Colonoscopy was accomplished safely to the cecum with good visualization of the cecum. There was a sessile polyp of the mid transverse colon which was excised with cold snare technique, however, the specimen was lost upon retrieval; despite efforts to find it was never relocated. She had no evidence of colitis, cancer, or other lesion to account for bleeding. DESCRIPTION OF PROCEDURE: Electronically Signed By: KINA SHERWOOD MD 12/29/21 1312 PATIENT NAME: TREE GARCIA OPERATIVE REPORT DATE OF : 44 REPORT #: [id number] PHYSICIAN: KINA SHERWOOD MD PCP: KRUNAL SOLANO MD REPORT IS CONFIDENTIAL AND NOT TO BE RELEASED WITHOUT AUTHORIZATION [facility] [address] [place], [place] [address] Signed The patient was brought to the endoscopy suite and placed in the lateral decubitus position, given intravenous sedation with propofol infusional technique after lidocaine hypopharyngeal anesthesia. A bite block was placed. Olympus video upper endoscope was passed in the hypopharynx. The vocal cords were normal and scope was advanced into the esophagus without problem. Esophagus looked normal and there is certainly no evidence of varices. The scope was passed to the stomach, which was insufflated with air. The antrum had chronic inflammatory changes but no sign of ulceration. The pylorus was reasonably normal and nondistorted. Scope was passed through into the duodenum, which showed mild inflammation. Biopsies were obtained. There was no sign of ulcer. The scope was withdrawn and biopsies taken of the antrum for both JAMARCUS and pathologic testing. Retroflexed view was undertaken showing a reasonably good flap valve. The scope was withdrawn to the distal esophagus and biopsies were obtained there, though there was no sign of lesion particularly. The remaining portion of the esophagus showed no sign of varices or other lesion to account for anemia. The scope was withdrawn and removed and the patient was then prepared for colonoscopy. Digital rectal examination was undertaken showing no evidence of neoplasm. The Olympus video colonoscope was passed in the rectum and manipulated into the sigmoid. Numerous and extensive and large and small diverticula were noted. Careful manipulation of the scope throughout the colon was undertaken. This was rather prolonged, complicated, and difficult. Passage to the transverse colon was ultimately accomplished with various maneuvers including abdominal wall stabilization, the scope passed ultimately to the cecum. Ileocecal valve and appendiceal orifice were normal. Scope was withdrawn from that point and in the mid transverse colon there was a small sessile polyp, it did not appear malignant, ulcerated or having bled. It was excised with cold snare technique. The specimen was grasped with the biopsy device. An attempt to deliver it through the channel scope caused its dislodgement. Various maneuvers were made to reidentify the polyp, could not be done. A trap was placed on the scope prior to polypectomy. Subsequent evaluation showed no evidence of the polyp, having been suctioned free and therefore the specimen was lost. The scope was withdrawn from that point and examination throughout confirmed only multiple diverticula. No sign of colitis or lesion to account for anemia. Retroflexed view was normal as well. Scope was removed and the patient was taken to the recovery room in good condition. CONCLUDING DIAGNOSES: 1. Anemia with uncertain etiology; significant antral gastritis without ulceration. 2. Profound diverticulosis and single polyp, unlikely to account for anemia. Kina Sherwood MD Electronically Signed By: KINA SHERWOOD MD 12/29/21 1312 PATIENT NAME: TREE GARCIA OPERATIVE REPORT DATE OF : 44 REPORT #: [id number] PHYSICIAN: KINA SHERWOOD MD PCP: KRUNAL SOLANO MD REPORT IS CONFIDENTIAL AND NOT TO BE RELEASED WITHOUT AUTHORIZATION [facility] [address] [place] [address] Signed /MODL /[id number] cc: MD Dr. Octavia Saunders MD Copies: MALLORY SILVERIO MD ~ Electronically Signed By: KINA SHERWOOD MD 12/29/21 1312 PATIENT NAME: TREE GARCIA OPERATIVE REPORT DATE OF : 44 REPORT #: [id number] PHYSICIAN: KINA SHERWOOD MD PCP: KRUNAL SOLANO MD REPORT IS CONFIDENTIAL AND NOT TO BE RELEASED WITHOUT AUTHORIZATION
--- NOTE | 2021-12-29 13:12 | CONS ---
[facility] [address] [place], [place] [address] Signed DATE OF CONSULTATION: 12/28/2021 REQUESTING PHYSICIAN: Dr. Dudley and Dr. Silverio. ISSUE: Persistent melena and anemia. HISTORY: This 81-year-old white woman has numerous medical problems. She was admitted following emergency room evaluation with generalized weakness and recurrent falls. She is a patient of Dr. Ivon Garrido and has seen Dr. Mead in the past for endoscopic evaluations. She was noted to have significant anemia and was directed to the emergency room on that basis. She has had dark stool, though initially not to have such a finding. Her hematocrit was noted to be 19.4 with a platelet count of 236,000 and creatinine was noted to be 1.34. Liver enzymes were normal. Her BNP was 232. A chest x-ray showed mild CHF and mild basilar atelectasis. The patient has a longstanding history of episodic anemia. She has had what is considered nonalcoholic steatohepatitis (CASAS) accounting for cirrhosis, but no prior evidence of esophageal varices. She was noted to be hypotensive on admission with a MAP of 55. She has had mild longstanding elevated creatinine. Transfusion was undertaken under the direction of Dr. Dudley upon her admission. Her initial hematocrit was 19.4 and following transfusion 22.2. The patient denies any abdominal pain particularly. She has no dysphagia. She has had no hematemesis. MEDICATIONS: At admission included: 1. Benadryl. 2. Vitamin D2. 3. Gabapentin (Neurontin). 4. Lactulose. 5. Magnesium glycinate. 6. Paroxetine. 7. As well as spironolactone 50 mg daily. ALLERGIES: The patient has allergy to Dilaudid. SOCIAL HISTORY: Electronically Signed By: KINA SHERWOOD MD 12/29/21 1312 PATIENT NAME: TREE GARCIA CONSULTATION DATE OF : 44 REPORT #: [id number] PHYSICIAN: KINA SHERWOOD MD PCP: IVON GARRIDO MD REPORT IS CONFIDENTIAL AND NOT TO BE RELEASED WITHOUT AUTHORIZATION [facility] [address] [place], [place] [address] Signed She is . She says her of "natural causes." She is not quite sure what he from, but informed staff knows him to have had congestive heart failure and other problems including COPD. She lives independently in [place] herself as a now. PHYSICAL EXAMINATION: GENERAL: Pleasant white woman, who looks to be in no distress. VITAL SIGNS: Her temperature is 97.6, pulse 96, blood pressure 105/50, room air saturation 97%. NECK: There is no thyromegaly or cervical adenopathy. CARDIAC: Shows a mid systolic ejection murmur of uncertain etiology. It is notable in the left and right parasternal areas. Notably, chest x-ray that was performed on December 27 to my exam shows scoliosis, but no evidence of pleural fluid accumulation and there is mild cephalization of vessels. An abdominal ultrasound was additionally performed, which showed a cirrhotic liver and mild splenomegaly. There is uncertain as to portal vein patency. The gallbladder was not evaluated as she was not n.p.o. A very limited exam is noted. ABDOMEN: Shows a very obese abdomen, but no evidence of obvious ascites. EXTREMITIES: Show mild edema. There are no petechiae. LABORATORY STUDIES: Show a hemoglobin at 12:15 today of 8.0, platelets earlier in the day of 201,000. Chem profile is essentially normal. Calcium 7.9. Ammonia level is 42.0 yesterday. Albumin is low at 2.2, total bilirubin 1.3, AST 52, ALT 31, alkaline phosphatase 269. Initial creatinine was 1.34, currently 0.85. Coag studies show an INR of 1.44, PT of 17.1. COVID serology is negative. ASSESSMENT: The patient has dark stool and significant anemia with underlying cirrhotic changes of the liver without known portal hypertension and without thrombocytopenia. Upper endoscopy is appropriate to assess for a source of blood loss quite obviously and she may by this point have developed esophageal varices. Initially colonoscopy would be undertaken. She tells me that she believes her father may have had colon cancer, though she is not certain. She herself has had polyps, she thinks. Review of previous reports includes an operative report on April 01, 2019, for solid-food dysphagia after transient meat impaction by Dr. Marcelo Long. A discharge note from Dr. Ji on November 22, 2021, is reviewed, having been admitted for hepatic hydrothorax. No doubt related to her underlying cirrhosis. As has been recommended by Dr. Dudley and subsequently Dr. Silverio, I would concur that upper endoscopy and colonoscopy be undertaken. The risks of bleeding, infection, perforation, and other unforeseen complications was reviewed in detail. We will plan to do this tomorrow with IV sedation as per the Anesthesia Service, given her numerous comorbidities. Electronically Signed By: KINA SHERWOOD MD 12/29/21 1312 PATIENT NAME: TREE GARCIA CONSULTATION DATE OF : 44 REPORT #: [id number] PHYSICIAN: KINA SHERWOOD MD PCP: IVON GARRIDO MD REPORT IS CONFIDENTIAL AND NOT TO BE RELEASED WITHOUT AUTHORIZATION [facility] [address], [place] [address] Signed MD BOAZ Green/OMER /[id number] cc: MD Ivon Kee MD Prasheen Shah, MD Copies: MALLORY SILVERIO MD, PRASHEEN MD ~ Electronically Signed By: KINA SHERWOOD MD 12/29/21 1312 PATIENT NAME: TREE GARCIA CONSULTATION DATE OF : 44 REPORT #: [id number] PHYSICIAN: KINA SHERWOOD MD PCP: IVON GARRIDO MD REPORT IS CONFIDENTIAL AND NOT TO BE RELEASED WITHOUT AUTHORIZATION
[2021-12-29] MEDS ORDERED: OMEPRAZOLE20 MG PO (13:48)
[2021-12-29] MEDS ORDERED: SUCRALFATE1 GM PO (13:49)
[2021-12-29] MEDS ORDERED: FERROUS SULFAT325 MG PO (13:55)
--- NOTE | 2021-12-30 16:29 | PATH ---
[facility] [address] [place], [place] [address] Signed SPECIMEN(S): A DUODENAL BIOPSY SPECIMEN(S): B ANTRUM/PYLORUS BIOPSY SPECIMEN(S): C LOWER ESOPHAGEAL BIOPSY SPECIMEN SOURCE: A. DUODENAL BIOPSY B. ANTRUM/PYLORUS BIOPSY C. LOWER ESOPHAGEAL BIOPSY CLINICAL HISTORY: Acute or chronic anemia, hypotension; decompensated liver cirrhosis. Postop: Gastritis, diverticulosis, polyp x 1 (no specimen). FINAL PATHOLOGIC DIAGNOSIS: A. Duodenum, biopsy: - Duodenal mucosa with no significant pathologic changes. B. Stomach, antrum/pylorus, biopsy: - Gastric antral mucosa with no significant pathologic changes. - Negative for Helicobacter pylori with HE stains. C. Esophagus, lower, biopsy: - Squamoglandular mucosa with no significant pathologic changes; negative for intestinal metaplasia. BRP:em:[id number] MICROSCOPIC EXAMINATION: Histologic sections of all submitted blocks are examined by light microscopy. These findings, together with the gross examination, support the pathologic diagnosis. GROSS DESCRIPTION: Three specimens are received in three containers, labeled "MB." A. The specimen, labeled "MB, 1," and designated on the requisition "duodenum," is received in formalin and consists of two erickson soft tissue fragments that measure 0.3 cm in greatest dimension. The specimen is entirely submitted in cassette (A1). B. The specimen, labeled "MB, 2," and designated on the requisition "antrum/pylorus," is received in formalin and consists of two erickson soft tissue fragments that measure 0.3 cm in greatest dimension. The specimen is entirely submitted in cassette (B1). C. The specimen, labeled "MB, 3," and designated on the requisition "lower esophagus," is received in formalin and consists of three minute erickson soft PATIENT NAME: TREE GARCIA PATHOLOGY DATE OF : 44 REPORT #: [id number] PHYSICIAN: MIGUEL JANSEN PCP: KRUNAL SOLANO MD REPORT IS CONFIDENTIAL AND NOT TO BE RELEASED WITHOUT AUTHORIZATION [facility] [address] [place], [place] [address] Signed tissue fragments that measure up to 0.2 cm in greatest dimension. The specimen is filtered, inked with eosin, and entirely submitted in cassette (C1). AT (under the direct supervision of a pathologist) The Gross Description was prepared using a voice recognition system. The report was reviewed for accuracy; however, sound-alike word errors, addition and/or deletions may occur. If there is any question about this report, please contact Client Services. PERFORMING LABORATORY: The technical component was performed by [facility] [address] [place] [id number] (CLIA# [id number]). Professional interpretation was performed by [facility], [facility], [address] [place] [id number] (CLIA#: [id number]). Diagnostician: Costa Thorne MD Pathologist Electronically Signed 12/30/2021 Copies: ~ PATIENT NAME: TREE GARCIA PATHOLOGY DATE OF : 44 REPORT #: [id number] PHYSICIAN: MIGUEL PATHOLOGY PCP: KRUNAL SOLANO MD REPORT IS CONFIDENTIAL AND NOT TO BE RELEASED WITHOUT AUTHORIZATION
== END 2021-12-29 15:00 | disposition home or self-care (01) | DRG 812 ==
LOC: ED 16:23 → CCU 20:59 → MS 12-28 12:00
PROVIDERS: Surgery; ADMIT Hospitalist; ATTEND Hospitalist
PROC: 0DB98ZX Excision of Duodenum, Via Natural or Artificial Opening Endoscopic, Diagnostic (ICD-10-PCS; 2021-12-29)
PROC: 0DB38ZX Excision of Lower Esophagus, Via Natural or Artificial Opening Endoscopic, Diagnostic (ICD-10-PCS; 2021-12-29)
PROC: 0DB78ZX Excision of Stomach, Pylorus, Via Natural or Artificial Opening Endoscopic, Diagnostic (ICD-10-PCS; 2021-12-29)
PROC: 30233N1 Transfusion of Nonautologous Red Blood Cells into Peripheral Vein, Percutaneous Approach (ICD-10-PCS; principal; 2021-12-29 09:30)
PROC: 0DBL8ZZ Excision of Transverse Colon, Via Natural or Artificial Opening Endoscopic (ICD-10-PCS; 2021-12-29 09:30)
DX: D64.9 Anemia, unspecified (principal); J98.11 Atelectasis; N17.9 Acute kidney failure, unspecified; K29.70 Gastritis, unspecified, without bleeding; I95.9 Hypotension, unspecified; K63.5 Polyp of colon; K57.30 Diverticulosis of large intestine without perforation or abscess without bleeding; Z20.822 Contact with and (suspected) exposure to COVID-19; K74.60 Unspecified cirrhosis of liver; R29.6 Repeated falls; K75.81 Nonalcoholic steatohepatitis (NASH); Z88.6 Allergy status to analgesic agent; Z79.899 Other long term (current) drug therapy
CPT/HCPCS: 36415; 71045; 76700; 80048; 80053; 82140; 83735; 83880; 84484; 85018; 85025; 85060; 85610; 86850; 86900; 86901; 86922; 87502; 93005; 93010; C9113; J0690; J2001; J2704; J7121; P9016; U0003

== ENCOUNTER 2022-01-06 18:44 | Emergency (ER) | payer OTHER, MEDICARE ==
[~2022-01-06] VITALS: Ht 162.6 cm; Wt 80.3 kg
[~2022-01-06 18:44] MED LIST changes: +BENADRYL25 MG PO; +CONSTULOSE10 GM/15 M PO; +FERROUS SULFAT325 MG PO; +LACTULOSE10 GM/152 PO; +MAG GLYCINATE100 MG PO; +SUCRALFATE1 GM PO
--- OUTSIDE RECORDS SUMMARY | 2022-01-06 18:46 | XMS ---
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 Care History Medical/Surgical 10/21/2021 [facility] Patient has follow up with DR. Garrido on 10/27/2021 10/20/2021 [facility] - Patient is currently established with [facility]. If patient is seen in the ED during business hours. Please contact CHWs at [facility]. Care Recommendation: This patient has had 5 or more Emergency Department visits in the last 12 months.\T\nbsp; Patient requires education on the scope and purpose of the ED as an acute care provider not a Primary Care Provider and should not be utilized for chronic conditions.\T\nbsp; These are guidelines and the provider should exercise clinical judgment when providing care. 07/13/2021 [facility] Frida Li saw patient on 07/07/2021 for left side pain, due to falling at home, and advised if health/pain becomes worse to see PCP or go to ER. No follow up scheduled at this time. [facility] NOTE: Visits indicate total known visits. 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 - Type 2 diabetes [...] drugs, medicaments and biological substances - 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 - Type 2 diabetes mellitus without complications 11/07/2021 19:03 [facility] [place] TYPE: Emergency COMPLAINT: - URINE PROBLEM DIAGNOSES: - Urinary tract infection, site not specified - Allergy status to narcotic agent - Allergy to other foods - Hyperlipidemia, unspecified - Type 2 diabetes mellitus without complications - Dysuria - Other correction (current) drug therapy - Essential (primary) hypertension [...] of lower back, initial encounter - 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 - Nausea with vomiting, unspecified - Fall on same level, unspecified, initial encounter - Hyperlipidemia, unspecified 08/08/2021 20:33 [facility] [place] TYPE: Emergency COMPLAINT: - ABD PAIN DIAGNOSES: - Other correction (current) drug therapy - Unspecified osteoarthritis, unspecified site - Allergy status to narcotic agent - Left lower quadrant pain - Essential (primary) hypertension - Hyperlipidemia, unspecified - Type 2 diabetes mellitus without complications 07/09/2021 15:56 [facility] [place] TYPE: Emergency COMPLAINT: - LOWER ABDOMINAL PAIN DIAGNOSES: - Type 2 diabetes mellitus without complications - Hyperlipidemia, unspecified - Other correction (current) drug therapy - Allergy status to narcotic agent - Essential (primary) hypertension - Lower abdominal pain, unspecified 05/25/2021 14:46 [facility] [place] TYPE: Emergency COMPLAINT: - WEAKNESS, HEADACHE DIAGNOSES: - Type 2 diabetes mellitus without complications - Contact with and (suspected) exposure to COVID-19 - Unspecified osteoarthritis, unspecified site - 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 - Allergy status to analgesic agent - Hypotension, unspecified - Unspecified cirrhosis of liver - Hypotension, unspecified - Diverticulosis of large intestine without perforation or abscess without bleeding - Polyp of colon - Diverticulosis of large intestine without perforation or abscess without bleeding - Repeated falls - Nonalcoholic steatohepatitis (CASAS) - Acute kidney failure, unspecified - Contact with and (suspected) exposure to COVID-19 - Atelectasis - Polyp of colon - Contact with and (suspected) exposure to COVID-19 - Gastritis, unspecified, without bleeding - Acute kidney failure, unspecified - Repeated falls - Allergy status to analgesic agent - Unspecified cirrhosis of liver - Gastritis, unspecified, without bleeding 11/16/2021 09:11 [facility] [place] TYPE: Medical Surgical COMPLAINT: - HEPATIC HYDROTHORAX DIAGNOSES: - Chronic pain syndrome - Allergy to other foods - Other specified postprocedural states - Coagulation defect, unspecified - Presence of left artificial knee joint - Hyperlipidemia, unspecified - Presence of artificial hip joint, bilateral - Type 2 diabetes mellitus without complications - Unspecified cirrhosis of liver - watermelon inspector (current) use of anticoagulants - Other specified pleural conditions - Chronic pain syndrome - Unspecified cirrhosis of liver - 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
== END 2022-01-06 21:08 | disposition home or self-care (01) ==
LOC: ED 18:44
DX: S00.03XA Contusion of scalp, initial encounter (principal); W01.198A Fall on same level from slipping, tripping and stumbling with subsequent striking against other object, initial encounter; E11.9 Type 2 diabetes mellitus without complications; I10 Essential (primary) hypertension; E78.5 Hyperlipidemia, unspecified; M19.90 Unspecified osteoarthritis, unspecified site; Z88.5 Allergy status to narcotic agent; Z79.899 Other long term (current) drug therapy
CPT/HCPCS: 70450; 99284-25

== ENCOUNTER 2022-01-10 14:54 | Inpatient (IN) | payer MEDICARE ==
[~2022-01-10] VITALS: Ht 162.6 cm; Wt 83.5 kg
--- OUTSIDE RECORDS SUMMARY | 2022-01-10 14:56 | XMS ---
PreManage Notification: TREE GARCIA Security Research Tech Events No recent Security Events currently on file CRITERIA MET - [facility] - 2 Visits in 30 Days - 6 ED Visits in 6 Months - PDMP - [facility] - Has Care Guidelines CARE PROVIDERS KING CAPUTO Nurse Practitioner: 03/21/2019-Current PHONE: Unknown KRUNAL GARRIDO [facility] 05/26/2021-Current PHONE: [phone] Artis has no Care Guidelines for this patient. Care History Medical/Surgical 10/21/2021 [facility] Patient has follow up with DR. Garrido on 10/27/2021 10/20/2021 [facility] - Patient is currently established with [facility]. If patient is seen in the ED during business hours. Please contact CHWs at [facility]. Care Recommendation: This patient has had 5 or more Emergency Department visits in the last 12 months.\T\nbsp; Patient requires education on the scope and purpose of the ED as an acute care provider not a Primary Care Provider and should not be utilized for chronic conditions.\T\nbsp; These are guidelines and the provider should exercise clinical judgment when providing care. 07/13/2021 [facility] Frida Li saw patient on 07/07/2021 for left side pain, due to falling at home, and advised if health/pain becomes worse to see PCP or go to ER. No follow up scheduled at this time. [facility] MO[facility] NOTE: Visits indicate total known visits. ED/UCC VISIT TRACKING (12 MO.) [facility]22 [facility] COMPLAINT: - SHORTNESS OF BREATH 01/06/2022 18:44 [facility] [place] TYPE: Emergency COMPLAINT: - FALL/HEADACHE DIAGNOSES: - Type 2 diabetes mellitus without complications - [facility] [place] [facility] [place] drug therapy - Unspecified osteoarthritis, unspecified site - Contusion of scalp, initial encounter - Hyperlipidemia, unspecified - Essential (primary) hypertension - Headache, unspecified - Allergy status to narcotic agent - Fall on same level from slipping, tripping and stumbling with subsequent striking against other object, initial encounter 12/27/2021 16:24 [facility] [place] TYPE: Emergency COMPLAINT: - ABNORMAL LABS 12/17/2021 07:39 [facility] [place] TYPE: Emergency COMPLAINT: - R FLANK PAIN DIAGNOSES: - Shortness of breath - Essential (primary) hypertension - Hyperlipidemia, unspecified - Unspecified osteoarthritis, unspecified site - Pleural effusion, not elsewhere classified - Allergy status to narcotic agent - Other exterminator helper termite (current) drug therapy - Type 2 diabetes [...] drugs, medicaments and biological substances - Other exterminator helper termite (current) drug therapy - Type 2 diabetes mellitus without complications 11/07/2021 19:03 [facility] [place] TYPE: Emergency COMPLAINT: - URINE PROBLEM DIAGNOSES: - Urinary tract infection, site not specified - Allergy status to narcotic agent - Allergy to other foods - Hyperlipidemia, unspecified - Type 2 diabetes mellitus without complications - Dysuria - Other [place] [facility] (current) drug therapy - Essential (primary) hypertension [...] of lower back, initial encounter - Other [place] [facility] (current) drug therapy - Nausea with vomiting, unspecified - Fall on same level, unspecified, initial encounter - Hyperlipidemia, unspecified 08/08/2021 20:33 [facility] [place] TYPE: Emergency COMPLAINT: - ABD PAIN DIAGNOSES: - Other exterminator helper termite (current) drug therapy - Unspecified osteoarthritis, unspecified site - Allergy status to narcotic agent - Left lower quadrant pain - Essential (primary) hypertension - Hyperlipidemia, unspecified - Type 2 diabetes mellitus without complications 07/09/2021 15:56 [facility] [place] [facility] [place] TYPE: Emergency COMPLAINT: - LOWER ABDOMINAL PAIN DIAGNOSES: - Type 2 diabetes mellitus without complications - Hyperlipidemia, unspecified - Other [place] [facility] (current) drug therapy - Allergy status to narcotic agent - Essential (primary) hypertension - Lower abdominal pain, unspecified 05/25/2021 14:[address] [facility] [facility] [place] TYPE: Emergency COMPLAINT: - WEAKNESS, HEADACHE DIAGNOSES: - Type 2 diabetes mellitus without complications - Contact with and (suspected) exposure to COVID-19 - Unspecified osteoarthritis, unspecified site - Other [place] [facility] (current) drug therapy - Anemia, unspecified - Allergy status to narcotic agent - Weakness - Essential (primary) hypertension - Hyperlipidemia, unspecified INPATIENT VISIT TRACKING (12 MO.) 12/27/2021 20:[address] [facility] [place] TYPE: Medical Surgical COMPLAINT: - ACUTE ON CHRONIS ANEMIA HYPOTENSION DIAGNOSES: - Anemia, unspecified - Atelectasis - Other exterminator helper termite (current) drug therapy - Nonalcoholic steatohepatitis (CASAS) - Other exterminator helper termite (current) drug therapy - Allergy status to [...] - Gastritis, unspecified, without bleeding 11/16/2021 09:[address] [facility] [address] [facility] [place] TYPE: Medical Surgical COMPLAINT: - HEPATIC HYDROTHORAX DIAGNOSES: - Chronic pain syndrome - Allergy to other foods - Other specified postprocedural states - Coagulation defect, unspecified - Presence of left artificial knee joint - Hyperlipidemia, unspecified - Presence of artificial hip joint, bilateral - Type 2 diabetes mellitus without complications - Unspecified cirrhosis of liver - exterminator helper termite (current) use of anticoagulants - Other specified pleural conditions - Chronic pain syndrome - Unspecified cirrhosis of liver - Other [place] [facility] (current) drug therapy - Contact with and [...] coli] - Severe sepsis without septic shock [id number]
--- NOTE | 2022-01-12 18:16 | EKG ---
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
[2022-01-14] MEDS ORDERED: AMOX TR-K CLV1 EACH PO (14:14)
== END 2022-01-14 16:30 | disposition home or self-care (01) | DRG 177 ==
LOC: ED 14:54 → MS 17:43
PROVIDERS: ADMIT Internal Medicine; ATTEND Internal Medicine
DX: J15.6 Pneumonia due to other Gram-negative bacteria (principal); J96.01 Acute respiratory failure with hypoxia; R18.8 Other ascites; E87.1 Hypo-osmolality and hyponatremia; J98.11 Atelectasis; J91.8 Pleural effusion in other conditions classified elsewhere; K74.60 Unspecified cirrhosis of liver; Z20.822 Contact with and (suspected) exposure to COVID-19; D64.9 Anemia, unspecified; G89.4 Chronic pain syndrome; E78.5 Hyperlipidemia, unspecified; E11.9 Type 2 diabetes mellitus without complications; I10 Essential (primary) hypertension; M19.90 Unspecified osteoarthritis, unspecified site; K76.0 Fatty (change of) liver, not elsewhere classified; Z96.643 Presence of artificial hip joint, bilateral; Z96.652 Presence of left artificial knee joint; Z87.19 Personal history of other diseases of the digestive system; Z90.49 Acquired absence of other specified parts of digestive tract; Z90.89 Acquired absence of other organs; Z98.890 Other specified postprocedural states; Z88.6 Allergy status to analgesic agent; Z79.899 Other long term (current) drug therapy
CPT/HCPCS: 36415; 71045; 71046; 80048; 80053; 81001; 82140; 83880; 85025; 85060; 85610; 87502; 93005; 93010; 94660; 94760; 94761; 94762; 97162; 97165; A9270; C9803; J0456; J1940; J2405; J2543; U0003

== ENCOUNTER 2022-01-16 19:54 | Inpatient (IN) | payer MEDICARE ==
[~2022-01-16] VITALS: Ht 162.6 cm; Wt 76.8 kg
[~2022-01-16 19:54] MED LIST changes: +AMOX TR-K CLV1 EACH PO
--- OUTSIDE RECORDS SUMMARY | 2022-01-16 19:56 | XMS ---
PreManage Notification: TREE GARCIA Security Trackwalker Events No recent Security Events currently on file CRITERIA MET - [facility] - 2 Visits in 30 Days - 6 ED Visits in 6 Months - PDMP - [facility] - Has Care Guidelines CARE PROVIDERS KING CAPUTO Nurse Practitioner: 03/21/2019-Current PHONE: Unknown KRUNAL GARRIDO [facility] 05/26/2021-Current PHONE: Unknown Artis has no Care Guidelines for this patient. Care History Medical/Surgical 10/21/2021 [facility] Patient has follow up with DR. Garrido on 10/27/2021 10/20/2021 [facility] - Patient is currently established with [facility]. If patient is seen in the ED during business hours. Please contact CHWs at [facility]. Care Recommendation: This patient has had 5 or more Emergency Department visits in the last 12 months.\T\nbsp; Patient requires education on the scope and purpose of the ED as an acute care provider not a Primary Care Provider and should not be utilized for chronic conditions.\T\nbsp; These are guidelines and the provider should exercise clinical judgment when providing care. 07/13/2021 [facility] Frida Li saw patient on 07/07/2021 for left side pain, due to falling at home, and advised if health/pain becomes worse to see PCP or go to ER. No follow up scheduled at this time. E.D. VIS[facility] (12 MO.) [facility] NOTE: Visits indicate total known visits. ED/UCC VISIT TRACKING (12 MO.) [facility]22 [facility] COMPLAINT: - SHOB 01/10/2022 14:55 [facility] [place] TYPE: Emergency COMPLAINT: - SHORTNESS OF [...] Allergy status to narcotic agent - Other ferry terminal agent (current) drug therapy - Type 2 diabetes [...] drugs, medicaments and biological substances - [facility] [place] [facility] [place] drug therapy - Type 2 diabetes mellitus without complications 11/07/2021 19:03 [facility] [place] TYPE: Emergency COMPLAINT: - URINE [...] back, initial encounter - Other ferry terminal agent (current) drug therapy - Nausea with vomiting, unspecified - Fall on same level, unspecified, initial encounter - Hyperlipidemia, unspecified 08/08/2021 20:33 [facility] [place] TYPE: Emergency COMPLAINT: - ABD PAIN DIAGNOSES: - [facility] [place] [facility] (current[place] [...] Hyperlipidemia, unspecified INPATIENT VISIT TRACKING (12 MO.) 01/10/2022 17:[address] [facility] [place] TYPE: Medical Surgical COMPLAINT: - PNEUMONIA DIAGNOSES: - Pneumonia due to other Gram-negative bacteria - Acute respiratory failure with hypoxia - Pneumonia due to other Gram-negative bacteria - Hypo-osmolality and hyponatremia - Acquired absence of other organs - Fatty (change of) liver, not elsewhere classified - Presence of left artificial knee joint - Pleural effusion in other conditions classified elsewhere - Essential (primary) hypertension - Acquired absence of other organs - Type 2 diabetes mellitus without complications - Other [place] [facility] (current[place] drug therapy - Hypo-osmolality and hyponatremia - Other specified postprocedural states - Other ascites - Acute respiratory failure with hypoxia - Essential (primary) hypertension - Unspecified cirrhosis of liver - Anemia, unspecified - Type 2 diabetes mellitus without complications - Contact with and (suspected) exposure to COVID-19 - Atelectasis - Allergy status to analgesic agent - Contact with and (suspected) exposure to COVID-19 - Pneumonia, unspecified organism - Unspecified osteoarthritis, unspecified site - Presence of artificial hip joint, bilateral - Other [place] [facility] (current) drug therapy - Personal history of other diseases of the digestive system - Chronic pain syndrome - Presence of left artificial knee joint - Hyperlipidemia, unspecified - Other specified postprocedural states - Other ascites - Acquired absence of other specified parts of digestive tract - Fatty (change of) liver, not elsewhere classified - Chronic pain syndrome - Pleural effusion in other conditions classified elsewhere - Anemia, unspecified - Unspecified osteoarthritis, unspecified site - Hyperlipidemia, unspecified - Atelectasis - Presence of artificial hip joint, bilateral - Personal history of other diseases of the digestive system - Acquired absence of other specified parts of digestive tract - Unspecified cirrhosis of liver - Allergy status to analgesic agent 12/27/2021 20:59 [facility] [place] TYPE: Medical Surgical COMPLAINT: - ACUTE ON CHRONIS ANEMIA HYPOTENSION DIAGNOSES: - Anemia, unspecified - Atelectasis - [facility] [place] [facility] [place]current[facility] drug therapy - Nonalcoholic steatohepatitis (CASAS) - Other [place] [facility] (current) [...] complications - Unspecified cirrhosis of liver - shelter (current) use of anticoagulants - Other specified [...] coli] - Severe sepsis without septic shock [email or web address]
--- NOTE | 2022-01-16 23:45 | NUR ---
PT ARRIVED TO THE FLOOR IN NO ACUTE DISTRESS. PT ARRIVED ON 15L VIA OXY MASK, WAS ABLE TO TITRATE DOWN TO 3L VIA OXY MASK. NO S.SX OF ANY RESP DISTRESS , FINE CRACKLES NOTED TO LEFT LOBE AND RT LOWER. CALL LIGHT WITHIN REACH . VSS WILL CONTINUE TO MONITOR.
--- NOTE | 2022-01-17 01:26 | NUR ---
PT CALLS TO REPORT THAT SHE NEEDED A BED CHANGE. PURE WICK IN PLACE, COMPLETE BED CHANGE AND CHANGED PURE WICK AND PLACED ATTENDS ON PT.. CALL LIGHT WITHIN REACH WILL CONTINUE TO MONITOR.
--- NOTE | 2022-01-17 01:30 | NUR ---
2 PA CHANGED BED LINEN. CHANGED PUREWICK. CALL LIGHT WITHIN REACH.
--- NOTE | 2022-01-17 03:13 | NUR ---
PT SLEEPING IN BED IN NO ACUTE DISTRESS. PT RESP EVEN AND UNLABORED. WILL CONTINUE TO MONITOR.
--- NOTE | 2022-01-17 05:42 | NUR ---
PT SITTING UP IN BED IN NO ACUTE DISTRESS. PT ASKING FOR JELLO, TOLERATING PO WELL. PT REPORTS FEELING ALOT BETTER. VSS RESP EVEN AND UNLABORED. NO S/SX OF ANY DISTRESS NOTED. PT REMAINS ON 3L PER OXY MASK 91% CALL LIGHT WITHIN REACH WILL CONTINUE TO MONITOR.
--- NOTE | 2022-01-17 07:15 | NUR ---
BEDSIDE HANDOFF REPORT RECEIVED FROM PEDIATRIC CLINICAL NURSE SPECIALIST RN. PT SLEEPING, OXYMASK IN PLACE AT 3L.
--- NOTE | 2022-01-17 08:25 | NUR ---
PT RESTIGN IN BED, REPOSITIONED. SWITCHED OXYGEN FROM OXYMASK TO NC AT 3L, O2 SATS 96%, ATTEMPTED TO WEAN TO 2L BUT DESAT TO 88-89% INCREASED BACK TO 3L. LUNG SOUNDS COARSE WITH CRACKLES, VERY DIMINISHED IN RIGHT LOWER LOBE, PT DENIES SOB AND STATES SHE FEELS MUCH BETTER THIS MORNING. HR REGULAR, MURMUR PRESENT. BOWEL TONES HYPOACTIVE, DENIES NAUSEA, GOOD APPETITE. WITHOUT EDEMA, CMS INTACT. SPIRONOLACTONE HELD FOR LOW MAP, WILL DISCUSS WITH MD. PT DENIES OTHER NEEDS AT THIS TIME.
--- NOTE | 2022-01-17 08:40 | NUR ---
INTO SEE PATIENT, CASE MANAGEMENT ASSESSMENT COMPLETE. DISCUSSED PATIENTS RECENT ADMISSION AND THE EFFORTS TO DISCHARGE TO SNF/ASUNCION. PATIENT STATES THAT AT THIS TIME SHE FEELS THAT SHE COULD CARE FOR HERSELF AT HOME. QUESTIONED THE PATIENT ABILITY TO STAND FOR 30+ MINUTES WHILE COOKING, WALK TO THE BATHROOM AND SHOWER. PATIENT FEELS SHE IS ABLE TO COOK AND TOLIET HERSELF. PATIENT STATES SHOWERING HAS BEEN DIFFICULT SHE MUST STEP INTO THE BATHTUB TO SHOWER. DISCUSSED HOSPICE OPTION AND ADVISED THE PATIENT SHE WOULD NEED 24 HOUR CARE AT HOME WHICH THE PATIENT DOES NOT HAVE. I ADVISED PATIENT THAT I WILL SPEAK WITH LULY AND DR. SILVERIO THEN RETURN TO SPEAK WITH HERE LATER TODAY.
--- NOTE | 2022-01-17 08:55 | NUR ---
DISCUSSED BP AND HELD SPIRONOLACTONE WITH DR. SILVERIO, VERBAL ORDER TO GIVE DOSE AT 1200, ORDER ENTERED.
--- NOTE | 2022-01-17 09:47 | NUR ---
PATIENT IN BED WATCHING TV. VITALS AND I&O'S CHARTED. PATIENT REFUSED AM CARE. CALL LIGHT IN REACH. NO FURTHER NEEDS AT THIS TIME.
--- NOTE | 2022-01-17 10:20 | NUR ---
PT INVOLVED ON CONVERSATION ON PHONE. WILL CHECK BACK AND ARRANGE FOR VISIT FROM TODAY.
--- NOTE | 2022-01-17 10:41 | NUR ---
SPOKE WITH KATIA AT [facility]. KATIA WILL CONTACT LULY TO SET UP A TIME TO ASSESS THE PATIENT FOR SERVICES.
--- NOTE | 2022-01-17 12:30 | NUR ---
Spoke with Pavan from [facility]. Updated I am sending the pts chart. She has a 4 night stay last week. Per Pavan they may have a bed open on Mon or .
--- NOTE | 2022-01-17 14:04 | EKG ---
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
--- NOTE | 2022-01-17 14:17 | NUR ---
PATIENT BACK TO BED FROM CHAIR, 1PA. VITALS AND I&O'S CHARTED. CALL LIGHT IN REACH. NO FURTHER NEEDS AT THIS TIME.
--- NOTE | 2022-01-17 16:26 | NUR ---
CHART FAXED TO [facility] FOR POSSIBLE PLACEMENT.
--- NOTE | 2022-01-17 16:39 | NUR ---
PER JADEN AT DESIRE FOR HEALING, JADEN AND TONO FRANCIS WILL COME UP TO ASSESS THE PATIENT FOR POSSIBLE PLACEMENT 01/18/22 @ 1000. WILL UPDATE STAFF.
--- NOTE | 2022-01-17 17:57 | NUR ---
PATIENT SITTING UP IN BED. VITALS AND I&O'S CHARTED. CALL LIGHT IN REACH. NO FRUTHER NEEDS AT THIS TIME.
--- NOTE | 2022-01-17 17:57 | NUR ---
PURE WICK CATH REMOVED, DISCUSSED WITH PT THAT SHE SHOULD CALL TO GET TO BSC OR BATHROOM. 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 PT DENIES OTHER NEEDS AT THIS TIME.
--- NOTE | 2022-01-17 18:12 | NUR ---
PT ASSISTED TO BSC, VOIDED, ASSISTED BACK TO BED. 1PA WITH FWW. PT PROVIDED WITH WARM BLANKET. PT DENIES OTHER NEEDS AT THIS TIME.
--- NOTE | 2022-01-17 19:41 | NUR ---
Patient in bed resting, no distress. Patient is on 3L oxygen per nc, respirations non labored. Patient denies pain at this time. No current needs, personal supplies and call light within reach.
--- NOTE | 2022-01-17 19:51 | NUR ---
PT. CALLED NURSE STATION FOR ASSISTANCE TO BSC. ASSISTANCE PROVIDED. PATIENT OUTPUT CHARTED ACCORDINGLY. PT. VITALS PRO/OS CHARTED. FRESH ICE WATER PROVIDED. WARM BLANKET GIVEN. TRASH CANS EMPTIED. CALL LIGHT LEFT WITHIN REACH. NO OTHER IMMEDIATE NEEDS AT THIS TIME.
--- NOTE | 2022-01-17 21:41 | NUR ---
PT CALLED, [facility] [facility]WW TO [facility] [place]. VISITED AND ENOURAGED HER TO CONSIDER TO NOT LIVE ALONE. HER SAFETY, WELL SHE WOULD MAKE FRIENDS. BACK TO BED, SCD'S PLACED. CALL LIGHT WITHIN REACH. NO OTHER NEEDS.
--- NOTE | 2022-01-17 23:40 | NUR ---
answered call light. 1 pa .bedside commode. fww. patient voided 200 ml. patient stated needs help tp wipe/johana care due to cannot reach. patient is back in bed. scd's on. no other needs at this time. room lights off. drape open door shot.
--- NOTE | 2022-01-18 01:03 | NUR ---
Pt used urinal at this time, 100ml clear yellow urine noted. Patient declined further needs.
--- NOTE | 2022-01-18 02:28 | NUR ---
Patient resting in bed, eyes closed, respirations non labored. Patient has no distress. Personal supplies and call light within reach.
--- NOTE | 2022-01-18 04:00 | NUR ---
PT. CALLED REQUESTING ASSISTANCE TO BSC. PT. PROVIDED WITH WARM BLANKET. SCD'S IN PLACE. I/OS CHARTED. CALL LIGHT LEFT WITHIN REACH. NO OTHER IMMEDIATE NEEDS AT THIS TIME.
--- NOTE | 2022-01-18 05:03 | NUR ---
Patient resting in bed, eyes closed, respirations even and non labored. Patient remains on 4L oxygen per nc, no resp distress noted. Personal supplies and call light within reach.
--- NOTE | 2022-01-18 07:41 | NUR ---
RECD. BEDSIDE REPORT FROM NIGHT RN, ASSUMED CALL CARE OF PT.
--- NOTE | 2022-01-18 09:12 | NUR ---
PT UP TO COMMODE W/STBY ASSIST. THIS CNA2 PERFORMED NEVAEH CARE WELL NEW DEPENDS. TRANSFERED PT BACK TO BED W/STBY ASSIST. CHANGED GOWN, DENTURE CARE, HAIR BRUSHED, FACE WASHED, WARM BLANKET. PT RESTING IN BED WITH CALL LIGHT IN REACH. MO OTHER NEEDS AT THIS TIME.
--- NOTE | 2022-01-18 10:00 | NUR ---
Trista and Helene here from [facility] to evaluate pt for placement. Pt introduced to both and in good humor.
--- NOTE | 2022-01-18 11:18 | NUR ---
Call light answered, pt assisted to use BSC for small loose BM and unmeasured void. BM dark in color and has greenish tint, primary RN notified and in room. Warm blanket provided. Call light in reach.
--- NOTE | 2022-01-18 11:23 | NUR ---
ROUNDS ON PT. , SHE IS ASSISTED BACK TO BED AFTER A SECOND BM, SMALL, GREEN, FORMED STOOL. BROUGHT PT. A SMALL GUIDEPOST BOOK TO READ. SCD'S IN PLACE.
--- NOTE | 2022-01-18 11:30 | NUR ---
Received call from Trista. They will accept this pt when she has payment. She requests I contact [facility]. Let her know I will do so today and ask if they can complete the physical assessment this week. Updated Dr. Ji, she feels it would best if pt remains in the hospital until placed as she has had multiple admits and ER visits. Pt is unable to care for self at home.
--- NOTE | 2022-01-18 11:55 | NUR ---
Called and spoke with Bety at [facility]. She IMd Pranav who is assigned to [facility]. He agrees to see Mary at the hospital and complete Physical assessment on Monday to see if she will qualify for terminal carman medicaid to pay for [facility]. Dr. Ji updated.
--- NOTE | 2022-01-18 12:03 | NUR ---
PT DC'D OVER THE WEEKEND AND IS BACK. HAD DISCUSSION WITH PT REGARDING HER HEALTH AND SPIRITUAL NEEDS. SAID SHE IS VERY COMFORTABLE WITH A PARTICULAR PRTIEST WHO HAS VISITED,AND WOULD LIKE FR IYER TO VISIT TODAY. INFORMED FR IYER. HAD PRAYER WITH PT, WILL FOLLOW
--- NOTE | 2022-01-18 12:30 | NUR ---
PT. CALLS FOR NEEDS, FREQUENT TRIPS FROM BED TO BSC. URINATION AND SMALL STOOL EACH TIME. SHE WEARS BRIEFS TO ASSIST WITH FREQUENCY. IV R AC FLUSHES WELL.
--- NOTE | 2022-01-18 13:37 | NUR ---
Call light answered, pt requests assistance to use BR, dark liquid stool and x1 unmeasured void. Back to bed, SCDs in place. Call light in reach
--- NOTE | 2022-01-18 13:43 | NUR ---
ROUNDED ON PT., SHE IS RESTING IN BED AND IS READING IN BED. SHE HAS NOT COMPLAINTS AND CALLS FOR ALL NEEDS.
--- NOTE | 2022-01-18 16:23 | NUR ---
ADMITTED FOR PLEURAL EFFUSION D/T HEPATIC HYDROTHORAX, ON 3L 02 NC, DIURESING. 2 G NA DIET AND HAS A VERY GOOD APPETITE. ADEQUATE LIQUID INTAKE. OOB IN CHAIR TODAY, PT/OT FOLLOWING. OOB TO EOB WITH MIN ASSIST, CONTACT GUARD ASSIST TO STAND AND PIVOT TO BSC. EKG SHOWS OLD INFARCTS. SLIGHT CRACKLES LEFT LUNG AND DIMINISHED. TOLERATES ACTIVITY FAIRLY WELL.
--- NOTE | 2022-01-18 17:03 | NUR ---
PT USED CALL LIGHT FOR ASSISTANCE TO THE COMMODE. THIS CNA2 WENT AND TRANSFERED HER FROM THE CHAIR TO THE COMMODE, CONTACT GUARD. PERFORMED NEVAEH CARE FOR PT AND CHANGED HER BREIF AND ADDED A NEVAEH PAD. PT IS BACK IN CHAIR W/RN AT HER SIDE. CALL LIGHT IN REACH.
--- NOTE | 2022-01-18 17:05 | NUR ---
PT. OOB IN CHAIR FOR DINNER. ADEQUATE LIQUIDS, VERY FREQUENT SMALL STOOL AND URINE, STOOLS X 7, SOME SMALL, FORMED AND 2 LIQUID.
--- NOTE | 2022-01-18 19:23 | NUR ---
RECEIVED REPORT FROM DAY SHIFT RN. PATIENT IS RESTING IN BED TALKING ON HER CELLPHONE. NO NEEDS NOTED. CALL LIGHT IN REACH.
--- NOTE | 2022-01-18 19:50 | NUR ---
ANSWERED CALL LIGHT. ASSISTED FROM BEDSIDE COMMODE BACK TO BED. PATIENT HAD A EX LARGE LOOSE BLACK BM. SCD'S BACK ON. NO OTHER NEEDS AT THIS TIME.
--- NOTE | 2022-01-18 20:37 | NUR ---
RECEIVED REPORT FROM DAY SHIFT RN. PATIENT IS RESTING IN BED. VITALS TAKEN AND RECORDED. INTAKE AND OUTPUT RECORDED. PATIENT DENIES ANY PAIN. PATIENT IS ON 2L VIA NC. PATIENT DENIES ANY SOB. PATIENT PROVIDED FRESH ICE WATER. PATIENTS PM MEDS GIVENT PER ORDER. SCDS IN USE. PATIENTS IV FLUSHED AND SL PER ORDER. PATIENT DENIES ANY FURTHER NEEDS CALL LIGHT IN REACH.
--- NOTE | 2022-01-18 20:55 | NUR ---
PATIENT CALLED TO USE THE BEDSIDE COMMODE. 1 PA. NEVAEH CARE DONE BY THIS ORE TESTER. PATIENT IS BACK IN BED. CALL LIGHT WITHIN REACH.
--- NOTE | 2022-01-18 21:54 | NUR ---
PATIENT IS RESTING IN BED PLAYING ON HER PHONE. NO NEEDS NOTED. CALL LIGHT IN REACH.
--- NOTE | 2022-01-18 22:30 | NUR ---
PATIENT WAS UP TO BEDSIDE COMMODE. HAD SMALL TARRY LIKE BM AND VOIDED. PATIENT IS BACK IN BED. SCD'S BACK ON. CALL LIGHT IN REACH.
--- NOTE | 2022-01-18 22:48 | NUR ---
PATIENT IS RETURNING TO BED FROM USING BSC WITH JUSTINE VILLASENOR. PATIENT IS IN BED RESTING. PATIENT DENIES ANY NEEDS. CALL LIGHT IN REACH.
--- NOTE | 2022-01-19 00:14 | NUR ---
PATIENT WAS UP TO THE BEDSIDE COMMODE. 1 PA FWW. PATIENT IS BACK IN BED. CRACKERS AND PUDDING PROVIDED. ICE WATER REFRESHED. NO OTHER NEEDS AT THIS TIME.
--- NOTE | 2022-01-19 00:36 | NUR ---
PATIENT IS RESTING IN BED WITH EYES CLOSED, RR 18. CALL LIGHT IN REACH.
--- NOTE | 2022-01-19 02:29 | NUR ---
PATIENT ASSISTED TO THE BSC A 1PA. PATIENT ABLE TO VOID. PATIENT IS BACK IN BED RESTING. NO FURTHER NEEDS NOTED. CALL LIGHT IN REACH.
--- NOTE | 2022-01-19 04:01 | NUR ---
PATIENT RESTING IN BED WITH EYES CLOSED, RR 17. CALL LIGHT IN REACH.
--- NOTE | 2022-01-19 04:53 | NUR ---
PATIENT ASSISTED TO THE BSC A 1PA W/FWW. PATIENT ABLE TO VOID AND HAVE SMALL LOOSE STOOL. PATIENT IS BACK IN BED RESTING. PATIENTS VITALS TAKEN AND RECORDED. PATIENTS INTAKE AND OUTPUT RECORDED. PATIENT IS ON 2L VIA NC. PATIENTS IV FLUSHED AND SL PER ORDER. PATIENT DENIES ANY FURTHER NEEDS. CALL LIGHT IN REACH.
--- NOTE | 2022-01-19 06:31 | NUR ---
PATIENT ASSISTED TO THE BSC A 1PA W/FWW. PATIENT ABLE TO VOID. PATIENT IS BACK IN BED RESTING. PATIENT IS ON 2L VIA NC. SCDS IN USE. AM MEDS GIVEN PER ORDER. PATIENT DENIES ANY FURTHER NEEDS. CALL LIGHT IN REACH.
--- NOTE | 2022-01-19 08:11 | NUR ---
Called and updated JAH Zuniga. Pt will have an assessment on Monday from [facility]ability for payment to go to an AFC. Nadia states she had called and spoken with Bety Gold from [facility] last night. Bety had asked her to be present for the assessment as Mary always denies need to [facility] staff. Per Nadia, pt is unable to make or eat food she prepares for her without assist, she is incontinent of urine and stool, she is unable to shower or dress self. She has frequent falls. Over the weekend she was incontinent of stool on the floor and throughout rooms in the house. Nadia checked on her and was able to clean pt and house, she was unable to shower Mary as pt was to weak and she could not lift her. Mary called EMS twice to increase her 02 as she could not walk to the concentrator to increase her oxygen. Nadia will attend the assessment.
--- NOTE | 2022-01-19 09:30 | NUR ---
Spoke with Bety Gold as [facility] will take this pt on Monday. She states Pranav has scheduled eval at 1 pm. Asked if there is any way they could complete it in the am as, I would like to be able to discharge this pt on Monday and not hold until after the holiday. She states she can message Pranav, but he is out for a Dr.s Appt today. Will follow up tomorrow with [facility].
--- NOTE | 2022-01-19 09:49 | NUR ---
OT in to work with Pt. Pt remains on 2L of O2.
--- NOTE | 2022-01-19 10:00 | NUR ---
Spoke with pt. She denies needs. Cont. to await eval from [facility] on Monday.
--- NOTE | 2022-01-19 10:35 | NUR ---
PT RESTING, DRIFTING IN AND OUT. DID REQUEST VISIT FROM FROM [facility]. WILL INFORM HIM
--- NOTE | 2022-01-19 12:35 | NUR ---
Pt sat in the recliner for lunch. She ate 75%. Pt refused OT but participated in PT. Pt was educated on importance of taking part in all therapies offered while in the hospital.
--- NOTE | 2022-01-19 14:15 | NUR ---
Pt is resting/sleeping in bed. O2 at 2L NC. No signs of distress. Bed alarm not activated since Pt calls appropriately.
--- NOTE | 2022-01-19 14:26 | NUR ---
Texted Trista asking how late this pt can admit on Monday if she is approved for long-term Medicaid. Updated I have requested earlier eval by [facility] Aging and Disability.
--- NOTE | 2022-01-19 17:57 | NUR ---
VITALS AND I/Os DUE. THIS RN TO ROOM TO ASSIST. VITAL SIGNS STABLE. PT NOTED TO BE 100% ON 2L O2 BY NC. PT REPORTS EATING "ALL MY DINNER BUT SOME OF THE CHICKEN." NO TRAY AT BEDSIDE. PT DENEIS ADDITIONAL REQUESTS OR COMPLAINTS. PTS PRIMARY RN UPDATED. CALL LIGHT WITHIN REACH. BED RAILS UP.
--- NOTE | 2022-01-19 18:48 | NUR ---
Pt had large continent BM. No c/o pain. O2 at 2L via NC. Pt is back in bed. warm blanket provided per Pt's request.
--- NOTE | 2022-01-19 19:31 | NUR ---
REPORT RECEIVED ON PT. SHE APPEARS TO BE ASLEEP IN BEED. CALLL LIGHT IN REACH. DID NOT DISTURB PT.
--- NOTE | 2022-01-19 20:35 | NUR ---
IN TO ASSIST PT OFF OF THE BSC, VOID AND BM, PT USES FWW TO PIVOT BACK TO BED, NO FURTHER NEEDS AT THIS TIME
--- NOTE | 2022-01-19 22:24 | NUR ---
PT'S BP AND MAP WERE LOW 99/[address] GHOSH NOTIFIED. 2100 SPIRONOLACTONE HELD PER .
--- NOTE | 2022-01-20 06:04 | NUR ---
PT HAS BEEN ON O2 AT 2L PER NC THIS SHIFT. SHE IS 99 TO 100%. O2 IS TITRATED DOWN TO 1L. HER LUNGS ARE COARSE ON THE RIGHT. PT HAS VOIDED. HAD BMS X2. BP HAS BEEN RUNNING LOW. PT IS WEAK AND REQUIRES A FWW, GAIT BELT AND 1 STAFF TO GET UP TO THE BSC SAFELY. PT IS TOLERATING HE DIET. SHE HAS BEEN AFEBRILE.
--- NOTE | 2022-01-20 07:48 | NUR ---
REPORT RECEIVED FROM NIGHT RN - PT RESTING IN BED WITH EYES CLOSED ON BACK, RR EVEN - 1L NC IN PLACE. CALL LIGHT IN REACH.
--- NOTE | 2022-01-20 09:05 | NUR ---
CHECKED ON PATIENT GOT HER NEW ICE WATER. ASKED HER IF SHE WOULD LIKE TO WASH HER FACE OR BRUSH HER TEETH AND SHE SAID NO.
--- NOTE | 2022-01-20 09:25 | NUR ---
RN IN ROOM TO ADMINISTER SCHEDULED MEDICATIONS AND ASSESS PT - PT VISITING WITH MD UPON ENTERING. PT STATES SHE IS "PROTESTING" CARE TODAY, COMPLIANT WITH MEDS AND ASSESSMENT. IV SITE FLUSHES WITHOUT DIFFICULTY, WINDOW CHANGED - FEILD START DRESSING. PT DENIES PAIN. ATE 100% OF BREAKFAST AND "WILL NOW TAKE A NAP". SPO2 97% ON 1L VIA NC, RR EVEN AND UNLABORED. CRACKLES IN LOWER BARLOW. MD AWARE OF BP - NO NEW ORDERS TO HOLD SPIRALACTALONE OR LASIX. CALL LIGHT IN REACH, SCDS IN PLACE.
--- NOTE | 2022-01-20 09:30 | NUR ---
Spoke with Trista at [facility]. She was notified by Pranav they will assess this pt at 0900 and feel this pt will qualify for correction medicaide. She asked I schedule transport for 12:30. We discussed when her belongings could be moved in and I gave her Nadia's phone number for arrangements. [facility] will provide a twin bed for the pt until arrangement can be made. Called and spoke with Manny at [facility] and transport scheduled for 12:30 tomorrow.
--- NOTE | 2022-01-20 10:43 | NUR ---
RN ROUNDING ON PT, SITTING UP IN BED ON PHONE. CALL LIGHT IN REACH.
--- NOTE | 2022-01-20 11:07 | NUR ---
RN IN ROOM TO ADMINISTER SCHEDULED MEDICATION. PT UPSET ABOUT NOT BEING ABLE TO GO HOME. PT PROVIDED PHONE AND MENU TO ORDER LUNCH.
--- NOTE | 2022-01-20 12:16 | NUR ---
RN ROUNDING ON PT - SITTING IN BED EATING LUNCH FEEDING HERSELF WITHOUT DIFFICULTY. CALL LIGHT IN REACH.
--- NOTE | 2022-01-20 12:48 | NUR ---
Covid swab ordered for placement.
--- NOTE | 2022-01-20 14:37 | NUR ---
PT WORKING WITH PT IN HALLWAY - BACK TO ROOM TO TAKE A SHOWER WITH QUALITY ASSISTANT ASSISTANCE.
--- NOTE | 2022-01-20 15:30 | NUR ---
PATIENT WASHED HER EVERYTHING EXCEPT HER FEET AND HER BACK I HELPED HER WASH HER HAIR. AFTER HER SHOWER WAS DONE AND NEW GOWN ON AND WHEN SHE WAS SETTLE IN HER BED SHE ATE HER HALF OF SANDWICH FOR A SNACK. WENT AND GOT HER A POP AFTER I ASKED THE NURSE IF IT WAS OK.
--- NOTE | 2022-01-20 15:39 | NUR ---
RN IN ROOM TO ASSESS PT - PT RESTING IN BED AFTER SHOWER. ASSESSMENT UNCHANGED FROM PREVIOUS - 1L NC NEEDED TO MAINTAIN SP02 MID 90S. PT UP TO BSC TO VOID 400ML. BACK TO BED WITH SCDS. CALL LIGHT IN REACH.
--- NOTE | 2022-01-20 17:43 | NUR ---
RN ROUNDING ON PT - SITTING UP IN BED FEEDING SELF DINNER. PT DENIES FURTHER NEEDS AT THIS TIME. CALL LIGHT IN REACH.
--- NOTE | 2022-01-20 19:15 | NUR ---
REPORT TAKEN ON PT. SHE IS AWAKE AND ALERT, RESTING IN BED. PT HAS CALL LIGHT IN REACH. IV FLUSHED, WATER REFILLED.
--- NOTE | 2022-01-20 20:25 | NUR ---
covid 19 swab done to both nares and sent to in house lab.
--- NOTE | 2022-01-20 21:35 | NUR ---
PT'S BP AND MAP ARE OUT OF PARAMETERS . MD CALLED AND SPIRONOLACTONE HELD FOR 2100 DOSE.
--- NOTE | 2022-01-20 21:50 | NUR ---
pt up to the bsc, sba fww, back to bed, no further needs at this time
--- NOTE | 2022-01-20 22:43 | NUR ---
PT CALLED TO REQUEST SOMETHING FOR A HEADACHE. SHE WAS GIVEN A 500 MG PO TYLENOL AND AN ICE PACK PAPLCED AT THE BACK OF HER NECK. WILL CHECK BACK.
--- NOTE | 2022-01-21 05:49 | NUR ---
call light answered, pt up sba with fww to void. vss and i&o's complete. daily weight done and pt back to bed. fresh water given and scheduled 0700 meds given, see emar. primary rn aware.
--- NOTE | 2022-01-21 06:52 | NUR ---
PT HAS SLEPT OFF AND ON THIS SHIF. SHE HAD A HEADACHE AND WAS GIVEN A TYLENOL 500 MG WITH RELIEF. VSS AFEBRILE. SHE IS READY TO GO TODAY
[2022-01-21] MEDS ORDERED: SPIRONOLACTONE25 MG PO (07:45)
[2022-01-21] MEDS ORDERED: PAROXETINE HCL20 MG PO (07:46)
[2022-01-21] MEDS ORDERED: FERROUS SULFAT325 MG PO (07:46)
[2022-01-21] MEDS ORDERED: NEURONTIN300 MG PO (07:46)
[2022-01-21] MEDS ORDERED: LACTULOSE10 GM/152 PO (07:47)
[2022-01-21] MEDS ORDERED: FUROSEMIDE40 MG PO (07:48)
[2022-01-21] MEDS ORDERED: MAG GLYCINATE100 MG PO (07:48)
[2022-01-21] MEDS ORDERED: OMEPRAZOLE20 MG PO (07:49)
[2022-01-21] MEDS ORDERED: SUCRALFATE1 GM PO (07:49)
[2022-01-21] MEDS ORDERED: VITAMIN D21250 MCG PO (07:49)
--- NOTE | 2022-01-21 08:25 | NUR ---
DC SUMMARY, ORDERS, RX COPY, COVID RESULTS FAXED TO [facility]. ORIGINALS PLACED IN DC PACKET.
--- NOTE | 2022-01-21 09:05 | NUR ---
INTO PATIENT ROOM, [facility] AT BEDSIDE AWAITING [facility]. ADVISED THAT PATIEN WILL NOW REQUIRE CONTINOUS O2. NEW ORDERS AND CHANGE OF LOCATION HAS BEEN FAXED TO [facility]. [facility] WILL DELIVER PATIENT HOME O2 TO [facility] PRIOR TO THE PATIENT ARRIVAL. DISCUSSED PATIENT DISCHARGE PLAN, SHE IS RELUCTANT BUT AGREEABLE.
--- NOTE | 2022-01-21 09:40 | NUR ---
[facility] IN ROOM TO INTERVIEW PT - UNABLE TO ASSESS PT AT THIS TIME.
--- NOTE | 2022-01-21 10:45 | NUR ---
RN IN ROOM TO ASSESS PT - [facility] STILL INTERVIEWING PT WITH POA IN ROOM.
--- NOTE | 2022-01-21 10:58 | NUR ---
RECVD MESSAGE FROM TONO FRANCIS DNS AT [facility]. THEY ARE ATTEMPTING TO FILL THE PATIENT MEDICATIONS, BUT ARE HAVING AN ISSUE MEDICARE PART D. [facility] UNSURE STATES THEY WILL NOT BE ABLE TO ACCEPT THE PATIENT WITHOUT MEDICATIONS. AFTER SEVERAL PHONE CALLS TO PATIENTS JAH MAURICIO, [facility] AND DISCUSSION WITH [facility] PHARMACIST, [facility] TO PLUMBER GASFITTER THE PATIENT OWN MEDICATIONS TO DROP OFF AT THE FACILITY. PER DALLIN IN ADMITTING AND [facility] PATIENT DOES NOT HAVE MEDICARE PART D COVERAGE AT THIS TIME. TONO FRANCIS NOTIFIED, THEY WILL PLAN TO OBTAIN THE PATIENT MEDICAID NUMBER IN ABLE TO FILL HER MEDICATIONS THROUGH [facility] IN THE FUTURE.
--- NOTE | 2022-01-21 11:48 | NUR ---
RN IN ROOM TO ADMINISTER SCHEDULED MEDICATIONS. PT STATES SHE DOES NOT WANT TO LEAVE. ENCOUARAGE PT TO HAVE AN OPEN MIND ABOUT DISCHARGING TO FACILITY. PT PROVIDED EARLY LUNCH BEFORE DISCHARGE. SL REMOVED, CATH IN TACT.
== END 2022-01-21 12:30 | DRG 186 ==
LOC: ED 19:54 → MS 19:55
PROVIDERS: ADMIT Internal Medicine; ATTEND Internal Medicine
DX: J94.8 Other specified pleural conditions (principal); J96.21 Acute and chronic respiratory failure with hypoxia; K72.10 Chronic hepatic failure without coma; K29.70 Gastritis, unspecified, without bleeding; F32.9 Major depressive disorder, single episode, unspecified; G89.4 Chronic pain syndrome; Z20.822 Contact with and (suspected) exposure to COVID-19; K74.60 Unspecified cirrhosis of liver; D63.8 Anemia in other chronic diseases classified elsewhere; Z79.899 Other long term (current) drug therapy
CPT/HCPCS: 32555; 36415; 71045; 71250; 80048; 80053; 83735; 83880; 84484; 85025; 87502; 93005; 93010; 94640; 94660; 94760; 94761; 96376; 97116; 97162; 97166; 97530; 97535; 99285-25; A9270; C9803; G0378; J1940; J2270; J2405; P9047; U0003

== ENCOUNTER 2022-02-03 13:53 | Observation (INO) | payer MEDICARE, OTHER ==
[~2022-02-03] VITALS: Ht 162.6 cm; Wt 78.5 kg
[~2022-02-03 13:53] MED LIST changes: +FUROSEMIDE40 MG PO
--- OUTSIDE RECORDS SUMMARY | 2022-02-03 13:57 | XMS ---
PreManage Notification: TREE GARCIA Security Insurance Operations Rep Events No recent Security Events currently on file CRITERIA MET - PDMP - [facility] - Has Care Guidelines - 6 ED Visits in 6 Months - [facility] - 2 Visits in 30 Days CARE PROVIDERS KING CAPUTO Nurse Practitioner: 03/21/2019-Current PHONE: Unknown KRUNAL GARRIDO [facility] 05/26/2021-Current PHONE: Unknown [facility] has no Care Guidelines for this patient. Care History Medical/Surgical 10/21/2021 [facility] Patient has follow up with DR. Garrido on 10/27/2021 10/20/2021 [facility] - Patient is currently established with [facility]. If patient is seen in the ED during business hours. Please contact CHWs at [facility]. Care Recommendation: This patient has had 5 or more Emergency Department visits in the last 12 months.\T\nbsp; Patient requires education on the scope and purpose of the ED as an acute care provider not a Primary Care Provider and should not be utilized for chronic conditions.\T\nbsp; These are guidelines and the provider should exercise clinical judgment when providing care. 07/13/2021 [facility] Frida Li saw patient on 07/07/2021 for left side pain, due to falling at home, and advised if health/pain becomes worse to see PCP or go to ER. No follow up scheduled at this time. E.D. VIS[facility] (12 MO[address] [facility] NOTE: Visits indicate total known visits. ED/UCC VISIT TRACKING (12 MO.) [facility] [place] [facility] COMPLAINT: - LOW BLOOD, SWELLING STOMACHE 01/16/2022 19:54 [facility] [place] TYPE: Emergency COMPLAINT: - SOB 01/10/2022 14:55 [facility] [place] TYPE: Emergency [...] against other object, initial encounter 12/27/2021 16:[address] 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 - Type 2 diabetes mellitus without complications - Allergy to other foods 11/14/2021 11:06 [facility] [place] [facility] [place] TYPE: Emergency COMPLAINT: - DIFFICULLTY BREATHING 11/13/2021 10:06 [facility] [place] [facility] [place] TYPE: Emergency COMPLAINT: - LEFT SIDE PAIN,MITESH DIAGNOSES: - Hyperlipidemia, unspecified - Pleural effusion, not elsewhere classified - Shortness of breath - Allergy status to narcotic agent - Unspecified osteoarthritis, unspecified site - Essential (primary) hypertension - Allergy status to other drugs, medicaments and biological substances - 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 - Major depressive disorder, single episode, unspecified - Contact with and (suspected) exposure to COVID-19 - Other specified pleural conditions - Gastritis, unspecified, without bleeding - Unspecified cirrhosis of liver - Chronic pain syndrome - Other specified pleural conditions - Anemia in other chronic diseases classified elsewhere - Gastritis, unspecified, without bleeding - Contact with and (suspected) exposure to COVID-19 - Anemia in other chronic diseases classified elsewhere - Chronic hepatic failure without coma - Unspecified cirrhosis of liver - Chronic pain syndrome - Acute and chronic respiratory failure with hypoxia - 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
--- NOTE | 2022-02-03 18:12 | NUR ---
PT ARRIVES TO THE FLOOR VIA STRETCHER - ALERT AND ORIENTED. VS OBTAINED, BP LOW, PT ONLY SYMPTOMATIC WITH AMBULATION. 2L NC PLACED, CHRONIC AT FACILITY. PUREWICK PLACED FOR URINARY URGENCY. CONSENT SIGNED FOR BLOOD IN ED, REVIEWED BY LEARNING ANALYST. IV SITE TOLERATING LR INFUSION WITHOUT DIFFICULTY. CALL LIGHT IN REACH.
--- NOTE | 2022-02-03 18:48 | NUR ---
FIRST UNIT PRBC INFUSING, PT TOLERATING WELL, UP IN BED EATING DINNER, VS STABLE. CALL LIGHT IN REACH.
--- NOTE | 2022-02-03 20:25 | NUR ---
PT PLACED ONTO BEDPAN, WILL CALL WHEN READY, RN INFORMED OF ALARMING IV PUMP
--- NOTE | 2022-02-03 21:20 | NUR ---
PRBC UNIT 2 OF 2 INFUSING. STARTED PER PROTOCOL. THIS RN REMAINED WITH pt FOR 15 MINUTES PER PROTOCOL. pt DENIES SIGNS OR SYMPTOMS OF A TRANSFUSION REACTION. pt RESTING IN BED. REQUESTED ICE CREAM. PROVIDED. CALL LIGHT WITHIN REACH.
--- NOTE | 2022-02-03 22:30 | NUR ---
CALL LIGHT ANSWERED, pt REQUESTING HELP REMOVING EXCESS BLANKETS. ASSISTANCE PROVIDED, NO ADDITIONAL NEEDS VERBALIZED. BLOOD INFUSING WNL, WILL CONTINUE TO MONITOR. CALL LIGHT IN REACH.
--- NOTE | 2022-02-03 23:20 | NUR ---
PT REQUESTED A BEDPAN. SHE HIS PASSING GAS AND FEELS LIKE SHE WILL HAVE A BM. BEDPAN PLACED UNDER PT. SHE IS ABLE TO ROLL SIDE TO SIDE. PT HAS CALL LIGHT IN REACH.
--- NOTE | 2022-02-03 23:40 | NUR ---
IN TO REMOVE BEDPAN FROM UNDER PT, PUREWICK DEVICE RESUMED, NO FURTHER NEEDS AT THIS TIME
--- NOTE | 2022-02-04 02:15 | NUR ---
PT HAS CALLED MULTIPLE TIMES FOR WARMED BLANKETS TO COVER HER RIGHT FOOT. SHE IS RESTLESS AND KICKS OFF THE BLANKET REPEATEDLY.
--- NOTE | 2022-02-04 04:31 | NUR ---
PT APPEARS TO BE ASLEEP. CALL LIGHT IS IN REACH. LIGHTS ARE ON IN ROOM PER MO REQUEST.
--- NOTE | 2022-02-04 07:31 | NUR ---
REPORT RECEIVED FROM NIGHT RN - PLAN OF CARE REVIEWED.
--- NOTE | 2022-02-04 08:30 | NUR ---
MED REC COMPLETE
--- NOTE | 2022-02-04 09:25 | NUR ---
RN IN ROOM TO ASSESS PT - PT SITTING UP IN BED EATING BREAKFAST UPON ENTRY. PT DENIES COMPLAINTS THIS MORNING. CHRONIC 2L O2 IN PLACE, IV SITE INFUSING WITHOUT DIFFICULTY. PUREWICK NOTED TO HAVE PINK BLOOD TINGE DISCOLORATION. CHANGED AND FRESHCHUCKS PLACED ON BED TO REASSESS. PERICARE PROVIDED, NO SKIN BREAKDOWN OR RASH NOTED. PT DENIES FURTHER NEEDS, CALL LIGHT IN REACH.
--- NOTE | 2022-02-04 09:55 | NUR ---
PATIENT REFUSED TO GET INTO CHAIR AND TO TAKE A SHOWER. FACE AND ORAL CARE DONE TOLERATED. CALL LIGHT LEFT WITHIN REACH.
--- NOTE | 2022-02-04 10:44 | NUR ---
BLOOD TINGE COLORATION IN URINE. NURSE NOTIFIED.
--- NOTE | 2022-02-04 11:11 | NUR ---
PATIENT WENT TO COMMODE, HAD SUCCESSFUL BM. REFUSED TO SHOWER OR BEDBATH X3. NURSE NOTIFIED AND DOCUMENTED. CALL LIGHT IN REACH.
--- NOTE | 2022-02-04 11:11 | NUR ---
Notified by Dr. Ji, pt will dc today. FAxed orders, H&P, and DC summary to [facility]. Texted Trista and let her know the [employer] van can transport at 1400. She replied, "ok".
--- NOTE | 2022-02-04 11:51 | NUR ---
RN ROUNDING ON PT - RESTING IN BED WITH EYES CLOSED, RR EVEN AND UNLABORED, NC IN PLACE. POWER TRANSFORMER REPAIRER STATES PT HAD BM THAT WAS FORMED AND NO EVIDENCE OF SUSIE BLOOD. IV DC'D BY BINDERY MACHINE FEEDER OFFBEARER IN PREPERATION FOR DISCHARGE. CALL LIGHT IN REACH.
--- NOTE | 2022-02-04 13:09 | NUR ---
RN IN ROOM TO ADMINISTER SHCEDULED MEDICATION - PT EATING LUNCH. DC EDUCATION PROVIDED AND PLACED IN FACILITY PACKET. REPORT CALLED TO FACILITY - [facility].
--- NOTE | 2022-02-04 13:37 | NUR ---
HELPED PATIENT UP INTO CLOTHES, DID VITALS, I&O'S, AND PACKED ALL OF PATIENTS BELONGINGS FOR DISCHARGE.
== END 2022-02-04 13:52 | disposition home or self-care (01) ==
LOC: ED 13:53 → MS 13:55
PROVIDERS: ADMIT Internal Medicine; ATTEND Internal Medicine
DX: D62 Acute posthemorrhagic anemia (principal); D63.8 Anemia in other chronic diseases classified elsewhere; K74.60 Unspecified cirrhosis of liver; D68.9 Coagulation defect, unspecified; E11.9 Type 2 diabetes mellitus without complications; I10 Essential (primary) hypertension; E78.5 Hyperlipidemia, unspecified; M19.90 Unspecified osteoarthritis, unspecified site; Z96.643 Presence of artificial hip joint, bilateral; Z96.652 Presence of left artificial knee joint; Z88.5 Allergy status to narcotic agent; Z20.822 Contact with and (suspected) exposure to COVID-19
CPT/HCPCS: 36415; 71045; 80053; 85025; 85610; 85730; 86850; 86900; 86901; 86922; 87502; A9270; C9113; C9803; J7121; U0003

== ENCOUNTER 2022-02-10 23:12 | Observation (INO) | payer MEDICARE, OTHER ==
[~2022-02-10] VITALS: Ht 162.6 cm; Wt 77.5 kg
--- OUTSIDE RECORDS SUMMARY | 2022-02-10 23:14 | XMS ---
PreManage Notification: TREE GARCIA Security Managed Care Nurse Events No recent Security Events currently on file CRITERIA MET - PDMP - [facility] - Has Care Guidelines - 6 ED Visits in 6 Months - [facility] - 2 Visits in 30 Days CARE PROVIDERS [place] CAP[place]O Nurse Practitioner: 03/21/2019-Current PHONE: Unknown KRUNAL GARRIDO [facility] 05/26/2021-Current PHONE: Unknown [facility] has no Care Guidelines for this patient. Care History Medical/Surgical 10/21/2021 [facility] Patient has follow up with DR. Garrido on 10/27/2021 10/20/2021 [facility] - Patient is currently established with [facility]. If patient is seen in the ED during business hours. Please contact CHWs at [facility]. Care Recommendation: This patient has had 5 or more Emergency Department visits in the last 12 months.\T\nbsp; Patient requires education on the scope and purpose of the ED as an acute care provider not a Primary Care Provider and should not be utilized for chronic conditions.\T\nbsp; These are guidelines and the provider should exercise clinical judgment when providing care. 07/13/2021 [facility] Frida Li saw patient on 07/07/2021 for left side pain, due to falling at home, and advised if health/pain becomes worse to see PCP or go to ER. No follow up scheduled at this time. [facility] (12 MO.) [facility] T[facility] NOTE: Visits indicate total known visits. ED/UCC VISIT TRACKING (12 MO.) 02[facility]10/2022 23[facility]12 [facility] COMPLAINT: - SOB 02/03/2022 13:54 [facility] TYPE: Emergency COMPLAINT: - LOW BLOOD, SWELLING STOMACHE 01/16/2022 19:54 [facility] TYPE: Emergency COMPLAINT: - SOB 01/10/2022 14:55 [facility] TYPE: Emergency COMPLAINT: - SHORTNESS OF BREATH 01/06/2022 18:44 [facility] TYPE: Emergency COMPLAINT: - FALL/HEADACHE DIAGNOSES: - Type 2 diabetes mellitus without complications - Other long term care pharmacist (current) drug therapy - Unspecified osteoarthritis, unspecified [...] Allergy status to narcotic agent - Other long term care pharmacist (current) drug therapy - Type 2 diabetes [...] drugs, medicaments and biological substances - Other long term care pharmacist (current) drug therapy - Type 2 diabetes mellitus without complications 11/07/2021 19:03 [facility] TYPE: Emergency COMPLAINT: - URINE PROBLEM DIAGNOSES: - Urinary tract infection, site not specified - Allergy status to narcotic agent - Allergy to other foods - Hyperlipidemia, unspecified - Type 2 diabetes mellitus without complications - Dysuria - Other long-term (current) drug therapy - Essential (primary) hypertension - Unspecified osteoarthritis, unspecified site 10/20/2021 22:30 [facility] TYPE: Emergency COMPLAINT: - WEAKNESS 10/18/2021 21:[address] [facility] TYPE: Emergency COMPLAINT: - FALL DIAGNOSES: - Type 2 diabetes mellitus without complications - Allergy status to narcotic agent - Essential (primary) hypertension - Unspecified osteoarthritis, unspecified site - Strain of muscle, fascia and tendon of lower back, initial encounter - Other long-term (current) drug therapy - Unspecified cirrhosis of liver - Nausea with vomiting, unspecified - Fall on same level, unspecified, initial encounter - Hyperlipidemia, unspecified 08/08/2021 20:33 [facility] TYPE: Emergency COMPLAINT: - ABD PAIN DIAGNOSES: - Other long-term (current) drug therapy - Unspecified osteoarthritis, unspecified site - Allergy status to narcotic agent - Left lower quadrant pain - Essential (primary) hypertension - Hyperlipidemia, unspecified - Type 2 diabetes mellitus without complications 07/09/2021 15:56 [facility] TYPE: Emergency COMPLAINT: - LOWER ABDOMINAL PAIN DIAGNOSES: - Type 2 diabetes mellitus without complications - Hyperlipidemia, unspecified - Other long term care pharmacist (current) drug therapy - Allergy status to narcotic agent - Essential (primary) hypertension - Lower abdominal pain, unspecified 05/25/2021 14:46 [facility] TYPE: Emergency COMPLAINT: - WEAKNESS, HEADACHE DIAGNOSES: - Type 2 diabetes mellitus without complications - Contact with and (suspected) exposure to COVID-19 - Unspecified osteoarthritis, unspecified site - Other long term care pharmacist (current) drug therapy - Anemia, unspecified - Allergy status to narcotic agent - Weakness - Essential (primary) hypertension - Hyperlipidemia, unspecified INPATIENT VISIT TRACKING (12 MO.) 02/03/2022 13:55 [facility] TYPE: Observation COMPLAINT: - ANEMIA DIAGNOSES: - Type 2 diabetes mellitus without complications - Coagulation defect, unspecified - Acute posthemorrhagic anemia - Allergy status to narcotic agent - Presence of artificial hip joint, bilateral - Hyperlipidemia, unspecified - Unspecified cirrhosis of liver - Essential (primary) hypertension - Unspecified osteoarthritis, unspecified site - Anemia in other chronic diseases classified elsewhere - Presence of left artificial knee joint - Contact with and (suspected) exposure to COVID-19 01/18/2022 16:32 [facility] TYPE: Medical Surgical COMPLAINT: - RESPIRATORY FAILURE DIAGNOSES: - Other long term care pharmacist (current) drug therapy - Major depressive disorder, [...] chronic respiratory failure with hypoxia - Other long term care pharmacist (current) drug therapy - Chronic hepatic failure without coma - Major depressive disorder, single episode, unspecified 01/10/2022 17:43 [facility] TYPE: Medical Surgical [...] 2 diabetes mellitus without complications - Other long-term (current) drug therapy - Hypo-osmolality and hyponatremia [...] of artificial hip joint, bilateral - Other long term care pharmacist (current) drug therapy - Personal history of [...] Allergy status to analgesic agent 12/27/2021 20:59 [facility] TYPE: Medical Surgical COMPLAINT: - ACUTE ON CHRONIS ANEMIA HYPOTENSION DIAGNOSES: - Anemia, unspecified - Atelectasis - Other long term care pharmacist (current) drug therapy - Nonalcoholic steatohepatitis (CASAS) - Other long term care pharmacist (current) drug therapy - Allergy status to [...] complications - Unspecified cirrhosis of liver - watermaster (current) use of anticoagulants - Other specified pleural conditions - Chronic pain syndrome - Unspecified cirrhosis of liver - Other long-term (current) drug therapy - Contact with and [...] coli] - Severe sepsis without septic shock [email or web address]
--- NOTE | 2022-02-11 02:58 | NUR ---
PT TRANFERRED TO CCU VIA STRETCHER. REPORT RECEIVED FROM ED RN.
--- NOTE | 2022-02-11 04:43 | NUR ---
PT USED CALL LIGHT APPROPRIATELY THIS MORNING AND REQUESTED ASSISTANCE USING THE BEDPAN. CONTINENT OF URINE. ASSISTED WITH PERSONAL HYGEINE AND REPOSITIONING. VSS. CALL LIGHT WITHIN REACH. WILL CONTINUE TO MONITOR.
--- NOTE | 2022-02-11 06:26 | NUR ---
CONTINENT OF URINE VIA BEDPAN WITH ASSISTANCE. VERBALIZES NEEDS APPROPRIATELY. DENIES PAIN/DISCOMFORT. VSS. NO DISTRESS NOTED. CALL LIGHT WITHIN REACH. WILL CONTINUE TO MONITOR.
--- NOTE | 2022-02-11 07:30 | NUR ---
Spoke with Mary and she states she is not happy living at [facility]. She does like having a roommate. She can't really say why she doesn't like it, she just wants to be home. States she is using a wc most of the time. Nadia her POA arrives and lets me know they saw Dr Garrido yesterday. POLST form was updated and pt is no CPR or Intubat- bation, but limited intervention. Form faxed to the OR registry, medical records, and [facility]. Nadia states the plan is for the daughter to get her from [place] and then pt will go to Hospice. Dr Myrick updated. Nadia has questions of pt will have her thoracentesis today as sheduled at 1000. Let her know she will need to discuss this with Dr. Myrick. Usually OP procedures are not completed when pts are in the hospital. Pt and Nadia deny dang needs for pt to return to [facility] when ready for dc.
[2022-02-11] MEDS ORDERED: GABAPENTIN300 MG PO (07:36)
--- NOTE | 2022-02-11 07:40 | NUR ---
PATIENT IN BED, REFUSED TO GET INTO CHAIR. METAL REED TUNER ASSISTED WITH READJUSTMENT IN BED. NO OTHER NEEDS AT THIS TIME. CALL LIGHT WITHIN REACH.
--- NOTE | 2022-02-11 08:08 | NUR ---
PATIENT REQUESTED BEDPAN. WAS ALSO DELIVERED MEAL. NO OTHER NEEDS AT THIS TIME. CALL LIGHT IN REACH.
--- NOTE | 2022-02-11 08:30 | NUR ---
PATIENT SHIFT ASSESSMENT COMPLETED. PATIENT WAS NOTED TO BE ON OXYMASK THIS AM. PER ORDERS PATIENT TO BE PLACED ON VAPOTHERM OR CPAP PER RT RECOMMENDATION. MARY JANE WITH RT AT THE BEDSIDE TO ASSES PATIENT. VAPOTHERM PLACE ON 28L 70% FIO2. PATIENT TOELRATING WELL. SPOE 95%. PATIENTS BREATH SOUNDS ARE CLEAR ON LEFT UPPER CRACKLES LEFT LOWER AND VERY DIMINISED ON ENTIRE RIGHT SIDE. RR 28-32. PATIENT IS USING ACCESORY MUSCLE. MD UPDATED. MINIMAL BLE EDEMA NOTED. ACTIVE BOWEL TONES. PATIENT IS ALERT AND ORIENTED. WILL CONTINUE TO CLOSELY MONITOR.
--- NOTE | 2022-02-11 09:19 | NUR ---
NURSE AND MERCHANDISING MANAGER INSERTED CATHEDER. FAMILY CURRENTLY VISITING WITH HER. NO OTHER NEEDS AT THIS TIME. CALL LIGHT WITHIN REACH.
--- NOTE | 2022-02-11 09:28 | NUR ---
THIS RN IN ROOM. FULL LINEN CHANGED D/T SATURATED WITH URINE. CABA CATHETER PLACED PER MD SILVERIO. PATIENT TOLERATED WELL. PATIENT HAS HER GOOD FRIEND EVERTON AT THE BEDSIDE. UPDATED PATIENT ON PLAN OF CARE. PER MD SILVERIO PATIENT MAY TRANSFER TO [facility] AT 1000AM FOR THORACENTESIS. NO OTHER NEEDS AT THIS TIME. WILL CONTINUE TO CLOSELY MONITOR.
--- NOTE | 2022-02-11 10:45 | NUR ---
REPORT GIVEN ON PATIENT FROM PREVIOUS RN. CARE RESUMED BY THIS NURSE. FULL ASSESSMENT COMPLETED WELL SCHEDULED MEDICATIONS GIVEN. PATIENT COMPLAINED OF HEADACHE, PRN TYLENOL GIVEN. FAMILY FRIEND AT BEDSIDE. PATIENT READJUSTED IN BED FOR COMOFORT AND EASE OF BREATHING. NOTEABLE DIFFICULTY IN BREATHING (SOB, TACHYPNEIC, SHALLOW). PATIENT CURRENTLY WAITING FOR THOROCENTESIS. TO BE COMPLETED WHILE RECEIVING 1 UNIT FFP DURING PROCEDURE. ALL QUESTIONS ANSWERED REGARDING TIMING OF PRECEDURE AND LOCATION. PERSONAL ITEMS AND CALL LIGHT WITHIN REACH. WILL CONTINUE TO MONITOR FOR BREATHING DIFFICULTY.
--- NOTE | 2022-02-11 11:31 | NUR ---
PATIENT DISPLAYS AN INCREASED WORK OF BREATHING AND ANXIETY. PATIENT STATES SHE CAN'T BREATH. PATIENT REFUSES TO REPOSITION INTO A POSITION TO HELP HER BREATH BETTER AT THIS TIME. PATIENT CHANGED TO OXYMASK PER REQUEST AND A FAN PLACED IN THE ROOM TO HELP WITH COMFORT. PATIENT ALSO GIVEN PRN MORPHINE TO HELP WITH WORK OF BREATHING. DR. SILVERIO NOTIFIED OF CONDITION.
--- NOTE | 2022-02-11 11:44 | NUR ---
Pt with labored breathing. Dr. Myrick and Rn in room. Returned to my office and called Nadia TYSON. She states daughter will be here at 8 pm tomorrow night from [place]. She also spoke with Pastor Ocampo and he will have a area representative visit.
--- NOTE | 2022-02-11 12:05 | NUR ---
PATIENT PLACED ON BI-PAP AT 1130, SHORTLY AFTER BEING GIVEN MORPHINE. WOB BREATHING HAS DECLINED, HOWEVER bp AND HEART RATE HAVE INCREASED. DR. SILVERIO AWARE AND EVALUATED PATIENT. IMAGING CONTACTED TO SEE IF THORACENTESIS CAN BE MOVED UP ON THE SCHEDULE AND TO BE DONE AT BEDSIDE GIVEN CURRENT CONDITION. AT THIS TIME, PROCEDURE TO BE DONE AT BEDSIDE AT 1330.
--- NOTE | 2022-02-11 12:10 | NUR ---
PATIENT IN BED, COMPLAINTS ABOUT NOT BREATHING WELL, VITALS ABNORMAL. NURSE IS VERY AWARE. CALL LIGHT WITHIN REACH.
--- NOTE | 2022-02-11 12:33 | NUR ---
PT ON O2 NC WITH POA IN RM. DECISION MADE TO HAVE FR [facility]IRE[facility] VISIT, INFORMED HIM. WILL FOLLOW NEEDED
--- NOTE | 2022-02-11 13:00 | NUR ---
EMPTIED CABA AND DOCUMENTED OUTPUT. PT HAD NO OTHER NEEDS, FAMILY MEMEBER IN ROOM SITTING WITH PATIENT. CALL LIGHT WITHIN REACH.
--- NOTE | 2022-02-11 13:23 | NUR ---
CORRECTIONAL OFFICER CHIEF AT BEDSIDE IN PREPARATION FOR THOROCENTESIS. COORDINATING WITH LAB TO HAVE FFP READY TO INFUSE AT TIME OF PROCEDURE.
--- NOTE | 2022-02-11 14:45 | NUR ---
THIS RN, HUI RN, SOUND TECHNICIAN AT BEDSIDE TO ASSIST RADIOLOGIST STAFF WITH THORACENTSIS. PATIENT HAD APPROX 3L REMOVED. PATIENT IS NOW RESTING ON CPAP AT THIS TIME. PATIENTS WORK OF BREATHING IS BETTER. PATIENT IS MORE RELAXED AT THIS TIME. WILL CONTINUE TO CLOSELY MONITOR.
--- NOTE | 2022-02-11 15:04 | NUR ---
SPOKE WITH DR GHOSH ABOUT ORDERING FLUID LABS FOR FLUID PULLED DURING THORACENESIS. NO LABS TO BE ORDERED. SINGLE FEW CHEST ORDERED.
--- NOTE | 2022-02-11 16:18 | NUR ---
PATIENT HAD X-RAY COMPLETED. PATIENT CONTINUES TO RELAX AT THIS TIME. NO OTHER NEEDS AT THIS TIME. WILL CONTINUE TO CLOSELY MONITOR.
--- NOTE | 2022-02-11 16:45 | NUR ---
PATIENT CURRENTLY SLEEPING AND COMFORTABLE. EQUAL CHEST RISE AND FALL. PERSONAL ITEMS AND CALL LIGHT WITHIN REACH.
--- NOTE | 2022-02-11 17:24 | NUR ---
1500 MEDICATION, GABAPENTIN, GIVEN LATE DUE TO PATIENT SLEEPING. PATIENT HAD NOT SLEPT THROUGHOUT THE PREVIOUS NIGHT AND NEEDED REST.
--- NOTE | 2022-02-11 18:04 | NUR ---
PATIENT IS CURRENTLY RESTING. BREATHING EFFORT IS MUCH IMPROVED SINCE THOROCENTESIS PROCEDURE. PATIENT NO LONGER USING ACCESSORY MUSCLES AND IS RELAXED. EQUAL CHEST RISE AND FALL AT THIS TIME. PATIENT ABLE TO CONVERSE IN FULL SENTENCES AND FOLLOW COMMANDS. ALL PERSONAL BELONGINGS AND CALL LIGHT WITHIN REACH. WILL CONTINUE TO MONITOR.
--- NOTE | 2022-02-11 18:06 | NUR ---
PATIENT WOB INCREASED STARTING AT BEGINNING OF SHIFT WITH USE OF ACCESSORY MUSCLES. PATIENT MOVED FROM NC TO VAPOTHERM TO BIPAP PRIOR TO THOROCENTESIS. POST THOROCENTESIS, PATIENT ABLE TO RETURN TO OXYMASK ON 4L SHOWING NO BREATHING DIFFICULTIES. PATIENT NOW ABLE TO REST COMFORTABLY. WILL CONTINUE TO MONITOR OXYGENATION NEEDS.
--- NOTE | 2022-02-11 20:00 | NUR ---
REPORT RECEIVED FROM DAY SHIFT RN. PT IS RESTING IN BED WITH HER EYES CLOSED AT THIS TIME AND APPEARS COMFORTABLE W/O NOTED DISTRESS. RESPIRATIONS EVEN AND UNLABORED. VSS. CALL LIGHT AT HAND. WILL CONTINUE TO MONITOR.
--- NOTE | 2022-02-12 | NUR ---
PT RESTING IN BED WITH HER EYES CLOSED AND APPEARS COMFORTABLE. VSS. CALL LIGHT WITHIN REACH. WILL CONTINUE TO MONITOR.
--- NOTE | 2022-02-12 02:12 | NUR ---
PT CONTINUES RESTING IN BED WITH HER EYES CLOSED AND APPEARS COMFORTABLE. VSS. NO DISTRESS NOTED. RESPIRATIONS EVEN AND UNLABORED. CALL LIGHT WITHIN REACH. WILL CONTINUE TO MONITOR.
--- NOTE | 2022-02-12 04:00 | NUR ---
PT RESTING IN BED AND APPEARS COMFORTABLE. DENIES PAIN/DISCOMFORT. CABA IN PLACE. IV SALINE LOCKED. VSS. AFEBRILE. RESPIRATIONS EVEN AND UNLABORED. VERBALIZES NEEDS APPROPRIATELY. CALL LIGHT WITHIN REACH. WILL CONTINUE TO MONITOR.
--- NOTE | 2022-02-12 07:30 | NUR ---
PATIENT REPORT RECIEVED FROM CEMENT MIXER DRIVER RN. PATIENT RESITNG IN BED AT THIS TIME ON 4L NC. WILL MONITOR CLOSELY. PATIENT CALLS APPROPRIATELY.
--- NOTE | 2022-02-12 08:30 | NUR ---
THIS RN AND RASCH IN TO SEE PATIENT. REVIEWED PLAN OF CARE WITH PATIENT. PATIENT IS MUCH BETTER TODAY AND ONLY REQUIRING 2-4L NC WHICH IS PATIENTS BASELINE OXYGEN AMOUNT. PATIENTS FAMILY AND POA WILL BE IN THIS AFTERNOON. PATIENTS BREATH SOUNDS ARE CLEAR IN LEFT UPPER LOBE, DIMINISHED IN LEFT LOWER AND ENTIRE RIGHT SIDE. PATIENT DENIES PAIN. PATIENT HAS ACTIVE BOWEL TONES. DENTURES PRESENT. PATIENT IS MUCH MORE ALERT AND ORIENTED TODAY. PATIENTS IS MORE VERBAL WITH STAFF TODAY AND JOKING WITH STAFF. PATIENT RESTING IN BED. WILL CONTINUE TO CLOSELY MONITOR. NO OTHER NEEDS AT THIS TIME. CALL LIGHT IN REACH. PER MD PATIENT CAN TRANSFER TO [facility].
--- NOTE | 2022-02-12 10:30 | NUR ---
REPORT GIVEN TO CHIOMA FRANCIS. PATIENT RESTING IN BED AND UPDATED ON PLAN OF CARE. PATIENT BELONGINGS GATHERED AND WILL BE SENT WITH PATIENT.
--- NOTE | 2022-02-12 10:45 | NUR ---
THIS RN AND AYLA FRANCIS TRANSFERED PATIENT TO NEW ROOM ON [facility] ROOM 110. CHIOMA RN AT THE BEDSIDE. PATIENT RESTING IN BED. WILL CONTINUE TO CLOSELY MONITOR.
--- NOTE | 2022-02-12 10:50 | NUR ---
REPORT RECEIVED FROM CCU RN. PT. ARRIVED VIA BED. SHE IS ALERT. ON 2L NC AND O2 SAT IS 95%. CABA CATH REMOVED INTACT. PT. TOLERATED WELL. DISCUSSED SAFETY AND POC. LEFT RESTING WITH CALL LIGHT IN REACH.
--- NOTE | 2022-02-12 11:33 | NUR ---
ROUNDING ON PT. SHE IS RESTING WITH EYES CLOSED. RESPIRATIONS ARE UNLABORED.
--- NOTE | 2022-02-12 14:00 | NUR ---
PT ADMIN. MEDS. SHE IS SLEEPING AND WAKES EASILY TO VOICE. AGGITATED AT THIS TIME. POA AND FAMILY HERE TO VISIT. LEFT RESTING WITH CALL LIGHT IN REACH.
--- NOTE | 2022-02-12 15:32 | NUR ---
PT. USED CALL LIGHT APPROPRIATELY FOR WATER AND JUICE. DAUGHTER AT BEDSIDE. LEFT RESTING WITH CALL LIGHT IN REACH.
--- NOTE | 2022-02-12 19:25 | NUR ---
BEDSIDE REPORT FROM CHIOMA FRANCIS, PT IS RESTING IN BED ALERT. SHE SMILES AT THIS TIME RN AND SAYS "YOU ARE MY NURSE TONIGHT" THEN SHE LAUGHED A LITTLE, THIS RN HAS CARED FOR THIS PT MULTIPLE TIMES. SHE HAS NO REQUESTS AT THIS TIME
--- NOTE | 2022-02-12 22:00 | NUR ---
pt requested a snack, she is provided, chocolate pudding at this time. and sat up to eat with hand towel.
--- NOTE | 2022-02-13 00:01 | NUR ---
PT USED CALL LIGHT TO REQUEST EXTRA PILLOWS TO BE PLACED BEHIND HER BACK, TWO EXTRA PILLOWS PROVIDED AND PLACED BEHIND HER BACK, SHE THEN REQUESTED A DENTURE CUP FOR HER PARTIAL UPPERS, THIS IS PROVIDED WITH DENTURE CLEANING TAB AND WATER. PT THEN RESTED BACK, AND SAID SHE IS GOING TO GET SOME SLEEP.
--- NOTE | 2022-02-13 03:34 | NUR ---
PT RESTING IN BED EYES CLOSED RR REGULAR 20 BPM, N.C. IN PLACE, NO DISTRESS NOTED. CALL LIGHT IN REACH
--- NOTE | 2022-02-13 05:05 | NUR ---
PT HAS SLEPT WELL OVER SECOND HALF OF SHIFT, SHE REMAINS ON 2L N.C., HAS PURWICK IN PLACE FOR URINE OUT, PT HAS PRODUCED QUANTITY SUFFICIENT URINE OUT OVER SHIFT. SHE REQUESTED AND WAS PROVIDED A SNACK AT HS. NO SIGNIFICANT CONCERNS THIS SHIFT, WILL CONTINUE TO MONITOR.
--- NOTE | 2022-02-13 06:50 | NUR ---
PT REPOSITIONED THIS AM, NEW PURWICK PLACED AT THIS TIME, NEW DEPENDS, DRAW SHEET AND INCONT PAD, PT ABLE TO ASSIST WITH BED MOBILITY. USED SKIN PROTECT WIPES TO WASH DOWN [place] AREA. PT TOLERATED WELL. PT ASKED TO HAVE HER PARTIAL TEETH REUTRNED TO HER FROM THE DENTURE CUP, PARTIAL RINSED AND GIVEN TO PT TO PUT IN HER MOUTH. PT HAS NO OTHER REQUESTS AT THIS TIME
--- NOTE | 2022-02-13 07:33 | NUR ---
PT RESTING EYES CLOSED AT TIME OF REPORT. [address] BREATHING EVEN AND UNLABORED. CALL LIGHT IN REACH, FRESH H20 TO BEDSIDE.
--- NOTE | 2022-02-13 07:40 | NUR ---
PT IN BED RESTING. NO OTHER NEEDS AT THIS TIME. CALL LIGHT IN REACH.
--- NOTE | 2022-02-13 08:02 | NUR ---
DR GHOSH IN TO SEE PT. PT STATES I FEEL GREAT. AGREES TO HOSPICE CONSULT.
--- NOTE | 2022-02-13 08:03 | NUR ---
Spoke to Nicolette at [facility], she states she does not see why patient could not be discharged back home to the facility today if need be. She will report back if any changes occur.
--- NOTE | 2022-02-13 11:20 | NUR ---
DAUGHTER AT BEDSIDE. SL REMOVED PT ASSISTED TO DRESS FOR HOME. DC INSTRUCTIONS GIVEN PT VERBALIZES UNDERSTANDING
--- NOTE | 2022-02-13 12:26 | NUR ---
THIS RN IN TO ASK PATIENT WHICH HOSPICE THE PATIENT WOULD LIKE TO USE FOR SERVICES. PATIENT VERBALIZED THAT SHE OWULD LIKE TO WORK WITH [facility]. THIS INFORMATION WAS PASSED ON TO SUZANNE FRANCIS.
--- NOTE | 2022-02-14 10:32 | NUR ---
Consult faxed to [facility] as staff did not have correct phone number over the weekend and fax would not go through. I called and spoke with Yoly from Hospice, as pt cont. to return to the hospital for thoracentesis frequently. This is not something hospice would cont. She will call and speak with Helene Hennessy from [facility] about this as pt discharged over the weekend.
== END 2022-02-13 13:10 | disposition home or self-care (01) ==
LOC: ED 23:12 → CCU 23:13 → MS 02-12 10:45
PROVIDERS: ADMIT Internal Medicine; ATTEND Internal Medicine
DX: J96.21 Acute and chronic respiratory failure with hypoxia (principal); J94.8 Other specified pleural conditions; K72.10 Chronic hepatic failure without coma; D63.8 Anemia in other chronic diseases classified elsewhere; K29.70 Gastritis, unspecified, without bleeding; G89.4 Chronic pain syndrome; I10 Essential (primary) hypertension; E78.5 Hyperlipidemia, unspecified; E11.9 Type 2 diabetes mellitus without complications; F33.9 Major depressive disorder, recurrent, unspecified; Z66 Do not resuscitate; Z88.6 Allergy status to analgesic agent; Z20.822 Contact with and (suspected) exposure to COVID-19
CPT/HCPCS: 32555; 36415; 36430; 51702; 71045; 80048; 80053; 82140; 83735; 83880; 84484; 85025; 85610; 85730; 86850; 86900; 86901; 86922; 87502; 94660; 94760; 94799; A9270; C9803; J1940; P9059; U0003